=== PATIENT | male | born 1995 | race Caucasian/White ===

== ENCOUNTER 2017-07-02 17:54 | Inpatient (IN) | payer OTHER ==
[2017-07-02] MEDS ORDERED: SODIUM CHLORIDE 2,000 ML IV STA (18:02)
--- NOTE | 2017-07-02 18:14 | PDOC ---
Attending Attestation - HPI HPI: 07/02/17 18:38 The patient is a 21 year old male with a significant PMH of type I diabetes, nicotine dependence, methamphetamine dependence, opioid and cocaine abuse who presents to the emergency department via EMS for rule out diabetic ketoacidosis. The mother notes the patient disappeared for approximately 24 hours and came back home with altered mental status today. The patient's glucose was high at home and the mother gave the patient 30 units of Lantus but the glucose did not decrease. The patient was recently discharged from another facility for DKA. The patient denies chest pain, shortness of breath, headache and dizziness. Denies fever, chills, nausea, vomit, diarrhea and constipation. Denies dysuria, frequency, urgency and hematuria. Allergies: NKA Past surgical history: None reported. - Physicial Exam PE: 07/02/17 18:14 GENERAL: (+) Ill-appearing. (+) Thin. Awake, alert, and fully oriented, in no acute distress HEAD: No signs of trauma EYES: PERRLA, EOMI, sclera anicteric, conjunctiva clear ENT: (+) Dry mucous membranes. Auricles normal inspection, hearing grossly normal, nares patent, oropharynx clear without exudates. Moist mucosa NECK: Normal ROM, supple, no lymphadenopathy, JVD, or masses LUNGS: Breath sounds equal, clear to auscultation bilaterally. No wheezes, and no crackles HEART: (+) Tachycardic. Regular rate and rhythm, normal S1 and S2, no murmurs, rubs or gallops ABDOMEN: Soft, nontender, normoactive bowel sounds. No guarding, no rebound. No masses EXTREMITIES: Normal range of motion, no edema. No clubbing or cyanosis. No cords, erythema, or tenderness NEUROLOGICAL: Cranial nerves II through XII grossly intact. Normal speech, normal gait SKIN: Warm, Dry, normal turgor, no rashes or lesions noted. <Sapphire Rudd - Last Filed: 07/02/17 18:40> - Resident Resident Name: Penny Ventura - ED Attending Attestation I have performed the following: I have examined & evaluated the patient, The case was reviewed & discussed with the resident, I agree w/resident's findings & plan, Exceptions are as noted - Critical Care Time Total Critical Care Time: 45 Critical Care Statement: The care of this patient involved high complexity decision making to prevent further life threatening deterioration of the patient 's condition and/or to evaluate & treat vital organ system(s) failure or risk of failure. - Medical Decision Making 07/02/17 18:11 A portion of this note was written by my scribe, under my supervision. Vital Signs Temp Pulse Resp BP Pulse Ox 134 H 34 H 116/74 100 07/02/17 18:00 07/02/17 18:00 07/02/17 18:00 07/02/17 18:00 21-year-old male with past medical history of type 1 diabetes, nicotine dependence, methamphetamine dependence, opioid and cocaine abuse brought in by EMS for rule out diabetic ketoacidosis. The patient was recently discharged from another hospital for DKA. Since then, the mother reports that the patient had disappeared for 24 hours and with the patient came back, he was altered. The patient's glucose was over arrange and the mother had given 30 units of Lantus. Patient checked the sugars and sugars here in the ED and they were continually over range. The patient denies any fevers, nausea, vomiting, diarrhea but overall feels unwell. I suspect the patient likely has diabetic ketoacidosis. However, the patient is quite agitated here. This may be potentially from DKA but we'll need to potentially obtain a drug screen, salicylate and acetaminophen and alcohol level given prior history of polysubstance abuse. We'll give labs, IV fluids and likely initiate insulin bolus and drip once last result. Patient should ultimately be admitted to the hospital for further evaluation. <Hamilton Wright - Last Filed: 07/06/17 23:29>
[2017-07-02] MEDS ORDERED: LORazepam 2 MG/ML SDV VIAL ONE (18:47)
--- NOTE | 2017-07-02 19:06 | PDOC ---
History of Present Illness - General Chief Complaint: Blood Sugar Problem Stated Complaint: SUGAR PROBLEM Time Seen by Provider: 07/02/17 18:01 - History of Present Illness Initial Comments: 07/02/17 19:02 Patient is a 21 y.o. male with a PMH of IDDM (Type 1), substance abuse ( including methamphetamines, opioid and heroin abuse, states he is currently on methadone) who was BIBA for suspected DKA. As per EMS, patient was recently discharged for DKA from [facility], was unseen to his family for 24 hours and presented at home today with AMS. Patient's mother gave him 30 units Lantus and called EMS. Patient is alert but intermittently refusing to answer questions but denies any chest pain, dyspnea but does endorse abdominal pain and chills. NKDA Past History - Past Medical History Allergies/Adverse Reactions: Allergies Allergy/AdvReac Type Severity Reaction Status Date / Time No Known Allergies Allergy Unverified 04/17/17 23:51 Home Medications: Ambulatory Orders Insulin Aspart [Novolog] 100 unit SQ ASDIR 07/01/15 Insulin Glargine,Hum.rec.anlog [Lantus Solostar PEN (NF)] 30 units SQ HS Anemia: No Asthma: No Cancer: No Cardiac Disorders: No CVA: No COPD: No CHF: No Diabetes: Yes (Type 1 on Humolog and Lantus) GI Disorders: No Disorders: No HTN: No Hypercholesterolemia: No Kidney Stones: No Liver Disease: No Seizures: No - Surgical History Abdominal Surgery: No Appendectomy: No Cardiac Surgery: No Cholecystectomy: No Lung Surgery: No Neurologic Surgery: No Orthopedic Surgery: No - Reproductive History Testicular Surgery: No - Immunization History Immunization Up to Date: Yes - Suicide/Smoking/Psychosocial Hx Smoking History: Current every day smoker Have you smoked in the past 12 months: Yes Number of Cigarettes Smoked Daily: 20 Information on smoking cessation initiated: No 'Breaking Loose' booklet given: 04/17/17 Hx Alcohol Use: No Drug/Substance Use Hx: No Substance Use Type: Cocaine, Heroin Hx Substance Use Treatment: Yes ([facility]) Review of Systems - Review of Systems Respiratory: No: Shortness of Breath Cardiac (ROS): No: Chest Pain ABD/GI: Yes: Abdominal cramping *Physical Exam - Vital Signs Last Vital Signs Temp Pulse Resp BP Pulse Ox 134 H 34 H 116/74 100 07/02/17 18:00 07/02/17 18:00 07/02/17 18:00 07/02/17 18:00 - Physical Exam General Appearance: Yes: Disheveled, Thin HEENT: positive: EOMI, THIERRY. negative: TM Bulging, TM Dull, TM Erythema Neck: positive: Trachea midline, Supple Respiratory/Chest: positive: Lungs Clear, Other (Kussmaul Breathing). negative : Accessory Muscle Use, Labored Respiration, Rales, Wheezing Cardiovascular: positive: S1, S2 Gastrointestinal/Abdominal: positive: Normal Bowel Sounds, Soft Extremity: positive: Normal Capillary Refill, Normal Inspection Integumentary: positive: Normal Color, Dry, Warm Neurologic: positive: nursing center tutor II-XII NML intact, Alert (intermittently agitated), Motor Strength 5/5, Respond to painful stimul ED Treatment Course - LABORATORY CBC & Chemistry Diagram: 07/02/17 18:53 07/02/17 20:02 - ADDITIONAL ORDERS Additional order review: Laboratory Results 07/02/17 17:56 POC Glucometer > 400 07/02/17 17:56 POC Glucometer > 400 Medical Decision Making - Medical Decision Making 07/02/17 23:03 Patient is a 21 y.o. male who presents in likely DKA. At presentation patient displays Kussmaul breathing and is intermittently agitated. Full sepsis work- up initiated. Patient's Mother, Jennifer Figueroa , contacted, states patient was hospitalized 2 weeks previous for PNA. Patient completed Abx course. Patient intermittently "disappears" returned home today and was shows symptoms similar to previous DKA, patient was given 30 units Lantus. 07/02/17 23:04 Potassium 3.3 --> will replete 10 mEq/L + BS > 600, Insulin Drip @ 0.1 mg/kg. Patient remains hemodynamically stable and afebrile. UDS positive for Cocaine + Methampetamines -- will continue to monitor VS closely while in ED; Lactic Acid 3.1 --> --> IV NS x3. ICU paged for admission. 07/02/17 23:25 Case d/w [employer] in ICU - accepts for admission. No available beds this evening. Will monitor in ED. Oral Temp 97.8. Repeat BS 327. Repeat CMP and rectal temp pending. Clincal goal to close AG overnight. Patient resting comfortably. Patient to be signed out to Dr. Nicko Workman (Resident) and Dr. Aleman (Attending ). *DC/Admit/Observation/Transfer Diagnosis at time of Disposition: DKA, type 1 - Discharge Dispostion Condition at time of disposition: Fair Admit: Yes - Referrals - Patient Instructions - Post Discharge Activity
[2017-07-02 19:14] LABS: VENOUS PC02 22.1 mmHg (38-52); VENOUS PH 7.18 (7.32-7.42)
[2017-07-02 19:15] LABS: VENOUS PO2 48.1 mmHg (28-48)
[2017-07-02 19:18] LABS: HEMATOCRIT 31.8 % (35.4-49); HEMOGLOBIN 9.6 GM/dL (11.7-16.9); MCHC 30.2 g/dl (32.0-35.9); MEAN CELL VOLUME 109.4 fl (80-96); MEAN PLT VOLUME 9.1 fl (7.5-11.1); PLATELET COUNT 577 K/MM3 (134-434); RBC 2.91 M/mm3 (4.00-5.60); RDW 16.7 % (11.9-15.9); WHITE BLOOD COUNT 23.6 K/mm3 (4.0-10.0)
[2017-07-02 19:34] LABS: INR 0.92 (0.82-1.09); PROTHROMBIN TIME (PATIENT) 10.4 SEC (9.98-11.88)
[2017-07-02 19:36] LABS: ACTIVATED PTT 24.3 SECONDS (26.9-34.4)
[2017-07-02] MEDS ORDERED: INSULIN REGULAR 100 UNITS in SODIUM CHLORIDE 99 ML IVPB SCH (19:45)
[2017-07-02 20:37] LABS: ALCOHOL < 5.0 mg/dl (0-5)
[2017-07-02] MEDS ORDERED: SODIUM CHLORIDE 0.9% 1000 ML INFUS.BAG IV ONE (20:40)
[2017-07-02 20:41] LABS: ANISOCYTOSIS 1+; MACROCYTOSIS 0; PLATELET ESTIMATE INCREASED; TARGET CELLS 1+
[2017-07-02 20:41] LABS: URINE APPEARANCE CLEAR; URINE BILIRUBIN NEGATIVE (NEGATIVE); URINE BLOOD NEGATIVE (NEGATIVE); URINE COLOR STRAW; URINE GLUCOSE (UA) 3+ (NEGATIVE); URINE KETONE 2+ (NEGATIVE); URINE LEUK ESTERASE NEGATIVE (NEGATIVE); URINE NITRITE NEGATIVE (NEGATIVE); URINE PROTEIN NEGATIVE (NEGATIVE); URINE UROBILINOGEN NEGATIVE mg/dL (0.2-1.0)
[2017-07-02 21:08] LABS: ALBUMIN 2.3 g/dl (3.4-5.0); ANION GAP 27 (8-16); BILIRUBIN,TOTAL 0.9 mg/dL (0.2-1.0); BLOOD UREA NITROGEN 27 mg/dL (7-18); CALCIUM 7.3 mg/dL (8.5-10.1); CHLORIDE 99 mmol/L (98-107); CO2 11 mmol/L (21-32); CREATININE 1.5 mg/dL (0.7-1.3); POTASSIUM 3.5 mmol/L (3.5-5.1); SGOT/AST 278 U/L (15-37); SODIUM 137 mmol/L (136-145); TOT PROT 5.8 g/dl (6.4-8.2)
[2017-07-02 21:20] LABS: ALK PHOS 462 U/L (45-117)
[2017-07-02 21:22] LABS: SGPT/ALT 459 U/L (12-78)
[2017-07-02 21:23] LABS: GLUCOSE,RANDOM 697 mg/dL (74-106)
[2017-07-02 21:24] LABS: SALICYLATE < 4.0 mg/dl (0.0-30.0)
[2017-07-02 21:25] LABS: ACETAMINOPHEN < 2.0 ug/ml (10.0-30.0)
[2017-07-02 21:32] LABS: METHADONE, UR NEGATIVE ng/ml (CUTOFF=300); PHENCYCLIDINE,URINE NEGATIVE ng/ml (CUTOFF=25); URINE AMPHETAMINES NEGATIVE ng/ml (CUTOFF=500); URINE BARBITURATES NEGATIVE ng/ml (CUTOFF=200); URINE BENZODIAZEPINES NEGATIVE ng/ml (CUTOFF=200)
[2017-07-02 21:34] LABS: COCAINE, UR POSITIVE ng/ml (CUTOFF=300)
[2017-07-02 21:35] LABS: OPIATES, URI POSITIVE ng/ml (CUTOFF=300)
[2017-07-02] MEDS ORDERED: KCL 10 MEQ IVPB 10 MEQ/100 ML INFUS.BAG IVPB SCH (21:45)
--- NOTE | 2017-07-02 22:16 | PDOC ---
*Physical Exam - Vital Signs Last Vital Signs Temp Pulse Resp BP Pulse Ox 83 20 127/90 98 07/02/17 19:58 07/02/17 19:58 07/02/17 19:58 07/02/17 19:58 - Physical Exam General Appearance: No: Apparent Distress Gastrointestinal/Abdominal: positive: Soft. negative: Tender, Distended Neurologic: positive: Normal Response, Motor Strength 5/5 ED Treatment Course - LABORATORY CBC & Chemistry Diagram: 07/04/17 06:30 07/04/17 06:30 - ADDITIONAL ORDERS Additional order review: Laboratory Results 07/02/17 07/02/17 07/02/17 20:30 20:30 20:07 PT with INR INR PTT (Actin FS) VBG pH POC VBG pCO2 POC VBG pO2 Mixed VBG HCO3 Sodium Potassium Chloride Carbon Dioxide Anion Gap BUN Creatinine Creat Clearance w eGFR POC Glucometer Random Glucose Lactic Acid Calcium Phosphorus Magnesium Total Bilirubin AST ALT Alkaline Phosphatase Creatine Kinase Troponin I Total Protein Albumin TSH Urine Color Straw Urine Appearance Clear Urine pH 5.0 Ur Specific [place] 1.017 Urine Protein Negative Urine Glucose (UA) 3+ H Urine Ketones 2+ H Urine Blood Negative Urine Nitrite Negative Urine Bilirubin Negative Urine Urobilinogen Negative Ur Leukocyte Esterase Negative Salicylates < 4.0 Opiates Screen Positive Methadone Screen Negative Acetaminophen < 2.0 L Barbiturate Screen Negative Phencyclidine Screen Negative Ur Amphetamines Screen Negative MDMA (Ecstasy) Screen Negative Benzodiazepines Screen Negative Cocaine Screen Positive U Marijuana (THC) Screen Negative Alcohol, Quantitative < 5.0 Acetone, Qual Blood Type Antibody Screen 07/02/17 07/02/17 07/02/17 20:07 20:02 19:38 PT with INR INR PTT (Actin FS) VBG pH POC VBG pCO2 POC VBG pO2 Mixed VBG HCO3 Sodium 137 Potassium 3.5 Chloride 99 Carbon Dioxide 11 L D Anion Gap 27 H BUN 27 H D Creatinine 1.5 H D Creat Clearance w eGFR 58.00 POC Glucometer Random Glucose 697 H* D Lactic Acid Calcium 7.3 L Phosphorus Magnesium Total Bilirubin 0.9 D AST 278 H D ALT 459 H D Alkaline Phosphatase 462 H D Creatine Kinase 49 Troponin I 0.05 Total Protein 5.8 L Albumin 2.3 L TSH Urine Color Urine Appearance Urine pH Ur Specific [place] Urine Protein Urine Glucose (UA) Urine Ketones Urine Blood Urine Nitrite Urine Bilirubin Urine Urobilinogen Ur Leukocyte Esterase Salicylates Opiates Screen Methadone Screen Acetaminophen Barbiturate Screen Phencyclidine Screen Ur Amphetamines Screen MDMA (Ecstasy) Screen Benzodiazepines Screen Cocaine Screen U Marijuana (THC) Screen Alcohol, Quantitative Acetone, Qual Positive large 3+ Cancelled Blood Type Antibody Screen 07/02/17 07/02/17 07/02/17 19:38 18:53 18:53 PT with INR INR PTT (Actin FS) VBG pH POC VBG pCO2 POC VBG pO2 Mixed VBG HCO3 Sodium Potassium Chloride Carbon Dioxide Anion Gap BUN Creatinine Creat Clearance w eGFR POC Glucometer Random Glucose Lactic Acid 3.0 H* Calcium Phosphorus Magnesium Total Bilirubin AST ALT Alkaline Phosphatase Creatine Kinase Troponin I Total Protein Albumin TSH Urine Color Urine Appearance Urine pH Ur Specific [place] Urine Protein Urine Glucose (UA) Urine Ketones Urine Blood Urine Nitrite Urine Bilirubin Urine Urobilinogen Ur Leukocyte Esterase Salicylates Cancelled Opiates Screen Methadone Screen Acetaminophen Cancelled Barbiturate Screen Phencyclidine Screen Ur Amphetamines Screen MDMA (Ecstasy) Screen Benzodiazepines Screen Cocaine Screen U Marijuana (THC) Screen Alcohol, Quantitative Cancelled Acetone, Qual Blood Type B POSITIVE Antibody Screen Negative 07/02/17 07/02/17 07/02/17 18:53 18:53 18:53 PT with INR 10.40 INR 0.92 PTT (Actin FS) 24.3 L VBG pH 7.18 L* D POC VBG pCO2 22.1 L D POC VBG pO2 48.1 H D Mixed VBG HCO3 7.9 L* Sodium Cancelled Potassium Cancelled Chloride Cancelled Carbon Dioxide Cancelled Anion Gap Cancelled BUN Cancelled Creatinine Cancelled Creat Clearance w eGFR Cancelled POC Glucometer Random Glucose Cancelled Lactic Acid Calcium Cancelled Phosphorus Cancelled Magnesium Cancelled Total Bilirubin Cancelled AST Cancelled ALT Cancelled Alkaline Phosphatase Cancelled Creatine Kinase Cancelled Troponin I Cancelled Total Protein Cancelled Albumin Cancelled TSH Cancelled Urine Color Urine Appearance Urine pH Ur Specific [place] Urine Protein Urine Glucose (UA) Urine Ketones Urine Blood Urine Nitrite Urine Bilirubin Urine Urobilinogen Ur Leukocyte Esterase Salicylates Opiates Screen Methadone Screen Acetaminophen Barbiturate Screen Phencyclidine Screen Ur Amphetamines Screen MDMA (Ecstasy) Screen Benzodiazepines Screen Cocaine Screen U Marijuana (THC) Screen Alcohol, Quantitative Acetone, Qual Blood Type Antibody Screen 07/02/17 17:56 PT with INR INR PTT (Actin FS) VBG pH POC VBG pCO2 POC VBG pO2 Mixed VBG HCO3 Sodium Potassium Chloride Carbon Dioxide Anion Gap BUN Creatinine Creat Clearance w eGFR POC Glucometer > 400 Random Glucose Lactic Acid Calcium Phosphorus Magnesium Total Bilirubin AST ALT Alkaline Phosphatase Creatine Kinase Troponin I Total Protein Albumin TSH Urine Color Urine Appearance Urine pH Ur Specific [place] Urine Protein Urine Glucose (UA) Urine Ketones Urine Blood Urine Nitrite Urine Bilirubin Urine Urobilinogen Ur Leukocyte Esterase Salicylates Opiates Screen Methadone Screen Acetaminophen Barbiturate Screen Phencyclidine Screen Ur Amphetamines Screen MDMA (Ecstasy) Screen Benzodiazepines Screen Cocaine Screen U Marijuana (THC) Screen Alcohol, Quantitative Acetone, Qual Blood Type Antibody Screen 07/02/17 07/02/17 18:53 17:56 RBC 2.91 L D MCV 109.4 H D MCHC 30.2 L RDW 16.7 H MPV 9.1 Neutrophils % No Result Required. Lymphocytes % No Result Required. POC Glucometer > 400 - Medications Given in the ED: ED Medications Discontinued Medications Generic Name Dose Route Start Last Admin Trade Name Cherelle PRN Reason Stop Dose Admin Diphenhydramine HCl 25 mg 07/02/17 18:47 07/02/17 18:50 Benadryl Injection - IVPUSH 07/02/17 18:48 25 mg ONCE ONE Administration Sodium Chloride 2,000 mls @ 1,000 mls/hr 07/02/17 18:02 07/02/17 19:13 Normal Saline - IV 07/02/17 20:01 1,000 mls/hr ASDIR STA Administration Insulin Human Regular 100 100 mls @ 6.8 mls/hr 07/02/17 19:45 07/02/17 21:36 units/ Sodium Chloride IVPB Not Given TITR ROBIN Protocol 0.1 UNITS/KG/HR Lorazepam 1 mg 07/02/17 18:39 07/02/17 19:36 Ativan Injection - IM 07/02/17 18:40 Not Given ONCE ONE Lorazepam 1 mg 07/02/17 18:47 07/02/17 18:50 Ativan Injection - IVPUSH 07/02/17 18:48 1 mg ONCE ONE Administration Sodium Chloride 1,000 ml 07/02/17 20:40 07/02/17 20:46 Normal Saline - IV 07/02/17 20:41 1,000 ml ONCE ONE Administration Medical Decision Making - Medical Decision Making 07/02/17 22:15 Pt received on signout at 7pm from Dr. Wright. Labs reviewed, pt appears 07/10/17 22:47 Completing note now: Received pt on signout, was noted to be sleeping but easily arousable. For DKA, was on insulin gtt, IVF with KCl. Also with transaminitis, no abd pain/tnd. After treatment overnight, gap closed and pt received long acting insulin, was given food. Admitted to floor for further management. *DC/Admit/Observation/Transfer Diagnosis at time of Disposition: DKA, type 1 - Discharge Dispostion Disposition: AGAINST MEDICAL ADVICE Condition at time of disposition: Fair - Referrals - Patient Instructions - Post Discharge Activity
[2017-07-02] MEDS: INSULIN REGULAR 100 UNITS in SODIUM CHLORIDE 99 ML IVPB SCH (22:55)
[2017-07-02] MEDS ORDERED: SODIUM CHLORIDE 0.9% 500 ML INFUS.BAG IV ONE (23:40)
[2017-07-03 00:17] LABS: ALBUMIN 2.3 g/dl (3.4-5.0); ANION GAP 21 (8-16); BILIRUBIN,TOTAL 0.9 mg/dL (0.2-1.0); BLOOD UREA NITROGEN 22 mg/dL (7-18); CALCIUM 7.7 mg/dL (8.5-10.1); CHLORIDE 105 mmol/L (98-107); CO2 19 mmol/L (21-32); CREATININE 1.5 mg/dL (0.7-1.3); POTASSIUM 3.3 mmol/L (3.5-5.1); SGOT/AST 265 U/L (15-37); SODIUM 145 mmol/L (136-145); TOT PROT 5.8 g/dl (6.4-8.2)
[2017-07-03 00:18] LABS: ALK PHOS 443 U/L (45-117)
[2017-07-03 00:19] LABS: SGPT/ALT 448 U/L (12-78)
[2017-07-03 00:20] LABS: GLUCOSE,RANDOM 338 mg/dL (74-106)
[2017-07-03] MEDS ORDERED: POTASSIUM CHLORIDE 20 MEQ PREMIX IVPB 100 ML IVPB ONE (00:20)
[2017-07-03] MEDS ORDERED: KCL 10 MEQ IVPB 20 MEQ/200 ML INFUS.BAG IVPB ONE (00:25)
[2017-07-03] MEDS ORDERED: SODIUM CHLORIDE 1,000 ML IV SCH ×3 (00:45→18:00)
[2017-07-03] MEDS: DEXTROSE 5%-0.45% SALINE 1,000 ML IV SCH ×2 (02:28→02:30)
[2017-07-03 04:45] LABS: VENOUS PC02 36.7 mmHg (38-52); VENOUS PH 7.45 (7.32-7.42); VENOUS PO2 43.8 mmHg (28-48)
[2017-07-03 05:08] LABS: ALBUMIN 2.2 g/dl (3.4-5.0); ALK PHOS 418 U/L (45-117); ANION GAP 12 (8-16); BILIRUBIN,TOTAL 0.8 mg/dL (0.2-1.0); BLOOD UREA NITROGEN 19 mg/dL (7-18); CALCIUM 7.2 mg/dL (8.5-10.1); CHLORIDE 113 mmol/L (98-107); CO2 24 mmol/L (21-32); CREATININE 1.4 mg/dL (0.7-1.3); GLUCOSE,RANDOM 141 mg/dL (74-106); POTASSIUM 3.6 mmol/L (3.5-5.1); SGOT/AST 317 U/L (15-37); SGPT/ALT 438 U/L (12-78); SODIUM 149 mmol/L (136-145); TOT PROT 5.5 g/dl (6.4-8.2)
[2017-07-03] MEDS ORDERED: INSULIN DETEMIR 100 UNITS/ML MDV SQ ONE ×3 (05:35→06:48)
[2017-07-03 09:44] LABS: BASO % 0.8 % (0-2.0); EOS % 1.2 % (0-4.5); HEMATOCRIT 22.6 % (35.4-49); HEMOGLOBIN 7.6 GM/dL (11.7-16.9); LYMPH % 16.9 % (8-40); MCH 32.7 pg (25.7-33.7); MCHC 33.5 g/dl (32.0-35.9); MEAN CELL VOLUME 97.7 fl (80-96); MEAN PLT VOLUME 8.3 fl (7.5-11.1); MONO % 6.1 % (3.8-10.2); PLATELET COUNT 373 K/MM3 (134-434); RBC 2.31 M/mm3 (4.00-5.60); RDW 15.6 % (11.9-15.9); WHITE BLOOD COUNT 15.4 K/mm3 (4.0-10.0)
[2017-07-03] MEDS ORDERED: SODIUM CHLORIDE 0.45% 1,000 ML IV SCH (11:00)
--- NOTE | 2017-07-03 13:17 | HP ---
Admitting History and Physical - Smoking History Smoking history: Current every day smoker Have you smoked in the past 12 months: Yes Aproximately how many cigarettes per day: 20 - Alcohol/Substance Use Hx Alcohol Use: No Home Medications - Allergies Allergies/Adverse Reactions: Allergies Allergy/AdvReac Type Severity Reaction Status Date / Time No Known Allergies Allergy Unverified 04/17/17 23:51 - Home Medications Home Medications: Ambulatory Orders Insulin Aspart [Novolog] 100 unit SQ ASDIR 07/01/15 Insulin Glargine,Hum.rec.anlog [Lantus Solostar PEN (NF)] 30 units SQ HS Physical Examination Vital Signs: Vital Signs Temperature 98.9 F 07/03/17 09:24 Pulse Rate 87 07/03/17 09:24 Respiratory Rate 16 07/03/17 09:24 Blood Pressure 139/82 07/03/17 09:24 O2 Sat by Pulse Oximetry (%) 97 07/03/17 09:24 Labs: CBC, BMP 07/03/17 09:30 07/03/17 04:21
[2017-07-03] MEDS ORDERED: LEVOFLOXACIN 500 MG IVPB 500 MG/100 ML BAG IVPB ONE (13:18)
[2017-07-03] MEDS ORDERED: METRONIDAZOLE 500 MG PREMIXED 500 MG/100 ML MG IVPB ONE (13:18)
[2017-07-03] MEDS: METRONIDAZOLE 500 MG PREMIXED 500 MG/100 ML MG IVPB SCH ×2 (13:48→17:38)
[2017-07-03 14:09] LABS: AMYLASE 44 U/L (25-115)
[2017-07-03 14:16] LABS: LIPASE 437 U/L (73-393)
[2017-07-03 14:48] VITALS: BMI 23.5
--- NOTE | 2017-07-03 14:52 | CON.ID ---
Consult Consult Specialty:: infectious diseases Reason for Consultation:: ams,r/o uti - History of Present Illness History of Present Illness: 21 y.o. male with a PMH of IDDM (Type 1), substance abuse (including methamphetamines, opioid and heroin abuse, states he is currently on methadone) who was BIBA for suspected DKA. As per EMS, patient was recently discharged for DKA from [facility], was unseen to his family for 24 hours and presented at home today with AMS. Patient's mother gave him 30 units Lantus and called EMS. patient currently feels much better patient it seems also has known h/o of hep c patient is hungry and wants to eat - History Source History Provided By: Patient, Medical Record Limitations to Obtaining History: Poor Historian - Alcohol/Substance Use Hx Alcohol Use: No - Smoking History Smoking history: Current every day smoker Have you smoked in the past 12 months: Yes Aproximately how many cigarettes per day: 20 Home Medications - Allergies Allergies/Adverse Reactions: Allergies Allergy/AdvReac Type Severity Reaction Status Date / Time No Known Allergies Allergy Unverified 04/17/17 23:51 - Home Medications Home Medications: Ambulatory Orders Insulin Aspart [Novolog] 100 unit SQ ASDIR 07/01/15 Insulin Glargine,Hum.rec.anlog [Lantus Solostar PEN (NF)] 30 units SQ HS Review of Systems - Review of Systems Constitutional: reports: No Symptoms Eyes: reports: No Symptoms HENT: reports: No Symptoms Neck: reports: No Symptoms Cardiovascular: reports: No Symptoms Respiratory: reports: No Symptoms Gastrointestinal: reports: No Symptoms Genitourinary: reports: No Symptoms Musculoskeletal: reports: No Symptoms Integumentary: reports: No Symptoms Neurological: reports: Change in LOC Endocrine: reports: Other (increased sugars) Hematology/Lymphatic: reports: No Symptoms Psychiatric: reports: No Symptoms Physical Exam Vital Signs: Vital Signs Temperature 98.9 F 07/03/17 09:24 Pulse Rate 87 07/03/17 09:24 Respiratory Rate 16 07/03/17 09:24 Blood Pressure 139/82 07/03/17 09:24 O2 Sat by Pulse Oximetry (%) 97 07/03/17 09:24 Constitutional: Yes: No Distress, Calm, Thin Eyes: Yes: Conjunctiva Clear HENT: Yes: Atraumatic, Normocephalic Neck: Yes: Supple, Trachea Midline Cardiovascular: Yes: Regular Rate and Rhythm Respiratory: Yes: Regular, CTA Bilaterally Gastrointestinal: Yes: Normal Bowel Sounds, Soft Extremities: Yes: WNL Neurological: Yes: Alert, Oriented Psychiatric: Yes: Alert, Oriented Labs: CBC, BMP 07/03/17 09:30 07/03/17 04:21 Imaging - Results X-ray: Report Reviewed, Image Reviewed Ultrasound: Report Reviewed, Image Reviewed Assessment/Plan patient evaluated i think all his symptoms are coming from dehydration looked at all the cx all of them are negative anemia uncontrolled dm Ischemic hepatitis Code(s): K75.9 - INFLAMMATORY LIVER DISEASE, UNSPECIFIED dehydration plan will not start any abx close watch hydration rest as per primary team
[2017-07-03] MEDS: LEVOFLOXACIN 500 MG IVPB 500 MG/100 ML BAG IVPB SCH (15:08)
[2017-07-03] MEDS ORDERED: PNEUMOC 13-VAL CONJ-DIP CRM/PF 0.5 ML DISP.SYRIN IM ONE (16:15)
--- NOTE | 2017-07-03 17:16 | CONSULT ---
Consult Consult Specialty:: Hematology - History of Present Illness History of Present Illness: 21 y/o male with PMH of Type I DM, DKA cocaine abuse , we were asked to see for Anemia. He denies nausea, no vomiting, no dysphagia. Pt mentioned he has h/o Hep C. - - History Source History Provided By: Patient, Medical Record - Alcohol/Substance Use Hx Alcohol Use: No - Smoking History Smoking history: Current every day smoker Have you smoked in the past 12 months: Yes Aproximately how many cigarettes per day: 20 Home Medications - Allergies Allergies/Adverse Reactions: Allergies Allergy/AdvReac Type Severity Reaction Status Date / Time No Known Allergies Allergy Unverified 04/17/17 23:51 - Home Medications Home Medications: Ambulatory Orders Insulin Aspart [Novolog] 100 unit SQ ASDIR 07/01/15 Insulin Glargine,Hum.rec.anlog [Lantus Solostar PEN (NF)] 30 units SQ HS Review of Systems - Review of Systems Constitutional: reports: Lethargy, Loss of Appetite. denies: Unintentional Wgt. Loss HENT: denies: Difficult Swallowing Neck: denies: Decreased ROM, Lumps Cardiovascular: denies: Chest Pain, Edema, Palpitations, Shortness of Breath Respiratory: denies: Cough, Exercise Intolerance, Orthopnea Genitourinary: denies: Burning Physical Exam Vital Signs: Vital Signs Temperature 98.9 F 07/03/17 09:24 Pulse Rate 94 H 07/03/17 14:42 Respiratory Rate 18 07/03/17 14:42 Blood Pressure 119/77 07/03/17 14:42 O2 Sat by Pulse Oximetry (%) 97 07/03/17 09:24 Constitutional: Yes: No Distress, Calm Eyes: Yes: Conjunctiva Clear HENT: Yes: Atraumatic, Normocephalic Neck: Yes: Supple Cardiovascular: Yes: Regular Rate and Rhythm Respiratory: Yes: Regular Gastrointestinal: Yes: Normal Bowel Sounds, Soft Edema: No Neurological: Yes: Alert, Oriented Psychiatric: Yes: Alert, Oriented Labs: CBC, BMP 07/03/17 09:30 07/03/17 04:21 Imaging - Results X-ray: Report Reviewed Assessment/Plan Anemia: Likely ACD, from DM/DKA/HepC For screening labs including DANIELLE transfuse for <7 r/o hemolysis in the setting of cocaine abuse Elevated LFTs Preserved Bili/Coags pt mentioned that he has h/o Hep C, from IVDA. component of ischemia is not ruled out. IVF. Hep C ,A, B panel \HCV VL GI c/s noted Uncontrolled DM: Endo c/s Monitor WD consider Detox consult.. consider HIV test d/w RN
[2017-07-03] MEDS: INSULIN SLIDING SCALE (NOVOLOG) 1 VIAL SQ SCH ×2 (17:38→21:03)
--- NOTE | 2017-07-03 17:59 | CON.GI ---
Consult Consult Specialty:: gastroenterology Referred by:: Dr Goodwin - History of Present Illness History of Present Illness: 21 y/o male with PMH OF DKA cocaine abude was asked to be seen because of moderated severe elevation of LFTS associated with uncontrolled diabetes. He denies nausea, no vomiting, no dysphagia - Alcohol/Substance Use Hx Alcohol Use: No - Smoking History Smoking history: Current every day smoker Have you smoked in the past 12 months: Yes Aproximately how many cigarettes per day: 20 Home Medications - Allergies Allergies/Adverse Reactions: Allergies Allergy/AdvReac Type Severity Reaction Status Date / Time No Known Allergies Allergy Unverified 04/17/17 23:51 - Home Medications Home Medications: Ambulatory Orders Insulin Aspart [Novolog] 100 unit SQ ASDIR 07/01/15 Insulin Glargine,Hum.rec.anlog [Lantus Solostar PEN (NF)] 30 units SQ HS Physical Exam-GI Vital Signs: Vital Signs Temperature 98.9 F 07/03/17 09:24 Pulse Rate 94 H 07/03/17 14:42 Respiratory Rate 18 07/03/17 14:42 Blood Pressure 119/77 07/03/17 14:42 O2 Sat by Pulse Oximetry (%) 97 07/03/17 09:24 Constitutional: Yes: Well Nourished Eyes: Yes: Conjunctiva Clear HENT: Yes: Atraumatic Neck: Yes: Supple Cardiovascular: Yes: Regular Rate and Rhythm Respiratory: Yes: CTA Bilaterally ...Palpate: Yes: Soft. No: Firm/Rigid, Guarding, Hepatomegaly, Mass, Pulsatile Mass, Splenomegaly, Tenderness Labs: CBC, BMP 07/03/17 09:30 07/03/17 04:21 INR, PTT INR 0.92 (0.82-1.09) 07/02/17 18:53 Problem List - Problems (1) Ischemic hepatitis Assessment/Plan: secondary to cocaine abuse and uncontrolled Diabetes leading to dehydration R> IV hydration expect LfTS to normalize Code(s): K75.9 - INFLAMMATORY LIVER DISEASE, UNSPECIFIED
[2017-07-03 18:48] LABS: BASO % 1.5 % (0-2.0); HEMATOCRIT 23.1 % (35.4-49); HEMOGLOBIN 7.8 GM/dL (11.7-16.9); LYMPH % 17.8 % (8-40); MCH 33.1 pg (25.7-33.7); MCHC 33.6 g/dl (32.0-35.9); MEAN CELL VOLUME 98.6 fl (80-96); MEAN PLT VOLUME 8.8 fl (7.5-11.1); MONO % 6.4 % (3.8-10.2); NEUT % 73.3 % (42.8-82.8); PLATELET COUNT 340 K/MM3 (134-434); RBC 2.34 M/mm3 (4.00-5.60); RDW 15.5 % (11.9-15.9)
[2017-07-03] MEDS ORDERED: INSULIN (NOVOLOG) ASPART 100 UNITS/ML 10ML VIAL ONE (21:02)
[2017-07-03] MEDS: INSULIN REGULAR 100 UNITS in SODIUM CHLORIDE 99 ML IVPB SCH (21:30)
[2017-07-03] MEDS ORDERED: INSULIN DETEMIR 100 UNITS/ML MDV SQ SCH (22:00)
[2017-07-04] MEDS: METRONIDAZOLE 500 MG PREMIXED 500 MG/100 ML MG IVPB SCH ×2 (01:09→10:53)
[2017-07-04 06:36] VITALS: BP 117/71; PULSE 79; TEMP 97.9
[2017-07-04] MEDS: INSULIN SLIDING SCALE (NOVOLOG) 1 VIAL SQ SCH ×2 (08:03→11:13)
--- NOTE | 2017-07-04 08:07 | EKG ---
Test Reason : Blood Pressure : / mmHG Vent. Rate : 080 BPM Atrial Rate : 080 BPM P-R Int : 132 ms QRS Dur : 088 ms QT Int : 400 ms P-R-T Axes : 076 080 070 degrees QTc Int : 461 ms NORMAL SINUS RHYTHM NORMAL ECG WHEN COMPARED WITH ECG OF 18-APR-2017 08:33, NO SIGNIFICANT CHANGE WAS FOUND Confirmed by ALFREDO SMITH MD ([id number]) on 07/04/2017 8:06:58 AM Referred By: Confirmed By:ALFREDO SMITH MD
[2017-07-04 08:10] LABS: BASO % 1.2 % (0-2.0); EOS % 0.8 % (0-4.5); HEMATOCRIT 24.6 % (35.4-49); HEMOGLOBIN 8.3 GM/dL (11.7-16.9); LYMPH % 37.9 % (8-40); MCHC 33.5 g/dl (32.0-35.9); MEAN CELL VOLUME 98.5 fl (80-96); MEAN PLT VOLUME 8.1 fl (7.5-11.1); MONO % 7.8 % (3.8-10.2); NEUT % 52.3 % (42.8-82.8); PLATELET COUNT 318 K/MM3 (134-434); WHITE BLOOD COUNT 4.2 K/mm3 (4.0-10.0)
[2017-07-04 08:45] LABS: ALBUMIN 2.2 g/dl (3.4-5.0); ANION GAP 8 (8-16); BLOOD UREA NITROGEN 10 mg/dL (7-18); CALCIUM 7.6 mg/dL (8.5-10.1); CHLORIDE 102 mmol/L (98-107); CO2 30 mmol/L (21-32); GLUCOSE,RANDOM 141 mg/dL (74-106); POTASSIUM 3.6 mmol/L (3.5-5.1); SODIUM 140 mmol/L (136-145)
[2017-07-04] MEDS: LEVOFLOXACIN 500 MG IVPB 500 MG/100 ML BAG IVPB SCH (10:12)
[2017-07-04 10:33] LABS: ALK PHOS 471 U/L (45-117); BILIRUBIN,TOTAL 1.2 mg/dL (0.2-1.0); CREATININE 0.9 mg/dL (0.7-1.3); TOT PROT 5.7 g/dl (6.4-8.2)
[2017-07-04 10:44] LABS: LDH 1105 U/L (87-241); SGOT/AST 2247 U/L (15-37); SGPT/ALT 872 U/L (12-78)
[2017-07-04] MEDS ORDERED: INSULIN (NOVOLOG) ASPART 100 UNITS/ML 10ML VIAL ONE (11:12)
--- NOTE | 2017-07-04 13:01 | CONSULT ---
Consult Consult Specialty:: endocrine Referred by:: dr.rocco solis Reason for Consultation:: diabetes mellitus - History of Present Illness History of Present Illness: patient signed out ama - Alcohol/Substance Use Hx Alcohol Use: No - Smoking History Smoking history: Current every day smoker Have you smoked in the past 12 months: Yes Aproximately how many cigarettes per day: 20 Home Medications - Allergies Allergies/Adverse Reactions: Allergies Allergy/AdvReac Type Severity Reaction Status Date / Time No Known Allergies Allergy Unverified 04/17/17 23:51 - Home Medications Home Medications: Ambulatory Orders Insulin Aspart [Novolog] 100 unit SQ ASDIR 07/01/15 Insulin Glargine,Hum.rec.anlog [Lantus Solostar PEN (NF)] 30 units SQ HS Physical Exam Vital Signs: Vital Signs Temperature 97.9 F 07/04/17 06:35 Pulse Rate 79 07/04/17 06:35 Respiratory Rate 79 H 07/04/17 09:00 Blood Pressure 117/71 07/04/17 06:35 O2 Sat by Pulse Oximetry (%) 97 07/03/17 09:24 Labs: CBC, BMP 07/04/17 06:30 07/04/17 06:30 Assessment/Plan dka iddm uncontrolled diet and compliance issues advised to follow up as outpatient signed out ama take insulin as direction given will need close monitoring outpatient
[2017-07-05 06:06] LABS: SERUM IRON SATURATION 39 % (15-55); TOTAL IRON BINDING CAPACITY 246 ug/dL (250-450); UIBC 150 ug/dL (111-343)
[2017-07-06 00:11] LABS: HBSAG SCREEN Negative (Negative); HEP A AB, IGM Negative (Negative); HEP B CORE AB, TOT Negative (Negative)
[2017-07-06 14:14] LABS: HGB SOLUBILITY Negative (Negative); Hgb A 97.7 % (96.4-98.8); Hgb C 0 % (0.0); Hgb F 0 % (0.0-2.0); Hgb S 0 % (0.0)
--- NOTE | 2017-07-10 21:36 | DS ---
Physical Examination Vital Signs: Vital Signs Temperature 97.9 F 07/04/17 06:35 Pulse Rate 79 07/04/17 06:35 Respiratory Rate 79 H 07/04/17 09:00 Blood Pressure 117/71 07/04/17 06:35 O2 Sat by Pulse Oximetry (%) 97 07/03/17 09:24 Labs: CBC, BMP 07/04/17 06:30 07/04/17 06:30 Discharge Summary Reason For Visit: TYPE 1 DIABETES MELLITUS W/KETOACIDOSIS Condition: Fair - Instructions Disposition: AGAINST MEDICAL ADVICE - Home Medications Comprehensive Discharge Medication List: Ambulatory Orders Insulin Aspart [Novolog] 100 unit SQ ASDIR 07/01/15 Insulin Glargine,Hum.rec.anlog [Lantus Solostar PEN (NF)] 30 units SQ HS
== END 2017-07-04 12:52 | disposition left against medical advice (07) | DRG 420 ==
LOC: JER 17:54 → JERBED 07-03 00:08 → UNDOADMIN 07-03 00:18 → JERBED 07-03 00:18 → J6S 07-03 15:44
PROVIDERS: ADMIT Internal Medicine; ATTEND Internal Medicine
DX: E10.10 Type 1 diabetes mellitus with ketoacidosis without coma (principal); F17.210 Nicotine dependence, cigarettes, uncomplicated; F15.20 Other stimulant dependence, uncomplicated; F14.10 Cocaine abuse, uncomplicated; Z79.4 Long term (current) use of insulin; F11.20 Opioid dependence, uncomplicated; B19.20 Unspecified viral hepatitis C without hepatic coma; E86.0 Dehydration
CPT/HCPCS: 36415; 71045-TC; 76700-TC; 80053; 80307; 81003; 82009; 82150; 82550; 82607; 82728; 82747; 82784; 82803; 82947; 82962; 83021; 83540; 83550; 83605; 83615; 83690; 84155; 84165; 84484; 85014; 85025; 85044; 85610; 85660; 85730; 86038; 86334; 86704; 86706; 86708; 86803; 86850; 86900; 86901; 87040; 87086; 87340; 87522; 93005; 93010; 99285-25

== ENCOUNTER 2017-07-23 22:44 | Inpatient (IN) | payer OTHER ==
[2017-07-23] MEDS ORDERED: NALOXONE HCL 0.4 MG/ML VIAL ONE ×2 (22:54→23:13)
[2017-07-23] MEDS ORDERED: SODIUM CHLORIDE 1,000 ML IV STA (23:14)
[2017-07-23] MEDS ORDERED: NALOXONE HCL 0.4 MG/ML VIAL IVPUSH ONE (23:15)
[2017-07-23] MEDS ORDERED: SODIUM CHLORIDE 0.9% 500 ML INFUS.BAG IV ONE (23:16)
[2017-07-23] MEDS ORDERED: ONDANSETRON 4 MG/2 ML VIAL IVPUSH ONE (23:16)
[2017-07-23] MEDS ORDERED: PIPERACILLIN/TAZOB 4.5 GM 4.5 GM in DEXTROSE 5%-WATER - 100 ML IVPB ONE (23:17)
[2017-07-23] MEDS ORDERED: VANCOMYCIN 1,000 MG in DEXTROSE 5%-WATER - 250 ML IVPB ONE (23:17)
[2017-07-23] MEDS ORDERED: PANTOPRAZOLE SODIUM 40 MG VIAL IVPUSH ONE (23:17)
--- NOTE | 2017-07-23 23:25 | PDOC ---
Attending Attestation - HPI HPI: 07/24/17 02:15 The patient is a 21 year old male with history of IDDM, Hep C, polysubstance abuse, brought to the ED for decreased mental status and difficulty breathing that began this evening. The patient states he last used heroin approximately 2 hours prior to ED arrival. He also reports he last took his Insulin several hours ago. Remainder of history limited secondary to clinical condition - Physicial Exam PE: 07/24/17 02:15 GENERAL: Awake, alert, ill appearing and cachectic HEAD: No signs of trauma EYES: PERRLA, EOMI, sclera anicteric, conjunctiva clear ENT: Auricles normal inspection, hearing grossly normal, nares patent, +Dry oral mucosa with dried coffee ground emesis NECK: Normal ROM, supple, no lymphadenopathy, JVD, or masses LUNGS: Tachypneic to 42 with kussmaul breathing. No wheezes, and no crackles HEART: Tachycardic to 147, regular rhythm, normal S1 and S2, no murmurs, rubs or gallops ABDOMEN: Soft, nontender, normoactive bowel sounds. No guarding, no rebound. No masses EXTREMITIES: Normal range of motion, no edema. No clubbing or cyanosis. No cords, erythema, or tenderness BACK: No midline spinal tenderness in cervical/thoracic/lumbar region NEUROLOGICAL: Deferred secondary to clinical condition SKIN: Track crook on upper extremities and the right side of neck. Left antecubital fossa has a fluctuant, indurated, erythematous abscess, spontaneously draining purulent material. - Medical Decision Making 07/24/17 02:15 Documentation prepared by Krysta Garcia, acting as medical esthetician for Hector Bhakta MD. <Krysta Garcia - Last Filed: 07/24/17 02:15> - Resident Resident Name: Dino Reilly - ED Attending Attestation I have performed the following: I have examined & evaluated the patient, The case was reviewed & discussed with the resident, I agree w/resident's findings & plan, Exceptions are as noted - Medical Decision Making 07/23/17 23:22 21-year-old male with a history of type 1 diabetes, polysubstance abuse presents to the emergency department with depressed mental status, hypotension to 70/48, tachycardia to 140, and tachypnea to 44. Patient given Narcan with some improvement in mental status. Fingerstick on arrival critically high. An IO was placed in his R tibia with fluids running for resuscitation and 2 peripheral IVs were placed. Patient likely in DKA, and may have also overdosed on heroin today, admits to using a bag. May also be septic given abscess to LUE. PT covered with Vanc/Zosyn. Will obtain labs, XR, UA, pt will likely require ICU. 07/24/17 02:[address] Goodwin to the ICU for DKA and presumed sepsis. ICU PROJECT ENGINEER aware but no beds. Initial lactate 13, K repleted, Insulin gtt initiated. Case discussed in detail with admitting physician including history, physical exam and ancillary studies. Admitting physician has assumed care for the patient, will follow all pending diagnostics and will complete the evaluation and treatment. <Hector Bhakta - Last Filed: 07/24/17 06:16> Heart Score/ECG Review #1 07/24/17 06:15 Twelve-lead EKG was performed and reviewed by me. Sinus tachycardia, rate 121. Normal axis. No ST elevations. <Hector Bhakta - Last Filed: 07/24/17 06:16>
[2017-07-23 23:50] LABS: HEMATOCRIT 30.4 % (35.4-49); HEMOGLOBIN 9.9 GM/dL (11.7-16.9); MCH 34.1 pg (25.7-33.7); MCHC 32.6 g/dl (32.0-35.9); MEAN CELL VOLUME 104.4 fl (80-96); MEAN PLT VOLUME 8.5 fl (7.5-11.1); PLATELET COUNT 249 K/MM3 (134-434); RBC 2.92 M/mm3 (4.00-5.60); RDW 16.1 % (11.9-15.9); WHITE BLOOD COUNT 10.6 K/mm3 (4.0-10.0)
[2017-07-23 23:53] LABS: VENOUS PH 7.32 (7.32-7.42)
[2017-07-23 23:56] LABS: ADD RBC MORPHOLOGY YES
--- NOTE | 2017-07-24 00:07 | PDOC ---
History of Present Illness - General Chief Complaint: Overdose Stated Complaint: FATIGUE History Source: Patient Exam Limitations: Clinical Condition - History of Present Illness Initial Comments: 07/24/17 00:04 The patient is a 21M with a PMH of IDDM (Type 1), substance abuse (including methamphetamines, opioid and heroin abuse, states he is currently on methadone) who was brought in by friends. History is limited 2/2 clinical condition. The patient states that he "has pneumonia". No other history could be provided. Past History - Past Medical History Allergies/Adverse Reactions: Allergies Allergy/AdvReac Type Severity Reaction Status Date / Time No Known Allergies Allergy Verified 07/23/17 23:11 Home Medications: Ambulatory Orders Insulin Aspart [Novolog] 100 unit SQ ASDIR 07/01/15 Insulin Glargine,Hum.rec.anlog [Lantus Solostar PEN (NF)] 30 units SQ HS Anemia: No Asthma: No Cancer: No Cardiac Disorders: No CVA: No COPD: No CHF: No Diabetes: Yes (Type 1 on Humolog and Lantus) GI Disorders: No Disorders: No HTN: No Hypercholesterolemia: No Kidney Stones: No Liver Disease: No Seizures: No - Surgical History Abdominal Surgery: No Appendectomy: No Cardiac Surgery: No Cholecystectomy: No Lung Surgery: No Neurologic Surgery: No Orthopedic Surgery: No - Reproductive History Testicular Surgery: No - Immunization History Immunization Up to Date: Yes - Suicide/Smoking/Psychosocial Hx Smoking History: Unknown if ever smoked Have you smoked in the past 12 months: Yes Number of Cigarettes Smoked Daily: 20 'Breaking Loose' booklet given: 07/03/17 Hx Alcohol Use: No Drug/Substance Use Hx: No Substance Use Type: None Hx Substance Use Treatment: Yes ([facility]) Review of Systems - Review of Systems Able to Perform ROS?: No (clinical condition) Is the patient limited Sinhala proficient: No *Physical Exam - Vital Signs Last Vital Signs Temp Pulse Resp BP Pulse Ox 99.3 F 141 H 44 H 71/42 89 L 07/24/17 00:02 07/23/17 23:11 07/23/17 23:11 07/23/17 23:11 07/23/17 23:11 ED Treatment Course - LABORATORY CBC & Chemistry Diagram: 07/23/17 23:45 07/23/17 23:45 - ADDITIONAL ORDERS Additional order review: Laboratory Results 07/23/17 07/23/17 07/23/17 23:45 23:45 23:45 WBC 10.6 H D RBC 2.92 L Hgb 9.9 L D Hct 30.4 L D MCV 104.4 H MCH 34.1 H MCHC 32.6 RDW 16.1 H Plt Count 249 D MPV 8.5 Neutrophils % No Result Required. Lymphocytes % No Result Required. VBG pH 7.32 POC VBG pCO2 31.0 L POC VBG pO2 23.0 L Mixed VBG HCO3 15.4 L Sodium Cancelled Potassium Cancelled Chloride Cancelled Carbon Dioxide Cancelled Anion Gap Cancelled BUN Cancelled Creatinine Cancelled Creat Clearance w eGFR Cancelled Random Glucose Cancelled Calcium Cancelled Total Bilirubin Cancelled AST Cancelled ALT Cancelled Alkaline Phosphatase Cancelled Creatine Kinase Cancelled Troponin I Cancelled Total Protein Cancelled Albumin Cancelled 07/23/17 23:45 RBC 2.92 L MCV 104.4 H MCHC 32.6 RDW 16.1 H MPV 8.5 Neutrophils % No Result Required. Lymphocytes % No Result Required. - Medications Given in the ED: ED Medications Discontinued Medications Generic Name Dose Route Start Last Admin Trade Name Freq PRN Reason Stop Dose Admin Sodium Chloride 1,000 mls @ 3,000 mls/hr 07/23/17 23:14 07/23/17 23:57 Normal Saline - IV 07/23/17 23:33 3,000 mls/hr ASDIR STA Administration Naloxone HCl 0.4 mg 07/23/17 23:15 07/23/17 23:15 Narcan - IVPUSH 07/23/17 23:16 0.4 mg NOW ONE Administration Sodium Chloride 2,000 ml 07/23/17 23:16 07/23/17 23:58 Normal Saline - IV 07/23/17 23:17 2,000 ml ONCE ONE Administration Medical Decision Making - Medical Decision Making 07/24/17 00:06 The patient is a 21M with a PMH of DM and substance abuse presents to the ER in DKA with labs significant for elevated BG, AG, acetone, hypoK, hypoMg, hypoPhos , acidosis, and lactate of 13.4. Will hydrate and replenish K and Mg. 07/24/17 02:26 Jovita Cazares NP accepts admission for ICU. Dr. Goodwin accepts admission. *DC/Admit/Observation/Transfer Diagnosis at time of Disposition: DKA, type 1 Qualifiers: Diabetes mellitus complication detail: without coma Qualified Code(s): E10.10 - Type 1 diabetes mellitus with ketoacidosis without coma Diabetic ketoacidosis Qualifiers: Diabetes mellitus type: type 1 Diabetes mellitus complication detail: without coma Qualified Code(s): E10.10 - Type 1 diabetes mellitus with ketoacidosis without coma - Discharge Dispostion Condition at time of disposition: Guarded Admit: Yes - Referrals - Patient Instructions - Post Discharge Activity
[2017-07-24] MEDS ORDERED: ONDANSETRON 4 MG/2 ML VIAL ONE (00:09)
[2017-07-24 00:10] LABS: MAGNESIUM 1.7 mg/dL (1.8-2.4)
[2017-07-24] MEDS ORDERED: VANCOMYCIN 1 GRAM (PRE-DOCKED) 1,000 MG/250 ML BAG IVPB ONE (00:10)
[2017-07-24] MEDS ORDERED: PIPERACILLIN/TAZOB 3.375 GM 3.375 GM/50 ML BAG IVPB ONE ×2 (00:10→00:12)
[2017-07-24] MEDS ORDERED: PANTOPRAZOLE SODIUM 40 MG VIAL ONE (00:10)
[2017-07-24 00:14] LABS: ANION GAP 29 (8-16); BILIRUBIN,TOTAL 1.8 mg/dL (0.2-1.0); BLOOD UREA NITROGEN 28 mg/dL (7-18); CALCIUM 8.8 mg/dL (8.5-10.1); CHLORIDE 94 mmol/L (98-107); CO2 14 mmol/L (21-32); CREATININE 2.2 mg/dL (0.7-1.3); SGPT/ALT 154 U/L (12-78); SODIUM 137 mmol/L (136-145); TOT PROT 5.4 g/dl (6.4-8.2)
[2017-07-24 00:17] LABS: GLUCOSE,RANDOM 587 mg/dL (74-106); N-TERMINAL BNP 7820.11 pg/ml (5-125); POTASSIUM 3.4 mmol/L (3.5-5.1); SGOT/AST 86 U/L (15-37)
[2017-07-24] MEDS ORDERED: SODIUM CHLORIDE 0.9% 1000 ML INFUS.BAG IV ONE (00:17)
[2017-07-24 00:18] LABS: ALK PHOS 240 U/L (45-117)
[2017-07-24] MEDS ORDERED: LACTATED RINGERS SOLUTION 1000 ML INFUS.BAG IV ONE (00:19)
[2017-07-24 00:20] LABS: INR 1.16 (0.82-1.09); PROTHROMBIN TIME (PATIENT) 13.1 SEC (9.98-11.88)
[2017-07-24 00:23] LABS: ACTIVATED PTT 25.3 SECONDS (26.9-34.4)
[2017-07-24] MEDS ORDERED: MAGNESIUM SULF 50% (8.12 MEQ/2 ML-1 GM VIAL) IVPB ONE ×3 (00:26→22:24)
[2017-07-24] MEDS ORDERED: POTASSIUM CHLORIDE 20 MEQ PREMIX IVPB 100 ML IVPB ONE ×2 (00:26→17:00)
[2017-07-24 01:36] LABS: URINE APPEARANCE CLOUDY; URINE BILIRUBIN NEGATIVE (NEGATIVE); URINE BLOOD 2+ (NEGATIVE); URINE COLOR DKYELLOW; URINE GLUCOSE (UA) 3+ (NEGATIVE); URINE KETONE 1+ (NEGATIVE); URINE LEUK ESTERASE NEGATIVE (NEGATIVE); URINE NITRITE NEGATIVE (NEGATIVE)
[2017-07-24 01:47] LABS: URINE PROTEIN 2+ (NEGATIVE)
[2017-07-24 01:50] LABS: URINE HYALINE CAST 25 /lpf; URINE MUCUS FEW
[2017-07-24 02:02] LABS: ANISOCYTOSIS 1+; MACROCYTOSIS 1+; PLATELET ESTIMATE NORMAL
[2017-07-24] MEDS: POTASSIUM CHLORIDE 20 MEQ PREMIX IVPB 100 ML IVPB SCH ×2 (02:08→02:49)
[2017-07-24] MEDS ORDERED: MAGNESIUM SULF 50% (8.12 MEQ/2 ML-1 GM VIAL) ONE (02:09)
[2017-07-24] MEDS ORDERED: KCL 10 MEQ IVPB 40 MEQ/400 ML INFUS.BAG IVPB ONE (02:11)
[2017-07-24] MEDS: INSULIN REGULAR 100 UNITS in SODIUM CHLORIDE 99 ML IVPB SCH ×2 (04:16→07:07)
[2017-07-24 05:51] LABS: HEMATOCRIT 26.8 % (35.4-49); HEMOGLOBIN 8.9 GM/dL (11.7-16.9); MCH 34.1 pg (25.7-33.7); MCHC 33.2 g/dl (32.0-35.9); MEAN CELL VOLUME 102.8 fl (80-96); MEAN PLT VOLUME 7.9 fl (7.5-11.1); PLATELET COUNT 196 K/MM3 (134-434); RDW 15.9 % (11.9-15.9); WHITE BLOOD COUNT 7.3 K/mm3 (4.0-10.0)
[2017-07-24 06:38] LABS: ANION GAP 18 (8-16); BLOOD UREA NITROGEN 24 mg/dL (7-18); CALCIUM 7.3 mg/dL (8.5-10.1); CHLORIDE 106 mmol/L (98-107); CO2 15 mmol/L (21-32); CREATININE 1.8 mg/dL (0.7-1.3); MAGNESIUM 1.4 mg/dL (1.8-2.4); POTASSIUM 3.3 mmol/L (3.5-5.1); SODIUM 139 mmol/L (136-145)
[2017-07-24 06:43] LABS: GLUCOSE,RANDOM 492 mg/dL (74-106)
[2017-07-24] MEDS ORDERED: MAGNESIUM 4GM/H20 - 4 GM/100 ML IVPB IVPB ONE (09:00)
--- NOTE | 2017-07-24 09:12 | CONSULT ---
Consultation: REQUESTING PROVIDER: ER CONSULT REQUEST: ICU Evaluation for DKA. HISTORY OF PRESENT ILLNESS: Mr Figueroa is a 21yo M with a PMHx of DM1, Active heroin user, Hep C who presented to the ER with altered mental status and generalized weakness. He remembers being dropped off in the ER. Discloses using heroin 12 hours ago. In the ER he was given Narcan x2 and IVF. Labs were notable for diabetic ketoacidosis. Patient admits to noncompliance with insulin. Initial AG was 29, patient was started on insulin ggt. Dose of Vanc/Zosyn was given. While in the ICU, the patient continues to complain of generalized weakness and diffuse body pain. Denies fevers, chills. Denies cough, CP, SOB. Pt also has edematous L arm with abscess at site of injection. REVIEW OF SYSTEMS: CONSTITUTIONAL: Absent: fever, chills, diaphoresis, loss of appetite, weight change Present: generalized weakness, malaise HEENT: Absent: rhinorrhea, nasal congestion, throat pain, throat swelling, difficulty swallowing, mouth swelling, ear pain, eye pain, visual changes CARDIOVASCULAR: Absent: chest pain, syncope, palpitations, irregular heart rate, lightheadedness , peripheral edema RESPIRATORY: Absent: cough, shortness of breath, dyspnea with exertion, orthopnea, wheezing, stridor, hemoptysis GASTROINTESTINAL: Absent: abdominal pain, abdominal distension, nausea, vomiting, diarrhea, constipation, melena, hematochezia GENITOURINARY: Absent: dysuria, frequency, urgency, hesitancy, hematuria, flank pain, genital pain MUSCULOSKELETAL: Absent: myalgia, arthralgia, joint swelling, back pain, neck pain SKIN: Absent: rash, itching, pallor HEMATOLOGIC/IMMUNOLOGIC: Absent: easy bleeding, easy bruising, lymphadenopathy, frequent infections ENDOCRINE: Absent: unexplained weight gain, unexplained weight loss, heat intolerance, cold intolerance NEUROLOGIC: Absent: headache, focal weakness or paresthesias, dizziness, unsteady gait, seizure, mental status changes, bladder or bowel incontinence PSYCHIATRIC: Absent: anxiety, depression, suicidal or homicidal ideation, hallucinations. PHYSICAL EXAMINATION Active Medications Generic Name Dose Route Start Last Admin Trade Name Freq PRN Reason Stop Dose Admin Insulin Human Regular 100 100 mls @ 5.21 mls/hr 07/24/17 02:15 02/13/18 07:07 units/ Sodium Chloride IVPB 0.1 units/kg/hr TITR ROBIN 5.21 mls/hr Protocol Administration 0.1 UNITS/KG/HR Magnesium Sulfate 4 gm in 100 mls @ 33.333 mls/hr 07/24/17 09:00 Magnesium 4gm/H20 - IVPB 07/24/17 11:59 ONCE ONE Potassium Chloride/Sodium Chloride 20 meq in 1,000 mls @ 150 mls/hr 07/24/17 09:00 Ns+20 Meq Kcl - IV ASDIR ROBIN Potassium Chloride 20 meq 07/24/17 09:15 Potassium Chloride 20 Meq Premix Ivpb - IVPB 07/24/17 10:16 Q60M ROBIN ASSESSMENT/PLAN: 21yo M with DM1, Active Heroin use, Hep C who presented in DKA # Endocrine: DKA -- Currently on Insulin ggt 0.1u/kg/hr, D51/2NS w/ KCl -- BMP Q4; Fingerstick Q1 # GI: Heroin Abuse, Transaminitis -- Detox consult placed to start on Methadone taper. Pt agreeable -- Transaminitis likely due to drug induced hepatic dysfunction, but will get Liver U/s to r/o liver abscess # ID: ?Abscess, Gram positive cocci bacteremia -- Bacteremia likely 2/2 direct injection. R/o Endocarditis. Echo pending. Continue Vanc/Zosyn -- For ?abscess, LUE ultrasound, case d/w Dr Beauchamp. # Renal: Acute Kidney Injury -- Could be secondary to dehydration vs CKD -- Continue IVF # CV: Elevated troponins -- Likely secondary to CRISTINA, continue to trend # FEN/PPx -- On IVF, NPO for now. -- SCDs, No GI ppx needed Dispo: We will continue to follow the patient. Thank you for this consultative opportunity. Arlette Baez MD - PGY1 ICU Resident Visit type - Emergency Visit Emergency Visit: No - New Patient This patient is new to me today: No - Critical Care Critical Care patient: No
[2017-07-24 09:59] VITALS: BMI 19.5
[2017-07-24] MEDS ORDERED: POTASSIUM CHLORIDE 20 MEQ PREMIX IVPB 100 ML IVPB SCH (10:00)
[2017-07-24] MEDS ORDERED: SODIUM CHLORIDE 0.9%/KCL 20 MEQ/1,000 ML INFUS.BAG IV SCH (10:00)
[2017-07-24] MEDS ORDERED: POTASSIUM CHLORIDE 20 MEQ in SODIUM CHLORIDE 1,000 ML IVPB SCH ×4 (10:04→12:15)
--- NOTE | 2017-07-24 10:26 | CONSULT ---
Consult Detox [facility] Reason for Current Admission/Consult: substance use Referred by:: samir monsalve - History History of Present Illness: 21M yo m w h/o IDU heorin 1 bundle a day since age 14, denies all other current illicit eduard g use and alcohol use, smokes 1PPD a PMHx hep c+, of IDDM (Type 1) , polysubstance use in past but currently not on a program who was brought in by friends w ANNIE RDZ and found to have infection left arm at injection site, admitted for antibiotics r/o endocarditis - History Source History Provided By: Patient, Medical Record, Caregiver Limitations to Obtaining History: No Limitations - Alcohol/Substance Use Hx Alcohol Use: No Hx Substance Use: Yes Hx Substance Use Treatment: Yes - Current Drug/Alcohol Use Heroin Route: Injection Frequency: Daily Amount used: bundle Age of first use: 14 Date of Last Use: 07/23/17 - Significant Medical Findings: 21 yo m admitted with dka, infection left arm at site of idu, heorin 10 bags daily in ICU r/o endocarditis, started on methadoen detox which he is toelrating although he is complaining of some withdrawl sx COWS - Scale Resting Pulse: 1= GA 81-100 Sweatin= Chills/Flushing Restless Observation: 1= Difficult to Sit Still Pupil Size: 1= Pupils >than Normal Bone or Joint Aches: 1= Mild Discomfort Runny Nose/ Eye Tearin= Nasal Congestion GI Upset > 30mins: 2= Nausea/Diarrhea Tremor Observation: 2= Slight Tremor Visible Yawning Observation: 1= 1-2x During Session Anxiety or Irritability: 2=Irritable/Anxious Goose Flesh Skin: 3=Piloerection COWS Score: 16 Assessment Plan - Diagnosis (1) Nicotine dependence Status: Acute Qualifiers: Nicotine product type: cigarettes Substance use status: uncomplicated Qualified Code(s): F17.210 - Nicotine dependence, cigarettes, uncomplicated (2) Opioid dependence with withdrawal Status: Acute - Plan Plan: chart, imaging, labs reviewed, pateitn examined and hisotry taken. case discussd with medical staff. recommend: 1. methadone detox as ordered, fludis, mvi, thiammine, nutritional supplementation, folic acid 2. k replacement 3. symptomatic relief of withdrawal w valium, zofran, flexeril, ambien, clonidien, neurontin, aboid NSAIDS and tylenol for pain at this time because of live r disease and evangelista. 4. infection and dka as per primary team. 5. when stable assess for rehab, or can start MAT with suboxone if he needs a longer hospitalization to eliminate cravings. 6. nicotine replacement therapy requested by patient Jaxon Manuel MD [phone] - Medication Detox Regimen/Protocol: Methadone
[2017-07-24 10:32] LABS: ANION GAP 15 (8-16); BLOOD UREA NITROGEN 24 mg/dL (7-18); CALCIUM 8.1 mg/dL (8.5-10.1); CHLORIDE 103 mmol/L (98-107); CO2 19 mmol/L (21-32); CREATININE 1.6 mg/dL (0.7-1.3); SODIUM 137 mmol/L (136-145)
[2017-07-24 10:35] LABS: POTASSIUM 3.8 mmol/L (3.5-5.1)
[2017-07-24 10:39] LABS: ALBUMIN 1.7 g/dl (3.4-5.0); BILIRUBIN,DIRECT 0.6 mg/dL (0.0-0.2); BILIRUBIN,TOTAL 1.3 mg/dL (0.2-1.0); GLUCOSE,RANDOM 308 mg/dL (74-106); TOT PROT 4.7 g/dl (6.4-8.2)
[2017-07-24] MEDS ORDERED: diazePAM 5 MG TABLET PO PRN (10:40)
[2017-07-24 10:41] LABS: PHOSPHOROUS 0.8 mg/dL (2.5-4.9)
[2017-07-24] MEDS ORDERED: NICOTINE POLACRILEX 2 MG GUM BUC PRN (10:44)
[2017-07-24] MEDS ORDERED: NICOTINE 14 MG/24 HOURS TOPICAL PATCH TD SCH (10:45)
[2017-07-24 10:51] LABS: MAGNESIUM 1.7 mg/dL (1.8-2.4)
[2017-07-24] MEDS ORDERED: METHADONE HCL 10 MG TABLET (FOR DETOX USE ONLY) PO ONE ×2 (11:30→23:00)
[2017-07-24] MEDS ORDERED: METHADONE HCL 10 MG TABLET ONE (12:15)
[2017-07-24] MEDS: KCL 10 MEQ IVPB 10 MEQ/100 ML INFUS.BAG IVPB SCH ×3 (12:23→13:32)
[2017-07-24] MEDS ORDERED: morphine SULFATE 4 MG/ML VIAL ONE (12:25)
[2017-07-24] MEDS ORDERED: morphine SULFATE 4 MG/ML VIAL IVPUSH ONE (12:30)
--- NOTE | 2017-07-24 13:03 | PN ---
Teaching Attending Note Name of Resident: Arlette aBez ATTENDING PHYSICIAN STATEMENT I saw and evaluated the patient. I reviewed the resident's note and discussed the case with the resident. I agree with the resident's findings and plan as documented. SUBJECTIVE: Pt seen and examined in the ICU. Briefly, 21yo male with h/o IDDM, polysubstance abuse, IVDA, Hep C was admitted with altered mental status and shortness of breath. Found to be in diabetic ketoacidosis, febrile and with gram positive bacteremia. Has not been taking his insulin. Last IVDU yesterday, denies sharing needles but has told others he does. Cleans needles with bleach. OBJECTIVE: Last Vital Signs Temp Pulse Resp BP Pulse Ox 100.6 F H 119 H 18 128/76 100 07/24/17 10:24 07/24/17 11:55 07/24/17 11:55 07/24/17 11:55 07/24/17 05:59 Intake & Output 07/21/17 07/22/17 07/23/17 07/24/17 23:59 23:59 23:59 23:59 Weight 52.163 kg 59.879 kg Gen: lethargic, arousable Heart: tachycardic, regular Lung: decreased breath sounds at the bases Abd: soft, nontender Ext: BLE upper extremity areas of erythema, edema, purulent drainage from LUE CBC, BMP 07/24/17 05:34 07/24/17 09:30 Active Medications Diazepam (Valium -) 10 mg PO Q4H PRN PRN Reason: WITHDRAWAL(CONT SUBST) Stop: 07/27/17 10:39 Heparin Sodium (Porcine) (Heparin -) 5,000 unit SQ TID ROBIN Insulin Human Regular 100 (units/ Sodium Chloride) 100 mls @ 5.21 mls/hr IVPB TITR ROBIN; 0.1 UNITS/KG/HR PRN Reason: Protocol Last Admin: 07/24/17 07:07 Dose: 0.1 units/kg/hr, 5.21 mls/hr Potassium Chloride (Potassium Chloride 10 Meq Premix Ivpb -) 10 meq in 100 mls @ 100 mls/hr IVPB Q60M ROBIN Stop: 07/24/17 14:59 Last Admin: 07/24/17 12:32 Dose: Not Given Vancomycin HCl 1,000 mg/ (Dextrose) 250 mls @ 166.667 mls/hr IVPB ONCE ONE PRN Reason: Protocol Stop: 07/24/17 15:29 Potassium Chloride 20 meq/ (Sodium Chloride) 1,010 mls @ 200 mls/hr IVPB Q5H ROBIN Methadone HCl (Dolophine -) 10 mg PO ONCE@2300 ONE Stop: 07/24/17 23:01 Methadone HCl (Dolophine -) 15 mg PO ONCE ONE Stop: 07/26/17 23:59 Methadone HCl (Dolophine -) 5 mg PO ONCE@0600 ONE Stop: 07/29/17 23:59 Methadone HCl (Dolophine -) 15 mg PO ONCE ONE Stop: 07/27/17 23:59 Methadone HCl (Dolophine -) 20 mg PO ONCE ONE Stop: 07/25/17 10:01 Methadone HCl (Dolophine -) 10 mg PO ONCE ONE Stop: 07/28/17 10:01 Nicotine (Nicoderm Patch -) 14 mg TD DAILY ROBIN Nicotine Polacrilex (Nicorette Gum -) 2 mg BUC Q2H PRN PRN Reason: NICOTINE REPLACEMENT RX Potassium Chloride (K-Dur -) 20 meq PO BID [facility] Multivit/Folic Acid/Iron ( Vitamins (Sjr) -) 1 tab PO DAILY ROBIN Thiamine HCl (Vitamin B1 -) 100 mg PO HS [facility] ASSESSMENT AND PLAN: Diabetic Ketoacidosis Staph Bacteremia Severe Sepsis Acute Kidney Injury Lactic Acidosis +Troponins likely Demand Ischemia Elevated LFTs Metabolic Derangements IVDU/Polysubstance Abuse - aggressive IVF resuscitation - monitor BGM q1h, BMP q4h - insulin gtt if anion gap open - start long acting insulin when anion gap closed - if BGM <250 while on insulin gtt, add D5 to IVF - if K <4.5 while on insulin gtt, add KCl to IVF - replete lytes - IV antibiotics including vanco, monitor levels - f/u cultures - echocardiogram - abdominal ultrasound for elevated LFTs - monitor urine output, creatinine - trend lactate, cardiac enzymes, LFTs until downtrending - addiction medicine eval for detox - continue ICU monitoring critical care time spent in reviewing chart, evaluating patient and formulating plan 35min
--- NOTE | 2017-07-24 13:16 | PROC ---
<Arlette Baez - Last Filed: 07/24/17 13:15> Central Line Insertion Indication: Poor Venous Access, Sepsis Risks and Benefits Explained: Yes Consent on Chart: Yes Central Line: Triple Lumen Catheter Anesthesia: 2% Lidocaine Sterile Technique: Yes Ultrasound Guided Assistance: Yes Position: Right Internal Jugular Post Insertion: Yes: Bilateral Breath Sounds, Bilateral Chest Expansion, Chest X-Ray Ordered Sterile Dressing Applied: Yes <Win Belle MD - Last Filed: 07/24/17 14:17> Procedure Note Procedure: I supervised and was present during the entire procedure. Win Belle MD
[2017-07-24] MEDS ORDERED: DEXTROSE 5%-0.45% SALINE 1,000 ML IV SCH (13:30)
[2017-07-24] MEDS ORDERED: VANCOMYCIN 1,000 MG in DEXTROSE 5%-WATER - 250 ML IVPB ONE (14:00)
[2017-07-24] MEDS ORDERED: POTASSIUM PHOSPHATE 40 MM in SODIUM CHLORIDE 500 ML IVPB ONE (14:45)
[2017-07-24] MEDS: HEPARIN NA (PORCINE) 5,000 UNITS/ML 1ML VIAL SQ SCH ×2 (14:46→22:48)
--- NOTE | 2017-07-24 14:57 | CON.ID ---
Consult Consult Specialty:: infectious disease Referred by:: icu Reason for Consultation:: bacteremia - History of Present Illness Chief Complaint: left arm pain History of Present Illness: 21 year old man with IDDM admitted with weakness, myalgia, numbness LUE, fevers for one week arm has been worsening for last week no insulin for last one week hep c positive denies HIV no history of prior endocarditis injects heroin daily polysubstance use cocaine, marijuana reuses needles, washes in bleach - History Source History Provided By: Patient Limitations to Obtaining History: Clinical Condition - Past Medical History Infectious Disease: Yes: Other (HEP C) Endocrine: Yes: Diabetes Mellitus Additional Medical History: polysubstance use - Alcohol/Substance Use Hx Alcohol Use: No History of Substance Use: reports: Cocaine, Heroin, Marijuana - Smoking History Smoking history: Unknown if ever smoked Have you smoked in the past 12 months: Yes Aproximately how many cigarettes per day: 20 - Social History Usual Living Arrangement: Other ADL: Independent Place of : [facility] Home Medications - Allergies Allergies/Adverse Reactions: Allergies Allergy/AdvReac Type Severity Reaction Status Date / Time No Known Allergies Allergy Verified 07/23/17 23:11 - Home Medications Home Medications: Ambulatory Orders Insulin Aspart [Novolog] 100 unit SQ ASDIR 07/01/15 Insulin Glargine,Hum.rec.anlog [Lantus Solostar PEN (NF)] 30 units SQ HS Family Disease History - Family Disease History Family Disease History: Other: Father (healthy), Mother (healthy), Brother (IDDM ) Review of Systems - Review of Systems Constitutional: reports: Chills, Fever, Night Sweats, Unintentional Wgt. Loss, Weakness Eyes: reports: No Symptoms HENT: reports: No Symptoms Neck: reports: No Symptoms Cardiovascular: reports: No Symptoms. denies: Chest Pain Respiratory: reports: No Symptoms Gastrointestinal: reports: No Symptoms Genitourinary: reports: No Symptoms Musculoskeletal: reports: Muscle Pain (throughout) Integumentary: reports: No Symptoms Physical Exam Vital Signs: Vital Signs Temperature 100 F H 07/24/17 13:49 Pulse Rate 118 H 07/24/17 13:49 Respiratory Rate 36 H 07/24/17 13:49 Blood Pressure 123/76 07/24/17 13:49 O2 Sat by Pulse Oximetry (%) 100 07/24/17 09:00 Constitutional: Yes: Poor Hygeine, Thin Eyes: Yes: Conjunctiva Clear HENT: Yes: Atraumatic, Normocephalic, Other (dry oral mucous membranes). No: Thrush Neck: Yes: Trachea Midline Cardiovascular: Yes: Tachycardia. No: Murmur Respiratory: Yes: Regular, CTA Bilaterally Gastrointestinal: Yes: Normal Bowel Sounds, Other (firm). No: Tenderness, Epigastrium, Tenderness, Rebound ...Rectal Exam: Yes: Deferred Renal/: Yes: WNL Extremities: Yes: WNL, Other (left forearm, indurated, with puncture lon with purulent drainage, +erythema and swelling, no fluctuance, good radial pulse, FROM of his fingers) Edema: No Peripheral Pulses WNL: Yes Psychiatric: Yes: Alert, Oriented Labs: CBC, BMP 07/24/17 05:34 07/24/17 09:30 Microbiology 07/23/17 23:35 Blood - Peripheral Venous Blood Culture - Preliminary Pending Organism 07/23/17 23:35 Blood - Peripheral Venous Blood Culture - Preliminary Pending Organism crcl 60.8 Imaging - Results Chest X-ray: Report Reviewed Problem List - Problems (1) Diabetic ketoacidosis Code(s): E13.10 - OTH DIABETES MELLITUS WITH KETOACIDOSIS WITHOUT COMA Qualifiers: Diabetes mellitus type: type 1 Diabetes mellitus complication detail: without coma Qualified Code(s): E10.10 - Type 1 diabetes mellitus with ketoacidosis without coma Assessment/Plan gram positive bacteremia history of injection drug use DKA hep c left forearm soft tissue infection r/o endocarditis esr/crp imaging of forearm surgery to see manoj red hiv testing detox will follow with you
[2017-07-24] MEDS ORDERED: PIPERACILLIN/TAZOB 3.375 GM/50 ML PRE-DOCKED IVPB SCH (15:00)
--- NOTE | 2017-07-24 15:18 | CONSULT ---
Consult - text type - Consultation Consultation Note: Hand Surgery Called by resident regarding possible extremity abscess at the site of injection in a know IVDA that is being treated with DKA. Requested non- invasive imaging of the area - ultrasound vs ctscan. Medical stabilization and empiric IV antibiotics. Will evaluate and full consult to follow.
--- NOTE | 2017-07-24 15:23 | PN ---
Problem List - Problems (1) Abscess Code(s): L02.91 - CUTANEOUS ABSCESS, UNSPECIFIED (2) Sepsis Code(s): A41.9 - SEPSIS, UNSPECIFIED ORGANISM (3) Gram-positive bacteremia Code(s): R78.81 - BACTEREMIA (4) Diabetic ketoacidosis Code(s): E13.10 - OTH DIABETES MELLITUS WITH KETOACIDOSIS WITHOUT COMA Qualifiers: Diabetes mellitus type: type 1 Diabetes mellitus complication detail: without coma Qualified Code(s): E10.10 - Type 1 diabetes mellitus with ketoacidosis without coma
[2017-07-24] MEDS: PIPERACILLIN/TAZOB 3.375 GM 3.375 GM in DEXTROSE 5%-WATER - 50 ML IVPB SCH ×2 (15:35→18:28)
[2017-07-24 16:25] LABS: ANION GAP 10 (8-16); BLOOD UREA NITROGEN 18 mg/dL (7-18); CALCIUM 7.4 mg/dL (8.5-10.1); CHLORIDE 105 mmol/L (98-107); CO2 25 mmol/L (21-32); CREATININE 1.1 mg/dL (0.7-1.3); GLUCOSE,RANDOM 81 mg/dL (74-106); MAGNESIUM 2.3 mg/dL (1.8-2.4); SODIUM 140 mmol/L (136-145)
[2017-07-24 16:35] LABS: POTASSIUM 2.8 mmol/L (3.5-5.1)
[2017-07-24 16:36] LABS: PHOSPHOROUS 0.8 mg/dL (2.5-4.9)
[2017-07-24] MEDS ORDERED: DEXTROSE 5%-0.45% SALINE 980 ML with POTASSIUM CHLORIDE 40 MEQ IVPB SCH (16:41)
--- NOTE | 2017-07-24 16:41 | EKG ---
Test Reason : Blood Pressure : / mmHG Vent. Rate : 121 BPM Atrial Rate : 121 BPM P-R Int : 092 ms QRS Dur : 082 ms QT Int : 306 ms P-R-T Axes : 076 074 -74 degrees QTc Int : 434 ms SINUS TACHYCARDIA WITH SHORT MN T WAVE ABNORMALITY, CONSIDER INFERIOR ISCHEMIA ABNORMAL ECG WHEN COMPARED WITH ECG OF 02-JUL-2017 19:50, MN INTERVAL HAS DECREASED VENT. RATE HAS INCREASED BY 41 BPM T WAVE INVERSION NOW EVIDENT IN INFERIOR LEADS NONSPECIFIC T WAVE ABNORMALITY NOW EVIDENT IN LATERAL LEADS Confirmed by MD Shine, Josh ([id number]) on 07/24/2017 4:41:10 PM Referred By: Confirmed By:Josh Riojas MD
[2017-07-24] MEDS ORDERED: INSULIN DETEMIR 100 UNITS/ML MDV SQ ONE (17:00)
[2017-07-24] MEDS ORDERED: ONDANSETRON *ODT* 4 MG TABLET SL PRN (18:04)
[2017-07-24] MEDS ORDERED: [UNRECOGNIZED DRUG - OTHER] IVPB SCH (18:45)
[2017-07-24] MEDS ORDERED: DEXTROSE IVPB SCH (18:45)
[2017-07-24] MEDS ORDERED: POTASSIUM CHLORIDE IVPB SCH (18:45)
[2017-07-24] MEDS ORDERED: INSULIN SLIDING SCALE (NOVOLOG) 1 VIAL SQ SCH (18:52)
[2017-07-24] MEDS ORDERED: INSULIN (NOVOLOG) ASPART 100 UNITS/ML 10ML VIAL ONE (18:53)
--- NOTE | 2017-07-24 19:27 | HP ---
Admitting History and Physical - Admission History of Present Illness: Pt is a 21yo M with a PMHx of DM1, Active heroin user, Hep C who presented to the ER with altered mental status and generalized weakness. He remembers being dropped off in the ER. Discloses using heroin 12 hours ago. In the ER he was given Narcan x2 and IVF. Labs were notable for diabetic ketoacidosis. Patient admits to noncompliance with insulin. Initial AG was 29, patient was started on insulin ggt. Dose of Vanc/Zosyn was given. While in the ICU, the patient continues to complain of generalized weakness and diffuse body pain. Denies fevers, chills. Denies cough, CP, SOB. Pt also has edematous L arm with abscess at site of injection. - Past Medical History Infectious Disease: Yes: Other (HEP C) Psych: Yes: Addictions Endocrine: Yes: Diabetes Mellitus - Smoking History Smoking history: Unknown if ever smoked Have you smoked in the past 12 months: Yes Aproximately how many cigarettes per day: 20 - Alcohol/Substance Use Hx Alcohol Use: No History of Substance Use: reports: Cocaine, Heroin, Marijuana - Social History ADL: Independent Home Medications - Allergies Allergies/Adverse Reactions: Allergies Allergy/AdvReac Type Severity Reaction Status Date / Time No Known Allergies Allergy Verified 07/23/17 23:11 - Home Medications Home Medications: Ambulatory Orders Insulin Aspart [Novolog] 100 unit SQ ASDIR 07/01/15 Insulin Glargine,Hum.rec.anlog [Lantus Solostar PEN (NF)] 30 units SQ HS Family Disease History - Family Disease History Family History: Unremarkable Family Disease History: Other: Father (healthy), Mother (healthy), Brother (IDDM ) Review of Systems - Review of Systems Constitutional: reports: Loss of Appetite, Malaise, Weakness HENT: reports: No Symptoms Neck: reports: No Symptoms Cardiovascular: reports: No Symptoms Respiratory: reports: No Symptoms Gastrointestinal: reports: No Symptoms Physical Examination Vital Signs: Vital Signs Temperature 100 F H 07/24/17 14:00 Pulse Rate 165 H 07/24/17 18:34 Respiratory Rate 28 H 07/24/17 18:34 Blood Pressure 108/63 07/24/17 18:34 O2 Sat by Pulse Oximetry (%) 100 07/24/17 09:00 Eyes: Yes: WNL HENT: Yes: WNL Neck: Yes: WNL, Supple Cardiovascular: Yes: WNL, Regular Rate and Rhythm Respiratory: Yes: WNL, Regular, CTA Bilaterally Gastrointestinal: Yes: WNL, Normal Bowel Sounds Extremities: Yes: Other ((+) erythema LUE ?induration) Labs: CBC, BMP 07/24/17 05:34 07/24/17 15:00 Problem List - Problems (1) Diabetic ketoacidosis Assessment/Plan: Cont insulin drip Cont IVF Endo consult Monitor labs Code(s): E13.10 - OTH DIABETES MELLITUS WITH KETOACIDOSIS WITHOUT COMA Qualifiers: Diabetes mellitus type: type 1 Diabetes mellitus complication detail: without coma Qualified Code(s): E10.10 - Type 1 diabetes mellitus with ketoacidosis without coma (2) Sepsis Assessment/Plan: Cont IV antibxs Monitor cultures As per ID/hand surgery Code(s): A41.9 - SEPSIS, UNSPECIFIED ORGANISM (3) Opioid dependence with withdrawal Assessment/Plan: Cont methadone Code(s): F11.23 - OPIOID DEPENDENCE WITH WITHDRAWAL
[2017-07-24] MEDS ORDERED: POTASSIUM CHLORIDE 40 MEQ in SODIUM CHLORIDE 0.45% 1,000 ML IVPB SCH (20:45)
--- NOTE | 2017-07-24 21:39 | CONSULT ---
Consult Consult Specialty:: Hand and Microsurgery Referred by:: Arlette Baez Reason for Consultation:: left arm abscess - History of Present Illness Chief Complaint: left arm pain and swelling History of Present Illness: 21yo LHD male PMH type 1 DM, current IV heroin user, Hepatitis C presented with altered mental status and generalized weakness. He remembers being dropped off in the ER. He reports using IV heroin 12 hours ago. In the ER he was given Narcan x2 and IVF. Labs were notable for diabetic ketoacidosis. Temps >100F and HR 120s. Patient admits to noncompliance with insulin. Patient was started on insulin. Dose of Vanc/Zosyn was given. While in the ICU, the patient was resusitated and we were consulted regarding significant redness and swelling of the left forearm centered on the antecubital fossa at the site of admitted injection. He is unable to provide additional detail regarding the time course for the pain and swelling. He was not certain about the cleanliness of the needles he used. He was falling asleep as I spoke to him and dropping his nauruan toast on his chest before it reached his mouth. - History Source History Provided By: Patient, Medical Record Limitations to Obtaining History: Clinical Condition - Past Medical History Infectious Disease: Yes: Other (HEP C) Endocrine: Yes: Diabetes Mellitus Additional Medical History: polysubstance use - Alcohol/Substance Use Hx Alcohol Use: No History of Substance Use: reports: Cocaine, Heroin, Marijuana - Smoking History Smoking history: Unknown if ever smoked Have you smoked in the past 12 months: Yes Aproximately how many cigarettes per day: 20 - Social History Usual Living Arrangement: Other ADL: Independent Home Medications - Allergies Allergies/Adverse Reactions: Allergies Allergy/AdvReac Type Severity Reaction Status Date / Time No Known Allergies Allergy Verified 07/23/17 23:11 - Home Medications Home Medications: Ambulatory Orders Insulin Aspart [Novolog] 100 unit SQ ASDIR 07/01/15 Insulin Glargine,Hum.rec.anlog [Lantus Solostar PEN (NF)] 30 units SQ HS Family Disease History - Family Disease History Family Disease History: Other: Father (healthy), Mother (healthy), Brother (IDDM ) Review of Systems - Review of Systems Constitutional: reports: Fever. denies: Chills, Diaphoresis Eyes: denies: Blind Spots, Recent Change in Vision HENT: denies: Difficult Swallowing, Throat Pain Cardiovascular: denies: Chest Pain, Palpitations Respiratory: denies: Cough, SOB Gastrointestinal: denies: Bloating, Constipation Genitourinary: denies: Discharge, Dysuria Musculoskeletal: reports: Extremity Pain. denies: Back Pain Integumentary: denies: Lesions, Rash Neurological: denies: Change in LOC, Change in Speech Endocrine: denies: Excessive Sweating Hematology/Lymphatic: denies: Easily Bruised, Excessive Bleeding Psychiatric: denies: Anxiety, Depression Physical Exam Vital Signs: Vital Signs Temperature 100 F H 07/24/17 14:00 Pulse Rate 165 H 07/24/17 18:34 Respiratory Rate 28 H 07/24/17 18:34 Blood Pressure 108/63 07/24/17 18:34 O2 Sat by Pulse Oximetry (%) 100 07/24/17 09:00 Vital Signs Period Temp Pulse Resp BP Sys/Nolan Pulse Ox Last 24 Hr 99 F-100.6 F 104-165 18-44 71-135/42-91 89-100 Constitutional: Yes: No Distress, Calm, Poor Hygeine, Thin HENT: Yes: Atraumatic, Normocephalic Neck: Yes: Supple, Trachea Midline Cardiovascular: Yes: WNL, Tachycardia (sinus at 125bpm), S1, S2 Respiratory: Yes: Regular, CTA Bilaterally Gastrointestinal: Yes: Normal Bowel Sounds, Soft. No: Tenderness ...Rectal Exam: Yes: Deferred Renal/: No: CVA Tenderness - Left, CVA Tenderness - Right Extremities: Yes: Erythema (left upper extremity). No: Cool, Cyanosis Edema: LUE: 3+, RUE: Trace, LLE: Trace, RLE: Trace Peripheral Pulses WNL: Yes Integumentary: Yes: Erythema (left upper extremity volar antecubital). No: Jaundice Wound/Incision: Yes: Draining (purleunt drainage from left distal antecubital puncture site), Reddened (4cm proximal to elbow to the wrist) Neurological: Yes: Oriented, Lethargy (falling asleep as I am speaking to him and dropping his nauruan toast on his chest) Psychiatric: Yes: Oriented Labs: CBC,CMP WBC 8.4 K/mm3 (4.0-10.0) 07/25/17 05:10 RBC 2.31 M/mm3 (4.00-5.60) L 07/25/17 05:10 Hgb 7.7 GM/dL (11.7-16.9) L D 07/25/17 05:10 Hct 22.9 % (35.4-49) L 07/25/17 05:10 MCV 99.0 fl (80-96) H 07/25/17 05:10 MCH 33.5 pg (25.7-33.7) 07/25/17 05:10 MCHC 33.8 g/dl (32.0-35.9) 07/25/17 05:10 RDW 15.9 % (11.9-15.9) 07/25/17 05:10 Plt Count 118 K/MM3 (134-434) L D 07/25/17 05:10 MPV 8.8 fl (7.5-11.1) D 07/25/17 05:10 Neutrophils % 86.8 % (42.8-82.8) H D 07/25/17 05:10 Neutrophils % (Manual) 81.6 % (42.8-82.8) 07/23/17 23:45 Band Neutrophils % 4.1 % 07/23/17 23:45 Lymphocytes % 9.4 % (8-40) D 07/25/17 05:10 Lymphocytes % (Manual) 1.0 % (8-40) L D 07/23/17 23:45 Monocytes % 3.1 % (3.8-10.2) L 07/25/17 05:10 Monocytes % (Manual) 10 % (3.8-10.2) 07/23/17 23:45 Eosinophils % 0.3 % (0-4.5) 07/25/17 05:10 Eosinophils % (Manual) 0.0 % (0-4.5) 07/23/17 23:45 Basophils % 0.4 % (0-2.0) 07/25/17 05:10 Basophils % (Manual) 0.0 % (0-2.0) 07/23/17 23:45 Myelocytes % (Man) 1 % (0-2) 07/23/17 23:45 Promyelocytes % (Man) 0 % (0-2) 07/23/17 23:45 Nucleated RBC % 0 % (0-0) 07/23/17 23:45 Metamyelocytes 2 % (0-2) D 07/23/17 23:45 Platelet Estimate Normal 07/23/17 23:45 Poikilocytosis 0 07/23/17 23:45 Anisocytosis 1+ 07/23/17 23:45 Macrocytosis 1+ 07/23/17 23:45 ESR 111 mm/hr (0-10) H 07/25/17 05:10 Sodium 138 mmol/L (136-145) 07/25/17 01:00 Potassium 3.4 mmol/L (3.5-5.1) L 07/25/17 01:00 Chloride 103 mmol/L (98-107) 07/25/17 01:00 Carbon Dioxide 27 mmol/L (21-32) 07/25/17 01:00 Anion Gap 8 (8-16) 07/25/17 01:00 BUN 15 mg/dL (7-18) 07/25/17 01:00 Creatinine 0.9 mg/dL (0.7-1.3) 07/25/17 01:00 Creat Clearance w eGFR 37.28 (>60) 07/23/17 23:45 POC Glucometer 202.65274 UNITS (80-120) 07/25/17 06:22 Random Glucose 32 mg/dL (74-106) L* D 07/25/17 01:00 Lactic Acid 5.2 mmol/L (0.0-2.0) H* 07/24/17 20:00 Calcium 7.3 mg/dL (8.5-10.1) L 07/25/17 01:00 Phosphorus 2.7 mg/dL (2.5-4.9) D 07/24/17 20:30 Magnesium 1.7 mg/dL (1.8-2.4) L D 07/24/17 20:30 Total Bilirubin 1.3 mg/dL (0.2-1.0) H D 07/24/17 09:30 Direct Bilirubin 0.6 mg/dL (0.0-0.2) H 07/24/17 09:30 AST 111 U/L (15-37) H D 07/24/17 09:30 ALT 131 U/L (12-78) H 07/24/17 09:30 Alkaline Phosphatase 193 U/L (45-117) H 07/24/17 09:30 Creatine Kinase 304 IU/L (39-308) 07/23/17 23:45 Creatine Kinase Index 1.5 % (0.0-5.0) 07/23/17 23:45 CK-MB (CK-2) 4.570 ng/mL (0.5-3.6) H 07/23/17 23:45 Troponin I 0.13 ng/ml (0.00-0.05) H D 07/23/17 23:45 C-Reactive Protein 29.5 MG/DL (0.00-0.3) H 07/25/17 05:10 B-Natriuretic Peptide 7820.11 pg/ml (5-125) H 07/23/17 23:45 Total Protein 4.7 g/dl (6.4-8.2) L 07/24/17 09:30 Albumin 1.7 g/dl (3.4-5.0) L 07/24/17 09:30 TSH 1.76 uIU/ml (0.358-3.74) 07/23/17 23:45 Imaging - Results Ultrasound: Report Reviewed (edema and thrombophlebitis left forearm no clear fluid collection), Image Reviewed Problem List - Problems (1) Thrombophlebitis arm Assessment/Plan: 21 yo LHD male with DM type 1 in DKA with aggressive left forearm cellulitis, thrombophlebitis, and draining abscess at the site of infecting IV drugs. Admitted 2 days ago and was being stabilized in the ICU. Last meal at 10am EST. Patient is oriented but somulent (intoxicated vs. septic) he is also unable physically to sign consent because his left arm significantly affected by the infectious process. ICU Care NPO and IVF hydration broad spectrum IV antibiotics trend labs glycemic control correct electrolytes left arm elevation above heart level He needs and Incision and drainage of left forearm injection site. I discussed with patient risks, benefits and alternatives of incision and drainge of left forearm abscess including but not limited to bleeding, worsening infection, compartment syndrome, injury to adjacent structures, loss of function dominant hand, ischemia requiring amputation, need for further procedures, ; alternatives include antibiotics, delayed or no surgery - risks of this include failure of nonoperative therapy, sepsis, recurrence, . Patient desires to proceed with operation - will take to OR for above. Informed consent which was acknowledged by patient and witnessed by RN but could not be signed was placed on the chart. Advised by Nursing supervior and Hayley Ann risk management/ quality improvement to call the family for concent. Celest[place] care proxy form indicated that he would like Rosetta Leta Marquez ([email or web address]) to make his health care decisions. Surgery is on the add-on schedule for 6pm EST. I will await further advice from Risk management. Code(s): I80.8 - PHLEBITIS AND THROMBOPHLEBITIS OF OTHER SITES (2) Abscess of forearm Code(s): L02.419 - CUTANEOUS ABSCESS OF LIMB, UNSPECIFIED (3) Opioid dependence with withdrawal Code(s): F11.23 - OPIOID DEPENDENCE WITH WITHDRAWAL (4) Diabetes Code(s): E11.9 - TYPE 2 DIABETES MELLITUS WITHOUT COMPLICATIONS Qualifiers: Diabetes mellitus type: type 1 Diabetes mellitus complication status: without complication Qualified Code(s): E10.9 - Type 1 diabetes mellitus without complications
[2017-07-24 21:45] LABS: ANION GAP 11 (8-16); BLOOD UREA NITROGEN 17 mg/dL (7-18); CALCIUM 7.1 mg/dL (8.5-10.1); CHLORIDE 104 mmol/L (98-107); CO2 23 mmol/L (21-32); CREATININE 1.1 mg/dL (0.7-1.3); GLUCOSE,RANDOM 175 mg/dL (74-106); MAGNESIUM 1.7 mg/dL (1.8-2.4); PHOSPHOROUS 2.7 mg/dL (2.5-4.9); POTASSIUM 3.2 mmol/L (3.5-5.1); SODIUM 138 mmol/L (136-145)
[2017-07-24] MEDS ORDERED: POTASSIUM CHLORIDE TABS 20 MEQ TABLET.ER (FP) PO SCH (22:00)
[2017-07-24] MEDS ORDERED: MAGNESIUM SULFATE IN WATER 2 GM/50 ML IVPB IVPB ONE (22:30)
[2017-07-24] MEDS: cloNIDine HCL 0.1 MG TABLET PO SCH (22:41)
[2017-07-24] MEDS: CYCLOBENZAPRINE HCL 10 MG TABLET (FP) PO SCH (22:41)
[2017-07-24] MEDS: THIAMINE HCL 100 MG TABLET (FP) PO SCH (22:41)
[2017-07-24] MEDS: GABAPENTIN 100 MG CAPSULE (FP) PO SCH (22:41)
[2017-07-24] MEDS: POTASSIUM CHLORIDE TABS 20 MEQ TABLET.ER (FP) PO SCH (22:41)
[2017-07-24] MEDS: ZOLPIDEM TARTRATE 5 MG TABLET PO PRN (22:48)
[2017-07-24 22:50] LABS: URINE AMPHETAMINES NEGATIVE ng/ml (CUTOFF=500)
[2017-07-24 22:51] LABS: METHADONE, UR NEGATIVE ng/ml (CUTOFF=300); PHENCYCLIDINE,URINE NEGATIVE ng/ml (CUTOFF=25); URINE BARBITURATES NEGATIVE ng/ml (CUTOFF=200); URINE BENZODIAZEPINES NEGATIVE ng/ml (CUTOFF=200)
[2017-07-24 22:55] LABS: COCAINE, UR POSITIVE ng/ml (CUTOFF=300); OPIATES, URI POSITIVE ng/ml (CUTOFF=300)
[2017-07-24] MEDS ORDERED: METHADONE HCL 10 MG TABLET PO ONE (23:15)
--- NOTE | 2017-07-24 23:22 | CONSULT ---
Consult Consult Specialty:: endocrine Referred by:: dr.rocco solis Reason for Consultation:: dka - History of Present Illness Chief Complaint: lethargic weak History of Present Illness: 21M with a PMH of DM and substance abuse presents to the ER in DKA with labs significant for elevated BG, AG, acetone, hypoK, hypoMg, hypoPhos, acidosis, and lactate of 13.4. admitted to icu on insulin drip and ivfluids for hydration and correction of electrolyte imbalance.he is poorly compliant with diabetes and has had elevated sugars most of the time he is lethargic and unable to provide ros - Past Medical History Infectious Disease: Yes: Other (HEP C) Endocrine: Yes: Diabetes Mellitus Additional Medical History: polysubstance use - Alcohol/Substance Use Hx Alcohol Use: No History of Substance Use: reports: Cocaine, Heroin, Marijuana - Smoking History Smoking history: Unknown if ever smoked Have you smoked in the past 12 months: Yes Aproximately how many cigarettes per day: 20 - Social History Usual Living Arrangement: Other ADL: Independent Home Medications - Allergies Allergies/Adverse Reactions: Allergies Allergy/AdvReac Type Severity Reaction Status Date / Time No Known Allergies Allergy Verified 07/23/17 23:11 - Home Medications Home Medications: Ambulatory Orders Insulin Aspart [Novolog] 100 unit SQ ASDIR 07/01/15 Insulin Glargine,Hum.rec.anlog [Lantus Solostar PEN (NF)] 30 units SQ HS Family Disease History - Family Disease History Family Disease History: Other: Father (healthy), Mother (healthy), Brother (IDDM ) Physical Exam Vital Signs: Vital Signs Temperature 100 F H 07/24/17 14:00 Pulse Rate 165 H 07/24/17 18:34 Respiratory Rate 35 H 07/24/17 21:00 Blood Pressure 108/63 07/24/17 18:34 O2 Sat by Pulse Oximetry (%) 100 07/24/17 21:00 Constitutional: Yes: Poor Hygeine, Thin Eyes: Yes: EOM Intact HENT: Yes: Normocephalic Neck: Yes: Trachea Midline Cardiovascular: Yes: Regular Rate and Rhythm Respiratory: Yes: CTA Bilaterally Gastrointestinal: Yes: Normal Bowel Sounds ...Rectal Exam: Yes: Deferred Renal/: Yes: WNL Breast(s): Yes: WNL Musculoskeletal: Yes: Muscle Weakness Edema: Yes Edema: LUE: 1+ Integumentary: Yes: Rash, Tattoos Wound/Incision: Yes: Excoriated Neurological: Yes: Weakness Labs: CBC, BMP 07/24/17 05:34 07/24/17 20:30 Problem List - Problems (1) Abscess Code(s): L02.91 - CUTANEOUS ABSCESS, UNSPECIFIED (2) Abscess of forearm Code(s): L02.419 - CUTANEOUS ABSCESS OF LIMB, UNSPECIFIED (3) DKA, type 1 Code(s): E10.10 - TYPE 1 DIABETES MELLITUS WITH KETOACIDOSIS WITHOUT COMA Qualifiers: Diabetes mellitus complication detail: without coma Qualified Code(s): E10.10 - Type 1 diabetes mellitus with ketoacidosis without coma (4) Diabetic ketoacidosis Code(s): E13.10 - OTH DIABETES MELLITUS WITH KETOACIDOSIS WITHOUT COMA Qualifiers: Diabetes mellitus type: type 1 Diabetes mellitus complication detail: without coma Qualified Code(s): E10.10 - Type 1 diabetes mellitus with ketoacidosis without coma (5) Gram-positive bacteremia Code(s): R78.81 - BACTEREMIA (6) Hypokalemia Code(s): E87.6 - HYPOKALEMIA (7) Sepsis Code(s): A41.9 - SEPSIS, UNSPECIFIED ORGANISM (8) Thrombophlebitis arm Code(s): I80.8 - PHLEBITIS AND THROMBOPHLEBITIS OF OTHER SITES Assessment/Plan Current Active Problems Abscess (Acute) Abscess of forearm (Acute) DKA, type 1 (Acute) Diabetic ketoacidosis (Acute) Gram-positive bacteremia (Acute) Hypokalemia (Acute) Sepsis (Acute) Thrombophlebitis arm (Acute) Abnormal Lab Results 07/23/17 07/23/17 07/23/17 23:45 23:45 23:45 WBC 10.6 H D RBC 2.92 L Hgb 9.9 L D Hct 30.4 L D MCV 104.4 H MCH 34.1 H RDW 16.1 H Lymphocytes % (Manual) 1.0 L D PT with INR 13.10 H INR 1.16 H PTT (Actin FS) 25.3 L POC VBG pCO2 31.0 L POC VBG pO2 23.0 L Mixed VBG HCO3 15.4 L Potassium Chloride Carbon Dioxide Anion Gap BUN Creatinine Random Glucose Lactic Acid Calcium Phosphorus Magnesium Total Bilirubin Direct Bilirubin AST ALT Alkaline Phosphatase CK-MB (CK-2) Troponin I B-Natriuretic Peptide Total Protein Albumin Urine Protein Urine Glucose (UA) Urine Ketones Urine Blood 07/23/17 07/23/17 07/23/17 23:45 23:45 23:45 WBC RBC Hgb Hct MCV MCH RDW Lymphocytes % (Manual) PT with INR INR PTT (Actin FS) POC VBG pCO2 POC VBG pO2 Mixed VBG HCO3 Potassium 3.4 L Chloride 94 L Carbon Dioxide 14 L D Anion Gap 29 H BUN 28 H D Creatinine 2.2 H D Random Glucose 587 H* D Lactic Acid 13.9 H* Calcium Phosphorus 2.0 L Magnesium 1.7 L Total Bilirubin 1.8 H D Direct Bilirubin AST 86 H D ALT 154 H D Alkaline Phosphatase 240 H D CK-MB (CK-2) 4.570 H Troponin I 0.13 H D B-Natriuretic Peptide 7820.11 H Total Protein 5.4 L Albumin 2.0 L Urine Protein Urine Glucose (UA) Urine Ketones Urine Blood 07/24/17 07/24/17 07/24/17 00:00 05:34 05:34 WBC RBC Hgb Hct MCV MCH RDW Lymphocytes % (Manual) PT with INR INR PTT (Actin FS) POC VBG pCO2 POC VBG pO2 Mixed VBG HCO3 Potassium 3.3 L Chloride Carbon Dioxide 15 L Anion Gap 18 H BUN 24 H Creatinine 1.8 H Random Glucose 492 H* Lactic Acid 6.9 H* Calcium 7.3 L Phosphorus Magnesium 1.4 L Total Bilirubin Direct Bilirubin AST ALT Alkaline Phosphatase CK-MB (CK-2) Troponin I B-Natriuretic Peptide Total Protein Albumin Urine Protein 2+ H Urine Glucose (UA) 3+ H Urine Ketones 1+ H Urine Blood 2+ H 07/24/17 07/24/17 07/24/17 05:34 09:30 09:30 WBC RBC 2.60 L Hgb 8.9 L D Hct 26.8 L MCV 102.8 H MCH 34.1 H RDW Lymphocytes % (Manual) PT with INR INR PTT (Actin FS) POC VBG pCO2 POC VBG pO2 Mixed VBG HCO3 Potassium Chloride Carbon Dioxide 19 L D Anion Gap BUN 24 H Creatinine 1.6 H Random Glucose 308 H* D Lactic Acid 6.3 H* Calcium 8.1 L Phosphorus Magnesium Total Bilirubin Direct Bilirubin AST ALT Alkaline Phosphatase CK-MB (CK-2) Troponin I B-Natriuretic Peptide Total Protein Albumin Urine Protein Urine Glucose (UA) Urine Ketones Urine Blood 07/24/17 07/24/17 07/24/17 09:30 15:00 20:00 WBC RBC Hgb Hct MCV MCH RDW Lymphocytes % (Manual) PT with INR INR PTT (Actin FS) POC VBG pCO2 POC VBG pO2 Mixed VBG HCO3 Potassium 2.8 L* D Chloride Carbon Dioxide Anion Gap BUN Creatinine Random Glucose Lactic Acid 5.2 H* Calcium 7.4 L Phosphorus 0.8 L* 0.8 L* Magnesium 1.7 L D Total Bilirubin 1.3 H D Direct Bilirubin 0.6 H AST 111 H D ALT 131 H Alkaline Phosphatase 193 H CK-MB (CK-2) Troponin I B-Natriuretic Peptide Total Protein 4.7 L Albumin 1.7 L Urine Protein Urine Glucose (UA) Urine Ketones Urine Blood 07/24/17 07/24/17 20:30 20:30 WBC RBC Hgb Hct MCV MCH RDW Lymphocytes % (Manual) PT with INR INR PTT (Actin FS) POC VBG pCO2 POC VBG pO2 Mixed VBG HCO3 Potassium 3.2 L Chloride Carbon Dioxide Anion Gap BUN Creatinine Random Glucose 175 H D Lactic Acid Calcium 7.1 L Phosphorus Magnesium 1.7 L D Total Bilirubin Direct Bilirubin AST ALT Alkaline Phosphatase CK-MB (CK-2) Troponin I B-Natriuretic Peptide Total Protein Albumin Urine Protein Urine Glucose (UA) Urine Ketones Urine Blood Laboratory Results - last 24 hr 07/23/17 07/23/17 07/23/17 23:00 23:45 23:45 WBC 10.6 H D RBC 2.92 L Hgb 9.9 L D Hct 30.4 L D MCV 104.4 H MCH 34.1 H MCHC 32.6 RDW 16.1 H Plt Count 249 D MPV 8.5 Neutrophils % No Result Required. Neutrophils % (Manual) 81.6 Band Neutrophils % 4.1 Lymphocytes % No Result Required. Lymphocytes % (Manual) 1.0 L D Monocytes % (Manual) 10 Eosinophils % (Manual) 0.0 Basophils % (Manual) 0.0 Myelocytes % (Man) 1 Promyelocytes % (Man) 0 Nucleated RBC % 0 Metamyelocytes 2 D Platelet Estimate Normal Poikilocytosis 0 Anisocytosis 1+ Macrocytosis 1+ PT with INR 13.10 H INR 1.16 H PTT (Actin FS) 25.3 L VBG pH POC VBG pCO2 POC VBG pO2 Mixed VBG HCO3 Sodium Potassium Chloride Carbon Dioxide Anion Gap BUN Creatinine Creat Clearance w eGFR POC Glucometer > 400 Random Glucose Lactic Acid Calcium Phosphorus Magnesium Total Bilirubin Direct Bilirubin AST ALT Alkaline Phosphatase Creatine Kinase Creatine Kinase Index CK-MB (CK-2) Troponin I B-Natriuretic Peptide Total Protein Albumin TSH Urine Color Urine Appearance Urine pH Ur Specific [place] Urine Protein Urine Glucose (UA) Urine Ketones Urine Blood Urine Nitrite Urine Bilirubin Urine Urobilinogen Ur Leukocyte Esterase Urine WBC (Auto) Urine RBC (Auto) Hyaline Casts Urine Mucus Opiates Screen Methadone Screen Barbiturate Screen Phencyclidine Screen Ur Amphetamines Screen MDMA (Ecstasy) Screen Benzodiazepines Screen Cocaine Screen U Marijuana (THC) Screen Acetone, Qual HIV 1&2 Antibody Screen HIV P24 Antigen Blood Type Antibody Screen 07/23/17 07/23/17 07/23/17 23:45 23:45 23:45 WBC RBC Hgb Hct MCV MCH MCHC RDW Plt Count MPV Neutrophils % Neutrophils % (Manual) Band Neutrophils % Lymphocytes % Lymphocytes % (Manual) Monocytes % (Manual) Eosinophils % (Manual) Basophils % (Manual) Myelocytes % (Man) Promyelocytes % (Man) Nucleated RBC % Metamyelocytes Platelet Estimate Poikilocytosis Anisocytosis Macrocytosis PT with INR INR PTT (Actin FS) VBG pH 7.32 POC VBG pCO2 31.0 L POC VBG pO2 23.0 L Mixed VBG HCO3 15.4 L Sodium Cancelled Potassium Cancelled Chloride Cancelled Carbon Dioxide Cancelled Anion Gap Cancelled BUN Cancelled Creatinine Cancelled Creat Clearance w eGFR Cancelled POC Glucometer Random Glucose Cancelled Lactic Acid 13.9 H* Calcium Cancelled Phosphorus Magnesium Total Bilirubin Cancelled Direct Bilirubin AST Cancelled ALT Cancelled Alkaline Phosphatase Cancelled Creatine Kinase Cancelled Creatine Kinase Index CK-MB (CK-2) Troponin I Cancelled B-Natriuretic Peptide Total Protein Cancelled Albumin Cancelled TSH Urine Color Urine Appearance Urine pH Ur Specific [place] Urine Protein Urine Glucose (UA) Urine Ketones Urine Blood Urine Nitrite Urine Bilirubin Urine Urobilinogen Ur Leukocyte Esterase Urine WBC (Auto) Urine RBC (Auto) Hyaline Casts Urine Mucus Opiates Screen Methadone Screen Barbiturate Screen Phencyclidine Screen Ur Amphetamines Screen MDMA (Ecstasy) Screen Benzodiazepines Screen Cocaine Screen U Marijuana (THC) Screen Acetone, Qual HIV 1&2 Antibody Screen HIV P24 Antigen Blood Type Antibody Screen 07/23/17 07/23/17 07/23/17 23:45 23:45 23:45 WBC RBC Hgb Hct MCV MCH MCHC RDW Plt Count MPV Neutrophils % Neutrophils % (Manual) Band Neutrophils % Lymphocytes % Lymphocytes % (Manual) Monocytes % (Manual) Eosinophils % (Manual) Basophils % (Manual) Myelocytes % (Man) Promyelocytes % (Man) Nucleated RBC % Metamyelocytes Platelet Estimate Poikilocytosis Anisocytosis Macrocytosis PT with INR INR PTT (Actin FS) VBG pH POC VBG pCO2 POC VBG pO2 Mixed VBG HCO3 Sodium 137 Potassium 3.4 L Chloride 94 L Carbon Dioxide 14 L D Anion Gap 29 H BUN 28 H D Creatinine 2.2 H D Creat Clearance w eGFR 37.28 POC Glucometer Random Glucose 587 H* D Lactic Acid Calcium 8.8 Phosphorus 2.0 L Magnesium Total Bilirubin 1.8 H D Direct Bilirubin AST 86 H D ALT 154 H D Alkaline Phosphatase 240 H D Creatine Kinase 304 Creatine Kinase Index 1.5 CK-MB (CK-2) 4.570 H Troponin I 0.13 H D B-Natriuretic Peptide 7820.11 H Total Protein 5.4 L Albumin 2.0 L TSH Urine Color Urine Appearance Urine pH Ur Specific [place] Urine Protein Urine Glucose (UA) Urine Ketones Urine Blood Urine Nitrite Urine Bilirubin Urine Urobilinogen Ur Leukocyte Esterase Urine WBC (Auto) Urine RBC (Auto) Hyaline Casts Urine Mucus Opiates Screen Methadone Screen Barbiturate Screen Phencyclidine Screen Ur Amphetamines Screen MDMA (Ecstasy) Screen Benzodiazepines Screen Cocaine Screen U Marijuana (THC) Screen Acetone, Qual Positive small 1+ HIV 1&2 Antibody Screen HIV P24 Antigen Blood Type B POSITIVE Antibody Screen Negative 07/23/17 07/24/17 07/24/17 23:45 00:00 00:33 WBC RBC Hgb Hct MCV MCH MCHC RDW Plt Count MPV Neutrophils % Neutrophils % (Manual) Band Neutrophils % Lymphocytes % Lymphocytes % (Manual) Monocytes % (Manual) Eosinophils % (Manual) Basophils % (Manual) Myelocytes % (Man) Promyelocytes % (Man) Nucleated RBC % Metamyelocytes Platelet Estimate Poikilocytosis Anisocytosis Macrocytosis PT with INR INR PTT (Actin FS) VBG pH POC VBG pCO2 POC VBG pO2 Mixed VBG HCO3 Sodium Cancelled Potassium Cancelled Chloride Cancelled Carbon Dioxide Cancelled Anion Gap Cancelled BUN Cancelled Creatinine Cancelled Creat Clearance w eGFR Cancelled POC Glucometer Random Glucose Cancelled Lactic Acid Calcium Cancelled Phosphorus Magnesium 1.7 L Total Bilirubin Cancelled Direct Bilirubin AST Cancelled ALT Cancelled Alkaline Phosphatase Cancelled Creatine Kinase Cancelled Creatine Kinase Index CK-MB (CK-2) Troponin I Cancelled B-Natriuretic Peptide Total Protein Cancelled Albumin Cancelled TSH 1.76 Urine Color Dkyellow Urine Appearance Cloudy Urine pH 6.0 Ur Specific [place] 1.016 Urine Protein 2+ H Urine Glucose (UA) 3+ H Urine Ketones 1+ H Urine Blood 2+ H Urine Nitrite Negative Urine Bilirubin Negative Urine Urobilinogen 2.0 Ur Leukocyte Esterase Negative Urine WBC (Auto) 18 Urine RBC (Auto) 5 Hyaline Casts 25 Urine Mucus Few Opiates Screen Methadone Screen Barbiturate Screen Phencyclidine Screen Ur Amphetamines Screen MDMA (Ecstasy) Screen Benzodiazepines Screen Cocaine Screen U Marijuana (THC) Screen Acetone, Qual HIV 1&2 Antibody Screen HIV P24 Antigen Blood Type Antibody Screen 07/24/17 07/24/17 07/24/17 05:34 05:34 05:34 WBC 7.3 D RBC 2.60 L Hgb 8.9 L D Hct 26.8 L MCV 102.8 H MCH 34.1 H MCHC 33.2 RDW 15.9 Plt Count 196 D MPV 7.9 Neutrophils % Neutrophils % (Manual) Band Neutrophils % Lymphocytes % Lymphocytes % (Manual) Monocytes % (Manual) Eosinophils % (Manual) Basophils % (Manual) Myelocytes % (Man) Promyelocytes % (Man) Nucleated RBC % Metamyelocytes Platelet Estimate Poikilocytosis Anisocytosis Macrocytosis PT with INR INR PTT (Actin FS) VBG pH POC VBG pCO2 POC VBG pO2 Mixed VBG HCO3 Sodium 139 Potassium 3.3 L Chloride 106 D Carbon Dioxide 15 L Anion Gap 18 H BUN 24 H Creatinine 1.8 H Creat Clearance w eGFR POC Glucometer Random Glucose 492 H* Lactic Acid 6.9 H* Calcium 7.3 L Phosphorus Magnesium 1.4 L Total Bilirubin Direct Bilirubin AST ALT Alkaline Phosphatase Creatine Kinase Creatine Kinase Index CK-MB (CK-2) Troponin I B-Natriuretic Peptide Total Protein Albumin TSH Urine Color Urine Appearance Urine pH Ur Specific [place] Urine Protein Urine Glucose (UA) Urine Ketones Urine Blood Urine Nitrite Urine Bilirubin Urine Urobilinogen Ur Leukocyte Esterase Urine WBC (Auto) Urine RBC (Auto) Hyaline Casts Urine Mucus Opiates Screen Methadone Screen Barbiturate Screen Phencyclidine Screen Ur Amphetamines Screen MDMA (Ecstasy) Screen Benzodiazepines Screen Cocaine Screen U Marijuana (THC) Screen Acetone, Qual HIV 1&2 Antibody Screen HIV P24 Antigen Blood Type Antibody Screen 07/24/17 07/24/17 07/24/17 09:30 09:30 09:30 WBC RBC Hgb Hct MCV MCH MCHC RDW Plt Count MPV Neutrophils % Neutrophils % (Manual) Band Neutrophils % Lymphocytes % Lymphocytes % (Manual) Monocytes % (Manual) Eosinophils % (Manual) Basophils % (Manual) Myelocytes % (Man) Promyelocytes % (Man) Nucleated RBC % Metamyelocytes Platelet Estimate Poikilocytosis Anisocytosis Macrocytosis PT with INR INR PTT (Actin FS) VBG pH POC VBG pCO2 POC VBG pO2 Mixed VBG HCO3 Sodium 137 Potassium 3.8 Chloride 103 Carbon Dioxide 19 L D Anion Gap 15 BUN 24 H Creatinine 1.6 H Creat Clearance w eGFR POC Glucometer Random Glucose 308 H* D Lactic Acid 6.3 H* Calcium 8.1 L Phosphorus 0.8 L* Magnesium 1.7 L D Total Bilirubin 1.3 H D Direct Bilirubin 0.6 H AST 111 H D ALT 131 H Alkaline Phosphatase 193 H Creatine Kinase Creatine Kinase Index CK-MB (CK-2) Troponin I B-Natriuretic Peptide Total Protein 4.7 L Albumin 1.7 L TSH Urine Color Urine Appearance Urine pH Ur Specific [place] Urine Protein Urine Glucose (UA) Urine Ketones Urine Blood Urine Nitrite Urine Bilirubin Urine Urobilinogen Ur Leukocyte Esterase Urine WBC (Auto) Urine RBC (Auto) Hyaline Casts Urine Mucus Opiates Screen Methadone Screen Barbiturate Screen Phencyclidine Screen Ur Amphetamines Screen MDMA (Ecstasy) Screen Benzodiazepines Screen Cocaine Screen U Marijuana (THC) Screen Acetone, Qual HIV 1&2 Antibody Screen HIV P24 Antigen Blood Type Antibody Screen 07/24/17 07/24/17 07/24/17 10:21 11:40 13:19 WBC RBC Hgb Hct MCV MCH MCHC RDW Plt Count MPV Neutrophils % Neutrophils % (Manual) Band Neutrophils % Lymphocytes % Lymphocytes % (Manual) Monocytes % (Manual) Eosinophils % (Manual) Basophils % (Manual) Myelocytes % (Man) Promyelocytes % (Man) Nucleated RBC % Metamyelocytes Platelet Estimate Poikilocytosis Anisocytosis Macrocytosis PT with INR INR PTT (Actin FS) VBG pH POC VBG pCO2 POC VBG pO2 Mixed VBG HCO3 Sodium Potassium Chloride Carbon Dioxide Anion Gap BUN Creatinine Creat Clearance w eGFR POC Glucometer 322.25455 262.32060 149.76195 Random Glucose Lactic Acid Calcium Phosphorus Magnesium Total Bilirubin Direct Bilirubin AST ALT Alkaline Phosphatase Creatine Kinase Creatine Kinase Index CK-MB (CK-2) Troponin I B-Natriuretic Peptide Total Protein Albumin TSH Urine Color Urine Appearance Urine pH Ur Specific [place] Urine Protein Urine Glucose (UA) Urine Ketones Urine Blood Urine Nitrite Urine Bilirubin Urine Urobilinogen Ur Leukocyte Esterase Urine WBC (Auto) Urine RBC (Auto) Hyaline Casts Urine Mucus Opiates Screen Methadone Screen Barbiturate Screen Phencyclidine Screen Ur Amphetamines Screen MDMA (Ecstasy) Screen Benzodiazepines Screen Cocaine Screen U Marijuana (THC) Screen Acetone, Qual HIV 1&2 Antibody Screen HIV P24 Antigen Blood Type Antibody Screen 07/24/17 07/24/17 07/24/17 15:00 15:00 16:19 WBC RBC Hgb Hct MCV MCH MCHC RDW Plt Count MPV Neutrophils % Neutrophils % (Manual) Band Neutrophils % Lymphocytes % Lymphocytes % (Manual) Monocytes % (Manual) Eosinophils % (Manual) Basophils % (Manual) Myelocytes % (Man) Promyelocytes % (Man) Nucleated RBC % Metamyelocytes Platelet Estimate Poikilocytosis Anisocytosis Macrocytosis PT with INR INR PTT (Actin FS) VBG pH POC VBG pCO2 POC VBG pO2 Mixed VBG HCO3 Sodium 140 Potassium 2.8 L* D Chloride 105 Carbon Dioxide 25 D Anion Gap 10 BUN 18 D Creatinine 1.1 D Creat Clearance w eGFR POC Glucometer 112.31272 Random Glucose 81 D Lactic Acid Calcium 7.4 L Phosphorus 0.8 L* Magnesium 2.3 D Total Bilirubin Direct Bilirubin AST ALT Alkaline Phosphatase Creatine Kinase Creatine Kinase Index CK-MB (CK-2) Troponin I B-Natriuretic Peptide Total Protein Albumin TSH Urine Color Urine Appearance Urine pH Ur Specific [place] Urine Protein Urine Glucose (UA) Urine Ketones Urine Blood Urine Nitrite Urine Bilirubin Urine Urobilinogen Ur Leukocyte Esterase Urine WBC (Auto) Urine RBC (Auto) Hyaline Casts Urine Mucus Opiates Screen Methadone Screen Barbiturate Screen Phencyclidine Screen Ur Amphetamines Screen MDMA (Ecstasy) Screen Benzodiazepines Screen Cocaine Screen U Marijuana (THC) Screen Acetone, Qual HIV 1&2 Antibody Screen Negative HIV P24 Antigen Negative Blood Type Antibody Screen 07/24/17 07/24/17 07/24/17 18:20 20:00 20:25 WBC RBC Hgb Hct MCV MCH MCHC RDW Plt Count MPV Neutrophils % Neutrophils % (Manual) Band Neutrophils % Lymphocytes % Lymphocytes % (Manual) Monocytes % (Manual) Eosinophils % (Manual) Basophils % (Manual) Myelocytes % (Man) Promyelocytes % (Man) Nucleated RBC % Metamyelocytes Platelet Estimate Poikilocytosis Anisocytosis Macrocytosis PT with INR INR PTT (Actin FS) VBG pH POC VBG pCO2 POC VBG pO2 Mixed VBG HCO3 Sodium Potassium Chloride Carbon Dioxide Anion Gap BUN Creatinine Creat Clearance w eGFR POC Glucometer 216.58662 221.37495 Random Glucose Lactic Acid 5.2 H* Calcium Phosphorus Magnesium Total Bilirubin Direct Bilirubin AST ALT Alkaline Phosphatase Creatine Kinase Creatine Kinase Index CK-MB (CK-2) Troponin I B-Natriuretic Peptide Total Protein Albumin TSH Urine Color Urine Appearance Urine pH Ur Specific [place] Urine Protein Urine Glucose (UA) Urine Ketones Urine Blood Urine Nitrite Urine Bilirubin Urine Urobilinogen Ur Leukocyte Esterase Urine WBC (Auto) Urine RBC (Auto) Hyaline Casts Urine Mucus Opiates Screen Methadone Screen Barbiturate Screen Phencyclidine Screen Ur Amphetamines Screen MDMA (Ecstasy) Screen Benzodiazepines Screen Cocaine Screen U Marijuana (THC) Screen Acetone, Qual HIV 1&2 Antibody Screen HIV P24 Antigen Blood Type Antibody Screen 07/24/17 07/24/17 07/24/17 20:30 20:30 21:56 WBC RBC Hgb Hct MCV MCH MCHC RDW Plt Count MPV Neutrophils % Neutrophils % (Manual) Band Neutrophils % Lymphocytes % Lymphocytes % (Manual) Monocytes % (Manual) Eosinophils % (Manual) Basophils % (Manual) Myelocytes % (Man) Promyelocytes % (Man) Nucleated RBC % Metamyelocytes Platelet Estimate Poikilocytosis Anisocytosis Macrocytosis PT with INR INR PTT (Actin FS) VBG pH POC VBG pCO2 POC VBG pO2 Mixed VBG HCO3 Sodium 138 Potassium 3.2 L Chloride 104 Carbon Dioxide 23 Anion Gap 11 BUN 17 Creatinine 1.1 Creat Clearance w eGFR POC Glucometer Random Glucose 175 H D Lactic Acid Calcium 7.1 L Phosphorus 2.7 D Magnesium 1.7 L D Total Bilirubin Direct Bilirubin AST ALT Alkaline Phosphatase Creatine Kinase Creatine Kinase Index CK-MB (CK-2) Troponin I B-Natriuretic Peptide Total Protein Albumin TSH Urine Color Urine Appearance Urine pH Ur Specific [place] Urine Protein Urine Glucose (UA) Urine Ketones Urine Blood Urine Nitrite Urine Bilirubin Urine Urobilinogen Ur Leukocyte Esterase Urine WBC (Auto) Urine RBC (Auto) Hyaline Casts Urine Mucus Opiates Screen Positive Methadone Screen Negative Barbiturate Screen Negative Phencyclidine Screen Negative Ur Amphetamines Screen Negative MDMA (Ecstasy) Screen Negative Benzodiazepines Screen Negative Cocaine Screen Positive U Marijuana (THC) Screen Negative Acetone, Qual HIV 1&2 Antibody Screen HIV P24 Antigen Blood Type Antibody Screen Laboratory Tests 07/24/17 07/24/17 20:25 20:30 Sodium 138 Potassium 3.2 L Chloride 104 Carbon Dioxide 23 Anion Gap 11 BUN 17 Creatinine 1.1 POC Glucometer 221.62166 Random Glucose 175 H D plan: Laboratory Tests 07/23/17 07/24/17 07/24/17 23:00 10:21 11:40 POC Glucometer > 400 322.60558 262.05120 07/24/17 07/24/17 07/24/17 13:19 16:19 18:20 POC Glucometer 149.70201 112.82887 216.26479 07/24/17 20:25 POC Glucometer 221.21969 given recent bs with ivfluid and insulin drip change ivfluids when bs below 200mg/dl to .5ns w 20kcl @150cc /hr bgm q4hrs novolog sliding scale ck [id number] start levemir 15 units am increase as diet improves
[2017-07-25] MEDS: SODIUM CHLORIDE 0.45%/POT 20 MEQ/1,000 ML INFUS.BAG IV SCH
[2017-07-25] MEDS ORDERED: DEXTROSE 50%-WATER - 25 GM/50 ML VIAL IVPUSH ONE ×2 (01:00→05:27)
[2017-07-25] MEDS ORDERED: DEXTROSE 50%-WATER 25 GM/50 ML DISP.SYRIN ONE ×3 (01:03→05:38)
[2017-07-25] MEDS: VANCOMYCIN 1,000 MG in DEXTROSE 5%-WATER - 250 ML IVPB SCH ×2 (01:21→15:51)
[2017-07-25] MEDS: PIPERACILLIN/TAZOB 3.375 GM 3.375 GM in DEXTROSE 5%-WATER - 50 ML IVPB SCH (01:21)
[2017-07-25] MEDS: INSULIN SLIDING SCALE (NOVOLOG) 1 VIAL SQ SCH ×7 (01:21→21:30)
[2017-07-25] MEDS ORDERED: SODIUM CHLORIDE 0.9% 1000 ML INFUS.BAG IV ONE (01:30)
[2017-07-25 01:52] LABS: ANION GAP 8 (8-16); BLOOD UREA NITROGEN 15 mg/dL (7-18); CALCIUM 7.3 mg/dL (8.5-10.1); CHLORIDE 103 mmol/L (98-107); CO2 27 mmol/L (21-32); CREATININE 0.9 mg/dL (0.7-1.3); POTASSIUM 3.4 mmol/L (3.5-5.1); SODIUM 138 mmol/L (136-145)
[2017-07-25 02:00] LABS: GLUCOSE,RANDOM 32 mg/dL (74-106)
[2017-07-25] MEDS ORDERED: D5-1/2NS+20 MEQ KCL - 20 MEQ/1,000 ML INFUS.BAG IV SCH (05:30)
[2017-07-25] MEDS ORDERED: LACTATED RINGERS SOLUTION 1,000 ML/1,000 ML INFUS.BAG IV STA (05:34)
[2017-07-25] MEDS: GABAPENTIN 100 MG CAPSULE (FP) PO SCH ×3 (05:50→21:14)
[2017-07-25] MEDS: HEPARIN NA (PORCINE) 5,000 UNITS/ML 1ML VIAL SQ SCH ×3 (05:51→21:15)
[2017-07-25] MEDS: CYCLOBENZAPRINE HCL 10 MG TABLET (FP) PO SCH ×3 (05:51→21:15)
[2017-07-25] MEDS ORDERED: HEMOQUE TEST 1 EACH EACH ONE (06:18)
[2017-07-25 06:30] LABS: BASO % 0.4 % (0-2.0); EOS % 0.3 % (0-4.5); HEMATOCRIT 22.9 % (35.4-49); HEMOGLOBIN 7.7 GM/dL (11.7-16.9); LYMPH % 9.4 % (8-40); MCH 33.5 pg (25.7-33.7); MCHC 33.8 g/dl (32.0-35.9); MEAN PLT VOLUME 8.8 fl (7.5-11.1); MONO % 3.1 % (3.8-10.2); NEUT % 86.8 % (42.8-82.8); PLATELET COUNT 118 K/MM3 (134-434); RBC 2.31 M/mm3 (4.00-5.60); RDW 15.9 % (11.9-15.9); WHITE BLOOD COUNT 8.4 K/mm3 (4.0-10.0)
[2017-07-25] MEDS ORDERED: INSULIN SLIDING SCALE (NOVOLOG) 1 VIAL SQ SCH (07:00)
[2017-07-25] MEDS ORDERED: INSULIN DETEMIR 100 UNITS/ML MDV SQ SCH (07:00)
--- NOTE | 2017-07-25 08:03 | PN ---
Progress Note, Physician Chief Complaint: ID Alert NAD Vancomycin Zosyn - Current Medication List Current Medications: Active Medications Clonidine (Catapres -) 0.1 mg PO BID [facility] Last Admin: 07/24/17 22:41 Dose: 0.1 mg Cyclobenzaprine HCl (Flexeril -) 10 mg PO TID [facility] Last Admin: 07/25/17 05:51 Dose: 10 mg Diazepam (Valium -) 10 mg PO Q4H PRN PRN Reason: WITHDRAWAL(CONT SUBST) Stop: 07/27/17 10:39 Gabapentin (Neurontin -) 100 mg PO TID [facility] Last Admin: 07/25/17 05:50 Dose: 100 mg Heparin Sodium (Porcine) (Heparin -) 5,000 unit SQ TID [facility] Last Admin: 07/25/17 05:51 Dose: 5,000 unit Piperacillin Sod/Tazobactam (Sod 3.375 gm/ Dextrose) 50 mls @ 100 mls/hr IVPB Q8H-IV [facility] Last Admin: 07/25/17 01:21 Dose: 100 mls/hr Vancomycin HCl 1,000 mg/ (Dextrose) 250 mls @ 166.667 mls/hr IVPB BID@0200, 1400 [facility] PRN Reason: Protocol Last Admin: 07/25/17 01:21 Dose: 166.667 mls/hr Potassium Chloride/Sodium Chloride (1/2ns+20meq Kcl) 20 meq in 1,000 mls @ 150 mls/hr IV ASDIR [facility] Last Admin: 07/25/17 00:00 Dose: 150 mls/hr Potassium Chloride/Dextrose/Sod Cl (D5-1/2ns+20 Meq Kcl -) 20 meq in 1,000 mls @ 125 mls/hr IV ASDIR [facility] Last Admin: 07/25/17 06:00 Dose: 125 mls/hr Insulin Aspart (Novolog Vial Sliding Scale -) 1 vial SQ Q4HPO [facility] PRN Reason: Protocol Last Admin: 07/25/17 05:51 Dose: Not Given Insulin Detemir (Levemir Vial) 15 units SQ AM [facility] Last Admin: 07/25/17 06:27 Dose: Not Given Methadone HCl (Dolophine -) 20 mg PO ONCE ONE Stop: 07/25/17 10:01 Methadone HCl (Dolophine -) 10 mg PO ONCE ONE Stop: 07/28/17 10:01 Methadone HCl (Dolophine -) 15 mg PO ONCE@1000 ONE Stop: 07/26/17 10:01 Methadone HCl (Dolophine -) 5 mg PO ONCE ONE Stop: 07/29/17 06:01 Methadone HCl (Dolophine -) 15 mg PO ONCE@1000 ONE Stop: 07/27/17 10:01 Nicotine (Nicoderm Patch -) 21 mg TD DAILY [facility] Nicotine Polacrilex (Nicorette Gum -) 2 mg BUC Q2H PRN PRN Reason: NICOTINE REPLACEMENT RX Ondansetron HCl (Zofran Odt -) 8 mg SL Q6H PRN PRN Reason: NAUSEA AND/OR VOMITING Potassium Chloride (K-Dur -) 20 meq PO BID [facility] Last Admin: 07/24/17 22:41 Dose: 20 meq Multivit/Folic Acid/Iron ( Vitamins (Sjr) -) 1 tab PO DAILY [facility] Thiamine HCl (Vitamin B1 -) 100 mg PO HS [facility] Last Admin: 07/24/17 22:41 Dose: 100 mg Zolpidem Tartrate (Ambien -) 10 mg PO HS PRN PRN Reason: INSOMNIA Last Admin: 07/24/17 22:48 Dose: 10 mg - Objective Vital Signs: Vital Signs Temperature 99.5 F 07/25/17 06:00 Pulse Rate 100 H 07/25/17 06:00 Respiratory Rate 28 H 07/25/17 06:00 Blood Pressure 98/57 07/25/17 06:00 O2 Sat by Pulse Oximetry (%) 100 07/25/17 06:00 Constitutional: Yes: No Distress, Other (alert) Eyes: No: Conjunctiva Clear Neck: Yes: WNL, Supple Cardiovascular: Yes: Regular Rate and Rhythm, S1, S2. No: Murmur Respiratory: Yes: WNL, Regular, CTA Bilaterally Gastrointestinal: Yes: WNL, Normal Bowel Sounds, Soft. No: Tenderness Extremities: Yes: Other (Swollen left arm not fluctuant) Labs: CBC, BMP 07/25/17 05:10 07/25/17 01:00 INR, PTT INR 1.16 (0.82-1.09) H 07/23/17 23:45 Assessment/Plan Microbiology 07/23/17 23:35 Blood - Peripheral Venous Blood Culture - Preliminary Pending Organism 02/12/18 23:35 Blood - Peripheral Venous Blood Culture - Preliminary Pending Organism Laboratory Tests 07/24/17 07/25/17 07/25/17 15:00 01:00 05:10 WBC 8.4 Hgb 7.7 L D Hct 22.9 L Plt Count 118 L D BUN 15 Creatinine 0.9 HIV 1&2 Antibody Screen Negative HIV P24 Antigen Negative Assessment Gram positive bacteremia IVDA cellulitis with abscess of the left arm No evidence for deep vein thrombosis or abscess Chronic liver disease IVDA Plan Repeat blood cultures CRP ESR ECHO Vanco levels Await blood cultures Bob SANDERSON
[2017-07-25] MEDS ORDERED: PT OWN MED DRAWER 7, Y5N ONE (09:34)
[2017-07-25] MEDS ORDERED: METHADONE HCL 10 MG TABLET PO ONE (10:00)
[2017-07-25] MEDS: NICOTINE 21 MG/24 HOURS TOPICAL PATCH TD SCH (10:30)
[2017-07-25] MEDS: cloNIDine HCL 0.1 MG TABLET PO SCH ×2 (10:30→21:14)
[2017-07-25] MEDS: POTASSIUM CHLORIDE TABS 20 MEQ TABLET.ER (FP) PO SCH ×2 (10:30→21:14)
--- NOTE | 2017-07-25 13:07 | PN ---
Teaching Attending Note Name of Resident: Arlette Baez ATTENDING PHYSICIAN STATEMENT I saw and evaluated the patient. I reviewed the resident's note and discussed the case with the resident. I agree with the resident's findings and plan as documented. SUBJECTIVE: Pt seen and examined in the ICU. Clinically improving. Anion gap closed, started on long acting insulin. Hypoglycemic this AM. Blood cultures growing gram positive cocci in clusters. OBJECTIVE: Last Vital Signs Temp Pulse Resp BP Pulse Ox 99 F 131 H 26 H 116/74 100 07/25/17 10:00 07/25/17 12:00 07/25/17 12:00 07/25/17 12:00 07/25/17 09:00 Intake & Output 07/22/17 07/23/17 07/24/17 07/25/17 23:59 23:59 23:59 23:59 Intake Total 1350 3625 Output Total 5800 1000 Balance -4450 2625 Weight 52.163 kg 59.879 kg 59.33 kg Gen: lethargic, arousable Heart: tachycardic, regular Lung: decreased breath sounds at the bases Abd: soft, nontender Ext: no edema CBC, BMP 07/25/17 05:10 07/25/17 01:00 Active Medications Clonidine (Catapres -) 0.1 mg PO BID [facility] Last Admin: 07/25/17 10:30 Dose: 0.1 mg Cyclobenzaprine HCl (Flexeril -) 10 mg PO TID [facility] Last Admin: 07/25/17 05:51 Dose: 10 mg Diazepam (Valium -) 10 mg PO Q4H PRN PRN Reason: WITHDRAWAL(CONT SUBST) Stop: 07/27/17 10:39 Gabapentin (Neurontin -) 100 mg PO TID [facility] Last Admin: 07/25/17 05:50 Dose: 100 mg Heparin Sodium (Porcine) (Heparin -) 5,000 unit SQ TID [facility] Last Admin: 07/25/17 05:51 Dose: 5,000 unit Vancomycin HCl 1,000 mg/ (Dextrose) 250 mls @ 166.667 mls/hr IVPB BID@0200, 1400 [facility] PRN Reason: Protocol Last Admin: 07/25/17 01:21 Dose: 166.667 mls/hr Potassium Chloride/Sodium Chloride (1/2ns+20meq Kcl) 20 meq in 1,000 mls @ 150 mls/hr IV ASDIR [facility] Last Admin: 07/25/17 00:00 Dose: 150 mls/hr Potassium Chloride/Dextrose/Sod Cl (D5-1/2ns+20 Meq Kcl -) 20 meq in 1,000 mls @ 125 mls/hr IV ASDIR [facility] Last Admin: 07/25/17 06:00 Dose: 125 mls/hr Insulin Aspart (Novolog Vial Sliding Scale -) 1 vial SQ Q4HPO [facility] PRN Reason: Protocol Last Admin: 07/25/17 05:51 Dose: Not Given Insulin Detemir (Levemir Vial) 15 units SQ AM [facility] Last Admin: 07/25/17 06:27 Dose: Not Given Methadone HCl (Dolophine -) 10 mg PO ONCE ONE Stop: 07/28/17 10:01 Methadone HCl (Dolophine -) 15 mg PO ONCE@1000 ONE Stop: 07/26/17 10:01 Methadone HCl (Dolophine -) 5 mg PO ONCE ONE Stop: 07/29/17 06:01 Methadone HCl (Dolophine -) 15 mg PO ONCE@1000 ONE Stop: 07/27/17 10:01 Nicotine (Nicoderm Patch -) 21 mg TD DAILY [facility] Last Admin: 07/25/17 10:30 Dose: 21 mg Nicotine Polacrilex (Nicorette Gum -) 2 mg BUC Q2H PRN PRN Reason: NICOTINE REPLACEMENT RX Ondansetron HCl (Zofran Odt -) 8 mg SL Q6H PRN PRN Reason: NAUSEA AND/OR VOMITING Potassium Chloride (K-Dur -) 20 meq PO BID [facility] Last Admin: 07/25/17 10:30 Dose: 20 meq Multivit/Folic Acid/Iron ( Vitamins (Sjr) -) 1 tab PO DAILY [facility] Thiamine HCl (Vitamin B1 -) 100 mg PO HS [facility] Last Admin: 07/24/17 22:41 Dose: 100 mg Zolpidem Tartrate (Ambien -) 10 mg PO HS PRN PRN Reason: INSOMNIA Last Admin: 07/24/17 22:48 Dose: 10 mg ASSESSMENT AND PLAN: Diabetic Ketoacidosis improving Staph Bacteremia Severe Sepsis Acute Kidney Injury Lactic Acidosis +Troponins likely Demand Ischemia Elevated LFTs Metabolic Derangements IVDU/Polysubstance Abuse Anemia - continue IVF - monitor BGM, BMP - replete lytes - IV antibiotics including vanco, monitor levels - f/u cultures - monitor urine output, creatinine - trend lactate, cardiac enzymes, LFTs until downtrending - monitor H/H, no immediate indication for transfusion at this time - continue detox - can monitor on floor critical care time spent in reviewing chart, evaluating patient and formulating plan 35min
--- NOTE | 2017-07-25 14:30 | PN ---
Progress Note, Physician History of Present Illness: Tired this AM after the Ativan. Otherwise body pains have improved Overnight patient had labile blood sugars. Was given D50 pushes x2 In the AM fingerstick was 200s. - Current Medication List Current Medications: Active Medications Clonidine (Catapres -) 0.1 mg PO BID [facility] Last Admin: 07/25/17 10:30 Dose: 0.1 mg Cyclobenzaprine HCl (Flexeril -) 10 mg PO TID [facility] Last Admin: 07/25/17 05:51 Dose: 10 mg Diazepam (Valium -) 10 mg PO Q4H PRN PRN Reason: WITHDRAWAL(CONT SUBST) Stop: 07/27/17 10:39 Gabapentin (Neurontin -) 100 mg PO TID [facility] Last Admin: 07/25/17 05:50 Dose: 100 mg Heparin Sodium (Porcine) (Heparin -) 5,000 unit SQ TID [facility] Last Admin: 07/25/17 05:51 Dose: 5,000 unit Vancomycin HCl 1,000 mg/ (Dextrose) 250 mls @ 166.667 mls/hr IVPB BID@0200, 1400 [facility] PRN Reason: Protocol Last Admin: 07/25/17 01:21 Dose: 166.667 mls/hr Potassium Chloride/Sodium Chloride (1/2ns+20meq Kcl) 20 meq in 1,000 mls @ 150 mls/hr IV ASDIR [facility] Last Admin: 07/25/17 00:00 Dose: 150 mls/hr Potassium Chloride/Dextrose/Sod Cl (D5-1/2ns+20 Meq Kcl -) 20 meq in 1,000 mls @ 125 mls/hr IV ASDIR [facility] Last Admin: 07/25/17 06:00 Dose: 125 mls/hr Insulin Aspart (Novolog Vial Sliding Scale -) 1 vial SQ Q4HPO [facility] PRN Reason: Protocol Last Admin: 07/25/17 05:51 Dose: Not Given Insulin Detemir (Levemir Vial) 15 units SQ [facility] Methadone HCl (Dolophine -) 10 mg PO ONCE ONE Stop: 07/28/17 10:01 Methadone HCl (Dolophine -) 15 mg PO ONCE@1000 ONE Stop: 07/26/17 10:01 Methadone HCl (Dolophine -) 5 mg PO ONCE ONE Stop: 07/29/17 06:01 Methadone HCl (Dolophine -) 15 mg PO ONCE@1000 ONE Stop: 07/27/17 10:01 Nicotine (Nicoderm Patch -) 21 mg TD DAILY [facility] Last Admin: 07/25/17 10:30 Dose: 21 mg Nicotine Polacrilex (Nicorette Gum -) 2 mg BUC Q2H PRN PRN Reason: NICOTINE REPLACEMENT RX Ondansetron HCl (Zofran Odt -) 8 mg SL Q6H PRN PRN Reason: NAUSEA AND/OR VOMITING Potassium Chloride (K-Dur -) 20 meq PO BID [facility] Last Admin: 07/25/17 10:30 Dose: 20 meq Multivit/Folic Acid/Iron ( Vitamins (Sjr) -) 1 tab PO DAILY [facility] Thiamine HCl (Vitamin B1 -) 100 mg PO HS [facility] Last Admin: 07/24/17 22:41 Dose: 100 mg Zolpidem Tartrate (Ambien -) 10 mg PO HS PRN PRN Reason: INSOMNIA Last Admin: 07/24/17 22:48 Dose: 10 mg - Objective Vital Signs: Vital Signs Temperature 99 F 07/25/17 10:00 Pulse Rate 131 H 07/25/17 12:00 Respiratory Rate 26 H 07/25/17 12:00 Blood Pressure 116/74 07/25/17 12:00 O2 Sat by Pulse Oximetry (%) 100 07/25/17 09:00 Additional Findings/Remarks: GEN: Awake, but tired appearing, not in acute distress HEENT: PERRLA, EOMi CV: S1, S2, RRR LUNG: CTABL ABD: Soft, NT, ND MSK: Left forearm edematous with point of purulent drainage, redness in arm NEURO: CN 2-12 intact Labs: CBC, BMP 07/25/17 05:10 07/25/17 01:00 INR, PTT INR 1.16 (0.82-1.09) H 07/23/17 23:45 Assessment/Plan 21yo M with DM1, Active Heroin use, Hep C who presented in DKA and MRSA Bacteremia. # Endo: DKA -- Anion gap closed -- Endocrine on case, On Levemir 15 HS, BMP Q4 # ID: Presumptive MRSA bacteremia -- Likely 2/2 direct innoculation. Echo shows no endocarditis. Afebrile -- Zosyn was given one time, currently on Vanco 1g BID -- Ultrasound shows thrombophlebitis, no obvious abscess. Surgery Dr Beauchamp consulted, getting risk management involved prior to surgery. Multiple attempts to reach HCP Rosetta were attempted. Mother's number is incorrect in the chart. Keep NPO until risk mgmt decision # GI: Heroin Abuse, Transaminitis -- Placed on methadone taper by detox -- Liver u/s shows no abscess. Monitor transaminitis. # Renal: Acute Kidney Injury -- Resolved, likely from dehydration vs sepsis. # CV: Elevated troponins -- Likely secondary to CRISTINA, get new set of troponins tmrw # FEN/PPx: -- On IVF, NPO for now until decision for surgery is made -- SCDs, No GI ppx needed # Dispo: -- Stable to be transferred to floors. Not on insulin ggt. Hemodynamically stable. Arlette Baez MD PGY1 ICU Resident
--- NOTE | 2017-07-25 14:31 | PN ---
Progress Note, Physician Chief Complaint: IVDA with left arm cellulitis and infected thrombophlebitis History of Present Illness: 21yo LHD male PMH type 1 DM, current IV heroin user, Hepatitis C presented with altered mental status and generalized weakness. He remembers being dropped off in the ER. He remains hypersomulent. Attempts to contact his HCP have been unsuccessful. Will attempt to contact his mother listed as (next of kin). - Current Medication List Current Medications: Active Medications Clonidine (Catapres -) 0.1 mg PO BID [facility] Last Admin: 07/25/17 10:30 Dose: 0.1 mg Cyclobenzaprine HCl (Flexeril -) 10 mg PO TID [facility] Last Admin: 07/25/17 05:51 Dose: 10 mg Diazepam (Valium -) 10 mg PO Q4H PRN PRN Reason: WITHDRAWAL(CONT SUBST) Stop: 07/27/17 10:39 Gabapentin (Neurontin -) 100 mg PO TID [facility] Last Admin: 07/25/17 05:50 Dose: 100 mg Heparin Sodium (Porcine) (Heparin -) 5,000 unit SQ TID [facility] Last Admin: 07/25/17 05:51 Dose: 5,000 unit Vancomycin HCl 1,000 mg/ (Dextrose) 250 mls @ 166.667 mls/hr IVPB BID@0200, 1400 [facility] PRN Reason: Protocol Last Admin: 07/25/17 01:21 Dose: 166.667 mls/hr Potassium Chloride/Sodium Chloride (1/2ns+20meq Kcl) 20 meq in 1,000 mls @ 150 mls/hr IV ASDIR [facility] Last Admin: 07/25/17 00:00 Dose: 150 mls/hr Potassium Chloride/Dextrose/Sod Cl (D5-1/2ns+20 Meq Kcl -) 20 meq in 1,000 mls @ 125 mls/hr IV ASDIR [facility] Last Admin: 07/25/17 06:00 Dose: 125 mls/hr Insulin Aspart (Novolog Vial Sliding Scale -) 1 vial SQ Q4HPO [facility] PRN Reason: Protocol Last Admin: 07/25/17 05:51 Dose: Not Given Insulin Detemir (Levemir Vial) 15 units SQ [facility] Methadone HCl (Dolophine -) 10 mg PO ONCE ONE Stop: 07/28/17 10:01 Methadone HCl (Dolophine -) 15 mg PO ONCE@1000 ONE Stop: 07/26/17 10:01 Methadone HCl (Dolophine -) 5 mg PO ONCE ONE Stop: 07/29/17 06:01 Methadone HCl (Dolophine -) 15 mg PO ONCE@1000 ONE Stop: 07/27/17 10:01 Nicotine (Nicoderm Patch -) 21 mg TD DAILY [facility] Last Admin: 07/25/17 10:30 Dose: 21 mg Nicotine Polacrilex (Nicorette Gum -) 2 mg BUC Q2H PRN PRN Reason: NICOTINE REPLACEMENT RX Ondansetron HCl (Zofran Odt -) 8 mg SL Q6H PRN PRN Reason: NAUSEA AND/OR VOMITING Potassium Chloride (K-Dur -) 20 meq PO BID [facility] Last Admin: 07/25/17 10:30 Dose: 20 meq Multivit/Folic Acid/Iron ( Vitamins (Sjr) -) 1 tab PO DAILY [facility] Thiamine HCl (Vitamin B1 -) 100 mg PO HS [facility] Last Admin: 07/24/17 22:41 Dose: 100 mg Zolpidem Tartrate (Ambien -) 10 mg PO HS PRN PRN Reason: INSOMNIA Last Admin: 07/24/17 22:48 Dose: 10 mg - Objective Vital Signs: Vital Signs Temperature 99 F 07/25/17 10:00 Pulse Rate 131 H 07/25/17 12:00 Respiratory Rate 26 H 07/25/17 12:00 Blood Pressure 116/74 07/25/17 12:00 O2 Sat by Pulse Oximetry (%) 100 07/25/17 09:00 Vital Signs Period Temp Pulse Resp BP Sys/Nolan Pulse Ox Last 24 Hr 99 F-99.7 F 100-165 25-36 77-132/40-82 95-100 Constitutional: Yes: No Distress, Calm, Poor Hygeine, Thin HENT: Yes: Atraumatic, Normocephalic Neck: Yes: Supple, Trachea Midline Cardiovascular: Yes: Regular Rate and Rhythm, S1, S2 Respiratory: Yes: Regular, CTA Bilaterally Gastrointestinal: Yes: Normal Bowel Sounds, Soft. No: Tenderness ...Rectal Exam: Yes: Deferred Musculoskeletal: Yes: Joint Stiffness, Joint Swelling Extremities: Yes: Erythema, Other (Left arm edema, soft compartments, distal 2PD is intact, capillary refill <2seconds in finger tips.) Neurological: Yes: Oriented, Lethargy Psychiatric: Yes: Oriented Labs: CBC, BMP 07/25/17 05:10 07/25/17 01:00 INR, PTT INR 1.16 (0.82-1.09) H 07/23/17 23:45 Problem List - Problems (1) Thrombophlebitis arm Assessment/Plan: 21 yo LHD male with DM type 1 in DKA with aggressive left forearm cellulitis, thrombophlebitis, and draining abscess at the site of infecting IV drugs. There is no sign of compartment syndrome at present. But this is potentially limb threatening. Last meal at 10am EST. Patient is oriented but remains lethargic (intoxicated vs. septic) he is also unable physically to sign consent because his left arm significantly affected by the infectious process. ICU Care NPO and IVF hydration broad spectrum IV antibiotics trend labs glycemic control correct electrolytes left arm elevation above heart level He needs and Incision and drainage of left forearm injection site. I discussed with patient risks, benefits and alternatives of incision and drainge of left forearm abscess including but not limited to bleeding, worsening infection, compartment syndrome, injury to adjacent structures, loss of function dominant hand, ischemia requiring amputation, need for further procedures, ; alternatives include antibiotics, delayed or no surgery - risks of this include failure of nonoperative therapy, sepsis, recurrence, . Patient desires to proceed with operation - will take to OR for above. Informed consent which was acknowledged by patient and witnessed by RN but could not be signed was placed on the chart. Surgery is on the add-on schedule for 6pm EST. I will await further advice from Risk management. Multiple attempts to contact his health care proxy - Rosetta Zayas no answer, no voicemail "textmail subscriber". Attempt to contact his next of kin - Jennifer Lozano (mother) [phone] wrong number. Code(s): I80.8 - PHLEBITIS AND THROMBOPHLEBITIS OF OTHER SITES (2) Abscess of forearm Code(s): L02.419 - CUTANEOUS ABSCESS OF LIMB, UNSPECIFIED (3) Opioid dependence with withdrawal Code(s): F11.23 - OPIOID DEPENDENCE WITH WITHDRAWAL (4) Diabetes Code(s): E11.9 - TYPE 2 DIABETES MELLITUS WITHOUT COMPLICATIONS Qualifiers: Qualified Code(s): E10.9 - Type 1 diabetes mellitus without complications
--- NOTE | 2017-07-25 18:01 | CON.PSY ---
Psychiatry Consult Chief Complaint: Patient seen for an evaluationof capacity to sign consent for an emergency Surgery> patient has an abscess that needs to be taken care of.Patient with a history of SEvere Multiple substance abuse, admitted for Detox and Pnuumonia. - Previous Substance Abuse Treatment Outpatient: Less than 6 mos ago - Reason for Previous Treatment Reason for Previous Treatment: Heroin or Other Narcotics, Prescription Drug, Other Drugs - Current Medications Current Medications: Active Medications Clonidine (Catapres -) 0.1 mg PO BID [facility] Last Admin: 07/25/17 10:30 Dose: 0.1 mg Cyclobenzaprine HCl (Flexeril -) 10 mg PO TID [facility] Last Admin: 07/25/17 05:51 Dose: 10 mg Diazepam (Valium -) 10 mg PO Q4H PRN PRN Reason: WITHDRAWAL(CONT SUBST) Stop: 07/27/17 10:39 Gabapentin (Neurontin -) 100 mg PO TID [facility] Last Admin: 07/25/17 05:50 Dose: 100 mg Heparin Sodium (Porcine) (Heparin -) 5,000 unit SQ TID [facility] Last Admin: 07/25/17 05:51 Dose: 5,000 unit Vancomycin HCl 1,000 mg/ (Dextrose) 250 mls @ 166.667 mls/hr IVPB BID@0200, 1400 [facility] PRN Reason: Protocol Last Admin: 07/25/17 15:51 Dose: 166.667 mls/hr Potassium Chloride/Sodium Chloride (1/2ns+20meq Kcl) 20 meq in 1,000 mls @ 150 mls/hr IV ASDIR [facility] Last Admin: 07/25/17 00:00 Dose: 150 mls/hr Potassium Chloride/Dextrose/Sod Cl (D5-1/2ns+20 Meq Kcl -) 20 meq in 1,000 mls @ 125 mls/hr IV ASDIR [facility] Last Admin: 07/25/17 06:00 Dose: 125 mls/hr Insulin Aspart (Novolog Vial Sliding Scale -) 1 vial SQ Q4HPO [facility] PRN Reason: Protocol Last Admin: 07/25/17 05:51 Dose: Not Given Insulin Detemir (Levemir Vial) 15 units SQ [facility] Methadone HCl (Dolophine -) 10 mg PO ONCE ONE Stop: 07/28/17 10:01 Methadone HCl (Dolophine -) 15 mg PO ONCE@1000 ONE Stop: 07/26/17 10:01 Methadone HCl (Dolophine -) 5 mg PO ONCE ONE Stop: 07/29/17 06:01 Methadone HCl (Dolophine -) 15 mg PO ONCE@1000 ONE Stop: 07/27/17 10:01 Nicotine (Nicoderm Patch -) 21 mg TD DAILY [facility] Last Admin: 07/25/17 10:30 Dose: 21 mg Nicotine Polacrilex (Nicorette Gum -) 2 mg BUC Q2H PRN PRN Reason: NICOTINE REPLACEMENT RX Ondansetron HCl (Zofran Odt -) 8 mg SL Q6H PRN PRN Reason: NAUSEA AND/OR VOMITING Potassium Chloride (K-Dur -) 20 meq PO BID [facility] Last Admin: 07/25/17 10:30 Dose: 20 meq Multivit/Folic Acid/Iron ( Vitamins (Sjr) -) 1 tab PO DAILY [facility] Thiamine HCl (Vitamin B1 -) 100 mg PO HS [facility] Last Admin: 07/24/17 22:41 Dose: 100 mg Zolpidem Tartrate (Ambien -) 10 mg PO HS PRN PRN Reason: INSOMNIA Last Admin: 07/24/17 22:48 Dose: 10 mg - Allergies Allergies: Allergies Allergy/AdvReac Type Severity Reaction Status Date / Time No Known Allergies Allergy Verified 07/23/17 23:11 - Current Living Status Usual Living Arrangement: With Significant Other - Current Mental Status Evaluation Appearance: Disheveled Attitude: Cooperative - Affect Affect: Constrictive Appropriateness: Appropriate to Content - Mood Mood: Euthymic - Speech/Language Expressive: Coherent - Psychomotor Activity Psychomotor Activity: Slowed - Thought Process Thought Process: Intact - Thought Content Hallucinations: Absent Delusions: Absent - Self Perception Self Perception: No Impairment - Cognition Attention: Alert Orientation: Time Memory, Immediate Recall: Intact Memory, Short Term: 3/3 Memory, Remote with Promptin/3 - Concentration Serial Sevens Intact: No Simple Calculations Intact: Yes - Abstraction Proverb Interpretation: Intact Judgement: Intact - Insight Insight: Intact - Impulse Control Impulse Control: Good Control - Suicidal Ideation Suicidal Ideation: No - Homicidal Ideation Homicidal Ideation: No Assessment/Plan 1) Patient has the mental capacity to sign consent for Surgery.
--- NOTE | 2017-07-25 18:38 | PN ---
Progress Note (short form) - Note Progress Note: Patient's HCP (Myla) Phone no: [phone]. HCP agrees for I and D of the abscess, would like to talk with the surgeon regarding risks and benefits of the procedure.
[2017-07-25] MEDS ORDERED: INSULIN (NOVOLOG) ASPART 100 UNITS/ML 10ML VIAL ONE (19:20)
[2017-07-25] MEDS: PRENATAL VITAMINS W/ FOLIC ACID TABLET (FP) PO SCH (19:29)
[2017-07-25] MEDS: THIAMINE HCL 100 MG TABLET (FP) PO SCH (21:14)
[2017-07-25] MEDS: ZOLPIDEM TARTRATE 5 MG TABLET PO PRN (21:18)
[2017-07-25] MEDS: INSULIN DETEMIR 100 UNITS/ML MDV SQ SCH (21:18)
--- NOTE | 2017-07-25 22:51 | PN ---
Progress Note, Physician History of Present Illness: Pt remains lethargic - Current Medication List Current Medications: Active Medications Clonidine (Catapres -) 0.1 mg PO BID [facility] Last Admin: 07/25/17 21:14 Dose: 0.1 mg Cyclobenzaprine HCl (Flexeril -) 10 mg PO TID [facility] Last Admin: 07/25/17 21:15 Dose: 10 mg Diazepam (Valium -) 10 mg PO Q4H PRN PRN Reason: WITHDRAWAL(CONT SUBST) Stop: 07/27/17 10:39 Gabapentin (Neurontin -) 100 mg PO TID [facility] Last Admin: 07/25/17 21:14 Dose: 100 mg Heparin Sodium (Porcine) (Heparin -) 5,000 unit SQ TID [facility] Last Admin: 07/25/17 21:15 Dose: 5,000 unit Vancomycin HCl 1,000 mg/ (Dextrose) 250 mls @ 166.667 mls/hr IVPB BID@0200, 1400 [facility] PRN Reason: Protocol Last Admin: 07/25/17 15:51 Dose: 166.667 mls/hr Potassium Chloride/Sodium Chloride (1/2ns+20meq Kcl) 20 meq in 1,000 mls @ 150 mls/hr IV ASDIR [facility] Last Admin: 07/25/17 00:00 Dose: 150 mls/hr Potassium Chloride/Dextrose/Sod Cl (D5-1/2ns+20 Meq Kcl -) 20 meq in 1,000 mls @ 125 mls/hr IV ASDIR [facility] Last Admin: 07/25/17 06:00 Dose: 125 mls/hr Insulin Aspart (Novolog Vial Sliding Scale -) 1 vial SQ Q4HPO [facility] PRN Reason: Protocol Last Admin: 07/25/17 21:30 Dose: 4 units Insulin Detemir (Levemir Vial) 15 units SQ HS [facility] Last Admin: 07/25/17 21:18 Dose: 15 units Methadone HCl (Dolophine -) 10 mg PO ONCE ONE Stop: 07/28/17 10:01 Methadone HCl (Dolophine -) 15 mg PO ONCE@1000 ONE Stop: 07/26/17 10:01 Methadone HCl (Dolophine -) 5 mg PO ONCE ONE Stop: 07/29/17 06:01 Methadone HCl (Dolophine -) 15 mg PO ONCE@1000 ONE Stop: 07/27/17 10:01 Nicotine (Nicoderm Patch -) 21 mg TD DAILY [facility] Last Admin: 07/25/17 10:30 Dose: 21 mg Nicotine Polacrilex (Nicorette Gum -) 2 mg BUC Q2H PRN PRN Reason: NICOTINE REPLACEMENT RX Ondansetron HCl (Zofran Odt -) 8 mg SL Q6H PRN PRN Reason: NAUSEA AND/OR VOMITING Potassium Chloride (K-Dur -) 20 meq PO BID [facility] Last Admin: 07/25/17 21:14 Dose: 20 meq Multivit/Folic Acid/Iron ( Vitamins (Sjr) -) 1 tab PO DAILY [facility] Last Admin: 07/25/17 19:29 Dose: Not Given Thiamine HCl (Vitamin B1 -) 100 mg PO HS [facility] Last Admin: 07/25/17 21:14 Dose: 100 mg Zolpidem Tartrate (Ambien -) 10 mg PO HS PRN PRN Reason: INSOMNIA Last Admin: 07/25/17 21:18 Dose: 10 mg - Objective Vital Signs: Vital Signs Temperature 99 F 07/25/17 10:00 Pulse Rate 122 H 07/25/17 20:00 Respiratory Rate 22 07/25/17 20:00 Blood Pressure 102/65 07/25/17 20:00 O2 Sat by Pulse Oximetry (%) 100 07/25/17 09:00 HENT: Yes: WNL Neck: Yes: WNL, Supple Cardiovascular: Yes: WNL, Regular Rate and Rhythm Respiratory: Yes: WNL, Regular, CTA Bilaterally Gastrointestinal: Yes: WNL, Normal Bowel Sounds, Soft Extremities: Yes: Other (LUE w/ erythema/induration at injection site) Labs: CBC, BMP 07/25/17 05:10 07/25/17 01:00 INR, PTT INR 1.16 (0.82-1.09) H 07/23/17 23:45 Problem List - Problems (1) Diabetic ketoacidosis Code(s): E13.10 - OTH DIABETES MELLITUS WITH KETOACIDOSIS WITHOUT COMA Qualifiers: Diabetes mellitus type: type 1 Diabetes mellitus complication detail: without coma Qualified Code(s): E10.10 - Type 1 diabetes mellitus with ketoacidosis without coma (2) Sepsis Assessment/Plan: Due to abscess Cont IV antibxs Monitor cultures Awaiting consent for I&D Code(s): A41.9 - SEPSIS, UNSPECIFIED ORGANISM (3) Opioid dependence with withdrawal Code(s): F11.23 - OPIOID DEPENDENCE WITH WITHDRAWAL
[2017-07-25] MEDS: POTASSIUM CHLORIDE 20 MEQ in SODIUM CHLORIDE 0.45% 1,000 ML IVPB SCH (23:55)
[2017-07-26] MEDS: INSULIN SLIDING SCALE (NOVOLOG) 1 VIAL SQ SCH ×6 (02:06→21:30)
[2017-07-26] MEDS: VANCOMYCIN 1,000 MG in DEXTROSE 5%-WATER - 250 ML IVPB SCH (02:07)
[2017-07-26] MEDS: ACETAMINOPHEN 1000 MG/100 ML VIAL (NON FORMULARY) IVPB PRN (02:19)
[2017-07-26] MEDS: POTASSIUM CHLORIDE 20 MEQ in SODIUM CHLORIDE 0.45% 1,000 ML IVPB SCH ×3 (05:47→17:55)
[2017-07-26] MEDS: HEPARIN NA (PORCINE) 5,000 UNITS/ML 1ML VIAL SQ SCH (05:47)
[2017-07-26] MEDS: CYCLOBENZAPRINE HCL 10 MG TABLET (FP) PO SCH ×3 (05:48→21:28)
[2017-07-26] MEDS: GABAPENTIN 100 MG CAPSULE (FP) PO SCH ×3 (05:48→21:27)
[2017-07-26] MEDS ORDERED: DEXTROSE 50%-WATER 25 GM/50 ML DISP.SYRIN IVPUSH ONE (06:05)
[2017-07-26] MEDS ORDERED: DEXTROSE 50%-WATER 25 GM/50 ML DISP.SYRIN ONE ×2 (06:08→09:44)
[2017-07-26 06:45] LABS: HEMATOCRIT 20.5 % (35.4-49); MCH 33.9 pg (25.7-33.7); MCHC 34.3 g/dl (32.0-35.9); MEAN CELL VOLUME 98.9 fl (80-96); MEAN PLT VOLUME 9.2 fl (7.5-11.1); PLATELET COUNT 86 K/MM3 (134-434); RBC 2.08 M/mm3 (4.00-5.60); WHITE BLOOD COUNT 6.8 K/mm3 (4.0-10.0)
[2017-07-26 07:09] LABS: ALBUMIN 1.3 g/dl (3.4-5.0); ANION GAP 6 (8-16); BILIRUBIN,TOTAL 2.7 mg/dL (0.2-1.0); BLOOD UREA NITROGEN 16 mg/dL (7-18); CALCIUM 7.1 mg/dL (8.5-10.1); CHLORIDE 107 mmol/L (98-107); CO2 28 mmol/L (21-32); CREATININE 0.7 mg/dL (0.7-1.3); MAGNESIUM 1.7 mg/dL (1.8-2.4); POTASSIUM 3.5 mmol/L (3.5-5.1); SGOT/AST 221 U/L (15-37); SGPT/ALT 121 U/L (12-78); SODIUM 141 mmol/L (136-145); TOT PROT 4.1 g/dl (6.4-8.2)
[2017-07-26 07:16] LABS: ALK PHOS 238 U/L (45-117)
[2017-07-26 07:17] LABS: INR 1.02 (0.82-1.09); PROTHROMBIN TIME (PATIENT) 11.5 SEC (9.98-11.88)
[2017-07-26 07:43] LABS: GLUCOSE,RANDOM 34 mg/dL (74-106); PHOSPHOROUS 1.1 mg/dL (2.5-4.9)
--- NOTE | 2017-07-26 07:50 | PN ---
Progress Note, Physician Chief Complaint: ID Vancomycin Alert Still 102 - Current Medication List Current Medications: Active Medications Acetaminophen (Ofirmev Injection -) 1,000 mg IVPB Q6H PRN PRN Reason: BACK PAIN Last Admin: 07/26/17 02:19 Dose: 1,000 mg Clonidine (Catapres -) 0.1 mg PO BID [facility] Last Admin: 07/25/17 21:14 Dose: 0.1 mg Cyclobenzaprine HCl (Flexeril -) 10 mg PO TID [facility] Last Admin: 07/26/17 05:48 Dose: 10 mg Diazepam (Valium -) 10 mg PO Q4H PRN PRN Reason: WITHDRAWAL(CONT SUBST) Stop: 07/27/17 10:39 Gabapentin (Neurontin -) 100 mg PO TID [facility] Last Admin: 07/26/17 05:48 Dose: 100 mg Heparin Sodium (Porcine) (Heparin -) 5,000 unit SQ TID [facility] Last Admin: 07/26/17 05:47 Dose: 5,000 unit Vancomycin HCl 1,000 mg/ (Dextrose) 250 mls @ 166.667 mls/hr IVPB BID@0200, 1400 [facility] PRN Reason: Protocol Last Admin: 07/26/17 02:07 Dose: 166.667 mls/hr Potassium Chloride 20 meq/ (Sodium Chloride) 1,010 mls @ 150 mls/hr IVPB Q6H [facility] Last Admin: 07/26/17 05:47 Dose: 150 mls/hr Insulin Aspart (Novolog Vial Sliding Scale -) 1 vial SQ Q4HPO [facility] PRN Reason: Protocol Last Admin: 07/26/17 06:17 Dose: Not Given Insulin Detemir (Levemir Vial) 15 units SQ [facility] Last Admin: 07/25/17 21:18 Dose: 15 units Methadone HCl (Dolophine -) 10 mg PO ONCE ONE Stop: 07/28/17 10:01 Methadone HCl (Dolophine -) 15 mg PO ONCE@1000 ONE Stop: 07/26/17 10:01 Methadone HCl (Dolophine -) 5 mg PO ONCE ONE Stop: 07/29/17 06:01 Methadone HCl (Dolophine -) 15 mg PO ONCE@1000 ONE Stop: 07/27/17 10:01 Nicotine (Nicoderm Patch -) 21 mg TD DAILY [facility] Last Admin: 07/25/17 10:30 Dose: 21 mg Nicotine Polacrilex (Nicorette Gum -) 2 mg BUC Q2H PRN PRN Reason: NICOTINE REPLACEMENT RX Ondansetron HCl (Zofran Odt -) 8 mg SL Q6H PRN PRN Reason: NAUSEA AND/OR VOMITING Potassium Chloride (K-Dur -) 20 meq PO BID [facility] Last Admin: 07/25/17 21:14 Dose: 20 meq Multivit/Folic Acid/Iron ( Vitamins (Sjr) -) 1 tab PO DAILY [facility] Last Admin: 07/25/17 19:29 Dose: Not Given Thiamine HCl (Vitamin B1 -) 100 mg PO HS [facility] Last Admin: 07/25/17 21:14 Dose: 100 mg Zolpidem Tartrate (Ambien -) 10 mg PO HS PRN PRN Reason: INSOMNIA Last Admin: 07/25/17 21:18 Dose: 10 mg - Objective Vital Signs: Vital Signs Temperature 98.4 F 07/26/17 04:00 Pulse Rate 111 H 07/26/17 06:00 Respiratory Rate 17 07/26/17 06:00 Blood Pressure 98/42 07/26/17 06:00 O2 Sat by Pulse Oximetry (%) 100 07/26/17 00:20 Neck: Yes: WNL, Supple Cardiovascular: Yes: S1, S2. No: Murmur Respiratory: Yes: WNL, Regular, CTA Bilaterally Gastrointestinal: Yes: WNL, Normal Bowel Sounds, Soft. No: Tenderness Edema: Yes (left arm with drainage) Labs: CBC, BMP 07/26/17 05:55 INR, PTT INR 1.02 (0.82-1.09) 07/26/17 05:55 Assessment/Plan Microbiology 07/24/17 00:00 Urine - Urine Clean Catch Urine Culture - Preliminary Staphylococcus Latex Coag Pos 07/23/17 23:35 Blood - Peripheral Venous Blood Culture - Preliminary Presumptive Mrsa (Pbp2a Pos) Pending Organism 07/23/17 23:35 Blood - Peripheral Venous Blood Culture - Preliminary Presumptive Mrsa (Pbp2a Pos) Pending Organism Laboratory Tests 07/24/17 07/25/17 07/26/17 00:00 05:10 05:55 WBC Hgb Hct Plt Count ESR 111 H BUN 16 Creatinine 0.7 D Total Bilirubin 2.7 H D AST 221 H D ALT 121 H Alkaline Phosphatase 238 H D Albumin 1.3 L D Urine WBC (Auto) 18 Urine RBC (Auto) 5 07/26/17 05:55 WBC 6.8 Hgb 7.0 L Hct 20.5 L Plt Count 86 L D ESR BUN Creatinine Total Bilirubin AST ALT Alkaline Phosphatase Albumin Urine WBC (Auto) Urine RBC (Auto) Assessment MRSA bacteremia secondary IVDA Abscess left arm suppurative thrombophlebitis Pancytopenia severe anemia ?? Hepatitis C hepatomegaly ?cirrhosis Plan For I&D today infected vein as per surgery Increase Vancomycin to get trough to 15-20 Repeat the blood cultures tomorrow after surgery today Strongly suggest hematology evaluation for pancytopenia Await final cultures ?THEA value 2 May need to switch therapy Dapto Ceftaroline combination Critical care time spent today 35minutes Bob SANDERSON
--- NOTE | 2017-07-26 07:54 | PN ---
Progress Note, Physician Chief Complaint: IVDA with left arm cellulitis and infected thrombophlebitis History of Present Illness: 21yo LHD male PMH type 1 DM, current IV heroin user, Hepatitis C presented with altered mental status and generalized weakness. He remembers being dropped off in the ER. He remains lethargic. Evaluated by psychiatry and appraised to be capable of giving consent. - Current Medication List Current Medications: Active Medications Acetaminophen (Ofirmev Injection -) 1,000 mg IVPB Q6H PRN PRN Reason: BACK PAIN Last Admin: 07/26/17 02:19 Dose: 1,000 mg Clonidine (Catapres -) 0.1 mg PO BID [facility] Last Admin: 07/25/17 21:14 Dose: 0.1 mg Cyclobenzaprine HCl (Flexeril -) 10 mg PO TID [facility] Last Admin: 07/26/17 05:48 Dose: 10 mg Diazepam (Valium -) 10 mg PO Q4H PRN PRN Reason: WITHDRAWAL(CONT SUBST) Stop: 07/27/17 10:39 Gabapentin (Neurontin -) 100 mg PO TID [facility] Last Admin: 07/26/17 05:48 Dose: 100 mg Heparin Sodium (Porcine) (Heparin -) 5,000 unit SQ TID [facility] Last Admin: 07/26/17 05:47 Dose: 5,000 unit Vancomycin HCl 1,000 mg/ (Dextrose) 250 mls @ 166.667 mls/hr IVPB BID@0200, 1400 [facility] PRN Reason: Protocol Last Admin: 07/26/17 02:07 Dose: 166.667 mls/hr Potassium Chloride 20 meq/ (Sodium Chloride) 1,010 mls @ 150 mls/hr IVPB Q6H [facility] Last Admin: 07/26/17 05:47 Dose: 150 mls/hr Insulin Aspart (Novolog Vial Sliding Scale -) 1 vial SQ Q4HPO [facility] PRN Reason: Protocol Last Admin: 07/26/17 06:17 Dose: Not Given Insulin Detemir (Levemir Vial) 15 units SQ [facility] Last Admin: 07/25/17 21:18 Dose: 15 units Methadone HCl (Dolophine -) 10 mg PO ONCE ONE Stop: 07/28/17 10:01 Methadone HCl (Dolophine -) 15 mg PO ONCE@1000 ONE Stop: 07/26/17 10:01 Methadone HCl (Dolophine -) 5 mg PO ONCE ONE Stop: 07/29/17 06:01 Methadone HCl (Dolophine -) 15 mg PO ONCE@1000 ONE Stop: 07/27/17 10:01 Nicotine (Nicoderm Patch -) 21 mg TD DAILY [facility] Last Admin: 07/25/17 10:30 Dose: 21 mg Nicotine Polacrilex (Nicorette Gum -) 2 mg BUC Q2H PRN PRN Reason: NICOTINE REPLACEMENT RX Ondansetron HCl (Zofran Odt -) 8 mg SL Q6H PRN PRN Reason: NAUSEA AND/OR VOMITING Potassium Chloride (K-Dur -) 20 meq PO BID [facility] Last Admin: 07/25/17 21:14 Dose: 20 meq Multivit/Folic Acid/Iron ( Vitamins (Sjr) -) 1 tab PO DAILY [facility] Last Admin: 07/25/17 19:29 Dose: Not Given Thiamine HCl (Vitamin B1 -) 100 mg PO HS [facility] Last Admin: 07/25/17 21:14 Dose: 100 mg Zolpidem Tartrate (Ambien -) 10 mg PO HS PRN PRN Reason: INSOMNIA Last Admin: 07/25/17 21:18 Dose: 10 mg - Objective Vital Signs: Vital Signs Temperature 98.4 F 07/26/17 04:00 Pulse Rate 111 H 07/26/17 06:00 Respiratory Rate 17 07/26/17 06:00 Blood Pressure 98/42 07/26/17 06:00 O2 Sat by Pulse Oximetry (%) 100 07/26/17 00:20 Constitutional: Yes: No Distress, Calm. No: Thin Eyes: Yes: Conjunctiva Clear, EOM Intact HENT: Yes: Atraumatic, Normocephalic Neck: Yes: Supple, Trachea Midline Cardiovascular: Yes: Regular Rate and Rhythm, S1, S2. No: Murmur Respiratory: Yes: Regular, CTA Bilaterally Gastrointestinal: Yes: Normal Bowel Sounds, Soft. No: Tenderness Extremities: Yes: Erythema. No: Cool, Cyanosis Edema: Yes Edema: LUE: 3+ Integumentary: Yes: Erythema (Left volar forearm punctum draining purulent) Neurological: Yes: Alert, Oriented Psychiatric: Yes: Alert, Oriented Labs: CBC, BMP 07/26/17 05:55 07/26/17 05:55 INR, PTT INR 1.02 (0.82-1.09) 07/26/17 05:55 Problem List - Problems (1) Thrombophlebitis arm Assessment/Plan: 21 yo LHD male with DM type 1 in DKA with aggressive left forearm cellulitis, thrombophlebitis, and draining abscess at the site of infecting IV drugs. There is no sign of compartment syndrome at present. Patient is oriented but remains lethargic consent was explained. He needs and Incision and drainage of left forearm injection site. NPO and IVF hydration broad spectrum IV antibiotics trend labs glycemic control correct electrolytes left arm elevation above heart level I discussed with patient risks, benefits and alternatives of incision and drainge of left forearm abscess including but not limited to bleeding, worsening infection, compartment syndrome, injury to adjacent structures, loss of function dominant hand, ischemia requiring amputation, need for further procedures, ; alternatives include antibiotics, delayed or no surgery - risks of this include failure of nonoperative therapy, sepsis, recurrence, . Patient desires to proceed with operation - will take to OR for above. Informed consent which was acknowledged by patient and witnessed by RN but could not be signed was placed on the chart. Code(s): I80.8 - PHLEBITIS AND THROMBOPHLEBITIS OF OTHER SITES (2) Abscess of forearm Code(s): L02.419 - CUTANEOUS ABSCESS OF LIMB, UNSPECIFIED (3) Opioid dependence with withdrawal Code(s): F11.23 - OPIOID DEPENDENCE WITH WITHDRAWAL (4) Diabetes Code(s): E11.9 - TYPE 2 DIABETES MELLITUS WITHOUT COMPLICATIONS Qualifiers: Qualified Code(s): E10.9 - Type 1 diabetes mellitus without complications
[2017-07-26] MEDS ORDERED: NAPH,MB-DB/K PH,MBDB POWDER PACKET PO ONE (07:59)
[2017-07-26] MEDS ORDERED: MAGNESIUM SULF 50% (8.12 MEQ/2 ML-1 GM VIAL) IVPB ONE (08:02)
[2017-07-26] MEDS ORDERED: HEMOQUE TEST 1 EACH EACH ONE (08:02)
[2017-07-26] MEDS ORDERED: POTASSIUM PHOSPHATE 40 MM in SODIUM CHLORIDE 250 ML IVPB ONE (08:22)
--- NOTE | 2017-07-26 09:09 | PN ---
Physical Exam: Medicine Coverage for Dr. Goodwin SUBJECTIVE: Patient seen and examined in ICU. Pt is awake, conversational, feels feeling better than yesterday. Denies fever, chills, feels weak, denies abd pain. Events: - Tmax 102.1 - Glucose 34 - Hgb 7 - Large melanotic BM during assessment - Guiac stool sent - 2units packed cells ordered - Hypotensive MAP 56 s/p 500cc MAP 69 OBJECTIVE: Vital Signs Period Temp Pulse Resp BP Sys/Nolan Pulse Ox Last 24 Hr 98.4 F-102.1 F 111-137 17-26 92-121/42-81 100 PE Neuro: lethargic but awake, alert, oriented to person, place Pulm: clear anteriorly CV: s1 s2 tachycardia Abd: s nt nd + bs Ext: LUE erythema and induration extends from wrist to proximal AC, abscess Laboratory Results - last 24 hr 07/26/17 07/26/17 07/26/17 01:09 05:55 05:55 WBC 6.8 RBC 2.08 L Hgb 7.0 L Hct 20.5 L MCV 98.9 H MCH 33.9 H MCHC 34.3 RDW 16.0 H Plt Count 86 L D MPV 9.2 ESR PT with INR INR VBG pH POC VBG pCO2 POC VBG pO2 Mixed VBG HCO3 Sodium 141 Potassium 3.5 Chloride 107 Carbon Dioxide 28 Anion Gap 6 L BUN 16 Creatinine 0.7 D Creat Clearance w eGFR > 60 POC Glucometer 182.80144 Random Glucose 34 L* Lactic Acid Calcium 7.1 L Phosphorus 1.1 L* D Magnesium 1.7 L Total Bilirubin 2.7 H D AST 221 H D ALT 121 H Alkaline Phosphatase 238 H D Creatine Kinase 26 L Troponin I 0.20 H D Total Protein 4.1 L Albumin 1.3 L D Vancomycin Pre-Dose Blood Type Antibody Screen Crossmatch 07/25/17 07/25/17 05:10 13:29 ESR 111 H Vancomycin Pre-Dose 12.882 H Generic Name Dose Route Start Last Admin Trade Name Freq PRN Reason Stop Dose Admin Acetaminophen 1,000 mg 07/26/17 02:04 07/26/17 02:19 Ofirmev Injection - IVPB 1,000 mg Q6H PRN Administration BACK PAIN Clonidine 0.1 mg 07/24/17 22:00 07/25/17 21:14 Catapres - PO 0.1 mg BID ROBIN Administration Cyclobenzaprine HCl 10 mg 07/24/17 22:00 07/26/17 05:48 Flexeril - PO 10 mg TID ROBIN Administration Diazepam 10 mg 07/24/17 10:40 Valium - PO 07/27/17 10:39 Q4H PRN WITHDRAWAL(CONT SUBST) Gabapentin 100 mg 07/24/17 22:00 07/26/17 05:48 Neurontin - PO 100 mg TID ROBIN Administration Heparin Sodium (Porcine) 5,000 unit 07/24/17 14:00 07/26/17 05:47 Heparin - SQ 5,000 unit TID ROBIN Administration Potassium Chloride 20 meq/ 1,010 mls @ 150 mls/hr 07/25/17 23:45 07/26/17 05: 47 Sodium Chloride IVPB 150 mls/hr Q6H ROBIN Administration Vancomycin HCl 1,250 mg/ 250 mls @ 166.667 mls/hr 07/26/17 14:00 Dextrose IVPB BID@0200,1400 [facility] Protocol Potassium Phosphate 40 mm/ 513.3333 mls @ 64.16 mls/hr 07/26/17 10:00 Sodium Chloride IVPB 07/26/17 18:00 ONCE ONE 40 MM/8 HR Magnesium Sulfate/Dextrose 1 gm in 100 mls @ 200 mls/hr 07/26/17 10:00 Magnesium 1gm/D5w - IVPB 07/26/17 10:29 ONCE ONE Insulin Aspart 1 vial 07/24/17 23:45 07/26/17 06:17 Novolog Vial Sliding Scale - SQ Not Given Q4HPO [facility] Protocol Insulin Detemir 15 units 07/25/17 22:00 07/25/17 21:18 Levemir Vial SQ 15 units HS [facility] Administration Magnesium Sulfate 1 gm 07/26/17 08:32 Magnesium Sulfate IVPB 07/26/17 08:33 ONCE ONE Methadone HCl 10 mg 07/28/17 10:00 Dolophine - PO 07/28/17 10:01 ONCE ONE Methadone HCl 15 mg 07/26/17 10:00 Dolophine - PO 07/26/17 10:01 ONCE@1000 ONE Methadone HCl 5 mg 07/29/17 06:00 Dolophine - PO 07/29/17 06:01 ONCE ONE Methadone HCl 15 mg 07/27/17 10:00 Dolophine - PO 07/27/17 10:01 ONCE@1000 ONE Nicotine 21 mg 07/24/17 18:05 07/25/17 10:30 Nicoderm Patch - TD 21 mg DAILY [facility] Administration Nicotine Polacrilex 2 mg 07/24/17 10:44 Nicorette Gum - BUC Q2H PRN NICOTINE REPLACEMENT RX Ondansetron HCl 8 mg 07/24/17 18:04 Zofran Odt - SL Q6H PRN NAUSEA AND/OR VOMITING Multivit/Folic Acid/Iron 1 tab 07/25/17 10:00 07/25/17 19:29 Vitamins (Sjr) - PO Not Given DAILY ROBIN Thiamine HCl 100 mg 07/24/17 22:00 07/25/17 21:14 Vitamin B1 - PO 100 mg HS [facility]IN Administration Microbiology 07/23/17 23:35 Blood Culture - Preliminary Blood - Peripheral Venous Presumptive Mrsa (Pbp2a Pos) Pending Organism 07/24/17 00:00 Urine Culture - Preliminary Urine - Urine Clean Catch Staphylococcus Latex Coag Pos 07/23/17 23:35 Blood Culture - Preliminary Blood - Peripheral Venous Presumptive Mrsa (Pbp2a Pos) Pending Organism Assessment: 21 year old male with PMHx type 1 DM, current IV heroin user on methadone (including methamphetamines, opioid and heroin abuse, on methadone), Hepatitis C admitted with AMS, generalized weakness. In ED pt with sepsis and DKA and LUE cellulitis. Plan: 1. Septic shock due to MRSA bacteremia - Continue IV fluid bolus - Repeat blood cx pending - For OR I&D at 11am - Continue vanco dose for levels 15-20 2. r/o lower GI bleed - Awaiting guiac stool - 2units prbcs ordered - Stop Heparin - Start protonix 40mg BID IVP 3. Acute blood loss anemia - Differential dx: GI bleed, sepsis with consumption - Transfuse 2uprbcs - Send iron studies 4. Electrolyte disarray Hypophosphatemia - Replete 40mmol IVPB now Hypomagnesemia - Replete 2gm mg x1 now Hypocalcemia - Corrected ~9 5. Pancytopenia - Possible due to sepsis vs DIC however coags are normal, HUS/TTP however renal fxn normal - Will send Fibrinogen, D dimer, PTT 6. Type 1 DM - Now with Hypoglycemia - Amp of D50 x2 given - Levemir 15units HS, give half dose tonight if not eating 7. DKA - Resolved 8. Substance abuse - On methadone detox - Clonidine 0.1mg BID - Valium prn Visit type - Emergency Visit Emergency Visit: Yes ED Registration Date: 07/24/17 Care time: The patient presented to the Emergency Department on the above date and was hospitalized for further evaluation of their emergent condition. - New Patient This patient is new to me today: Yes Date on this admission: 07/26/17 - Critical Care Critical Care patient: Yes Total Critical Care Time (in minutes): 40 Critical Care Statement: The care of this patient involved high complexity decision making to prevent further life threatening deterioration of the patient 's condition and/or to evaluate & treat vital organ system(s) failure or risk of failure.
[2017-07-26] MEDS ORDERED: MAGNESIUM 2GM/50ML STERILE WATER IVPB IVPB ONE (09:15)
[2017-07-26 09:17] LABS: ALBUMIN 1.4 g/dl (3.4-5.0); BILIRUBIN,DIRECT 1.2 mg/dL (0.0-0.2); BILIRUBIN,TOTAL 1.9 mg/dL (0.2-1.0); TOT PROT 4.2 g/dl (6.4-8.2)
[2017-07-26] MEDS ORDERED: SODIUM CHLORIDE 1,000 ML IV STA (09:58)
[2017-07-26] MEDS ORDERED: METHADONE HCL 5 MG TABLET PO ONE ×2 (10:00)
[2017-07-26] MEDS: NICOTINE 21 MG/24 HOURS TOPICAL PATCH TD SCH (10:00)
[2017-07-26] MEDS ORDERED: POTASSIUM PHOSPHATE 40 MM in SODIUM CHLORIDE 500 ML IVPB ONE (10:00)
[2017-07-26] MEDS: PRENATAL VITAMINS W/ FOLIC ACID TABLET (FP) PO SCH (10:00)
[2017-07-26] MEDS ORDERED: MAGNESIUM 1GM/D5W - 1 GM/100 ML IVPB IVPB ONE (10:00)
[2017-07-26] MEDS: cloNIDine HCL 0.1 MG TABLET PO SCH ×2 (10:00→21:27)
[2017-07-26] MEDS ORDERED: DEXTROSE 50%-WATER - 25 GM/50 ML VIAL IVPUSH ONE (10:45)
[2017-07-26] MEDS ORDERED: PANTOPRAZOLE SODIUM 40 MG VIAL IVPUSH SCH (10:45)
[2017-07-26] MEDS ORDERED: NOREPINEPHRINE BITARTRATE 4 MG/4 ML ML IV ONE (10:54)
[2017-07-26] MEDS ORDERED: NOREPINEPHRINE BITARTRATE 8,000 MCG in DEXTROSE 5%-WATER - 492 ML IV SCH (11:00)
[2017-07-26] MEDS ORDERED: VANCOMYCIN 1,000 MG VIAL (RESTRICTED TO ID ONLY) IVPB ONE (12:20)
--- NOTE | 2017-07-26 12:37 | PN ---
Teaching Attending Note Name of Resident: Arlette Baez ATTENDING PHYSICIAN STATEMENT I saw and evaluated the patient. I reviewed the resident's note and discussed the case with the resident. I agree with the resident's findings and plan as documented. SUBJECTIVE: Pt seen and examined in the ICU. Febrile, dark melanotic stool overnight. Going to OR for exploration today. OBJECTIVE: Last Vital Signs Temp Pulse Resp BP Pulse Ox 98.2 F 95 H 22 116/67 100 07/26/17 10:00 07/26/17 11:57 07/26/17 11:57 07/26/17 11:57 07/26/17 00:20 Intake & Output 07/23/17 07/24/17 07/25/17 07/26/17 23:59 23:59 23:59 23:59 Intake Total 1350 3625 1625 Output Total 5800 4000 725 Balance -4450 -375 900 Weight 52.163 kg 59.879 kg 59.33 kg 64.3 kg Gen: more alert, awake Heart: RRR Lung: decreased breath sounds at the bases Abd: soft, nontender Ext: LUE edematous, erythematous with purulent drainage, pulses intact CBC, BMP 07/26/17 05:55 07/26/17 05:55 Active Medications Acetaminophen (Ofirmev Injection -) 1,000 mg IVPB Q6H PRN PRN Reason: BACK PAIN Last Admin: 07/26/17 02:19 Dose: 1,000 mg Clonidine (Catapres -) 0.1 mg PO BID [facility] Last Admin: 07/26/17 10:00 Dose: Not Given Cyclobenzaprine HCl (Flexeril -) 10 mg PO TID [facility] Last Admin: 07/26/17 05:48 Dose: 10 mg Diazepam (Valium -) 10 mg PO Q4H PRN PRN Reason: WITHDRAWAL(CONT SUBST) Stop: 07/27/17 10:39 Gabapentin (Neurontin -) 100 mg PO TID [facility] Last Admin: 07/26/17 05:48 Dose: 100 mg Potassium Chloride 20 meq/ (Sodium Chloride) 1,010 mls @ 150 mls/hr IVPB Q6H [facility] Last Admin: 07/26/17 12:10 Dose: Not Given Potassium Phosphate 40 mm/ (Sodium Chloride) 513.3333 mls @ 64.16 mls/hr IVPB ONCE ONE PRN Reason: 40 MM/8 HR Stop: 07/26/17 18:00 Last Admin: 07/26/17 11:42 Dose: 64.16 mls/hr Norepinephrine Bitartrate 8, (000 mcg/ Dextrose) 500 mls @ 18.75 mls/hr IV TITR ROBIN; 5 MCG/MIN PRN Reason: Protocol Vancomycin HCl 1,250 mg/ (Dextrose) 250 mls @ 166.667 mls/hr IVPB BID@0200, 1400 [facility] PRN Reason: Protocol Insulin Aspart (Novolog Vial Sliding Scale -) 1 vial SQ Q4HPO [facility] PRN Reason: Protocol Last Admin: 07/26/17 11:42 Dose: Not Given Insulin Detemir (Levemir Vial) 15 units SQ [facility] Last Admin: 07/25/17 21:18 Dose: 15 units Methadone HCl (Dolophine -) 10 mg PO ONCE ONE Stop: 07/28/17 10:01 Methadone HCl (Dolophine -) 5 mg PO ONCE ONE Stop: 07/29/17 06:01 Methadone HCl (Dolophine -) 15 mg PO ONCE@1000 ONE Stop: 07/27/17 10:01 Nicotine (Nicoderm Patch -) 21 mg TD DAILY [facility] Last Admin: 07/26/17 10:00 Dose: Not Given Nicotine Polacrilex (Nicorette Gum -) 2 mg BUC Q2H PRN PRN Reason: NICOTINE REPLACEMENT RX Ondansetron HCl (Zofran Odt -) 8 mg SL Q6H PRN PRN Reason: NAUSEA AND/OR VOMITING Pantoprazole Sodium (Protonix Iv) 40 mg IVPUSH BID [facility] Last Admin: 07/26/17 11:54 Dose: 40 mg Multivit/Folic Acid/Iron ( Vitamins (Sjr) -) 1 tab PO DAILY [facility] Last Admin: 07/26/17 10:00 Dose: Not Given Thiamine HCl (Vitamin B1 -) 100 mg PO HS [facility] Last Admin: 07/25/17 21:14 Dose: 100 mg ASSESSMENT AND PLAN: Diabetic Ketoacidosis improving LUE Abscess Gram Positive Bacteremia Septic Shock Thrombocytopenia Acute Kidney Injury improving Lactic Acidosis +Troponins likely Demand Ischemia Elevated LFTs Metabolic Derangements IVDU/Polysubstance Abuse Anemia - continue IVF - monitor BGM, BMP - replete lytes - IV antibiotics including vanco, monitor levels - f/u cultures - monitor urine output, creatinine - trend lactate, cardiac enzymes, LFTs until downtrending - transfuse PRBC - monitor H/H - protonix - GI for endoscopy - continue detox - continue ICU monitoring critical care time spent in reviewing chart, evaluating patient and formulating plan 35min
[2017-07-26] MEDS ORDERED: fentaNYL CITRATE 250 MCG/5 ML VIAL ONE (12:41)
[2017-07-26] MEDS ORDERED: PROPOFOL 20 ML ONE ×4 (12:43)
[2017-07-26] MEDS ORDERED: LIDOCAINE HCL/PF 2% SDV 5ML VIAL ONE (12:53)
--- NOTE | 2017-07-26 13:22 | CON.GI ---
Consult Consult Specialty:: GI Reason for Consultation:: melena, anemia - History of Present Illness History of Present Illness: Chart reviewed, events noted Pt is a 21yo M with a PMHx of DM1, Active heroin user, Hep C who presented to the ER with altered mental status and generalized weakness. He remembers being dropped off in the ER. Discloses using heroin 12 hours ago. In the ER he was given Narcan x2 and IVF. Labs were notable for diabetic ketoacidosis. Patient admits to noncompliance with insulin. Initial AG was 29, patient was started on insulin ggt. Dose of Vanc/Zosyn was given. While in the ICU, the patient continues to complain of generalized weakness and diffuse body pain. Denies fevers, chills. Denies cough, CP, SOB. Pt also has edematous L arm with abscess at site of injection. GI service was called this morning for evaluation after the pt was noted to pass a large, melanotic stool. His Hgb was noted to be 7 g/dl. On admission it was 9.9. No hematemeis, hematochezia noted. He was hypotensive and somnolent at the time of this evaluation. He reports no prior history of gastrointersitnal bleeding, ulcers. He reported no dysphagia, odynophagia, abdominal pain, or dyspepsia. He received 2 u of PRBC this morning. - History Source History Provided By: Patient, Medical Record - Past Medical History Infectious Disease: Yes: Other (HEP C) Psych: Yes: Addictions Endocrine: Yes: Diabetes Mellitus Additional Medical History: polysubstance use - Alcohol/Substance Use Hx Alcohol Use: No History of Substance Use: reports: Cocaine, Heroin, Marijuana - Smoking History Smoking history: Unknown if ever smoked Have you smoked in the past 12 months: Yes Aproximately how many cigarettes per day: 20 - Social History Usual Living Arrangement: With Significant Other ADL: Independent Home Medications - Allergies Allergies/Adverse Reactions: Allergies Allergy/AdvReac Type Severity Reaction Status Date / Time No Known Allergies Allergy Verified 07/23/17 23:11 - Home Medications Home Medications: Ambulatory Orders Insulin Aspart [Novolog] 100 unit SQ ASDIR 07/01/15 Insulin Glargine,Hum.rec.anlog [Lantus Solostar PEN (NF)] 30 units SQ HS Family Disease History - Family Disease History Family Disease History: Other: Father (healthy), Mother (healthy), Brother (IDDM ) Review of Systems Findings/Remarks: As per HPI, H&P Physical Exam-GI Vital Signs: Vital Signs Temperature 98.2 F 07/26/17 10:00 Pulse Rate 95 H 07/26/17 11:57 Respiratory Rate 22 07/26/17 11:57 Blood Pressure 116/67 07/26/17 11:57 O2 Sat by Pulse Oximetry (%) 100 07/26/17 00:20 Constitutional: Yes: Cachectic, Pallor, Thin Eyes: Yes: Conjunctiva Clear Neck: Yes: Other (IJ) Cardiovascular: Yes: Regular Rate and Rhythm Respiratory: Yes: Regular Neurological: Yes: Alert, Oriented, Lethargy Labs: CBC, BMP 07/26/17 05:55 07/26/17 05:55 INR, PTT INR 1.02 (0.82-1.09) 07/26/17 05:55 CBCD WBC 6.8 K/mm3 (4.0-10.0) 07/26/17 05:55 RBC 2.08 M/mm3 (4.00-5.60) L 07/26/17 05:55 Hgb 7.0 GM/dL (11.7-16.9) L 07/26/17 05:55 Hct 20.5 % (35.4-49) L 07/26/17 05:55 MCV 98.9 fl (80-96) H 07/26/17 05:55 MCHC 34.3 g/dl (32.0-35.9) 07/26/17 05:55 RDW 16.0 % (11.9-15.9) H 07/26/17 05:55 Plt Count 86 K/MM3 (134-434) L D 07/26/17 05:55 MPV 9.2 fl (7.5-11.1) 07/26/17 05:55 CMP Sodium 141 mmol/L (136-145) 07/26/17 05:55 Potassium 3.5 mmol/L (3.5-5.1) 07/26/17 05:55 Chloride 107 mmol/L (98-107) 07/26/17 05:55 Carbon Dioxide 28 mmol/L (21-32) 07/26/17 05:55 Anion Gap 6 (8-16) L 07/26/17 05:55 BUN 16 mg/dL (7-18) 07/26/17 05:55 Creatinine 0.7 mg/dL (0.7-1.3) D 07/26/17 05:55 Creat Clearance w eGFR > 60 (>60) 07/26/17 05:55 Calcium 7.1 mg/dL (8.5-10.1) L 07/26/17 05:55 Total Bilirubin 2.7 mg/dL (0.2-1.0) H D 07/26/17 05:55 AST 221 U/L (15-37) H 07/26/17 05:55 ALT 121 U/L (12-78) H 07/26/17 05:55 Alkaline Phosphatase 238 U/L (45-117) H 07/26/17 05:55 Total Protein 4.1 g/dl (6.4-8.2) L 07/26/17 05:55 Albumin 1.3 g/dl (3.4-5.0) L 07/26/17 05:55 Abnormal Lab Results 07/23/17 07/23/17 07/23/17 23:45 23:45 23:45 RBC Hgb Hct MCV MCH RDW Plt Count POC VBG pCO2 31.0 L POC VBG pO2 23.0 L Mixed VBG HCO3 15.4 L Anion Gap Random Glucose Lactic Acid 13.9 H* Calcium Phosphorus Magnesium Total Bilirubin Direct Bilirubin AST ALT Alkaline Phosphatase Creatine Kinase Troponin I Total Protein Albumin Vancomycin Pre-Dose Crossmatch See Detail 07/25/17 07/25/17 07/26/17 12:00 13:29 05:55 RBC Hgb Hct MCV MCH RDW Plt Count POC VBG pCO2 POC VBG pO2 Mixed VBG HCO3 Anion Gap 6 L Random Glucose 34 L* Lactic Acid Calcium 7.1 L Phosphorus 1.1 L* D Magnesium 1.7 L Total Bilirubin 1.9 H D 2.7 H D Direct Bilirubin 1.2 H D AST 226 H D 221 H ALT 123 H 121 H Alkaline Phosphatase 225 H 238 H Creatine Kinase 26 L Troponin I 0.20 H D 0.20 H Total Protein 4.2 L 4.1 L Albumin 1.4 L 1.3 L Vancomycin Pre-Dose 12.882 H Crossmatch 07/26/17 07/26/17 05:55 08:00 RBC 2.08 L Hgb 7.0 L Hct 20.5 L MCV 98.9 H MCH 33.9 H RDW 16.0 H Plt Count 86 L D POC VBG pCO2 POC VBG pO2 Mixed VBG HCO3 Anion Gap Random Glucose Lactic Acid Calcium Phosphorus Magnesium Total Bilirubin Direct Bilirubin AST ALT Alkaline Phosphatase Creatine Kinase Troponin I Total Protein Albumin Vancomycin Pre-Dose Crossmatch See Detail Imaging - Results Ultrasound: Report Reviewed Assessment/Plan An urgent EGD in OR was performed and found grade 4 esophagitis consistent with trush in distal 2/3 of the esophagus. Multiple biopsies were taken, The 2nd portion of the duodenum, duodenal bulb, total stomach revealed no abnormalities. Retroflextion revealed no abnormalities. Random gastric mucosal biopsies were taken. Fluconazole po Carafate PPI Soft diet Please note. I will be away from 07/27/17 to 08/06/17. Dr. Benitez Rodarte will be covering for me in my absence.
[2017-07-26] MEDS ORDERED: LIDOCAINE HCL 1%, 10 MG/ML (20ML VIAL) INF ONE (13:26)
--- NOTE | 2017-07-26 13:30 | PN ---
Progress Note, Physician History of Present Illness: Feels better, less tired, but arm still in pain. Needed D50 push x1 after hypoglycemia this AM. Psych evaluated, deemed competent NPO since midnight for OR today - Current Medication List Current Medications: Active Medications Acetaminophen (Ofirmev Injection -) 1,000 mg IVPB Q6H PRN PRN Reason: BACK PAIN Last Admin: 07/26/17 02:19 Dose: 1,000 mg Clonidine (Catapres -) 0.1 mg PO BID [facility] Last Admin: 07/26/17 10:00 Dose: Not Given Cyclobenzaprine HCl (Flexeril -) 10 mg PO TID [facility] Last Admin: 07/26/17 05:48 Dose: 10 mg Diazepam (Valium -) 10 mg PO Q4H PRN PRN Reason: WITHDRAWAL(CONT SUBST) Stop: 07/27/17 10:39 Gabapentin (Neurontin -) 100 mg PO TID [facility] Last Admin: 07/26/17 05:48 Dose: 100 mg Potassium Chloride 20 meq/ (Sodium Chloride) 1,010 mls @ 150 mls/hr IVPB Q6H [facility] Last Admin: 07/26/17 12:10 Dose: Not Given Potassium Phosphate 40 mm/ (Sodium Chloride) 513.3333 mls @ 64.16 mls/hr IVPB ONCE ONE PRN Reason: 40 MM/8 HR Stop: 07/26/17 18:00 Last Admin: 07/26/17 11:42 Dose: 64.16 mls/hr Norepinephrine Bitartrate 8, (000 mcg/ Dextrose) 500 mls @ 18.75 mls/hr IV TITR ROBIN; 5 MCG/MIN PRN Reason: Protocol Vancomycin HCl 1,250 mg/ (Dextrose) 250 mls @ 166.667 mls/hr IVPB BID@0200, 1400 ROBIN PRN Reason: Protocol Insulin Aspart (Novolog Vial Sliding Scale -) 1 vial SQ Q4HPO [facility] PRN Reason: Protocol Last Admin: 07/26/17 11:42 Dose: Not Given Insulin Detemir (Levemir Vial) 15 units SQ HS [facility] Last Admin: 07/25/17 21:18 Dose: 15 units Methadone HCl (Dolophine -) 10 mg PO ONCE ONE Stop: 07/28/17 10:01 Methadone HCl (Dolophine -) 5 mg PO ONCE ONE Stop: 07/29/17 06:01 Methadone HCl (Dolophine -) 15 mg PO ONCE@1000 ONE Stop: 07/27/17 10:01 Nicotine (Nicoderm Patch -) 21 mg TD DAILY [facility] Last Admin: 07/26/17 10:00 Dose: Not Given Nicotine Polacrilex (Nicorette Gum -) 2 mg BUC Q2H PRN PRN Reason: NICOTINE REPLACEMENT RX Ondansetron HCl (Zofran Odt -) 8 mg SL Q6H PRN PRN Reason: NAUSEA AND/OR VOMITING Pantoprazole Sodium (Protonix Iv) 40 mg IVPUSH BID [facility] Last Admin: 07/26/17 11:54 Dose: 40 mg Multivit/Folic Acid/Iron ( Vitamins (Sjr) -) 1 tab PO DAILY [facility] Last Admin: 07/26/17 10:00 Dose: Not Given Thiamine HCl (Vitamin B1 -) 100 mg PO HS [facility] Last Admin: 07/25/17 21:14 Dose: 100 mg - Objective Vital Signs: Vital Signs Temperature 98.2 F 07/26/17 10:00 Pulse Rate 95 H 07/26/17 11:57 Respiratory Rate 22 07/26/17 11:57 Blood Pressure 116/67 07/26/17 11:57 O2 Sat by Pulse Oximetry (%) 100 07/26/17 00:20 Additional Findings/Remarks: GEN: AAOx3, NAD, appears tired HEENT: PERRLA, EOMi CV: S1, S2, RRR, no murmurs LUNG: CTABL ABD: Soft, NT, ND MSK: No edema, no erythema NEURO: CN 2-12 intact Labs: CBC, BMP 07/26/17 05:55 07/26/17 05:55 INR, PTT INR 1.02 (0.82-1.09) 07/26/17 05:55 Assessment/Plan 21yo M with DM1, Active Heroin use, Hep C who presented in DKA and MRSA Bacteremia. # Endo: DKA -- Anion gap closed, on Levemir 15 HS, received last night while NPO which likely lead to AM hypoglycemia -- Continue fingersticks # CV: Hypotension, Elevated troponins -- Sepsis likely causing low blood pressure. S/p IVF bolus. Now on Norepinephrine ordered for pressure maintenance -- Stable troponins 0.20, likely from sepsis hyperdynamic circulation # ID: MRSA bacteremia, sepsis -- 2/2 direct innoculation. Echo shows no endocarditis. Febrile today. Now seeded into bladder +MRSA in urine -- Increased Vanco from 1g --> 1.25 BID, monitor Vanco trough (15-20 ideal), repeat Bcx tomorrow to assess clearance -- OR this AM for L forearm exploration and drainage # GI: Melena, Heroin Abuse, Transaminitis -- Melanotic BM this AM. +Guiac. Likely 2/2 thrombocytopenia from sepsis. -- Transfuse 2 PRBC. Protonix 40mg BID. Will have upper endoscopy in OR by Dr Keys -- Placed on methadone taper by detox, monitor CMP # Heme: Anemia, Thrombocytopenia -- Could all be secondary to sepsis, however could also be hemolytic anemia as Tbili is increased. -- F/u LDH and haptoglobin # Renal: Acute Kidney Injury -- Resolved, likely from dehydration vs sepsis. # FEN/PPx: -- On IVF, NPO for surgery, can have diabetic diet after -- SCDs due to thrombocytopenia, No GI ppx needed # Dispo: -- Can keep post-op and transfer out tmrw likely Arlette Baez MD PGY1 ICU Resident
[2017-07-26] MEDS ORDERED: FLUCONAZOLE 100 MG TABLET (UD) PO ONE (13:41)
--- NOTE | 2017-07-26 13:59 | PROC ---
Endoscopy Procedure Endoscopy procedure completed. Please see the GI consultation note and scanned procedure report.
[2017-07-26] MEDS: PANTOPRAZOLE 40 MG TABLET (FP) PO SCH (14:00)
[2017-07-26] MEDS: VANCOMYCIN 1,250 MG in DEXTROSE 5%-WATER - 250 ML IVPB SCH (14:00)
[2017-07-26] MEDS ORDERED: VANCOMYCIN 1,000 MG in DEXTROSE 5%-WATER - 250 ML IVPB SCH (14:00)
[2017-07-26] MEDS: FLUCONAZOLE 100 MG TABLET (UD) PO SCH (14:00)
[2017-07-26] MEDS: SUCRALFATE 1 GM/10 ML UNIT DOSE CUPS PO SCH ×3 (14:00→21:26)
[2017-07-26] MEDS ORDERED: VANCOMYCIN 1,250 MG in DEXTROSE 5%-WATER - 250 ML IVPB SCH (14:00)
--- NOTE | 2017-07-26 14:06 | OP ---
Operative Note - Note: Operative Date: 07/26/17 Pre-Operative Diagnosis: left for arm infected thrombophlebitic abscess Operation: incison and drianage of forarm abscess and debridement of bascillic vein Findings: bascilic vein abscess with pus and ectasia, packed with 1/2 inch iodform packing forearm fascia released Post-Operative Diagnosis: Same as Pre-op Surgeon: Sathya Beauchamp Anesthesiologist/MATHEMATICIAN: Lexus Izquierdo Anesthesia: Local (lidocaine 1% 10ml), MAC Specimens Removed: segments of vein Instrument used (Debridements only): scissors and scapel Drains & Tubes with Location: none Fluid Volume Replaced (mls): 200 (NS) Operative Report Dictated: Yes
[2017-07-26] MEDS ORDERED: LIDOCAINE HCL 1%, 10 MG/ML (20ML VIAL) ONE (14:39)
[2017-07-26 18:28] LABS: HEMATOCRIT 25.4 % (35.4-49); HEMOGLOBIN 8.4 GM/dL (11.7-16.9); MCH 31.7 pg (25.7-33.7); MCHC 33.1 g/dl (32.0-35.9); MEAN CELL VOLUME 95.6 fl (80-96); MEAN PLT VOLUME 9.5 fl (7.5-11.1); PLATELET COUNT 75 K/MM3 (134-434); RBC 2.66 M/mm3 (4.00-5.60); WHITE BLOOD COUNT 5.8 K/mm3 (4.0-10.0)
[2017-07-26 19:00] LABS: ALBUMIN 1.2 g/dl (3.4-5.0); ANION GAP 8 (8-16); BILIRUBIN,TOTAL 4.9 mg/dL (0.2-1.0); BLOOD UREA NITROGEN 13 mg/dL (7-18); CALCIUM 7.1 mg/dL (8.5-10.1); CHLORIDE 109 mmol/L (98-107); CO2 25 mmol/L (21-32); CREATININE 0.6 mg/dL (0.7-1.3); GLUCOSE,RANDOM 99 mg/dL (74-106); POTASSIUM 3.7 mmol/L (3.5-5.1); SGOT/AST 336 U/L (15-37); SGPT/ALT 145 U/L (12-78); SODIUM 142 mmol/L (136-145)
[2017-07-26 19:01] LABS: ALK PHOS 258 U/L (45-117)
[2017-07-26] MEDS: INSULIN DETEMIR 100 UNITS/ML MDV SQ SCH (21:28)
[2017-07-26] MEDS: THIAMINE HCL 100 MG TABLET (FP) PO SCH (21:29)
[2017-07-26] MEDS: SODIUM CHLORIDE 0.45%/POT 20 MEQ/1,000 ML INFUS.BAG IV SCH (21:32)
[2017-07-27] MEDS: VANCOMYCIN 1,250 MG in DEXTROSE 5%-WATER - 250 ML IVPB SCH ×2 (02:40→13:23)
[2017-07-27] MEDS: INSULIN SLIDING SCALE (NOVOLOG) 1 VIAL SQ SCH ×6 (02:42→21:44)
[2017-07-27] MEDS: GABAPENTIN 100 MG CAPSULE (FP) PO SCH ×3 (05:45→21:09)
[2017-07-27] MEDS: CYCLOBENZAPRINE HCL 10 MG TABLET (FP) PO SCH ×3 (05:45→21:09)
[2017-07-27 06:40] LABS: HEMATOCRIT 25.6 % (35.4-49); HEMOGLOBIN 8.8 GM/dL (11.7-16.9); MCH 32.1 pg (25.7-33.7); MCHC 34.3 g/dl (32.0-35.9); MEAN CELL VOLUME 93.5 fl (80-96); PLATELET COUNT 92 K/MM3 (134-434); RBC 2.74 M/mm3 (4.00-5.60); RDW 19.7 % (11.9-15.9); WHITE BLOOD COUNT 8.1 K/mm3 (4.0-10.0)
[2017-07-27 07:02] LABS: MAGNESIUM 1.6 mg/dL (1.8-2.4); PHOSPHOROUS 3.7 mg/dL (2.5-4.9)
[2017-07-27 07:06] LABS: LDH 193 U/L (87-241)
[2017-07-27 07:13] LABS: ACTIVATED PTT 25.7 SECONDS (26.9-34.4)
[2017-07-27 07:57] LABS: ALBUMIN 1.2 g/dl (3.4-5.0); ALK PHOS 277 U/L (45-117); ANION GAP 10 (8-16); BILIRUBIN,TOTAL 1.7 mg/dL (0.2-1.0); BLOOD UREA NITROGEN 14 mg/dL (7-18); CALCIUM 7.1 mg/dL (8.5-10.1); CHLORIDE 103 mmol/L (98-107); CO2 24 mmol/L (21-32); CREATININE 0.7 mg/dL (0.7-1.3); GLUCOSE,RANDOM 237 mg/dL (74-106); POTASSIUM 3.5 mmol/L (3.5-5.1); SGOT/AST 89 U/L (15-37); SGPT/ALT 113 U/L (12-78); SODIUM 137 mmol/L (136-145); TOT PROT 4.1 g/dl (6.4-8.2)
--- NOTE | 2017-07-27 08:13 | PN ---
Progress Note (short form) - Note Progress Note: ID Post debridement I&D of vein yesterday Vancomycin continues Selected Entries 07/27/17 07/27/17 06:00 07:51 Temperature 98.9 F Pulse Rate 120 H Respiratory 21 Rate Blood Pressure 90/57 Microbiology 07/26/17 08:20 Blood - Peripheral Venous Blood Culture - Preliminary Pending Organism 07/26/17 08:00 Blood - Peripheral Venous Blood Culture - Preliminary Pending Organism Laboratory Tests 07/27/17 07/27/17 06:15 06:15 WBC 8.1 D Hgb 8.8 L Hct 25.6 L Plt Count 92 L D BUN 14 Creatinine 0.7 Total Bilirubin 1.7 H D AST 89 H D ALT 113 H D Alkaline Phosphatase 277 H Assessment Suppurative thrombophlebitis of the left arm with polymicrobial bacteremia Yesterday's blood still positive not surprising ( note THEA 2ug MSRA) Must consider endocarditis as well as possible antibiotic failure Plan If today blood cultures remains positive into tomorrow will switch to Daptomycin with Ceftaroline Will need PEG of blood cultures persistently positive Bob SANDERSON
[2017-07-27] MEDS ORDERED: MAGNESIUM SULF 50% (8.12 MEQ/2 ML-1 GM VIAL) IVPB ONE (08:17)
[2017-07-27 08:27] LABS: D-DIMER > 5000 ng/ml (0-500)
--- NOTE | 2017-07-27 08:32 | PN ---
Progress Note, Physician History of Present Illness: Doing well. More awake, alert this AM. Arm still hanging. No more melanotic BMs. No fevers Hungry. - Current Medication List Current Medications: Active Medications Acetaminophen (Ofirmev Injection -) 1,000 mg IVPB Q6H PRN PRN Reason: BACK PAIN Last Admin: 07/26/17 02:19 Dose: 1,000 mg Clonidine (Catapres -) 0.1 mg PO BID [facility] Last Admin: 07/26/17 21:27 Dose: 0.1 mg Cyclobenzaprine HCl (Flexeril -) 10 mg PO TID [facility] Last Admin: 07/27/17 05:45 Dose: 10 mg Diazepam (Valium -) 10 mg PO Q4H PRN PRN Reason: WITHDRAWAL(CONT SUBST) Stop: 07/27/17 10:39 Fluconazole (Diflucan -) 200 mg PO DAILY [facility] Stop: 08/09/17 13:45 Last Admin: 07/26/17 14:00 Dose: Not Given Gabapentin (Neurontin -) 100 mg PO TID [facility] Last Admin: 07/27/17 05:45 Dose: 100 mg Vancomycin HCl 1,250 mg/ (Dextrose) 250 mls @ 166.667 mls/hr IVPB BID@0200, 1400 [facility] PRN Reason: Protocol Last Admin: 07/27/17 02:40 Dose: 166.667 mls/hr Insulin Aspart (Novolog Vial Sliding Scale -) 1 vial SQ Q4HPO [facility] PRN Reason: Protocol Last Admin: 07/27/17 05:45 Dose: 6 units Insulin Detemir (Levemir Vial) 15 units SQ HS [facility] Last Admin: 07/26/17 21:28 Dose: 15 units Magnesium Sulfate (Magnesium Sulfate) 2 gm IVPB ONCE ONE Stop: 07/27/17 08:18 Methadone HCl (Dolophine -) 10 mg PO ONCE ONE Stop: 07/28/17 10:01 Methadone HCl (Dolophine -) 5 mg PO ONCE ONE Stop: 07/29/17 06:01 Methadone HCl (Dolophine -) 15 mg PO ONCE@1000 ONE Stop: 07/27/17 10:01 Nicotine (Nicoderm Patch -) 21 mg TD DAILY [facility] Last Admin: 07/26/17 10:00 Dose: Not Given Nicotine Polacrilex (Nicorette Gum -) 2 mg BUC Q2H PRN PRN Reason: NICOTINE REPLACEMENT RX Ondansetron HCl (Zofran Odt -) 8 mg SL Q6H PRN PRN Reason: NAUSEA AND/OR VOMITING Pantoprazole Sodium (Protonix -) 40 mg PO BID [facility] Last Admin: 07/26/17 14:00 Dose: Not Given Multivit/Folic Acid/Iron ( Vitamins (Sjr) -) 1 tab PO DAILY [facility] Last Admin: 07/26/17 10:00 Dose: Not Given Sucralfate (Carafate Oral Suspension -) 1 gm PO QID [facility] Last Admin: 07/26/17 21:26 Dose: 1 gm Thiamine HCl (Vitamin B1 -) 100 mg PO HS [facility] Last Admin: 07/26/17 21:29 Dose: 100 mg - Objective Vital Signs: Vital Signs Temperature 98.9 F 07/27/17 06:00 Pulse Rate 120 H 07/27/17 07:51 Respiratory Rate 21 07/27/17 07:51 Blood Pressure 90/57 07/27/17 07:51 O2 Sat by Pulse Oximetry (%) 100 07/27/17 07:55 Additional Findings/Remarks: GEN: AAOx3, NAD, Lying comfortably HEENT: PERRLA, EOMi CV: S1, S2, RRR LUNG: CTABL ABD: Soft, NT, ND, normoactive BS MSK: Arm hanging in sling, will be seen by surgery NEURO: CN 2-12 intact Labs: CBC, BMP 07/27/17 06:15 07/27/17 06:15 INR, PTT INR 1.02 (0.82-1.09) 07/26/17 05:55 Assessment/Plan 21yo M with DM1, Active Heroin use, Hep C who presented in DKA and MRSA Bacteremia. # Endo: DKA -- Resolved. Levemir 15 HS, ISS. # ID: MRSA bacteremia, sepsis -- 2/2 L forearm abscess from direct inoculation. S/p OR debridement. -- No fevers, clinically improved. Vanco level good today. Continue 1.25 BID. -- Repeat BCx today, if persistent, can switch to Dapto/Ceftaroline. # GI: Melena, Heroin Abuse, Transaminitis -- Had 1 melanotic BM yest + guiac. No further. S/p 2u PRBC. EGD shows no bleeding source. Could have been 2/2 thrombocytopenia. -- Still on protonix, carafate -- Transaminitis and Tbili improving. # Heme: Anemia, Thrombocytopenia -- Improving, could have been from sepsis which is improving since source control # CV: Elevated troponins -- Stable troponins 0.20, likely from sepsis hyperdynamic circulation -- Bp has improved since coming back from OR # Renal: Acute Kidney Injury -- Resolved, likely from dehydration vs sepsis. # FEN/PPx: -- IVNS 100cc/hr, Diabetic diet -- SCDs due to thrombocytopenia, No GI ppx needed # Dispo: -- Stable for transfer today to med/surg Arlette Baez MD PGY1 ICU Resident
[2017-07-27] MEDS ORDERED: PT OWN MED DRAWER 7, Y5N ONE (09:02)
[2017-07-27] MEDS ORDERED: HEMOQUE TEST 1 EACH EACH ONE (09:04)
[2017-07-27] MEDS: SUCRALFATE 1 GM/10 ML UNIT DOSE CUPS PO SCH ×4 (09:11→21:44)
[2017-07-27] MEDS: PRENATAL VITAMINS W/ FOLIC ACID TABLET (FP) PO SCH (09:11)
[2017-07-27] MEDS: FLUCONAZOLE 100 MG TABLET (UD) PO SCH (09:12)
[2017-07-27] MEDS: NICOTINE 21 MG/24 HOURS TOPICAL PATCH TD SCH (09:12)
[2017-07-27] MEDS: PANTOPRAZOLE 40 MG TABLET (FP) PO SCH ×2 (09:13→21:09)
[2017-07-27] MEDS: cloNIDine HCL 0.1 MG TABLET PO SCH ×2 (09:13→21:09)
--- NOTE | 2017-07-27 09:45 | PN ---
Progress Note, Physician Chief Complaint: IVDA with left arm cellulitis and infected thrombophlebitis History of Present Illness: 21yo LHD male PMH type 1 DM, current IV heroin user, Hepatitis C presented with altered mental status and generalized weakness. He remembers being dropped off in the ER. He is less lethargic today. Complains of pain. - Current Medication List Current Medications: Active Medications Acetaminophen (Ofirmev Injection -) 1,000 mg IVPB Q6H PRN PRN Reason: BACK PAIN Last Admin: 07/26/17 02:19 Dose: 1,000 mg Clonidine (Catapres -) 0.1 mg PO BID [facility] Last Admin: 07/27/17 09:13 Dose: Not Given Cyclobenzaprine HCl (Flexeril -) 10 mg PO TID [facility] Last Admin: 07/27/17 05:45 Dose: 10 mg Diazepam (Valium -) 10 mg PO Q4H PRN PRN Reason: WITHDRAWAL(CONT SUBST) Stop: 07/27/17 10:39 Fluconazole (Diflucan -) 200 mg PO DAILY [facility] Stop: 08/09/17 13:45 Last Admin: 07/27/17 09:12 Dose: 200 mg Gabapentin (Neurontin -) 100 mg PO TID [facility] Last Admin: 07/27/17 05:45 Dose: 100 mg Vancomycin HCl 1,250 mg/ (Dextrose) 250 mls @ 166.667 mls/hr IVPB BID@0200, 1400 [facility] PRN Reason: Protocol Last Admin: 07/27/17 02:40 Dose: 166.667 mls/hr MAGNESIUM SULFATE IN WATER (Magnesium Sulf 2 G/50 Ml Bag) 2 gm in 50 mls @ 100 mls/hr IVPB ONCE ONE Stop: 07/27/17 10:29 Insulin Aspart (Novolog Vial Sliding Scale -) 1 vial SQ Q4HPO [facility] PRN Reason: Protocol Last Admin: 07/27/17 05:45 Dose: 6 units Insulin Detemir (Levemir Vial) 15 units SQ [facility] Last Admin: 07/26/17 21:28 Dose: 15 units Methadone HCl (Dolophine -) 10 mg PO ONCE ONE Stop: 07/28/17 10:01 Methadone HCl (Dolophine -) 5 mg PO ONCE ONE Stop: 07/29/17 06:01 Methadone HCl (Dolophine -) 15 mg PO ONCE@1000 ONE Stop: 07/27/17 10:01 Last Admin: 07/27/17 09:11 Dose: 15 mg Nicotine (Nicoderm Patch -) 21 mg TD DAILY [facility] Last Admin: 07/27/17 09:12 Dose: 21 mg Nicotine Polacrilex (Nicorette Gum -) 2 mg BUC Q2H PRN PRN Reason: NICOTINE REPLACEMENT RX Ondansetron HCl (Zofran Odt -) 8 mg SL Q6H PRN PRN Reason: NAUSEA AND/OR VOMITING Pantoprazole Sodium (Protonix -) 40 mg PO BID [facility] Last Admin: 07/27/17 09:13 Dose: 40 mg Multivit/Folic Acid/Iron ( Vitamins (Sjr) -) 1 tab PO DAILY [facility] Last Admin: 07/27/17 09:11 Dose: 1 tab Sucralfate (Carafate Oral Suspension -) 1 gm PO QID [facility] Last Admin: 07/27/17 09:11 Dose: 1 gm Thiamine HCl (Vitamin B1 -) 100 mg PO [facility] Last Admin: 07/26/17 21:29 Dose: 100 mg - Objective Vital Signs: Vital Signs Temperature 98.9 F 07/27/17 06:00 Pulse Rate 120 H 07/27/17 07:51 Respiratory Rate 21 07/27/17 08:50 Blood Pressure 90/57 07/27/17 07:51 O2 Sat by Pulse Oximetry (%) 100 07/27/17 08:50 Vital Signs Period Temp Pulse Resp BP Sys/Nolan Pulse Ox Last 24 Hr 98.2 F-99.3 F 93-120 20-30 90-121/44-88 100-100 Intake & Output 07/26/17 07/27/17 07/27/17 23:59 07:59 15:59 Intake Total 3250 200 Output Total 1500 Balance 3250 -1300 Weight 140 lb 3.2 oz Intake: IV 2000 NS 1L bolus 2000 IVPB 250 Oral 200 200 Oral Supplement 200 Packed Cells 600 Output: Urine 1500 Hardy 1500 Other: Voiding Method Indwelling Catheter Indwelling Catheter Bowel Movement Yes Yes Weight Measurement Method Built in [facility] Constitutional: Yes: No Distress, Calm, Poor Hygeine, Thin Eyes: Yes: Conjunctiva Clear, EOM Intact HENT: Yes: Atraumatic, Normocephalic Neck: Yes: Supple, Trachea Midline Cardiovascular: Yes: Regular Rate and Rhythm, S1, S2. No: Murmur Respiratory: Yes: Regular, CTA Bilaterally Gastrointestinal: Yes: Normal Bowel Sounds, Soft. No: Tenderness ...Rectal Exam: Yes: Deferred Genitourinary: No: CVA Tenderness - Left, CVA Tenderness - Right Breast(s): No: Nipple Inversion, Skin Changes Extremities: No: Cool, Cyanosis Edema: Yes Edema: LUE: 3+ (focal elbow, reduce in hand and wrist compared to yesterday ) Peripheral Pulses WNL: Yes Peripheral Pulses: Left Radial: 2+, Right Radial: 2+, Left Doralis Pedis: 2+, Right Dorsalis Pedis: 2+ Integumentary: No: Jaundice, Rash Wound/Incision: Yes: Dressing Removed, Reddened, Unapproximated (Dressing Left forearm/ antecubital fossa Wound Measurement: two linear [id number] healthy soft tissue and veins no purulent drainage Dressing instructions: 1/2inch iodoform packing, 4X4 gauze sponges, kerlex and tape). No: Draining Neurological: Yes: Alert, Oriented Psychiatric: Yes: Alert, Oriented Labs: CBC, BMP 07/27/17 06:15 07/27/17 06:15 INR, PTT INR 1.02 (0.82-1.09) 07/26/17 05:55 Fibrinogen 788.0 mg/dL (238-498) H 07/27/17 06:15 Microbiology 07/23/17 23:35 Blood - Peripheral Venous Blood Culture - Preliminary S Aureus Streptococcus Viridans 07/23/17 23:35 Blood - Peripheral Venous Blood Culture - Preliminary S Aureus Streptococcus Viridans 07/26/17 08:00 Blood - Peripheral Venous Blood Culture - Preliminary Pending Organism 07/26/17 08:20 Blood - Peripheral Venous Blood Culture - Preliminary Pending Organism 07/24/17 00:00 Urine - Urine Clean Catch Urine Culture - Final S Aureus Problem List - Problems (1) Thrombophlebitis arm Assessment/Plan: 21 yo LHD male with DM type 1 in DKA with aggressive left forearm cellulitis, thrombophlebitis, and draining abscess at the site of infecting IV drugs. There is no sign of compartment syndrome at present. POD#1 s/p I&D and debridement of infected thrombophlebitis left forearm. Dressing Left forearm/ antecubital fossa Wound Measurement: two linear [id number] healthy soft tissue and veins no purulent drainage Dressing instructions: 1/2inch iodoform packing, 4X4 gauze sponges, kerlex and tape broad spectrum IV antibiotics f/u culture glycemic control left arm elevation above heart level in [place]inette This patient is critically ill. Time spent reviewing chart, examining patient, talking with providers and/or family and documentation is 35 minutes Code(s): I80.8 - PHLEBITIS AND THROMBOPHLEBITIS OF OTHER SITES (2) Abscess of forearm Code(s): L02.419 - CUTANEOUS ABSCESS OF LIMB, UNSPECIFIED (3) Opioid dependence with withdrawal Code(s): F11.23 - OPIOID DEPENDENCE WITH WITHDRAWAL (4) Diabetes Code(s): E11.9 - TYPE 2 DIABETES MELLITUS WITHOUT COMPLICATIONS Qualifiers: Diabetes mellitus type: type 1 Diabetes mellitus complication status: without complication Qualified Code(s): E10.9 - Type 1 diabetes mellitus without complications
[2017-07-27] MEDS ORDERED: METHADONE HCL 5 MG TABLET PO ONE ×2 (10:00)
[2017-07-27] MEDS ORDERED: MAGNESIUM SULFATE IN WATER 2 GM/50 ML IVPB IVPB ONE (10:00)
[2017-07-27 10:15] LABS: ANISOCYTOSIS 2+; MACROCYTOSIS 0; PLATELET ESTIMATE DECREASED; TEAR DROP CELLS 1+
[2017-07-27] MEDS ORDERED: morphine SULFATE 4 MG/ML VIAL IVPUSH PRN ×2 (10:48→12:03)
[2017-07-27] MEDS ORDERED: INSULIN (NOVOLOG) ASPART 100 UNITS/ML 10ML VIAL ONE (11:25)
--- NOTE | 2017-07-27 11:58 | OP ---
DATE OF OPERATION: 07/27/2017 PREOPERATIVE DIAGNOSIS: Left forearm infected thrombophlebitis with abscess. POSTOPERATIVE DIAGNOSIS: Left forearm infected thrombophlebitis with abscess. PROCEDURE: Incision and drainage left forearm abscess, debridement of basilic vein. ATTENDING SURGEON: Sathya Beauchamp MD STAFF COUNSELOR: No one. ANESTHESIOLOGIST: Lexus Izquierdo MD ANESTHESIA TYPE: MAC with local, local consisting of 1% lidocaine 10 mL given. SPECIMEN REMOVED: Segment of infected vein and culture for sensitivity expatiation. INSTRUMENTS USED FOR DEBRIDEMENT: Scissors and scalpel. ESTIMATED BLOOD LOSS: 20 mL. TOURNIQUET: Not used. INTRAVENOUS FLUID: 200 mL. INDICATIONS: Patient is a 21-year-old male with history of IV drug abuse with heroin who presents approximately 48 hours after last heroin binge with infected thrombophlebitis with significant redness and swelling of the left arm and the antecubital fossa in the let forearm. He was counseled regarding the need for incision, drainage, and debridement of the site in order for source control. He was in diabetic ketoacidosis as he is a type 1 diabetic. After he was assessed by Psychiatry, he assessed to have capacity to give consent. Consent was obtained after explaining the risks, benefits, and alternatives, and he was taken to the surgical procedure. DESCRIPTION OF PROCEDURE: The patient was brought to the operating room, placed in supine position on the operating table with the left arm extended 90 degrees perpendicular to the bodys axis at the shoulder. The lower extremities had bilateral SCDs placed. He was already on vancomycin therapy and was known to be bacteremic with vancomycin, he was on therapy. He was induced with sedation, provided with supplemental oxygen. At which point, we proceeded first with marking along the track crook at the skin, linear incisions to allow for debridement of vein and opening of the abscess cavity at the site of punctums that were draining sanguinopurulent material. Decision was made not to use the tourniquet or sanguinate as we would flush forward the infection. Instead, we proceeded with a formal time-out identifying the site, all the parties in agreement. We proceeded then with incision with a 15-blade scalpel over the inscribed incisions. Care was taken to place them far enough apart to avoid skin necrosis. The most radial incision was made in the forearm and was approximately 4 cm long and was opened down through subcutaneous tissue. Bovie bipolar cautery was used to dissect down to the connective tissue of the forearm fascia. There was a small amount of pus, which was sent for culture and sensitivity. The forearm fascia once identified was opened proximally and distally to allow for inspection of the muscle belly which appeared healthy and viable. Cautery was used to obtain hemostasis throughout the cut skin edge, and with the edema relieved, pressure was held, and we turned our attention to the next site. The next site was opened along the basilic access. At which point, we proceeded then with dissection down through the subcutaneous tissue with Bovie cautery. The basilic vein itself was thrombosed, and abscess was identified with a gaitan of pus. Once the vein itself was opened, it was opened with a 15-blade scalpel. A culture and sensitivity was sent from this site, as well. The basilic vein was identified and controlled both distally and proximally, then, debrided with a scalpel and scissors. The cut ends, once expressed of all purulent material, were suture ligated with 4-0 Vicryl. At which point, we proceeded then with irrigation of the site. Each of the 2 sites were identified. The aponeurosis of the antecubital fossa was also opened. There did appear to be extension of this process from the superficial to the deep system. The area was irrigated copiously with approximately 0.5 L sterile irrigation fluid. The sites were then packed, first with 0.5-inch Iodoform packing, 4 x 4 gauze pads were placed on top, and then the arm was wrapped with Kerlix and Coban. The arm was then planned for elevation to help reduce the significant edema and erythema, which was in the area. The patient tolerated the procedure well and was awoken from anesthesia in stable condition. He was stable throughout the procedure. Counts were correct, and the patient was returned to the ICU in stable condition. MD JOSE Abdalla/[id number]
--- NOTE | 2017-07-27 12:50 | PN ---
Teaching Attending Note Name of Resident: Arlette Baez ATTENDING PHYSICIAN STATEMENT I saw and evaluated the patient. I reviewed the resident's note and discussed the case with the resident. I agree with the resident's findings and plan as documented. SUBJECTIVE: Patient seen and examined in the ICU. Awake and alert. Reports pain in his left arm which is currently being elevated by a sling. Denies CP or SOB. OBJECTIVE: Intake & Output 07/24/17 07/25/17 07/26/17 07/27/17 23:59 23:59 23:59 23:59 Intake Total 1350 3625 5075 200 Output Total 5800 4000 765 1500 Balance -4450 -375 4310 -1300 Weight 132 lb 0.163 oz 130 lb 12.8 oz 141 lb 12.116 oz 140 lb 3.2 oz Last Vital Signs Temp Pulse Resp BP Pulse Ox 98.9 F 117 H 22 122/74 100 07/27/17 06:00 07/27/17 10:00 07/27/17 10:00 07/27/17 10:00 07/27/17 08:50 Active Medications Acetaminophen (Ofirmev Injection -) 1,000 mg IVPB Q6H PRN PRN Reason: BACK PAIN Last Admin: 07/26/17 02:19 Dose: 1,000 mg Clonidine (Catapres -) 0.1 mg PO BID [facility] Last Admin: 07/27/17 09:13 Dose: Not Given Cyclobenzaprine HCl (Flexeril -) 10 mg PO TID [facility] Last Admin: 07/27/17 05:45 Dose: 10 mg Fluconazole (Diflucan -) 200 mg PO DAILY [facility] Stop: 08/09/17 13:45 Last Admin: 07/27/17 09:12 Dose: 200 mg Gabapentin (Neurontin -) 100 mg PO TID [facility] Last Admin: 07/27/17 05:45 Dose: 100 mg Vancomycin HCl 1,250 mg/ (Dextrose) 250 mls @ 166.667 mls/hr IVPB BID@0200, 1400 [facility] PRN Reason: Protocol Last Admin: 07/27/17 02:40 Dose: 166.667 mls/hr Sodium Chloride (Normal Saline -) 1,000 mls @ 100 mls/hr IV ASDIR ROBIN Insulin Aspart (Novolog Vial Sliding Scale -) 1 vial SQ Q4HPO [facility] PRN Reason: Protocol Last Admin: 07/27/17 11:00 Dose: 8 units Insulin Detemir (Levemir Vial) 15 units SQ HS [facility] Last Admin: 07/26/17 21:28 Dose: 15 units Methadone HCl (Dolophine -) 10 mg PO ONCE ONE Stop: 07/28/17 10:01 Methadone HCl (Dolophine -) 5 mg PO ONCE ONE Stop: 07/29/17 06:01 Morphine Sulfate (Morphine Sulfate) 1 mg IVPUSH Q4H PRN PRN Reason: PAIN LEVEL 6-10 Nicotine (Nicoderm Patch -) 21 mg TD DAILY [facility] Last Admin: 07/27/17 09:12 Dose: 21 mg Nicotine Polacrilex (Nicorette Gum -) 2 mg BUC Q2H PRN PRN Reason: NICOTINE REPLACEMENT RX Ondansetron HCl (Zofran Odt -) 8 mg SL Q6H PRN PRN Reason: NAUSEA AND/OR VOMITING Pantoprazole Sodium (Protonix -) 40 mg PO BID [facility] Last Admin: 07/27/17 09:13 Dose: 40 mg Multivit/Folic Acid/Iron ( Vitamins (Sjr) -) 1 tab PO DAILY [facility] Last Admin: 07/27/17 09:11 Dose: 1 tab Sucralfate (Carafate Oral Suspension -) 1 gm PO QID [facility] Last Admin: 07/27/17 09:11 Dose: 1 gm Thiamine HCl (Vitamin B1 -) 100 mg PO [facility] Last Admin: 07/26/17 21:29 Dose: 100 mg Gen: Awake and alert, NAD Heart: RRR Lung: decreased breath sounds at the bases Abd: soft, nontender Ext: LUE dressed and in a sling Laboratory Results - last 24 hr 07/25/17 07/26/17 07/26/17 05:10 15:00 15:00 WBC 5.8 RBC 2.66 L D Hgb 8.4 L D Hct 25.4 L D MCV 95.6 MCH 31.7 MCHC 33.1 RDW 20.0 H D Plt Count 75 L MPV 9.5 Neutrophils % Neutrophils % (Manual) Band Neutrophils % Lymphocytes % Lymphocytes % (Manual) Monocytes % (Manual) Eosinophils % (Manual) Basophils % (Manual) Myelocytes % (Man) Promyelocytes % (Man) Nucleated RBC % Metamyelocytes Hypochromia Platelet Estimate Polychromasia Poikilocytosis Anisocytosis Microcytosis Macrocytosis Tear Drop Cells Stomatocytes PTT (Actin FS) Fibrinogen D-Dimer Sodium 142 Potassium 3.7 Chloride 109 H Carbon Dioxide 25 Anion Gap 8 BUN 13 Creatinine 0.6 L Creat Clearance w eGFR > 60 POC Glucometer Random Glucose 99 D Hemoglobin A1c % 8.6 H Lactic Acid Calcium 7.1 L Phosphorus Magnesium Ferritin Total Bilirubin 4.9 H D AST 336 H D ALT 145 H Alkaline Phosphatase 258 H LD Total Creatine Kinase Troponin I Total Protein 4.0 L Albumin 1.2 L Random Vancomycin 07/26/17 07/26/17 07/26/17 15:00 15:00 15:00 WBC RBC Hgb Hct MCV MCH MCHC RDW Plt Count MPV Neutrophils % Neutrophils % (Manual) Band Neutrophils % Lymphocytes % Lymphocytes % (Manual) Monocytes % (Manual) Eosinophils % (Manual) Basophils % (Manual) Myelocytes % (Man) Promyelocytes % (Man) Nucleated RBC % Metamyelocytes Hypochromia Platelet Estimate Polychromasia Poikilocytosis Anisocytosis Microcytosis Macrocytosis Tear Drop Cells Stomatocytes PTT (Actin FS) Fibrinogen D-Dimer 4388 H Sodium Potassium Chloride Carbon Dioxide Anion Gap BUN Creatinine Creat Clearance w eGFR POC Glucometer Random Glucose Hemoglobin A1c % Lactic Acid 1.4 Calcium Phosphorus Magnesium Ferritin Total Bilirubin AST ALT Alkaline Phosphatase LD Total Creatine Kinase 31 L Troponin I 0.16 H Total Protein Albumin Random Vancomycin 07/26/17 07/26/17 07/27/17 17:46 20:49 02:26 WBC RBC Hgb Hct MCV MCH MCHC RDW Plt Count MPV Neutrophils % Neutrophils % (Manual) Band Neutrophils % Lymphocytes % Lymphocytes % (Manual) Monocytes % (Manual) Eosinophils % (Manual) Basophils % (Manual) Myelocytes % (Man) Promyelocytes % (Man) Nucleated RBC % Metamyelocytes Hypochromia Platelet Estimate Polychromasia Poikilocytosis Anisocytosis Microcytosis Macrocytosis Tear Drop Cells Stomatocytes PTT (Actin FS) Fibrinogen D-Dimer Sodium Potassium Chloride Carbon Dioxide Anion Gap BUN Creatinine Creat Clearance w eGFR POC Glucometer 214.16249 370.08718 274.79213 Random Glucose Hemoglobin A1c % Lactic Acid Calcium Phosphorus Magnesium Ferritin Total Bilirubin AST ALT Alkaline Phosphatase LD Total Creatine Kinase Troponin I Total Protein Albumin Random Vancomycin 07/27/17 07/27/17 07/27/17 05:39 06:15 06:15 WBC 8.1 D RBC 2.74 L Hgb 8.8 L Hct 25.6 L MCV 93.5 MCH 32.1 MCHC 34.3 RDW 19.7 H Plt Count 92 L D MPV 9.0 Neutrophils % No Result Required. Neutrophils % (Manual) 68.4 Band Neutrophils % 7.4 Lymphocytes % No Result Required. Lymphocytes % (Manual) 15.8 D Monocytes % (Manual) 3 L Eosinophils % (Manual) 0.0 Basophils % (Manual) 4.2 H D Myelocytes % (Man) 0 D Promyelocytes % (Man) 0 Nucleated RBC % 0 Metamyelocytes 0 D Hypochromia 0 Platelet Estimate Decreased Polychromasia 0 Poikilocytosis 0 Anisocytosis 2+ Microcytosis 2+ Macrocytosis 0 Tear Drop Cells 1+ Stomatocytes 1+ PTT (Actin FS) 25.7 L Fibrinogen 788.0 H D-Dimer > 5000 H Sodium Potassium Chloride Carbon Dioxide Anion Gap BUN Creatinine Creat Clearance w eGFR POC Glucometer [phone] Random Glucose Hemoglobin A1c % Lactic Acid Calcium Phosphorus Magnesium Ferritin Total Bilirubin AST ALT Alkaline Phosphatase LD Total Creatine Kinase Troponin I Total Protein Albumin Random Vancomycin 07/27/17 07/27/17 07/27/17 06:15 06:15 09:20 WBC RBC Hgb Hct MCV MCH MCHC RDW Plt Count MPV Neutrophils % Neutrophils % (Manual) Band Neutrophils % Lymphocytes % Lymphocytes % (Manual) Monocytes % (Manual) Eosinophils % (Manual) Basophils % (Manual) Myelocytes % (Man) Promyelocytes % (Man) Nucleated RBC % Metamyelocytes Hypochromia Platelet Estimate Polychromasia Poikilocytosis Anisocytosis Microcytosis Macrocytosis Tear Drop Cells Stomatocytes PTT (Actin FS) Fibrinogen D-Dimer Sodium 137 Cancelled Potassium 3.5 Cancelled Chloride 103 Cancelled Carbon Dioxide 24 Cancelled Anion Gap 10 Cancelled BUN 14 Cancelled Creatinine 0.7 Cancelled Creat Clearance w eGFR > 60 Cancelled POC Glucometer Random Glucose 237 H D Cancelled Hemoglobin A1c % Lactic Acid Calcium 7.1 L Cancelled Phosphorus 3.7 D Magnesium 1.6 L Ferritin 759.172 H Total Bilirubin 1.7 H D Cancelled AST 89 H D Cancelled ALT 113 H D Cancelled Alkaline Phosphatase 277 H Cancelled LD Total 193 D Creatine Kinase Troponin I Total Protein 4.1 L Cancelled Albumin 1.2 L Cancelled Random Vancomycin 16.278 07/27/17 11:23 WBC RBC Hgb Hct MCV MCH MCHC RDW Plt Count MPV Neutrophils % Neutrophils % (Manual) Band Neutrophils % Lymphocytes % Lymphocytes % (Manual) Monocytes % (Manual) Eosinophils % (Manual) Basophils % (Manual) Myelocytes % (Man) Promyelocytes % (Man) Nucleated RBC % Metamyelocytes Hypochromia Platelet Estimate Polychromasia Poikilocytosis Anisocytosis Microcytosis Macrocytosis Tear Drop Cells Stomatocytes PTT (Actin FS) Fibrinogen D-Dimer Sodium Potassium Chloride Carbon Dioxide Anion Gap BUN Creatinine Creat Clearance w eGFR POC Glucometer [phone] Random Glucose Hemoglobin A1c % Lactic Acid Calcium Phosphorus Magnesium Ferritin Total Bilirubin AST ALT Alkaline Phosphatase LD Total Creatine Kinase Troponin I Total Protein Albumin Random Vancomycin ASSESSMENT AND PLAN: Diabetic Ketoacidosis improving LUE Abscess Gram Positive Bacteremia Septic Shock Thrombocytopenia Acute Kidney Injury improving Lactic Acidosis +Troponins likely Demand Ischemia Elevated LFTs Metabolic Derangements IVDU/Polysubstance Abuse Anemia - IVF - monitor BGM, BMP - replete lytes - IV antibiotics per ID - f/u final cultures - monitor urine output, creatinine - monitor H/H - protonix - continue detox Dr Aiken Critical care time spent in reviewing chart, evaluating patient and formulating plan 36min
[2017-07-27] MEDS: SODIUM CHLORIDE 1,000 ML IV SCH (13:00)
--- NOTE | 2017-07-27 15:23 | PN ---
GI Progress Note Subjective: Dr. Rodarte covering for Dr. Keys No melena No abdominal pain EGD yesterday = severe esophagitis / farhat - Objective Vital Signs: Vital Signs Temperature 98.8 F 07/27/17 10:00 Pulse Rate 121 H 07/27/17 14:00 Respiratory Rate 22 07/27/17 14:00 Blood Pressure 122/85 07/27/17 14:00 O2 Sat by Pulse Oximetry (%) 100 07/27/17 08:50 Constitutional: Calm Eyes: No: Sclera Icterus Cardiovascular: Yes: Tachycardia Respiratory: Yes: Diminished (at bases b/l. Poor insp effort) Gastrointestinal Inspection: No: Scars ...Auscultate: Yes: Hyperactive Bowel Sounds ...Palpate: No: Hepatomegaly, Splenomegaly, Tenderness Edema: No (No LE edema) Neurological: Yes: Alert Labs: CBC, BMP 07/27/17 06:15 07/27/17 06:15 INR, PTT INR 1.02 (0.82-1.09) 07/26/17 05:55 Fibrinogen 788.0 mg/dL (238-498) H 07/27/17 06:15 Hepatic Panel Total Bilirubin 1.7 mg/dL (0.2-1.0) H D 07/27/17 06:15 Direct Bilirubin 1.2 mg/dL (0.0-0.2) H D 07/25/17 12:00 AST 89 U/L (15-37) H D 07/27/17 06:15 ALT 113 U/L (12-78) H D 07/27/17 06:15 Alkaline Phosphatase 277 U/L (45-117) H 07/27/17 06:15 Albumin 1.2 g/dl (3.4-5.0) L 07/27/17 06:15 Problem List - Problems (1) Esophagitis Assessment/Plan: On diflucan therapy. Would decrease dose to 100mg daily given already elevated LFts. Monitor for hepatotoxicity On Carafate On Protonix Monitor for active ongoing bleeding Code(s): K20.9 - ESOPHAGITIS, UNSPECIFIED
[2017-07-27] MEDS: ACETAMINOPHEN 1000 MG/100 ML VIAL (NON FORMULARY) IVPB PRN (15:26)
[2017-07-27] MEDS: morphine SULFATE 4 MG/ML VIAL IVPUSH PRN ×2 (18:36→22:02)
[2017-07-27] MEDS: THIAMINE HCL 100 MG TABLET (FP) PO SCH (21:09)
[2017-07-27] MEDS: INSULIN DETEMIR 100 UNITS/ML MDV SQ SCH (21:44)
--- NOTE | 2017-07-27 23:24 | PN ---
Progress Note, Physician History of Present Illness: No new complaints - Current Medication List Current Medications: Active Medications Clonidine (Catapres -) 0.1 mg PO BID [facility] Last Admin: 07/27/17 21:09 Dose: 0.1 mg Cyclobenzaprine HCl (Flexeril -) 10 mg PO TID [facility] Last Admin: 07/27/17 21:09 Dose: 10 mg Fluconazole (Diflucan -) 200 mg PO DAILY [facility] Stop: 08/09/17 13:45 Last Admin: 07/27/17 09:12 Dose: 200 mg Gabapentin (Neurontin -) 100 mg PO TID [facility] Last Admin: 07/27/17 21:09 Dose: 100 mg Vancomycin HCl 1,250 mg/ (Dextrose) 250 mls @ 166.667 mls/hr IVPB BID@0200, 1400 [facility] PRN Reason: Protocol Last Admin: 07/27/17 13:23 Dose: 166.667 mls/hr Sodium Chloride (Normal Saline -) 1,000 mls @ 100 mls/hr IV ASDIR [facility] Last Admin: 07/27/17 13:00 Dose: 100 mls/hr Insulin Aspart (Novolog Vial Sliding Scale -) 1 vial SQ Q4HPO [facility] PRN Reason: Protocol Last Admin: 07/27/17 21:44 Dose: 6 units Insulin Detemir (Levemir Vial) 15 units SQ HS [facility] Last Admin: 07/27/17 21:44 Dose: 15 units Methadone HCl (Dolophine -) 10 mg PO ONCE ONE Stop: 07/28/17 10:01 Methadone HCl (Dolophine -) 5 mg PO ONCE ONE Stop: 07/29/17 06:01 Morphine Sulfate (Morphine Sulfate) 2 mg IVPUSH Q4H PRN PRN Reason: PAIN LEVEL 6-10 Last Admin: 07/27/17 22:02 Dose: 2 mg Nicotine (Nicoderm Patch -) 21 mg TD DAILY [facility] Last Admin: 07/27/17 09:12 Dose: 21 mg Nicotine Polacrilex (Nicorette Gum -) 2 mg BUC Q2H PRN PRN Reason: NICOTINE REPLACEMENT RX Ondansetron HCl (Zofran Odt -) 8 mg SL Q6H PRN PRN Reason: NAUSEA AND/OR VOMITING Pantoprazole Sodium (Protonix -) 40 mg PO BID [facility] Last Admin: 07/27/17 21:09 Dose: 40 mg Multivit/Folic Acid/Iron ( Vitamins (Sjr) -) 1 tab PO DAILY [facility] Last Admin: 07/27/17 09:11 Dose: 1 tab Sucralfate (Carafate Oral Suspension -) 1 gm PO QID [facility] Last Admin: 07/27/17 21:44 Dose: 1 gm Thiamine HCl (Vitamin B1 -) 100 mg PO HS [facility] Last Admin: 07/27/17 21:09 Dose: 100 mg - Objective Vital Signs: Vital Signs Temperature 98.8 F 07/27/17 18:00 Pulse Rate 124 H 07/27/17 20:00 Respiratory Rate 23 07/27/17 20:00 Blood Pressure 115/69 07/27/17 20:00 O2 Sat by Pulse Oximetry (%) 100 07/27/17 20:00 Cardiovascular: Yes: Tachycardia Respiratory: Yes: WNL, Regular, CTA Bilaterally Gastrointestinal: Yes: WNL, Normal Bowel Sounds, Soft Extremities: Yes: Other ((+) warmth/swelling LUE) Labs: CBC, BMP 07/27/17 06:15 07/27/17 06:15 INR, PTT INR 1.02 (0.82-1.09) 07/26/17 05:55 Fibrinogen 788.0 mg/dL (238-498) H 07/27/17 06:15 Problem List - Problems (1) Diabetic ketoacidosis Code(s): E13.10 - OTH DIABETES MELLITUS WITH KETOACIDOSIS WITHOUT COMA Qualifiers: Diabetes mellitus type: type 1 Diabetes mellitus complication detail: without coma Qualified Code(s): E10.10 - Type 1 diabetes mellitus with ketoacidosis without coma (2) Sepsis Code(s): A41.9 - SEPSIS, UNSPECIFIED ORGANISM (3) Opioid dependence with withdrawal Code(s): F11.23 - OPIOID DEPENDENCE WITH WITHDRAWAL
[2017-07-28] MEDS: INSULIN SLIDING SCALE (NOVOLOG) 1 VIAL SQ SCH ×6 (02:39→21:39)
[2017-07-28] MEDS: VANCOMYCIN 1,250 MG in DEXTROSE 5%-WATER - 250 ML IVPB SCH (02:39)
[2017-07-28] MEDS ORDERED: ACETAMINOPHEN 325 MG TABLET (FP) ONE (04:07)
[2017-07-28] MEDS: morphine SULFATE 4 MG/ML VIAL IVPUSH PRN ×4 (04:11→21:38)
[2017-07-28 06:03] LABS: HEMATOCRIT 25.5 % (35.4-49); HEMOGLOBIN 8.7 GM/dL (11.7-16.9); MCHC 34.3 g/dl (32.0-35.9); MEAN CELL VOLUME 93.5 fl (80-96); MEAN PLT VOLUME 9.2 fl (7.5-11.1); PLATELET COUNT 131 K/MM3 (134-434); RBC 2.72 M/mm3 (4.00-5.60); RDW 18.9 % (11.9-15.9); WHITE BLOOD COUNT 14.8 K/mm3 (4.0-10.0)
[2017-07-28 06:08] LABS: SERUM IRON SATURATION 13 % (15-55); TOTAL IRON BINDING CAPACITY 127 ug/dL (250-450); TRANSFERRIN 97 mg/dL (200-370); UIBC 111 ug/dL (111-343)
[2017-07-28] MEDS: CYCLOBENZAPRINE HCL 10 MG TABLET (FP) PO SCH ×3 (06:13→21:27)
[2017-07-28] MEDS: GABAPENTIN 100 MG CAPSULE (FP) PO SCH ×3 (06:13→21:28)
[2017-07-28 06:28] LABS: ALK PHOS 308 U/L (45-117); ANION GAP 11 (8-16); BILIRUBIN,TOTAL 1.4 mg/dL (0.2-1.0); BLOOD UREA NITROGEN 11 mg/dL (7-18); CALCIUM 7.3 mg/dL (8.5-10.1); CHLORIDE 102 mmol/L (98-107); CO2 25 mmol/L (21-32); CREATININE 0.7 mg/dL (0.7-1.3); GLUCOSE,RANDOM 140 mg/dL (74-106); MAGNESIUM 1.6 mg/dL (1.8-2.4); PHOSPHOROUS 2.9 mg/dL (2.5-4.9); POTASSIUM 3.2 mmol/L (3.5-5.1); SGOT/AST 48 U/L (15-37); SGPT/ALT 73 U/L (12-78); SODIUM 138 mmol/L (136-145); TOT PROT 4.2 g/dl (6.4-8.2)
--- NOTE | 2017-07-28 06:50 | PN ---
Progress Note (short form) - Note Progress Note: ID Several concerns today: 1. Persistant MRSA bacteremia suggesting either drug failure or an endovascular focus including endocarditis. 2. Severe esophageal candidiasis in the absence of HIV WHY? 3. Tachycardia sinus in 140s 4, Severe chronic liver disease with untreated Hepatitis C in this 21 year old Selected Entries 07/27/17 07/28/17 22:00 06:00 Temperature 100 F H Pulse Rate 140 H Respiratory 26 H Rate Blood Pressure 108/65 O2 Sat by Pulse 100 Oximetry (%) Oxygen Flow 4 Rate HEENT NO conjuctival hemmorages Lung Clear Cor S1 S2 tach no murmur Abd Soft nontender Ext Left arm in a sling with surgical dressing Microbiology 07/26/17 15:30 Arm - Left Forearm Gram Stain - Final 07/24/17 00:00 Urine - Urine Clean Catch Urine Culture - Final S Aureus 07/23/17 23:35 Blood - Peripheral Venous Blood Culture - Final S Aureus Streptococcus Acidominimus 07/23/17 23:35 Blood - Peripheral Venous Blood Culture - Final S Aureus Streptococcus Acidominimus 07/27/17 09:20 Blood - Peripheral Venous Blood Culture - Preliminary Pending Organism 07/27/17 08:41 Blood - Peripheral Venous Blood Culture - Preliminary Pending Organism 07/26/17 15:30 Arm - Left Forearm Wound Culture - Preliminary Presumptive Mrsa (Pbp2a Pos) 07/26/17 08:20 Blood - Peripheral Venous Blood Culture - Preliminary Staphylococcus Latex Coag Pos 07/26/17 08:00 Blood - Peripheral Venous Blood Culture - Preliminary Staphylococcus Latex Coag Pos Laboratory Tests 07/24/17 07/26/17 07/27/17 15:00 05:55 06:15 WBC 8.1 D Hgb 8.8 L Hct 25.6 L Haptoglobin INR 1.02 BUN Creatinine Iron TIBC Iron Saturation Transferrin HIV 1&2 Antibody Screen Negative HIV P24 Antigen Negative 07/27/17 07/27/17 07/27/17 06:15 06:15 06:15 WBC Hgb Hct Haptoglobin 368 H INR BUN 14 Creatinine 0.7 Iron 16 L TIBC 127 L Iron Saturation 13 L Transferrin 97 L HIV 1&2 Antibody Screen HIV P24 Antigen 07/28/17 06:00 WBC Pending Hgb Pending Hct Pending Haptoglobin INR BUN Creatinine Iron TIBC Iron Saturation Transferrin HIV 1&2 Antibody Screen HIV P24 Antigen Assessment MRSA bacteremia ? Vanco failure ? endocarditis Suppurative thrombophlebitis Hepatitis C chronic liver disease fatty liver Severe anemia with transfusion requirement Polysubstance abuse Sinus tachycardia ? anemia and infection fever Plan Critical care time spent today with recommendations Switch to Daptomycin and Ceftaroline or what I refer to as "induction therapy for MRSA" ( Clinical Infectious diseases Maria A et al Earlier switch therapy for MRSA) Obtain hematology evaluation of anemia I would strongly advise PEG be done Check CBC today retic count rule out hemolysis CD4/CD8 lymphocyte rule out T cell depletion syndrome ( HIV neg) plus immunology eval down the road for Candidiasis ? Diflucan 200mg daily po karla Rojas MD
[2017-07-28] MEDS: FLUCONAZOLE 100 MG TABLET (UD) PO SCH (09:15)
[2017-07-28] MEDS: PANTOPRAZOLE 40 MG TABLET (FP) PO SCH ×2 (09:15→21:28)
[2017-07-28] MEDS: PRENATAL VITAMINS W/ FOLIC ACID TABLET (FP) PO SCH (09:16)
[2017-07-28] MEDS: NICOTINE 21 MG/24 HOURS TOPICAL PATCH TD SCH (09:16)
[2017-07-28] MEDS: cloNIDine HCL 0.1 MG TABLET PO SCH ×2 (09:17→21:27)
[2017-07-28] MEDS ORDERED: PT OWN MED DRAWER 7, Y5N ONE ×2 (09:39→21:17)
[2017-07-28] MEDS: SUCRALFATE 1 GM/10 ML UNIT DOSE CUPS PO SCH ×4 (09:42→21:27)
[2017-07-28] MEDS: CEFTAROLINE FOSAMIL ACETATE 600 MG in DEXTROSE 5%-WATER - 100 ML IVPB SCH ×2 (09:42→21:28)
[2017-07-28] MEDS: SODIUM CHLORIDE 1,000 ML IV SCH (09:49)
--- NOTE | 2017-07-28 09:53 | PN ---
Progress Note (short form) - Note Progress Note: Patient seen and examined in the ICU. Awake and alert. Reports pain in his left arm is better. Persistent bacteremia. Denies CP or SOB. OBJECTIVE: Intake & Output 07/25/17 07/26/17 07/27/17 07/28/17 23:59 23:59 23:59 23:59 Intake Total 3625 5075 2520 1850 Output Total 4000 765 4550 500 Balance -375 4310 -2030 1350 Weight 130 lb 12.8 oz 141 lb 12.116 oz 140 lb 3.2 oz 140 lb Last Vital Signs Temp Pulse Resp BP Pulse Ox 100 F H 132 H 22 108/71 100 07/28/17 06:00 07/28/17 08:00 07/28/17 08:00 07/28/17 08:00 07/27/17 22:00 Active Medications Clonidine (Catapres -) 0.1 mg PO BID [facility] Last Admin: 07/28/17 09:17 Dose: 0.1 mg Cyclobenzaprine HCl (Flexeril -) 10 mg PO TID [facility] Last Admin: 07/28/17 06:13 Dose: 10 mg Fluconazole (Diflucan -) 200 mg PO DAILY [facility] Stop: 08/09/17 13:45 Last Admin: 07/28/17 09:15 Dose: 200 mg Gabapentin (Neurontin -) 100 mg PO TID [facility] Last Admin: 07/28/17 06:13 Dose: 100 mg Sodium Chloride (Normal Saline -) 1,000 mls @ 100 mls/hr IV ASDIR [facility] Last Admin: 07/28/17 09:49 Dose: 100 mls/hr Daptomycin 560 mg/ Sodium (Chloride) 100 mls @ 200 mls/hr IVPB DAILY [facility] PRN Reason: Protocol Ceftaroline Fosamil 600 mg/ (Dextrose) 100 mls @ 200 mls/hr IVPB BID [facility] PRN Reason: Protocol Last Admin: 07/28/17 09:42 Dose: 200 mls/hr Insulin Aspart (Novolog Vial Sliding Scale -) 1 vial SQ Q4HPO [facility] PRN Reason: Protocol Last Admin: 07/28/17 06:13 Dose: 2 units Insulin Detemir (Levemir Vial) 15 units SQ HS [facility] Last Admin: 07/27/17 21:44 Dose: 15 units Methadone HCl (Dolophine -) 10 mg PO ONCE ONE Stop: 07/28/17 10:01 Last Admin: 07/28/17 09:15 Dose: 10 mg Methadone HCl (Dolophine -) 5 mg PO ONCE ONE Stop: 07/29/17 06:01 Morphine Sulfate (Morphine Sulfate) 2 mg IVPUSH Q4H PRN PRN Reason: PAIN LEVEL 6-10 Last Admin: 07/28/17 04:11 Dose: 2 mg Nicotine (Nicoderm Patch -) 21 mg TD DAILY [facility] Last Admin: 07/28/17 09:16 Dose: 21 mg Nicotine Polacrilex (Nicorette Gum -) 2 mg BUC Q2H PRN PRN Reason: NICOTINE REPLACEMENT RX Ondansetron HCl (Zofran Odt -) 8 mg SL Q6H PRN PRN Reason: NAUSEA AND/OR VOMITING Pantoprazole Sodium (Protonix -) 40 mg PO BID [facility] Last Admin: 07/28/17 09:15 Dose: 40 mg Multivit/Folic Acid/Iron ( Vitamins (Sjr) -) 1 tab PO DAILY [facility] Last Admin: 07/28/17 09:16 Dose: 1 tab Sucralfate (Carafate Oral Suspension -) 1 gm PO QID [facility] Last Admin: 07/28/17 09:42 Dose: 1 gm Thiamine HCl (Vitamin B1 -) 100 mg PO HS [facility] Last Admin: 07/27/17 21:09 Dose: 100 mg Gen: Awake and alert, NAD Heart: RRR Lung: decreased breath sounds at the bases Abd: soft, nontender Ext: LUE dressed and in a sling Laboratory Results - last 24 hr 07/27/17 07/27/17 07/27/17 06:15 06:15 06:15 WBC RBC Hgb Hct MCV MCH MCHC RDW Plt Count MPV Neutrophils % (Manual) 68.4 Band Neutrophils % 7.4 Lymphocytes % (Manual) 15.8 D Monocytes % (Manual) 3 L Eosinophils % (Manual) 0.0 Basophils % (Manual) 4.2 H D Myelocytes % (Man) 0 D Promyelocytes % (Man) 0 Nucleated RBC % 0 Metamyelocytes 0 D Hypochromia 0 Platelet Estimate Decreased Polychromasia 0 Poikilocytosis 0 Anisocytosis 2+ Microcytosis 2+ Macrocytosis 0 Tear Drop Cells 1+ Stomatocytes 1+ Haptoglobin 368 H Sodium Potassium Chloride Carbon Dioxide Anion Gap BUN Creatinine Creat Clearance w eGFR POC Glucometer Random Glucose Calcium Phosphorus Magnesium Iron 16 L TIBC 127 L Iron Saturation 13 L Transferrin 97 L Total Bilirubin AST ALT Alkaline Phosphatase Total Protein Albumin Random Vancomycin 07/27/17 07/27/17 07/27/17 09:20 11:23 15:18 WBC RBC Hgb Hct MCV MCH MCHC RDW Plt Count MPV Neutrophils % (Manual) Band Neutrophils % Lymphocytes % (Manual) Monocytes % (Manual) Eosinophils % (Manual) Basophils % (Manual) Myelocytes % (Man) Promyelocytes % (Man) Nucleated RBC % Metamyelocytes Hypochromia Platelet Estimate Polychromasia Poikilocytosis Anisocytosis Microcytosis Macrocytosis Tear Drop Cells Stomatocytes Haptoglobin Sodium Potassium Chloride Carbon Dioxide Anion Gap BUN Creatinine Creat Clearance w eGFR POC Glucometer 302.25527 276.72017 Random Glucose Calcium Phosphorus Magnesium Iron TIBC Iron Saturation Transferrin Total Bilirubin AST ALT Alkaline Phosphatase Total Protein Albumin Random Vancomycin 16.278 07/27/17 07/27/17 07/28/17 18:28 21:42 05:40 WBC RBC Hgb Hct MCV MCH MCHC RDW Plt Count MPV Neutrophils % (Manual) Band Neutrophils % Lymphocytes % (Manual) Monocytes % (Manual) Eosinophils % (Manual) Basophils % (Manual) Myelocytes % (Man) Promyelocytes % (Man) Nucleated RBC % Metamyelocytes Hypochromia Platelet Estimate Polychromasia Poikilocytosis Anisocytosis Microcytosis Macrocytosis Tear Drop Cells Stomatocytes Haptoglobin Sodium 138 Potassium 3.2 L Chloride 102 Carbon Dioxide 25 Anion Gap 11 BUN 11 D Creatinine 0.7 Creat Clearance w eGFR > 60 POC Glucometer 142.85095 [phone] Random Glucose 140 H D Calcium 7.3 L Phosphorus 2.9 D Magnesium 1.6 L Iron TIBC Iron Saturation Transferrin Total Bilirubin 1.4 H AST 48 H D ALT 73 D Alkaline Phosphatase 308 H Total Protein 4.2 L Albumin 1.0 L Random Vancomycin 07/28/17 06:00 WBC 14.8 H D RBC 2.72 L Hgb 8.7 L Hct 25.5 L MCV 93.5 MCH 32.0 MCHC 34.3 RDW 18.9 H Plt Count 131 L D MPV 9.2 Neutrophils % (Manual) Band Neutrophils % Lymphocytes % (Manual) Monocytes % (Manual) Eosinophils % (Manual) Basophils % (Manual) Myelocytes % (Man) Promyelocytes % (Man) Nucleated RBC % Metamyelocytes Hypochromia Platelet Estimate Polychromasia Poikilocytosis Anisocytosis Microcytosis Macrocytosis Tear Drop Cells Stomatocytes Haptoglobin Sodium Potassium Chloride Carbon Dioxide Anion Gap BUN Creatinine Creat Clearance w eGFR POC Glucometer Random Glucose Calcium Phosphorus Magnesium Iron TIBC Iron Saturation Transferrin Total Bilirubin AST ALT Alkaline Phosphatase Total Protein Albumin Random Vancomycin ASSESSMENT AND PLAN: Diabetic Ketoacidosis improving LUE Abscess Gram Positive Bacteremia Septic Shock Thrombocytopenia Acute Kidney Injury improving Lactic Acidosis +Troponins likely Demand Ischemia Elevated LFTs Metabolic Derangements IVDU/Polysubstance Abuse Anemia - IVF - monitor BGM, BMP - replete lytes - IV antibiotics per ID - monitor urine output, creatinine - Will need PEG - monitor H/H - protonix - continue detox - Follow labs Dr Aiken Critical care time spent in reviewing chart, evaluating patient and formulating plan 36min
[2017-07-28] MEDS ORDERED: METHADONE HCL 10 MG TABLET PO ONE (10:00)
--- NOTE | 2017-07-28 10:09 | PN ---
Progress Note, Physician Chief Complaint: IVDA with left arm cellulitis and infected thrombophlebitis History of Present Illness: 21yo LHD male PMH type 1 DM, current IV heroin user, Hepatitis C presented with altered mental status and generalized weakness. He remembers being dropped off in the ER. He is less lethargic today. Complains of pain. - Current Medication List Current Medications: Active Medications Clonidine (Catapres -) 0.1 mg PO BID [facility] Last Admin: 07/28/17 09:17 Dose: 0.1 mg Cyclobenzaprine HCl (Flexeril -) 10 mg PO TID [facility] Last Admin: 07/28/17 06:13 Dose: 10 mg Fluconazole (Diflucan -) 200 mg PO DAILY [facility] Stop: 08/09/17 13:45 Last Admin: 07/28/17 09:15 Dose: 200 mg Gabapentin (Neurontin -) 100 mg PO TID [facility] Last Admin: 07/28/17 06:13 Dose: 100 mg Daptomycin 560 mg/ Sodium (Chloride) 100 mls @ 200 mls/hr IVPB DAILY [facility] PRN Reason: Protocol Ceftaroline Fosamil 600 mg/ (Dextrose) 100 mls @ 200 mls/hr IVPB BID [facility] PRN Reason: Protocol Last Admin: 07/28/17 09:42 Dose: 200 mls/hr Potassium Chloride 40 meq/ (Sodium Chloride) 1,020 mls @ 100 mls/hr IVPB ASDIR [facility] Insulin Aspart (Novolog Vial Sliding Scale -) 1 vial SQ Q4HPO [facility] PRN Reason: Protocol Last Admin: 07/28/17 06:13 Dose: 2 units Insulin Detemir (Levemir Vial) 15 units SQ HS [facility] Last Admin: 07/27/17 21:44 Dose: 15 units Magnesium Sulfate (Magnesium Sulfate) 2 gm IVPB ONCE ONE Stop: 07/28/17 09:57 Methadone HCl (Dolophine -) 5 mg PO ONCE ONE Stop: 07/29/17 06:01 Morphine Sulfate (Morphine Sulfate) 2 mg IVPUSH Q4H PRN PRN Reason: PAIN LEVEL 6-10 Last Admin: 07/28/17 04:11 Dose: 2 mg Nicotine (Nicoderm Patch -) 21 mg TD DAILY [facility] Last Admin: 07/28/17 09:16 Dose: 21 mg Nicotine Polacrilex (Nicorette Gum -) 2 mg BUC Q2H PRN PRN Reason: NICOTINE REPLACEMENT RX Ondansetron HCl (Zofran Odt -) 8 mg SL Q6H PRN PRN Reason: NAUSEA AND/OR VOMITING Pantoprazole Sodium (Protonix -) 40 mg PO BID [facility] Last Admin: 07/28/17 09:15 Dose: 40 mg Potassium Chloride (K-Dur -) 40 meq PO ONCE ONE Stop: 07/28/17 10:16 Potassium Chloride (K-Dur -) 40 meq PO ONCE ONE Stop: 07/28/17 18:01 Multivit/Folic Acid/Iron ( Vitamins (Sjr) -) 1 tab PO DAILY [facility] Last Admin: 07/28/17 09:16 Dose: 1 tab Sucralfate (Carafate Oral Suspension -) 1 gm PO QID [facility] Last Admin: 07/28/17 09:42 Dose: 1 gm Thiamine HCl (Vitamin B1 -) 100 mg PO HS [facility] Last Admin: 07/27/17 21:09 Dose: 100 mg - Objective Vital Signs: Vital Signs Temperature 100 F H 07/28/17 06:00 Pulse Rate 132 H 07/28/17 08:00 Respiratory Rate 22 07/28/17 08:00 Blood Pressure 108/71 07/28/17 08:00 O2 Sat by Pulse Oximetry (%) 100 07/27/17 22:00 Vital Signs Period Temp Pulse Resp BP Sys/Nolan Pulse Ox Last 24 Hr 98.8 F-101 F 103-142 21-32 108-128/65-87 100-100 Intake & Output 07/27/17 07/28/17 07/28/17 23:59 07:59 15:59 Intake Total 1310 1850 Output Total 800 500 Balance 510 1350 Weight 140 lb Intake: IV 400 1200 Normal Saline - 1,000 ml 400 1200 @ 100 mls/hr IV ASDIR [facility] Rx#:[id number] IVPB 350 250 Oral 460 400 Oral Supplement 100 Output: Urine 800 500 Void 800 500 Other: Voiding Method Indwelling Catheter Bowel Movement Yes Yes Weight Measurement Method [facility] Constitutional: Yes: Well Nourished, No Distress, Calm Eyes: Yes: Conjunctiva Clear, EOM Intact HENT: Yes: Atraumatic, Normocephalic Neck: Yes: Supple, Trachea Midline Cardiovascular: Yes: Regular Rate and Rhythm, S1, S2. No: Murmur Respiratory: Yes: Regular, CTA Bilaterally Gastrointestinal: Yes: Normal Bowel Sounds, Soft. No: Tenderness ...Rectal Exam: Yes: Deferred Genitourinary: No: CVA Tenderness - Left, CVA Tenderness - Right Musculoskeletal: Yes: Muscle Pain, Muscle Weakness Extremities: No: Cool, Cyanosis Wound/Incision: Yes: Reddened (erythema and edema reaolving), Unapproximated ( two linear incison left forearm/ antecubital fossa, clean soft tissue base.). No: Bleeding Neurological: Yes: Alert, Oriented Psychiatric: Yes: Alert, Oriented Labs: CBC, BMP 07/28/17 06:00 Microbiology 07/26/17 08:20 Blood - Peripheral Venous Blood Culture - Preliminary Staphylococcus Latex Coag Pos 07/26/17 08:00 Blood - Peripheral Venous Blood Culture - Preliminary Staphylococcus Latex Coag Pos 07/27/17 09:20 Blood - Peripheral Venous Blood Culture - Preliminary Staphylococcus Latex Coag Pos 07/27/17 08:41 Blood - Peripheral Venous Blood Culture - Preliminary Staphylococcus Latex Coag Pos 07/26/17 15:30 Arm - Left Forearm Gram Stain - Final 07/26/17 15:30 Arm - Left Forearm Wound Culture - Preliminary Presumptive Mrsa (Pbp2a Pos) 07/23/17 23:35 Blood - Peripheral Venous Blood Culture - Final S Aureus Streptococcus Acidominimus 07/23/17 23:35 Blood - Peripheral Venous Blood Culture - Final S Aureus Streptococcus Acidominimus 07/24/17 00:00 Urine - Urine Clean Catch Urine Culture - Final S Aureus 07/28/17 05:40 INR, PTT INR 1.02 (0.82-1.09) 07/26/17 05:55 Fibrinogen 788.0 mg/dL (238-498) H 07/27/17 06:15 Problem List - Problems (1) MRSA (methicillin resistant Staphylococcus aureus) septicemia Assessment/Plan: 21 yo LHD male with Hepatitis C, DM type 1 in DKA with aggressive left forearm cellulitis, thrombophlebitis, and draining abscess at the site of infecting IV drugs. MRSA septicemia, secondary to injecting heroin with contaminated needles. POD#2 s/p I&D and debridement of infected thrombophlebitis left forearm. Erythema and edema resolving, operative site is clean, compartment are soft. Left arm remains suspended to reduce edema. WBC now up to 14.8, all blood cultures are positive. He is on daptomycin per ID. Dressing Left forearm/ antecubital fossa changed Wound Measurement: two linear [id number] healthy soft tissue and veins no purulent drainage Dressing instructions: 1/2inch iodoform packing, 4X4 gauze sponges, kerlex and tape IV antibiotics per ID trend CBC glycemic control left arm elevation above heart level in stockinette This patient is critically ill. Time spent reviewing chart, examining patient, talking with providers and/or family and documentation is 35 minutes Code(s): A41.02 - SEPSIS DUE TO METHICILLIN RESISTANT STAPHYLOCOCCUS AUREUS (2) Thrombophlebitis arm Code(s): I80.8 - PHLEBITIS AND THROMBOPHLEBITIS OF OTHER SITES (3) Abscess of forearm Code(s): L02.419 - CUTANEOUS ABSCESS OF LIMB, UNSPECIFIED (4) Opioid dependence with withdrawal Code(s): F11.23 - OPIOID DEPENDENCE WITH WITHDRAWAL (5) Diabetes Code(s): E11.9 - TYPE 2 DIABETES MELLITUS WITHOUT COMPLICATIONS Qualifiers: Diabetes mellitus type: type 1 Diabetes mellitus complication status: without complication Qualified Code(s): E10.9 - Type 1 diabetes mellitus without complications
[2017-07-28] MEDS ORDERED: POTASSIUM CHLORIDE TABS 20 MEQ TABLET.ER (FP) PO ONE ×2 (10:15→18:00)
[2017-07-28] MEDS ORDERED: MAGNESIUM SULF 50% (8.12 MEQ/2 ML-1 GM VIAL) IVPB ONE (10:15)
[2017-07-28] MEDS: SODIUM CHLORIDE IVPB SCH (11:21)
[2017-07-28] MEDS: DAPTOMYCIN IVPB SCH (11:21)
[2017-07-28] MEDS: POTASSIUM CHLORIDE 40 MEQ in SODIUM CHLORIDE 1,000 ML IVPB SCH ×2 (12:00→20:00)
--- NOTE | 2017-07-28 12:10 | CONSULT ---
Consult Consult Specialty:: Hematology/Oncology Reason for Consultation:: New Onset Anemia - History of Present Illness Chief Complaint: Right arm pain, weakness History of Present Illness: is a 21 y/o male with Hx of type I diabetes and insulin non- compliance, multi-substance abuse including heroin injection, Hep C who was admitted with AMS, weakness, diabetic ketoacidosis and a left arm abscess. He ws treated for DKA , unerwent an I&D of the left arm which is now elevated in a stockinette. He was spiking fevers and blood cultures are now positive for MRSA for which he is being treated with broad spectrum antibiotics. Hematology/ Oncology is being called to evaluate the patient for his anemia. - History Source History Provided By: Patient, Medical Record Limitations to Obtaining History: Clinical Condition - Past Medical History Infectious Disease: Yes: Other (HEP C) Psych: Yes: Addictions Endocrine: Yes: Diabetes Mellitus Additional Medical History: polysubstance use - Alcohol/Substance Use Hx Alcohol Use: No History of Substance Use: reports: Cocaine, Heroin, Marijuana - Smoking History Smoking history: Unknown if ever smoked Have you smoked in the past 12 months: Yes Aproximately how many cigarettes per day: 20 - Social History Usual Living Arrangement: With Significant Other ADL: Independent Home Medications - Allergies Allergies/Adverse Reactions: Allergies Allergy/AdvReac Type Severity Reaction Status Date / Time No Known Allergies Allergy Verified 07/23/17 23:11 - Home Medications Home Medications: Ambulatory Orders Insulin Aspart [Novolog] 100 unit SQ ASDIR 07/01/15 Insulin Glargine,Hum.rec.anlog [Lantus Solostar PEN (NF)] 30 units SQ HS Family Disease History - Family Disease History Family Disease History: Other: Father (healthy), Mother (healthy), Brother (IDDM ) Review of Systems - Review of Systems Constitutional: reports: No Symptoms Eyes: reports: No Symptoms HENT: reports: No Symptoms Neck: reports: No Symptoms Cardiovascular: reports: No Symptoms Respiratory: reports: No Symptoms Gastrointestinal: reports: No Symptoms Genitourinary: reports: No Symptoms Breasts: reports: No Symptoms Reported Musculoskeletal: reports: Extremity Pain Integumentary: reports: No Symptoms Neurological: reports: Confusion, Weakness Endocrine: reports: No Symptoms Hematology/Lymphatic: reports: No Symptoms Psychiatric: reports: No Symptoms Physical Exam Vital Signs: Vital Signs Temperature 100 F H 07/28/17 06:00 Pulse Rate 132 H 07/28/17 08:00 Respiratory Rate 22 07/28/17 08:00 Blood Pressure 108/71 07/28/17 08:00 O2 Sat by Pulse Oximetry (%) 100 07/27/17 22:00 Constitutional: Yes: Well Nourished Eyes: Yes: WNL, Conjunctiva Clear, EOM Intact HENT: Yes: WNL, Atraumatic, Normocephalic Neck: Yes: WNL, Supple, Trachea Midline Cardiovascular: Yes: WNL, Regular Rate and Rhythm Respiratory: Yes: WNL, Regular, CTA Bilaterally Gastrointestinal: Yes: WNL, Normal Bowel Sounds Renal/: Yes: WNL Musculoskeletal: Yes: Other (left arm erythematous and raised upwards in a sling stockinette) Extremities: Yes: WNL Edema: No Integumentary: Yes: WNL Neurological: Yes: WNL Psychiatric: Yes: Alert, Oriented Labs: CBC, BMP 07/28/17 06:00 07/28/17 05:40 Assessment/Plan 21 y/o male with Type 1 DM, multidrug use presented with DKA (now corrected), heroin OD, LUE abscess (s/p I&D), esophageal candidiasis, chronic Hep C and with MRSA bacteremia on broad spectrum antibiotics with ceftaroline and daptomycin Patient has anemia and mild thrombocytopenia. Although MCV is wnl, iron panel shows s/p iron deficiency anemia. Given his history pf chronic Hep C, Type 1 DM and fulminant infection, there is likely a component of anemia of chronic disease as well. This evident by increased acute phase reactants - Fibrinogen, D -dimer. -recommend checking a serum ferritin -awaiting Hep C VL, ESR -recommend checking CD4/CD8 counts to see if patient has low CD4 counts accounting for infections and esophageal candidiasis -at this time, he is not transfusion dependant, continue to trend daily CBC -Will continue to follow with you
[2017-07-28] MEDS ORDERED: INSULIN REGULAR HUMAN 100 UNITS/ML *VIAL ONE (12:25)
[2017-07-28] MEDS ORDERED: INSULIN (NOVOLOG) ASPART 100 UNITS/ML 10ML VIAL ONE ×2 (15:54→19:15)
[2017-07-28] MEDS: INSULIN DETEMIR 100 UNITS/ML MDV SQ SCH (21:27)
[2017-07-28] MEDS: THIAMINE HCL 100 MG TABLET (FP) PO SCH (21:28)
[2017-07-29] MEDS: INSULIN SLIDING SCALE (NOVOLOG) 1 VIAL SQ SCH ×6 (02:00→22:12)
--- NOTE | 2017-07-29 02:40 | PN ---
Progress Note, Physician History of Present Illness: No new complaints - Current Medication List Current Medications: Active Medications Clonidine (Catapres -) 0.1 mg PO BID [facility] Last Admin: 07/28/17 21:27 Dose: 0.1 mg Cyclobenzaprine HCl (Flexeril -) 10 mg PO TID [facility] Last Admin: 07/28/17 21:27 Dose: 10 mg Fluconazole (Diflucan -) 200 mg PO DAILY [facility] Stop: 08/09/17 13:45 Last Admin: 07/28/17 09:15 Dose: 200 mg Gabapentin (Neurontin -) 100 mg PO TID [facility] Last Admin: 07/28/17 21:28 Dose: 100 mg Daptomycin 560 mg/ Sodium (Chloride) 100 mls @ 200 mls/hr IVPB DAILY [facility] PRN Reason: Protocol Last Admin: 07/28/17 11:21 Dose: 200 mls/hr Ceftaroline Fosamil 600 mg/ (Dextrose) 100 mls @ 200 mls/hr IVPB BID [facility] PRN Reason: Protocol Last Admin: 07/28/17 21:28 Dose: 200 mls/hr Potassium Chloride 40 meq/ (Sodium Chloride) 1,020 mls @ 100 mls/hr IVPB Q10H [facility] Last Admin: 07/28/17 20:00 Dose: 100 mls/hr Insulin Aspart (Novolog Vial Sliding Scale -) 1 vial SQ Q4HPO [facility] PRN Reason: Protocol Last Admin: 07/28/17 21:39 Dose: 6 units Insulin Detemir (Levemir Vial) 15 units SQ HS [facility] Last Admin: 07/28/17 21:27 Dose: 15 units Methadone HCl (Dolophine -) 5 mg PO ONCE ONE Stop: 07/29/17 06:01 Morphine Sulfate (Morphine Sulfate) 2 mg IVPUSH Q4H PRN PRN Reason: PAIN LEVEL 6-10 Last Admin: 07/28/17 21:38 Dose: 2 mg Nicotine (Nicoderm Patch -) 21 mg TD DAILY [facility] Last Admin: 07/28/17 09:16 Dose: 21 mg Nicotine Polacrilex (Nicorette Gum -) 2 mg BUC Q2H PRN PRN Reason: NICOTINE REPLACEMENT RX Ondansetron HCl (Zofran Odt -) 8 mg SL Q6H PRN PRN Reason: NAUSEA AND/OR VOMITING Pantoprazole Sodium (Protonix -) 40 mg PO BID [facility] Last Admin: 07/28/17 21:28 Dose: 40 mg Multivit/Folic Acid/Iron ( Vitamins (Sjr) -) 1 tab PO DAILY [facility] Last Admin: 07/28/17 09:16 Dose: 1 tab Sucralfate (Carafate Oral Suspension -) 1 gm PO QID [facility] Last Admin: 07/28/17 21:27 Dose: 1 gm Thiamine HCl (Vitamin B1 -) 100 mg PO HS [facility] Last Admin: 07/28/17 21:28 Dose: 100 mg - Objective Vital Signs: Vital Signs Temperature 100.2 F H 07/29/17 02:00 Pulse Rate 136 H 07/29/17 02:00 Respiratory Rate 18 07/29/17 02:00 Blood Pressure 136/73 07/29/17 02:00 O2 Sat by Pulse Oximetry (%) 100 07/28/17 22:00 Cardiovascular: Yes: WNL, Regular Rate and Rhythm Respiratory: Yes: WNL, Regular, CTA Bilaterally Gastrointestinal: Yes: WNL, Normal Bowel Sounds, Soft Extremities: Yes: Other (LUE warmth/swelling) Labs: CBC, BMP 07/28/17 06:00 07/28/17 05:40 INR, PTT INR 1.02 (0.82-1.09) 07/26/17 05:55 Fibrinogen 788.0 mg/dL (238-498) H 07/27/17 06:15 Problem List - Problems (1) Diabetic ketoacidosis Code(s): E13.10 - OTH DIABETES MELLITUS WITH KETOACIDOSIS WITHOUT COMA Qualifiers: Diabetes mellitus type: type 1 Diabetes mellitus complication detail: without coma Qualified Code(s): E10.10 - Type 1 diabetes mellitus with ketoacidosis without coma (2) Sepsis Code(s): A41.9 - SEPSIS, UNSPECIFIED ORGANISM (3) Opioid dependence with withdrawal Code(s): F11.23 - OPIOID DEPENDENCE WITH WITHDRAWAL
[2017-07-29] MEDS: POTASSIUM CHLORIDE 40 MEQ in SODIUM CHLORIDE 1,000 ML IVPB SCH ×2 (05:30→18:30)
[2017-07-29] MEDS ORDERED: METHADONE HCL 5 MG TABLET PO ONE ×2 (06:00)
[2017-07-29] MEDS: CYCLOBENZAPRINE HCL 10 MG TABLET (FP) PO SCH ×3 (06:27→22:10)
[2017-07-29] MEDS: GABAPENTIN 100 MG CAPSULE (FP) PO SCH ×3 (06:27→22:11)
[2017-07-29] MEDS: morphine SULFATE 4 MG/ML VIAL IVPUSH PRN ×4 (06:27→22:54)
[2017-07-29 06:39] LABS: HEMATOCRIT 24.3 % (35.4-49); HEMOGLOBIN 8.1 GM/dL (11.7-16.9); MCH 31.6 pg (25.7-33.7); MCHC 33.5 g/dl (32.0-35.9); MEAN CELL VOLUME 94.6 fl (80-96); MEAN PLT VOLUME 9.2 fl (7.5-11.1); PLATELET COUNT 243 K/MM3 (134-434); RBC 2.57 M/mm3 (4.00-5.60); RDW 18.4 % (11.9-15.9)
[2017-07-29 07:04] LABS: ALBUMIN 1.1 g/dl (3.4-5.0); ANION GAP 8 (8-16); BLOOD UREA NITROGEN 11 mg/dL (7-18); CHLORIDE 105 mmol/L (98-107); CO2 26 mmol/L (21-32); CREATININE 0.6 mg/dL (0.7-1.3); GLUCOSE,RANDOM 100 mg/dL (74-106); MAGNESIUM 1.5 mg/dL (1.8-2.4); SGOT/AST 23 U/L (15-37); SGPT/ALT 50 U/L (12-78); SODIUM 139 mmol/L (136-145)
[2017-07-29 07:07] LABS: ALK PHOS 293 U/L (45-117); BILIRUBIN,TOTAL 1.3 mg/dL (0.2-1.0); TOT PROT 4.6 g/dl (6.4-8.2)
[2017-07-29] MEDS ORDERED: PT OWN MED DRAWER 7, Y5N ONE ×4 (08:30→22:01)
--- NOTE | 2017-07-29 10:08 | PN ---
Progress Note (short form) - Note Progress Note: Patient seen and examined in the ICU. Awake and alert. Reports pain in his left arm is better. Persistent bacteremia. Repeat is still pending. Denies CP or SOB. OBJECTIVE: Intake & Output 07/26/17 07/27/17 07/28/17 07/29/17 23:59 23:59 23:59 23:59 Intake Total 5075 2520 2250 1500 Output Total 765 4550 2900 1000 Balance 4310 -2030 -650 500 Weight 141 lb 12.116 oz 140 lb 3.2 oz 140 lb 138 lb Last Vital Signs Temp Pulse Resp BP Pulse Ox 100.2 F H 138 H 18 106/77 100 07/29/17 02:00 07/29/17 06:00 07/29/17 06:00 07/29/17 06:00 07/28/17 22:00 Active Medications Clonidine (Catapres -) 0.1 mg PO BID [facility] Last Admin: 07/28/17 21:27 Dose: 0.1 mg Cyclobenzaprine HCl (Flexeril -) 10 mg PO TID [facility] Last Admin: 07/29/17 06:27 Dose: 10 mg Fluconazole (Diflucan -) 200 mg PO DAILY [facility] Stop: 08/09/17 13:45 Last Admin: 07/28/17 09:15 Dose: 200 mg Gabapentin (Neurontin -) 100 mg PO TID [facility] Last Admin: 07/29/17 06:27 Dose: 100 mg Daptomycin 560 mg/ Sodium (Chloride) 100 mls @ 200 mls/hr IVPB DAILY [facility] PRN Reason: Protocol Last Admin: 07/28/17 11:21 Dose: 200 mls/hr Ceftaroline Fosamil 600 mg/ (Dextrose) 100 mls @ 200 mls/hr IVPB BID [facility] PRN Reason: Protocol Last Admin: 07/28/17 21:28 Dose: 200 mls/hr Potassium Chloride 40 meq/ (Sodium Chloride) 1,020 mls @ 100 mls/hr IVPB Q10H [facility] Last Admin: 07/29/17 05:30 Dose: 100 mls/hr Insulin Aspart (Novolog Vial Sliding Scale -) 1 vial SQ Q4HPO [facility] PRN Reason: Protocol Last Admin: 07/29/17 06:31 Dose: Not Given Insulin Detemir (Levemir Vial) 15 units SQ HS [facility] Last Admin: 07/28/17 21:27 Dose: 15 units Morphine Sulfate (Morphine Sulfate) 2 mg IVPUSH Q4H PRN PRN Reason: PAIN LEVEL 6-10 Last Admin: 07/29/17 06:27 Dose: 2 mg Nicotine (Nicoderm Patch -) 21 mg TD DAILY [facility] Last Admin: 07/28/17 09:16 Dose: 21 mg Nicotine Polacrilex (Nicorette Gum -) 2 mg BUC Q2H PRN PRN Reason: NICOTINE REPLACEMENT RX Ondansetron HCl (Zofran Odt -) 8 mg SL Q6H PRN PRN Reason: NAUSEA AND/OR VOMITING Pantoprazole Sodium (Protonix -) 40 mg PO BID [facility] Last Admin: 07/28/17 21:28 Dose: 40 mg Multivit/Folic Acid/Iron ( Vitamins (Sjr) -) 1 tab PO DAILY [facility] Last Admin: 07/28/17 09:16 Dose: 1 tab Sucralfate (Carafate Oral Suspension -) 1 gm PO QID [facility] Last Admin: 07/28/17 21:27 Dose: 1 gm Thiamine HCl (Vitamin B1 -) 100 mg PO HS [facility] Last Admin: 07/28/17 21:28 Dose: 100 mg Gen: Awake and alert, NAD Heart: RRR Lung: decreased breath sounds at the bases Abd: soft, nontender Ext: LUE dressed and in a sling Laboratory Results - last 24 hr 07/23/17 07/28/17 07/28/17 23:45 05:43 07:35 WBC RBC Hgb Hct MCV MCH MCHC RDW Plt Count MPV Retic Count Sodium Potassium Chloride Carbon Dioxide Anion Gap BUN Creatinine Creat Clearance w eGFR POC Glucometer [phone] Random Glucose Calcium Magnesium Total Bilirubin AST ALT Alkaline Phosphatase Total Protein Albumin Hepatitis C Antibody >11.0 H Blood Type B POSITIVE Antibody Screen Negative Crossmatch See Detail 07/28/17 07/28/17 07/28/17 12:12 15:27 18:12 WBC RBC Hgb Hct MCV MCH MCHC RDW Plt Count MPV Retic Count Sodium Potassium Chloride Carbon Dioxide Anion Gap BUN Creatinine Creat Clearance w eGFR POC Glucometer [phone] [phone] Random Glucose Calcium Magnesium Total Bilirubin AST ALT Alkaline Phosphatase Total Protein Albumin Hepatitis C Antibody Blood Type Antibody Screen Crossmatch 07/28/17 07/29/17 07/29/17 21:35 02:57 05:55 WBC RBC Hgb Hct MCV MCH MCHC RDW Plt Count MPV Retic Count 0.73 D Sodium Potassium Chloride Carbon Dioxide Anion Gap BUN Creatinine Creat Clearance w eGFR POC Glucometer [phone] Random Glucose Calcium Magnesium Total Bilirubin AST ALT Alkaline Phosphatase Total Protein Albumin Hepatitis C Antibody Blood Type Antibody Screen Crossmatch 07/29/17 07/29/17 05:55 05:55 WBC 22.0 H D RBC 2.57 L Hgb 8.1 L Hct 24.3 L MCV 94.6 MCH 31.6 MCHC 33.5 RDW 18.4 H Plt Count 243 D MPV 9.2 Retic Count Sodium 139 Potassium 4.0 D Chloride 105 Carbon Dioxide 26 Anion Gap 8 BUN 11 Creatinine 0.6 L Creat Clearance w eGFR > 60 POC Glucometer Random Glucose 100 D Calcium 7.0 L Magnesium 1.5 L Total Bilirubin 1.3 H AST 23 D ALT 50 D Alkaline Phosphatase 293 H Total Protein 4.6 L Albumin 1.1 L Hepatitis C Antibody Blood Type Antibody Screen Crossmatch ASSESSMENT AND PLAN: Diabetic Ketoacidosis improving LUE Abscess Gram Positive Bacteremia Septic Shock Thrombocytopenia Acute Kidney Injury improving Lactic Acidosis +Troponins likely Demand Ischemia Elevated LFTs Metabolic Derangements IVDU/Polysubstance Abuse Anemia - IVF - monitor BGM, BMP - replete lytes - IV antibiotics per ID - monitor urine output, creatinine - Will need PEG due to persistent bacteremia - monitor H/H - protonix - continue detox - Replete lytes Dr Aiken Critical care time spent in reviewing chart, evaluating patient and formulating plan 36min
[2017-07-29] MEDS: cloNIDine HCL 0.1 MG TABLET PO SCH ×2 (10:09→22:10)
[2017-07-29] MEDS: FLUCONAZOLE 100 MG TABLET (UD) PO SCH (10:09)
[2017-07-29] MEDS: CEFTAROLINE FOSAMIL ACETATE 600 MG in DEXTROSE 5%-WATER - 100 ML IVPB SCH ×2 (10:09→22:09)
[2017-07-29] MEDS: PANTOPRAZOLE 40 MG TABLET (FP) PO SCH ×2 (10:09→22:12)
[2017-07-29] MEDS ORDERED: MAGNESIUM SULF 50% (8.12 MEQ/2 ML-1 GM VIAL) IVPB ONE (10:15)
[2017-07-29] MEDS: DAPTOMYCIN IVPB SCH (10:34)
[2017-07-29] MEDS: SODIUM CHLORIDE IVPB SCH (10:34)
[2017-07-29] MEDS: NICOTINE 21 MG/24 HOURS TOPICAL PATCH TD SCH (10:35)
[2017-07-29] MEDS: SUCRALFATE 1 GM/10 ML UNIT DOSE CUPS PO SCH ×4 (10:35→22:09)
[2017-07-29] MEDS: PRENATAL VITAMINS W/ FOLIC ACID TABLET (FP) PO SCH (10:37)
--- NOTE | 2017-07-29 11:14 | PN ---
Progress Note (short form) - Note Progress Note: Hematology/Oncology Follow-up Note S: Patient feels much better today, he is reclining in bed and able to converse with me. He says pain in his left arm is decreased now. Last Vital Signs Temp Pulse Resp BP Pulse Ox 100.2 F H 138 H 18 106/77 100 07/29/17 02:00 07/29/17 06:00 07/29/17 06:00 07/29/17 06:00 07/28/17 22:00 PE : AOx3, pleasant, awake PERRLA, EOMI, poor dentition left arm is elevated in a sling stockinette Tachycardia, CTA (BL) Soft abdomen 1+ pitting edema, LE in SCD's nonfocal neuro exam CBC, BMP 07/29/17 05:55 Current Medications Generic Name Dose Route Start Last Admin Trade Name Freq PRN Reason Stop Dose Admin Clonidine 0.1 mg 07/24/17 22:00 07/29/17 10:09 Catapres - PO 0.1 mg BID ROBIN Administration Cyclobenzaprine HCl 10 mg 07/24/17 22:00 07/29/17 06:27 Flexeril - PO 10 mg TID ROBIN Administration Fluconazole 200 mg 07/26/17 13:45 07/29/17 10:09 Diflucan - PO 08/09/17 13:45 200 mg DAILY ROBIN Administration Gabapentin 100 mg 07/24/17 22:00 07/29/17 06:27 Neurontin - PO 100 mg TID ROBIN Administration Daptomycin 560 mg/ Sodium 100 mls @ 200 mls/hr 07/28/17 10:00 07/29/17 10:34 Chloride IVPB 200 mls/hr DAILY ROBIN Administration Protocol Ceftaroline Fosamil 600 mg/ 100 mls @ 200 mls/hr 07/28/17 10:00 07/29/17 10: 09 Dextrose IVPB 200 mls/hr BID ROBIN Administration Protocol Potassium Chloride 40 meq/ 1,020 mls @ 100 mls/hr 07/28/17 09:58 07/29/17 05: 30 Sodium Chloride IVPB 100 mls/hr Q10H ROBIN Administration Insulin Aspart 1 vial 07/24/17 23:45 07/29/17 10:35 Novolog Vial Sliding Scale - SQ 2 units Q4HPO ROBIN Administration Protocol Insulin Detemir 15 units 07/25/17 22:00 07/28/17 21:27 Levemir Vial SQ 15 units HS ROBIN Administration Morphine Sulfate 2 mg 07/27/17 12:52 07/29/17 06:27 Morphine Sulfate IVPUSH 2 mg Q4H PRN Administration PAIN LEVEL 6-10 Nicotine 21 mg 07/24/17 18:05 07/29/17 10:35 Nicoderm Patch - TD 21 mg DAILY ROBIN Administration Nicotine Polacrilex 2 mg 07/24/17 10:44 Nicorette Gum - BUC Q2H PRN NICOTINE REPLACEMENT RX Ondansetron HCl 8 mg 07/24/17 18:04 Zofran Odt - SL Q6H PRN NAUSEA AND/OR VOMITING Pantoprazole Sodium 40 mg 07/26/17 14:00 07/29/17 10:09 Protonix - PO 40 mg BID ROBIN Administration Multivit/Folic Acid/Iron 1 tab 07/25/17 10:00 07/29/17 10:37 Vitamins (Sjr) - PO 1 tab DAILY ROBIN Administration Sucralfate 1 gm 07/26/17 14:00 07/29/17 10:35 Carafate Oral Suspension - PO 1 gm QID ROBIN Administration Thiamine HCl 100 mg 07/24/17 22:00 07/28/17 21:28 Vitamin B1 - PO 100 mg HS ROBIN Administration A/P : 21 y/o male with Type 1 DM, multidrug use presented with DKA (now corrected), heroin OD, LUE abscess (s/p I&D), esophageal candidiasis, chronic Hep C and with MRSA bacteremia on broad spectrum antibiotics with ceftaroline and daptomycin Patient has anemia and mild thrombocytopenia. Although MCV is wnl, iron panel shows s/p iron deficiency anemia. Given his history pf chronic Hep C, Type 1 DM and fulminant infection, there is likely a component of anemia of chronic disease as well. This evident by increased acute phase reactants - Fibrinogen, D -dimer. There is a concern for hemolysis as well given the concern for valvular endocarditis. Pt is awaiting PEG. We have ordered a peripheral smear to review. There is no indication of GI bleeding or bleeding into his wound -recommend checking a serum ferritin -awaiting Hep C VL, ESR -recommend checking CD4/CD8 counts to see if patient has low CD4 counts accounting for infections and esophageal candidiasis -continue to trend CBC, transfusion goals are Hgb < 8 and platelets < 20K -Will continue to follow with you
--- NOTE | 2017-07-29 11:58 | PN ---
Progress Note, Physician Chief Complaint: Awake, alert C/O L UE pain + low grade temp WBC elevated BC (07/27) + - Current Medication List Current Medications: Active Medications Clonidine (Catapres -) 0.1 mg PO BID [facility] Last Admin: 07/29/17 10:09 Dose: 0.1 mg Cyclobenzaprine HCl (Flexeril -) 10 mg PO TID [facility] Last Admin: 07/29/17 06:27 Dose: 10 mg Fluconazole (Diflucan -) 200 mg PO DAILY [facility] Stop: 08/09/17 13:45 Last Admin: 07/29/17 10:09 Dose: 200 mg Gabapentin (Neurontin -) 100 mg PO TID [facility] Last Admin: 07/29/17 06:27 Dose: 100 mg Daptomycin 560 mg/ Sodium (Chloride) 100 mls @ 200 mls/hr IVPB DAILY [facility] PRN Reason: Protocol Last Admin: 07/29/17 10:34 Dose: 200 mls/hr Ceftaroline Fosamil 600 mg/ (Dextrose) 100 mls @ 200 mls/hr IVPB BID [facility] PRN Reason: Protocol Last Admin: 07/29/17 10:09 Dose: 200 mls/hr Potassium Chloride 40 meq/ (Sodium Chloride) 1,020 mls @ 100 mls/hr IVPB Q10H [facility] Last Admin: 07/29/17 05:30 Dose: 100 mls/hr Insulin Aspart (Novolog Vial Sliding Scale -) 1 vial SQ Q4HPO [facility] PRN Reason: Protocol Last Admin: 07/29/17 10:35 Dose: 2 units Insulin Detemir (Levemir Vial) 15 units SQ HS [facility] Last Admin: 07/28/17 21:27 Dose: 15 units Morphine Sulfate (Morphine Sulfate) 2 mg IVPUSH Q4H PRN PRN Reason: PAIN LEVEL 6-10 Last Admin: 07/29/17 06:27 Dose: 2 mg Nicotine (Nicoderm Patch -) 21 mg TD DAILY [facility] Last Admin: 07/29/17 10:35 Dose: 21 mg Nicotine Polacrilex (Nicorette Gum -) 2 mg BUC Q2H PRN PRN Reason: NICOTINE REPLACEMENT RX Ondansetron HCl (Zofran Odt -) 8 mg SL Q6H PRN PRN Reason: NAUSEA AND/OR VOMITING Pantoprazole Sodium (Protonix -) 40 mg PO BID [facility] Last Admin: 07/29/17 10:09 Dose: 40 mg Multivit/Folic Acid/Iron ( Vitamins (Sjr) -) 1 tab PO DAILY [facility] Last Admin: 07/29/17 10:37 Dose: 1 tab Sucralfate (Carafate Oral Suspension -) 1 gm PO QID [facility] Last Admin: 07/29/17 10:35 Dose: 1 gm Thiamine HCl (Vitamin B1 -) 100 mg PO HS [facility] Last Admin: 07/28/17 21:28 Dose: 100 mg - Objective Vital Signs: Vital Signs Temperature 100.2 F H 07/29/17 02:00 Pulse Rate 138 H 07/29/17 06:00 Respiratory Rate 18 07/29/17 06:00 Blood Pressure 106/77 07/29/17 06:00 O2 Sat by Pulse Oximetry (%) 100 07/28/17 22:00 Constitutional: Yes: Pallor Cardiovascular: Yes: Regular Rate and Rhythm, Tachycardia, S1, S2 Respiratory: Yes: CTA Bilaterally Gastrointestinal: Yes: Normal Bowel Sounds, Soft, Other (distended). No: Tenderness Extremities: Yes: Other (L UE suspended from IV pole) Edema: Yes Edema: LLE: 1+, RLE: 1+ Labs: CBC, BMP 07/29/17 05:55 INR, PTT INR 1.02 (0.82-1.09) 07/26/17 05:55 Fibrinogen 788.0 mg/dL (238-498) H 07/27/17 06:15 Assessment/Plan MRSA bacteremia Natalee esopohagitis Chronic liver disease Fever/ leukocytosis Continue daptomycin/ ceftaroline
--- NOTE | 2017-07-29 13:32 | PN ---
Progress Note, Physician Chief Complaint: IVDA with left arm cellulitis and infected thrombophlebitis History of Present Illness: 21yo LHD male PMH type 1 DM, current IV heroin user, Hepatitis C presented with altered mental status and generalized weakness. He remembers being dropped off in the ER. He is less lethargic today. Complains of pain. - Current Medication List Current Medications: Active Medications Clonidine (Catapres -) 0.1 mg PO BID [facility] Last Admin: 07/29/17 10:09 Dose: 0.1 mg Cyclobenzaprine HCl (Flexeril -) 10 mg PO TID [facility] Last Admin: 07/29/17 13:22 Dose: 10 mg Fluconazole (Diflucan -) 200 mg PO DAILY [facility] Stop: 08/09/17 13:45 Last Admin: 07/29/17 10:09 Dose: 200 mg Gabapentin (Neurontin -) 100 mg PO TID [facility] Last Admin: 07/29/17 13:22 Dose: 100 mg Daptomycin 560 mg/ Sodium (Chloride) 100 mls @ 200 mls/hr IVPB DAILY [facility] PRN Reason: Protocol Last Admin: 07/29/17 10:34 Dose: 200 mls/hr Ceftaroline Fosamil 600 mg/ (Dextrose) 100 mls @ 200 mls/hr IVPB BID [facility] PRN Reason: Protocol Last Admin: 07/29/17 10:09 Dose: 200 mls/hr Potassium Chloride 40 meq/ (Sodium Chloride) 1,020 mls @ 100 mls/hr IVPB Q10H [facility] Last Admin: 07/29/17 05:30 Dose: 100 mls/hr Insulin Aspart (Novolog Vial Sliding Scale -) 1 vial SQ Q4HPO [facility] PRN Reason: Protocol Last Admin: 07/29/17 10:35 Dose: 2 units Insulin Detemir (Levemir Vial) 15 units SQ HS [facility] Last Admin: 07/28/17 21:27 Dose: 15 units Morphine Sulfate (Morphine Sulfate) 2 mg IVPUSH Q4H PRN PRN Reason: PAIN LEVEL 6-10 Last Admin: 07/29/17 06:27 Dose: 2 mg Nicotine (Nicoderm Patch -) 21 mg TD DAILY [facility] Last Admin: 07/29/17 10:35 Dose: 21 mg Nicotine Polacrilex (Nicorette Gum -) 2 mg BUC Q2H PRN PRN Reason: NICOTINE REPLACEMENT RX Ondansetron HCl (Zofran Odt -) 8 mg SL Q6H PRN PRN Reason: NAUSEA AND/OR VOMITING Pantoprazole Sodium (Protonix -) 40 mg PO BID [facility] Last Admin: 07/29/17 10:09 Dose: 40 mg Multivit/Folic Acid/Iron ( Vitamins (Sjr) -) 1 tab PO DAILY [facility] Last Admin: 07/29/17 10:37 Dose: 1 tab Sucralfate (Carafate Oral Suspension -) 1 gm PO QID [facility] Last Admin: 07/29/17 13:24 Dose: 1 gm Thiamine HCl (Vitamin B1 -) 100 mg PO HS [facility] Last Admin: 07/28/17 21:28 Dose: 100 mg - Objective Vital Signs: Vital Signs Temperature 99.2 F 07/29/17 12:00 Pulse Rate 125 H 07/29/17 12:00 Respiratory Rate 22 07/29/17 12:00 Blood Pressure 113/62 07/29/17 12:00 O2 Sat by Pulse Oximetry (%) 100 07/29/17 10:00 Vital Signs Period Temp Pulse Resp BP Sys/Nolan Pulse Ox Last 24 Hr 99 F-100.8 F 122-152 14-26 88-136/51-80 100-100 Intake & Output 07/28/17 07/29/17 07/29/17 23:59 07:59 15:59 Intake Total 200 1500 Output Total 900 1000 Balance -700 500 Weight 138 lb Intake: IV 1200 Normal Saline - 1,000 ml 1200 @ 100 mls/hr IV ASDIR [facility] Rx#:[id number] IVPB 100 Oral 200 200 Output: Urine 900 1000 Void 900 1000 Other: Voiding Method Urinal Urinal Bowel Movement No No Weight Measurement Method Built in [facility] Constitutional: Yes: Well Nourished, No Distress, Calm Eyes: Yes: Conjunctiva Clear, EOM Intact HENT: Yes: Atraumatic, Normocephalic Neck: Yes: Supple, Trachea Midline Cardiovascular: Yes: Regular Rate and Rhythm, S1, S2 (.) Respiratory: Yes: Regular, CTA Bilaterally Gastrointestinal: Yes: Normal Bowel Sounds, Soft. No: Tenderness ...Rectal Exam: Yes: Deferred Genitourinary: No: CVA Tenderness - Left, CVA Tenderness - Right Musculoskeletal: Yes: Joint Stiffness (left shoulder) Edema: Yes Edema: LUE: 1+ Peripheral Pulses WNL: Yes Peripheral Pulses: Left Radial: 2+, Right Radial: 2+, Left Doralis Pedis: 2+, Right Dorsalis Pedis: 2+, Left Femoral: 2+, Right Femoral: 2+ Integumentary: No: Jaundice, Rash Wound/Incision: Yes: Unapproximated. No: Draining, Reddened Neurological: Yes: Alert, Oriented Labs: CBC, BMP 07/29/17 05:55 INR, PTT INR 1.02 (0.82-1.09) 07/26/17 05:55 Fibrinogen 788.0 mg/dL (238-498) H 07/27/17 06:15 Problem List - Problems (1) MRSA (methicillin resistant Staphylococcus aureus) septicemia Assessment/Plan: 21 yo LHD male with Hepatitis C, DM type 1 in DKA with aggressive left forearm cellulitis, thrombophlebitis, and draining abscess at the site of infecting IV drugs. MRSA septicemia, secondary to injecting heroin with contaminated needles. POD#3 s/p I&D and debridement of infected thrombophlebitis left forearm. Erythema and edema resolving, Left arm remains suspended to reduce edema. WBC now up to 22, all blood cultures are positive. He is on daptomycin per ID. Dressing Left forearm/ antecubital fossa changed Wound Measurement: two linear 3 [id number] healthy soft tissue and veins no purulent drainage Dressing instructions: 1/2inch iodoform packing, 4X4 gauze sponges, kerlex and tape IV antibiotics per ID trend CBC glycemic control left arm elevation above heart level in stockinette This patient is critically ill. Time spent reviewing chart, examining patient, talking with providers and/or family and documentation is 35 minutes Code(s): A41.02 - SEPSIS DUE TO METHICILLIN RESISTANT STAPHYLOCOCCUS AUREUS (2) Thrombophlebitis arm Code(s): I80.8 - PHLEBITIS AND THROMBOPHLEBITIS OF OTHER SITES (3) Abscess of forearm Code(s): L02.419 - CUTANEOUS ABSCESS OF LIMB, UNSPECIFIED (4) Opioid dependence with withdrawal Code(s): F11.23 - OPIOID DEPENDENCE WITH WITHDRAWAL (5) Diabetes Code(s): E11.9 - TYPE 2 DIABETES MELLITUS WITHOUT COMPLICATIONS Qualifiers: Diabetes mellitus type: type 1 Diabetes mellitus complication status: without complication Qualified Code(s): E10.9 - Type 1 diabetes mellitus without complications
[2017-07-29] MEDS: THIAMINE HCL 100 MG TABLET (FP) PO SCH (22:10)
[2017-07-29] MEDS: INSULIN DETEMIR 100 UNITS/ML MDV SQ SCH (22:11)
--- NOTE | 2017-07-29 23:00 | PN ---
Progress Note, Physician History of Present Illness: Ptw/ some SOB - Current Medication List Current Medications: Active Medications Clonidine (Catapres -) 0.1 mg PO BID [facility] Last Admin: 07/29/17 22:10 Dose: 0.1 mg Cyclobenzaprine HCl (Flexeril -) 10 mg PO TID [facility] Last Admin: 07/29/17 22:10 Dose: 10 mg Fluconazole (Diflucan -) 200 mg PO DAILY [facility] Stop: 08/09/17 13:45 Last Admin: 07/29/17 10:09 Dose: 200 mg Gabapentin (Neurontin -) 100 mg PO TID [facility] Last Admin: 07/29/17 22:11 Dose: 100 mg Daptomycin 560 mg/ Sodium (Chloride) 100 mls @ 200 mls/hr IVPB DAILY [facility] PRN Reason: Protocol Last Admin: 07/29/17 10:34 Dose: 200 mls/hr Ceftaroline Fosamil 600 mg/ (Dextrose) 100 mls @ 200 mls/hr IVPB BID [facility] PRN Reason: Protocol Last Admin: 07/29/17 22:09 Dose: 200 mls/hr Potassium Chloride 40 meq/ (Sodium Chloride) 1,020 mls @ 100 mls/hr IVPB Q10H [facility] Last Admin: 07/29/17 18:30 Dose: 100 mls/hr Insulin Aspart (Novolog Vial Sliding Scale -) 1 vial SQ Q4HPO [facility] PRN Reason: Protocol Last Admin: 07/29/17 22:12 Dose: 4 units Insulin Detemir (Levemir Vial) 15 units SQ HS [facility] Last Admin: 07/29/17 22:11 Dose: 15 units Morphine Sulfate (Morphine Sulfate) 2 mg IVPUSH Q4H PRN PRN Reason: PAIN LEVEL 6-10 Last Admin: 07/29/17 22:54 Dose: 2 mg Nicotine (Nicoderm Patch -) 21 mg TD DAILY [facility] Last Admin: 07/29/17 10:35 Dose: 21 mg Nicotine Polacrilex (Nicorette Gum -) 2 mg BUC Q2H PRN PRN Reason: NICOTINE REPLACEMENT RX Ondansetron HCl (Zofran Odt -) 8 mg SL Q6H PRN PRN Reason: NAUSEA AND/OR VOMITING Pantoprazole Sodium (Protonix -) 40 mg PO BID [facility] Last Admin: 07/29/17 22:12 Dose: 40 mg Multivit/Folic Acid/Iron ( Vitamins (Sjr) -) 1 tab PO DAILY [facility] Last Admin: 07/29/17 10:37 Dose: 1 tab Sucralfate (Carafate Oral Suspension -) 1 gm PO QID [facility] Last Admin: 07/29/17 22:09 Dose: 1 gm Thiamine HCl (Vitamin B1 -) 100 mg PO HS [facility] Last Admin: 07/29/17 22:10 Dose: 100 mg - Objective Vital Signs: Vital Signs Temperature 99.2 F 07/29/17 22:00 Pulse Rate 140 H 07/29/17 22:00 Respiratory Rate 20 07/29/17 22:00 Blood Pressure 106/63 07/29/17 22:00 O2 Sat by Pulse Oximetry (%) 100 07/29/17 22:00 Cardiovascular: Yes: Tachycardia Respiratory: Yes: Diminished Gastrointestinal: Yes: WNL, Normal Bowel Sounds, Soft Extremities: Yes: Other ((+) swelling LUE) Labs: CBC, BMP 07/29/17 05:55 INR, PTT INR 1.02 (0.82-1.09) 07/26/17 05:55 Fibrinogen 788.0 mg/dL (238-498) H 07/27/17 06:15 Problem List - Problems (1) Diabetic ketoacidosis Code(s): E13.10 - OTH DIABETES MELLITUS WITH KETOACIDOSIS WITHOUT COMA Qualifiers: Diabetes mellitus type: type 1 Diabetes mellitus complication detail: without coma Qualified Code(s): E10.10 - Type 1 diabetes mellitus with ketoacidosis without coma (2) Sepsis Code(s): A41.9 - SEPSIS, UNSPECIFIED ORGANISM (3) Opioid dependence with withdrawal Code(s): F11.23 - OPIOID DEPENDENCE WITH WITHDRAWAL
[2017-07-30] MEDS: INSULIN SLIDING SCALE (NOVOLOG) 1 VIAL SQ SCH ×6 (02:00→22:18)
[2017-07-30] MEDS: morphine SULFATE 4 MG/ML VIAL IVPUSH PRN ×5 (04:12→22:26)
[2017-07-30] MEDS: POTASSIUM CHLORIDE 40 MEQ in SODIUM CHLORIDE 1,000 ML IVPB SCH ×2 (04:20→06:07)
[2017-07-30] MEDS: CYCLOBENZAPRINE HCL 10 MG TABLET (FP) PO SCH ×3 (06:07→22:24)
[2017-07-30] MEDS: GABAPENTIN 100 MG CAPSULE (FP) PO SCH ×3 (06:07→22:24)
[2017-07-30 06:47] LABS: ALK PHOS 307 U/L (45-117); ANION GAP 7 (8-16); BILIRUBIN,TOTAL 0.8 mg/dL (0.2-1.0); BLOOD UREA NITROGEN 12 mg/dL (7-18); CHLORIDE 103 mmol/L (98-107); CO2 29 mmol/L (21-32); CREATININE 0.6 mg/dL (0.7-1.3); GLUCOSE,RANDOM 70 mg/dL (74-106); MAGNESIUM 1.7 mg/dL (1.8-2.4); PHOSPHOROUS 4.2 mg/dL (2.5-4.9); POTASSIUM 4.2 mmol/L (3.5-5.1); SGOT/AST 26 U/L (15-37); SGPT/ALT 37 U/L (12-78); SODIUM 139 mmol/L (136-145); TOT PROT 4.5 g/dl (6.4-8.2)
[2017-07-30 06:50] LABS: ALBUMIN 0.9 g/dl (3.4-5.0)
[2017-07-30 06:53] LABS: HEMATOCRIT 21.5 % (35.4-49); HEMOGLOBIN 7.2 GM/dL (11.7-16.9); MCH 31.7 pg (25.7-33.7); MCHC 33.4 g/dl (32.0-35.9); MEAN PLT VOLUME 9.1 fl (7.5-11.1); PLATELET COUNT 319 K/MM3 (134-434); RBC 2.27 M/mm3 (4.00-5.60); RDW 17.6 % (11.9-15.9)
--- NOTE | 2017-07-30 07:21 | PN ---
Progress Note, Physician Chief Complaint: ID Concern is persistant baceteremia MRSA along with tachycardia fever Rising WBC count. He has a hard time taking a deep breath. Denies SOB or couph hemoptysis. Now On Salvage antibiotic regimen of Daptomycin and Ceftaroline - Current Medication List Current Medications: Active Medications Clonidine (Catapres -) 0.1 mg PO BID [facility] Last Admin: 07/29/17 22:10 Dose: 0.1 mg Cyclobenzaprine HCl (Flexeril -) 10 mg PO TID [facility] Last Admin: 07/30/17 06:07 Dose: 10 mg Fluconazole (Diflucan -) 200 mg PO DAILY [facility] Stop: 08/09/17 13:45 Last Admin: 07/29/17 10:09 Dose: 200 mg Gabapentin (Neurontin -) 100 mg PO TID [facility] Last Admin: 07/30/17 06:07 Dose: 100 mg Daptomycin 560 mg/ Sodium (Chloride) 100 mls @ 200 mls/hr IVPB DAILY [facility] PRN Reason: Protocol Last Admin: 07/29/17 10:34 Dose: 200 mls/hr Ceftaroline Fosamil 600 mg/ (Dextrose) 100 mls @ 200 mls/hr IVPB BID [facility] PRN Reason: Protocol Last Admin: 07/29/17 22:09 Dose: 200 mls/hr Potassium Chloride 40 meq/ (Sodium Chloride) 1,020 mls @ 100 mls/hr IVPB Q10H [facility] Last Admin: 07/30/17 06:07 Dose: 100 mls/hr Insulin Aspart (Novolog Vial Sliding Scale -) 1 vial SQ Q4HPO [facility] PRN Reason: Protocol Last Admin: 07/30/17 06:08 Dose: Not Given Insulin Detemir (Levemir Vial) 15 units SQ HS [facility] Last Admin: 07/29/17 22:11 Dose: 15 units Morphine Sulfate (Morphine Sulfate) 2 mg IVPUSH Q4H PRN PRN Reason: PAIN LEVEL 6-10 Last Admin: 07/30/17 04:12 Dose: 2 mg Nicotine (Nicoderm Patch -) 21 mg TD DAILY [facility] Last Admin: 07/29/17 10:35 Dose: 21 mg Nicotine Polacrilex (Nicorette Gum -) 2 mg BUC Q2H PRN PRN Reason: NICOTINE REPLACEMENT RX Ondansetron HCl (Zofran Odt -) 8 mg SL Q6H PRN PRN Reason: NAUSEA AND/OR VOMITING Pantoprazole Sodium (Protonix -) 40 mg PO BID [facility] Last Admin: 07/29/17 22:12 Dose: 40 mg Multivit/Folic Acid/Iron ( Vitamins (Sjr) -) 1 tab PO DAILY [facility] Last Admin: 07/29/17 10:37 Dose: 1 tab Sucralfate (Carafate Oral Suspension -) 1 gm PO QID [facility] Last Admin: 07/29/17 22:09 Dose: 1 gm Thiamine HCl (Vitamin B1 -) 100 mg PO HS [facility] Last Admin: 07/29/17 22:10 Dose: 100 mg - Objective Vital Signs: Vital Signs Temperature 99 F 07/30/17 06:00 Pulse Rate 104 H 07/30/17 06:00 Respiratory Rate 16 07/30/17 06:00 Blood Pressure 113/56 07/30/17 06:00 O2 Sat by Pulse Oximetry (%) 100 07/29/17 22:00 Constitutional: Yes: No Distress HENT: Yes: WNL, Atraumatic Neck: Yes: WNL, Supple Cardiovascular: Yes: Tachycardia, S1, S2. No: Murmur Respiratory: Yes: WNL, Regular, CTA Bilaterally, Diminished. No: Rales, Rhonchi Gastrointestinal: Yes: WNL, Normal Bowel Sounds, Soft. No: Tenderness, Tenderness, Rebound Edema: Yes (Left hand wound dressing) Labs: CBC, BMP 07/30/17 05:40 INR, PTT INR 1.02 (0.82-1.09) 07/26/17 05:55 Fibrinogen 788.0 mg/dL (238-498) H 07/27/17 06:15 Assessment/Plan Microbiology 07/23/17 23:35 Blood - Peripheral Venous Blood Culture - Final Mr S Aureus Streptococcus Acidominimus 07/23/17 23:35 Blood - Peripheral Venous Blood Culture - Final Mr S Aureus Streptococcus Acidominimus 07/29/17 05:55 Blood - Picc Line Blood Culture - Preliminary Pending Organism 07/29/17 05:55 Blood - Picc Line Blood Culture - Preliminary Pending Organism Laboratory Tests 07/28/17 07/29/17 07/29/17 07:35 05:55 05:55 WBC 22.0 H D Hgb 8.1 L Plt Count 243 D ESR BUN Creatinine Creat Clearance w eGFR AST ALT Alkaline Phosphatase Albumin Absolute CD4 [place] Pending Hepatitis C Antibody >11.0 H 07/30/17 07/30/17 07/30/17 05:40 05:40 05:40 WBC Pending Hgb Pending Plt Count Pending ESR Pending BUN 12 Creatinine 0.6 L Creat Clearance w eGFR > 60 AST 26 ALT 37 D Alkaline Phosphatase 307 H Albumin 0.9 L Absolute CD4 [place] Hepatitis C Antibody Assessment Polymicrobial gram positive bacteremia secondary to IVDA. Has suppurative thrombophlebitis now post drainage and per surgery wound looks better. Concern is persistant bacteremia amd leukocytosis fever tachycardia as well as his inablility to take a deep breath without pain ? septic pulmonary emboli. He could also have an intrabd source and or a psoas abscess. This needs to be looks for. Lastly endocarditits has to be considered given all of this and a PEG should be scheduled. CT imaging ordered yesterday pending. ICU critical care time 38 minutes Bob SANDERSON
--- NOTE | 2017-07-30 07:26 | PN ---
Physical Exam: SUBJECTIVE: Patient seen and examined in ICU. Reports feeling warm over the past few nights. Denies any further symptoms. Reports pain is improving, however still feels pain in his arm. OBJECTIVE: Vital Signs Period Temp Pulse Resp BP Sys/Nolan Pulse Ox Last 24 Hr 98.9 F-99.2 F 104-142 11-24 88-123/47-77 100-100 GENERAL: NAD, awake, alert, oriented x3 HEENT: EOMI, LOUIE, sclera anicteric, No JVD LUNGS: Diminished breath sounds at bases; coarse breath sounds. No accessory muscle use HEART: Tachycardic regular rhythm, S1, S2 without murmur ABDOMEN: Soft, NT/ND, normoactive bowel sounds, no guarding, no hepatomegaly, no masses. EXTREMITIES: 2+ DP and radial pulses, warm, well-perfused, no edema. L forearm wound without erythema or purulent discharge. L forearm warm to touch however NEUROLOGICAL: Nonfocal. Normal speech, gait not observed PSYCH: Normal mood, normal affect. SKIN: Warm, dry, normal turgor, no rashes noted; see EXT exam Laboratory Results - last 24 hr 07/30/17 05:40 Total Counted Neutrophils % (Manual) Band Neutrophils % Lymphocytes % (Manual) Monocytes % (Manual) Eosinophils % (Manual) Basophils % (Manual) Myelocytes % (Man) Promyelocytes % (Man) Blast Cells % (Manual) Nucleated RBC % Metamyelocytes Differential Comment Hypersegmented Neuts Plasma Cells Smudge Cells Other Cell Type Hypochromia Toxic Granulation Dohle Bodies Platelet Estimate Polychromasia Poikilocytosis Basophilic Stippling Anisocytosis Microcytosis Macrocytosis Spherocytes Siderocytes Sickle Cells Target Cells Tear Drop Cells Ovalocytes Stomatocytes Helmet Cells [place] Bodies [place] Rings Andrade Cells Acanthocytes (Spur) Rouleaux Fragmented RBCs Schistocytes Sodium 139 Potassium 4.2 Chloride 103 Carbon Dioxide 29 Anion Gap 7 L BUN 12 Creatinine 0.6 L Creat Clearance w eGFR > 60 POC Glucometer Random Glucose 70 L D Calcium 7.0 L Phosphorus 4.2 D Magnesium 1.7 L Total Bilirubin 0.8 D AST 26 ALT 37 D Alkaline Phosphatase 307 H Total Protein 4.5 L Albumin 0.9 L Hepatitis C Antibody Blood Type Antibody Screen Crossmatch Active Medications Generic Name Dose Route Start Last Admin Trade Name Freq PRN Reason Stop Dose Admin Clonidine 0.1 mg 07/24/17 22:00 07/29/17 22:10 Catapres - PO 0.1 mg BID [facility] Administration Cyclobenzaprine HCl 10 mg 07/24/17 22:00 07/30/17 06:07 Flexeril - PO 10 mg TID [facility] Administration Fluconazole 200 mg 07/26/17 13:45 07/29/17 10:09 Diflucan - PO 08/09/17 13:45 200 mg DAILY [facility] Administration Gabapentin 100 mg 07/24/17 22:00 07/30/17 06:07 Neurontin - PO 100 mg TID [facility] Administration Daptomycin 560 mg/ Sodium 100 mls @ 200 mls/hr 07/28/17 10:00 07/29/17 10:34 Chloride IVPB 200 mls/hr DAILY [facility] Administration Protocol Ceftaroline Fosamil 600 mg/ 100 mls @ 200 mls/hr 07/28/17 10:00 07/29/17 22: 09 Dextrose IVPB 200 mls/hr BID [facility] Administration Protocol Potassium Chloride 40 meq/ 1,020 mls @ 100 mls/hr 07/28/17 09:58 07/30/17 06: 07 Sodium Chloride IVPB 100 mls/hr Q10H [facility] Administration Insulin Aspart 1 vial 07/24/17 23:45 07/30/17 06:08 Novolog Vial Sliding Scale - SQ Not Given Q4HPO [facility] Protocol Insulin Detemir 15 units 07/25/17 22:00 07/29/17 22:11 Levemir Vial SQ 15 units HS [facility] Administration Morphine Sulfate 2 mg 07/27/17 12:52 07/30/17 04:12 Morphine Sulfate IVPUSH 2 mg Q4H PRN Administration PAIN LEVEL 6-10 Nicotine 21 mg 07/24/17 18:05 07/29/17 10:35 Nicoderm Patch - TD 21 mg DAILY [facility] Administration Nicotine Polacrilex 2 mg 07/24/17 10:44 Nicorette Gum - BUC Q2H PRN NICOTINE REPLACEMENT RX Ondansetron HCl 8 mg 07/24/17 18:04 Zofran Odt - SL Q6H PRN NAUSEA AND/OR VOMITING Pantoprazole Sodium 40 mg 07/26/17 14:00 07/29/17 22:12 Protonix - PO 40 mg BID [facility] Administration Multivit/Folic Acid/Iron 1 tab 07/25/17 10:00 07/29/17 10:37 Vitamins (Sjr) - PO 1 tab DAILY [facility] Administration Sucralfate 1 gm 07/26/17 14:00 07/29/17 22:09 Carafate Oral Suspension - PO 1 gm QID [facility] Administration Thiamine HCl 100 mg 07/24/17 22:00 07/29/17 22:10 Vitamin B1 - PO 100 mg HS [facility] Administration ASSESSMENT/PLAN: Neuro: Neurologically intact Respiratory: Lung nodules --Noted on imaging; likely septic emboli --Current saturation >90%; however requiring nasal cannula --Rest per ID Cardiovascular: HTN --Continue Catapres 0.1mg PO if needed Renal: CRISTINA --2/2 to sepsis syndrome --RESOLVED --Monitor urine outputs in sepsis syndrome setting ID: Severe sepsis 2/2 to MRSA bacteremia --2/2 abscess formation after heroin injection of L arm --Surgery monitoring s/p I&D of L forearm abscess --arm continues to be warm with C/D/I --pt received fasciotomy during I&D so compartement syndrome risk has been reduced --U/S arm ordered; will discuss about getting neck vein duplex as well for visualization of possible septic emboli --Morphine 2mg IVP for pain 6-10; begin to taper off --Persistant fevers and tachycardia --Follow cultures --Id on board --Discussed CT AB and CT chest without contrast --Revealed extensive effusions and compressive atelectasis and possible septic emobli noted --Will discuss with Dr. Massey about possible needle aspiration for further investigation if effusions are purulent --Cont. daptomycin and ceftaroline; possibility of increasing to stronger ABX however unsure of availability at this facility Endocrine: Type 2 DM --DKA resolved --Volatile sugars currently --ISS --BGM --Levermir 15U HS SQ --Endocrine on aboard FEN: Fluids: Discontinue fluids; hypervolemic clinically Electrolyte abnormalities: HypoMg (replete) Nutrition: Diabetic Diet PPX: DVT - SCDs currently GI - Protonix 40mg IVP qDaily Dispo: Transfer to Med-surg Case discussed with Dr. Yoshi Nicole, DO - IM PGY-1 Visit type - Emergency Visit Emergency Visit: No - New Patient This patient is new to me today: No - Critical Care Critical Care patient: Yes Total Critical Care Time (in minutes): 36 Critical Care Statement: The care of this patient involved high complexity decision making to prevent further life threatening deterioration of the patient 's condition and/or to evaluate & treat vital organ system(s) failure or risk of failure.
[2017-07-30 08:06] LABS: EOSINOPHIL(ABSOLUTE) 0.2 x10E3/uL (0.0-0.4); HEMATOCRIT 23.9 % (37.5-51.0); HEMOGLOBIN 8.3 g/dL (13.0-17.7); LYMPHS (ABSOLUTE) 2.3 x10E3/uL (0.7-3.1); MCH 31.9 pg (26.6-33.0); MCHC 34.7 g/dL (31.5-35.7); MONOCYTES (ABSOLUTE) 1.1 x10E3/uL (0.1-0.9); PLATELET COUNT 260 x10E3/uL (150-379); RDW 16.8 % (12.3-15.4); WHITE BLOOD COUNT 22.8 x10E3/uL (3.4-10.8)
--- NOTE | 2017-07-30 09:27 | PN ---
Progress Note, Physician Chief Complaint: IVDA with left arm cellulitis and infected thrombophlebitis History of Present Illness: 21yo LHD male PMH type 1 DM, current IV heroin user, Hepatitis C presented with altered mental status and generalized weakness. He remembers being dropped off in the ER. He is less lethargic today. Complains of pain. - Current Medication List Current Medications: Active Medications Clonidine (Catapres -) 0.1 mg PO BID [facility] Last Admin: 07/29/17 22:10 Dose: 0.1 mg Cyclobenzaprine HCl (Flexeril -) 10 mg PO TID [facility] Last Admin: 07/30/17 06:07 Dose: 10 mg Fluconazole (Diflucan -) 200 mg PO DAILY [facility] Stop: 08/09/17 13:45 Last Admin: 07/29/17 10:09 Dose: 200 mg Gabapentin (Neurontin -) 100 mg PO TID [facility] Last Admin: 07/30/17 06:07 Dose: 100 mg Daptomycin 560 mg/ Sodium (Chloride) 100 mls @ 200 mls/hr IVPB DAILY [facility] PRN Reason: Protocol Last Admin: 07/29/17 10:34 Dose: 200 mls/hr Ceftaroline Fosamil 600 mg/ (Dextrose) 100 mls @ 200 mls/hr IVPB BID [facility] PRN Reason: Protocol Last Admin: 07/29/17 22:09 Dose: 200 mls/hr Potassium Chloride 40 meq/ (Sodium Chloride) 1,020 mls @ 100 mls/hr IVPB Q10H [facility] Last Admin: 07/30/17 06:07 Dose: 100 mls/hr Insulin Aspart (Novolog Vial Sliding Scale -) 1 vial SQ Q4HPO [facility] PRN Reason: Protocol Last Admin: 07/30/17 06:08 Dose: Not Given Insulin Detemir (Levemir Vial) 15 units SQ HS [facility] Last Admin: 07/29/17 22:11 Dose: 15 units Morphine Sulfate (Morphine Sulfate) 2 mg IVPUSH Q4H PRN PRN Reason: PAIN LEVEL 6-10 Last Admin: 07/30/17 04:12 Dose: 2 mg Nicotine (Nicoderm Patch -) 21 mg TD DAILY [facility] Last Admin: 07/29/17 10:35 Dose: 21 mg Nicotine Polacrilex (Nicorette Gum -) 2 mg BUC Q2H PRN PRN Reason: NICOTINE REPLACEMENT RX Ondansetron HCl (Zofran Odt -) 8 mg SL Q6H PRN PRN Reason: NAUSEA AND/OR VOMITING Pantoprazole Sodium (Protonix -) 40 mg PO BID [facility] Last Admin: 07/29/17 22:12 Dose: 40 mg Multivit/Folic Acid/Iron ( Vitamins (Sjr) -) 1 tab PO DAILY [facility] Last Admin: 07/29/17 10:37 Dose: 1 tab Sucralfate (Carafate Oral Suspension -) 1 gm PO QID [facility] Last Admin: 07/29/17 22:09 Dose: 1 gm Thiamine HCl (Vitamin B1 -) 100 mg PO HS [facility] Last Admin: 07/29/17 22:10 Dose: 100 mg - Objective Vital Signs: Vital Signs Temperature 99 F 07/30/17 06:00 Pulse Rate 117 H 07/30/17 08:01 Respiratory Rate 18 07/30/17 08:01 Blood Pressure 114/72 07/30/17 08:01 O2 Sat by Pulse Oximetry (%) 100 07/29/17 22:00 Constitutional: Yes: No Distress, Calm, Poor Hygeine, Thin Eyes: Yes: Conjunctiva Clear, EOM Intact HENT: Yes: Atraumatic, Normocephalic Neck: Yes: Supple, Trachea Midline Cardiovascular: Yes: Regular Rate and Rhythm, S1, S2 Respiratory: Yes: Regular, CTA Bilaterally Gastrointestinal: Yes: Normal Bowel Sounds, Soft. No: Tenderness ...Rectal Exam: Yes: Deferred Wound/Incision: Yes: Dressing Removed, Reddened, Unapproximated (right forearm, no warm to touch and maybe slightly more edmatous). No: Draining Neurological: Yes: Alert, Oriented Psychiatric: Yes: Alert, Oriented Labs: CBC, BMP 07/30/17 05:40 07/30/17 05:40 INR, PTT INR 1.02 (0.82-1.09) 07/26/17 05:55 Fibrinogen 788.0 mg/dL (238-498) H 07/27/17 06:15 Problem List - Problems (1) MRSA (methicillin resistant Staphylococcus aureus) septicemia Assessment/Plan: 21 yo LHD male with Hepatitis C, DM type 1 in DKA with aggressive left forearm cellulitis, thrombophlebitis, and draining abscess at the site of infecting IV drugs. MRSA septicemia, secondary to injecting heroin with contaminated needles. POD#4 s/p I&D and debridement of infected thrombophlebitis left forearm. Erythema and edema resolving, Left arm remains suspended to reduce edema. The dorsal forearm is more warm to touch today. WBC now up to 21, all blood cultures are positive. He is on daptomycin per ID. ICU managment Left arm ultrasound to evaluate residual collections Dressing Left forearm/ antecubital fossa changed Wound Measurement: two linear 3 [id number] healthy soft tissue and veins no purulent drainage Dressing instructions: 1/2inch iodoform packing, 4X4 gauze sponges, tape IV antibiotics per ID trend CBC glycemic control left arm elevation on a pillow This patient is critically ill. Time spent reviewing chart, examining patient, talking with providers and/or family and documentation is 35 minutes Code(s): A41.02 - SEPSIS DUE TO METHICILLIN RESISTANT STAPHYLOCOCCUS AUREUS (2) Thrombophlebitis arm Code(s): I80.8 - PHLEBITIS AND THROMBOPHLEBITIS OF OTHER SITES (3) Abscess of forearm Code(s): L02.419 - CUTANEOUS ABSCESS OF LIMB, UNSPECIFIED (4) Opioid dependence with withdrawal Code(s): F11.23 - OPIOID DEPENDENCE WITH WITHDRAWAL (5) Diabetes Code(s): E11.9 - TYPE 2 DIABETES MELLITUS WITHOUT COMPLICATIONS Qualifiers: Diabetes mellitus type: type 1 Diabetes mellitus complication status: without complication Qualified Code(s): E10.9 - Type 1 diabetes mellitus without complications
[2017-07-30] MEDS ORDERED: PT OWN MED DRAWER 7, Y5N ONE ×2 (09:55→15:15)
[2017-07-30] MEDS: FLUCONAZOLE 100 MG TABLET (UD) PO SCH (09:57)
[2017-07-30] MEDS: cloNIDine HCL 0.1 MG TABLET PO SCH ×2 (09:57→22:24)
[2017-07-30] MEDS: CEFTAROLINE FOSAMIL ACETATE 600 MG in DEXTROSE 5%-WATER - 100 ML IVPB SCH ×2 (09:57→22:25)
[2017-07-30] MEDS: SUCRALFATE 1 GM/10 ML UNIT DOSE CUPS PO SCH ×4 (09:58→22:23)
[2017-07-30] MEDS: NICOTINE 21 MG/24 HOURS TOPICAL PATCH TD SCH (09:58)
[2017-07-30] MEDS: PANTOPRAZOLE 40 MG TABLET (FP) PO SCH (09:58)
[2017-07-30] MEDS: SODIUM CHLORIDE IVPB SCH (11:53)
[2017-07-30] MEDS: DAPTOMYCIN IVPB SCH (11:53)
[2017-07-30] MEDS ORDERED: INSULIN (NOVOLOG) ASPART 100 UNITS/ML 10ML VIAL ONE (12:01)
[2017-07-30] MEDS ORDERED: ONDANSETRON *ODT* 4 MG TABLET SL PRN (12:09)
[2017-07-30] MEDS ORDERED: NICOTINE POLACRILEX 2 MG GUM BUC PRN (12:09)
[2017-07-30] MEDS: PRENATAL VITAMINS W/ FOLIC ACID TABLET (FP) PO SCH (12:09)
[2017-07-30] MEDS ORDERED: MAGNESIUM SULF 50% (8.12 MEQ/2 ML-1 GM VIAL) IVPB ONE (12:09)
[2017-07-30] MEDS ORDERED: MAGNESIUM 1GM/D5W - 1 GM/100 ML IVPB IVPB ONE (12:09)
--- NOTE | 2017-07-30 12:12 | PN ---
Progress Note (short form) - Note Progress Note: pt seen and examined PE : AOx3, pleasant, awake PERRLA, EOMI, poor dentition left arm is elevated in a sling stockinette Tachycardia, CTA (BL) Soft abdomen 1+ pitting edema, LE in SCD's Last Vital Signs Temp Pulse Resp BP Pulse Ox 98.9 F 116 H 20 109/67 100 07/30/17 09:48 07/30/17 11:00 07/30/17 11:00 07/30/17 11:00 07/30/17 10:00 CBC, BMP 07/30/17 05:40 07/30/17 05:40 Current Medications Clonidine (Catapres -) 0.1 mg PO BID [facility] Cyclobenzaprine HCl (Flexeril -) 10 mg PO TID [facility] Fluconazole (Diflucan -) 200 mg PO DAILY [facility] Stop: 08/09/17 13:45 Gabapentin (Neurontin -) 100 mg PO TID [facility] Ceftaroline Fosamil 600 mg/ (Dextrose) 100 mls @ 200 mls/hr IVPB BID [facility] PRN Reason: Protocol Daptomycin 560 mg/ Sodium (Chloride) 100 mls @ 200 mls/hr IVPB DAILY [facility] PRN Reason: Protocol Magnesium Sulfate/Dextrose (Magnesium 1gm/D5w -) 1 gm in 100 mls @ 200 mls/hr IVPB ONCE ONE Stop: 07/30/17 12:38 Insulin Aspart (Novolog Vial Sliding Scale -) 1 vial SQ Q4HPO [facility] PRN Reason: Protocol Insulin Detemir (Levemir Vial) 15 units SQ HS [facility] Magnesium Sulfate (Magnesium Sulfate) 2 gm IVPB ONCE ONE Stop: 07/30/17 12:10 Morphine Sulfate (Morphine Sulfate) 2 mg IVPUSH Q4H PRN PRN Reason: PAIN LEVEL 6-10 Nicotine (Nicoderm Patch -) 21 mg TD DAILY [facility] Nicotine Polacrilex (Nicorette Gum -) 2 mg BUC Q2H PRN PRN Reason: NICOTINE REPLACEMENT RX Ondansetron HCl (Zofran Odt -) 8 mg SL Q6H PRN PRN Reason: NAUSEA AND/OR VOMITING Pantoprazole Sodium (Protonix -) 40 mg PO BID [facility] Multivit/Folic Acid/Iron ( Vitamins (Sjr) -) 1 tab PO DAILY [facility] Sucralfate (Carafate Oral Suspension -) 1 gm PO QID [facility] Thiamine HCl (Vitamin B1 -) 100 mg PO HS [facility] 21 y/o male with Type 1 DM, multidrug use presented with DKA (now corrected), heroin OD, LUE abscess (s/p I&D), esophageal candidiasis, chronic Hep C and with MRSA bacteremia on broad spectrum antibiotics with ceftaroline and daptomycin Patient has anemia and mild thrombocytopenia. -anemia, ACD/ACI in the setting of current clinical picture. -continue to trend CBC, transfusion goals are Hgb < 8 and platelets < 20K -continue monitoring
--- NOTE | 2017-07-30 12:20 | PN ---
Teaching Attending Note Name of Resident: Camilo Nicole ATTENDING PHYSICIAN STATEMENT I saw and evaluated the patient. I reviewed the resident's note and discussed the case with the resident. I agree with the resident's findings and plan as documented. SUBJECTIVE: Pt seen and examined in the ICU. Intermittent low grade fevers, blood cultures still positive. OBJECTIVE: Last Vital Signs Temp Pulse Resp BP Pulse Ox 98.9 F 116 H 20 109/67 100 07/30/17 09:48 07/30/17 11:00 07/30/17 11:00 07/30/17 11:00 07/30/17 10:00 Intake & Output 07/27/17 07/28/17 07/29/17 07/30/17 23:59 23:59 23:59 23:59 Intake Total 2520 2250 3800 1400 Output Total 4550 2900 3900 700 Balance -2030 -650 -100 700 Weight 63.594 kg 63.503 kg 62.596 kg 60.781 kg Gen: somnolent but arousable, pale Heart: tachycardic, regular Lung: decreased breath sounds at the bases Abd: soft, nontender Ext: LUE edema CBC, BMP 07/30/17 05:40 07/30/17 05:40 Active Medications Clonidine (Catapres -) 0.1 mg PO BID [facility] Cyclobenzaprine HCl (Flexeril -) 10 mg PO TID [facility] Fluconazole (Diflucan -) 200 mg PO DAILY [facility] Stop: 08/09/17 13:45 Gabapentin (Neurontin -) 100 mg PO TID [facility] Ceftaroline Fosamil 600 mg/ (Dextrose) 100 mls @ 200 mls/hr IVPB BID [facility] PRN Reason: Protocol Daptomycin 560 mg/ Sodium (Chloride) 100 mls @ 200 mls/hr IVPB DAILY [facility] PRN Reason: Protocol Magnesium Sulfate/Dextrose (Magnesium 1gm/D5w -) 1 gm in 100 mls @ 200 mls/hr IVPB ONCE ONE Stop: 07/30/17 12:38 Insulin Aspart (Novolog Vial Sliding Scale -) 1 vial SQ Q4HPO [facility] PRN Reason: Protocol Insulin Detemir (Levemir Vial) 15 units SQ HS [facility] Magnesium Sulfate (Magnesium Sulfate) 2 gm IVPB ONCE ONE Stop: 07/30/17 12:10 Morphine Sulfate (Morphine Sulfate) 2 mg IVPUSH Q4H PRN PRN Reason: PAIN LEVEL 6-10 Nicotine (Nicoderm Patch -) 21 mg TD DAILY [facility] Nicotine Polacrilex (Nicorette Gum -) 2 mg BUC Q2H PRN PRN Reason: NICOTINE REPLACEMENT RX Ondansetron HCl (Zofran Odt -) 8 mg SL Q6H PRN PRN Reason: NAUSEA AND/OR VOMITING Pantoprazole Sodium (Protonix -) 40 mg PO BID [facility] Multivit/Folic Acid/Iron ( Vitamins (Sjr) -) 1 tab PO DAILY [facility] Sucralfate (Carafate Oral Suspension -) 1 gm PO QID [facility] Thiamine HCl (Vitamin B1 -) 100 mg PO HS [facility] ASSESSMENT AND PLAN: Staph Bacteremia/LUE Abscess s/p debridement Lung Nodules likely Septic Emboli Diabetic Ketoacidosis resolved Septic Shock resolving Thrombocytopenia improved Acute Kidney Injury improved Lactic Acidosis resolved +Troponins likely Demand Ischemia Elevated LFTs Metabolic Derangements IVDU/Polysubstance Abuse Anemia - continue antibiotics - f/u pending cultures until cleared - d/c IVF as pt becoming volume overloaded - monitor urine output, creatinine - monitor H/H - protonix - s/p detox - glucose control - can monitor on floor critical care time spent in reviewing chart, evaluating patient and formulating plan 35min
[2017-07-30] MEDS ORDERED: MAGNESIUM OXIDE 400 MG TABLET (FP) PO ONE ×2 (13:15→15:30)
[2017-07-30] MEDS ORDERED: morphine SULFATE 4 MG/ML VIAL ONE (15:14)
[2017-07-30] MEDS ORDERED: PANTOPRAZOLE 40 MG TABLET (FP) PO SCH (22:00)
[2017-07-30] MEDS ORDERED: INSULIN DETEMIR 100 UNITS/ML MDV SQ SCH (22:00)
[2017-07-30] MEDS: THIAMINE HCL 100 MG TABLET (FP) PO SCH (22:25)
--- NOTE | 2017-07-30 23:37 | PN ---
Progress Note, Physician History of Present Illness: Pt w/ pleuritic chest pain - Current Medication List Current Medications: Active Medications Clonidine (Catapres -) 0.1 mg PO BID [facility] Last Admin: 07/30/17 22:24 Dose: 0.1 mg Cyclobenzaprine HCl (Flexeril -) 10 mg PO TID [facility] Last Admin: 07/30/17 22:24 Dose: 10 mg Fluconazole (Diflucan -) 200 mg PO DAILY [facility] Stop: 08/09/17 13:45 Gabapentin (Neurontin -) 100 mg PO TID [facility] Last Admin: 07/30/17 22:24 Dose: 100 mg Ceftaroline Fosamil 600 mg/ (Dextrose) 100 mls @ 200 mls/hr IVPB BID [facility] PRN Reason: Protocol Last Admin: 07/30/17 22:25 Dose: 200 mls/hr Daptomycin 560 mg/ Sodium (Chloride) 100 mls @ 200 mls/hr IVPB DAILY [facility] PRN Reason: Protocol Insulin Aspart (Novolog Vial Sliding Scale -) 1 vial SQ Q4HPO [facility] PRN Reason: Protocol Last Admin: 07/30/17 22:18 Dose: 12 unit Insulin Detemir (Levemir Vial) 15 units SQ [facility] Last Admin: 07/30/17 22:22 Dose: 15 unit Morphine Sulfate (Morphine Sulfate) 2 mg IVPUSH Q4H PRN PRN Reason: PAIN LEVEL 6-10 Last Admin: 07/30/17 22:26 Dose: 2 mg Nicotine (Nicoderm Patch -) 21 mg TD DAILY [facility] Nicotine Polacrilex (Nicorette Gum -) 2 mg BUC Q2H PRN PRN Reason: NICOTINE REPLACEMENT RX Ondansetron HCl (Zofran Odt -) 8 mg SL Q6H PRN PRN Reason: NAUSEA AND/OR VOMITING Pantoprazole Sodium (Protonix -) 40 mg PO BID [facility] Last Admin: 07/30/17 22:25 Dose: 40 mg Multivit/Folic Acid/Iron ( Vitamins (Sjr) -) 1 tab PO DAILY [facility] Sucralfate (Carafate Oral Suspension -) 1 gm PO QID [facility] Last Admin: 07/30/17 22:23 Dose: 1 gm Thiamine HCl (Vitamin B1 -) 100 mg PO [facility] Last Admin: 07/30/17 22:25 Dose: 100 mg - Objective Vital Signs: Vital Signs Temperature 99.4 F 07/30/17 21:13 Pulse Rate 121 H 07/30/17 21:13 Respiratory Rate 20 07/30/17 21:13 Blood Pressure 130/76 07/30/17 21:13 O2 Sat by Pulse Oximetry (%) 100 07/30/17 10:00 Neck: Yes: WNL, Supple Cardiovascular: Yes: WNL, Regular Rate and Rhythm Respiratory: Yes: WNL, Regular, CTA Bilaterally Gastrointestinal: Yes: WNL, Normal Bowel Sounds, Soft Extremities: Yes: Other (Lt forearm w/ increased warmth) Labs: CBC, BMP 07/30/17 05:40 07/30/17 22:50 INR, PTT INR 1.02 (0.82-1.09) 07/26/17 05:55 Fibrinogen 788.0 mg/dL (238-498) H 07/27/17 06:15 Problem List - Problems (1) Sepsis Assessment/Plan: S/P I&D/debridement/fasciotomy Lt forearm MRSA Bacteremia/supprative thrombophlebitis IV daptomyocin/ceftaroline CT scan abd/chest: Septic emboli/anascra Cardio consult for possibilty of PEG Code(s): A41.9 - SEPSIS, UNSPECIFIED ORGANISM (2) Diabetic ketoacidosis Assessment/Plan: Increase levemir Cont sliding scale w/ coverge Reconsult endo Code(s): E13.10 - OTH DIABETES MELLITUS WITH KETOACIDOSIS WITHOUT COMA Qualifiers: Diabetes mellitus type: type 1 Diabetes mellitus complication detail: without coma Qualified Code(s): E10.10 - Type 1 diabetes mellitus with ketoacidosis without coma (3) Opioid dependence with withdrawal Code(s): F11.23 - OPIOID DEPENDENCE WITH WITHDRAWAL
[2017-07-31] MEDS: INSULIN SLIDING SCALE (NOVOLOG) 1 VIAL SQ SCH ×6 (01:50→23:57)
[2017-07-31] MEDS ORDERED: INSULIN DETEMIR 100 UNITS/ML MDV SQ SCH (01:58)
[2017-07-31] MEDS: GABAPENTIN 100 MG CAPSULE (FP) PO SCH (06:20)
[2017-07-31] MEDS: CYCLOBENZAPRINE HCL 10 MG TABLET (FP) PO SCH ×3 (06:21→23:56)
[2017-07-31] MEDS: morphine SULFATE 4 MG/ML VIAL IVPUSH PRN ×4 (06:31→23:59)
[2017-07-31 07:53] LABS: ANION GAP 9 (8-16); BILIRUBIN,TOTAL 0.6 mg/dL (0.2-1.0); BLOOD UREA NITROGEN 13 mg/dL (7-18); CHLORIDE 99 mmol/L (98-107); CO2 28 mmol/L (21-32); CREATININE 0.6 mg/dL (0.7-1.3); GLUCOSE,RANDOM 88 mg/dL (74-106); MAGNESIUM 1.6 mg/dL (1.8-2.4); PHOSPHOROUS 4.3 mg/dL (2.5-4.9); POTASSIUM 4.2 mmol/L (3.5-5.1); SGOT/AST 21 U/L (15-37); SGPT/ALT 32 U/L (12-78); SODIUM 136 mmol/L (136-145)
[2017-07-31 07:55] LABS: ALK PHOS 312 U/L (45-117); TOT PROT 5.2 g/dl (6.4-8.2)
[2017-07-31 07:59] LABS: BASO % 0.8 % (0-2.0); EOS % 0.5 % (0-4.5); HEMATOCRIT 23.5 % (35.4-49); HEMOGLOBIN 7.8 GM/dL (11.7-16.9); LYMPH % 12.3 % (8-40); MCH 31.2 pg (25.7-33.7); MEAN CELL VOLUME 94.5 fl (80-96); MEAN PLT VOLUME 9.6 fl (7.5-11.1); NEUT % 82.4 % (42.8-82.8); PLATELET COUNT 442 K/MM3 (134-434); RBC 2.49 M/mm3 (4.00-5.60); RDW 17.6 % (11.9-15.9); WHITE BLOOD COUNT 21.6 K/mm3 (4.0-10.0)
--- NOTE | 2017-07-31 08:36 | PN ---
Progress Note, Physician Chief Complaint: IVDA with left arm cellulitis and infected thrombophlebitis History of Present Illness: 21yo LHD male PMH type 1 DM, current IV heroin user, Hepatitis C presented with altered mental status and generalized weakness. Complains of some pain in the left arm. CT scan of the chest reveals a presumed spetic pneumonia. Evaluation by IR for thoracentesis is pending. He has no other complaints. - Current Medication List Current Medications: Active Medications Clonidine (Catapres -) 0.1 mg PO BID [facility] Last Admin: 07/30/17 22:24 Dose: 0.1 mg Cyclobenzaprine HCl (Flexeril -) 10 mg PO TID [facility] Last Admin: 07/31/17 06:21 Dose: 10 mg Fluconazole (Diflucan -) 200 mg PO DAILY [facility] Stop: 08/09/17 13:45 Gabapentin (Neurontin -) 100 mg PO TID [facility] Last Admin: 07/31/17 06:20 Dose: 100 mg Ceftaroline Fosamil 600 mg/ (Dextrose) 100 mls @ 200 mls/hr IVPB BID [facility] PRN Reason: Protocol Last Admin: 07/30/17 22:25 Dose: 200 mls/hr Daptomycin 560 mg/ Sodium (Chloride) 100 mls @ 200 mls/hr IVPB DAILY [facility] PRN Reason: Protocol Insulin Aspart (Novolog Vial Sliding Scale -) 1 vial SQ Q4HPO [facility] PRN Reason: Protocol Last Admin: 07/31/17 06:19 Dose: Not Given Insulin Detemir (Levemir Vial) 30 units SQ HS [facility] Morphine Sulfate (Morphine Sulfate) 2 mg IVPUSH Q4H PRN PRN Reason: PAIN LEVEL 6-10 Last Admin: 07/31/17 06:31 Dose: 2 mg Nicotine (Nicoderm Patch -) 21 mg TD DAILY [facility] Nicotine Polacrilex (Nicorette Gum -) 2 mg BUC Q2H PRN PRN Reason: NICOTINE REPLACEMENT RX Ondansetron HCl (Zofran Odt -) 8 mg SL Q6H PRN PRN Reason: NAUSEA AND/OR VOMITING Pantoprazole Sodium (Protonix -) 40 mg PO BID [facility] Last Admin: 07/30/17 22:25 Dose: 40 mg Multivit/Folic Acid/Iron ( Vitamins (Sjr) -) 1 tab PO DAILY [facility] Sucralfate (Carafate Oral Suspension -) 1 gm PO QID [facility] Last Admin: 07/30/17 22:23 Dose: 1 gm Thiamine HCl (Vitamin B1 -) 100 mg PO HS [facility] Last Admin: 07/30/17 22:25 Dose: 100 mg - Objective Vital Signs: Vital Signs Temperature 98.3 F 07/31/17 06:18 Pulse Rate 114 H 07/31/17 06:18 Respiratory Rate 20 07/31/17 06:18 Blood Pressure 125/75 07/31/17 06:18 O2 Sat by Pulse Oximetry (%) 100 07/30/17 22:00 Constitutional: Yes: No Distress, Calm, Poor Hygeine, Thin HENT: Yes: Atraumatic, Normocephalic Neck: Yes: Supple, Trachea Midline Cardiovascular: Yes: Regular Rate and Rhythm, S1, S2. No: Murmur Respiratory: Yes: Regular, Diminished (posterolaterally bilaterally) Gastrointestinal: Yes: Normal Bowel Sounds, Soft. No: Tenderness ...Rectal Exam: Yes: Deferred Genitourinary: No: CVA Tenderness - Left, CVA Tenderness - Right Musculoskeletal: No: Muscle Pain, Muscle Weakness Extremities: No: Cool, Cyanosis Edema: Yes Edema: LUE: 1+ Peripheral Pulses WNL: Yes Peripheral Pulses: Left Radial: 2+, Right Radial: 2+, Left Doralis Pedis: 2+, Right Dorsalis Pedis: 2+, Left Femoral: 2+, Right Femoral: 2+ Integumentary: No: Jaundice, Rash Wound/Incision: Yes: Unapproximated. No: Draining, Reddened Neurological: Yes: Alert, Oriented Psychiatric: Yes: Alert, Oriented Labs: CBC, BMP 07/31/17 06:00 07/31/17 06:00 INR, PTT INR 1.02 (0.82-1.09) 07/26/17 05:55 Fibrinogen 788.0 mg/dL (238-498) H 07/27/17 06:15 Problem List - Problems (1) MRSA (methicillin resistant Staphylococcus aureus) septicemia Assessment/Plan: 21 yo LHD male with Hepatitis C, DM type 1 in DKA with aggressive left forearm cellulitis, thrombophlebitis, and draining abscess at the site of infecting IV drugs. MRSA septicemia, secondary to injecting heroin with contaminated needles. POD#5 s/p I&D and debridement of infected thrombophlebitis left forearm. The dorsal forearm is more warm to touch, ultrasoudn showed no remaining collection. WBC now up to 21, all blood cultures are positive. Focus of infection appears to be MRSA pneumonia and effusions Dressing Left forearm/ antecubital fossa changed Wound Measurement: two linear 3 [id number] healthy soft tissue and veins no purulent drainage Dressing instructions: 1/2inch iodoform packing, 4X4 gauze sponges, tape IV antibiotics per ID Agree with IR for drainage of the chest left arm elevation on a pillow Code(s): A41.02 - SEPSIS DUE TO METHICILLIN RESISTANT STAPHYLOCOCCUS AUREUS (2) Thrombophlebitis arm Code(s): I80.8 - PHLEBITIS AND THROMBOPHLEBITIS OF OTHER SITES (3) Abscess of forearm Code(s): L02.419 - CUTANEOUS ABSCESS OF LIMB, UNSPECIFIED (4) Opioid dependence with withdrawal Code(s): F11.23 - OPIOID DEPENDENCE WITH WITHDRAWAL (5) Diabetes Code(s): E11.9 - TYPE 2 DIABETES MELLITUS WITHOUT COMPLICATIONS Qualifiers: Diabetes mellitus type: type 1 Diabetes mellitus complication status: without complication Qualified Code(s): E10.9 - Type 1 diabetes mellitus without complications
--- NOTE | 2017-07-31 09:01 | PN ---
Progress Note, Physician Chief Complaint: ID Situation remains concerning that persistant bacteremia MRSA with WBC 21,000 Daptomycin & Ceftaroline Yesterday I had discussed case at [facility] with housestaff regarding the findings of suspected necrotizing MRSA pneumonia Suggesting possiblilty of suppurative throbophlebitis of the larger veins in the neck chest. He needs duplex studies today - Current Medication List Current Medications: Active Medications Clonidine (Catapres -) 0.1 mg PO BID [facility] Last Admin: 07/30/17 22:24 Dose: 0.1 mg Cyclobenzaprine HCl (Flexeril -) 10 mg PO TID [facility] Last Admin: 07/31/17 06:21 Dose: 10 mg Fluconazole (Diflucan -) 200 mg PO DAILY [facility] Stop: 08/09/17 13:45 Gabapentin (Neurontin -) 100 mg PO TID [facility] Last Admin: 07/31/17 06:20 Dose: 100 mg Ceftaroline Fosamil 600 mg/ (Dextrose) 100 mls @ 200 mls/hr IVPB BID [facility] PRN Reason: Protocol Last Admin: 07/30/17 22:25 Dose: 200 mls/hr Daptomycin 560 mg/ Sodium (Chloride) 100 mls @ 200 mls/hr IVPB DAILY [facility] PRN Reason: Protocol Insulin Aspart (Novolog Vial Sliding Scale -) 1 vial SQ Q4HPO [facility] PRN Reason: Protocol Last Admin: 07/31/17 06:19 Dose: Not Given Insulin Detemir (Levemir Vial) 30 units SQ HS [facility] Morphine Sulfate (Morphine Sulfate) 2 mg IVPUSH Q4H PRN PRN Reason: PAIN LEVEL 6-10 Last Admin: 07/31/17 06:31 Dose: 2 mg Nicotine (Nicoderm Patch -) 21 mg TD DAILY [facility] Nicotine Polacrilex (Nicorette Gum -) 2 mg BUC Q2H PRN PRN Reason: NICOTINE REPLACEMENT RX Ondansetron HCl (Zofran Odt -) 8 mg SL Q6H PRN PRN Reason: NAUSEA AND/OR VOMITING Pantoprazole Sodium (Protonix -) 40 mg PO BID [facility] Last Admin: 07/30/17 22:25 Dose: 40 mg Multivit/Folic Acid/Iron ( Vitamins (Sjr) -) 1 tab PO DAILY [facility] Sucralfate (Carafate Oral Suspension -) 1 gm PO QID [facility] Last Admin: 07/30/17 22:23 Dose: 1 gm Thiamine HCl (Vitamin B1 -) 100 mg PO HS [facility] Last Admin: 07/30/17 22:25 Dose: 100 mg - Objective Vital Signs: Vital Signs Temperature 98.3 F 07/31/17 06:18 Pulse Rate 114 H 07/31/17 06:18 Respiratory Rate 20 07/31/17 06:18 Blood Pressure 125/75 07/31/17 06:18 O2 Sat by Pulse Oximetry (%) 100 07/30/17 22:00 Labs: CBC, BMP 07/31/17 06:00 07/31/17 06:00 INR, PTT INR 1.02 (0.82-1.09) 07/26/17 05:55 Fibrinogen 788.0 mg/dL (238-498) H 07/27/17 06:15 Assessment/Plan Microbiology 07/26/17 15:30 Arm - Left Forearm Gram Stain - Final 07/26/17 15:30 Arm - Left Forearm Wound Culture - Final S Aureus 07/26/17 08:20 Blood - Peripheral Venous Blood Culture - Final Staphylococcus Aureus 07/26/17 08:00 Blood - Peripheral Venous Blood Culture - Final Mr S Aureus 07/23/17 23:35 Blood - Peripheral Venous Blood Culture - Final Mr S Aureus Streptococcus Acidominimus 07/29/17 05:55 Blood - Picc Line Blood Culture - Preliminary Pending Organism 07/29/17 05:55 Blood - Picc Line Blood Culture - Preliminary Pending Organism 07/27/17 09:20 Blood - Peripheral Venous Blood Culture - Preliminary Staphylococcus Latex Coag Pos 07/27/17 08:41 Blood - Peripheral Venous Blood Culture - Preliminary Staphylococcus Latex Coag Pos Laboratory Tests 07/30/17 07/31/17 07/31/17 05:40 06:00 06:00 WBC 21.6 H Hgb 7.8 L Hct 23.5 L Plt Count 442 H D Neutrophils % 82.4 Lymphocytes % 12.3 D Monocytes % 4.0 Eosinophils % 0.5 Basophils % 0.8 ESR > 140 H BUN 13 Creat Clearance w eGFR > 60 Total Bilirubin 0.6 D AST 21 ALT 32 Alkaline Phosphatase 312 H Assessment Suppurative phlebitis of left arm bacteremia MRSA persistant Concerns for Empyema Phlebitis of the larger veins in the neck chest Necrotizing pneumonia MRSA Plan 1. Order for neck chest duplex today 2. Repeat blood culture tomorrow ( Note ESR 140!) 3. Interventional radiology thoracentesis for diagnostic reasons 4. Continue Dapto and Ceftaroline though Daptomycin not ideally suited to treatment of lung infection ( inactivated by surfactant). Never the less if he has a focus of infection it wount matter what we treat him him with . We could consider substituting Televancin for dapto if we can get it 5. Discussed with Dr Beauchamp who has been actively participating in the care of this very sick young man. Frank Rojas MD
[2017-07-31] MEDS ORDERED: BUPRENORPHINE/NALOXONE 2 MG/0.5 MG FILM PACKET SL ONE (09:09)
--- NOTE | 2017-07-31 09:14 | CON.CARD ---
Consult Consult Specialty:: CArdiology Referred by:: Dr. Goodwin Reason for Consultation:: For PEG - History of Present Illness Chief Complaint: Persistent + blood cultures History of Present Illness: Chart reviewed. In summary, Mr. Figueroa is a 21 yo M with Hep C and IVDA with polymicrobial bacteremia with persistently + blood cultures. ID is concerned for endocarditis and has requested a PEG. TTE was non-diagnostic. - History Source History Provided By: Patient, Medical Record Limitations to Obtaining History: Clinical Condition - Past Medical History Gastrointestinal: Yes: Other (Hep C) Infectious Disease: Yes: Other (HEP C) Psych: Yes: Addictions Endocrine: Yes: Diabetes Mellitus Additional Medical History: polysubstance use - Alcohol/Substance Use Hx Alcohol Use: No History of Substance Use: reports: Cocaine, Heroin, Marijuana - Smoking History Smoking history: Unknown if ever smoked Have you smoked in the past 12 months: Yes Aproximately how many cigarettes per day: 20 - Social History Usual Living Arrangement: With Significant Other ADL: Independent Home Medications - Allergies Allergies/Adverse Reactions: Allergies Allergy/AdvReac Type Severity Reaction Status Date / Time No Known Allergies Allergy Verified 07/23/17 23:11 - Home Medications Home Medications: Ambulatory Orders Insulin Aspart [Novolog] 100 unit SQ ASDIR 07/01/15 Insulin Glargine,Hum.rec.anlog [Lantus Solostar PEN (NF)] 30 units SQ HS Family Disease History - Family Disease History Family Disease History: Other: Father (healthy), Mother (healthy), Brother (IDDM ) Review of Systems - Review of Systems Constitutional: reports: Chills, Fever HENT: denies: No Symptoms, Difficult Swallowing, Ear Discharge, Ear Pain, Epistaxis, Gingival Bleeding, Hearing Loss, Mouth Swelling, Nasal Congestion, Ocular Prosthesis, Throat Pain, Toothache, Ringing in Ears, Other Neck: denies: No Symptoms, Decreased ROM, Lumps, Pain on Movement, Stiffness, Swollen Glands, Tenderness, Other Respiratory: reports: Exercise Intolerance Gastrointestinal: reports: Other (DENIES H/O GI Bleeding or of esophageal varices) Genitourinary: denies: No Symptoms, Burning, Discharge, Dysuria, Flank Pain, Frequency, Hematuria, Incontinence, Lesions, Menses, Pain, Testicular Mass, Testicular Pain, Testicular Swelling, Urgency, Vaginal Bleeding, Other Breasts: denies: No Symptoms Reported, See HPI, Breast Implants, Discharge from Nipple, Lumps, Pain, Skin Changes, Other Musculoskeletal: denies: No Symptoms, Back Pain, Crepitus, Decreased ROM, Extremity Pain, Joint Pain, Joint Swelling, Muscle Pain, Muscle Cramps, Muscle Weakness, Other Integumentary: denies: No Symptoms, Blister, Bruising, Change in Color, Eczema, Erythema, Incision, Lesions, Lump, Pallor, Pruritis, Rash, Wound, Other Neurological: denies: No Symptoms, Change in LOC, Change in Speech, Confusion, Dizziness, Headache, Incoordination, Numbness, Parasthesia, Pre-Existing Deficit , Seizure, Syncope, Tremors, Unsteady Gait, Weakness, Other - Risk Factors Known Risk Factors: No: Age, Diabetes Mellitus, Family History, Gender, Hypercholesterolemia, Hypertension, Physical Inactivity, Prior CA /Emb Stroke, Race, Smoking, Other Vital Signs: Vital Signs Temperature 98.3 F 07/31/17 06:18 Pulse Rate 114 H 07/31/17 06:18 Respiratory Rate 20 07/31/17 06:18 Blood Pressure 125/75 07/31/17 06:18 O2 Sat by Pulse Oximetry (%) 100 07/30/17 22:00 Constitutional: Yes: No Distress Respiratory: Yes: Other (b/l rhonchi) Gastrointestinal: Yes: Soft Cardiovascular: Yes: Regular Rate and Rhythm JVD: No Carotid Bruit: No PMI: Non-Displaced Heart Sounds: Yes: S1, S2 (RRR, no murmurs) Edema: No Neurological: Yes: Alert, Oriented - Other Data Labs, Other Data: CBC, BMP 07/31/17 06:00 07/31/17 06:00 INR, PTT INR 1.02 (0.82-1.09) 07/26/17 05:55 Fibrinogen 788.0 mg/dL (238-498) H 07/27/17 06:15 Sinus tach, no acute ST changes No ECG in last 24 hours Echo: Report Reviewed Imaging - Results Chest X-ray: Image Reviewed Cat Scan: Report Reviewed EKG: Report Reviewed, Image Reviewed Problem List - Problems (1) Infective endocarditis Code(s): I33.0 - ACUTE AND SUBACUTE INFECTIVE ENDOCARDITIS Qualifiers: Infective endocarditis organism: bacterial (2) Diabetic ketoacidosis Code(s): E13.10 - OTH DIABETES MELLITUS WITH KETOACIDOSIS WITHOUT COMA Qualifiers: Diabetes mellitus type: type 1 Diabetes mellitus complication detail: without coma Qualified Code(s): E10.10 - Type 1 diabetes mellitus with ketoacidosis without coma (3) MRSA (methicillin resistant Staphylococcus aureus) septicemia Code(s): A41.02 - SEPSIS DUE TO METHICILLIN RESISTANT STAPHYLOCOCCUS AUREUS Assessment/Plan IMP: IVDA with persistently + bacteremia and clinical concern for Endocarditis REC: Treat as endocarditis, ID following. Will schedule PEG for morning. ECG today.
--- NOTE | 2017-07-31 09:17 | PN ---
[facility] Progress Note (SOAP) Subjective: patient reports to symptoms of protracted opioid withdrawal after completing methadone detox, agrees to start swuboxone treatment today Objective: 07/31/17 09:16 Vital Signs - 24 hr 07/30/17 07/30/17 07/30/17 10:00 11:00 12:00 Temperature 98.9 F Pulse Rate 116 H 116 H 114 H Respiratory 18 20 20 Rate Blood Pressure 115/68 109/67 118/64 O2 Sat by Pulse 100 Oximetry (%) 07/30/17 07/30/17 07/30/17 14:00 16:00 21:00 Temperature 98.9 F Pulse Rate 114 H 105 H Respiratory 20 20 20 Rate Blood Pressure 117/79 111/65 O2 Sat by Pulse 100 Oximetry (%) 07/30/17 07/30/17 07/30/17 21:13 22:00 23:00 Temperature 99.4 F 98.6 F Pulse Rate 121 H 120 H Respiratory 20 20 Rate Blood Pressure 130/76 131/65 O2 Sat by Pulse 100 Oximetry (%) 07/31/17 07/31/17 01:00 06:18 Temperature 98.4 F 98.3 F Pulse Rate 122 H 114 H Respiratory 20 20 Rate Blood Pressure 128/66 125/75 O2 Sat by Pulse Oximetry (%) Laboratory Results - last 24 hr 07/30/17 07/30/17 07/30/17 05:40 11:51 16:29 WBC RBC Hgb Hct MCV MCH MCHC RDW Plt Count MPV Neutrophils % Lymphocytes % Monocytes % Eosinophils % Basophils % ESR > 140 H Sodium Potassium Chloride Carbon Dioxide Anion Gap BUN Creatinine Creat Clearance w eGFR POC Glucometer [phone] Random Glucose Calcium Phosphorus Magnesium Total Bilirubin AST ALT Alkaline Phosphatase Total Protein Albumin Blood Type Antibody Screen 07/30/17 07/30/17 07/31/17 22:16 22:50 01:47 WBC RBC Hgb Hct MCV MCH MCHC RDW Plt Count MPV Neutrophils % Lymphocytes % Monocytes % Eosinophils % Basophils % ESR Sodium Potassium Chloride Carbon Dioxide Anion Gap BUN Creatinine Creat Clearance w eGFR POC Glucometer 470 319 Random Glucose 488 H* D Calcium Phosphorus Magnesium Total Bilirubin AST ALT Alkaline Phosphatase Total Protein Albumin Blood Type Antibody Screen 07/31/17 07/31/17 07/31/17 06:00 06:00 06:00 WBC 21.6 H RBC 2.49 L Hgb 7.8 L Hct 23.5 L MCV 94.5 MCH 31.2 MCHC 33.0 RDW 17.6 H Plt Count 442 H D MPV 9.6 Neutrophils % 82.4 Lymphocytes % 12.3 D Monocytes % 4.0 Eosinophils % 0.5 Basophils % 0.8 ESR Sodium 136 Potassium 4.2 Chloride 99 Carbon Dioxide 28 Anion Gap 9 BUN 13 Creatinine 0.6 L Creat Clearance w eGFR > 60 POC Glucometer Random Glucose 88 D Calcium 7.0 L Phosphorus 4.3 Magnesium 1.6 L Total Bilirubin 0.6 D AST 21 ALT 32 Alkaline Phosphatase 312 H Total Protein 5.2 L Albumin 1.0 L Blood Type B POSITIVE Antibody Screen Negative 07/31/17 06:18 WBC RBC Hgb Hct MCV MCH MCHC RDW Plt Count MPV Neutrophils % Lymphocytes % Monocytes % Eosinophils % Basophils % ESR Sodium Potassium Chloride Carbon Dioxide Anion Gap BUN Creatinine Creat Clearance w eGFR POC Glucometer 101 Random Glucose Calcium Phosphorus Magnesium Total Bilirubin AST ALT Alkaline Phosphatase Total Protein Albumin Blood Type Antibody Screen Assessment: 07/31/17 09:16 OUD w protracted withdrwal after detox - start suboxone 4mg today, if tolerated 8mg daily in am , prescription sent to pharmacy 8mg x7 dasy. sussy needs appt at [facility] scheduled for aftercare within 7 days of disccharge. rom ordered for sleep. neurontin increased for symptomatic relief of withdrwal , can continue clonidine.
[2017-07-31] MEDS ORDERED: PT OWN MED DRAWER 7, Y5N ONE ×2 (09:52→15:45)
[2017-07-31] MEDS: FLUCONAZOLE 100 MG TABLET (UD) PO SCH (09:57)
[2017-07-31] MEDS: NICOTINE 21 MG/24 HOURS TOPICAL PATCH TD SCH (09:57)
[2017-07-31] MEDS: PRENATAL VITAMINS W/ FOLIC ACID TABLET (FP) PO SCH (09:57)
[2017-07-31] MEDS: cloNIDine HCL 0.1 MG TABLET PO SCH ×2 (09:57→23:56)
[2017-07-31] MEDS: SUCRALFATE 1 GM/10 ML UNIT DOSE CUPS PO SCH ×4 (09:57→23:56)
[2017-07-31] MEDS: PANTOPRAZOLE 40 MG TABLET (FP) PO SCH ×2 (09:58→23:57)
[2017-07-31] MEDS ORDERED: PANTOPRAZOLE 40 MG TABLET (FP) PO SCH (10:00)
[2017-07-31] MEDS: CEFTAROLINE FOSAMIL ACETATE 600 MG in DEXTROSE 5%-WATER - 100 ML IVPB SCH ×2 (10:05→23:57)
[2017-07-31] MEDS: SODIUM CHLORIDE IVPB SCH (11:05)
[2017-07-31] MEDS: DAPTOMYCIN IVPB SCH (11:05)
[2017-07-31] MEDS ORDERED: INSULIN (NOVOLOG) ASPART 100 UNITS/ML 10ML VIAL ONE (11:45)
--- NOTE | 2017-07-31 13:41 | PN ---
Progress Note (short form) - Note Progress Note: PULMONARY Awake, alert. No fevers recorded but with persistent leukocytosis and bacteremia. Last Vital Signs Temp Pulse Resp BP Pulse Ox 98.3 F 121 H 18 117/62 100 07/31/17 08:00 07/31/17 08:00 07/31/17 08:00 07/31/17 08:00 07/30/17 22:00 Gen: awake, alert Heart: tachycardic, regular Lung: decreased breath sounds at the bases Abd: soft, nontender Ext: LUE edema CBC, BMP 07/31/17 06:00 07/31/17 06:00 Active Medications Buprenorphine/Naloxone (Suboxone 8mg/2mg Sl Film -) 1 each SL DAILY [facility] Clonidine (Catapres -) 0.1 mg PO BID [facility] Last Admin: 07/31/17 09:57 Dose: 0.1 mg Cyclobenzaprine HCl (Flexeril -) 10 mg PO TID [facility] Last Admin: 07/31/17 06:21 Dose: 10 mg Fluconazole (Diflucan -) 200 mg PO DAILY [facility] Stop: 08/09/17 13:45 Last Admin: 07/31/17 09:57 Dose: 200 mg Gabapentin (Neurontin -) 300 mg PO TID [facility] Ceftaroline Fosamil 600 mg/ (Dextrose) 100 mls @ 200 mls/hr IVPB BID [facility] PRN Reason: Protocol Last Admin: 07/31/17 10:05 Dose: 200 mls/hr Daptomycin 560 mg/ Sodium (Chloride) 100 mls @ 200 mls/hr IVPB DAILY [facility] PRN Reason: Protocol Last Admin: 07/31/17 11:05 Dose: 200 mls/hr Insulin Aspart (Novolog Vial Sliding Scale -) 1 vial SQ Q4HPO [facility] PRN Reason: Protocol Last Admin: 07/31/17 11:54 Dose: 4 unit Insulin Detemir (Levemir Vial) 30 units SQ HS [facility] Morphine Sulfate (Morphine Sulfate) 2 mg IVPUSH Q4H PRN PRN Reason: PAIN LEVEL 6-10 Last Admin: 07/31/17 09:57 Dose: 2 mg Nicotine (Nicoderm Patch -) 21 mg TD DAILY [facility] Last Admin: 07/31/17 09:57 Dose: 21 mg Nicotine Polacrilex (Nicorette Gum -) 2 mg BUC Q2H PRN PRN Reason: NICOTINE REPLACEMENT RX Ondansetron HCl (Zofran Odt -) 8 mg SL Q6H PRN PRN Reason: NAUSEA AND/OR VOMITING Pantoprazole Sodium (Protonix -) 40 mg PO BID [facility] Last Admin: 07/31/17 09:58 Dose: 40 mg Multivit/Folic Acid/Iron ( Vitamins (Sjr) -) 1 tab PO DAILY [facility] Last Admin: 07/31/17 09:57 Dose: 1 tab Sucralfate (Carafate Oral Suspension -) 1 gm PO QID [facility] Last Admin: 07/31/17 09:57 Dose: 1 gm Thiamine HCl (Vitamin B1 -) 100 mg PO HS [facility] Last Admin: 07/30/17 22:25 Dose: 100 mg Zolpidem Tartrate (Ambien -) 10 mg PO HS PRN PRN Reason: INSOMNIA A/P Persistent MRSA Bacteremia/LUE Abscess s/p debridement Lung Nodules likely Septic Emboli Diabetic Ketoacidosis resolved Septic Shock resolving Thrombocytopenia improved Acute Kidney Injury improved Lactic Acidosis resolved +Troponins likely Demand Ischemia IVDU/Polysubstance Abuse Anemia - for diagnostic thoracentesis - continue antibiotics - f/u pending cultures until cleared - for PEG to r/o vegetations - monitor urine output, creatinine - monitor H/H - protonix - glucose control - DVT prophylaxis
[2017-07-31 14:11] LABS: ABS.CD19+ LYMPH 324 (12-645); HBSAG SCREEN Negative (Negative); HEP A AB, IGM Negative (Negative); HEP B CORE AB, TOT Negative (Negative)
[2017-07-31] MEDS: GABAPENTIN 300 MG CAPSULE (FP) PO SCH ×2 (14:30→23:57)
[2017-07-31 15:44] LABS: GLUCOSE,PLEURAL FLUID 174.055; TOTAL PROTEIN,PLEURAL FLUID 2.827
[2017-07-31 16:04] LABS: ABSOLUTE CD3 1893
[2017-07-31 16:05] LABS: %CD3 POS. LYMPH. 82.3; ABS. CD8 SUPPRESSOR 633; ABSOLUTE CD 4 HELPER 1212
[2017-07-31 16:06] LABS: % CD 4 POS. LYMPH. 52.7; % CD 8 POS. LYMPH. 27.5
[2017-07-31 17:34] LABS: PLEURAL FLUID APPEARANCE CLEAR; PLEURAL FLUID COLOR YELLOW
[2017-07-31 20:23] LABS: PLEURAL FLD EOSINOPHIL 1 %; PLEURAL FLUID LYMPHOCYTES 4 %; PLEURAL FLUID MESOTHELIAL 35 %; PLEURAL FLUID NEUTROPHIL 60 %
--- NOTE | 2017-07-31 21:57 | PN ---
Progress Note, Physician History of Present Illness: Pt's LUE in s sling that is raised - Current Medication List Current Medications: Active Medications Buprenorphine/Naloxone (Suboxone 8mg/2mg Sl Film -) 1 each SL DAILY [facility] Clonidine (Catapres -) 0.1 mg PO BID [facility] Last Admin: 07/31/17 09:57 Dose: 0.1 mg Cyclobenzaprine HCl (Flexeril -) 10 mg PO TID [facility] Last Admin: 07/31/17 14:30 Dose: Not Given Fluconazole (Diflucan -) 200 mg PO DAILY [facility] Stop: 08/09/17 13:45 Last Admin: 07/31/17 09:57 Dose: 200 mg Gabapentin (Neurontin -) 300 mg PO TID [facility] Last Admin: 07/31/17 14:30 Dose: Not Given Ceftaroline Fosamil 600 mg/ (Dextrose) 100 mls @ 200 mls/hr IVPB BID [facility] PRN Reason: Protocol Last Admin: 07/31/17 10:05 Dose: 200 mls/hr Daptomycin 560 mg/ Sodium (Chloride) 100 mls @ 200 mls/hr IVPB DAILY [facility] PRN Reason: Protocol Last Admin: 07/31/17 11:05 Dose: 200 mls/hr Insulin Aspart (Novolog Vial Sliding Scale -) 1 vial SQ Q4HPO [facility] PRN Reason: Protocol Last Admin: 07/31/17 17:41 Dose: 12 unit Insulin Detemir (Levemir Vial) 30 units SQ HS [facility] Morphine Sulfate (Morphine Sulfate) 2 mg IVPUSH Q4H PRN PRN Reason: PAIN LEVEL 6-10 Last Admin: 07/31/17 17:42 Dose: 2 mg Nicotine (Nicoderm Patch -) 21 mg TD DAILY [facility] Last Admin: 07/31/17 09:57 Dose: 21 mg Nicotine Polacrilex (Nicorette Gum -) 2 mg BUC Q2H PRN PRN Reason: NICOTINE REPLACEMENT RX Ondansetron HCl (Zofran Odt -) 8 mg SL Q6H PRN PRN Reason: NAUSEA AND/OR VOMITING Pantoprazole Sodium (Protonix -) 40 mg PO BID [facility] Last Admin: 07/31/17 09:58 Dose: 40 mg Multivit/Folic Acid/Iron ( Vitamins (Sjr) -) 1 tab PO DAILY [facility] Last Admin: 07/31/17 09:57 Dose: 1 tab Sucralfate (Carafate Oral Suspension -) 1 gm PO QID [facility] Last Admin: 07/31/17 18:05 Dose: 1 gm Thiamine HCl (Vitamin B1 -) 100 mg PO HS [facility] Last Admin: 07/30/17 22:25 Dose: 100 mg Zolpidem Tartrate (Ambien -) 10 mg PO HS PRN PRN Reason: INSOMNIA - Objective Vital Signs: Vital Signs Temperature 97.9 F 07/31/17 16:30 Pulse Rate 115 H 07/31/17 16:30 Respiratory Rate 20 07/31/17 16:30 Blood Pressure 119/74 07/31/17 16:30 O2 Sat by Pulse Oximetry (%) 100 07/31/17 10:00 Neck: Yes: WNL, Supple Cardiovascular: Yes: WNL, Regular Rate and Rhythm Respiratory: Yes: Diminished Gastrointestinal: Yes: WNL, Normal Bowel Sounds Extremities: Yes: Other (LT forearm w/ increased wrmth) Labs: CBC, BMP 07/31/17 06:00 07/31/17 06:00 INR, PTT INR 1.02 (0.82-1.09) 07/26/17 05:55 Fibrinogen 788.0 mg/dL (238-498) H 07/27/17 06:15 Problem List - Problems (1) Sepsis Assessment/Plan: S/P I&D/debridement/fasciotomy Lt forearm MRSA Bacteremia/supprative thrombophlebitis IV telavancin/ceftaroline CT scan abd/chest: Septic emboli/anascra Code(s): A41.9 - SEPSIS, UNSPECIFIED ORGANISM (2) Diabetic ketoacidosis Assessment/Plan: Cont levemir Cont sliding scale w/ coverge Code(s): E13.10 - OTH DIABETES MELLITUS WITH KETOACIDOSIS WITHOUT COMA Qualifiers: Diabetes mellitus type: type 1 Diabetes mellitus complication detail: without coma Qualified Code(s): E10.10 - Type 1 diabetes mellitus with ketoacidosis without coma (3) Opioid dependence with withdrawal Assessment/Plan: Cont suboxone Code(s): F11.23 - OPIOID DEPENDENCE WITH WITHDRAWAL (4) Pleural effusion Code(s): J90 - PLEURAL EFFUSION, NOT ELSEWHERE CLASSIFIED
[2017-07-31] MEDS: INSULIN DETEMIR 100 UNITS/ML MDV SQ SCH (23:56)
[2017-07-31] MEDS: THIAMINE HCL 100 MG TABLET (FP) PO SCH (23:57)
[2017-08-01] MEDS: ZOLPIDEM TARTRATE 5 MG TABLET PO PRN ×2 (00:08→21:48)
[2017-08-01] MEDS: INSULIN SLIDING SCALE (NOVOLOG) 1 VIAL SQ SCH ×6 (03:34→21:57)
[2017-08-01] MEDS: CYCLOBENZAPRINE HCL 10 MG TABLET (FP) PO SCH ×3 (06:05→21:47)
[2017-08-01] MEDS: GABAPENTIN 300 MG CAPSULE (FP) PO SCH ×3 (06:05→21:47)
[2017-08-01] MEDS ORDERED: dilTIAZem HCL 60 MG TABLET (FP) PO ONE (06:24)
--- NOTE | 2017-08-01 06:48 | PN ---
Progress Note (short form) - Note Progress Note: Called to see a patient said to be having tachycardia of 250/min. Nurse said the R pulse was 250/min and L 150/min. Pt asymptomatic. Patient was not febrile at the time. 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 PE: Young male, lying calmly in bed NM-R radial 140/min NM-L radial-140/min EKG: Sinus tachycardia @125/min Assessment/Plan: Sinus tachycardia synchronous pulses bilaterally Continue mx per cardiology and primary team
--- NOTE | 2017-08-01 08:47 | PN ---
Progress Note, Physician Chief Complaint: ID Says since thoracentesis can breathe better NO fever in last 48 hours Currently on Daptomycin an Ceftaroline as salvage MRSA regimen - Current Medication List Current Medications: Active Medications Buprenorphine/Naloxone (Suboxone 8mg/2mg Sl Film -) 1 each SL DAILY [facility] Clonidine (Catapres -) 0.1 mg PO BID [facility] Last Admin: 07/31/17 23:56 Dose: 0.1 mg Cyclobenzaprine HCl (Flexeril -) 10 mg PO TID [facility] Last Admin: 08/01/17 06:05 Dose: 10 mg Fluconazole (Diflucan -) 200 mg PO DAILY [facility] Stop: 08/09/17 13:45 Last Admin: 07/31/17 09:57 Dose: 200 mg Gabapentin (Neurontin -) 300 mg PO TID [facility] Last Admin: 08/01/17 06:05 Dose: 300 mg Ceftaroline Fosamil 600 mg/ (Dextrose) 100 mls @ 200 mls/hr IVPB BID [facility] PRN Reason: Protocol Last Admin: 07/31/17 23:57 Dose: 200 mls/hr Daptomycin 560 mg/ Sodium (Chloride) 100 mls @ 200 mls/hr IVPB DAILY [facility] PRN Reason: Protocol Last Admin: 07/31/17 11:05 Dose: 200 mls/hr Insulin Aspart (Novolog Vial Sliding Scale -) 1 vial SQ Q4HPO [facility] PRN Reason: Protocol Last Admin: 08/01/17 06:24 Dose: Not Given Insulin Detemir (Levemir Vial) 30 units SQ HS [facility] Last Admin: 07/31/17 23:56 Dose: 30 units Morphine Sulfate (Morphine Sulfate) 2 mg IVPUSH Q4H PRN PRN Reason: PAIN LEVEL 6-10 Last Admin: 07/31/17 23:59 Dose: 2 mg Nicotine (Nicoderm Patch -) 21 mg TD DAILY [facility] Last Admin: 07/31/17 09:57 Dose: 21 mg Nicotine Polacrilex (Nicorette Gum -) 2 mg BUC Q2H PRN PRN Reason: NICOTINE REPLACEMENT RX Ondansetron HCl (Zofran Odt -) 8 mg SL Q6H PRN PRN Reason: NAUSEA AND/OR VOMITING Pantoprazole Sodium (Protonix -) 40 mg PO BID [facility] Last Admin: 07/31/17 23:57 Dose: 40 mg Multivit/Folic Acid/Iron ( Vitamins (Sjr) -) 1 tab PO DAILY [facility] Last Admin: 07/31/17 09:57 Dose: 1 tab Sucralfate (Carafate Oral Suspension -) 1 gm PO QID [facility] Last Admin: 07/31/17 23:56 Dose: 1 gm Thiamine HCl (Vitamin B1 -) 100 mg PO HS [facility] Last Admin: 07/31/17 23:57 Dose: 100 mg Zolpidem Tartrate (Ambien -) 10 mg PO HS PRN PRN Reason: INSOMNIA Last Admin: 08/01/17 00:08 Dose: 10 mg - Objective Vital Signs: Vital Signs Temperature 98.5 F 08/01/17 06:00 Pulse Rate 129 H 08/01/17 06:00 Respiratory Rate 20 08/01/17 06:00 Blood Pressure 130/67 08/01/17 06:00 O2 Sat by Pulse Oximetry (%) 92 L 07/31/17 21:00 Constitutional: Yes: No Distress Neck: Yes: WNL, Supple Cardiovascular: Yes: S1, S2 Respiratory: Yes: Other (Rales RLL Diminished LLL) Gastrointestinal: Yes: WNL, Normal Bowel Sounds, Soft, Ascites, Distention Integumentary: Yes: Other (pale) Labs: CBC, BMP 07/31/17 06:00 07/31/17 06:00 INR, PTT INR 1.02 (0.82-1.09) 07/26/17 05:55 Fibrinogen 788.0 mg/dL (238-498) H 07/27/17 06:15 Assessment/Plan Microbiology 07/29/17 05:55 Blood - Picc Line Blood Culture - Final S Aureus 07/29/17 05:55 Blood - Picc Line Blood Culture - Final Mr S Aureus 07/23/17 23:35 Blood - Peripheral Venous Blood Culture - Final Mr S Aureus Streptococcus Acidominimus 07/23/17 23:35 Blood - Peripheral Venous Blood Culture - Final Mr S Aureus Streptococcus Acidominimus Laboratory Tests 07/28/17 07/30/17 07/31/17 10:00 22:50 06:00 WBC Hgb Hct Plt Count BUN 13 Creatinine 0.6 L Random Glucose 488 H* D AST 21 ALT 32 Alkaline Phosphatase 312 H Albumin 1.0 L Pleural Appearance Pleural WBC Pleural RBC Pleural Neutrophils Pleural Lymphocytes Pleural Mesothelial Pleural Total Protein Pleural LDH HCV Quantitation [id number] 07/31/17 07/31/17 06:00 14:30 WBC 21.6 H Hgb 7.8 L Hct 23.5 L Plt Count 442 H D BUN Creatinine Random Glucose AST ALT Alkaline Phosphatase Albumin Pleural Appearance Clear Pleural WBC 517 Pleural RBC 1,568 Pleural Neutrophils 60 Pleural Lymphocytes 4 Pleural Mesothelial 35 Pleural Total Protein 2.827 Pleural LDH 463.049 HCV Quantitation Assessment MRSA bacteremia suppurative throbophlebitis Dupllex chest neck negative Septic pulmonary emboli with PNA and ? parapneumonic effusions Severe anemia chronic disease/infection Plan Continue Ceftaroline Substitiute Telavancin for Dalbavancin for better lung penetration Thoracentesis today left side PEG tomorrow Repeat blood cultures
--- NOTE | 2017-08-01 10:42 | PN ---
Progress Note, Physician Chief Complaint: no acute distress - Current Medication List Current Medications: Active Medications Buprenorphine/Naloxone (Suboxone 8mg/2mg Sl Film -) 1 each SL DAILY [facility] Clonidine (Catapres -) 0.1 mg PO BID [facility] Last Admin: 07/31/17 23:56 Dose: 0.1 mg Cyclobenzaprine HCl (Flexeril -) 10 mg PO TID [facility] Last Admin: 08/01/17 06:05 Dose: 10 mg Fluconazole (Diflucan -) 200 mg PO DAILY [facility] Stop: 08/09/17 13:45 Last Admin: 07/31/17 09:57 Dose: 200 mg Gabapentin (Neurontin -) 300 mg PO TID [facility] Last Admin: 08/01/17 06:05 Dose: 300 mg Ceftaroline Fosamil 600 mg/ (Dextrose) 100 mls @ 200 mls/hr IVPB BID [facility] PRN Reason: Protocol Last Admin: 07/31/17 23:57 Dose: 200 mls/hr Daptomycin 560 mg/ Sodium (Chloride) 100 mls @ 200 mls/hr IVPB DAILY [facility] PRN Reason: Protocol Last Admin: 07/31/17 11:05 Dose: 200 mls/hr Insulin Aspart (Novolog Vial Sliding Scale -) 1 vial SQ Q4HPO [facility] PRN Reason: Protocol Last Admin: 08/01/17 06:24 Dose: Not Given Insulin Detemir (Levemir Vial) 30 units SQ HS [facility] Last Admin: 07/31/17 23:56 Dose: 30 units Morphine Sulfate (Morphine Sulfate) 2 mg IVPUSH Q4H PRN PRN Reason: PAIN LEVEL 6-10 Last Admin: 07/31/17 23:59 Dose: 2 mg Nicotine (Nicoderm Patch -) 21 mg TD DAILY [facility] Last Admin: 07/31/17 09:57 Dose: 21 mg Nicotine Polacrilex (Nicorette Gum -) 2 mg BUC Q2H PRN PRN Reason: NICOTINE REPLACEMENT RX Ondansetron HCl (Zofran Odt -) 8 mg SL Q6H PRN PRN Reason: NAUSEA AND/OR VOMITING Pantoprazole Sodium (Protonix -) 40 mg PO BID [facility] Last Admin: 07/31/17 23:57 Dose: 40 mg Multivit/Folic Acid/Iron ( Vitamins (Sjr) -) 1 tab PO DAILY [facility] Last Admin: 07/31/17 09:57 Dose: 1 tab Sucralfate (Carafate Oral Suspension -) 1 gm PO QID [facility] Last Admin: 07/31/17 23:56 Dose: 1 gm Thiamine HCl (Vitamin B1 -) 100 mg PO HS [facility] Last Admin: 07/31/17 23:57 Dose: 100 mg Zolpidem Tartrate (Ambien -) 10 mg PO HS PRN PRN Reason: INSOMNIA Last Admin: 08/01/17 00:08 Dose: 10 mg - Objective Vital Signs: Vital Signs Temperature 98.5 F 08/01/17 06:00 Pulse Rate 129 H 08/01/17 06:00 Respiratory Rate 20 08/01/17 06:00 Blood Pressure 130/67 08/01/17 06:00 O2 Sat by Pulse Oximetry (%) 92 L 07/31/17 21:00 Constitutional: Yes: No Distress Cardiovascular: Yes: Regular Rate and Rhythm Respiratory: Yes: CTA Bilaterally Gastrointestinal: Yes: Soft (soft, NT) Edema: No Neurological: Yes: Alert ...Motor Strength: WNL Labs: CBC, BMP 07/31/17 06:00 07/31/17 06:00 INR, PTT INR 1.02 (0.82-1.09) 07/26/17 05:55 Fibrinogen 788.0 mg/dL (238-498) H 07/27/17 06:15 Laboratory Tests 07/24/17 07/25/17 07/26/17 15:00 13:29 05:55 WBC Hgb Hct Plt Count INR 1.02 PTT (Actin FS) D-Dimer Sodium Potassium Creatinine Creat Clearance w eGFR Alkaline Phosphatase Stool Occult Blood Vancomycin Pre-Dose 12.882 H Hep A IgM Ab Confirm Hepatitis A Ab Total Hep Bs Antigen Hep Bs Antibody Hep B Core Total Ab Hepatitis C Antibody HIV 1&2 Antibody Screen Negative HIV P24 Antigen Negative 07/26/17 07/27/17 07/28/17 08:30 06:15 07:35 WBC Hgb Hct Plt Count INR PTT (Actin FS) 25.7 L D-Dimer > 5000 H Sodium Potassium Creatinine Creat Clearance w eGFR Alkaline Phosphatase Stool Occult Blood Positive Vancomycin Pre-Dose Hep A IgM Ab Confirm Hepatitis A Ab Total Hep Bs Antigen Hep Bs Antibody Hep B Core Total Ab Hepatitis C Antibody >11.0 H HIV 1&2 Antibody Screen HIV P24 Antigen 07/29/17 07/31/17 07/31/17 05:55 06:00 06:00 WBC 21.6 H Hgb 7.8 L Hct 23.5 L Plt Count 442 H D INR PTT (Actin FS) D-Dimer Sodium 136 Potassium 4.2 Creatinine 0.6 L Creat Clearance w eGFR > 60 Alkaline Phosphatase 312 H Stool Occult Blood Vancomycin Pre-Dose Hep A IgM Ab Confirm Negative Hepatitis A Ab Total Positive H Hep Bs Antigen Negative Hep Bs Antibody Non reactive Hep B Core Total Ab Negative Hepatitis C Antibody HIV 1&2 Antibody Screen HIV P24 Antigen Problem List - Problems (1) Infective endocarditis Code(s): I33.0 - ACUTE AND SUBACUTE INFECTIVE ENDOCARDITIS Qualifiers: Infective endocarditis organism: bacterial (2) Diabetic ketoacidosis Code(s): E13.10 - OTH DIABETES MELLITUS WITH KETOACIDOSIS WITHOUT COMA Qualifiers: Diabetes mellitus type: type 1 Diabetes mellitus complication detail: without coma Qualified Code(s): E10.10 - Type 1 diabetes mellitus with ketoacidosis without coma (3) MRSA (methicillin resistant Staphylococcus aureus) septicemia Code(s): A41.02 - SEPSIS DUE TO METHICILLIN RESISTANT STAPHYLOCOCCUS AUREUS Assessment/Plan IMP: IVDA with persistently + bacteremia and clinical concern for Endocarditis REC: Treat as endocarditis, ID following. PEG AM tomorrow. NPO after midnight
[2017-08-01] MEDS: PANTOPRAZOLE 40 MG TABLET (FP) PO SCH ×2 (10:56→21:47)
[2017-08-01] MEDS: cloNIDine HCL 0.1 MG TABLET PO SCH ×2 (10:57→21:47)
[2017-08-01] MEDS: BUPRENORPHINE/NALOXONE 8 MG/2 MG FILM PACKET SL SCH ×2 (10:57→18:54)
[2017-08-01] MEDS: SUCRALFATE 1 GM/10 ML UNIT DOSE CUPS PO SCH ×4 (10:57→21:47)
[2017-08-01] MEDS: FLUCONAZOLE 100 MG TABLET (UD) PO SCH (10:57)
[2017-08-01] MEDS: NICOTINE 21 MG/24 HOURS TOPICAL PATCH TD SCH (10:57)
[2017-08-01] MEDS: CEFTAROLINE FOSAMIL ACETATE 600 MG in DEXTROSE 5%-WATER - 100 ML IVPB SCH ×2 (10:58→21:48)
[2017-08-01] MEDS: PRENATAL VITAMINS W/ FOLIC ACID TABLET (FP) PO SCH (10:58)
[2017-08-01] MEDS: morphine SULFATE 4 MG/ML VIAL IVPUSH PRN ×3 (11:01→21:48)
[2017-08-01] MEDS ORDERED: PT OWN MED DRAWER 7, Y5N ONE (11:12)
--- NOTE | 2017-08-01 12:35 | PN ---
Progress Note, Physician History of Present Illness: PULMONARY ALERT,-C/O SOB,-COUGH. - Current Medication List Current Medications: Active Medications Buprenorphine/Naloxone (Suboxone 8mg/2mg Sl Film -) 1 each SL DAILY [facility] Last Admin: 08/01/17 10:57 Dose: 1 each Clonidine (Catapres -) 0.1 mg PO BID [facility] Last Admin: 08/01/17 10:57 Dose: 0.1 mg Cyclobenzaprine HCl (Flexeril -) 10 mg PO TID [facility] Last Admin: 08/01/17 06:05 Dose: 10 mg Fluconazole (Diflucan -) 200 mg PO DAILY [facility] Stop: 08/09/17 13:45 Last Admin: 08/01/17 10:57 Dose: 200 mg Gabapentin (Neurontin -) 300 mg PO TID [facility] Last Admin: 08/01/17 06:05 Dose: 300 mg Ceftaroline Fosamil 600 mg/ (Dextrose) 100 mls @ 200 mls/hr IVPB BID [facility] PRN Reason: Protocol Last Admin: 08/01/17 10:58 Dose: 200 mls/hr Insulin Aspart (Novolog Vial Sliding Scale -) 1 vial SQ Q4HPO [facility] PRN Reason: Protocol Last Admin: 08/01/17 06:24 Dose: Not Given Insulin Detemir (Levemir Vial) 30 units SQ HS [facility] Last Admin: 07/31/17 23:56 Dose: 30 units Morphine Sulfate (Morphine Sulfate) 2 mg IVPUSH Q4H PRN PRN Reason: PAIN LEVEL 6-10 Last Admin: 08/01/17 11:01 Dose: 2 mg Nicotine (Nicoderm Patch -) 21 mg TD DAILY [facility] Last Admin: 08/01/17 10:57 Dose: 21 mg Nicotine Polacrilex (Nicorette Gum -) 2 mg BUC Q2H PRN PRN Reason: NICOTINE REPLACEMENT RX Ondansetron HCl (Zofran Odt -) 8 mg SL Q6H PRN PRN Reason: NAUSEA AND/OR VOMITING Pantoprazole Sodium (Protonix -) 40 mg PO BID [facility] Last Admin: 08/01/17 10:56 Dose: 40 mg Multivit/Folic Acid/Iron ( Vitamins (Sjr) -) 1 tab PO DAILY [facility] Last Admin: 08/01/17 10:58 Dose: 1 tab Sucralfate (Carafate Oral Suspension -) 1 gm PO QID [facility] Last Admin: 08/01/17 10:57 Dose: 1 gm Thiamine HCl (Vitamin B1 -) 100 mg PO HS [facility] Last Admin: 07/31/17 23:57 Dose: 100 mg Zolpidem Tartrate (Ambien -) 10 mg PO HS PRN PRN Reason: INSOMNIA Last Admin: 08/01/17 00:08 Dose: 10 mg - Objective Vital Signs: Vital Signs Temperature 98.5 F 08/01/17 06:00 Pulse Rate 129 H 08/01/17 06:00 Respiratory Rate 08/01/17 06:00 Blood Pressure 130/67 08/01/17 06:00 O2 Sat by Pulse Oximetry (%) 92 L 07/31/17 21:00 Constitutional: Yes: Calm, Thin Eyes: Yes: WNL HENT: Yes: WNL Neck: Yes: WNL Cardiovascular: Yes: Tachycardia, S1, S2 Respiratory: Yes: CTA Bilaterally Gastrointestinal: Yes: Normal Bowel Sounds, Soft Edema: Yes (LUE) Labs: CBC, BMP 07/31/17 06:00 07/31/17 06:00 INR, PTT INR 1.02 (0.82-1.09) 07/26/17 05:55 Fibrinogen 788.0 mg/dL (238-498) H 07/27/17 06:15 Laboratory Tests 07/31/17 14:30 Pleural Fluid Source Pleural Pleural Color Yellow Pleural Appearance Clear Pleural WBC 517 Pleural RBC 1,568 Pleural Neutrophils 60 Pleural Lymphocytes 4 Pleural Eosinophils 1 Pleural Mesothelial 35 Pleural Total Protein 2.827 Pleural Albumin 1 Pleural LDH 463.049 Pleural Glucose 174.055 Pleural Amylase 8.226 Problem List - Problems (1) Abscess Code(s): L02.91 - CUTANEOUS ABSCESS, UNSPECIFIED (2) Gram-positive bacteremia Code(s): R78.81 - BACTEREMIA (3) Infective endocarditis Code(s): I33.0 - ACUTE AND SUBACUTE INFECTIVE ENDOCARDITIS Qualifiers: Infective endocarditis organism: bacterial (4) MRSA (methicillin resistant Staphylococcus aureus) septicemia Code(s): A41.02 - SEPSIS DUE TO METHICILLIN RESISTANT STAPHYLOCOCCUS AUREUS (5) Thrombophlebitis arm Code(s): I80.8 - PHLEBITIS AND THROMBOPHLEBITIS OF OTHER SITES (6) Nicotine dependence Code(s): F17.200 - NICOTINE DEPENDENCE, UNSPECIFIED, UNCOMPLICATED Qualifiers: Nicotine product type: cigarettes Substance use status: uncomplicated Qualified Code(s): F17.210 - Nicotine dependence, cigarettes, uncomplicated Assessment/Plan A/P Persistent MRSA Bacteremia/LUE Abscess s/p debridement Lung Nodules likely Septic Emboli Diabetic Ketoacidosis resolved Septic Shock resolving Thrombocytopenia improved Acute Kidney Injury improved Lactic Acidosis resolved +Troponins likely Demand Ischemia IVDU/Polysubstance Abuse Anemia Pleural effusion c/w exudate likely uncomplicated parapneumonic effusion - continue antibiotics - PEG to r/o vegetations - monitor urine output, creatinine - monitor H/H - protonix - glucose control - DVT prophylaxis - check cytology pleural fluid DR BRIONES
--- NOTE | 2017-08-01 14:44 | PN ---
Progress Note, Physician Chief Complaint: IVDA with left arm cellulitis and infected thrombophlebitis History of Present Illness: 21yo LHD male PMH type 1 DM, current IV heroin user, Hepatitis C presented with altered mental status and generalized weakness. Complains of some pain in the left arm. CT scan of the chest reveals a presumed spetic pneumonia. IR completed thoracentesis yesterday. Denies shortness of breath. He has no other complaints. - Current Medication List Current Medications: Active Medications Buprenorphine/Naloxone (Suboxone 8mg/2mg Sl Film -) 1 each SL DAILY [facility] Last Admin: 08/01/17 10:57 Dose: 1 each Clonidine (Catapres -) 0.1 mg PO BID [facility] Last Admin: 08/01/17 10:57 Dose: 0.1 mg Cyclobenzaprine HCl (Flexeril -) 10 mg PO TID [facility] Last Admin: 08/01/17 06:05 Dose: 10 mg Fluconazole (Diflucan -) 200 mg PO DAILY [facility] Stop: 08/09/17 13:45 Last Admin: 08/01/17 10:57 Dose: 200 mg Gabapentin (Neurontin -) 300 mg PO TID [facility] Last Admin: 08/01/17 06:05 Dose: 300 mg Ceftaroline Fosamil 600 mg/ (Dextrose) 100 mls @ 200 mls/hr IVPB BID [facility] PRN Reason: Protocol Last Admin: 08/01/17 10:58 Dose: 200 mls/hr TELAVANCIN HCL 700 mg/ (Dextrose) 292 mls @ 292 mls/hr IVPB DAILY [facility] Insulin Aspart (Novolog Vial Sliding Scale -) 1 vial SQ Q4HPO [facility] PRN Reason: Protocol Last Admin: 08/01/17 06:24 Dose: Not Given Insulin Detemir (Levemir Vial) 30 units SQ HS [facility] Last Admin: 07/31/17 23:56 Dose: 30 units Morphine Sulfate (Morphine Sulfate) 2 mg IVPUSH Q4H PRN PRN Reason: PAIN LEVEL 6-10 Last Admin: 08/01/17 11:01 Dose: 2 mg Nicotine (Nicoderm Patch -) 21 mg TD DAILY [facility] Last Admin: 08/01/17 10:57 Dose: 21 mg Nicotine Polacrilex (Nicorette Gum -) 2 mg BUC Q2H PRN PRN Reason: NICOTINE REPLACEMENT RX Ondansetron HCl (Zofran Odt -) 8 mg SL Q6H PRN PRN Reason: NAUSEA AND/OR VOMITING Pantoprazole Sodium (Protonix -) 40 mg PO BID [facility] Last Admin: 08/01/17 10:56 Dose: 40 mg Multivit/Folic Acid/Iron ( Vitamins (Sjr) -) 1 tab PO DAILY [facility] Last Admin: 08/01/17 10:58 Dose: 1 tab Sucralfate (Carafate Oral Suspension -) 1 gm PO QID [facility] Last Admin: 08/01/17 10:57 Dose: 1 gm Thiamine HCl (Vitamin B1 -) 100 mg PO HS [facility] Last Admin: 07/31/17 23:57 Dose: 100 mg Zolpidem Tartrate (Ambien -) 10 mg PO HS PRN PRN Reason: INSOMNIA Last Admin: 08/01/17 00:08 Dose: 10 mg - Objective Vital Signs: Vital Signs Temperature 98.5 F 08/01/17 06:00 Pulse Rate 129 H 08/01/17 06:00 Respiratory Rate 20 08/01/17 06:00 Blood Pressure 130/67 08/01/17 06:00 O2 Sat by Pulse Oximetry (%) 92 L 07/31/17 21:00 Constitutional: Yes: Well Nourished, No Distress, Calm Eyes: Yes: Conjunctiva Clear, EOM Intact HENT: Yes: Atraumatic, Normocephalic Neck: Yes: Supple, Trachea Midline Cardiovascular: Yes: Regular Rate and Rhythm, S1, S2. No: Murmur Respiratory: Yes: Regular, CTA Bilaterally Gastrointestinal: Yes: Normal Bowel Sounds, Soft. No: Tenderness ...Rectal Exam: Yes: Deferred Genitourinary: No: CVA Tenderness - Left, CVA Tenderness - Right Musculoskeletal: No: Muscle Pain, Muscle Weakness Extremities: No: Cold, Cool Edema: Yes Edema: LUE: 2+ Peripheral Pulses WNL: Yes Peripheral Pulses: Left Doralis Pedis: 2+, Right Dorsalis Pedis: 2+ Wound/Incision: Yes: Unapproximated. No: Draining, Reddened Neurological: Yes: Alert, Oriented Psychiatric: Yes: Alert, Oriented Labs: CBC, BMP 07/31/17 06:00 07/31/17 06:00 INR, PTT INR 1.02 (0.82-1.09) 07/26/17 05:55 Fibrinogen 788.0 mg/dL (238-498) H 07/27/17 06:15 Problem List - Problems (1) MRSA (methicillin resistant Staphylococcus aureus) septicemia Assessment/Plan: 21 yo LHD male with Hepatitis C, DM type 1 in DKA with aggressive left forearm cellulitis, thrombophlebitis, and draining abscess at the site of infecting IV drugs. MRSA septicemia, secondary to injecting heroin with contaminated needles. POD#5 s/p I&D and debridement of infected thrombophlebitis left forearm. The dorsal forearm is more warm to touch, ultrasoudn showed no remaining collection. WBC now up to 21, all blood cultures are positive. Focus of infection appears to be MRSA pneumonia and effusions Dressing Left forearm/ antecubital fossa changed Wound Measurement: two linear 2.8 [id number] healthy soft tissue and veins Dressing instructions: xeroform, 4X4 gauze sponges, tape IV antibiotics per ID Agree with IR for drainage of the chest left arm elevation on a pillow Code(s): A41.02 - SEPSIS DUE TO METHICILLIN RESISTANT STAPHYLOCOCCUS AUREUS (2) Thrombophlebitis arm Code(s): I80.8 - PHLEBITIS AND THROMBOPHLEBITIS OF OTHER SITES (3) Abscess of forearm Code(s): L02.419 - CUTANEOUS ABSCESS OF LIMB, UNSPECIFIED (4) Opioid dependence with withdrawal Code(s): F11.23 - OPIOID DEPENDENCE WITH WITHDRAWAL (5) Diabetes Code(s): E11.9 - TYPE 2 DIABETES MELLITUS WITHOUT COMPLICATIONS Qualifiers: Diabetes mellitus type: type 1 Diabetes mellitus complication status: without complication Qualified Code(s): E10.9 - Type 1 diabetes mellitus without complications
[2017-08-01] MEDS: TELAVANCIN HCL IVPB SCH (15:42)
[2017-08-01] MEDS: DEXTROSE 5% IVPB SCH (15:42)
[2017-08-01] MEDS: WATER IVPB SCH (15:42)
[2017-08-01] MEDS: DAPTOMYCIN IVPB SCH (15:46)
[2017-08-01] MEDS: SODIUM CHLORIDE IVPB SCH (15:46)
--- NOTE | 2017-08-01 16:25 | EKG ---
Test Reason : Blood Pressure : / mmHG Vent. Rate : 128 BPM Atrial Rate : 128 BPM P-R Int : 120 ms QRS Dur : 084 ms QT Int : 314 ms P-R-T Axes : 046 040 061 degrees QTc Int : 458 ms SINUS TACHYCARDIA OTHERWISE NORMAL ECG WHEN COMPARED WITH ECG OF 01-AUG-2017 06:33, NO SIGNIFICANT CHANGE WAS FOUND Confirmed by BHARAT CLEMONS MD ([id number]) on 08/01/2017 4:24:36 PM Referred By: MELECIO WILKS DRMNCHUNG Confirmed By:BHARAT CLEMONS MD
--- NOTE | 2017-08-01 16:27 | EKG ---
Test Reason : Blood Pressure : / mmHG Vent. Rate : 129 BPM Atrial Rate : 129 BPM P-R Int : 000 ms QRS Dur : 084 ms QT Int : 314 ms P-R-T Axes : 052 049 058 degrees QTc Int : 460 ms SINUS TACHYCARDIA NONSPECIFIC T WAVE ABNORMALITY ABNORMAL ECG WHEN COMPARED WITH ECG OF 24-JUL-2017 00:18, NON-SPECIFIC CHANGE IN ST SEGMENT IN LATERAL LEADS T WAVE INVERSION NO LONGER EVIDENT IN INFERIOR LEADS Confirmed by BHARAT CLEMONS MD ([id number]) on 08/01/2017 4:27:39 PM Referred By: Confirmed By:BHARAT CLEMONS MD
--- NOTE | 2017-08-01 18:08 | PATH ---
Surgical Pathology Report Patient Name: KAT RAE Med. Rec. #: [id number] /Age/Gender: 1995 (Age: 21) / M Account: [id number] Location: [facility] MED/SURG Taken: 07/26/2017 Received: 07/27/2017 Reported: 08/01/2017 Physicians: Torres Keys M.D. Kezia Goodwin M.D. Specimen(s) Received A: BX ANTRUM/BODY B: BX DISTAL ESOPHAGUS C: FOREIGN BODY VEIN-LEFT Clinical History Preoperative diagnosis: Acute blood loss, melena, anemia Left arm abscess, thrombophlebitis Postoperative diagnosis: Esophagitis Final Diagnosis A. STOMACH, ANTRUM/BODY BIOPSY: GASTRIC BODY MUCOSA WITH MILD CHRONIC GASTRITIS. IMMUNOHISTOCHEMICAL STAIN FOR H. PYLORI IS NEGATIVE. B. DISTAL ESOPHAGUS, BIOPSY: MARKEDLY INFLAMED AND ULCERATED SOFT TISSUE. FUNGAL FORMS MORPHOLOGICALLY CONSISTENT WITH MIO SPECIES ARE HIGHLIGHTED BY PAS SPECIAL STAIN. C. VEIN, FOREARM, LEFT, EXCISION: FIBROVASCULAR AND SCANT FIBROADIPOSE TISSUE WITH MARKED ACUTE AND CHRONIC INFLAMMATION AND HEMORRHAGE. Electronically Signed Aga Jackson M.D. Gross Description A. Received in formalin, labeled "biopsy antrum/body" are 4 jackson, irregular portions of soft tissue ranging from 0.1-0.3 cm. in greatest dimension. The specimens are submitted in toto in one cassette. B. Received in formalin, labeled "biopsy distal esophagus" are 6 jackson, irregular portions of soft tissue ranging from 0.1-0.5 cm. in greatest dimension. The specimens are submitted in toto in one cassette. C. Received in formalin labeled "left forearm vein," is a 1.8 x 1.0 x 0.5 cm aggregate of multiple jackson-brown, irregular portions of soft tissue, consistent with portions of vasculature. The specimens are sectioned and entirely submitted in one cassette. 07/27/201707/27/2017
[2017-08-01] MEDS ORDERED: INSULIN (NOVOLOG) ASPART 100 UNITS/ML 10ML VIAL ONE (21:41)
[2017-08-01] MEDS: THIAMINE HCL 100 MG TABLET (FP) PO SCH (21:47)
[2017-08-01] MEDS: INSULIN DETEMIR 100 UNITS/ML MDV SQ SCH ×2 (21:48→22:20)
[2017-08-01] MEDS: ACETAMINOPHEN 325 MG TABLET (FP) PO PRN (22:17)
[2017-08-02] MEDS: GABAPENTIN 300 MG CAPSULE (FP) PO SCH ×3 (07:09→22:10)
[2017-08-02] MEDS: CYCLOBENZAPRINE HCL 10 MG TABLET (FP) PO SCH ×3 (07:09→22:10)
[2017-08-02] MEDS ORDERED: INSULIN (NOVOLOG) ASPART 100 UNITS/ML 10ML VIAL ONE (07:11)
[2017-08-02] MEDS ORDERED: INSULIN DETEMIR 100 UNITS/ML MDV SQ ONE (07:12)
[2017-08-02] MEDS: INSULIN SLIDING SCALE (NOVOLOG) 1 VIAL SQ SCH ×5 (07:51→22:11)
[2017-08-02] MEDS: morphine SULFATE 4 MG/ML VIAL IVPUSH PRN (08:02)
[2017-08-02 08:04] LABS: BASO % 1.7 % (0-2.0); EOS % 0.7 % (0-4.5); HEMATOCRIT 22.1 % (35.4-49); HEMOGLOBIN 7.1 GM/dL (11.7-16.9); LYMPH % 13.4 % (8-40); MCH 30.8 pg (25.7-33.7); MCHC 32.2 g/dl (32.0-35.9); MEAN CELL VOLUME 95.8 fl (80-96); MEAN PLT VOLUME 8.6 fl (7.5-11.1); MONO % 6.2 % (3.8-10.2); PLATELET COUNT 563 K/MM3 (134-434); RDW 16.9 % (11.9-15.9); WHITE BLOOD COUNT 15.8 K/mm3 (4.0-10.0)
[2017-08-02 08:38] LABS: ANION GAP 7 (8-16); BLOOD UREA NITROGEN 15 mg/dL (7-18); CHLORIDE 99 mmol/L (98-107); CO2 28 mmol/L (21-32); CREATININE 0.7 mg/dL (0.7-1.3); MAGNESIUM 1.5 mg/dL (1.8-2.4); POTASSIUM 4.4 mmol/L (3.5-5.1); SODIUM 134 mmol/L (136-145)
[2017-08-02 09:23] LABS: GLUCOSE,RANDOM 361 mg/dL (74-106)
[2017-08-02 09:24] LABS: CALCIUM 6.8 mg/dL (8.5-10.1)
--- NOTE | 2017-08-02 10:16 | PN ---
Progress Note, Physician Chief Complaint: IVDA with left arm cellulitis and infected thrombophlebitis History of Present Illness: 21yo LHD male PMH type 1 DM, current IV heroin user, Hepatitis C presented with altered mental status and generalized weakness. Complains of some pain in the left arm. CT scan of the chest reveals a presumed spetic pneumonia. IR completed a second thoracentesis yesterday. Denies shortness of breath. He has no other complaints. - Current Medication List Current Medications: Active Medications Acetaminophen (Tylenol -) 650 mg PO Q6H PRN PRN Reason: FEVER Last Admin: 08/01/17 22:17 Dose: 650 mg Buprenorphine/Naloxone (Suboxone 8mg/2mg Sl Film -) 1 each SL DAILY [facility] Last Admin: 08/01/17 18:54 Dose: Not Given Clonidine (Catapres -) 0.1 mg PO BID [facility] Last Admin: 08/01/17 21:47 Dose: 0.1 mg Cyclobenzaprine HCl (Flexeril -) 10 mg PO TID [facility] Last Admin: 08/02/17 07:09 Dose: Not Given Fluconazole (Diflucan -) 200 mg PO DAILY [facility] Stop: 08/09/17 13:45 Last Admin: 08/01/17 10:57 Dose: 200 mg Gabapentin (Neurontin -) 300 mg PO TID [facility] Last Admin: 08/02/17 07:09 Dose: Not Given Ceftaroline Fosamil 600 mg/ (Dextrose) 100 mls @ 200 mls/hr IVPB BID [facility] PRN Reason: Protocol Last Admin: 08/01/17 21:48 Dose: 200 mls/hr TELAVANCIN HCL 700 mg/ (Dextrose) 292 mls @ 292 mls/hr IVPB DAILY [facility] Last Admin: 08/01/17 15:42 Dose: 292 mls/hr Insulin Aspart (Novolog Vial Sliding Scale -) 1 vial SQ ACHS [facility] PRN Reason: Protocol Last Admin: 08/02/17 07:51 Dose: 10 units Insulin Detemir (Levemir Vial) 30 units SQ HS [facility] Last Admin: 08/01/17 22:20 Dose: Not Given Morphine Sulfate (Morphine Sulfate) 2 mg IVPUSH Q4H PRN PRN Reason: PAIN LEVEL 6-10 Last Admin: 08/02/17 08:02 Dose: 2 mg Nicotine (Nicoderm Patch -) 21 mg TD DAILY [facility] Last Admin: 08/01/17 10:57 Dose: 21 mg Nicotine Polacrilex (Nicorette Gum -) 2 mg BUC Q2H PRN PRN Reason: NICOTINE REPLACEMENT RX Ondansetron HCl (Zofran Odt -) 8 mg SL Q6H PRN PRN Reason: NAUSEA AND/OR VOMITING Pantoprazole Sodium (Protonix -) 40 mg PO BID [facility] Last Admin: 08/01/17 21:47 Dose: 40 mg Multivit/Folic Acid/Iron ( Vitamins (Sjr) -) 1 tab PO DAILY [facility] Last Admin: 08/01/17 10:58 Dose: 1 tab Sucralfate (Carafate Oral Suspension -) 1 gm PO QID [facility] Last Admin: 08/01/17 21:47 Dose: 1 gm Thiamine HCl (Vitamin B1 -) 100 mg PO HS [facility] Last Admin: 08/01/17 21:47 Dose: 100 mg Zolpidem Tartrate (Ambien -) 10 mg PO HS PRN PRN Reason: INSOMNIA Last Admin: 08/01/17 21:48 Dose: 10 mg - Objective Vital Signs: Vital Signs Temperature 98.1 F 08/02/17 07:38 Pulse Rate 92 H 08/02/17 07:38 Respiratory Rate 20 08/02/17 07:38 Blood Pressure 112/60 08/02/17 07:38 O2 Sat by Pulse Oximetry (%) 92 L 08/01/17 22:00 Vital Signs Period Temp Pulse Resp BP Sys/Nolan Pulse Ox Last 24 Hr 98.1 F-101 F 92-119 18-20 112-127/60-69 92-92 Intake & Output 08/01/17 08/02/17 08/02/17 23:59 07:59 15:59 Intake Total 450 Output Total 1500 800 Balance -1050 -800 Weight 155 lb 3 oz Intake: IVPB 450 Output: Urine 1500 800 Void 1500 800 Other: Voiding Method Toilet Urinal Weight Measurement Method Built in [facility] Constitutional: Yes: No Distress, Calm, Thin Eyes: Yes: Conjunctiva Clear, EOM Intact HENT: Yes: Atraumatic, Normocephalic Neck: Yes: Supple, Trachea Midline Cardiovascular: Yes: Regular Rate and Rhythm, S1, S2. No: Murmur Respiratory: Yes: Regular, CTA Bilaterally Gastrointestinal: Yes: Normal Bowel Sounds, Soft. No: Tenderness Genitourinary: No: CVA Tenderness - Left, CVA Tenderness - Right Extremities: Yes: Erythema. No: Cool, Cyanosis Edema: Yes Edema: LUE: Trace Peripheral Pulses WNL: Yes Wound/Incision: Yes: Unapproximated. No: Draining, Bleeding Neurological: Yes: Alert, Oriented Psychiatric: Yes: Alert, Oriented Labs: CBC, BMP 08/02/17 06:30 08/02/17 06:30 INR, PTT INR 1.02 (0.82-1.09) 07/26/17 05:55 Fibrinogen 788.0 mg/dL (238-498) H 07/27/17 06:15 Problem List - Problems (1) MRSA (methicillin resistant Staphylococcus aureus) septicemia Assessment/Plan: 21 yo LHD male with Hepatitis C, DM type 1 in DKA with aggressive left forearm cellulitis, thrombophlebitis, and draining abscess at the site of infecting IV drugs. MRSA septicemia, secondary to injecting heroin with contaminated needles. POD#7 s/p I&D and debridement of infected thrombophlebitis left forearm. The erythema and edema in the left arm is resolving. WBC now down to 15.8, all blood cultures are positive. Focus of infection appears to be MRSA pneumonia and effusions PT follow-up for ROM Dressing Left forearm/ antecubital fossa changed Wound Measurement: two linear 2.8 nmG0moX1.5cm healthy soft tissue and veins Dressing instructions: xeroform, 4X4 gauze sponges, tape IV antibiotics per ID Agree with IR for drainage of the chest left arm elevation on a pillow Code(s): A41.02 - SEPSIS DUE TO METHICILLIN RESISTANT STAPHYLOCOCCUS AUREUS (2) Thrombophlebitis arm Code(s): I80.8 - PHLEBITIS AND THROMBOPHLEBITIS OF OTHER SITES (3) Abscess of forearm Code(s): L02.419 - CUTANEOUS ABSCESS OF LIMB, UNSPECIFIED (4) Opioid dependence with withdrawal Code(s): F11.23 - OPIOID DEPENDENCE WITH WITHDRAWAL (5) Diabetes Code(s): E11.9 - TYPE 2 DIABETES MELLITUS WITHOUT COMPLICATIONS Qualifiers: Diabetes mellitus type: type 1 Diabetes mellitus complication status: without complication Qualified Code(s): E10.9 - Type 1 diabetes mellitus without complications
--- NOTE | 2017-08-02 11:07 | PN ---
Progress Note (short form) - Note Progress Note: ID Had fever to 101 Televancin & Ceftaroline as salvage regimen for persitant bacteremia with suppurative complication Selected Entries 08/01/17 08/02/17 21:00 07:38 Temperature 101 F H 98.1 F Pulse Rate 92 H Respiratory 20 Rate Blood Pressure 112/60 Microbiology 08/01/17 10:43 Blood - Peripheral Venous Blood Culture - Preliminary NO GROWTH OBTAINED AFTER 24 HOURS, INCUBATION TO CONTINUE FOR 4 DAYS. 08/01/17 10:30 Blood - Peripheral Venous Blood Culture - Preliminary Pending Organism Laboratory Tests 07/29/17 07/31/17 08/02/17 05:55 14:30 06:30 BUN 15 Creatinine 0.7 Random Glucose 361 H* D Pleural Fluid Source Pleural Pleural WBC 517 Pleural Lymphocytes 4 Pleural Total Protein 2.827 Pleural LDH 463.049 Absolute CD3 Count 1893 Absolute CD4 [place] 1212 T-Lymph CD4/CD8 Ratio 1.92 Assessment MRSA persistant bacteremia Febrile 101 WBC still elevated though coming down a bit today which is encouraging On the other hand now another blood culture bottle gram positive ? MRSA again! He is having a PEG today this am If he has a vegetation I would suggest transferring him to a facility with cardiac capability. The prognosis here is increasingly bad as there is nothing left to offer him beyond what we are doing. We have operated on his infected vein. drained his effusions and today will have PEG. We imaged his back chest and abd already. Bob SANDERSON
[2017-08-02] MEDS ORDERED: LIDOCAINE VISCOUS 2% ORAL/TOP 20 ML UNIT-DOSE CUP ONE (11:14)
[2017-08-02] MEDS: SUCRALFATE 1 GM/10 ML UNIT DOSE CUPS PO SCH ×4 (11:54→22:11)
[2017-08-02] MEDS: FLUCONAZOLE 100 MG TABLET (UD) PO SCH ×2 (11:54→14:38)
[2017-08-02] MEDS: cloNIDine HCL 0.1 MG TABLET PO SCH ×2 (11:54→22:10)
[2017-08-02] MEDS: PANTOPRAZOLE 40 MG TABLET (FP) PO SCH ×2 (11:55→22:10)
[2017-08-02] MEDS: NICOTINE 21 MG/24 HOURS TOPICAL PATCH TD SCH (11:55)
[2017-08-02] MEDS: PRENATAL VITAMINS W/ FOLIC ACID TABLET (FP) PO SCH (11:55)
[2017-08-02] MEDS: BUPRENORPHINE/NALOXONE 8 MG/2 MG FILM PACKET SL SCH (11:56)
--- NOTE | 2017-08-02 12:16 | EKG ---
Test Reason : Blood Pressure : / mmHG Vent. Rate : 110 BPM Atrial Rate : 110 BPM P-R Int : 134 ms QRS Dur : 082 ms QT Int : 332 ms P-R-T Axes : 049 062 062 degrees QTc Int : 449 ms SINUS TACHYCARDIA OTHERWISE NORMAL ECG WHEN COMPARED WITH ECG OF 01-AUG-2017 09:07, NO SIGNIFICANT CHANGE WAS FOUND Confirmed by THIEN HARPER MD ([id number]) on 08/02/2017 12:16:12 PM Referred By: Confirmed By:THIEN HARPER MD
[2017-08-02] MEDS ORDERED: PT OWN MED DRAWER 7, Y5N ONE ×2 (13:06→22:08)
--- NOTE | 2017-08-02 13:08 | PN ---
Physical Exam: SUBJECTIVE: Patient seen and examined OBJECTIVE: Vital Signs Period Temp Pulse Resp BP Sys/Nolan Pulse Ox Last 24 Hr 98.1 F-101 F 92-119 18-20 112-127/60-77 92-92 GENERAL: The patient is awake, alert, and fully oriented, in no acute distress. HEAD: Normal with no signs of trauma. EYES: PERRL, extraocular movements intact, sclera anicteric, conjunctiva clear. No ptosis. ENT: Ears normal, nares patent, oropharynx clear without exudates, moist mucous membranes. NECK: Trachea midline, full range of motion, supple. LUNGS: Breath sounds equal, clear to auscultation bilaterally, no wheezes, no crackles, no accessory muscle use. HEART: Regular rate and rhythm, S1, S2 without murmur, rub or gallop. ABDOMEN: Soft, nontender, nondistended, normoactive bowel sounds, no guarding, no rebound, no hepatosplenomegaly, no masses. EXTREMITIES: 2+ pulses, warm, well-perfused, no edema. NEUROLOGICAL: Cranial nerves II through XII grossly intact. Normal speech, gait not observed. PSYCH: Normal mood, normal affect. SKIN: Warm, dry, normal turgor, no rashes or lesions noted Laboratory Results - last 24 hr 08/01/17 08/01/17 08/02/17 17:29 21:56 06:30 WBC 15.8 H RBC 2.30 L Hgb 7.1 L Hct 22.1 L MCV 95.8 MCH 30.8 MCHC 32.2 RDW 16.9 H Plt Count 563 H D MPV 8.6 D Neutrophils % 78.0 Lymphocytes % 13.4 Monocytes % 6.2 Eosinophils % 0.7 Basophils % 1.7 Sodium Potassium Chloride Carbon Dioxide Anion Gap BUN Creatinine POC Glucometer 117 226 Random Glucose Calcium Magnesium 08/02/17 08/02/17 06:30 06:43 WBC RBC Hgb Hct MCV MCH MCHC RDW Plt Count MPV Neutrophils % Lymphocytes % Monocytes % Eosinophils % Basophils % Sodium 134 L Potassium 4.4 Chloride 99 Carbon Dioxide 28 Anion Gap 7 L BUN 15 Creatinine 0.7 POC Glucometer 392 Random Glucose 361 H* D Calcium 6.8 L* Magnesium 1.5 L Active Medications Generic Name Dose Route Start Last Admin Trade Name Freq PRN Reason Stop Dose Admin Acetaminophen 650 mg 08/01/17 21:58 08/01/17 22:17 Tylenol - PO 650 mg Q6H PRN Administration FEVER Buprenorphine/Naloxone 1 each 08/01/17 10:00 08/02/17 11:56 Suboxone 8mg/2mg Sl Film - SL Not Given DAILY [facility] Clonidine 0.1 mg 07/30/17 22:00 08/02/17 11:54 Catapres - PO Not Given BID [facility] Cyclobenzaprine HCl 10 mg 07/30/17 14:00 08/02/17 07:09 Flexeril - PO Not Given TID [facility] Fluconazole 200 mg 07/31/17 10:00 08/02/17 11:54 Diflucan - PO 08/09/17 13:45 Not Given DAILY [facility] Gabapentin 300 mg 07/31/17 09:13 08/02/17 07:09 Neurontin - PO Not Given TID [facility] Ceftaroline Fosamil 600 mg/ 100 mls @ 200 mls/hr 07/30/17 22:00 08/01/17 21: 48 Dextrose IVPB 200 mls/hr BID [facility] Administration Protocol TELAVANCIN HCL 700 mg/ 292 mls @ 292 mls/hr 08/01/17 13:00 08/01/17 15:42 Dextrose IVPB 292 mls/hr DAILY [facility] Administration Insulin Aspart 1 vial 08/01/17 22:00 08/02/17 12:55 Novolog Vial Sliding Scale - SQ 8 units ACHS [facility] Administration Protocol Insulin Detemir 30 units 07/31/17 22:00 08/01/17 22:20 Levemir Vial SQ Not Given [facility] Nicotine 21 mg 07/31/17 10:00 08/02/17 11:55 Nicoderm Patch - TD Not Given DAILY [facility] Nicotine Polacrilex 2 mg 07/30/17 12:09 Nicorette Gum - BUC Q2H PRN NICOTINE REPLACEMENT RX Ondansetron HCl 8 mg 07/30/17 12:09 Zofran Odt - SL Q6H PRN NAUSEA AND/OR VOMITING Pantoprazole Sodium 40 mg 07/31/17 10:00 08/02/17 11:55 Protonix - PO Not Given BID [facility] Multivit/Folic Acid/Iron 1 tab 07/31/17 10:00 08/02/17 11:55 Vitamins (Sjr) - PO Not Given DAILY [facility] Sucralfate 1 gm 07/30/17 14:00 08/02/17 11:54 Carafate Oral Suspension - PO Not Given QID [facility] Thiamine HCl 100 mg 07/30/17 22:00 08/01/17 21:47 Vitamin B1 - PO 100 mg HS [facility] Administration Zolpidem Tartrate 10 mg 07/31/17 09:15 08/01/17 21:48 Ambien - PO 10 mg HS PRN Administration INSOMNIA ASSESSMENT/PLAN:
--- NOTE | 2017-08-02 13:13 | CONSULT ---
Consultation: REQUESTING PROVIDER: CONSULT REQUEST: We have been asked to medically evaluate this patient for ( specify). HISTORY OF PRESENT ILLNESS: REVIEW OF SYSTEMS: CONSTITUTIONAL: Absent: fever, chills, diaphoresis, generalized weakness, malaise, loss of appetite, weight change HEENT: Absent: rhinorrhea, nasal congestion, throat pain, throat swelling, difficulty swallowing, mouth swelling, ear pain, eye pain, visual changes CARDIOVASCULAR: Absent: chest pain, syncope, palpitations, irregular heart rate, lightheadedness , peripheral edema RESPIRATORY: Absent: cough, shortness of breath, dyspnea with exertion, orthopnea, wheezing, stridor, hemoptysis GASTROINTESTINAL: Absent: abdominal pain, abdominal distension, nausea, vomiting, diarrhea, constipation, melena, hematochezia GENITOURINARY: Absent: dysuria, frequency, urgency, hesitancy, hematuria, flank pain, genital pain MUSCULOSKELETAL: Absent: myalgia, arthralgia, joint swelling, back pain, neck pain SKIN: Absent: rash, itching, pallor HEMATOLOGIC/IMMUNOLOGIC: Absent: easy bleeding, easy bruising, lymphadenopathy, frequent infections ENDOCRINE: Absent: unexplained weight gain, unexplained weight loss, heat intolerance, cold intolerance NEUROLOGIC: Absent: headache, focal weakness or paresthesias, dizziness, unsteady gait, seizure, mental status changes, bladder or bowel incontinence PSYCHIATRIC: Absent: anxiety, depression, suicidal or homicidal ideation, hallucinations. PHYSICAL EXAMINATION Vital Signs - 24 hr 08/01/17 08/01/17 08/01/17 15:54 16:30 21:00 Temperature 98.9 F 98.6 F 101 F H Pulse Rate 112 H 110 H 119 H Respiratory 18 18 20 Rate Blood Pressure 127/69 120/64 126/69 O2 Sat by Pulse 92 L Oximetry (%) 08/01/17 08/02/17 08/02/17 22:00 07:38 10:00 Temperature 98.1 F 98.9 F Pulse Rate 92 H 112 H Respiratory 20 18 Rate Blood Pressure 112/60 120/77 O2 Sat by Pulse 92 L Oximetry (%) GENERAL: Awake, alert, and fully oriented, in no acute distress. HEAD: Normal with no signs of trauma. EYES: Pupils equal, round and reactive to light, extraocular movements intact, sclera anicteric, conjunctiva clear. No lid lag. EARS, NOSE, THROAT: Ears normal, nares patent, oropharynx clear without exudates. Moist mucous membranes. NECK: Normal range of motion, supple without lymphadenopathy, JVD, or masses. LUNGS: Breath sounds equal, clear to auscultation bilaterally. No wheezes, and no crackles. No accessory muscle use. HEART: Regular rate and rhythm, normal S1 and S2 without murmur, rub or gallop. ABDOMEN: Soft, nontender, not distended, normoactive bowel sounds, no guarding, no rebound, no masses. No hepatomegaly or splenomegaly. MUSCULOSKELETAL: Normal range of motion at all joints. No bony deformities or tenderness. No CVA tenderness. UPPER EXTREMITIES: 2+ pulses, warm, well-perfused. No cyanosis. No clubbing. Cap refill <2 seconds. No peripheral edema. LOWER EXTREMITIES: 2+ pulses, warm, well-perfused. No calf tenderness. No peripheral edema. NEUROLOGICAL: Cranial nerves II-XII intact. Normal speech. Normal gait. PSYCHIATRIC: Cooperative. Good eye contact. Appropriate mood and affect. SKIN: Warm, dry, normal turgor, no rashes or lesions noted. Laboratory Results - last 24 hr 08/01/17 08/01/17 08/02/17 17:29 21:56 06:30 WBC 15.8 H RBC 2.30 L Hgb 7.1 L Hct 22.1 L MCV 95.8 MCH 30.8 MCHC 32.2 RDW 16.9 H Plt Count 563 H D MPV 8.6 D Neutrophils % 78.0 Lymphocytes % 13.4 Monocytes % 6.2 Eosinophils % 0.7 Basophils % 1.7 Sodium Potassium Chloride Carbon Dioxide Anion Gap BUN Creatinine POC Glucometer 117 226 Random Glucose Calcium Magnesium 08/02/17 08/02/17 06:30 06:43 WBC RBC Hgb Hct MCV MCH MCHC RDW Plt Count MPV Neutrophils % Lymphocytes % Monocytes % Eosinophils % Basophils % Sodium 134 L Potassium 4.4 Chloride 99 Carbon Dioxide 28 Anion Gap 7 L BUN 15 Creatinine 0.7 POC Glucometer 392 Random Glucose 361 H* D Calcium 6.8 L* Magnesium 1.5 L Active Medications Generic Name Dose Route Start Last Admin Trade Name Freq PRN Reason Stop Dose Admin Acetaminophen 650 mg 08/01/17 21:58 08/01/17 22:17 Tylenol - PO 650 mg Q6H PRN Administration FEVER Buprenorphine/Naloxone 1 each 08/01/17 10:00 08/02/17 11:56 Suboxone 8mg/2mg Sl Film - SL Not Given DAILY [facility] Clonidine 0.1 mg 07/30/17 22:00 08/02/17 11:54 Catapres - PO Not Given BID [facility] Cyclobenzaprine HCl 10 mg 07/30/17 14:00 08/02/17 07:09 Flexeril - PO Not Given TID [facility] Fluconazole 200 mg 07/31/17 10:00 08/02/17 11:54 Diflucan - PO 08/09/17 13:45 Not Given DAILY [facility] Gabapentin 300 mg 07/31/17 09:13 08/02/17 07:09 Neurontin - PO Not Given TID [facility] Ceftaroline Fosamil 600 mg/ 100 mls @ 200 mls/hr 07/30/17 22:00 08/01/17 21: 48 Dextrose IVPB 200 mls/hr BID [facility] Administration Protocol TELAVANCIN HCL 700 mg/ 292 mls @ 292 mls/hr 08/01/17 13:00 08/01/17 15:42 Dextrose IVPB 292 mls/hr DAILY [facility] Administration Insulin Aspart 1 vial 08/01/17 22:00 08/02/17 12:55 Novolog Vial Sliding Scale - SQ 8 units ACHS [facility] Administration Protocol Insulin Detemir 30 units 07/31/17 22:00 08/01/17 22:20 Levemir Vial SQ Not Given [facility] Nicotine 21 mg 07/31/17 10:00 08/02/17 11:55 Nicoderm Patch - TD Not Given DAILY [facility] Nicotine Polacrilex 2 mg 07/30/17 12:09 Nicorette Gum - BUC Q2H PRN NICOTINE REPLACEMENT RX Ondansetron HCl 8 mg 07/30/17 12:09 Zofran Odt - SL Q6H PRN NAUSEA AND/OR VOMITING Pantoprazole Sodium 40 mg 07/31/17 10:00 08/02/17 11:55 Protonix - PO Not Given BID [facility] Multivit/Folic Acid/Iron 1 tab 07/31/17 10:00 08/02/17 11:55 Vitamins (Sjr) - PO Not Given DAILY [facility] Sucralfate 1 gm 07/30/17 14:00 08/02/17 11:54 Carafate Oral Suspension - PO Not Given QID [facility] Thiamine HCl 100 mg 07/30/17 22:00 08/01/17 21:47 Vitamin B1 - PO 100 mg HS [facility] Administration Zolpidem Tartrate 10 mg 07/31/17 09:15 08/01/17 21:48 Ambien - PO 10 mg HS PRN Administration INSOMNIA ASSESSMENT/PLAN: Dispo: We will continue to follow the patient. Thank you for this consultative opportunity.
--- NOTE | 2017-08-02 13:13 | PN ---
[facility] Progress Note (SOAP) Subjective: patient reports comfortable ofn suboxone 8mg daily without cravings and desire to use, no drug dreams. Objective: Vital Signs - 24 hr 08/01/17 08/01/17 08/01/17 15:54 16:30 21:00 Temperature 98.9 F 98.6 F 101 F H Pulse Rate 112 H 110 H 119 H Respiratory 18 18 20 Rate Blood Pressure 127/69 120/64 126/69 O2 Sat by Pulse 92 L Oximetry (%) 08/01/17 08/02/17 08/02/17 22:00 07:38 10:00 Temperature 98.1 F 98.9 F Pulse Rate 92 H 112 H Respiratory 20 18 Rate Blood Pressure 112/60 120/77 O2 Sat by Pulse 92 L Oximetry (%) Laboratory Results - last 24 hr 08/01/17 08/01/17 08/02/17 17:29 21:56 06:30 WBC 15.8 H RBC 2.30 L Hgb 7.1 L Hct 22.1 L MCV 95.8 MCH 30.8 MCHC 32.2 RDW 16.9 H Plt Count 563 H D MPV 8.6 D Neutrophils % 78.0 Lymphocytes % 13.4 Monocytes % 6.2 Eosinophils % 0.7 Basophils % 1.7 Sodium Potassium Chloride Carbon Dioxide Anion Gap BUN Creatinine POC Glucometer 117 226 Random Glucose Calcium Magnesium 08/02/17 08/02/17 06:30 06:43 WBC RBC Hgb Hct MCV MCH MCHC RDW Plt Count MPV Neutrophils % Lymphocytes % Monocytes % Eosinophils % Basophils % Sodium 134 L Potassium 4.4 Chloride 99 Carbon Dioxide 28 Anion Gap 7 L BUN 15 Creatinine 0.7 POC Glucometer 392 Random Glucose 361 H* D Calcium 6.8 L* Magnesium 1.5 L low mg,low alb, anemmic Assessment: 08/02/17 13:12 oud - on mat with suboxone 8nmg daily, corry will follow up at [facility] discharge [facility] will [facility] prescription piror to discharge to pharmacy for 7 days of medication.
--- NOTE | 2017-08-02 13:14 | PN ---
Physical Exam: SUBJECTIVE: Pt was to undergo PEG today for assessment of any valvular emboli/ vegetations however desaturated on 4LNC. Pt at this time also refused intubation that was required for PEG. Pt was transfered back to ICU in the setting of hypoxia and MRSA bactermia sepsis with septic lung emboli. Since his transfer from ICU pt has been changed to Telvance (in replacement of Daptomycin ) and underwent thoracentesis of pleural fluid. OBJECTIVE: Vital Signs Period Temp Pulse Resp BP Sys/Nolan Pulse Ox Last 24 Hr 98.1 F-101 F 92-119 18-20 112-127/60-77 92-92 GENERAL: NAD, awake, alert and orientedx3 HEENT: EOMI, LOUIE, anicteric sclera, R IJ in place without any drainage, dry mucosa LUNGS: Decreased breath sounds at bases L > R, no accessory muscle use. HEART: Tachycardic with regular rhythm, S1, S2 without murmur. ABDOMEN: Soft, NT/ND, normoactive bowel sounds, no guarding, no hepatomegaly, no masses. EXTREMITIES: 2+ DP pulses, warm, well-perfused, no edema. NEUROLOGICAL: Nonfocal exam, strength 5/5, sensation grossly intact PSYCH: Normal mood, normal affect. SKIN: Warm, dry, no rashes or lesions noted Laboratory Results - last 24 hr 08/01/17 08/01/17 08/02/17 17:29 21:56 06:30 WBC 15.8 H RBC 2.30 L Hgb 7.1 L Hct 22.1 L MCV 95.8 MCH 30.8 MCHC 32.2 RDW 16.9 H Plt Count 563 H D MPV 8.6 D Neutrophils % 78.0 Lymphocytes % 13.4 Monocytes % 6.2 Eosinophils % 0.7 Basophils % 1.7 Sodium Potassium Chloride Carbon Dioxide Anion Gap BUN Creatinine POC Glucometer 117 226 Random Glucose Calcium Magnesium 08/02/17 08/02/17 06:30 06:43 WBC RBC Hgb Hct MCV MCH MCHC RDW Plt Count MPV Neutrophils % Lymphocytes % Monocytes % Eosinophils % Basophils % Sodium 134 L Potassium 4.4 Chloride 99 Carbon Dioxide 28 Anion Gap 7 L BUN 15 Creatinine 0.7 POC Glucometer 392 Random Glucose 361 H* D Calcium 6.8 L* Magnesium 1.5 L Active Medications Generic Name Dose Route Start Last Admin Trade Name Freq PRN Reason Stop Dose Admin Acetaminophen 650 mg 08/01/17 21:58 08/01/17 22:17 Tylenol - PO 650 mg Q6H PRN Administration FEVER Buprenorphine/Naloxone 1 each 08/01/17 10:00 08/02/17 11:56 Suboxone 8mg/2mg Sl Film - SL Not Given DAILY [facility] Clonidine 0.1 mg 07/30/17 22:00 08/02/17 11:54 Catapres - PO Not Given BID [facility] Cyclobenzaprine HCl 10 mg 07/30/17 14:00 08/02/17 07:09 Flexeril - PO Not Given TID [facility] Fluconazole 200 mg 07/31/17 10:00 08/02/17 11:54 Diflucan - PO 08/09/17 13:45 Not Given DAILY [facility] Gabapentin 300 mg 07/31/17 09:13 08/02/17 07:09 Neurontin - PO Not Given TID [facility] Ceftaroline Fosamil 600 mg/ 100 mls @ 200 mls/hr 07/30/17 22:00 08/01/17 21: 48 Dextrose IVPB 200 mls/hr BID [facility] Administration Protocol TELAVANCIN HCL 700 mg/ 292 mls @ 292 mls/hr 08/01/17 13:00 08/01/17 15:42 Dextrose IVPB 292 mls/hr DAILY [facility] Administration Insulin Aspart 1 vial 08/01/17 22:00 08/02/17 12:55 Novolog Vial Sliding Scale - SQ 8 units ACHS [facility] Administration Protocol Insulin Detemir 30 units 07/31/17 22:00 08/01/17 22:20 Levemir Vial SQ Not Given [facility] Nicotine 21 mg 07/31/17 10:00 08/02/17 11:55 Nicoderm Patch - TD Not Given DAILY [facility] Nicotine Polacrilex 2 mg 07/30/17 12:09 Nicorette Gum - BUC Q2H PRN NICOTINE REPLACEMENT RX Ondansetron HCl 8 mg 07/30/17 12:09 Zofran Odt - SL Q6H PRN NAUSEA AND/OR VOMITING Pantoprazole Sodium 40 mg 07/31/17 10:00 08/02/17 11:55 Protonix - PO Not Given BID [facility] Multivit/Folic Acid/Iron 1 tab 07/31/17 10:00 08/02/17 11:55 Vitamins (Sjr) - PO Not Given DAILY [facility] Sucralfate 1 gm 07/30/17 14:00 08/02/17 11:54 Carafate Oral Suspension - PO Not Given QID [facility] Thiamine HCl 100 mg 07/30/17 22:00 08/01/17 21:47 Vitamin B1 - PO 100 mg HS [facility] Administration Zolpidem Tartrate 10 mg 07/31/17 09:15 08/01/17 21:48 Ambien - PO 10 mg HS PRN Administration INSOMNIA ASSESSMENT/PLAN: Neuro: Neurologically intact Respiratory: Lung nodules --Noted on imaging; likely septic emboli --Current saturation >90%; however requiring nasal cannula --Rest per ID plan Cardiovascular: Sinus Tachycardia --most likely 2/2 to volume depletion due to NPO status and severe sepsis currently --Asymptomatic currently --Monitor R/O Vegetations: --Pt will need PEG due to possibility of vegetations which would change pt 's clinical plan --At that point would transfer to higher level of care --Pt seems to be more agreeable to intubation solely for the procedure at this point --Will try PEG for tomorrow --NPO at midnight for PEG tomorrow HTN --Continue Catapres 0.1mg PO if needed Renal: CRISTINA --2/2 to sepsis syndrome --RESOLVED --Monitor urine outputs in sepsis syndrome setting ID: Severe sepsis 2/2 to MRSA bacteremia --2/2 abscess formation after heroin injection of L arm --L arm s/p I&D/drainage and fasciotomy of site --Surgery has been following --Continue Televance --Continue Ceftaroline --Continue Diflucan --ID on board --CT Chest showing septic emboli in the lungs --Thoracentesis performed showing exudative pleural effusion --WBC 500's noted in pleural fluid Endocrine: Type 2 DM --DKA resolved --Volatile sugars currently --ISS --BGM --Levermir 24U AM SQ --Endocrine on aboard FEN: Fluids: None currently Electrolyte abnormalities: HypoMg (repleted), Corrected Ca WNL, Mild hypoNa ( monitor) Nutrition: NPO at midnight for PEG tomorrow PPX: DVT - SCDs currently GI - Protonix 40mg IVP qDaily Dispo: Continue ICU care; PEG tomorrow Case discussed with Dr. Attila Nicole, DO - IM PGY-1 Visit type - Emergency Visit Emergency Visit: No - New Patient This patient is new to me today: No - Critical Care Critical Care patient: Yes Total Critical Care Time (in minutes): 35 Critical Care Statement: The care of this patient involved high complexity decision making to prevent further life threatening deterioration of the patient 's condition and/or to evaluate & treat vital organ system(s) failure or risk of failure.
--- NOTE | 2017-08-02 14:00 | PN ---
Progress Note, Physician History of Present Illness: seen and examined today. see I/P for details. - Current Medication List Current Medications: Active Medications Acetaminophen (Tylenol -) 650 mg PO Q6H PRN PRN Reason: FEVER Last Admin: 08/01/17 22:17 Dose: 650 mg Buprenorphine/Naloxone (Suboxone 8mg/2mg Sl Film -) 1 each SL DAILY [facility] Last Admin: 08/02/17 11:56 Dose: Not Given Clonidine (Catapres -) 0.1 mg PO BID [facility] Last Admin: 08/02/17 11:54 Dose: Not Given Cyclobenzaprine HCl (Flexeril -) 10 mg PO TID [facility] Last Admin: 08/02/17 07:09 Dose: Not Given Fluconazole (Diflucan -) 200 mg PO DAILY [facility] Stop: 08/09/17 13:45 Last Admin: 08/02/17 11:54 Dose: Not Given Gabapentin (Neurontin -) 300 mg PO TID [facility] Last Admin: 08/02/17 07:09 Dose: Not Given Ceftaroline Fosamil 600 mg/ (Dextrose) 100 mls @ 200 mls/hr IVPB BID [facility] PRN Reason: Protocol Last Admin: 08/01/17 21:48 Dose: 200 mls/hr TELAVANCIN HCL 700 mg/ (Dextrose) 292 mls @ 292 mls/hr IVPB DAILY [facility] Last Admin: 08/01/17 15:42 Dose: 292 mls/hr Insulin Aspart (Novolog Vial Sliding Scale -) 1 vial SQ ACHS [facility] PRN Reason: Protocol Last Admin: 08/02/17 12:55 Dose: 8 units Insulin Detemir (Levemir Vial) 30 units SQ HS [facility] Last Admin: 08/01/17 22:20 Dose: Not Given Nicotine (Nicoderm Patch -) 21 mg TD DAILY [facility] Last Admin: 08/02/17 11:55 Dose: Not Given Nicotine Polacrilex (Nicorette Gum -) 2 mg BUC Q2H PRN PRN Reason: NICOTINE REPLACEMENT RX Ondansetron HCl (Zofran Odt -) 8 mg SL Q6H PRN PRN Reason: NAUSEA AND/OR VOMITING Pantoprazole Sodium (Protonix -) 40 mg PO BID [facility] Last Admin: 08/02/17 11:55 Dose: Not Given Multivit/Folic Acid/Iron ( Vitamins (Sjr) -) 1 tab PO DAILY [facility] Last Admin: 08/02/17 11:55 Dose: Not Given Sucralfate (Carafate Oral Suspension -) 1 gm PO QID [facility] Last Admin: 08/02/17 11:54 Dose: Not Given Thiamine HCl (Vitamin B1 -) 100 mg PO HS [facility] Last Admin: 08/01/17 21:47 Dose: 100 mg Zolpidem Tartrate (Ambien -) 10 mg PO HS PRN PRN Reason: INSOMNIA Last Admin: 08/01/17 21:48 Dose: 10 mg - Objective Vital Signs: Vital Signs Temperature 98.9 F 08/02/17 10:00 Pulse Rate 104 H 08/02/17 12:00 Respiratory Rate 20 08/02/17 12:00 Blood Pressure 120/76 08/02/17 12:00 O2 Sat by Pulse Oximetry (%) 92 L 08/01/17 22:00 Constitutional: Yes: No Distress Eyes: Yes: EOM Intact, PERRL HENT: Yes: Atraumatic, Normocephalic Neck: Yes: Supple, Trachea Midline Cardiovascular: Yes: Tachycardia, S1, S2. No: Regular Rate and Rhythm, Bradycardia, Pulse Irregular, Bruit, JVD, Gallop, Murmur, Rub, S3, S4, Varicosities Respiratory: Yes: Regular, On Nasal O2, On Venti-Mask, Rhonchi. No: Rales, Wheezes Edema: No Neurological: Yes: Alert, Oriented Psychiatric: Yes: Alert, Oriented Labs: CBC, BMP 08/02/17 06:30 08/02/17 06:30 INR, PTT INR 1.02 (0.82-1.09) 07/26/17 05:55 Fibrinogen 788.0 mg/dL (238-498) H 07/27/17 06:15 - ....Imaging Chest X-ray: Report Reviewed, Image Reviewed EKG: Report Reviewed, Image Reviewed Other: Report Reviewed, Image Reviewed Assessment/Plan IMP: IVDA with persistently + bacteremia and clinical concern for Endocarditis REC: Pt was brought to endoscopy for PEG today. On arrival, SaO2 was 82% on 4L nc. Pt was advised that he would need to be intubated to perform the PEG. Discussion was held with him at length and at several different times today regarding the need for intubation and he is currently refusing. stating he is not ready for that but will agree to it tomorrow. Therefore PEG cannot be performed at this time. He is currently on partial non-rebreather with SaO2 92%. Will reschedule PEG for tomorrow at 11am (only time available with endoscopy) Recc to re-evaluate pt throughout today and tomorrow am for need for intubation. If SaO2 improves into tomorrow am he may no longer require intubation for PEG however more likely he still will I have discussed with him at length the importance of the PEG for diagnosis of possible endocarditis and that it should be done brit. I have recc that he do it today and have discussed the risks vs benefits however he continues to refuse today. Treat with abx as endocarditis for now, ID following. NPO after midnight
[2017-08-02] MEDS: CEFTAROLINE FOSAMIL ACETATE 600 MG in DEXTROSE 5%-WATER - 100 ML IVPB SCH ×2 (14:09→22:30)
[2017-08-02] MEDS: WATER IVPB SCH (14:12)
[2017-08-02] MEDS: DEXTROSE 5% IVPB SCH (14:12)
[2017-08-02] MEDS: TELAVANCIN HCL IVPB SCH (14:12)
--- NOTE | 2017-08-02 14:22 | PN ---
Teaching Attending Note Name of Resident: Camilo Nicole ATTENDING PHYSICIAN STATEMENT I saw and evaluated the patient. I reviewed the resident's note and discussed the case with the resident. I agree with the resident's findings and plan as documented. SUBJECTIVE: Patient seen and examined in the ICU. Refused to be intubated prior to PEG. Requiring increased O2 requirements. CXR: pending. Intake & Output 07/30/17 07/31/17 08/01/17 08/02/17 23:59 23:59 23:59 23:59 Intake Total 5285 076 6032 Output Total 700 2750 2300 800 Balance 700 -1800 -850 -800 Weight 134 lb 160 lb 4 oz 153 lb 12.8 oz 155 lb 3 oz Last Vital Signs Temp Pulse Resp BP Pulse Ox 98.9 F 104 H 20 120/76 92 L 08/02/17 10:00 08/02/17 12:00 08/02/17 12:00 08/02/17 12:00 08/01/17 22:00 Active Medications Acetaminophen (Tylenol -) 650 mg PO Q6H PRN PRN Reason: FEVER Last Admin: 08/01/17 22:17 Dose: 650 mg Buprenorphine/Naloxone (Suboxone 8mg/2mg Sl Film -) 1 each SL DAILY [facility] Last Admin: 08/02/17 11:56 Dose: Not Given Clonidine (Catapres -) 0.1 mg PO BID [facility] Last Admin: 08/02/17 11:54 Dose: Not Given Cyclobenzaprine HCl (Flexeril -) 10 mg PO TID [facility] Last Admin: 08/02/17 07:09 Dose: Not Given Fluconazole (Diflucan -) 200 mg PO DAILY [facility] Stop: 08/09/17 13:45 Last Admin: 08/02/17 11:54 Dose: Not Given Gabapentin (Neurontin -) 300 mg PO TID [facility] Last Admin: 08/02/17 07:09 Dose: Not Given Ceftaroline Fosamil 600 mg/ (Dextrose) 100 mls @ 200 mls/hr IVPB BID [facility] PRN Reason: Protocol Last Admin: 08/02/17 14:09 Dose: 200 mls/hr TELAVANCIN HCL 700 mg/ (Dextrose) 292 mls @ 292 mls/hr IVPB DAILY [facility] Last Admin: 08/02/17 14:12 Dose: 292 mls/hr Insulin Aspart (Novolog Vial Sliding Scale -) 1 vial SQ ACHS [facility] PRN Reason: Protocol Last Admin: 08/02/17 12:55 Dose: 8 units Insulin Detemir (Levemir Vial) 30 units SQ [facility] Last Admin: 08/01/17 22:20 Dose: Not Given Nicotine (Nicoderm Patch -) 21 mg TD DAILY [facility] Last Admin: 08/02/17 11:55 Dose: Not Given Nicotine Polacrilex (Nicorette Gum -) 2 mg BUC Q2H PRN PRN Reason: NICOTINE REPLACEMENT RX Ondansetron HCl (Zofran Odt -) 8 mg SL Q6H PRN PRN Reason: NAUSEA AND/OR VOMITING Pantoprazole Sodium (Protonix -) 40 mg PO BID [facility] Last Admin: 08/02/17 11:55 Dose: Not Given Multivit/Folic Acid/Iron ( Vitamins (Sjr) -) 1 tab PO DAILY [facility] Last Admin: 08/02/17 11:55 Dose: Not Given Sucralfate (Carafate Oral Suspension -) 1 gm PO QID [facility] Last Admin: 08/02/17 11:54 Dose: Not Given Thiamine HCl (Vitamin B1 -) 100 mg PO HS [facility] Last Admin: 08/01/17 21:47 Dose: 100 mg Zolpidem Tartrate (Ambien -) 10 mg PO HS PRN PRN Reason: INSOMNIA Last Admin: 08/01/17 21:48 Dose: 10 mg Gen: awake, alert Heart: tachycardic, regular Lung: decreased breath sounds at the bases Abd: soft, nontender Ext: LUE edema Laboratory Results - last 24 hr 08/01/17 08/01/17 08/02/17 17:29 21:56 06:30 WBC 15.8 H RBC 2.30 L Hgb 7.1 L Hct 22.1 L MCV 95.8 MCH 30.8 MCHC 32.2 RDW 16.9 H Plt Count 563 H D MPV 8.6 D Neutrophils % 78.0 Lymphocytes % 13.4 Monocytes % 6.2 Eosinophils % 0.7 Basophils % 1.7 Sodium Potassium Chloride Carbon Dioxide Anion Gap BUN Creatinine POC Glucometer 117 226 Random Glucose Calcium Magnesium 08/02/17 08/02/17 06:30 06:43 WBC RBC Hgb Hct MCV MCH MCHC RDW Plt Count MPV Neutrophils % Lymphocytes % Monocytes % Eosinophils % Basophils % Sodium 134 L Potassium 4.4 Chloride 99 Carbon Dioxide 28 Anion Gap 7 L BUN 15 Creatinine 0.7 POC Glucometer 392 Random Glucose 361 H* D Calcium 6.8 L* Magnesium 1.5 L IMP: Persistent MRSA Bacteremia/LUE Abscess s/p debridement Lung Nodules likely Septic Emboli Probable Endocarditis Diabetic Ketoacidosis resolved Septic Shock resolving Thrombocytopenia improved Acute Kidney Injury improved Lactic Acidosis resolved +Troponins likely Demand Ischemia IVDU/Polysubstance Abuse Anemia - for PEG tomorrow: May need intubation prior to procedure - ABX per ID - f/u pending cultures until cleared - monitor urine output, creatinine - monitor H/H - protonix - glucose control - DVT prophylaxis - ICU monitoring Dr Aiken Critical care time spent in reviewing chart, evaluating patient and formulating plan - 36 minutes.
--- NOTE | 2017-08-02 15:22 | PN ---
Progress Note (short form) - Note Progress Note: pt seen and examined events noted chart reviewed PE : AOx3, in NAD PERRLA, EOMI, poor dentition left arm is elevated in a sling stockinette Tachycardia, CTA (BL) Soft abdomen 1+ pitting edema, LE in SCD's Last Vital Signs Temp Pulse Resp BP Pulse Ox 98.9 F 104 H 20 120/76 95 08/02/17 10:00 08/02/17 12:00 08/02/17 12:00 08/02/17 12:00 08/02/17 12:48 CBC, BMP 08/02/17 06:30 08/02/17 06:30 Current Medications Generic Name Dose Route Start Last Admin Trade Name Freq PRN Reason Stop Dose Admin Acetaminophen 650 mg 08/01/17 21:58 08/01/17 22:17 Tylenol - PO 650 mg Q6H PRN Administration FEVER Buprenorphine/Naloxone 1 each 08/01/17 10:00 08/02/17 11:56 Suboxone 8mg/2mg Sl Film - SL Not Given DAILY ROBIN Clonidine 0.1 mg 07/30/17 22:00 08/02/17 11:54 Catapres - PO Not Given BID ROBIN Cyclobenzaprine HCl 10 mg 07/30/17 14:00 08/02/17 14:38 Flexeril - PO 10 mg TID ROBIN Administration Fluconazole 200 mg 07/31/17 10:00 08/02/17 14:38 Diflucan - PO 08/09/17 13:45 200 mg DAILY ROBIN Administration Gabapentin 300 mg 07/31/17 09:13 08/02/17 14:37 Neurontin - PO 300 mg TID ROBIN Administration Ceftaroline Fosamil 600 mg/ 100 mls @ 200 mls/hr 07/30/17 22:00 08/02/17 14: 09 Dextrose IVPB 200 mls/hr BID ROBIN Administration Protocol TELAVANCIN HCL 700 mg/ 292 mls @ 292 mls/hr 08/01/17 13:00 08/02/17 14:12 Dextrose IVPB 292 mls/hr DAILY ROBIN Administration Insulin Aspart 1 vial 08/01/17 22:00 08/02/17 12:55 Novolog Vial Sliding Scale - SQ 8 units ACHS ROBIN Administration Protocol Insulin Detemir 30 units 07/31/17 22:00 08/01/17 22:20 Levemir Vial SQ Not Given HS ROBIN Nicotine 21 mg 07/31/17 10:00 08/02/17 11:55 Nicoderm Patch - TD Not Given DAILY [facility] Nicotine Polacrilex 2 mg 07/30/17 12:09 Nicorette Gum - BUC Q2H PRN NICOTINE REPLACEMENT RX Ondansetron HCl 8 mg 07/30/17 12:09 Zofran Odt - SL Q6H PRN NAUSEA AND/OR VOMITING Pantoprazole Sodium 40 mg 07/31/17 10:00 08/02/17 11:55 Protonix - PO Not Given BID [facility] Multivit/Folic Acid/Iron 1 tab 07/31/17 10:00 08/02/17 11:55 Vitamins (Sjr) - PO Not Given DAILY [facility] Sucralfate 1 gm 07/30/17 14:00 08/02/17 11:54 Carafate Oral Suspension - PO Not Given QID [facility] Thiamine HCl 100 mg 07/30/17 22:00 08/01/17 21:47 Vitamin B1 - PO 100 mg HS ROBIN Administration Zolpidem Tartrate 10 mg 07/31/17 09:15 08/01/17 21:48 Ambien - PO 10 mg HS PRN Administration INSOMNIA 21 y/o male with Type 1 DM, multidrug use presented with DKA (now corrected), heroin OD, LUE abscess (s/p I&D), esophageal candidiasis, chronic Hep C and with MRSA bacteremia on broad spectrum antibiotics with ceftaroline and daptomycin -for one unit of PRBC -thrombocytosis: reactive -pt agreed. -rest per ICU/ID
[2017-08-02] MEDS ORDERED: LIDOCAINE HCL 1%, 10 MG/ML (50 mL VIAL) SQ ONE (17:15)
[2017-08-02] MEDS ORDERED: INSULIN (NOVOLOG) ASPART 100 UNITS/ML 10ML VIAL SQ ONE (17:44)
[2017-08-02 22:00] LABS: ANION GAP 7 (8-16); BLOOD UREA NITROGEN 15 mg/dL (7-18); CHLORIDE 98 mmol/L (98-107); CO2 28 mmol/L (21-32); CREATININE 0.9 mg/dL (0.7-1.3); POTASSIUM 4.6 mmol/L (3.5-5.1); SODIUM 133 mmol/L (136-145)
[2017-08-02 22:02] LABS: GLUCOSE,RANDOM 343 mg/dL (74-106)
--- NOTE | 2017-08-02 22:02 | PN ---
Progress Note, Physician History of Present Illness: No new complaints - Current Medication List Current Medications: Active Medications Acetaminophen (Tylenol -) 650 mg PO Q6H PRN PRN Reason: FEVER Last Admin: 08/01/17 22:17 Dose: 650 mg Buprenorphine/Naloxone (Suboxone 8mg/2mg Sl Film -) 1 each SL DAILY [facility] Last Admin: 08/02/17 11:56 Dose: Not Given Clonidine (Catapres -) 0.1 mg PO BID [facility] Last Admin: 08/02/17 11:54 Dose: Not Given Cyclobenzaprine HCl (Flexeril -) 10 mg PO TID [facility] Last Admin: 08/02/17 14:38 Dose: 10 mg Fluconazole (Diflucan -) 200 mg PO DAILY [facility] Stop: 08/09/17 13:45 Last Admin: 08/02/17 14:38 Dose: 200 mg Gabapentin (Neurontin -) 300 mg PO TID [facility] Last Admin: 08/02/17 14:37 Dose: 300 mg Ceftaroline Fosamil 600 mg/ (Dextrose) 100 mls @ 200 mls/hr IVPB BID [facility] PRN Reason: Protocol Last Admin: 08/02/17 14:09 Dose: 200 mls/hr TELAVANCIN HCL 700 mg/ (Dextrose) 292 mls @ 292 mls/hr IVPB DAILY [facility] Last Admin: 08/02/17 14:12 Dose: 292 mls/hr Insulin Aspart (Novolog Vial Sliding Scale -) 1 vial SQ ACHS [facility] PRN Reason: Protocol Last Admin: 08/02/17 17:50 Dose: Not Given Insulin Detemir (Levemir Vial) 30 units SQ HS [facility] Last Admin: 08/01/17 22:20 Dose: Not Given Nicotine (Nicoderm Patch -) 21 mg TD DAILY [facility] Last Admin: 08/02/17 11:55 Dose: Not Given Nicotine Polacrilex (Nicorette Gum -) 2 mg BUC Q2H PRN PRN Reason: NICOTINE REPLACEMENT RX Ondansetron HCl (Zofran Odt -) 8 mg SL Q6H PRN PRN Reason: NAUSEA AND/OR VOMITING Pantoprazole Sodium (Protonix -) 40 mg PO BID [facility] Last Admin: 08/02/17 11:55 Dose: Not Given Multivit/Folic Acid/Iron ( Vitamins (Sjr) -) 1 tab PO DAILY [facility] Last Admin: 08/02/17 11:55 Dose: Not Given Sucralfate (Carafate Oral Suspension -) 1 gm PO QID [facility] Last Admin: 08/02/17 20:25 Dose: Not Given Thiamine HCl (Vitamin B1 -) 100 mg PO HS [facility] Last Admin: 08/01/17 21:47 Dose: 100 mg Zolpidem Tartrate (Ambien -) 10 mg PO HS PRN PRN Reason: INSOMNIA Last Admin: 08/01/17 21:48 Dose: 10 mg - Objective Vital Signs: Vital Signs Temperature 98.0 F 08/02/17 14:00 Pulse Rate 107 H 08/02/17 21:41 Respiratory Rate 26 H 08/02/17 21:41 Blood Pressure 125/96 08/02/17 21:41 O2 Sat by Pulse Oximetry (%) 98 08/02/17 21:39 HENT: Yes: WNL Neck: Yes: WNL, Supple Cardiovascular: Yes: Tachycardia Respiratory: Yes: Diminished Gastrointestinal: Yes: WNL, Normal Bowel Sounds, Soft Extremities: Yes: Other (LUE elevated in a sling) Labs: CBC, BMP 08/02/17 06:30 INR, PTT INR 1.02 (0.82-1.09) 07/26/17 05:55 Fibrinogen 788.0 mg/dL (238-498) H 07/27/17 06:15 Problem List - Problems (1) Sepsis Assessment/Plan: S/P I&D/debridement/fasciotomy Lt forearm MRSA Bacteremia/supprative thrombophlebitis IV telavancin/ceftaroline CT scan abd/chest: Septic emboli/anascra Pt for possible PEG in am Code(s): A41.9 - SEPSIS, UNSPECIFIED ORGANISM (2) Diabetic ketoacidosis Assessment/Plan: Cont levemir Cont sliding scale w/ coverge Code(s): E13.10 - OTH DIABETES MELLITUS WITH KETOACIDOSIS WITHOUT COMA (3) Anemia Assessment/Plan: Pt to be transfused PRBC's Monitor H/H Code(s): D64.9 - ANEMIA, UNSPECIFIED (4) Thrombocytosis Assessment/Plan: Reactive in nature Probably due to sepsis Code(s): D47.3 - ESSENTIAL (HEMORRHAGIC) THROMBOCYTHEMIA (5) Opioid dependence with withdrawal Code(s): F11.23 - OPIOID DEPENDENCE WITH WITHDRAWAL
[2017-08-02 22:03] LABS: CALCIUM 6.7 mg/dL (8.5-10.1)
[2017-08-02] MEDS: THIAMINE HCL 100 MG TABLET (FP) PO SCH (22:09)
[2017-08-02] MEDS: INSULIN DETEMIR 100 UNITS/ML MDV SQ SCH (22:11)
[2017-08-02] MEDS: ZOLPIDEM TARTRATE 5 MG TABLET PO PRN (22:24)
--- NOTE | 2017-08-02 22:53 | PN ---
Progress Note, Physician Chief Complaint: weakness dyspnea History of Present Illness: 21 y/o male with Hx of type I diabetes and insulin non-compliance, multi- substance abuse including heroin injection, Hep C who was admitted with AMS, weakness, diabetic ketoacidosis and a left arm abscess. He ws treated for DKA , unerwent an I&D of the left arm He was spiking fevers and mrsa septicemia.labile blood sugars - Current Medication List Current Medications: Active Medications Acetaminophen (Tylenol -) 650 mg PO Q6H PRN PRN Reason: FEVER Last Admin: 08/01/17 22:17 Dose: 650 mg Buprenorphine/Naloxone (Suboxone 8mg/2mg Sl Film -) 1 each SL DAILY [facility] Last Admin: 08/02/17 11:56 Dose: Not Given Clonidine (Catapres -) 0.1 mg PO BID [facility] Last Admin: 08/02/17 22:10 Dose: 0.1 mg Cyclobenzaprine HCl (Flexeril -) 10 mg PO TID [facility] Last Admin: 08/02/17 22:10 Dose: 10 mg Fluconazole (Diflucan -) 200 mg PO DAILY [facility] Stop: 08/09/17 13:45 Last Admin: 08/02/17 14:38 Dose: 200 mg Gabapentin (Neurontin -) 300 mg PO TID [facility] Last Admin: 08/02/17 22:10 Dose: 300 mg Ceftaroline Fosamil 600 mg/ (Dextrose) 100 mls @ 200 mls/hr IVPB BID [facility] PRN Reason: Protocol Last Admin: 08/02/17 14:09 Dose: 200 mls/hr TELAVANCIN HCL 700 mg/ (Dextrose) 292 mls @ 292 mls/hr IVPB DAILY [facility] Last Admin: 08/02/17 14:12 Dose: 292 mls/hr Insulin Aspart (Novolog Vial Sliding Scale -) 1 vial SQ ACHS [facility] PRN Reason: Protocol Last Admin: 08/02/17 22:11 Dose: 10 units Insulin Detemir (Levemir Vial) 30 units SQ HS [facility] Last Admin: 08/02/17 22:11 Dose: 30 units Nicotine (Nicoderm Patch -) 21 mg TD DAILY [facility] Last Admin: 08/02/17 11:55 Dose: Not Given Nicotine Polacrilex (Nicorette Gum -) 2 mg BUC Q2H PRN PRN Reason: NICOTINE REPLACEMENT RX Ondansetron HCl (Zofran Odt -) 8 mg SL Q6H PRN PRN Reason: NAUSEA AND/OR VOMITING Pantoprazole Sodium (Protonix -) 40 mg PO BID [facility] Last Admin: 08/02/17 22:10 Dose: 40 mg Multivit/Folic Acid/Iron ( Vitamins (Sjr) -) 1 tab PO DAILY [facility] Last Admin: 08/02/17 11:55 Dose: Not Given Sucralfate (Carafate Oral Suspension -) 1 gm PO QID [facility] Last Admin: 08/02/17 22:11 Dose: 1 gm Thiamine HCl (Vitamin B1 -) 100 mg PO HS [facility] Last Admin: 08/02/17 22:09 Dose: 100 mg Zolpidem Tartrate (Ambien -) 10 mg PO HS PRN PRN Reason: INSOMNIA Last Admin: 08/02/17 22:24 Dose: 10 mg - Objective Vital Signs: Vital Signs Temperature 98.0 F 08/02/17 14:00 Pulse Rate 107 H 08/02/17 21:41 Respiratory Rate 26 H 08/02/17 21:41 Blood Pressure 125/96 08/02/17 21:41 O2 Sat by Pulse Oximetry (%) 98 08/02/17 21:39 Constitutional: Yes: Calm Eyes: Yes: EOM Intact HENT: Yes: Normocephalic Neck: Yes: Trachea Midline Cardiovascular: Yes: Regular Rate and Rhythm Respiratory: Yes: Rales, Tachypnea Gastrointestinal: Yes: Normal Bowel Sounds ...Rectal Exam: Yes: Deferred Genitourinary: Yes: WNL Musculoskeletal: Yes: Muscle Weakness Labs: CBC, BMP 08/02/17 06:30 08/02/17 20:35 INR, PTT INR 1.02 (0.82-1.09) 07/26/17 05:55 Fibrinogen 788.0 mg/dL (238-498) H 07/27/17 06:15 Problem List - Problems (1) Abscess Code(s): L02.91 - CUTANEOUS ABSCESS, UNSPECIFIED (2) Abscess of forearm Code(s): L02.419 - CUTANEOUS ABSCESS OF LIMB, UNSPECIFIED (3) DKA, type 1 Code(s): E10.10 - TYPE 1 DIABETES MELLITUS WITH KETOACIDOSIS WITHOUT COMA Qualifiers: Diabetes mellitus complication detail: without coma Qualified Code(s): E10.10 - Type 1 diabetes mellitus with ketoacidosis without coma (4) Diabetic ketoacidosis Code(s): E13.10 - OTH DIABETES MELLITUS WITH KETOACIDOSIS WITHOUT COMA Qualifiers: Diabetes mellitus type: type 1 Diabetes mellitus complication detail: without coma Qualified Code(s): E10.10 - Type 1 diabetes mellitus with ketoacidosis without coma (5) Gram-positive bacteremia Code(s): R78.81 - BACTEREMIA (6) Hypokalemia Code(s): E87.6 - HYPOKALEMIA (7) Sepsis Code(s): A41.9 - SEPSIS, UNSPECIFIED ORGANISM (8) Thrombophlebitis arm Code(s): I80.8 - PHLEBITIS AND THROMBOPHLEBITIS OF OTHER SITES Assessment/Plan Current Active Problems Abscess (Acute) Abscess of forearm (Acute) DKA, type 1 (Acute) Diabetic ketoacidosis (Acute) Esophagitis (Acute) Gram-positive bacteremia (Acute) Hypokalemia (Acute) Infective endocarditis (Acute) MRSA (methicillin resistant Staphylococcus aureus) septicemia (Acute) Pleural effusion (Acute) Sepsis (Acute) Thrombophlebitis arm (Acute) Abnormal Lab Results 07/31/17 08/02/17 08/02/17 06:00 06:30 06:30 WBC 15.8 H RBC 2.30 L Hgb 7.1 L Hct 22.1 L RDW 16.9 H Plt Count 563 H D Sodium 134 L Anion Gap 7 L Random Glucose 361 H* D Calcium 6.8 L* Magnesium 1.5 L Crossmatch See Detail 08/02/17 20:35 WBC RBC Hgb Hct RDW Plt Count Sodium 133 L Anion Gap 7 L Random Glucose 343 H* Calcium 6.7 L* Magnesium Crossmatch Laboratory Results - last 24 hr 07/31/17 08/02/17 08/02/17 06:00 06:30 06:30 WBC 15.8 H RBC 2.30 L Hgb 7.1 L Hct 22.1 L MCV 95.8 MCH 30.8 MCHC 32.2 RDW 16.9 H Plt Count 563 H D MPV 8.6 D Neutrophils % 78.0 Lymphocytes % 13.4 Monocytes % 6.2 Eosinophils % 0.7 Basophils % 1.7 Sodium 134 L Potassium 4.4 Chloride 99 Carbon Dioxide 28 Anion Gap 7 L BUN 15 Creatinine 0.7 POC Glucometer Random Glucose 361 H* D Calcium 6.8 L* Magnesium 1.5 L Blood Type B POSITIVE Antibody Screen Negative Crossmatch See Detail 08/02/17 08/02/17 06:43 20:35 WBC RBC Hgb Hct MCV MCH MCHC RDW Plt Count MPV Neutrophils % Lymphocytes % Monocytes % Eosinophils % Basophils % Sodium 133 L Potassium 4.6 Chloride 98 Carbon Dioxide 28 Anion Gap 7 L BUN 15 Creatinine 0.9 D POC Glucometer 392 Random Glucose 343 H* Calcium 6.7 L* Magnesium Blood Type Antibody Screen Crossmatch Laboratory Tests 08/01/17 08/01/17 08/01/17 12:06 17:29 21:56 POC Glucometer 76 117 226 08/02/17 06:43 POC Glucometer 392 plan: [email or web address] novolog insulin achs levemir dose q am24 units
[2017-08-03] MEDS: GABAPENTIN 300 MG CAPSULE (FP) PO SCH ×3 (06:10→22:00)
[2017-08-03] MEDS: INSULIN SLIDING SCALE (NOVOLOG) 1 VIAL SQ SCH ×4 (06:10→22:04)
[2017-08-03] MEDS: CYCLOBENZAPRINE HCL 10 MG TABLET (FP) PO SCH ×3 (06:10→22:00)
[2017-08-03 06:25] LABS: BASO % 1.3 % (0-2.0); HEMATOCRIT 23.7 % (35.4-49); LYMPH % 15.7 % (8-40); MCHC 33.8 g/dl (32.0-35.9); MEAN CELL VOLUME 91.8 fl (80-96); MEAN PLT VOLUME 8.7 fl (7.5-11.1); MONO % 6.5 % (3.8-10.2); NEUT % 75.5 % (42.8-82.8); PLATELET COUNT 681 K/MM3 (134-434); RBC 2.58 M/mm3 (4.00-5.60); RDW 18.4 % (11.9-15.9); WHITE BLOOD COUNT 14.1 K/mm3 (4.0-10.0)
[2017-08-03 07:00] LABS: CHLORIDE 99 mmol/L (98-107); POTASSIUM 4.1 mmol/L (3.5-5.1); SODIUM 136 mmol/L (136-145)
[2017-08-03] MEDS ORDERED: INSULIN DETEMIR 100 UNITS/ML MDV SQ SCH (07:00)
[2017-08-03 07:10] LABS: ALK PHOS 239 U/L (45-117); ANION GAP 10 (8-16); BILIRUBIN,TOTAL 0.6 mg/dL (0.2-1.0); BLOOD UREA NITROGEN 13 mg/dL (7-18); CALCIUM 7.5 mg/dL (8.5-10.1); CO2 27 mmol/L (21-32); CREATININE 0.6 mg/dL (0.7-1.3); GLUCOSE,RANDOM 95 mg/dL (74-106); MAGNESIUM 1.7 mg/dL (1.8-2.4); PHOSPHOROUS 3.1 mg/dL (2.5-4.9); SGOT/AST 17 U/L (15-37); SGPT/ALT 27 U/L (12-78)
--- NOTE | 2017-08-03 07:23 | PN ---
Progress Note (short form) - Note Progress Note: ID Discussed with cardiology regarding events of yesterday. Essentially desaturated in the process of attempting the PEG. On "salvage regimen" of Televancin and Ceftaroline Alert mild distress Skin pale Lung Diminished BS Cor S1 S2 no murmur Abd Sofst distended ascites Microbiology 07/29/17 05:55 Blood - Picc Line Blood Culture - Final S Aureus 07/29/17 05:55 Blood - Picc Line Blood Culture - Final S Aureus 07/23/17 23:35 Blood - Peripheral Venous Blood Culture - Final S Aureus Streptococcus Acidominimus 07/23/17 23:35 Blood - Peripheral Venous Blood Culture - Final S Aureus Streptococcus Acidominimus 08/01/17 10:30 Blood - Peripheral Venous Blood Culture - Preliminary Pending Organism Selected Entries 08/02/17 08/03/17 20:00 00:00 Temperature 98.1 F Pulse Rate 112 H Respiratory 15 Rate Blood Pressure 128/85 Laboratory Tests 07/30/17 08/02/17 08/03/17 05:40 20:35 05:05 WBC 14.1 H Hgb 8.0 L D Hct 23.7 L Plt Count 681 H D ESR > 140 H BUN Creatinine Creat Clearance w eGFR Random Glucose 343 H* AST ALT Alkaline Phosphatase 08/03/17 05:05 WBC Hgb Hct Plt Count ESR BUN 13 Creatinine 0.6 L D Creat Clearance w eGFR > 60 Random Glucose 95 D AST 17 ALT 27 Alkaline Phosphatase 239 H D Assessment MRSA bacteremia persistant after 11 days salvage antibiotic regimen Appears to have persistant source of infection WBC down slightly but platelets going up. Necrotizing pneumonia with effusions septic pulmonary emboli. If he has a vegetaton on PEG that would prompt transfer to a tertiary care facility. He will require intubation for PEG. This was discussed with cardiology this am Will attempt to see if transfer can be accomplished without doing procedure here though might be a requirement for transfer Critical care time spent today 35 minutes Continue current antibiotics Blood cultures tomorrow repeat Bob SANDERSON
[2017-08-03] MEDS ORDERED: DEXTROSE 5%-NORMAL SALINE 1,000 ML IV SCH (08:00)
--- NOTE | 2017-08-03 08:16 | PN ---
Progress Note, Physician Chief Complaint: remains tachy and hypoxic Persistent + blood cultures Case was reviewed with CCU attending at [facility] re possible transfer to tertiary center. Patient was accepted pending PEG In my judgement, PEG would be safest if patient were intubated first. - Current Medication List Current Medications: Active Medications Acetaminophen (Tylenol -) 650 mg PO Q6H PRN PRN Reason: FEVER Last Admin: 08/01/17 22:17 Dose: 650 mg Buprenorphine/Naloxone (Suboxone 8mg/2mg Sl Film -) 1 each SL DAILY [facility] Last Admin: 08/02/17 11:56 Dose: Not Given Clonidine (Catapres -) 0.1 mg PO BID [facility] Last Admin: 08/02/17 22:10 Dose: 0.1 mg Cyclobenzaprine HCl (Flexeril -) 10 mg PO TID [facility] Last Admin: 08/03/17 06:10 Dose: Not Given Fluconazole (Diflucan -) 200 mg PO DAILY [facility] Stop: 08/09/17 13:45 Last Admin: 08/02/17 14:38 Dose: 200 mg Gabapentin (Neurontin -) 300 mg PO TID [facility] Last Admin: 08/03/17 06:10 Dose: Not Given Ceftaroline Fosamil 600 mg/ (Dextrose) 100 mls @ 200 mls/hr IVPB BID [facility] PRN Reason: Protocol Last Admin: 08/02/17 22:30 Dose: 200 mls/hr TELAVANCIN HCL 700 mg/ (Dextrose) 292 mls @ 292 mls/hr IVPB DAILY [facility] Last Admin: 08/02/17 14:12 Dose: 292 mls/hr Dextrose/Sodium Chloride (D5-Ns -) 1,000 mls @ 83 mls/hr IV ASDIR [facility] Insulin Aspart (Novolog Vial Sliding Scale -) 1 vial SQ ACHS [facility] PRN Reason: Protocol Last Admin: 08/03/17 06:10 Dose: Not Given Insulin Detemir (Levemir Vial) 24 units SQ AM [facility] Nicotine (Nicoderm Patch -) 21 mg TD DAILY [facility] Last Admin: 08/02/17 11:55 Dose: Not Given Nicotine Polacrilex (Nicorette Gum -) 2 mg BUC Q2H PRN PRN Reason: NICOTINE REPLACEMENT RX Ondansetron HCl (Zofran Odt -) 8 mg SL Q6H PRN PRN Reason: NAUSEA AND/OR VOMITING Pantoprazole Sodium (Protonix -) 40 mg PO BID [facility] Last Admin: 08/02/17 22:10 Dose: 40 mg Multivit/Folic Acid/Iron ( Vitamins (Sjr) -) 1 tab PO DAILY [facility] Last Admin: 08/02/17 11:55 Dose: Not Given Sucralfate (Carafate Oral Suspension -) 1 gm PO QID [facility] Last Admin: 08/02/17 22:11 Dose: 1 gm Thiamine HCl (Vitamin B1 -) 100 mg PO HS [facility] Last Admin: 08/02/17 22:09 Dose: 100 mg Zolpidem Tartrate (Ambien -) 10 mg PO HS PRN PRN Reason: INSOMNIA Last Admin: 08/02/17 22:24 Dose: 10 mg - Objective Vital Signs: Vital Signs Temperature 98.8 F 08/03/17 02:00 Pulse Rate 123 H 08/03/17 06:00 Respiratory Rate 21 08/03/17 06:00 Blood Pressure 118/77 08/03/17 06:00 O2 Sat by Pulse Oximetry (%) 98 08/02/17 21:39 Constitutional: Yes: No Distress, Calm Eyes: Yes: Conjunctiva Clear Cardiovascular: Yes: Regular Rate and Rhythm, Tachycardia Respiratory: Yes: Rhonchi Gastrointestinal: Yes: Soft Edema: No Neurological: Yes: Alert Labs: CBC, BMP 08/03/17 05:05 08/03/17 05:05 INR, PTT INR 1.02 (0.82-1.09) 07/26/17 05:55 Fibrinogen 788.0 mg/dL (238-498) H 07/27/17 06:15 Microbiology 08/01/17 10:43 Blood - Peripheral Venous Blood Culture - Preliminary Pending Organism Laboratory Tests 08/03/17 08/03/17 05:05 05:05 WBC 14.1 H Plt Count 681 H D Sodium 136 Potassium 4.1 BUN 13 Creatinine 0.6 L D - ....Imaging EKG: Image Reviewed (Sinus tach) Problem List - Problems (1) Infective endocarditis Code(s): I33.0 - ACUTE AND SUBACUTE INFECTIVE ENDOCARDITIS Qualifiers: Infective endocarditis organism: bacterial (2) Diabetic ketoacidosis Code(s): E13.10 - OTH DIABETES MELLITUS WITH KETOACIDOSIS WITHOUT COMA Qualifiers: Diabetes mellitus type: type 1 Diabetes mellitus complication detail: without coma Qualified Code(s): E10.10 - Type 1 diabetes mellitus with ketoacidosis without coma (3) MRSA (methicillin resistant Staphylococcus aureus) septicemia Code(s): A41.02 - SEPSIS DUE TO METHICILLIN RESISTANT STAPHYLOCOCCUS AUREUS Assessment/Plan IMP: IVDA with persistently + bacteremia and clinical concern for Endocarditis REC: Given level of hypoxia and need for sedation for PEG, safest to electively intubate prior to PEG. Dr. Bower is scheduled to perform PEG at 11am. Recommend Critical Care Team and anesthesia coordinate intubation prior, discussed with RN and patient. Pending PEG, patient will be accepted for transfer to CCU at [facility].
[2017-08-03] MEDS: SUCRALFATE 1 GM/10 ML UNIT DOSE CUPS PO SCH ×4 (10:06→21:59)
[2017-08-03] MEDS: cloNIDine HCL 0.1 MG TABLET PO SCH ×2 (10:06→22:03)
[2017-08-03] MEDS: FLUCONAZOLE 100 MG TABLET (UD) PO SCH (10:06)
[2017-08-03] MEDS: PANTOPRAZOLE 40 MG TABLET (FP) PO SCH ×2 (10:07→21:59)
[2017-08-03] MEDS: PRENATAL VITAMINS W/ FOLIC ACID TABLET (FP) PO SCH (10:07)
[2017-08-03] MEDS: BUPRENORPHINE/NALOXONE 8 MG/2 MG FILM PACKET SL SCH (10:08)
[2017-08-03] MEDS: NICOTINE 21 MG/24 HOURS TOPICAL PATCH TD SCH (10:09)
[2017-08-03] MEDS: DEXTROSE 5% IVPB SCH (10:15)
[2017-08-03] MEDS: WATER IVPB SCH (10:15)
[2017-08-03] MEDS: TELAVANCIN HCL IVPB SCH (10:15)
[2017-08-03] MEDS: CEFTAROLINE FOSAMIL ACETATE 600 MG in DEXTROSE 5%-WATER - 100 ML IVPB SCH ×3 (10:21→22:01)
[2017-08-03] MEDS ORDERED: MAGNESIUM SULF 50% (8.12 MEQ/2 ML-1 GM VIAL) IVPB ONE (11:19)
[2017-08-03] MEDS ORDERED: MAGNESIUM 1GM/D5W - 1 GM/100 ML IVPB IVPB ONE (11:30)
[2017-08-03] MEDS ORDERED: KETAMINE HCL 500 MG/10 ML VIAL ONE (11:33)
[2017-08-03] MEDS ORDERED: MIDAZOLAM HCL 5 MG/1 ML Single Dose Vial ONE (11:33)
[2017-08-03 11:42] LABS: ARTERIAL BLD GAS O2 SATURATION 91.2 % (90-98.9); ARTERIAL BLOOD GAS BASE EXCESS 4.9 meq/l (-2-2); ARTERIAL BLOOD GAS PCO2 39.7 mmHg (35-45); ARTERIAL BLOOD GAS pH 7.47 (7.35-7.45)
[2017-08-03 11:44] LABS: ALLENS TEST POSITIVE
[2017-08-03] MEDS ORDERED: LIDOCAINE VISCOUS 2% ORAL/TOP 20 ML UNIT-DOSE CUP ONE (11:46)
--- NOTE | 2017-08-03 11:55 | PN ---
Physical Exam: SUBJECTIVE: 24hr events: No acute events overnight. Pt amenable to PEG and intubation today. OBJECTIVE: Vital Signs Period Temp Pulse Resp BP Sys/Nolan Pulse Ox Last 24 Hr 97.5 F-99.2 F 95-123 15-28 107-130/70-96 94-98 GENERAL: NAD, awake, alert and orientedx3 HEENT: EOMI, LOUIE, anicteric sclera, R IJ in place without any drainage, dry mucosa LUNGS: Decreased breath sounds at bases L > R, no accessory muscle use. HEART: Tachycardic with regular rhythm, S1, S2 without murmur. ABDOMEN: Soft, NT/ND, normoactive bowel sounds, no guarding, no hepatomegaly, no masses. EXTREMITIES: 2+ DP pulses, warm, well-perfused, no edema. NEUROLOGICAL: Nonfocal exam, strength 5/5, sensation grossly PSYCH: Normal mood, normal affect. SKIN: Warm, dry, no rashes or lesions noted Laboratory Results - last 24 hr 08/03/17 05:05 WBC 14.1 H RBC 2.58 L Hgb 8.0 L D Hct 23.7 L MCV 91.8 MCH 31.0 MCHC 33.8 RDW 18.4 H Plt Count 681 H D MPV 8.7 Neutrophils % 75.5 Lymphocytes % 15.7 Monocytes % 6.5 Eosinophils % 1.0 Basophils % 1.3 Puncture Site ABG pH ABG pCO2 at Pt Temp ABG pO2 at Pt Temp ABG HCO3 ABG O2 Sat (Measured) ABG O2 Content ABG Base Excess Markus Test Oxygen Flow Rate Mechanical Rate PEEP Sodium Potassium Chloride Carbon Dioxide Anion Gap BUN Creatinine Creat Clearance w eGFR POC Glucometer Random Glucose Calcium Phosphorus Magnesium Total Bilirubin AST ALT Alkaline Phosphatase Total Protein Albumin Blood Type Antibody Screen Crossmatch 08/03/17 05:05 WBC RBC Hgb Hct MCV MCH MCHC RDW Plt Count MPV Neutrophils % Lymphocytes % Monocytes % Eosinophils % Basophils % Puncture Site ABG pH ABG pCO2 at Pt Temp ABG pO2 at Pt Temp ABG HCO3 ABG O2 Sat (Measured) ABG O2 Content ABG Base Excess Markus Test Oxygen Flow Rate Mechanical Rate PEEP Sodium 136 Potassium 4.1 Chloride 99 Carbon Dioxide 27 Anion Gap 10 BUN 13 Creatinine 0.6 L D Creat Clearance w eGFR > 60 POC Glucometer Random Glucose 95 D Calcium 7.5 L Phosphorus 3.1 D Magnesium 1.7 L Total Bilirubin 0.6 AST 17 ALT 27 Alkaline Phosphatase 239 H D Total Protein 6.0 L Albumin 1.0 L Blood Type Antibody Screen Crossmatch Active Medications Generic Name Dose Route Start Last Admin Trade Name Freq PRN Reason Stop Dose Admin Acetaminophen 650 mg 08/01/17 21:58 08/01/17 22:17 Tylenol - PO 650 mg Q6H PRN Administration FEVER Buprenorphine/Naloxone 1 each 08/01/17 10:00 08/03/17 10:08 Suboxone 8mg/2mg Sl Film - SL Not Given DAILY [facility] Clonidine 0.1 mg 07/30/17 22:00 08/03/17 10:06 Catapres - PO Not Given BID [facility] Cyclobenzaprine HCl 10 mg 07/30/17 14:00 08/03/17 06:10 Flexeril - PO Not Given TID [facility] Fluconazole 200 mg 07/31/17 10:00 08/03/17 10:06 Diflucan - PO 08/09/17 13:45 Not Given DAILY [facility] Gabapentin 300 mg 07/31/17 09:13 08/03/17 06:10 Neurontin - PO Not Given TID [facility] Ceftaroline Fosamil 600 mg/ 100 mls @ 200 mls/hr 07/30/17 22:00 08/03/17 10: 21 Dextrose IVPB 200 mls/hr BID [facility] Administration Protocol TELAVANCIN HCL 700 mg/ 292 mls @ 292 mls/hr 08/01/17 13:00 08/03/17 10:15 Dextrose IVPB 292 mls/hr DAILY ROBIN Administration Dextrose/Sodium Chloride 1,000 mls @ 83 mls/hr 08/03/17 08:00 08/03/17 08:29 D5-Ns - IV 83 mls/hr ASDIR [facility] Administration Magnesium Sulfate/Dextrose 1 gm in 100 mls @ 100 mls/hr 08/03/17 11:30 Magnesium 1gm/D5w - IVPB 08/03/17 12:29 ONCE ONE Insulin Aspart 1 vial 08/01/17 22:00 08/03/17 06:10 Novolog Vial Sliding Scale - SQ Not Given ACHS [facility] Protocol Insulin Detemir 24 units 08/03/17 07:00 Levemir Vial SQ AM [facility] Nicotine 21 mg 07/31/17 10:00 08/03/17 10:09 Nicoderm Patch - TD 21 mg DAILY ROBIN Administration Nicotine Polacrilex 2 mg 07/30/17 12:09 Nicorette Gum - BUC Q2H PRN NICOTINE REPLACEMENT RX Ondansetron HCl 8 mg 07/30/17 12:09 Zofran Odt - SL Q6H PRN NAUSEA AND/OR VOMITING Pantoprazole Sodium 40 mg 07/31/17 10:00 08/03/17 10:07 Protonix - PO Not Given BID [facility] Multivit/Folic Acid/Iron 1 tab 07/31/17 10:00 08/03/17 10:07 Vitamins (Sjr) - PO Not Given DAILY [facility] Sucralfate 1 gm 07/30/17 14:00 08/03/17 10:06 Carafate Oral Suspension - PO Not Given QID ROBIN Thiamine HCl 100 mg 07/30/17 22:00 08/02/17 22:09 Vitamin B1 - PO 100 mg HS ROBIN Administration Zolpidem Tartrate 10 mg 07/31/17 09:15 08/02/17 22:24 Ambien - PO 10 mg HS PRN Administration INSOMNIA ASSESSMENT/PLAN: Neuro: Neurologically Respiratory: Lung nodules --Noted on imaging; likely septic emboli --Current saturation >90%; however requiring nasal cannula --Rest per ID Cardiovascular: Sinus Tachycardia --most likely 2/2 to volume depletion due to NPO status and severe sepsis currently --Asymptomatic currently --Monitor HTN --Continue Catapres 0.1mg PO if needed Probable Endorcarditis --PEG to be done today --No clinical symptoms Renal: CRISTINA --2/2 to sepsis syndrome --RESOLVED --Monitor urine outputs in sepsis syndrome setting ID: Severe sepsis 2/2 to MRSA bacteremia --2/2 abscess formation after heroin injection of L arm --L arm s/p I&D/drainage and fasciotomy of site --Surgery has been following --Continue Televance --Continue Ceftaroline --Continue Diflucan --ID on board --CT Chest showing septic emboli in the lungs --Thoracentesis performed showing transudative pleural effusion --WBC 500's noted in pleural fluid --Pt to receive PEG today to r/o any vegetations seeding on valves; will f /u results Endocrine: Type 2 DM --DKA resolved --Volatile sugars currently --ISS --BGM --Levermir 24U AM SQ --Endocrine on aboard FEN: Fluids: D5W@83cc/hr while pt is NPO; sugars low this morning Electrolyte abnormalities: HypoMg (replete 1gm) Nutrition: NPO for PEG, can restart diabetic diet after procedure PPX: DVT - SCDs currently GI - Protonix 40mg IVP qDaily Dispo: Continue ICU care; PEG today (if vegetations should transfer to higher level of care) Case discussed with Dr. Attila Nicole, DO - IM PGY-1 Visit type - Emergency Visit Emergency Visit: No - New Patient This patient is new to me today: No - Critical Care Critical Care patient: Yes Total Critical Care Time (in minutes): 36 Critical Care Statement: The care of this patient involved high complexity decision making to prevent further life threatening deterioration of the patient 's condition and/or to evaluate & treat vital organ system(s) failure or risk of failure.
[2017-08-03] MEDS ORDERED: LIDOCAINE VISCOUS 2% ORAL/TOP 20 ML UNIT-DOSE CUP MM ONE (12:00)
--- NOTE | 2017-08-03 12:37 | PN ---
Teaching Attending Note Name of Resident: Camilo Nicole ATTENDING PHYSICIAN STATEMENT I saw and evaluated the patient. I reviewed the resident's note and discussed the case with the resident. I agree with the resident's findings and plan as documented. SUBJECTIVE: Patient seen and examined in the ICU. Remains mildly tachypenic on 50% VM O2. Reports breathing feels OK. Intake & Output 07/31/17 08/01/17 08/02/17 08/03/17 23:59 23:59 23:59 23:59 Intake Total 950 1450 1150 533 Output Total 2750 2300 4500 1225 Balance -1800 -850 -3350 -692 Weight 160 lb 4 oz 153 lb 12.8 oz 155 lb 3 oz 156 lb 3 oz Last Vital Signs Temp Pulse Resp BP Pulse Ox 97.5 F L 95 H 26 H 125/85 94 L 08/03/17 10:00 08/03/17 10:00 08/03/17 10:00 08/03/17 10:00 08/03/17 09:25 Active Medications Acetaminophen (Tylenol -) 650 mg PO Q6H PRN PRN Reason: FEVER Last Admin: 08/01/17 22:17 Dose: 650 mg Buprenorphine/Naloxone (Suboxone 8mg/2mg Sl Film -) 1 each SL DAILY [facility] Last Admin: 08/03/17 10:08 Dose: Not Given Clonidine (Catapres -) 0.1 mg PO BID [facility] Last Admin: 08/03/17 10:06 Dose: Not Given Cyclobenzaprine HCl (Flexeril -) 10 mg PO TID [facility] Last Admin: 08/03/17 06:10 Dose: Not Given Fluconazole (Diflucan -) 200 mg PO DAILY [facility] Stop: 08/09/17 13:45 Last Admin: 08/03/17 10:06 Dose: Not Given Gabapentin (Neurontin -) 300 mg PO TID [facility] Last Admin: 08/03/17 06:10 Dose: Not Given Ceftaroline Fosamil 600 mg/ (Dextrose) 100 mls @ 200 mls/hr IVPB BID [facility] PRN Reason: Protocol Last Admin: 08/03/17 10:21 Dose: 200 mls/hr TELAVANCIN HCL 700 mg/ (Dextrose) 292 mls @ 292 mls/hr IVPB DAILY [facility] Last Admin: 08/03/17 10:15 Dose: 292 mls/hr Dextrose/Sodium Chloride (D5-Ns -) 1,000 mls @ 83 mls/hr IV ASDIR [facility] Last Admin: 08/03/17 08:29 Dose: 83 mls/hr Insulin Aspart (Novolog Vial Sliding Scale -) 1 vial SQ ACHS [facility] PRN Reason: Protocol Last Admin: 08/03/17 06:10 Dose: Not Given Insulin Detemir (Levemir Vial) 24 units SQ AM [facility] Nicotine (Nicoderm Patch -) 21 mg TD DAILY [facility] Last Admin: 08/03/17 10:09 Dose: 21 mg Nicotine Polacrilex (Nicorette Gum -) 2 mg BUC Q2H PRN PRN Reason: NICOTINE REPLACEMENT RX Ondansetron HCl (Zofran Odt -) 8 mg SL Q6H PRN PRN Reason: NAUSEA AND/OR VOMITING Pantoprazole Sodium (Protonix -) 40 mg PO BID [facility] Last Admin: 08/03/17 10:07 Dose: Not Given Multivit/Folic Acid/Iron ( Vitamins (Sjr) -) 1 tab PO DAILY [facility] Last Admin: 08/03/17 10:07 Dose: Not Given Sucralfate (Carafate Oral Suspension -) 1 gm PO QID [facility] Last Admin: 08/03/17 10:06 Dose: Not Given Thiamine HCl (Vitamin B1 -) 100 mg PO HS [facility] Last Admin: 08/02/17 22:09 Dose: 100 mg Zolpidem Tartrate (Ambien -) 10 mg PO HS PRN PRN Reason: INSOMNIA Last Admin: 08/02/17 22:24 Dose: 10 mg Gen: awake, alert Heart: tachycardic, regular Lung: decreased breath sounds at the bases Abd: soft, nontender Ext: LUE edema IMP: Persistent MRSA Bacteremia/LUE Abscess s/p debridement Lung Nodules likely Septic Emboli Probable Endocarditis Diabetic Ketoacidosis resolved Septic Shock resolving Thrombocytopenia improved Acute Kidney Injury improved Lactic Acidosis resolved +Troponins likely Demand Ischemia IVDU/Polysubstance Abuse Anemia - for PEG today - ABX per ID - f/u pending cultures until cleared - monitor urine output, creatinine - monitor H/H - protonix - glucose control - DVT prophylaxis - ICU monitoring Dr Aiken Critical care time spent in reviewing chart, evaluating patient and formulating plan - 36 minutes
--- NOTE | 2017-08-03 12:45 | PN ---
Progress Note (short form) - Note Progress Note: PEG was performed today with anesthesia. Pt tolerated procedure well. There was no complications. Did not require intubation. SaO2 maintained above 90% throughout the procedure. Final report to follow. There is no intracardiac vegetation or abscess visualized. No intracardiac masses seen. All valves were well visualized. Mild mitral regurgitation. Mild tricuspid regurgitation. Incidentally color flow doppler demonstrates evidence of a small patent foramen ovale with left to right flow. Impression: No echocardiographic evidence of endocarditis. Keep NPO for 2 hours post procedure then check gag reflex. If gag reflex present can resume previous diet.
[2017-08-03] MEDS ORDERED: PT OWN MED DRAWER 7, Y5N ONE ×2 (14:08→17:32)
[2017-08-03] MEDS ORDERED: INSULIN DETEMIR 100 UNITS/ML MDV SQ ONE (15:00)
--- NOTE | 2017-08-03 16:10 | PN ---
Progress Note, Physician Chief Complaint: IVDA with left arm cellulitis and infected thrombophlebitis History of Present Illness: 21yo LHD male PMH type 1 DM, current IV heroin user, Hepatitis C presented with altered mental status and generalized weakness. Complains of some pain in the left arm. CT scan of the chest reveals a presumed spetic pneumonia. IR completed a second thoracentesis. he was transferred to ICU for possible PEG. He has no other complaints. - Current Medication List Current Medications: Active Medications Acetaminophen (Tylenol -) 650 mg PO Q6H PRN PRN Reason: FEVER Last Admin: 08/01/17 22:17 Dose: 650 mg Buprenorphine/Naloxone (Suboxone 8mg/2mg Sl Film -) 1 each SL DAILY [facility] Last Admin: 08/03/17 10:08 Dose: Not Given Clonidine (Catapres -) 0.1 mg PO BID [facility] Last Admin: 08/03/17 10:06 Dose: Not Given Cyclobenzaprine HCl (Flexeril -) 10 mg PO TID [facility] Last Admin: 08/03/17 14:13 Dose: 10 mg Fluconazole (Diflucan -) 200 mg PO DAILY [facility] Stop: 08/09/17 13:45 Last Admin: 08/03/17 10:06 Dose: Not Given Gabapentin (Neurontin -) 300 mg PO TID [facility] Last Admin: 08/03/17 14:13 Dose: 300 mg TELAVANCIN HCL 700 mg/ (Dextrose) 292 mls @ 292 mls/hr IVPB DAILY [facility] Last Admin: 08/03/17 10:15 Dose: 292 mls/hr Ceftaroline Fosamil 600 mg/ (Dextrose) 100 mls @ 200 mls/hr IVPB TID [facility] PRN Reason: Protocol Last Admin: 08/03/17 15:38 Dose: 200 mls/hr Insulin Aspart (Novolog Vial Sliding Scale -) 1 vial SQ ACHS [facility] PRN Reason: Protocol Last Admin: 08/03/17 11:10 Dose: Not Given Insulin Detemir (Levemir Vial) 24 units SQ AM [facility] Last Admin: 08/03/17 14:43 Dose: Not Given Nicotine (Nicoderm Patch -) 21 mg TD DAILY [facility] Last Admin: 08/03/17 10:09 Dose: 21 mg Nicotine Polacrilex (Nicorette Gum -) 2 mg BUC Q2H PRN PRN Reason: NICOTINE REPLACEMENT RX Ondansetron HCl (Zofran Odt -) 8 mg SL Q6H PRN PRN Reason: NAUSEA AND/OR VOMITING Pantoprazole Sodium (Protonix -) 40 mg PO BID [facility] Last Admin: 08/03/17 10:07 Dose: Not Given Multivit/Folic Acid/Iron ( Vitamins (Sjr) -) 1 tab PO DAILY [facility] Last Admin: 08/03/17 10:07 Dose: Not Given Sucralfate (Carafate Oral Suspension -) 1 gm PO QID [facility] Last Admin: 08/03/17 14:14 Dose: 1 gm Thiamine HCl (Vitamin B1 -) 100 mg PO HS [facility] Last Admin: 08/02/17 22:09 Dose: 100 mg Zolpidem Tartrate (Ambien -) 10 mg PO HS PRN PRN Reason: INSOMNIA Last Admin: 08/02/17 22:24 Dose: 10 mg - Objective Vital Signs: Vital Signs Temperature 97.8 F 08/03/17 15:00 Pulse Rate 101 H 08/03/17 15:00 Respiratory Rate 18 08/03/17 15:00 Blood Pressure 112/81 08/03/17 15:00 O2 Sat by Pulse Oximetry (%) 95 08/03/17 12:40 Vital Signs Period Temp Pulse Resp BP Sys/Nolan Pulse Ox Last 24 Hr 97.4 F-98.8 F 87-123 15-28 111-130/75-96 94-98 Intake & Output 08/03/17 08/03/17 08/03/17 07:59 15:59 23:59 Intake Total 100 1805 Output Total 400 825 Balance -300 980 Weight 156 lb 3 oz Intake: IV 881 D5-Ns - 1,000 ml @ 83 mls 681 /hr IV ASDIR [facility] Rx#: [id number] IVPB 100 350 Oral 574 Output: Urine 400 825 Void 400 825 Other: Voiding Method Urinal Weight Measurement Method Built in [facility] Constitutional: Yes: Well Nourished, No Distress, Calm Eyes: Yes: Conjunctiva Clear, EOM Intact HENT: Yes: Atraumatic, Normocephalic Neck: Yes: Supple, Trachea Midline Cardiovascular: Yes: Regular Rate and Rhythm, S1, S2. No: Murmur Respiratory: Yes: Regular, CTA Bilaterally Gastrointestinal: Yes: Normal Bowel Sounds, Soft. No: Tenderness ...Rectal Exam: Yes: Deferred Genitourinary: No: CVA Tenderness - Left, CVA Tenderness - Right Musculoskeletal: No: Muscle Pain, Muscle Weakness Extremities: No: Cool, Cyanosis Edema: Yes Edema: LUE: Trace Wound/Incision: Yes: Unapproximated. No: Reddened, Bleeding Neurological: Yes: Alert, Oriented Psychiatric: Yes: Alert, Oriented Labs: CBC, BMP 08/03/17 05:05 08/03/17 05:05 INR, PTT INR 1.02 (0.82-1.09) 07/26/17 05:55 Fibrinogen 788.0 mg/dL (238-498) H 07/27/17 06:15 Problem List - Problems (1) MRSA (methicillin resistant Staphylococcus aureus) septicemia Assessment/Plan: 21 yo LHD male with Hepatitis C, DM type 1 in DKA with aggressive left forearm cellulitis, thrombophlebitis, and draining abscess at the site of infecting IV drugs. MRSA septicemia, secondary to injecting heroin with contaminated needles. POD#8 s/p I&D and debridement of infected thrombophlebitis left forearm. The erythema and edema in the left arm is resolving. Focus of infection appears to be MRSA pneumonia and effusions PT follow-up for ROM Dressing Left forearm/ antecubital fossa changed Wound Measurement: two linear 2.8 [id number] healthy soft tissue and veins Dressing instructions: xeroform, 4X4 gauze sponges, tape IV antibiotics per ID left arm elevation on a pillow Code(s): A41.02 - SEPSIS DUE TO METHICILLIN RESISTANT STAPHYLOCOCCUS AUREUS (2) Thrombophlebitis arm Code(s): I80.8 - PHLEBITIS AND THROMBOPHLEBITIS OF OTHER SITES (3) Abscess of forearm Code(s): L02.419 - CUTANEOUS ABSCESS OF LIMB, UNSPECIFIED (4) Opioid dependence with withdrawal Code(s): F11.23 - OPIOID DEPENDENCE WITH WITHDRAWAL (5) Diabetes Code(s): E11.9 - TYPE 2 DIABETES MELLITUS WITHOUT COMPLICATIONS Qualifiers: Diabetes mellitus type: type 1 Diabetes mellitus complication status: without complication Qualified Code(s): E10.10 - Type 1 diabetes mellitus with ketoacidosis without coma
--- NOTE | 2017-08-03 16:55 | PATH ---
Cytology Non-Gynecological Report Patient Name: KAT RAE Med. Rec. #: [id number] /Age/Gender: 1995 (Age: 21) / M Account: [id number] Location: ICU [employer] Taken: 07/31/2017 Received: 08/01/2017 Reported: 08/03/2017 Physicians: Gloria Colorado M.D. Specimen(s) Received A: RIGHT PLEURAL FLUID B: RIGHT PLEURAL FLUID Clinical History Pleural effusion and lung consolidation Final Diagnosis A & B. PLEURAL FLUID, RIGHT, THORACENTESIS: SATISFACTORY FOR EVALUATION NO MALIGNANT CELLS IDENTIFIED. MESOTHELIAL CELLS AND MANY NEUTROPHILS PRESENT. Electronically Signed Aga Jackson M.D. Gross Description A. Approximately 50 cc of cloudy yellow fluid received fixed in 50% alcohol. Two cytofunnels and one cellblock prepared. B. Approximately 1000 cc of yellow fluid received fresh Two cytofunnels and one cellblock prepared.
--- NOTE | 2017-08-03 20:01 | PN ---
Progress Note, Physician Chief Complaint: sp dariana awake comfortable History of Present Illness: dm,iddm,sp dka,sp dariana,mrsa sepsis, - Current Medication List Current Medications: Active Medications Acetaminophen (Tylenol -) 650 mg PO Q6H PRN PRN Reason: FEVER Last Admin: 08/01/17 22:17 Dose: 650 mg Buprenorphine/Naloxone (Suboxone 8mg/2mg Sl Film -) 1 each SL DAILY [facility] Last Admin: 08/03/17 10:08 Dose: Not Given Clonidine (Catapres -) 0.1 mg PO BID [facility] Last Admin: 08/03/17 10:06 Dose: Not Given Cyclobenzaprine HCl (Flexeril -) 10 mg PO TID [facility] Last Admin: 08/03/17 14:13 Dose: 10 mg Fluconazole (Diflucan -) 200 mg PO DAILY [facility] Stop: 08/09/17 13:45 Last Admin: 08/03/17 10:06 Dose: Not Given Gabapentin (Neurontin -) 300 mg PO TID [facility] Last Admin: 08/03/17 14:13 Dose: 300 mg TELAVANCIN HCL 700 mg/ (Dextrose) 292 mls @ 292 mls/hr IVPB DAILY [facility] Last Admin: 08/03/17 10:15 Dose: 292 mls/hr Ceftaroline Fosamil 600 mg/ (Dextrose) 100 mls @ 200 mls/hr IVPB TID [facility] PRN Reason: Protocol Last Admin: 08/03/17 15:38 Dose: 200 mls/hr Insulin Aspart (Novolog Vial Sliding Scale -) 1 vial SQ ACHS [facility] PRN Reason: Protocol Last Admin: 08/03/17 16:36 Dose: Not Given Insulin Detemir (Levemir Vial) 24 units SQ AM [facility] Last Admin: 08/03/17 14:43 Dose: Not Given Nicotine (Nicoderm Patch -) 21 mg TD DAILY [facility] Last Admin: 08/03/17 10:09 Dose: 21 mg Nicotine Polacrilex (Nicorette Gum -) 2 mg BUC Q2H PRN PRN Reason: NICOTINE REPLACEMENT RX Ondansetron HCl (Zofran Odt -) 8 mg SL Q6H PRN PRN Reason: NAUSEA AND/OR VOMITING Pantoprazole Sodium (Protonix -) 40 mg PO BID [facility] Last Admin: 08/03/17 10:07 Dose: Not Given Multivit/Folic Acid/Iron ( Vitamins (Sjr) -) 1 tab PO DAILY [facility] Last Admin: 08/03/17 10:07 Dose: Not Given Sucralfate (Carafate Oral Suspension -) 1 gm PO QID [facility] Last Admin: 08/03/17 17:33 Dose: 1 gm Thiamine HCl (Vitamin B1 -) 100 mg PO HS [facility] Last Admin: 08/02/17 22:09 Dose: 100 mg Zolpidem Tartrate (Ambien -) 10 mg PO HS PRN PRN Reason: INSOMNIA Last Admin: 08/02/17 22:24 Dose: 10 mg - Objective Vital Signs: Vital Signs Temperature 97.8 F 08/03/17 15:00 Pulse Rate 102 H 08/03/17 16:00 Respiratory Rate 19 08/03/17 16:00 Blood Pressure 125/91 08/03/17 16:00 O2 Sat by Pulse Oximetry (%) 94 L 08/03/17 16:40 Constitutional: Yes: Calm Eyes: Yes: EOM Intact HENT: Yes: Normocephalic Neck: Yes: Trachea Midline Cardiovascular: Yes: Regular Rate and Rhythm Respiratory: Yes: Cough, Rhonchi, SOB Gastrointestinal: Yes: WNL Edema: No Neurological: Yes: Alert, Oriented Labs: CBC, BMP 08/03/17 05:05 08/03/17 05:05 INR, PTT INR 1.02 (0.82-1.09) 07/26/17 05:55 Fibrinogen 788.0 mg/dL (238-498) H 07/27/17 06:15 Problem List - Problems (1) Abscess Code(s): L02.91 - CUTANEOUS ABSCESS, UNSPECIFIED (2) Abscess of forearm Code(s): L02.419 - CUTANEOUS ABSCESS OF LIMB, UNSPECIFIED (3) DKA, type 1 Code(s): E10.10 - TYPE 1 DIABETES MELLITUS WITH KETOACIDOSIS WITHOUT COMA Qualifiers: Diabetes mellitus complication detail: without coma Qualified Code(s): E10.10 - Type 1 diabetes mellitus with ketoacidosis without coma (4) Diabetic ketoacidosis Code(s): E13.10 - OTH DIABETES MELLITUS WITH KETOACIDOSIS WITHOUT COMA Qualifiers: Diabetes mellitus type: type 1 Diabetes mellitus complication detail: without coma Qualified Code(s): E10.10 - Type 1 diabetes mellitus with ketoacidosis without coma (5) Gram-positive bacteremia Code(s): R78.81 - BACTEREMIA (6) Hypokalemia Code(s): E87.6 - HYPOKALEMIA (7) Sepsis Code(s): A41.9 - SEPSIS, UNSPECIFIED ORGANISM (8) Thrombophlebitis arm Code(s): I80.8 - PHLEBITIS AND THROMBOPHLEBITIS OF OTHER SITES Assessment/Plan Current Active Problems Abscess (Acute) Abscess of forearm (Acute) DKA, type 1 (Acute) Diabetic ketoacidosis (Acute) Esophagitis (Acute) Gram-positive bacteremia (Acute) Hypokalemia (Acute) Infective endocarditis (Acute) MRSA (methicillin resistant Staphylococcus aureus) septicemia (Acute) Pleural effusion (Acute) Sepsis (Acute) Thrombophlebitis arm (Acute) Abnormal Lab Results 08/02/17 08/03/17 08/03/17 20:35 05:05 05:05 WBC 14.1 H RBC 2.58 L Hgb 8.0 L D Hct 23.7 L RDW 18.4 H Plt Count 681 H D ABG pH ABG pO2 at Pt Temp ABG HCO3 ABG O2 Content ABG Base Excess Sodium 133 L Anion Gap 7 L Creatinine 0.6 L D Random Glucose 343 H* Calcium 6.7 L* 7.5 L Magnesium 1.7 L Alkaline Phosphatase 239 H D Total Protein 6.0 L Albumin 1.0 L 08/03/17 11:30 WBC RBC Hgb Hct RDW Plt Count ABG pH 7.47 H ABG pO2 at Pt Temp 60.0 L ABG HCO3 28.6 H ABG O2 Content 10.0 L ABG Base Excess 4.9 H Sodium Anion Gap Creatinine Random Glucose Calcium Magnesium Alkaline Phosphatase Total Protein Albumin plan: Laboratory Tests 08/01/17 08/02/17 08/02/17 21:56 06:30 06:43 Chloride 99 BUN 15 POC Glucometer 226 392 08/02/17 08/03/17 08/03/17 17:40 05:13 07:28 Chloride BUN POC Glucometer > 400 115.53910 117.66236 08/03/17 13:14 Chloride BUN POC Glucometer 72.82763 levemir 17 units am once taking po and diet resume bgm qid achs novolog insulin doses
--- NOTE | 2017-08-03 21:55 | PN ---
Progress Note, Physician History of Present Illness: No new complaints - Current Medication List Current Medications: Active Medications Acetaminophen (Tylenol -) 650 mg PO Q6H PRN PRN Reason: FEVER Last Admin: 08/01/17 22:17 Dose: 650 mg Buprenorphine/Naloxone (Suboxone 8mg/2mg Sl Film -) 1 each SL DAILY [facility] Last Admin: 08/03/17 10:08 Dose: Not Given Clonidine (Catapres -) 0.1 mg PO BID [facility] Last Admin: 08/03/17 10:06 Dose: Not Given Cyclobenzaprine HCl (Flexeril -) 10 mg PO TID [facility] Last Admin: 08/03/17 14:13 Dose: 10 mg Fluconazole (Diflucan -) 200 mg PO DAILY [facility] Stop: 08/09/17 13:45 Last Admin: 08/03/17 10:06 Dose: Not Given Gabapentin (Neurontin -) 300 mg PO TID [facility] Last Admin: 08/03/17 14:13 Dose: 300 mg TELAVANCIN HCL 700 mg/ (Dextrose) 292 mls @ 292 mls/hr IVPB DAILY [facility] Last Admin: 08/03/17 10:15 Dose: 292 mls/hr Ceftaroline Fosamil 600 mg/ (Dextrose) 100 mls @ 200 mls/hr IVPB TID [facility] PRN Reason: Protocol Last Admin: 08/03/17 15:38 Dose: 200 mls/hr Insulin Aspart (Novolog Vial Sliding Scale -) 1 vial SQ ACHS [facility] PRN Reason: Protocol Last Admin: 08/03/17 16:36 Dose: Not Given Insulin Detemir (Levemir Vial) 17 units SQ AM [facility] Insulin Detemir (Levemir Vial) 15 units SQ HS [facility] Nicotine (Nicoderm Patch -) 21 mg TD DAILY [facility] Last Admin: 08/03/17 10:09 Dose: 21 mg Nicotine Polacrilex (Nicorette Gum -) 2 mg BUC Q2H PRN PRN Reason: NICOTINE REPLACEMENT RX Ondansetron HCl (Zofran Odt -) 8 mg SL Q6H PRN PRN Reason: NAUSEA AND/OR VOMITING Pantoprazole Sodium (Protonix -) 40 mg PO BID [facility] Last Admin: 08/03/17 10:07 Dose: Not Given Multivit/Folic Acid/Iron ( Vitamins (Sjr) -) 1 tab PO DAILY [facility] Last Admin: 08/03/17 10:07 Dose: Not Given Sucralfate (Carafate Oral Suspension -) 1 gm PO QID [facility] Last Admin: 08/03/17 17:33 Dose: 1 gm Thiamine HCl (Vitamin B1 -) 100 mg PO HS [facility] Last Admin: 08/02/17 22:09 Dose: 100 mg Zolpidem Tartrate (Ambien -) 10 mg PO HS PRN PRN Reason: INSOMNIA Last Admin: 08/02/17 22:24 Dose: 10 mg - Objective Vital Signs: Vital Signs Temperature 97.8 F 08/03/17 15:00 Pulse Rate 102 H 08/03/17 16:00 Respiratory Rate 19 08/03/17 16:00 Blood Pressure 125/91 08/03/17 16:00 O2 Sat by Pulse Oximetry (%) 94 L 08/03/17 16:40 HENT: Yes: WNL Neck: Yes: WNL, Supple Cardiovascular: Yes: Tachycardia Respiratory: Yes: Diminished Gastrointestinal: Yes: WNL, Normal Bowel Sounds, Soft Extremities: Yes: Other (LUE w/ edema) Edema: LUE: 1+ Labs: CBC, BMP 08/03/17 05:05 08/03/17 05:05 INR, PTT INR 1.02 (0.82-1.09) 07/26/17 05:55 Fibrinogen 788.0 mg/dL (238-498) H 07/27/17 06:15 Problem List - Problems (1) Sepsis Assessment/Plan: S/P I&D/debridement/fasciotomy Lt forearm MRSA Bacteremia/supprative thrombophlebitis IV telavancin/ceftaroline CT scan abd/chest: Septic emboli/anascra PEG was done and did not show any vegetations Code(s): A41.9 - SEPSIS, UNSPECIFIED ORGANISM (2) Diabetic ketoacidosis Assessment/Plan: Cont levemir Cont sliding scale w/ coverge Code(s): E13.10 - OTH DIABETES MELLITUS WITH KETOACIDOSIS WITHOUT COMA (3) Thrombocytosis Code(s): D47.3 - ESSENTIAL (HEMORRHAGIC) THROMBOCYTHEMIA (4) Anemia Code(s): D64.9 - ANEMIA, UNSPECIFIED (5) Opioid dependence with withdrawal Code(s): F11.23 - OPIOID DEPENDENCE WITH WITHDRAWAL
[2017-08-03] MEDS: THIAMINE HCL 100 MG TABLET (FP) PO SCH (22:01)
[2017-08-03] MEDS: INSULIN DETEMIR 100 UNITS/ML MDV SQ SCH (22:06)
[2017-08-04] MEDS: CYCLOBENZAPRINE HCL 10 MG TABLET (FP) PO SCH ×3 (05:40→22:29)
[2017-08-04] MEDS: CEFTAROLINE FOSAMIL ACETATE 600 MG in DEXTROSE 5%-WATER - 100 ML IVPB SCH ×3 (05:40→22:32)
[2017-08-04] MEDS: GABAPENTIN 300 MG CAPSULE (FP) PO SCH ×3 (05:40→22:30)
[2017-08-04] MEDS: INSULIN SLIDING SCALE (NOVOLOG) 1 VIAL SQ SCH ×4 (06:28→22:30)
[2017-08-04] MEDS: INSULIN DETEMIR 100 UNITS/ML MDV SQ SCH ×2 (06:28→22:31)
[2017-08-04 06:48] LABS: HEMATOCRIT 24.6 % (35.4-49); HEMOGLOBIN 8.3 GM/dL (11.7-16.9); MCH 31.2 pg (25.7-33.7); MCHC 33.7 g/dl (32.0-35.9); MEAN CELL VOLUME 92.5 fl (80-96); PLATELET COUNT 699 K/MM3 (134-434); RBC 2.66 M/mm3 (4.00-5.60); RDW 18.2 % (11.9-15.9); WHITE BLOOD COUNT 11.6 K/mm3 (4.0-10.0)
[2017-08-04 06:59] LABS: CHLORIDE 99 mmol/L (98-107); POTASSIUM 4.4 mmol/L (3.5-5.1); SODIUM 136 mmol/L (136-145)
[2017-08-04 07:07] LABS: ALK PHOS 216 U/L (45-117); ANION GAP 11 (8-16); BILIRUBIN,TOTAL 0.4 mg/dL (0.2-1.0); BLOOD UREA NITROGEN 12 mg/dL (7-18); CALCIUM 7.1 mg/dL (8.5-10.1); CO2 26 mmol/L (21-32); CREATININE 0.7 mg/dL (0.7-1.3); GLUCOSE,RANDOM 201 mg/dL (74-106); MAGNESIUM 1.9 mg/dL (1.8-2.4); PHOSPHOROUS 3.5 mg/dL (2.5-4.9); SGOT/AST 22 U/L (15-37); SGPT/ALT 24 U/L (12-78); TOT PROT 5.9 g/dl (6.4-8.2)
--- NOTE | 2017-08-04 07:49 | PN ---
Progress Note (short form) - Note Progress Note: ID Televancin & Ceftaroline On positive side No fever in 48 hours. WBC was coming down yesterday an his PEG was negative for any vegetations OF concern is his SOB pleuritic chest pain and what looks like may be lung injury ARDS on chest xray Selected Entries 08/03/17 22:00 Temperature 98.9 F Pulse Rate 104 H Respiratory 20 Rate Blood Pressure 125/86 O2 Sat by Pulse 94 L Oximetry (%) Oxygen Flow 4 Rate Microbiology 07/26/17 08:00 Blood - Peripheral Venous Blood Culture - Final S Aureus 07/24/17 00:00 Urine - Urine Clean Catch Urine Culture - Final S Aureus 07/23/17 23:35 Blood - Peripheral Venous Blood Culture - Final S Aureus Streptococcus Acidominimus 07/23/17 23:35 Blood - Peripheral Venous Blood Culture - Final S Aureus Streptococcus Acidominimus 08/01/17 10:43 Blood - Peripheral Venous Blood Culture - Preliminary Presumptive Mrsa (Pbp2a Pos) 08/01/17 10:30 Blood - Peripheral Venous Blood Culture - Preliminary Presumptive Mrsa (Pbp2a Pos) Laboratory Tests 08/03/17 08/04/17 08/04/17 05:05 06:15 06:15 WBC 14.1 H Pending Hgb Pending Hct Pending Plt Count Pending BUN 12 Creat Clearance w eGFR > 60 Assessment Suppurative throbophlebitis MRSA & Strep acidominimus bacteremia persistant despite therapy So far have not been able to identify any other occult source. He does have septic pulmonary emboli cavitating lesions / PNA. ALso the left chest was not thoracenteced. Plan Continue current antibiotics Advise thoracentesis today left chest Repeat the blood cultures x 2 today Critical care time spent 35 minutes Bob SANDERSON
[2017-08-04] MEDS: SUCRALFATE 1 GM/10 ML UNIT DOSE CUPS PO SCH ×4 (09:29→22:29)
[2017-08-04] MEDS: cloNIDine HCL 0.1 MG TABLET PO SCH ×2 (09:30→22:29)
[2017-08-04] MEDS: FLUCONAZOLE 100 MG TABLET (UD) PO SCH (09:30)
[2017-08-04] MEDS: BUPRENORPHINE/NALOXONE 8 MG/2 MG FILM PACKET SL SCH (09:30)
[2017-08-04] MEDS: NICOTINE 21 MG/24 HOURS TOPICAL PATCH TD SCH (09:30)
[2017-08-04] MEDS: PANTOPRAZOLE 40 MG TABLET (FP) PO SCH ×2 (09:30→22:31)
[2017-08-04] MEDS: PRENATAL VITAMINS W/ FOLIC ACID TABLET (FP) PO SCH (09:31)
[2017-08-04] MEDS: WATER IVPB SCH (11:17)
[2017-08-04] MEDS: DEXTROSE 5% IVPB SCH (11:17)
[2017-08-04] MEDS: TELAVANCIN HCL IVPB SCH (11:17)
--- NOTE | 2017-08-04 12:21 | PN ---
Progress Note, Physician Chief Complaint: Pt OOB in chair; no chest pain or dyspnea. History of Present Illness: The patient is a 21 year old white male with history of IDDM since age 7, Hep C , polysubstance abuse,cigarettes, brought to the ED for decreased mental status and difficulty breathing that began this evening. The patient states he last used heroin approximately 2 hours prior to ED arrival. He also reports he last took his Insulin several hours ago. Remainder of history limited secondary to clinical condition - P - Current Medication List Current Medications: Active Medications Acetaminophen (Tylenol -) 650 mg PO Q6H PRN PRN Reason: FEVER Last Admin: 08/01/17 22:17 Dose: 650 mg Buprenorphine/Naloxone (Suboxone 8mg/2mg Sl Film -) 1 each SL DAILY [facility] Last Admin: 08/04/17 09:30 Dose: 1 each Clonidine (Catapres -) 0.1 mg PO BID [facility] Last Admin: 08/04/17 09:30 Dose: 0.1 mg Cyclobenzaprine HCl (Flexeril -) 10 mg PO TID [facility] Last Admin: 08/04/17 05:40 Dose: 10 mg Fluconazole (Diflucan -) 200 mg PO DAILY [facility] Stop: 08/09/17 13:45 Last Admin: 08/04/17 09:30 Dose: 200 mg Gabapentin (Neurontin -) 300 mg PO TID [facility] Last Admin: 08/04/17 05:40 Dose: 300 mg TELAVANCIN HCL 700 mg/ (Dextrose) 292 mls @ 292 mls/hr IVPB DAILY [facility] Last Admin: 08/04/17 11:17 Dose: 292 mls/hr Ceftaroline Fosamil 600 mg/ (Dextrose) 100 mls @ 200 mls/hr IVPB TID [facility] PRN Reason: Protocol Last Admin: 08/04/17 05:40 Dose: 200 mls/hr Insulin Aspart (Novolog Vial Sliding Scale -) 1 vial SQ ACHS [facility] PRN Reason: Protocol Last Admin: 08/04/17 11:32 Dose: 8 units Insulin Detemir (Levemir Vial) 17 units SQ AM [facility] Last Admin: 08/04/17 06:28 Dose: 17 units Insulin Detemir (Levemir Vial) 15 units SQ HS [facility] Last Admin: 08/03/17 22:06 Dose: 15 units Nicotine (Nicoderm Patch -) 21 mg TD DAILY [facility] Last Admin: 08/04/17 09:30 Dose: 21 mg Nicotine Polacrilex (Nicorette Gum -) 2 mg BUC Q2H PRN PRN Reason: NICOTINE REPLACEMENT RX Ondansetron HCl (Zofran Odt -) 8 mg SL Q6H PRN PRN Reason: NAUSEA AND/OR VOMITING Pantoprazole Sodium (Protonix -) 40 mg PO BID [facility] Last Admin: 08/04/17 09:30 Dose: 40 mg Multivit/Folic Acid/Iron ( Vitamins (Sjr) -) 1 tab PO DAILY [facility] Last Admin: 08/04/17 09:31 Dose: Not Given Sucralfate (Carafate Oral Suspension -) 1 gm PO QID [facility] Last Admin: 08/04/17 09:29 Dose: 1 gm Thiamine HCl (Vitamin B1 -) 100 mg PO HS [facility] Last Admin: 08/03/17 22:01 Dose: 100 mg Zolpidem Tartrate (Ambien -) 10 mg PO HS PRN PRN Reason: INSOMNIA Last Admin: 08/02/17 22:24 Dose: 10 mg - Objective Vital Signs: Vital Signs Temperature 98.6 F 08/04/17 10:00 Pulse Rate 90 08/04/17 10:00 Respiratory Rate 22 08/04/17 10:00 Blood Pressure 120/85 08/04/17 10:00 O2 Sat by Pulse Oximetry (%) 93 L 08/04/17 10:00 Constitutional: Yes: Calm Eyes: Yes: WNL HENT: Yes: WNL Neck: Yes: WNL Cardiovascular: Yes: WNL Respiratory: Yes: Regular Gastrointestinal: Yes: Soft ...Rectal Exam: Yes: Deferred Genitourinary: No: Anuria Musculoskeletal: Yes: WNL Extremities: Yes: Cool Edema: Yes Edema: RUE: 2+ Integumentary: Yes: Erythema (left arm) Neurological: Yes: WNL Psychiatric: Yes: Other (addiction) Labs: CBC, BMP 08/04/17 06:15 08/04/17 06:15 INR, PTT INR 1.02 (0.82-1.09) 07/26/17 05:55 Fibrinogen 788.0 mg/dL (238-498) H 07/27/17 06:15 Abnormal Lab Results 08/04/17 08/04/1718 06:15 06:15 06:15 WBC 11.6 H RBC 2.66 L Hgb 8.3 L Hct 24.6 L RDW 18.2 H Plt Count 699 H ESR 103 H Random Glucose 201 H D Calcium 7.1 L Alkaline Phosphatase 216 H C-Reactive Protein 8.0 H Total Protein 5.9 L Albumin 1.0 L - ....Imaging Other: Report Reviewed (PEG: no vegetations) Problem List - Problems (1) Abscess of forearm Assessment/Plan: On antibiotics. Code(s): L02.419 - CUTANEOUS ABSCESS OF LIMB, UNSPECIFIED (2) MRSA (methicillin resistant Staphylococcus aureus) septicemia Assessment/Plan: PEG: no evidence of vegetations. Code(s): A41.02 - SEPSIS DUE TO METHICILLIN RESISTANT STAPHYLOCOCCUS AUREUS (3) Pleural effusion Code(s): J90 - PLEURAL EFFUSION, NOT ELSEWHERE CLASSIFIED (4) Sepsis Code(s): A41.9 - SEPSIS, UNSPECIFIED ORGANISM (5) Anemia Code(s): D64.9 - ANEMIA, UNSPECIFIED (6) Cocaine dependence Code(s): F14.20 - COCAINE DEPENDENCE, UNCOMPLICATED Qualifiers: Substance use status: uncomplicated Qualified Code(s): F14.20 - Cocaine dependence, uncomplicated (7) Elevated LFTs Code(s): R79.89 - OTHER SPECIFIED ABNORMAL FINDINGS OF BLOOD CHEMISTRY (8) Facial cellulitis Code(s): L03.211 - CELLULITIS OF FACE (9) Nicotine dependence Assessment/Plan: on nicotine patch. Code(s): F17.200 - NICOTINE DEPENDENCE, UNSPECIFIED, UNCOMPLICATED Qualifiers: Nicotine product type: cigarettes Substance use status: uncomplicated Qualified Code(s): F17.210 - Nicotine dependence, cigarettes, uncomplicated (10) Opioid dependence with withdrawal Code(s): F11.23 - OPIOID DEPENDENCE WITH WITHDRAWAL (11) Methamphetamine dependence Code(s): F15.20 - OTHER STIMULANT DEPENDENCE, UNCOMPLICATED (12) Hypoalbuminemia Code(s): E88.09 - OTH DISORDERS OF PLASMA-PROTEIN METABOLISM, NEC (13) Substance abuse Assessment/Plan: rehabilitation program will be all-important Code(s): F19.10 - OTHER PSYCHOACTIVE SUBSTANCE ABUSE, UNCOMPLICATED Assessment/Plan ccu time spent: 45 minutes.
--- NOTE | 2017-08-04 14:28 | PN ---
Progress Note (short form) - Note Progress Note: Covering for Dr. Beauchamp: Left proximal volar forearm/antecubital fossa wounds x2, s/p I&D/debridement of infected thrombophlebitis secondary to heroin injection Dressing changed - two open areas, parallel and offset, with some yellowish exudate more in proximal wound than distal, not significantly tender redressed with xeroform over both areas, folded 4x4s and Kerlix wrap to hold Pt instructed to continue elevating left arm Vital Signs Period Temp Pulse Resp BP Sys/Nolan Pulse Ox Last 24 Hr 97.8 F-98.9 F 90-113 18-28 112-129/74-100 93-98 MRSA from blood cultures as recently as 08/01. On antibiotics per ID. Per notes, also with pneumonia and pleural effusions s/p IR drainage A&O Tolerating diet, in good spirits Thin, no acute distress Wounds appear stable from previous notes, edema improving CBC, BMP 08/04/17 06:15 08/04/17 06:15 Microbiology 08/01/17 10:30 Blood Culture - Final Blood - Peripheral Venous Mr S Aureus 08/03/17 06:00 Urine Culture - Final Urine - Urine Clean Catch NO GROWTH OBTAINED 08/01/17 10:43 Blood Culture - Preliminary Blood - Peripheral Venous Presumptive Mrsa (Pbp2a Pos) 07/31/17 14:30 Gram Stain - Final Pleural Fluid Body Fluid Culture - Final NO GROWTH OF AEROBIC ORGANISMS AFTER 48 HOURS INCUBATION Anaerobic Culture - Final NO ANAEROBES WERE ISOLATED A/P: POD9 s/p left forearm debridement as above continue daily wound care with dressing changes - done today left arm elevation antibiotics per ID for MRSA septicemia other care per primary/ICU team Problem List - Problems (1) Thrombophlebitis arm Assessment/Plan: POD9 s/p I&D/debridement of left forearm for septic thrombophlebitis secondary to heroin injection in type 1 diabetic polysubstance abuser wounds healing slowly dressing changed - continue daily wound care antibiotics per ID blood cultures still MRSA+ PEG done - no vegetations but small L->R PFO noted lung nodules possibly septic emboli, pleural effusions s/p drainage will follow for wound care This patient is critically ill. Time spent reviewing chart, examining patient, talking with providers and/or family and documentation is 35 minutes Code(s): I80.8 - PHLEBITIS AND THROMBOPHLEBITIS OF OTHER SITES (2) Abscess of left forearm Code(s): L02.414 - CUTANEOUS ABSCESS OF LEFT UPPER LIMB (3) MRSA (methicillin resistant Staphylococcus aureus) septicemia Code(s): A41.02 - SEPSIS DUE TO METHICILLIN RESISTANT STAPHYLOCOCCUS AUREUS (4) Diabetes Code(s): E11.9 - TYPE 2 DIABETES MELLITUS WITHOUT COMPLICATIONS Qualifiers: Diabetes mellitus type: type 1 Diabetes mellitus complication status: with ketoacidosis Diabetes mellitus complication detail: without coma Qualified Code(s): E10.10 - Type 1 diabetes mellitus with ketoacidosis without coma (5) Cocaine dependence Code(s): F14.20 - COCAINE DEPENDENCE, UNCOMPLICATED Qualifiers: Substance use status: uncomplicated Qualified Code(s): F14.20 - Cocaine dependence, uncomplicated (6) Nicotine dependence Code(s): F17.200 - NICOTINE DEPENDENCE, UNSPECIFIED, UNCOMPLICATED Qualifiers: Nicotine product type: cigarettes Substance use status: uncomplicated Qualified Code(s): F17.210 - Nicotine dependence, cigarettes, uncomplicated (7) Opioid dependence with withdrawal Code(s): F11.23 - OPIOID DEPENDENCE WITH WITHDRAWAL (8) Pleural effusion Assessment/Plan: s/p IR drainages Code(s): J90 - PLEURAL EFFUSION, NOT ELSEWHERE CLASSIFIED (9) Patent foramen ovale Assessment/Plan: small PFO with left to right flow seen on PEG Code(s): Q21.1 - ATRIAL SEPTAL DEFECT
--- NOTE | 2017-08-04 16:07 | PROC ---
Procedure Note Procedure: Thoracentesis: Pt consented, consent placed in chart. L chest prepped and draped in sterile fashion. Local anesthesia with 1% lidocaine. Using US guidance an appropriate pocket of pleural fluid was identified. There was noted septations/loculations. An 18ga needle was introduced in the 5th intercostal space, and blunt catheter threaded via needle which was withdrawn, slightly dark straw colored fluid was obtained. 100cc with removed. Fluid was sent to lab for studies and culture. Catheter was removed and dressing placed. Pt tolerated procedure well. Post procedure cxr was ordered. Dwight Pineda ACNP [id number]
[2017-08-04 16:21] LABS: PLEURAL FLUID APPEARANCE HAZY; PLEURAL FLUID COLOR YELLOW
[2017-08-04 17:18] LABS: PLEURAL FLUID LYMPHOCYTES 16 %; PLEURAL FLUID NEUTROPHIL 70 %
[2017-08-04 17:19] LABS: PLEURAL FLUID MESOTHELIAL 14 %
--- NOTE | 2017-08-04 21:06 | PN ---
Progress Note, Physician - Current Medication List Current Medications: Active Medications Acetaminophen (Tylenol -) 650 mg PO Q6H PRN PRN Reason: FEVER Last Admin: 08/01/17 22:17 Dose: 650 mg Buprenorphine/Naloxone (Suboxone 8mg/2mg Sl Film -) 1 each SL DAILY [facility] Last Admin: 08/04/17 09:30 Dose: 1 each Clonidine (Catapres -) 0.1 mg PO BID [facility] Last Admin: 08/04/17 09:30 Dose: 0.1 mg Cyclobenzaprine HCl (Flexeril -) 10 mg PO TID [facility] Last Admin: 08/04/17 13:25 Dose: 10 mg Fluconazole (Diflucan -) 200 mg PO DAILY [facility] Stop: 08/09/17 13:45 Last Admin: 08/04/17 09:30 Dose: 200 mg Gabapentin (Neurontin -) 300 mg PO TID [facility] Last Admin: 08/04/17 13:25 Dose: 300 mg TELAVANCIN HCL 700 mg/ (Dextrose) 292 mls @ 292 mls/hr IVPB DAILY [facility] Last Admin: 08/04/17 11:17 Dose: 292 mls/hr Ceftaroline Fosamil 600 mg/ (Dextrose) 100 mls @ 200 mls/hr IVPB TID [facility] PRN Reason: Protocol Last Admin: 08/04/17 13:25 Dose: 200 mls/hr Insulin Aspart (Novolog Vial Sliding Scale -) 1 vial SQ ACHS [facility] PRN Reason: Protocol Last Admin: 08/04/17 16:20 Dose: 4 units Insulin Detemir (Levemir Vial) 17 units SQ AM [facility] Last Admin: 08/04/17 06:28 Dose: 17 units Insulin Detemir (Levemir Vial) 15 units SQ HS [facility] Last Admin: 08/03/17 22:06 Dose: 15 units Nicotine (Nicoderm Patch -) 21 mg TD DAILY [facility] Last Admin: 08/04/17 09:30 Dose: 21 mg Nicotine Polacrilex (Nicorette Gum -) 2 mg BUC Q2H PRN PRN Reason: NICOTINE REPLACEMENT RX Ondansetron HCl (Zofran Odt -) 8 mg SL Q6H PRN PRN Reason: NAUSEA AND/OR VOMITING Pantoprazole Sodium (Protonix -) 40 mg PO BID [facility] Last Admin: 02/24/18 09:30 Dose: 40 mg Multivit/Folic Acid/Iron ( Vitamins (Sjr) -) 1 tab PO DAILY [facility] Last Admin: 08/04/17 09:31 Dose: Not Given Sucralfate (Carafate Oral Suspension -) 1 gm PO QID [facility] Last Admin: 08/04/17 18:22 Dose: 1 gm Thiamine HCl (Vitamin B1 -) 100 mg PO HS [facility] Last Admin: 08/03/17 22:01 Dose: 100 mg Zolpidem Tartrate (Ambien -) 10 mg PO HS PRN PRN Reason: INSOMNIA Last Admin: 08/02/17 22:24 Dose: 10 mg - Objective Vital Signs: Vital Signs Temperature 98.7 F 08/04/17 18:00 Pulse Rate 128 H 08/04/17 18:00 Respiratory Rate 24 08/04/17 18:00 Blood Pressure 131/84 08/04/17 18:00 O2 Sat by Pulse Oximetry (%) 93 L 08/04/17 10:00 Labs: CBC, BMP 08/04/17 06:15 08/04/17 06:15 INR, PTT INR 1.02 (0.82-1.09) 07/26/17 05:55 Fibrinogen 788.0 mg/dL (238-498) H 07/27/17 06:15 Problem List - Problems (1) Sepsis Assessment/Plan: S/P I&D/debridement/fasciotomy Lt forearm MRSA Bacteremia/supprative thrombophlebitis IV telavancin/ceftaroline CT scan abd/chest: Septic emboli/anascra PEG was done and did not show any vegetations Code(s): A41.9 - SEPSIS, UNSPECIFIED ORGANISM (2) Diabetic ketoacidosis Assessment/Plan: Cont levemir Cont sliding scale w/ coverge Code(s): E13.10 - OTH DIABETES MELLITUS WITH KETOACIDOSIS WITHOUT COMA (3) Opioid dependence with withdrawal Code(s): F11.23 - OPIOID DEPENDENCE WITH WITHDRAWAL (4) Thrombocytosis Code(s): D47.3 - ESSENTIAL (HEMORRHAGIC) THROMBOCYTHEMIA (5) Anemia Code(s): D64.9 - ANEMIA, UNSPECIFIED
[2017-08-04] MEDS: ZOLPIDEM TARTRATE 5 MG TABLET PO PRN (22:31)
[2017-08-04] MEDS: THIAMINE HCL 100 MG TABLET (FP) PO SCH (23:00)
[2017-08-05 06:23] LABS: HEMOGLOBIN 8.3 GM/dL (11.7-16.9); MCH 31.4 pg (25.7-33.7); MCHC 33.3 g/dl (32.0-35.9); MEAN CELL VOLUME 94.5 fl (80-96); MEAN PLT VOLUME 8.6 fl (7.5-11.1); PLATELET COUNT 676 K/MM3 (134-434); RBC 2.65 M/mm3 (4.00-5.60)
[2017-08-05] MEDS: GABAPENTIN 300 MG CAPSULE (FP) PO SCH ×3 (06:24→21:48)
[2017-08-05] MEDS: CEFTAROLINE FOSAMIL ACETATE 600 MG in DEXTROSE 5%-WATER - 100 ML IVPB SCH ×3 (06:24→21:48)
[2017-08-05] MEDS: CYCLOBENZAPRINE HCL 10 MG TABLET (FP) PO SCH ×3 (06:24→21:47)
[2017-08-05] MEDS: INSULIN DETEMIR 100 UNITS/ML MDV SQ SCH ×2 (06:25→21:48)
[2017-08-05] MEDS: INSULIN SLIDING SCALE (NOVOLOG) 1 VIAL SQ SCH ×4 (06:25→21:48)
--- NOTE | 2017-08-05 06:35 | PN ---
Progress Note, Physician Chief Complaint: ID Televancin and Ceftaroline continue Has been without significant temps in 4 days Thoracentesis yesterday limited fluid not empyema ? loculated - Current Medication List Current Medications: Active Medications Acetaminophen (Tylenol -) 650 mg PO Q6H PRN PRN Reason: FEVER Last Admin: 08/01/17 22:17 Dose: 650 mg Buprenorphine/Naloxone (Suboxone 8mg/2mg Sl Film -) 1 each SL DAILY [facility] Last Admin: 08/04/17 09:30 Dose: 1 each Clonidine (Catapres -) 0.1 mg PO BID [facility] Last Admin: 08/04/17 22:29 Dose: 0.1 mg Cyclobenzaprine HCl (Flexeril -) 10 mg PO TID [facility] Last Admin: 08/05/17 06:24 Dose: 10 mg Fluconazole (Diflucan -) 200 mg PO DAILY [facility] Stop: 08/09/17 13:45 Last Admin: 08/04/17 09:30 Dose: 200 mg Gabapentin (Neurontin -) 300 mg PO TID [facility] Last Admin: 08/05/17 06:24 Dose: 300 mg TELAVANCIN HCL 700 mg/ (Dextrose) 292 mls @ 292 mls/hr IVPB DAILY [facility] Last Admin: 08/04/17 11:17 Dose: 292 mls/hr Ceftaroline Fosamil 600 mg/ (Dextrose) 100 mls @ 200 mls/hr IVPB TID [facility] PRN Reason: Protocol Last Admin: 08/05/17 06:24 Dose: 200 mls/hr Insulin Aspart (Novolog Vial Sliding Scale -) 1 vial SQ ACHS [facility] PRN Reason: Protocol Last Admin: 08/05/17 06:25 Dose: 10 units Insulin Detemir (Levemir Vial) 17 units SQ AM [facility] Last Admin: 08/05/17 06:25 Dose: 17 units Insulin Detemir (Levemir Vial) 15 units SQ HS [facility] Last Admin: 08/04/17 22:31 Dose: 15 units Nicotine (Nicoderm Patch -) 21 mg TD DAILY [facility] Last Admin: 08/04/17 09:30 Dose: 21 mg Nicotine Polacrilex (Nicorette Gum -) 2 mg BUC Q2H PRN PRN Reason: NICOTINE REPLACEMENT RX Ondansetron HCl (Zofran Odt -) 8 mg SL Q6H PRN PRN Reason: NAUSEA AND/OR VOMITING Pantoprazole Sodium (Protonix -) 40 mg PO BID [facility] Last Admin: 08/04/17 22:31 Dose: 40 mg Multivit/Folic Acid/Iron ( Vitamins (Sjr) -) 1 tab PO DAILY [facility] Last Admin: 08/04/17 09:31 Dose: Not Given Sucralfate (Carafate Oral Suspension -) 1 gm PO QID [facility] Last Admin: 08/04/17 22:29 Dose: 1 gm Thiamine HCl (Vitamin B1 -) 100 mg PO HS [facility] Last Admin: 08/04/17 23:00 Dose: 100 mg Zolpidem Tartrate (Ambien -) 10 mg PO HS PRN PRN Reason: INSOMNIA Last Admin: 08/04/17 22:31 Dose: 10 mg - Objective Vital Signs: Vital Signs Temperature 98.4 F 08/05/17 02:00 Pulse Rate 92 H 08/05/17 04:00 Respiratory Rate 22 08/05/17 04:00 Blood Pressure 123/87 08/05/17 04:00 O2 Sat by Pulse Oximetry (%) 93 L 08/04/17 22:00 Constitutional: Yes: No Distress Neck: Yes: WNL, Supple Cardiovascular: Yes: S1, S2 Respiratory: Yes: WNL, Regular, CTA Bilaterally Gastrointestinal: Yes: WNL, Normal Bowel Sounds, Soft, Ascites, Distention Edema: No Labs: INR, PTT INR 1.02 (0.82-1.09) 07/26/17 05:55 Fibrinogen 788.0 mg/dL (238-498) H 07/27/17 06:15 Assessment/Plan Microbiology Laboratory Tests 07/31/17 08/03/17 08/04/17 06:00 05:05 06:15 WBC 21.6 H 14.1 H 11.6 H Hgb 8.3 L Hct 24.6 L Plt Count 699 H Pleural Fluid Source Pleural Color Pleural RBC Pleural Glucose 08/04/17 08/04/17 16:00 16:00 WBC Hgb Hct Plt Count Pleural Fluid Source Pleural Pleural Color Yellow Pleural RBC 3,757 Pleural Glucose 207.645 Assessment MRSA bacteremia Suppurative thrombophlebitis Persistant bacateremia MRSA Bilateral pleural effusions Necrotizing pneumonia with septic emboli Chronic Hepatitis C IDDM IVDA Assessment I'm hopeful we could be "turning the corner" with him. His temps and WBC coming down Remain concerned however re his oxygenation and hypoxia-- pneumonia and possible lung injury as well as effusion related. Major issue is whether his bacteremia clears. PEG is negative which again positive finding. CRP was 30 now 8 ! Plan Repeat blood cultures should be sent and same antibiotics should continue ICU care today provided 37 minutes
[2017-08-05 06:50] LABS: ANION GAP 6 (8-16); BLOOD UREA NITROGEN 12 mg/dL (7-18); CHLORIDE 100 mmol/L (98-107); CO2 28 mmol/L (21-32); CREATININE 0.7 mg/dL (0.7-1.3); POTASSIUM 4.5 mmol/L (3.5-5.1); SODIUM 134 mmol/L (136-145)
[2017-08-05 06:52] LABS: CALCIUM 7.1 mg/dL (8.5-10.1)
[2017-08-05 07:25] LABS: GLUCOSE,RANDOM 327 mg/dL (74-106)
--- NOTE | 2017-08-05 08:57 | PN ---
Progress Note (short form) - Note Progress Note: PULM/CCM Pt Seen & Examined in the ICU. Pt in NAD. A-Febrile. OOB --> Chair. Pleural fluid from yesterday's thora NOT c/w empyema but scanty yield c/f possible loculated process. Active Medications Acetaminophen (Tylenol -) 650 mg PO Q6H PRN PRN Reason: FEVER Last Admin: 08/01/17 22:17 Dose: 650 mg Buprenorphine/Naloxone (Suboxone 8mg/2mg Sl Film -) 1 each SL DAILY [facility] Last Admin: 08/05/17 09:57 Dose: 1 each Clonidine (Catapres -) 0.1 mg PO BID [facility] Last Admin: 08/05/17 09:56 Dose: 0.1 mg Cyclobenzaprine HCl (Flexeril -) 10 mg PO TID [facility] Last Admin: 08/05/17 13:09 Dose: 10 mg Fluconazole (Diflucan -) 200 mg PO DAILY [facility] Stop: 08/09/17 13:45 Last Admin: 08/05/17 09:56 Dose: 200 mg Gabapentin (Neurontin -) 300 mg PO TID [facility] Last Admin: 08/05/17 13:09 Dose: 300 mg TELAVANCIN HCL 700 mg/ (Dextrose) 292 mls @ 292 mls/hr IVPB DAILY [facility] Last Admin: 08/05/17 10:34 Dose: 292 mls/hr Ceftaroline Fosamil 600 mg/ (Dextrose) 100 mls @ 200 mls/hr IVPB TID [facility] PRN Reason: Protocol Last Admin: 08/05/17 13:09 Dose: 200 mls/hr Insulin Aspart (Novolog Vial Sliding Scale -) 1 vial SQ ACHS [facility] PRN Reason: Protocol Last Admin: 08/05/17 16:35 Dose: Not Given Insulin Detemir (Levemir Vial) 17 units SQ AM [facility] Last Admin: 08/05/17 06:25 Dose: 17 units Insulin Detemir (Levemir Vial) 15 units SQ HS [facility] Last Admin: 08/04/17 22:31 Dose: 15 units Nicotine (Nicoderm Patch -) 21 mg TD DAILY [facility] Last Admin: 08/05/17 09:55 Dose: 21 mg Nicotine Polacrilex (Nicorette Gum -) 2 mg BUC Q2H PRN PRN Reason: NICOTINE REPLACEMENT RX Ondansetron HCl (Zofran Odt -) 8 mg SL Q6H PRN PRN Reason: NAUSEA AND/OR VOMITING Pantoprazole Sodium (Protonix -) 40 mg PO BID [facility] Last Admin: 08/05/17 09:56 Dose: 40 mg Multivit/Folic Acid/Iron ( Vitamins (Sjr) -) 1 tab PO DAILY [facility] Last Admin: 08/05/17 09:56 Dose: 1 tab Sucralfate (Carafate Oral Suspension -) 1 gm PO QID [facility] Last Admin: 08/05/17 13:10 Dose: 1 gm Thiamine HCl (Vitamin B1 -) 100 mg PO HS [facility] Last Admin: 08/04/17 23:00 Dose: 100 mg Zolpidem Tartrate (Ambien -) 10 mg PO HS PRN PRN Reason: INSOMNIA Last Admin: 08/04/17 22:31 Dose: 10 mg Vital Signs Temp 99.4 F 08/05/17 12:00 Pulse 128 H 08/05/17 16:00 Resp 22 08/05/17 16:00 BP 124/76 08/05/17 16:00 Pulse Ox 98 08/05/17 10:00 Intake & Output 08/04/17 08/05/17 08/05/17 23:59 11:59 23:59 Intake Total 2550 1850 Output Total 2100 1800 Balance 450 50 Intake: IV 900 LACTATED RINGERS SOLUTION 900 1,000 ml In 1,000 ml @ 1000 mls/hr IV ONCE STA Rx#:[id number] IVPB 350 350 Oral 2200 600 Output: Urine 2100 1800 Void 2100 1800 Other: Voiding Method Urinal Urinal # Unmeasured Voids Void 2 Bowel Movement No # Bowel Movements 1 GEN: young man, CA+OX3, thin, wasted, toxic, but NAD PULM: CTAB CV: nml S1 S2, RR ABD: + BS, S/S N/T N/D X4Q EXT: WWP X4, + Pulses, S/p I&D/debridement/fasciotomy L forearm, (-) edema CBC, BMP 08/05/17 06:00 08/05/17 06:00 Microbiology 08/01/17 10:43 Blood - Peripheral Venous Blood Culture - Final Presumptive Mrsa (Pbp2a Pos) 08/01/17 10:30 Blood - Peripheral Venous Blood Culture - Final Mr S Aureus 08/03/17 06:00 Urine - Urine Clean Catch Urine Culture - Final NO GROWTH OBTAINED 07/31/17 14:30 Pleural Fluid Gram Stain - Final 07/31/17 14:30 Pleural Fluid Body Fluid Culture - Final NO GROWTH OF AEROBIC ORGANISMS AFTER 48 HOURS INCUBATION 07/31/17 14:30 Pleural Fluid Anaerobic Culture - Final NO ANAEROBES WERE ISOLATED 07/31/17 14:30 Pleural Fluid AFB Smear Concentration - Preliminary 07/31/17 14:30 Pleural Fluid Mycobacterial Culture - Preliminary 07/31/17 14:30 Pleural Fluid BRITTNY Preparation - Preliminary 07/31/17 14:30 Pleural Fluid Fungal Culture - Preliminary 07/27/17 09:20 Blood - Peripheral Venous Blood Culture - Final S Aureus 07/27/17 08:41 Blood - Peripheral Venous Blood Culture - Final S Aureus 07/29/17 05:55 Blood - Picc Line Blood Culture - Final S Aureus 07/29/17 05:55 Blood - Picc Line Blood Culture - Final S Aureus 07/26/17 15:30 Arm - Left Forearm Gram Stain - Final 07/26/17 15:30 Arm - Left Forearm Wound Culture - Final S Aureus 07/26/17 08:20 Blood - Peripheral Venous Blood Culture - Final Staphylococcus Aureus 07/26/17 08:00 Blood - Peripheral Venous Blood Culture - Final S Aureus 07/23/17 23:35 Blood - Peripheral Venous Blood Culture - Final S Aureus Streptococcus Acidominimus 07/23/17 23:35 Blood - Peripheral Venous Blood Culture - Final S Aureus Streptococcus Acidominimus 07/24/17 00:00 Urine - Urine Clean Catch Urine Culture - Final S Aureus RECENT STUDIES TO NOTE: CXR 08/04: Extensive bilateral pulmonary and pleural changes, left greater than right and prominent mediastinum persist. ASSESS: -DKA (resolved) -Necrotizing pneumonia with septic emboli -Persistent MRSA Bacteremia/LUE Abscess s/p debridement -Suppurative thrombophlebitis -Chronic Hep C -CRISTINA -IDDM -IVDA PLAN: -Supp FiO2 prn for an SpO2 > 92% -Abx a/p ID -Repeat Blood Clxrs -Diabetic Diet -Cont levemir -Cont sliding scale w/ coverge -Trend CBC -Normal Transfusion thresholds -Monitor UOP -Trend BUN/Cr -Sleep Hygiene -Suboxone -Nicotene patch -Vit B1 -DVT prophylaxis -PPI DGL, ACNP-BC [facility] ICU PULM/CCM [id number] 39" CCT
[2017-08-05] MEDS ORDERED: PT OWN MED DRAWER 7, Y5N ONE ×3 (09:39→17:38)
[2017-08-05] MEDS: NICOTINE 21 MG/24 HOURS TOPICAL PATCH TD SCH (09:55)
[2017-08-05] MEDS: cloNIDine HCL 0.1 MG TABLET PO SCH ×2 (09:56→22:04)
[2017-08-05] MEDS: PANTOPRAZOLE 40 MG TABLET (FP) PO SCH ×2 (09:56→21:47)
[2017-08-05] MEDS: PRENATAL VITAMINS W/ FOLIC ACID TABLET (FP) PO SCH (09:56)
[2017-08-05] MEDS: SUCRALFATE 1 GM/10 ML UNIT DOSE CUPS PO SCH ×4 (09:56→21:47)
[2017-08-05] MEDS: FLUCONAZOLE 100 MG TABLET (UD) PO SCH (09:56)
[2017-08-05] MEDS: BUPRENORPHINE/NALOXONE 8 MG/2 MG FILM PACKET SL SCH (09:57)
[2017-08-05] MEDS: WATER IVPB SCH (10:34)
[2017-08-05] MEDS: DEXTROSE 5% IVPB SCH (10:34)
[2017-08-05] MEDS: TELAVANCIN HCL IVPB SCH (10:34)
--- NOTE | 2017-08-05 12:57 | PN ---
Progress Note, Physician Chief Complaint: Pt A&Ox3; sharp central chest pain moderate when breathes in; no palpitations. History of Present Illness: The patient is a 21 year old white male with history of IDDM since age 7, Hep C , polysubstance abuse,cigarettes, brought to the ED for decreased mental status and difficulty breathing that began this evening. The patient states he last used heroin approximately 2 hours prior to ED arrival. He also reports he last took his Insulin several hours ago. Remainder of history limited secondary to clinical condition - P - Current Medication List Current Medications: Active Medications Acetaminophen (Tylenol -) 650 mg PO Q6H PRN PRN Reason: FEVER Last Admin: 08/01/17 22:17 Dose: 650 mg Buprenorphine/Naloxone (Suboxone 8mg/2mg Sl Film -) 1 each SL DAILY [facility] Last Admin: 08/05/17 09:57 Dose: 1 each Clonidine (Catapres -) 0.1 mg PO BID [facility] Last Admin: 08/05/17 09:56 Dose: 0.1 mg Cyclobenzaprine HCl (Flexeril -) 10 mg PO TID [facility] Last Admin: 08/05/17 06:24 Dose: 10 mg Fluconazole (Diflucan -) 200 mg PO DAILY [facility] Stop: 08/09/17 13:45 Last Admin: 08/05/17 09:56 Dose: 200 mg Gabapentin (Neurontin -) 300 mg PO TID [facility] Last Admin: 08/05/17 06:24 Dose: 300 mg TELAVANCIN HCL 700 mg/ (Dextrose) 292 mls @ 292 mls/hr IVPB DAILY [facility] Last Admin: 08/05/17 10:34 Dose: 292 mls/hr Ceftaroline Fosamil 600 mg/ (Dextrose) 100 mls @ 200 mls/hr IVPB TID [facility] PRN Reason: Protocol Last Admin: 08/05/17 06:24 Dose: 200 mls/hr Insulin Aspart (Novolog Vial Sliding Scale -) 1 vial SQ ACHS [facility] PRN Reason: Protocol Last Admin: 08/05/17 10:45 Dose: 6 units Insulin Detemir (Levemir Vial) 17 units SQ AM [facility] Last Admin: 08/05/17 06:25 Dose: 17 units Insulin Detemir (Levemir Vial) 15 units SQ HS [facility] Last Admin: 08/04/17 22:31 Dose: 15 units Nicotine (Nicoderm Patch -) 21 mg TD DAILY [facility] Last Admin: 08/05/17 09:55 Dose: 21 mg Nicotine Polacrilex (Nicorette Gum -) 2 mg BUC Q2H PRN PRN Reason: NICOTINE REPLACEMENT RX Ondansetron HCl (Zofran Odt -) 8 mg SL Q6H PRN PRN Reason: NAUSEA AND/OR VOMITING Pantoprazole Sodium (Protonix -) 40 mg PO BID [facility] Last Admin: 08/05/17 09:56 Dose: 40 mg Multivit/Folic Acid/Iron ( Vitamins (Sjr) -) 1 tab PO DAILY [facility] Last Admin: 08/05/17 09:56 Dose: 1 tab Sucralfate (Carafate Oral Suspension -) 1 gm PO QID [facility] Last Admin: 08/05/17 09:56 Dose: 1 gm Thiamine HCl (Vitamin B1 -) 100 mg PO HS [facility] Last Admin: 08/04/17 23:00 Dose: 100 mg Zolpidem Tartrate (Ambien -) 10 mg PO HS PRN PRN Reason: INSOMNIA Last Admin: 08/04/17 22:31 Dose: 10 mg - Objective Vital Signs: Vital Signs Temperature 99.4 F 08/05/17 12:00 Pulse Rate 140 H 08/05/17 12:00 Respiratory Rate 22 08/05/17 12:00 Blood Pressure 121/81 08/05/17 12:00 O2 Sat by Pulse Oximetry (%) 98 08/05/17 10:00 Constitutional: Yes: Anxious Eyes: Yes: WNL HENT: Yes: WNL Neck: Yes: WNL Cardiovascular: Yes: Tachycardia Respiratory: Yes: WNL Extremities: Yes: Cool Edema: Yes Edema: LUE: 1+ (dresses) Labs: CBC, BMP 08/05/17 06:00 08/05/17 06:00 INR, PTT INR 1.02 (0.82-1.09) 07/26/17 05:55 Fibrinogen 788.0 mg/dL (238-498) H 07/27/17 06:15 - ....Imaging Chest X-ray: Image Reviewed (08/04: bilateral infiltrates/pleural effusion) Problem List - Problems (1) Abscess of forearm Assessment/Plan: antibiotics per ID. wOUND CARE. Code(s): L02.419 - CUTANEOUS ABSCESS OF LIMB, UNSPECIFIED (2) MRSA (methicillin resistant Staphylococcus aureus) septicemia Assessment/Plan: PEG: no evidence of vegetations/endocarditis. Small PFO Code(s): A41.02 - SEPSIS DUE TO METHICILLIN RESISTANT STAPHYLOCOCCUS AUREUS (3) Pleural effusion Assessment/Plan: s/p thoracentesis Code(s): J90 - PLEURAL EFFUSION, NOT ELSEWHERE CLASSIFIED (4) Sepsis Code(s): A41.9 - SEPSIS, UNSPECIFIED ORGANISM (5) Anemia Assessment/Plan: + stool occult blood Code(s): D64.9 - ANEMIA, UNSPECIFIED (6) Cocaine dependence Code(s): F14.20 - COCAINE DEPENDENCE, UNCOMPLICATED Qualifiers: Substance use status: uncomplicated Qualified Code(s): F14.20 - Cocaine dependence, uncomplicated (7) Elevated LFTs Code(s): R79.89 - OTHER SPECIFIED ABNORMAL FINDINGS OF BLOOD CHEMISTRY (8) Facial cellulitis Code(s): L03.211 - CELLULITIS OF FACE (9) Nicotine dependence Assessment/Plan: on nicotine patch. Code(s): F17.200 - NICOTINE DEPENDENCE, UNSPECIFIED, UNCOMPLICATED Qualifiers: Nicotine product type: cigarettes Substance use status: uncomplicated Qualified Code(s): F17.210 - Nicotine dependence, cigarettes, uncomplicated (10) Opioid dependence with withdrawal Code(s): F11.23 - OPIOID DEPENDENCE WITH WITHDRAWAL (11) Methamphetamine dependence Code(s): F15.20 - OTHER STIMULANT DEPENDENCE, UNCOMPLICATED (12) Hypoalbuminemia Code(s): E88.09 - OTH DISORDERS OF PLASMA-PROTEIN METABOLISM, NEC (13) Sinus tachycardia Assessment/Plan: hydration (agree with IV fluids). Rx of infection. s/p thoracentesis. Pain management. Anxiolytics may be helpful. Low suspicion for PE, but if HR does not respond to the above, would consider it. Code(s): R00.0 - TACHYCARDIA, UNSPECIFIED (14) Substance abuse Assessment/Plan: rehabilitation program will be all-important. Pt requests this, saying the neighborhood he would otherwise return to is "all drug addicts". Code(s): F19.10 - OTHER PSYCHOACTIVE SUBSTANCE ABUSE, UNCOMPLICATED
[2017-08-05] MEDS ORDERED: LACTATED RINGERS SOLUTION 1,000 ML/1,000 ML INFUS.BAG IV STA (12:58)
--- NOTE | 2017-08-05 15:42 | PN ---
Progress Note, Physician History of Present Illness: No new complaints - Current Medication List Current Medications: Active Medications Acetaminophen (Tylenol -) 650 mg PO Q6H PRN PRN Reason: FEVER Last Admin: 08/01/17 22:17 Dose: 650 mg Buprenorphine/Naloxone (Suboxone 8mg/2mg Sl Film -) 1 each SL DAILY [facility] Last Admin: 08/05/17 09:57 Dose: 1 each Clonidine (Catapres -) 0.1 mg PO BID [facility] Last Admin: 08/05/17 09:56 Dose: 0.1 mg Cyclobenzaprine HCl (Flexeril -) 10 mg PO TID [facility] Last Admin: 08/05/17 13:09 Dose: 10 mg Fluconazole (Diflucan -) 200 mg PO DAILY [facility] Stop: 08/09/17 13:45 Last Admin: 08/05/17 09:56 Dose: 200 mg Gabapentin (Neurontin -) 300 mg PO TID [facility] Last Admin: 08/05/17 13:09 Dose: 300 mg TELAVANCIN HCL 700 mg/ (Dextrose) 292 mls @ 292 mls/hr IVPB DAILY [facility] Last Admin: 08/05/17 10:34 Dose: 292 mls/hr Ceftaroline Fosamil 600 mg/ (Dextrose) 100 mls @ 200 mls/hr IVPB TID [facility] PRN Reason: Protocol Last Admin: 08/05/17 13:09 Dose: 200 mls/hr Insulin Aspart (Novolog Vial Sliding Scale -) 1 vial SQ ACHS [facility] PRN Reason: Protocol Last Admin: 08/05/17 10:45 Dose: 6 units Insulin Detemir (Levemir Vial) 17 units SQ AM [facility] Last Admin: 08/05/17 06:25 Dose: 17 units Insulin Detemir (Levemir Vial) 15 units SQ HS [facility] Last Admin: 08/04/17 22:31 Dose: 15 units Nicotine (Nicoderm Patch -) 21 mg TD DAILY [facility] Last Admin: 08/05/17 09:55 Dose: 21 mg Nicotine Polacrilex (Nicorette Gum -) 2 mg BUC Q2H PRN PRN Reason: NICOTINE REPLACEMENT RX Ondansetron HCl (Zofran Odt -) 8 mg SL Q6H PRN PRN Reason: NAUSEA AND/OR VOMITING Pantoprazole Sodium (Protonix -) 40 mg PO BID [facility] Last Admin: 08/05/17 09:56 Dose: 40 mg Multivit/Folic Acid/Iron ( Vitamins (Sjr) -) 1 tab PO DAILY [facility] Last Admin: 08/05/17 09:56 Dose: 1 tab Sucralfate (Carafate Oral Suspension -) 1 gm PO QID [facility] Last Admin: 08/05/17 13:10 Dose: 1 gm Thiamine HCl (Vitamin B1 -) 100 mg PO HS [facility] Last Admin: 08/04/17 23:00 Dose: 100 mg Zolpidem Tartrate (Ambien -) 10 mg PO HS PRN PRN Reason: INSOMNIA Last Admin: 08/04/17 22:31 Dose: 10 mg - Objective Vital Signs: Vital Signs Temperature 99.4 F 08/05/17 12:00 Pulse Rate 132 H 08/05/17 14:00 Respiratory Rate 22 08/05/17 14:00 Blood Pressure 120/82 08/05/17 14:00 O2 Sat by Pulse Oximetry (%) 98 08/05/17 10:00 HENT: Yes: WNL Neck: Yes: WNL, Supple Cardiovascular: Yes: Tachycardia Respiratory: Yes: Diminished Gastrointestinal: Yes: WNL, Normal Bowel Sounds, Soft Edema: LUE: 1+ Labs: CBC, BMP 08/05/17 06:00 08/05/17 06:00 INR, PTT INR 1.02 (0.82-1.09) 07/26/17 05:55 Fibrinogen 788.0 mg/dL (238-498) H 07/27/17 06:15 Problem List - Problems (1) Sepsis Assessment/Plan: S/P I&D/debridement/fasciotomy Lt forearm MRSA Bacteremia/supprative thrombophlebitis IV telavancin/ceftaroline CT scan abd/chest: Septic emboli/anascra PEG was done and did not show any vegetations Code(s): A41.9 - SEPSIS, UNSPECIFIED ORGANISM (2) Diabetic ketoacidosis Assessment/Plan: Cont levemir Cont sliding scale w/ coverge Code(s): E13.10 - OTH DIABETES MELLITUS WITH KETOACIDOSIS WITHOUT COMA (3) Thrombocytosis Assessment/Plan: Reactive in nature Probably due to sepsis Code(s): D47.3 - ESSENTIAL (HEMORRHAGIC) THROMBOCYTHEMIA (4) Anemia Assessment/Plan: H/H stable Pt has been transfused 1 unit PRBC's Code(s): D64.9 - ANEMIA, UNSPECIFIED (5) Opioid dependence with withdrawal Code(s): F11.23 - OPIOID DEPENDENCE WITH WITHDRAWAL
[2017-08-05] MEDS: ZOLPIDEM TARTRATE 5 MG TABLET PO PRN (21:47)
[2017-08-05] MEDS: THIAMINE HCL 100 MG TABLET (FP) PO SCH (21:48)
[2017-08-05] MEDS: ACETAMINOPHEN 325 MG TABLET (FP) PO PRN (22:04)
[2017-08-06] MEDS: CYCLOBENZAPRINE HCL 10 MG TABLET (FP) PO SCH ×3 (05:09→21:20)
[2017-08-06] MEDS: GABAPENTIN 300 MG CAPSULE (FP) PO SCH ×3 (05:10→21:20)
[2017-08-06] MEDS: CEFTAROLINE FOSAMIL ACETATE 600 MG in DEXTROSE 5%-WATER - 100 ML IVPB SCH ×3 (05:10→21:19)
[2017-08-06] MEDS: INSULIN DETEMIR 100 UNITS/ML MDV SQ SCH ×2 (06:34→21:29)
[2017-08-06] MEDS: INSULIN SLIDING SCALE (NOVOLOG) 1 VIAL SQ SCH ×4 (06:35→21:29)
--- NOTE | 2017-08-06 06:48 | PN ---
Progress Note (short form) - Note Progress Note: ID Telavancin & Ceftaroline Afebrile Complains of chest pains Selected Entries 08/05/17 08/05/17 08/05/17 18:01 20:00 22:00 Temperature 99 F Pulse Rate 134 H Respiratory 18 Rate Blood Pressure 118/81 O2 Sat by Pulse 98 Oximetry (%) Microbiology 08/01/17 10:43 Blood - Peripheral Venous Blood Culture - Final Presumptive Mrsa (Pbp2a Pos) 08/01/17 10:30 Blood - Peripheral Venous Blood Culture - Final Mr S Aureus 07/23/17 23:35 Blood - Peripheral Venous Blood Culture - Final Mr S Aureus Streptococcus Acidominimus 07/23/17 23:35 Blood - Peripheral Venous Blood Culture - Final Mr S Aureus Streptococcus Acidominimus 08/05/17 06:00 Blood - Peripheral Venous Blood Culture - Preliminary NO GROWTH OBTAINED AFTER 24 HOURS, INCUBATION TO CONTINUE FOR 4 DAYS. Laboratory Tests 08/05/17 08/05/17 06:00 06:00 WBC 10.0 Hgb 8.3 L Hct 25.0 L Plt Count 676 H BUN 12 Creatinine 0.7 Assessment MRSA bacteremia ? clearing - Fever down WBC normal, CRP down. However chest pains secondary pleural effusions and septic emboli necrotizing PNA. Still hypoxic suspect lung injury pulmonary emboli and effusions. Plan Continue antibiotics Blood cultures today Thoracic surgery consult re ? loculated effusions Repeat his CT scan Bob SANDERSON
--- NOTE | 2017-08-06 07:28 | PN ---
Progress Note, Physician History of Present Illness: Weekend: Patient received second pleural tap. Fluid sent. Blood cultures from yesterday neg so far Today: Has pleuritic chest pain causing splinting. On NC 3.5L with sats in low 90s. Tachycardic with exertion - Objective Vital Signs: Vital Signs Period Temp Pulse Resp BP Sys/Nolan Pulse Ox Last 24 Hr 98.4 F-99 F 110-134 18-22 111-129/70-90 92-98 Additional Findings/Remarks: GEN: AAOx3, NAD, Lying comfortably HEENT: PERRLA, EOMi CV: S1, S2, RRR LUNG: Crackles on R > L ABD: Soft, NT, ND MSK: NO edema, no erythema Assessment/Plan 21yo M with DM1, Active Heroin User, Hep C, who originally presented in DKA w/ MRSA bacteremia. Readmitted to the ICU for acute hypoxic RF. Pulm: * # Acute Hypoxic RF - Pt has multiple B/L opacities and pleural effusions. Could be 2/2 septic emboli from MRSA bacteremia from IVDA. No endocardial vegetations on PEG. O2 sat is still low 90s on 3L NC. Effusions have been tapped. Exudative by light's criteria. No organisms isolated from effusions. On Ceftaroline/Telavancin ID: * # MRSA bacteremia - On Ceftaroline/Telavancin, yesterday cultures are negative so far. Had L forearm abscess drained by surgery. PEG performed showing no vegetations. WBC count has normalized. Afebrile. CRP downtrending. Cardio: * # Sinus Tach - Could be 2/2 deconditioning and hypoxia. Asymptomatic. Not on meds currently. Will monitor for now. Transfer to tele Endo: * # IDDM - Poorly controlled. Levemir BID + ISS, Endocrine on board FEN/PPX: No IVF, diabetic diet, Lovenox sqd, PT Dispo: Transfer to tele, order placed Arlette Baez MD PGY1 ICU
[2017-08-06 08:29] LABS: HEMATOCRIT 24.8 % (35.4-49); MCH 30.2 pg (25.7-33.7); MCHC 32.4 g/dl (32.0-35.9); MEAN CELL VOLUME 93.2 fl (80-96); MEAN PLT VOLUME 8.2 fl (7.5-11.1); PLATELET COUNT 706 K/MM3 (134-434); RBC 2.66 M/mm3 (4.00-5.60); RDW 17.3 % (11.9-15.9); WHITE BLOOD COUNT 11.6 K/mm3 (4.0-10.0)
[2017-08-06 08:49] LABS: ALBUMIN 1.2 g/dl (3.4-5.0); ANION GAP 5 (8-16); BLOOD UREA NITROGEN 11 mg/dL (7-18); CALCIUM 7.3 mg/dL (8.5-10.1); CHLORIDE 101 mmol/L (98-107); CO2 31 mmol/L (21-32); CREATININE 0.6 mg/dL (0.7-1.3); GLUCOSE,RANDOM 97 mg/dL (74-106); MAGNESIUM 1.5 mg/dL (1.8-2.4); PHOSPHOROUS 4.5 mg/dL (2.5-4.9); POTASSIUM 4.2 mmol/L (3.5-5.1); SGOT/AST 13 U/L (15-37); SGPT/ALT 17 U/L (12-78); SODIUM 137 mmol/L (136-145)
[2017-08-06 08:50] LABS: ALK PHOS 170 U/L (45-117); BILIRUBIN,TOTAL 0.4 mg/dL (0.2-1.0); TOT PROT 6.4 g/dl (6.4-8.2)
[2017-08-06] MEDS ORDERED: PT OWN MED DRAWER 7, Y5N ONE ×4 (08:56→21:09)
[2017-08-06] MEDS ORDERED: MAGNESIUM SULF 50% (8.12 MEQ/2 ML-1 GM VIAL) IVPB ONE (09:15)
[2017-08-06] MEDS: PRENATAL VITAMINS W/ FOLIC ACID TABLET (FP) PO SCH (09:52)
[2017-08-06] MEDS: SUCRALFATE 1 GM/10 ML UNIT DOSE CUPS PO SCH ×4 (09:52→21:47)
[2017-08-06] MEDS: NICOTINE 21 MG/24 HOURS TOPICAL PATCH TD SCH (09:52)
[2017-08-06] MEDS: FLUCONAZOLE 100 MG TABLET (UD) PO SCH (09:52)
[2017-08-06] MEDS: cloNIDine HCL 0.1 MG TABLET PO SCH ×2 (09:52→21:47)
[2017-08-06] MEDS: BUPRENORPHINE/NALOXONE 8 MG/2 MG FILM PACKET SL SCH (09:52)
[2017-08-06] MEDS: PANTOPRAZOLE 40 MG TABLET (FP) PO SCH ×2 (09:52→21:20)
--- NOTE | 2017-08-06 10:27 | PN ---
Progress Note, Physician Chief Complaint: IVDA with left arm cellulitis and infected thrombophlebitis History of Present Illness: 21yo LHD male PMH type 1 DM, current IV heroin user, Hepatitis C presented with altered mental status and generalized weakness. Complains of some pain in the left arm. CT scan of the chest reveals a presumed spetic pneumonia. IR completed a second thoracentesis. He was transferred to ICU for PEG. He dressing was changed over the weekend and his arm is much improved. He has no other complaints. - Current Medication List Current Medications: Active Medications Acetaminophen (Tylenol -) 650 mg PO Q6H PRN PRN Reason: FEVER Last Admin: 08/05/17 22:04 Dose: 650 mg Buprenorphine/Naloxone (Suboxone 8mg/2mg Sl Film -) 1 each SL DAILY [facility] Last Admin: 08/06/17 09:52 Dose: 1 each Clonidine (Catapres -) 0.1 mg PO BID [facility] Last Admin: 08/06/17 09:52 Dose: 0.1 mg Cyclobenzaprine HCl (Flexeril -) 10 mg PO TID [facility] Last Admin: 08/06/17 05:09 Dose: 10 mg Fluconazole (Diflucan -) 200 mg PO DAILY [facility] Stop: 08/09/17 13:45 Last Admin: 08/06/17 09:52 Dose: 200 mg Gabapentin (Neurontin -) 300 mg PO TID [facility] Last Admin: 08/06/17 05:10 Dose: 300 mg TELAVANCIN HCL 700 mg/ (Dextrose) 292 mls @ 292 mls/hr IVPB DAILY [facility] Last Admin: 08/05/17 10:34 Dose: 292 mls/hr Ceftaroline Fosamil 600 mg/ (Dextrose) 100 mls @ 200 mls/hr IVPB TID [facility] PRN Reason: Protocol Last Admin: 08/06/17 05:10 Dose: 200 mls/hr Insulin Aspart (Novolog Vial Sliding Scale -) 1 vial SQ ACHS [facility] PRN Reason: Protocol Last Admin: 08/06/17 06:35 Dose: 6 units Insulin Detemir (Levemir Vial) 17 units SQ AM [facility] Last Admin: 08/06/17 06:34 Dose: 17 units Insulin Detemir (Levemir Vial) 15 units SQ HS [facility] Last Admin: 08/05/17 21:48 Dose: 15 units Nicotine (Nicoderm Patch -) 21 mg TD DAILY [facility] Last Admin: 08/06/17 09:52 Dose: 21 mg Nicotine Polacrilex (Nicorette Gum -) 2 mg BUC Q2H PRN PRN Reason: NICOTINE REPLACEMENT RX Ondansetron HCl (Zofran Odt -) 8 mg SL Q6H PRN PRN Reason: NAUSEA AND/OR VOMITING Pantoprazole Sodium (Protonix -) 40 mg PO BID [facility] Last Admin: 08/06/17 09:52 Dose: 40 mg Multivit/Folic Acid/Iron ( Vitamins (Sjr) -) 1 tab PO DAILY [facility] Last Admin: 08/06/17 09:52 Dose: Not Given Sucralfate (Carafate Oral Suspension -) 1 gm PO QID [facility] Last Admin: 08/06/17 09:52 Dose: Not Given Thiamine HCl (Vitamin B1 -) 100 mg PO HS [facility] Last Admin: 08/05/17 21:48 Dose: 100 mg Zolpidem Tartrate (Ambien -) 10 mg PO HS PRN PRN Reason: INSOMNIA Last Admin: 08/05/17 21:47 Dose: 10 mg - Objective Vital Signs: Vital Signs Temperature 98.4 F 08/06/17 05:11 Pulse Rate 112 H 08/06/17 07:13 Respiratory Rate 18 08/06/17 07:13 Blood Pressure 121/90 08/06/17 07:13 O2 Sat by Pulse Oximetry (%) 92 L 08/06/17 07:19 Vital Signs Period Temp Pulse Resp BP Sys/Nolan Pulse Ox Last 24 Hr 98.4 F-99.4 F 110-140 18-22 111-124/70-90 92-98 Intake & Output 08/05/17 08/06/17 08/06/17 23:59 07:59 15:59 Intake Total 100 400 Output Total 1000 600 Balance -900 -200 Intake: IVPB 200 Oral 100 200 Output: Urine 1000 600 Void 1000 600 Other: Voiding Method Urinal Urinal Bowel Movement No No Constitutional: Yes: No Distress, Calm, Thin Eyes: Yes: Conjunctiva Clear, EOM Intact HENT: Yes: Atraumatic, Normocephalic Neck: Yes: Supple, Trachea Midline Cardiovascular: Yes: Regular Rate and Rhythm, S1, S2. No: Murmur Respiratory: Yes: Regular, CTA Bilaterally Gastrointestinal: Yes: Normal Bowel Sounds, Soft. No: Tenderness Genitourinary: No: CVA Tenderness - Left, CVA Tenderness - Right Musculoskeletal: Yes: Joint Stiffness (left elbow - 15degrees full neutral extension, flextion is full). No: Muscle Pain, Muscle Weakness Extremities: No: Cool, Cyanosis Edema: Yes Edema: LUE: Trace Peripheral Pulses WNL: Yes Peripheral Pulses: Left Radial: 2+, Right Radial: 2+, Left Doralis Pedis: 2+, Right Dorsalis Pedis: 2+, Left Femoral: 2+, Right Femoral: 2+ Integumentary: No: Jaundice, Rash Wound/Incision: Yes: Clean/Dry, Unapproximated (Wound Measurement: two linear 2 [id number] yellow stained exudate soft tissue, new granulation Dressing instructions: oil emulsion dressing, 4X4 gauze sponges, Aaron wrap) Neurological: Yes: Alert, Oriented Psychiatric: Yes: Alert, Oriented Labs: CBC, BMP 08/06/17 07:50 08/06/17 07:50 INR, PTT INR 1.02 (0.82-1.09) 07/26/17 05:55 Fibrinogen 788.0 mg/dL (238-498) H 07/27/17 06:15 Microbiology 08/04/17 16:00 Pleural Fluid AFB Smear Concentration - Preliminary 08/04/17 16:00 Pleural Fluid Mycobacterial Culture - Preliminary 08/05/17 06:00 Blood - Peripheral Venous Blood Culture - Preliminary NO GROWTH OBTAINED AFTER 24 HOURS, INCUBATION TO CONTINUE FOR 4 DAYS. 08/01/17 10:43 Blood - Peripheral Venous Blood Culture - Final Presumptive Mrsa (Pbp2a Pos) 08/01/17 10:30 Blood - Peripheral Venous Blood Culture - Final Mr S Aureus 08/03/17 06:00 Urine - Urine Clean Catch Urine Culture - Final NO GROWTH OBTAINED 07/31/17 14:30 Pleural Fluid Gram Stain - Final 07/31/17 14:30 Pleural Fluid Body Fluid Culture - Final NO GROWTH OF AEROBIC ORGANISMS AFTER 48 HOURS INCUBATION 07/31/17 14:30 Pleural Fluid Anaerobic Culture - Final NO ANAEROBES WERE ISOLATED 07/31/17 14:30 Pleural Fluid AFB Smear Concentration - Preliminary 07/31/17 14:30 Pleural Fluid Mycobacterial Culture - Preliminary 07/31/17 14:30 Pleural Fluid BRITTNY Preparation - Preliminary 07/31/17 14:30 Pleural Fluid Fungal Culture - Preliminary 07/27/17 09:20 Blood - Peripheral Venous Blood Culture - Final S Aureus 07/27/17 08:41 Blood - Peripheral Venous Blood Culture - Final Mr S Aureus 07/29/17 05:55 Blood - Picc Line Blood Culture - Final S Aureus 07/29/17 05:55 Blood - Picc Line Blood Culture - Final Mr S Aureus 07/26/17 15:30 Arm - Left Forearm Gram Stain - Final 07/26/17 15:30 Arm - Left Forearm Wound Culture - Final S Aureus 07/26/17 08:20 Blood - Peripheral Venous Blood Culture - Final Staphylococcus Aureus 07/26/17 08:00 Blood - Peripheral Venous Blood Culture - Final S Aureus 07/23/17 23:35 Blood - Peripheral Venous Blood Culture - Final S Aureus Streptococcus Acidominimus 07/23/17 23:35 Blood - Peripheral Venous Blood Culture - Final S Aureus Streptococcus Acidominimus 07/24/17 00:00 Urine - Urine Clean Catch Urine Culture - Final S Aureus Problem List - Problems (1) MRSA (methicillin resistant Staphylococcus aureus) septicemia Assessment/Plan: 21 yo LHD male with Hepatitis C, DM type 1 in DKA with aggressive left forearm cellulitis, thrombophlebitis, and draining abscess at the site of infecting IV drugs. MRSA septicemia, secondary to injecting heroin with contaminated needles. POD#11 s/p I&D and debridement of infected thrombophlebitis left forearm. The edema in the left arm is largely resolved. WBC now down to 11.6, blood cultures are clearing. Physical therapy follow-up for ROM left elbow Dressing Left forearm/ antecubital fossa Daily Wound Measurement: two linear 2 [id number] yellow stained exudate soft tissue, new granulation Dressing instructions: oil emulsion dressing, 4X4 gauze sponges, Aaron wrap IV antibiotics per ID left arm elevation above the heart Can follow up after discharge Code(s): A41.02 - SEPSIS DUE TO METHICILLIN RESISTANT STAPHYLOCOCCUS AUREUS (2) Thrombophlebitis arm Code(s): I80.8 - PHLEBITIS AND THROMBOPHLEBITIS OF OTHER SITES (3) Abscess of forearm Code(s): L02.419 - CUTANEOUS ABSCESS OF LIMB, UNSPECIFIED (4) Opioid dependence with withdrawal Code(s): F11.23 - OPIOID DEPENDENCE WITH WITHDRAWAL (5) Diabetes Code(s): E11.9 - TYPE 2 DIABETES MELLITUS WITHOUT COMPLICATIONS Qualifiers: Diabetes mellitus type: type 1 Diabetes mellitus complication status: with ketoacidosis Diabetes mellitus complication detail: without coma Qualified Code(s): E10.10 - Type 1 diabetes mellitus with ketoacidosis without coma
[2017-08-06] MEDS: DEXTROSE 5% IVPB SCH (10:47)
[2017-08-06] MEDS: WATER IVPB SCH (10:47)
[2017-08-06] MEDS: TELAVANCIN HCL IVPB SCH (10:47)
--- NOTE | 2017-08-06 10:50 | PN ---
Progress Note, Physician History of Present Illness: Seen and examined today in nad. states he is overall feeling better. still gets very sob with exertion. - Current Medication List Current Medications: Active Medications Acetaminophen (Tylenol -) 650 mg PO Q6H PRN PRN Reason: FEVER Last Admin: 08/05/17 22:04 Dose: 650 mg Buprenorphine/Naloxone (Suboxone 8mg/2mg Sl Film -) 1 each SL DAILY [facility] Last Admin: 08/06/17 09:52 Dose: 1 each Clonidine (Catapres -) 0.1 mg PO BID [facility] Last Admin: 08/06/17 09:52 Dose: 0.1 mg Cyclobenzaprine HCl (Flexeril -) 10 mg PO TID [facility] Last Admin: 08/06/17 05:09 Dose: 10 mg Fluconazole (Diflucan -) 200 mg PO DAILY [facility] Stop: 08/09/17 13:45 Last Admin: 08/06/17 09:52 Dose: 200 mg Gabapentin (Neurontin -) 300 mg PO TID [facility] Last Admin: 08/06/17 05:10 Dose: 300 mg TELAVANCIN HCL 700 mg/ (Dextrose) 292 mls @ 292 mls/hr IVPB DAILY [facility] Last Admin: 08/05/17 10:34 Dose: 292 mls/hr Ceftaroline Fosamil 600 mg/ (Dextrose) 100 mls @ 200 mls/hr IVPB TID [facility] PRN Reason: Protocol Last Admin: 08/06/17 05:10 Dose: 200 mls/hr Insulin Aspart (Novolog Vial Sliding Scale -) 1 vial SQ ACHS [facility] PRN Reason: Protocol Last Admin: 08/06/17 06:35 Dose: 6 units Insulin Detemir (Levemir Vial) 17 units SQ AM [facility] Last Admin: 08/06/17 06:34 Dose: 17 units Insulin Detemir (Levemir Vial) 15 units SQ HS [facility] Last Admin: 08/05/17 21:48 Dose: 15 units Nicotine (Nicoderm Patch -) 21 mg TD DAILY [facility] Last Admin: 08/06/17 09:52 Dose: 21 mg Nicotine Polacrilex (Nicorette Gum -) 2 mg BUC Q2H PRN PRN Reason: NICOTINE REPLACEMENT RX Ondansetron HCl (Zofran Odt -) 8 mg SL Q6H PRN PRN Reason: NAUSEA AND/OR VOMITING Pantoprazole Sodium (Protonix -) 40 mg PO BID [facility] Last Admin: 08/06/17 09:52 Dose: 40 mg Multivit/Folic Acid/Iron ( Vitamins (Sjr) -) 1 tab PO DAILY [facility] Last Admin: 08/06/17 09:52 Dose: Not Given Sucralfate (Carafate Oral Suspension -) 1 gm PO QID [facility] Last Admin: 08/06/17 09:52 Dose: Not Given Thiamine HCl (Vitamin B1 -) 100 mg PO HS [facility] Last Admin: 08/05/17 21:48 Dose: 100 mg Zolpidem Tartrate (Ambien -) 10 mg PO HS PRN PRN Reason: INSOMNIA Last Admin: 08/05/17 21:47 Dose: 10 mg - Objective Vital Signs: Vital Signs Temperature 98.4 F 08/06/17 05:11 Pulse Rate 112 H 08/06/17 07:13 Respiratory Rate 18 08/06/17 07:13 Blood Pressure 121/90 08/06/17 07:13 O2 Sat by Pulse Oximetry (%) 92 L 08/06/17 07:19 Constitutional: Yes: No Distress, Calm Eyes: Yes: Conjunctiva Clear, EOM Intact, PERRL HENT: Yes: Atraumatic, Normocephalic Neck: Yes: Supple, Trachea Midline Cardiovascular: Yes: Tachycardia, S1, S2. No: Regular Rate and Rhythm, Bradycardia, Pulse Irregular, Bruit, JVD, Gallop, Murmur, Rub, S3, S4, Varicosities Respiratory: Yes: Regular, Diminished, On Nasal O2, Rhonchi. No: Rales, SOB, Wheezes Gastrointestinal: Yes: Normal Bowel Sounds, Soft. No: Distention, Tenderness Extremities: Yes: Other (L arm dressing in place) Edema: No Peripheral Pulses WNL: Yes Peripheral Pulses: Left Doralis Pedis: 2+, Right Dorsalis Pedis: 2+ Neurological: Yes: Alert, Oriented Psychiatric: Yes: Alert, Oriented Labs: CBC, BMP 08/06/17 07:50 08/06/17 07:50 INR, PTT INR 1.02 (0.82-1.09) 07/26/17 05:55 Fibrinogen 788.0 mg/dL (238-498) H 07/27/17 06:15 - ....Imaging Chest X-ray: Report Reviewed, Image Reviewed EKG: Report Reviewed, Image Reviewed Other: Report Reviewed, Image Reviewed (tele-NSR, sinus tach) Assessment/Plan IMP: IVDA with persistently + bacteremia, evidence of septic emboli and initial clinical concern for Endocarditis REC: PEG showed no echo evidence of endocarditis Sinus tach persists likely due to infection, hypoxia WBC and inflammatory markers improving Cont abx, supportive care, IVF hydration as needed
[2017-08-06] MEDS ORDERED: NICOTINE POLACRILEX 2 MG GUM BUC PRN (12:19)
[2017-08-06] MEDS ORDERED: ONDANSETRON *ODT* 4 MG TABLET SL PRN (12:19)
--- NOTE | 2017-08-06 12:43 | PN ---
Teaching Attending Note Name of Resident: Arlette Baez ATTENDING PHYSICIAN STATEMENT I saw and evaluated the patient. I reviewed the resident's note and discussed the case with the resident. I agree with the resident's findings and plan as documented. SUBJECTIVE: Pt seen and examined in the ICU. No fevers recorded. Last cultures negative. Tachycardic with exertion. OBJECTIVE: Last Vital Signs Temp Pulse Resp BP Pulse Ox 98.6 F 120 H 20 129/81 92 L 08/06/17 12:06 08/06/17 12:06 08/06/17 12:06 08/06/17 12:06 08/06/17 07:19 Intake & Output 08/03/17 08/04/17 08/05/17 08/06/17 23:59 23:59 23:59 23:59 Intake Total 2705 3750 2450 400 Output Total 3175 2700 2800 1600 Balance -470 1050 -350 -1200 Weight 70.845 kg 70.76 kg Gen: more alert, awake Heart: tachycardic, regular Lung: basilar rhonchi Abd: soft, nontender Ext: no edema CBC, BMP 08/06/17 07:50 08/06/17 07:50 Active Medications Acetaminophen (Tylenol -) 650 mg PO Q6H PRN PRN Reason: FEVER Buprenorphine/Naloxone (Suboxone 8mg/2mg Sl Film -) 1 each SL DAILY [facility] Clonidine (Catapres -) 0.1 mg PO BID [facility] Cyclobenzaprine HCl (Flexeril -) 10 mg PO TID [facility] Enoxaparin Sodium (Lovenox -) 40 mg SQ DAILY [facility] Fluconazole (Diflucan -) 200 mg PO DAILY [facility] Stop: 08/09/17 13:45 Gabapentin (Neurontin -) 300 mg PO TID [facility] Ceftaroline Fosamil 600 mg/ (Dextrose) 100 mls @ 200 mls/hr IVPB TID [facility] PRN Reason: Protocol TELAVANCIN HCL 700 mg/ (Dextrose) 292 mls @ 292 mls/hr IVPB DAILY [facility] Insulin Aspart (Novolog Vial Sliding Scale -) 1 vial SQ ACHS [facility] PRN Reason: Protocol Insulin Detemir (Levemir Vial) 17 units SQ AM [facility] Insulin Detemir (Levemir Vial) 15 units SQ HS [facility] Nicotine (Nicoderm Patch -) 21 mg TD DAILY [facility] Nicotine Polacrilex (Nicorette Gum -) 2 mg BUC Q2H PRN PRN Reason: NICOTINE REPLACEMENT RX Ondansetron HCl (Zofran Odt -) 8 mg SL Q6H PRN PRN Reason: NAUSEA AND/OR VOMITING Pantoprazole Sodium (Protonix -) 40 mg PO BID [facility] Multivit/Folic Acid/Iron ( Vitamins (Sjr) -) 1 tab PO DAILY [facility] Sucralfate (Carafate Oral Suspension -) 1 gm PO QID [facility] Thiamine HCl (Vitamin B1 -) 100 mg PO HS [facility] Zolpidem Tartrate (Ambien -) 10 mg PO HS PRN PRN Reason: INSOMNIA ASSESSMENT AND PLAN: Persistent MRSA Bacteremia/LUE Abscess s/p debridement Lung Nodules likely Septic Emboli Diabetic Ketoacidosis resolved Septic Shock resolving Thrombocytopenia improved Acute Kidney Injury improved Lactic Acidosis resolved +Troponins likely Demand Ischemia IVDU/Polysubstance Abuse Anemia - continue antibiotics - f/u pending cultures until cleared - monitor urine output, creatinine - O2 to keep SpO2 >90% - monitor H/H - protonix - glucose control - DVT prophylaxis - can monitor on telemetry critical care time spent in reviewing chart, evaluating patient and formulating plan 35 min
[2017-08-06] MEDS: ACETAMINOPHEN 325 MG TABLET (FP) PO PRN (15:54)
--- NOTE | 2017-08-06 16:12 | CONSULT ---
Consult Consult Specialty:: Thoracic Surgery Referred by:: Frank Rojas Reason for Consultation:: B/L pleural effusions - History of Present Illness Chief Complaint: Fever, left arm abscess History of Present Illness: 21M IVDA with DM s/p recent hospitalization with pna p/w left arm cellulitis/ abscess and respiratory sx. In hospital for [address] shows B/L lung lesions appearing inflammatory. Growing out MRSA from LUE wound and blood. PEG negative. - History Source History Provided By: Patient, Medical Record - Past Medical History PUMP TESTER: No: Alzheimer's, Dementia Cardio/Vascular: No: AFIB Pulmonary: Yes: Pneumonia Gastrointestinal: Yes: Other (Hep C) Infectious Disease: Yes: Other (HEP C) Psych: Yes: Addictions Endocrine: Yes: Diabetes Mellitus Additional Medical History: polysubstance use - Past Surgical History Additional Surgical History: LUE abscess drainage - Alcohol/Substance Use Hx Alcohol Use: No History of Substance Use: reports: Cocaine, Heroin, Marijuana - Smoking History Smoking history: Unknown if ever smoked Have you smoked in the past 12 months: Yes Aproximately how many cigarettes per day: 20 - Social History Usual Living Arrangement: With Significant Other ADL: Independent Home Medications - Allergies Allergies/Adverse Reactions: Allergies Allergy/AdvReac Type Severity Reaction Status Date / Time No Known Allergies Allergy Verified 08/01/17 08:20 - Home Medications Home Medications: Ambulatory Orders Insulin Aspart [Novolog] 100 unit SQ ASDIR 07/01/15 Insulin Glargine,Hum.rec.anlog [Lantus Solostar PEN (NF)] 30 units SQ HS Buprenorphine/Naloxone [Suboxone 8Mg/2Mg Sl Film -] 1 each SL DAILY #7 film MDD 1 07/31/17 Family Disease History - Family Disease History Family Disease History: Other: Father (healthy), Mother (healthy), Brother (IDDM ) Review of Systems - Review of Systems Constitutional: reports: Fever, Unintentional Wgt. Loss Musculoskeletal: reports: Extremity Pain Physical Exam Vital Signs: Vital Signs Temperature 98.6 F 08/06/17 12:06 Pulse Rate 116 H 08/06/17 16:00 Respiratory Rate 16 08/06/17 16:00 Blood Pressure 132/86 08/06/17 16:00 O2 Sat by Pulse Oximetry (%) 92 L 02/26/18 07:19 Constitutional: Yes: Cachectic Eyes: Yes: WNL Cardiovascular: Yes: Tachycardia Respiratory: Yes: Diminished Labs: CBC, BMP 08/06/17 07:50 08/06/17 07:50 Imaging - Results Cat Scan: Report Reviewed (B/L inflammatory lesions and simple effusions) Problem List - Problems (1) Abscess of forearm Code(s): L02.419 - CUTANEOUS ABSCESS OF LIMB, UNSPECIFIED (2) Pleural effusion Assessment/Plan: Repeat CT scan, may need IR drains versus VATS. Overall improving and will follow. He is a poor VATS candidate who despite his young age is very debilitated and has a high tolerance to opiates, so would lean towards IR drains but would allow to improve with just abx if possible. His risk for recurrence of illness is extremely high. Code(s): J90 - PLEURAL EFFUSION, NOT ELSEWHERE CLASSIFIED Assessment/Plan B/L Pleural effusions and septic emboli from LUE phlebitis: Repeat CT scan Continue abx Would try medical management for as long as possible if he continues improving.
[2017-08-06] MEDS: THIAMINE HCL 100 MG TABLET (FP) PO SCH (21:20)
--- NOTE | 2017-08-06 22:45 | PN ---
Progress Note, Physician Chief Complaint: shortness of breath,high sugars History of Present Illness: dm,iddm,uncontrolled,sepsis,mrsa,bilateral lung lesions pulmonary nodules - Current Medication List Current Medications: Active Medications Acetaminophen (Tylenol -) 650 mg PO Q6H PRN PRN Reason: FEVER Last Admin: 08/06/17 15:54 Dose: 650 mg Buprenorphine/Naloxone (Suboxone 8mg/2mg Sl Film -) 1 each SL DAILY [facility] Clonidine (Catapres -) 0.1 mg PO BID [facility] Last Admin: 08/06/17 21:47 Dose: 0.1 mg Cyclobenzaprine HCl (Flexeril -) 10 mg PO TID [facility] Last Admin: 08/06/17 21:20 Dose: 10 mg Enoxaparin Sodium (Lovenox -) 40 mg SQ DAILY [facility] Fluconazole (Diflucan -) 200 mg PO DAILY [facility] Stop: 08/09/17 13:45 Gabapentin (Neurontin -) 300 mg PO TID [facility] Last Admin: 08/06/17 21:20 Dose: 300 mg Ceftaroline Fosamil 600 mg/ (Dextrose) 100 mls @ 200 mls/hr IVPB TID [facility] PRN Reason: Protocol Last Admin: 08/06/17 21:19 Dose: 200 mls/hr TELAVANCIN HCL 700 mg/ (Dextrose) 292 mls @ 292 mls/hr IVPB DAILY [facility] Insulin Aspart (Novolog Vial Sliding Scale -) 1 vial SQ ACHS [facility] PRN Reason: Protocol Last Admin: 08/06/17 21:29 Dose: 8 units Insulin Detemir (Levemir Vial) 15 units SQ HS [facility] Last Admin: 08/06/17 21:29 Dose: 15 units Insulin Detemir (Levemir Vial) 22 units SQ AM [facility] Nicotine (Nicoderm Patch -) 21 mg TD DAILY [facility] Nicotine Polacrilex (Nicorette Gum -) 2 mg BUC Q2H PRN PRN Reason: NICOTINE REPLACEMENT RX Ondansetron HCl (Zofran Odt -) 8 mg SL Q6H PRN PRN Reason: NAUSEA AND/OR VOMITING Pantoprazole Sodium (Protonix -) 40 mg PO BID [facility] Last Admin: 08/06/17 21:20 Dose: 40 mg Multivit/Folic Acid/Iron ( Vitamins (Sjr) -) 1 tab PO DAILY [facility] Sucralfate (Carafate Oral Suspension -) 1 gm PO QID [facility] Last Admin: 08/06/17 21:47 Dose: 1 gm Thiamine HCl (Vitamin B1 -) 100 mg PO HS [facility] Last Admin: 08/06/17 21:20 Dose: 100 mg Zolpidem Tartrate (Ambien -) 10 mg PO HS PRN PRN Reason: INSOMNIA - Objective Vital Signs: Vital Signs Temperature 97.8 F 08/06/17 22:00 Pulse Rate 79 08/06/17 22:00 Respiratory Rate 22 08/06/17 22:00 Blood Pressure 123/94 08/06/17 22:00 O2 Sat by Pulse Oximetry (%) 96 08/06/17 20:02 Constitutional: Yes: Calm Eyes: Yes: EOM Intact HENT: Yes: Normocephalic Neck: Yes: Trachea Midline Cardiovascular: Yes: Tachycardia, Murmur Respiratory: Yes: Rhonchi, SOB, Tachypnea, Wheezes Gastrointestinal: Yes: Soft ...Rectal Exam: Yes: Deferred Genitourinary: Yes: WNL Breast(s): Yes: WNL Musculoskeletal: Yes: WNL, Muscle Weakness Extremities: Yes: WNL Edema: No Neurological: Yes: Alert, Oriented Labs: CBC, BMP 08/06/17 07:50 08/06/17 07:50 INR, PTT INR 1.02 (0.82-1.09) 07/26/17 05:55 Fibrinogen 788.0 mg/dL (238-498) H 07/27/17 06:15 Problem List - Problems (1) Abscess Code(s): L02.91 - CUTANEOUS ABSCESS, UNSPECIFIED (2) Abscess of forearm Code(s): L02.419 - CUTANEOUS ABSCESS OF LIMB, UNSPECIFIED (3) DKA, type 1 Code(s): E10.10 - TYPE 1 DIABETES MELLITUS WITH KETOACIDOSIS WITHOUT COMA Qualifiers: Diabetes mellitus complication detail: without coma Qualified Code(s): E10.10 - Type 1 diabetes mellitus with ketoacidosis without coma (4) Diabetic ketoacidosis Code(s): E13.10 - OTH DIABETES MELLITUS WITH KETOACIDOSIS WITHOUT COMA (5) Gram-positive bacteremia Code(s): R78.81 - BACTEREMIA (6) Hypokalemia Code(s): E87.6 - HYPOKALEMIA (7) Sepsis Code(s): A41.9 - SEPSIS, UNSPECIFIED ORGANISM (8) Thrombophlebitis arm Code(s): I80.8 - PHLEBITIS AND THROMBOPHLEBITIS OF OTHER SITES Assessment/Plan Current Active Problems Abscess (Acute) Abscess of forearm (Acute) Abscess of left forearm (Acute) DKA, type 1 (Acute) Diabetic ketoacidosis (Acute) Esophagitis (Acute) Gram-positive bacteremia (Acute) Hypoalbuminemia (Acute) Hypokalemia (Acute) Infective endocarditis (Acute) MRSA (methicillin resistant Staphylococcus aureus) septicemia (Acute) Patent foramen ovale (Acute) Pleural effusion (Acute) Sepsis (Acute) Sinus tachycardia (Acute) Substance abuse (Acute) Thrombocytosis (Acute) Thrombophlebitis arm (Acute) Abnormal Lab Results 08/06/17 08/06/17 07:50 07:50 WBC 11.6 H RBC 2.66 L Hgb 8.0 L Hct 24.8 L RDW 17.3 H Plt Count 706 H Anion Gap 5 L Creatinine 0.6 L Calcium 7.3 L Magnesium 1.5 L D AST 13 L D Alkaline Phosphatase 170 H D Albumin 1.2 L Laboratory Results - last 24 hr 08/05/17 08/06/17 08/06/17 21:44 05:19 07:50 WBC 11.6 H RBC 2.66 L Hgb 8.0 L Hct 24.8 L MCV 93.2 MCH 30.2 MCHC 32.4 RDW 17.3 H Plt Count 706 H MPV 8.2 Sodium Potassium Chloride Carbon Dioxide Anion Gap BUN Creatinine Creat Clearance w eGFR POC Glucometer 232.12409 283.89705 Random Glucose Calcium Phosphorus Magnesium Total Bilirubin AST ALT Alkaline Phosphatase Total Protein Albumin 08/06/17 08/06/17 08/06/17 07:50 11:43 16:22 WBC RBC Hgb Hct MCV MCH MCHC RDW Plt Count MPV Sodium 137 Potassium 4.2 Chloride 101 Carbon Dioxide 31 Anion Gap 5 L BUN 11 Creatinine 0.6 L Creat Clearance w eGFR > 60 POC Glucometer 165.22654 [phone] Random Glucose 97 D Calcium 7.3 L Phosphorus 4.5 D Magnesium 1.5 L D Total Bilirubin 0.4 AST 13 L D ALT 17 D Alkaline Phosphatase 170 H D Total Protein 6.4 Albumin 1.2 L 08/06/17 21:04 WBC RBC Hgb Hct MCV MCH MCHC RDW Plt Count MPV Sodium Potassium Chloride Carbon Dioxide Anion Gap BUN Creatinine Creat Clearance w eGFR POC Glucometer 325.05424 Random Glucose Calcium Phosphorus Magnesium Total Bilirubin AST ALT Alkaline Phosphatase Total Protein Albumin Laboratory Tests 07/25/17 08/05/17 08/05/17 05:10 06:14 10:44 POC Glucometer 354.15939 [phone] Hemoglobin A1c % 8.6 H 08/05/17 08/05/17 16:30 21:44 POC Glucometer 78.83201 232.48958 Hemoglobin A1c % plan: increase levemir am dose 22units levemir 15 units hs bgm achs novolog insulin
--- NOTE | 2017-08-07 01:19 | PN ---
Progress Note, Physician History of Present Illness: Pt seen and examined 08/06/17 - Current Medication List Current Medications: Active Medications Acetaminophen (Tylenol -) 650 mg PO Q6H PRN PRN Reason: FEVER Last Admin: 08/06/17 15:54 Dose: 650 mg Buprenorphine/Naloxone (Suboxone 8mg/2mg Sl Film -) 1 each SL DAILY [facility] Clonidine (Catapres -) 0.1 mg PO BID [facility] Last Admin: 08/06/17 21:47 Dose: 0.1 mg Cyclobenzaprine HCl (Flexeril -) 10 mg PO TID [facility] Last Admin: 08/06/17 21:20 Dose: 10 mg Enoxaparin Sodium (Lovenox -) 40 mg SQ DAILY [facility] Fluconazole (Diflucan -) 200 mg PO DAILY [facility] Stop: 08/09/17 13:45 Gabapentin (Neurontin -) 300 mg PO TID [facility] Last Admin: 08/06/17 21:20 Dose: 300 mg Ceftaroline Fosamil 600 mg/ (Dextrose) 100 mls @ 200 mls/hr IVPB TID [facility] PRN Reason: Protocol Last Admin: 08/06/17 21:19 Dose: 200 mls/hr TELAVANCIN HCL 700 mg/ (Dextrose) 292 mls @ 292 mls/hr IVPB DAILY [facility] Insulin Aspart (Novolog Vial Sliding Scale -) 1 vial SQ ACHS [facility] PRN Reason: Protocol Last Admin: 08/06/17 21:29 Dose: 8 units Insulin Detemir (Levemir Vial) 15 units SQ HS [facility] Last Admin: 08/06/17 21:29 Dose: 15 units Insulin Detemir (Levemir Vial) 22 units SQ AM [facility] Nicotine (Nicoderm Patch -) 21 mg TD DAILY [facility] Nicotine Polacrilex (Nicorette Gum -) 2 mg BUC Q2H PRN PRN Reason: NICOTINE REPLACEMENT RX Ondansetron HCl (Zofran Odt -) 8 mg SL Q6H PRN PRN Reason: NAUSEA AND/OR VOMITING Pantoprazole Sodium (Protonix -) 40 mg PO BID [facility] Last Admin: 08/06/17 21:20 Dose: 40 mg Multivit/Folic Acid/Iron ( Vitamins (Sjr) -) 1 tab PO DAILY [facility] Sucralfate (Carafate Oral Suspension -) 1 gm PO QID [facility] Last Admin: 08/06/17 21:47 Dose: 1 gm Thiamine HCl (Vitamin B1 -) 100 mg PO HS [facility] Last Admin: 08/06/17 21:20 Dose: 100 mg Zolpidem Tartrate (Ambien -) 10 mg PO HS PRN PRN Reason: INSOMNIA - Objective Vital Signs: Vital Signs Temperature 97.8 F 08/06/17 22:00 Pulse Rate 101 H 08/07/17 00:00 Respiratory Rate 17 08/07/17 00:00 Blood Pressure 119/73 08/07/17 00:00 O2 Sat by Pulse Oximetry (%) 96 08/06/17 20:02 Neck: Yes: WNL, Supple Cardiovascular: Yes: WNL, Regular Rate and Rhythm Respiratory: Yes: WNL, Regular, CTA Bilaterally Gastrointestinal: Yes: WNL, Normal Bowel Sounds, Soft Labs: CBC, BMP 08/06/17 07:50 08/06/17 07:50 INR, PTT INR 1.02 (0.82-1.09) 07/26/17 05:55 Fibrinogen 788.0 mg/dL (238-498) H 07/27/17 06:15 Problem List - Problems (1) Sepsis Assessment/Plan: S/P I&D/debridement/fasciotomy Lt forearm MRSA Bacteremia/supprative thrombophlebitis Repeat BC remain negative IV telavancin/ceftaroline PEG was done and did not show any vegetations Code(s): A41.9 - SEPSIS, UNSPECIFIED ORGANISM (2) Diabetic ketoacidosis Code(s): E13.10 - OTH DIABETES MELLITUS WITH KETOACIDOSIS WITHOUT COMA (3) Thrombocytosis Code(s): D47.3 - ESSENTIAL (HEMORRHAGIC) THROMBOCYTHEMIA (4) Anemia Code(s): D64.9 - ANEMIA, UNSPECIFIED (5) Opioid dependence with withdrawal Code(s): F11.23 - OPIOID DEPENDENCE WITH WITHDRAWAL
[2017-08-07 06:18] LABS: HEMATOCRIT 23.9 % (35.4-49); HEMOGLOBIN 7.9 GM/dL (11.7-16.9); MCH 30.8 pg (25.7-33.7); MEAN CELL VOLUME 93.2 fl (80-96); MEAN PLT VOLUME 8.3 fl (7.5-11.1); PLATELET COUNT 706 K/MM3 (134-434); RBC 2.56 M/mm3 (4.00-5.60); RDW 17.1 % (11.9-15.9); WHITE BLOOD COUNT 8.5 K/mm3 (4.0-10.0)
[2017-08-07] MEDS ORDERED: PT OWN MED DRAWER 7, Y5N ONE ×4 (06:19→20:11)
[2017-08-07] MEDS: CYCLOBENZAPRINE HCL 10 MG TABLET (FP) PO SCH ×3 (06:21→21:09)
[2017-08-07] MEDS: GABAPENTIN 300 MG CAPSULE (FP) PO SCH ×3 (06:21→21:09)
[2017-08-07] MEDS: CEFTAROLINE FOSAMIL ACETATE 600 MG in DEXTROSE 5%-WATER - 100 ML IVPB SCH ×3 (06:22→21:07)
[2017-08-07] MEDS: INSULIN DETEMIR 100 UNITS/ML MDV SQ SCH ×2 (06:22→21:18)
[2017-08-07] MEDS: INSULIN SLIDING SCALE (NOVOLOG) 1 VIAL SQ SCH ×4 (06:23→21:19)
[2017-08-07 06:44] LABS: ALBUMIN 1.1 g/dl (3.4-5.0); ANION GAP 10 (8-16); BLOOD UREA NITROGEN 10 mg/dL (7-18); CALCIUM 7.6 mg/dL (8.5-10.1); CHLORIDE 98 mmol/L (98-107); CO2 30 mmol/L (21-32); GLUCOSE,RANDOM 96 mg/dL (74-106); MAGNESIUM 1.8 mg/dL (1.8-2.4); POTASSIUM 4.3 mmol/L (3.5-5.1); SGOT/AST 12 U/L (15-37); SODIUM 138 mmol/L (136-145)
[2017-08-07 06:47] LABS: ALK PHOS 151 U/L (45-117); BILIRUBIN,TOTAL 0.3 mg/dL (0.2-1.0); CREATININE 0.5 mg/dL (0.7-1.3); SGPT/ALT 15 U/L (12-78); TOT PROT 6.4 g/dl (6.4-8.2)
[2017-08-07] MEDS ORDERED: INSULIN DETEMIR 100 UNITS/ML MDV SQ SCH (07:00)
--- NOTE | 2017-08-07 07:43 | PN ---
Progress Note, Physician History of Present Illness: Patient is up for tele isolation transfer. Has been ambulating around unit last night. Tachy from deconditioning. Today feels much improved, no more pleuritic CP. BCx negative to date - Objective Vital Signs: Vital Signs Period Temp Pulse Resp BP Sys/Nolan Pulse Ox Last 24 Hr 97.2 F-98.6 F 73-122 16-22 119-132/73-94 92-96 Additional Findings/Remarks: GEN: AAOx3, NAD, smiling and talking with examiner HEENT: PERRLA, EOMi CV: S1, S2, RRR LUNG: clearer lungs bilaterally ABD: Soft, NT, ND MSK: No edema, no erythema Assessment/Plan 21yo M with DM1, Active Heroin User, Hep C, who originally presented in DKA w/ MRSA bacteremia. Readmitted to the ICU for acute hypoxic RF. Pulm: * # Acute Hypoxic RF - Pt has multiple B/L opacities and pleural effusions, likely from 2/2 septic emboli from MRSA bacteremia from IVDA. No endocardial vegetations on PEG. O2 sat is still low 90s on 3L NC. Effusions have been tapped. Exudative by light's criteria. No organisms isolated from effusions. New CT scan shows no new pulmonary nodules, increased L sided pleural effusion. On Ceftaroline/Telavancin ID: * # MRSA bacteremia - On Ceftaroline/Telavancin, BCx negative so far for two days. Had L forearm abscess drained by surgery. PEG performed showing no vegetations. WBC count has normalized. Afebrile. CRP downtrending. Cardio: * # Sinus Tach - Improved, was likely 2/2 deconditioning, pt is improved now. Monitor on tele Endo: * # IDDM - Poorly controlled. Levemir BID + ISS, Endocrine on board FEN/PPX: No IVF, diabetic diet, Lovenox sqd, PT Dispo: Transfer to tele, order placed Arlette Baez MD PGY1 ICU
--- NOTE | 2017-08-07 08:32 | PN ---
Progress Note, Physician Chief Complaint: more alert and appears clinically improved since last week He has sinus tach with activity, likely due to deconditioned state and anemia and lung infection - Current Medication List Current Medications: Active Medications Acetaminophen (Tylenol -) 650 mg PO Q6H PRN PRN Reason: FEVER Last Admin: 08/06/17 15:54 Dose: 650 mg Buprenorphine/Naloxone (Suboxone 8mg/2mg Sl Film -) 1 each SL DAILY [facility] Clonidine (Catapres -) 0.1 mg PO BID [facility] Last Admin: 08/06/17 21:47 Dose: 0.1 mg Cyclobenzaprine HCl (Flexeril -) 10 mg PO TID [facility] Last Admin: 08/07/17 06:21 Dose: 10 mg Enoxaparin Sodium (Lovenox -) 40 mg SQ DAILY [facility] Fluconazole (Diflucan -) 200 mg PO DAILY [facility] Stop: 08/09/17 13:45 Gabapentin (Neurontin -) 300 mg PO TID [facility] Last Admin: 08/07/17 06:21 Dose: 300 mg Ceftaroline Fosamil 600 mg/ (Dextrose) 100 mls @ 200 mls/hr IVPB TID [facility] PRN Reason: Protocol Last Admin: 08/07/17 06:22 Dose: 200 mls/hr TELAVANCIN HCL 700 mg/ (Dextrose) 292 mls @ 292 mls/hr IVPB DAILY [facility] Insulin Aspart (Novolog Vial Sliding Scale -) 1 vial SQ ACHS [facility] PRN Reason: Protocol Last Admin: 08/07/17 06:23 Dose: Not Given Insulin Detemir (Levemir Vial) 15 units SQ HS [facility] Last Admin: 08/06/17 21:29 Dose: 15 units Insulin Detemir (Levemir Vial) 22 units SQ AM [facility] Last Admin: 08/07/17 06:22 Dose: 22 units Nicotine (Nicoderm Patch -) 21 mg TD DAILY [facility] Nicotine Polacrilex (Nicorette Gum -) 2 mg BUC Q2H PRN PRN Reason: NICOTINE REPLACEMENT RX Ondansetron HCl (Zofran Odt -) 8 mg SL Q6H PRN PRN Reason: NAUSEA AND/OR VOMITING Pantoprazole Sodium (Protonix -) 40 mg PO BID [facility] Last Admin: 08/06/17 21:20 Dose: 40 mg Multivit/Folic Acid/Iron ( Vitamins (Sjr) -) 1 tab PO DAILY [facility] Sucralfate (Carafate Oral Suspension -) 1 gm PO QID [facility] Last Admin: 08/06/17 21:47 Dose: 1 gm Thiamine HCl (Vitamin B1 -) 100 mg PO HS [facility] Last Admin: 08/06/17 21:20 Dose: 100 mg Zolpidem Tartrate (Ambien -) 10 mg PO HS PRN PRN Reason: INSOMNIA - Objective Vital Signs: Vital Signs Temperature 98 F 08/07/17 06:00 Pulse Rate 111 H 08/07/17 06:00 Respiratory Rate 18 08/07/17 06:00 Blood Pressure 126/78 08/07/17 06:00 O2 Sat by Pulse Oximetry (%) 96 08/06/17 20:02 Constitutional: Yes: Calm Eyes: Yes: Conjunctiva Clear Cardiovascular: Yes: Regular Rate and Rhythm Respiratory: Yes: Other (decreased at bases, otherwise clear) Gastrointestinal: Yes: Soft Edema: No Neurological: Yes: Alert, Oriented Labs: CBC, BMP 08/07/17 05:25 08/07/17 05:25 INR, PTT INR 1.02 (0.82-1.09) 07/26/17 05:55 Fibrinogen 788.0 mg/dL (238-498) H 07/27/17 06:15 Microbiology 08/06/17 07:50 Blood - Peripheral Venous Blood Culture - Preliminary NO GROWTH OBTAINED AFTER 24 HOURS, INCUBATION TO CONTINUE FOR 4 DAYS. 08/06/17 07:19 Blood - Peripheral Venous Blood Culture - Preliminary NO GROWTH OBTAINED AFTER 24 HOURS, INCUBATION TO CONTINUE FOR 4 DAYS. 08/05/17 06:00 Blood - Peripheral Venous Blood Culture - Preliminary NO GROWTH OBTAINED AFTER 48 HOURS, INCUBATION TO CONTINUE FOR 3 DAYS. Laboratory Tests 07/24/17 07/28/17 08/07/17 15:00 07:35 05:25 WBC 8.5 Hgb 7.9 L Plt Count 706 H Sodium Potassium Creatinine AST Alkaline Phosphatase Hepatitis C Antibody >11.0 H HIV 1&2 Antibody Screen Negative HIV P24 Antigen Negative 08/07/17 05:25 WBC Hgb Plt Count Sodium 138 Potassium 4.3 Creatinine 0.5 L AST 12 L Alkaline Phosphatase 151 H Hepatitis C Antibody HIV 1&2 Antibody Screen HIV P24 Antigen - ....Imaging EKG: Image Reviewed (NSR, sinus tach) Problem List - Problems (1) Infective endocarditis Code(s): I33.0 - ACUTE AND SUBACUTE INFECTIVE ENDOCARDITIS Qualifiers: Infective endocarditis organism: bacterial (2) Diabetic ketoacidosis Code(s): E13.10 - OTH DIABETES MELLITUS WITH KETOACIDOSIS WITHOUT COMA (3) MRSA (methicillin resistant Staphylococcus aureus) septicemia Code(s): A41.02 - SEPSIS DUE TO METHICILLIN RESISTANT STAPHYLOCOCCUS AUREUS Assessment/Plan IVDA with persistently + bacteremia, evidence of septic emboli and initial clinical concern for Endocarditis REC: PEG showed no echo evidence of endocarditis Sinus tach persists likely due to infection, hypoxia, anemia. WBC, fever all improved; cultures seem to have cleared. Cont abx, supportive care, IVF hydration as needed. Clinically improved from last week.
[2017-08-07] MEDS: SUCRALFATE 1 GM/10 ML UNIT DOSE CUPS PO SCH ×4 (10:08→21:18)
[2017-08-07] MEDS: FLUCONAZOLE 100 MG TABLET (UD) PO SCH (10:09)
[2017-08-07] MEDS: ENOXAPARIN NA (PORCINE) 40 MG/0.4 ML DISP.SYRIN SQ SCH (10:09)
[2017-08-07] MEDS: BUPRENORPHINE/NALOXONE 8 MG/2 MG FILM PACKET SL SCH (10:10)
[2017-08-07] MEDS: PRENATAL VITAMINS W/ FOLIC ACID TABLET (FP) PO SCH (10:10)
--- NOTE | 2017-08-07 10:26 | PN ---
Progress Note, Physician Chief Complaint: Awake, alert. Supine in bed. No c/o pain Afebrile WBC WNL Blood c/s (08/05, 08/06) no growth Tolerating antibiotics - Current Medication List Current Medications: Active Medications Acetaminophen (Tylenol -) 650 mg PO Q6H PRN PRN Reason: FEVER Last Admin: 08/06/17 15:54 Dose: 650 mg Buprenorphine/Naloxone (Suboxone 8mg/2mg Sl Film -) 1 each SL DAILY [facility] Last Admin: 08/07/17 10:10 Dose: 1 each Clonidine (Catapres -) 0.1 mg PO BID [facility] Last Admin: 08/06/17 21:47 Dose: 0.1 mg Cyclobenzaprine HCl (Flexeril -) 10 mg PO TID [facility] Last Admin: 08/07/17 06:21 Dose: 10 mg Enoxaparin Sodium (Lovenox -) 40 mg SQ DAILY [facility] Last Admin: 08/07/17 10:09 Dose: 40 mg Fluconazole (Diflucan -) 200 mg PO DAILY [facility] Stop: 08/09/17 13:45 Last Admin: 08/07/17 10:09 Dose: 200 mg Gabapentin (Neurontin -) 300 mg PO TID [facility] Last Admin: 08/07/17 06:21 Dose: 300 mg Ceftaroline Fosamil 600 mg/ (Dextrose) 100 mls @ 200 mls/hr IVPB TID [facility] PRN Reason: Protocol Last Admin: 08/07/17 06:22 Dose: 200 mls/hr TELAVANCIN HCL 700 mg/ (Dextrose) 292 mls @ 292 mls/hr IVPB DAILY [facility] Insulin Aspart (Novolog Vial Sliding Scale -) 1 vial SQ ACHS [facility] PRN Reason: Protocol Last Admin: 08/07/17 06:23 Dose: Not Given Insulin Detemir (Levemir Vial) 15 units SQ HS [facility] Last Admin: 08/06/17 21:29 Dose: 15 units Insulin Detemir (Levemir Vial) 22 units SQ AM [facility] Last Admin: 08/07/17 06:22 Dose: 22 units Nicotine (Nicoderm Patch -) 21 mg TD DAILY [facility] Nicotine Polacrilex (Nicorette Gum -) 2 mg BUC Q2H PRN PRN Reason: NICOTINE REPLACEMENT RX Ondansetron HCl (Zofran Odt -) 8 mg SL Q6H PRN PRN Reason: NAUSEA AND/OR VOMITING Pantoprazole Sodium (Protonix -) 40 mg PO BID [facility] Last Admin: 08/06/17 21:20 Dose: 40 mg Multivit/Folic Acid/Iron ( Vitamins (Sjr) -) 1 tab PO DAILY [facility] Last Admin: 08/07/17 10:10 Dose: 1 tab Sucralfate (Carafate Oral Suspension -) 1 gm PO QID [facility] Last Admin: 08/07/17 10:08 Dose: 1 gm Thiamine HCl (Vitamin B1 -) 100 mg PO HS [facility] Last Admin: 08/06/17 21:20 Dose: 100 mg Zolpidem Tartrate (Ambien -) 10 mg PO HS PRN PRN Reason: INSOMNIA - Objective Vital Signs: Vital Signs Temperature 98 F 08/07/17 06:00 Pulse Rate 134 H 08/07/17 08:00 Respiratory Rate 17 08/07/17 08:00 Blood Pressure 138/68 08/07/17 08:00 O2 Sat by Pulse Oximetry (%) 96 08/06/17 20:02 Constitutional: Yes: No Distress, Pallor Cardiovascular: Yes: Regular Rate and Rhythm, S1, S2 Respiratory: Yes: CTA Bilaterally Gastrointestinal: Yes: Normal Bowel Sounds, Soft. No: Tenderness Edema: No Labs: CBC, BMP 08/07/17 05:25 08/07/17 05:25 INR, PTT INR 1.02 (0.82-1.09) 07/26/17 05:55 Fibrinogen 788.0 mg/dL (238-498) H 07/27/17 06:15 Assessment/Plan MRSA bacteremia Pleural effusions Chronic liver disease Repeat CT today Continue ceftaroline/ Telavancin
[2017-08-07] MEDS: NICOTINE 21 MG/24 HOURS TOPICAL PATCH TD SCH (10:27)
[2017-08-07] MEDS: cloNIDine HCL 0.1 MG TABLET PO SCH ×2 (10:27→21:09)
[2017-08-07] MEDS: PANTOPRAZOLE 40 MG TABLET (FP) PO SCH ×2 (10:28→21:08)
--- NOTE | 2017-08-07 11:08 | PN ---
Progress Note, Physician Chief Complaint: IVDA with left arm cellulitis and infected thrombophlebitis History of Present Illness: 21yo LHD male PMH type 1 DM, current IV heroin user, Hepatitis C presented with altered mental status and generalized weakness. Complains of some pain in the left arm. CT scan of the chest reveals a presumed septic pneumonia. IR completed a second thoracentesis. He was transferred to ICU for PEG. Left arm is much improved. He has no other complaints. - Current Medication List Current Medications: Active Medications Acetaminophen (Tylenol -) 650 mg PO Q6H PRN PRN Reason: FEVER Last Admin: 08/06/17 15:54 Dose: 650 mg Buprenorphine/Naloxone (Suboxone 8mg/2mg Sl Film -) 1 each SL DAILY [facility] Last Admin: 08/07/17 10:10 Dose: 1 each Clonidine (Catapres -) 0.1 mg PO BID [facility] Last Admin: 08/07/17 10:27 Dose: 0.1 mg Cyclobenzaprine HCl (Flexeril -) 10 mg PO TID [facility] Last Admin: 08/07/17 06:21 Dose: 10 mg Enoxaparin Sodium (Lovenox -) 40 mg SQ DAILY [facility] Last Admin: 08/07/17 10:09 Dose: 40 mg Fluconazole (Diflucan -) 200 mg PO DAILY [facility] Stop: 08/09/17 13:45 Last Admin: 08/07/17 10:09 Dose: 200 mg Gabapentin (Neurontin -) 300 mg PO TID [facility] Last Admin: 08/07/17 06:21 Dose: 300 mg Ceftaroline Fosamil 600 mg/ (Dextrose) 100 mls @ 200 mls/hr IVPB TID [facility] PRN Reason: Protocol Last Admin: 08/07/17 06:22 Dose: 200 mls/hr TELAVANCIN HCL 700 mg/ (Dextrose) 292 mls @ 292 mls/hr IVPB DAILY [facility] Insulin Aspart (Novolog Vial Sliding Scale -) 1 vial SQ ACHS [facility] PRN Reason: Protocol Last Admin: 08/07/17 06:23 Dose: Not Given Insulin Detemir (Levemir Vial) 15 units SQ HS [facility] Last Admin: 08/06/17 21:29 Dose: 15 units Insulin Detemir (Levemir Vial) 22 units SQ AM [facility] Last Admin: 08/07/17 06:22 Dose: 22 units Nicotine (Nicoderm Patch -) 21 mg TD DAILY [facility] Last Admin: 08/07/17 10:27 Dose: 21 mg Nicotine Polacrilex (Nicorette Gum -) 2 mg BUC Q2H PRN PRN Reason: NICOTINE REPLACEMENT RX Ondansetron HCl (Zofran Odt -) 8 mg SL Q6H PRN PRN Reason: NAUSEA AND/OR VOMITING Pantoprazole Sodium (Protonix -) 40 mg PO BID [facility] Last Admin: 08/07/17 10:28 Dose: 40 mg Multivit/Folic Acid/Iron ( Vitamins (Sjr) -) 1 tab PO DAILY [facility] Last Admin: 08/07/17 10:10 Dose: 1 tab Sucralfate (Carafate Oral Suspension -) 1 gm PO QID [facility] Last Admin: 08/07/17 10:08 Dose: 1 gm Thiamine HCl (Vitamin B1 -) 100 mg PO HS [facility] Last Admin: 08/06/17 21:20 Dose: 100 mg Zolpidem Tartrate (Ambien -) 10 mg PO HS PRN PRN Reason: INSOMNIA - Objective Vital Signs: Vital Signs Temperature 98.4 F 08/07/17 10:00 Pulse Rate 115 H 08/07/17 10:00 Respiratory Rate 20 08/07/17 10:00 Blood Pressure 114/69 08/07/17 10:00 O2 Sat by Pulse Oximetry (%) 95 08/07/17 10:00 Vital Signs Period Temp Pulse Resp BP Sys/Nolan Pulse Ox Last 24 Hr 97.2 F-98.6 F 73-134 16-22 114-138/68-94 92-96 Intake & Output 08/06/17 08/07/17 08/07/17 23:59 07:59 15:59 Intake Total 1000 1200 600 Output Total 2000 Balance 1000 -800 600 Weight 146 lb 3 oz Intake: IVPB 200 Oral 1000 1000 600 Output: Urine 2000 Void 2000 Other: Voiding Method Urinal Weight Measurement Method Built in [facility] Constitutional: Yes: Well Nourished, No Distress, Calm, Thin Eyes: Yes: Conjunctiva Clear, EOM Intact HENT: Yes: Atraumatic, Normocephalic Neck: Yes: Supple, Trachea Midline Cardiovascular: Yes: Regular Rate and Rhythm, S1, S2. No: Murmur Respiratory: Yes: Regular, Diminished (left posterolateral) Gastrointestinal: Yes: Normal Bowel Sounds, Soft. No: Tenderness ...Rectal Exam: Yes: Deferred Genitourinary: No: CVA Tenderness - Left, CVA Tenderness - Right Extremities: No: Cool, Cyanosis Edema: No Edema: LUE: Trace Peripheral Pulses WNL: Yes Peripheral Pulses: Left Radial: 2+, Right Radial: 2+ Wound/Incision: Yes: Unapproximated (fibrinous exudate over both incisions). No : Draining, Reddened Neurological: Yes: Alert, Oriented Psychiatric: Yes: Alert, Oriented Labs: CBC, BMP 08/07/17 05:25 08/07/17 05:25 INR, PTT INR 1.02 (0.82-1.09) 07/26/17 05:55 Fibrinogen 788.0 mg/dL (238-498) H 07/27/17 06:15 Microbiology 08/06/17 07:50 Blood Culture - Preliminary Blood - Peripheral Venous NO GROWTH OBTAINED AFTER 24 HOURS, INCUBATION TO CONTINUE FOR 4 DAYS. 08/06/17 07:19 Blood Culture - Preliminary Blood - Peripheral Venous NO GROWTH OBTAINED AFTER 24 HOURS, INCUBATION TO CONTINUE FOR 4 DAYS. 08/05/17 06:00 Blood Culture - Preliminary Blood - Peripheral Venous NO GROWTH OBTAINED AFTER 48 HOURS, INCUBATION TO CONTINUE FOR 3 DAYS. 08/04/17 15:56 Gram Stain - Preliminary Pleural Fluid 08/01/17 10:43 Blood Culture - Final Blood - Peripheral Venous Presumptive Mrsa (Pbp2a Pos) 08/04/17 16:00 AFB Smear Concentration - Preliminary Pleural Fluid Mycobacterial Culture - Preliminary Problem List - Problems (1) MRSA (methicillin resistant Staphylococcus aureus) septicemia Assessment/Plan: 21 yo LHD male with Hepatitis C, DM type 1 in DKA with aggressive left forearm cellulitis, thrombophlebitis, and draining abscess at the site of infecting IV drugs. MRSA septicemia, secondary to injecting heroin with contaminated needles. POD#12 s/p I&D and debridement of infected thrombophlebitis left forearm. The edema in the left arm is largely resolved. WBC now down to 8.5, blood cultures are clearing. Physical therapy follow-up for ROM left elbow Dressing Left forearm/ antecubital fossa Daily Wound Measurement: two linear 2 [id number] yellow stained fibrinous exudate soft tissue, new granulation Dressing instructions: oil emulsion dressing, 4X4 gauze sponges, Aaron wrap IV antibiotics per ID left arm elevation above the heart Can follow up after discharge Code(s): A41.02 - SEPSIS DUE TO METHICILLIN RESISTANT STAPHYLOCOCCUS AUREUS (2) Thrombophlebitis arm Code(s): I80.8 - PHLEBITIS AND THROMBOPHLEBITIS OF OTHER SITES (3) Abscess of forearm Code(s): L02.419 - CUTANEOUS ABSCESS OF LIMB, UNSPECIFIED (4) Opioid dependence with withdrawal Code(s): F11.23 - OPIOID DEPENDENCE WITH WITHDRAWAL (5) Diabetes Code(s): E11.9 - TYPE 2 DIABETES MELLITUS WITHOUT COMPLICATIONS Qualifiers: Diabetes mellitus type: type 1 Diabetes mellitus complication status: with ketoacidosis Diabetes mellitus complication detail: without coma Qualified Code(s): E10.10 - Type 1 diabetes mellitus with ketoacidosis without coma
--- NOTE | 2017-08-07 11:48 | EKG ---
Test Reason : Blood Pressure : / mmHG Vent. Rate : 092 BPM Atrial Rate : 092 BPM P-R Int : 100 ms QRS Dur : 096 ms QT Int : 378 ms P-R-T Axes : 034 059 068 degrees QTc Int : 467 ms SINUS RHYTHM WITH SHORT WA OTHERWISE NORMAL ECG WHEN COMPARED WITH ECG OF 02-AUG-2017 09:52, NO SIGNIFICANT CHANGE WAS FOUND Confirmed by MD Ruben, Chandana ([id number]) on 08/07/2017 11:47:32 AM Referred By: Confirmed By:Chandana Miranda MD
--- NOTE | 2017-08-07 12:53 | PN ---
Teaching Attending Note Name of Resident: Arlette Baez ATTENDING PHYSICIAN STATEMENT I saw and evaluated the patient. I reviewed the resident's note and discussed the case with the resident. I agree with the resident's findings and plan as documented. SUBJECTIVE: Pt seen and examined in the ICU. Feels better today. Chest discomfort improving. CT chest slightly improved. No further fevers. Last blood cultures remain negative. OBJECTIVE: Last Vital Signs Temp Pulse Resp BP Pulse Ox 98.4 F 115 H 20 114/69 95 08/07/17 10:00 08/07/17 10:00 08/07/17 10:00 08/07/17 10:00 08/07/17 10:00 Intake & Output 08/04/17 08/05/17 08/06/17 08/07/17 23:59 23:59 23:59 23:59 Intake Total 3750 2450 2500 1800 Output Total 2700 2800 2600 2000 Balance 1050 -350 -100 -200 Weight 70.76 kg 66.31 kg Gen: NAD at rest Heart: tachycardic, regular Lung: decreased breath sounds at the bases Abd: soft, nontender Ext: no edema CBC, BMP 08/07/17 05:25 08/07/17 05:25 Active Medications Acetaminophen (Tylenol -) 650 mg PO Q6H PRN PRN Reason: FEVER Last Admin: 08/06/17 15:54 Dose: 650 mg Buprenorphine/Naloxone (Suboxone 8mg/2mg Sl Film -) 1 each SL DAILY [facility] Last Admin: 08/07/17 10:10 Dose: 1 each Clonidine (Catapres -) 0.1 mg PO BID [facility] Last Admin: 08/07/17 10:27 Dose: 0.1 mg Cyclobenzaprine HCl (Flexeril -) 10 mg PO TID [facility] Last Admin: 08/07/17 06:21 Dose: 10 mg Enoxaparin Sodium (Lovenox -) 40 mg SQ DAILY [facility] Last Admin: 08/07/17 10:09 Dose: 40 mg Fluconazole (Diflucan -) 200 mg PO DAILY [facility] Stop: 08/09/17 13:45 Last Admin: 08/07/17 10:09 Dose: 200 mg Gabapentin (Neurontin -) 300 mg PO TID [facility] Last Admin: 08/07/17 06:21 Dose: 300 mg Ceftaroline Fosamil 600 mg/ (Dextrose) 100 mls @ 200 mls/hr IVPB TID [facility] PRN Reason: Protocol Last Admin: 08/07/17 06:22 Dose: 200 mls/hr TELAVANCIN HCL 700 mg/ (Dextrose) 292 mls @ 292 mls/hr IVPB DAILY [facility] Insulin Aspart (Novolog Vial Sliding Scale -) 1 vial SQ ACHS [facility] PRN Reason: Protocol Last Admin: 08/07/17 06:23 Dose: Not Given Insulin Detemir (Levemir Vial) 15 units SQ HS [facility] Last Admin: 08/06/17 21:29 Dose: 15 units Insulin Detemir (Levemir Vial) 22 units SQ AM [facility] Last Admin: 08/07/17 06:22 Dose: 22 units Nicotine (Nicoderm Patch -) 21 mg TD DAILY [facility] Last Admin: 08/07/17 10:27 Dose: 21 mg Nicotine Polacrilex (Nicorette Gum -) 2 mg BUC Q2H PRN PRN Reason: NICOTINE REPLACEMENT RX Ondansetron HCl (Zofran Odt -) 8 mg SL Q6H PRN PRN Reason: NAUSEA AND/OR VOMITING Pantoprazole Sodium (Protonix -) 40 mg PO BID [facility] Last Admin: 08/07/17 10:28 Dose: 40 mg Multivit/Folic Acid/Iron ( Vitamins (Sjr) -) 1 tab PO DAILY [facility] Last Admin: 08/07/17 10:10 Dose: 1 tab Sucralfate (Carafate Oral Suspension -) 1 gm PO QID [facility] Last Admin: 08/07/17 10:08 Dose: 1 gm Thiamine HCl (Vitamin B1 -) 100 mg PO HS [facility] Last Admin: 08/06/17 21:20 Dose: 100 mg Zolpidem Tartrate (Ambien -) 10 mg PO HS PRN PRN Reason: INSOMNIA ASSESSMENT AND PLAN: Persistent MRSA Bacteremia/LUE Abscess s/p debridement Lung Nodules likely Septic Emboli Diabetic Ketoacidosis resolved Septic Shock resolving Thrombocytopenia improved Acute Kidney Injury improved Lactic Acidosis resolved +Troponins likely Demand Ischemia IVDU/Polysubstance Abuse Anemia - continue antibiotics - f/u pending cultures until cleared - 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
[2017-08-07] MEDS: TELAVANCIN HCL IVPB SCH (13:32)
[2017-08-07] MEDS: DEXTROSE 5% IVPB SCH (13:32)
[2017-08-07] MEDS: WATER IVPB SCH (13:32)
--- NOTE | 2017-08-07 19:42 | PN ---
Progress Note, Physician History of Present Illness: Pt feeling better - Current Medication List Current Medications: Active Medications Acetaminophen (Tylenol -) 650 mg PO Q6H PRN PRN Reason: FEVER Last Admin: 08/06/17 15:54 Dose: 650 mg Buprenorphine/Naloxone (Suboxone 8mg/2mg Sl Film -) 1 each SL DAILY [facility] Last Admin: 08/07/17 10:10 Dose: 1 each Clonidine (Catapres -) 0.1 mg PO BID [facility] Last Admin: 08/07/17 10:27 Dose: 0.1 mg Cyclobenzaprine HCl (Flexeril -) 10 mg PO TID [facility] Last Admin: 08/07/17 13:34 Dose: 10 mg Enoxaparin Sodium (Lovenox -) 40 mg SQ DAILY [facility] Last Admin: 08/07/17 10:09 Dose: 40 mg Fluconazole (Diflucan -) 200 mg PO DAILY [facility] Stop: 08/09/17 13:45 Last Admin: 08/07/17 10:09 Dose: 200 mg Gabapentin (Neurontin -) 300 mg PO TID [facility] Last Admin: 08/07/17 13:35 Dose: 300 mg Ceftaroline Fosamil 600 mg/ (Dextrose) 100 mls @ 200 mls/hr IVPB TID [facility] PRN Reason: Protocol Last Admin: 08/07/17 13:33 Dose: 200 mls/hr TELAVANCIN HCL 700 mg/ (Dextrose) 292 mls @ 292 mls/hr IVPB DAILY [facility] Last Admin: 08/07/17 13:32 Dose: 292 mls/hr Insulin Aspart (Novolog Vial Sliding Scale -) 1 vial SQ ACHS [facility] PRN Reason: Protocol Last Admin: 08/07/17 17:39 Dose: Not Given Insulin Detemir (Levemir Vial) 15 units SQ HS [facility] Last Admin: 08/06/17 21:29 Dose: 15 units Insulin Detemir (Levemir Vial) 22 units SQ AM [facility] Last Admin: 08/07/17 06:22 Dose: 22 units Nicotine (Nicoderm Patch -) 21 mg TD DAILY [facility] Last Admin: 08/07/17 10:27 Dose: 21 mg Nicotine Polacrilex (Nicorette Gum -) 2 mg BUC Q2H PRN PRN Reason: NICOTINE REPLACEMENT RX Ondansetron HCl (Zofran Odt -) 8 mg SL Q6H PRN PRN Reason: NAUSEA AND/OR VOMITING Pantoprazole Sodium (Protonix -) 40 mg PO BID [facility] Last Admin: 08/07/17 10:28 Dose: 40 mg Multivit/Folic Acid/Iron ( Vitamins (Sjr) -) 1 tab PO DAILY [facility] Last Admin: 08/07/17 10:10 Dose: 1 tab Sucralfate (Carafate Oral Suspension -) 1 gm PO QID [facility] Last Admin: 08/07/17 17:40 Dose: 1 gm Thiamine HCl (Vitamin B1 -) 100 mg PO HS [facility] Last Admin: 08/06/17 21:20 Dose: 100 mg Zolpidem Tartrate (Ambien -) 10 mg PO HS PRN PRN Reason: INSOMNIA - Objective Vital Signs: Vital Signs Temperature 100.2 F H 08/07/17 17:40 Pulse Rate 105 H 08/07/17 16:00 Respiratory Rate 14 08/07/17 17:40 Blood Pressure 127/92 08/07/17 17:40 O2 Sat by Pulse Oximetry (%) 95 08/07/17 10:00 Neck: Yes: WNL, Supple Cardiovascular: Yes: Tachycardia Respiratory: Yes: Diminished Gastrointestinal: Yes: WNL, Normal Bowel Sounds, Soft Extremities: Yes: Other (Lt forearm w/ dressing) Labs: CBC, BMP 08/07/17 05:25 08/07/17 05:25 INR, PTT INR 1.02 (0.82-1.09) 07/26/17 05:55 Fibrinogen 788.0 mg/dL (238-498) H 07/27/17 06:15 Problem List - Problems (1) Sepsis Assessment/Plan: S/P I&D/debridement/fasciotomy Lt forearm MRSA Bacteremia/supprative thrombophlebitis Repeat BC remain negative IV telavancin/ceftaroline CT scan chest: Increased lt pleural effusion PEG was done and did not show any vegetations Code(s): A41.9 - SEPSIS, UNSPECIFIED ORGANISM (2) Diabetic ketoacidosis Assessment/Plan: Cont levemir Cont sliding scale w/ coverge Code(s): E13.10 - OTH DIABETES MELLITUS WITH KETOACIDOSIS WITHOUT COMA (3) Thrombocytosis Code(s): D47.3 - ESSENTIAL (HEMORRHAGIC) THROMBOCYTHEMIA (4) Anemia Code(s): D64.9 - ANEMIA, UNSPECIFIED (5) Opioid dependence with withdrawal Code(s): F11.23 - OPIOID DEPENDENCE WITH WITHDRAWAL
[2017-08-07] MEDS: THIAMINE HCL 100 MG TABLET (FP) PO SCH (21:09)
[2017-08-07] MEDS: ZOLPIDEM TARTRATE 5 MG TABLET PO PRN (21:24)
--- NOTE | 2017-08-07 21:32 | PN ---
Progress Note, Physician - Current Medication List Current Medications: Active Medications Acetaminophen (Tylenol -) 650 mg PO Q6H PRN PRN Reason: FEVER Last Admin: 08/06/17 15:54 Dose: 650 mg Buprenorphine/Naloxone (Suboxone 8mg/2mg Sl Film -) 1 each SL DAILY [facility] Last Admin: 08/07/17 10:10 Dose: 1 each Clonidine (Catapres -) 0.1 mg PO BID [facility] Last Admin: 08/07/17 21:09 Dose: 0.1 mg Cyclobenzaprine HCl (Flexeril -) 10 mg PO TID [facility] Last Admin: 08/07/17 21:09 Dose: 10 mg Enoxaparin Sodium (Lovenox -) 40 mg SQ DAILY [facility] Last Admin: 08/07/17 10:09 Dose: 40 mg Fluconazole (Diflucan -) 200 mg PO DAILY [facility] Stop: 08/09/17 13:45 Last Admin: 08/07/17 10:09 Dose: 200 mg Gabapentin (Neurontin -) 300 mg PO TID [facility] Last Admin: 08/07/17 21:09 Dose: 300 mg Ceftaroline Fosamil 600 mg/ (Dextrose) 100 mls @ 200 mls/hr IVPB TID [facility] PRN Reason: Protocol Last Admin: 08/07/17 21:07 Dose: 200 mls/hr TELAVANCIN HCL 700 mg/ (Dextrose) 292 mls @ 292 mls/hr IVPB DAILY [facility] Last Admin: 08/07/17 13:32 Dose: 292 mls/hr Insulin Aspart (Novolog Vial Sliding Scale -) 1 vial SQ ACHS [facility] PRN Reason: Protocol Last Admin: 08/07/17 21:19 Dose: 8 units Insulin Detemir (Levemir Vial) 15 units SQ HS [facility] Last Admin: 08/07/17 21:18 Dose: 15 units Insulin Detemir (Levemir Vial) 22 units SQ AM [facility] Last Admin: 08/07/17 06:22 Dose: 22 units Nicotine (Nicoderm Patch -) 21 mg TD DAILY [facility] Last Admin: 08/07/17 10:27 Dose: 21 mg Nicotine Polacrilex (Nicorette Gum -) 2 mg BUC Q2H PRN PRN Reason: NICOTINE REPLACEMENT RX Ondansetron HCl (Zofran Odt -) 8 mg SL Q6H PRN PRN Reason: NAUSEA AND/OR VOMITING Pantoprazole Sodium (Protonix -) 40 mg PO BID [facility] Last Admin: 08/07/17 21:08 Dose: 40 mg Multivit/Folic Acid/Iron ( Vitamins (Sjr) -) 1 tab PO DAILY [facility] Last Admin: 08/07/17 10:10 Dose: 1 tab Sucralfate (Carafate Oral Suspension -) 1 gm PO QID [facility] Last Admin: 08/07/17 21:18 Dose: 1 gm Thiamine HCl (Vitamin B1 -) 100 mg PO HS [facility] Last Admin: 08/07/17 21:09 Dose: 100 mg Zolpidem Tartrate (Ambien -) 10 mg PO HS PRN PRN Reason: INSOMNIA Last Admin: 08/07/17 21:24 Dose: 10 mg - Objective Vital Signs: Vital Signs Temperature 100.2 F H 08/07/17 17:40 Pulse Rate 105 H 08/07/17 16:00 Respiratory Rate 14 08/07/17 17:40 Blood Pressure 127/92 08/07/17 17:40 O2 Sat by Pulse Oximetry (%) 95 08/07/17 19:54 Labs: CBC, BMP 08/07/17 05:25 08/07/17 05:25 INR, PTT INR 1.02 (0.82-1.09) 07/26/17 05:55 Fibrinogen 788.0 mg/dL (238-498) H 07/27/17 06:15 Problem List - Problems (1) Sepsis Code(s): A41.9 - SEPSIS, UNSPECIFIED ORGANISM (2) Diabetic ketoacidosis Code(s): E13.10 - OTH DIABETES MELLITUS WITH KETOACIDOSIS WITHOUT COMA (3) Thrombocytosis Code(s): D47.3 - ESSENTIAL (HEMORRHAGIC) THROMBOCYTHEMIA (4) Anemia Code(s): D64.9 - ANEMIA, UNSPECIFIED (5) Opioid dependence with withdrawal Code(s): F11.23 - OPIOID DEPENDENCE WITH WITHDRAWAL
[2017-08-08] MEDS ORDERED: HEMOQUE TEST 1 EACH EACH ONE (05:08)
[2017-08-08] MEDS: CEFTAROLINE FOSAMIL ACETATE 600 MG in DEXTROSE 5%-WATER - 100 ML IVPB SCH ×3 (05:14→21:56)
[2017-08-08] MEDS: GABAPENTIN 300 MG CAPSULE (FP) PO SCH ×3 (05:14→21:52)
[2017-08-08] MEDS: CYCLOBENZAPRINE HCL 10 MG TABLET (FP) PO SCH ×3 (05:14→21:52)
[2017-08-08] MEDS: INSULIN DETEMIR 100 UNITS/ML MDV SQ SCH ×2 (06:28→21:53)
[2017-08-08] MEDS: INSULIN SLIDING SCALE (NOVOLOG) 1 VIAL SQ SCH ×4 (06:28→21:18)
[2017-08-08 06:34] LABS: HEMATOCRIT 24.8 % (35.4-49); HEMOGLOBIN 8.1 GM/dL (11.7-16.9); MCH 30.4 pg (25.7-33.7); MCHC 32.8 g/dl (32.0-35.9); MEAN CELL VOLUME 92.9 fl (80-96); MEAN PLT VOLUME 8.2 fl (7.5-11.1); PLATELET COUNT 678 K/MM3 (134-434); RBC 2.67 M/mm3 (4.00-5.60); RDW 16.4 % (11.9-15.9); WHITE BLOOD COUNT 8.1 K/mm3 (4.0-10.0)
--- NOTE | 2017-08-08 06:54 | PN ---
Progress Note, Physician Chief Complaint: ID Reaching important clinical mile stone here Finally blood culture have been sterile a first since 05/22 Chest discomfort improved No fever and WBC now normal. Televancin and Ceftaroline continue - Current Medication List Current Medications: Active Medications Acetaminophen (Tylenol -) 650 mg PO Q6H PRN PRN Reason: FEVER Last Admin: 08/06/17 15:54 Dose: 650 mg Buprenorphine/Naloxone (Suboxone 8mg/2mg Sl Film -) 1 each SL DAILY [facility] Last Admin: 08/07/17 10:10 Dose: 1 each Clonidine (Catapres -) 0.1 mg PO BID [facility] Last Admin: 08/07/17 21:09 Dose: 0.1 mg Cyclobenzaprine HCl (Flexeril -) 10 mg PO TID [facility] Last Admin: 08/08/17 05:14 Dose: 10 mg Enoxaparin Sodium (Lovenox -) 40 mg SQ DAILY [facility] Last Admin: 08/07/17 10:09 Dose: 40 mg Fluconazole (Diflucan -) 200 mg PO DAILY [facility] Stop: 08/09/17 13:45 Last Admin: 08/07/17 10:09 Dose: 200 mg Gabapentin (Neurontin -) 300 mg PO TID [facility] Last Admin: 08/08/17 05:14 Dose: 300 mg Ceftaroline Fosamil 600 mg/ (Dextrose) 100 mls @ 200 mls/hr IVPB TID [facility] PRN Reason: Protocol Last Admin: 08/08/17 05:14 Dose: 200 mls/hr TELAVANCIN HCL 700 mg/ (Dextrose) 292 mls @ 292 mls/hr IVPB DAILY [facility] Last Admin: 08/07/17 13:32 Dose: 292 mls/hr Insulin Aspart (Novolog Vial Sliding Scale -) 1 vial SQ ACHS [facility] PRN Reason: Protocol Last Admin: 08/08/17 06:28 Dose: 2 units Insulin Detemir (Levemir Vial) 15 units SQ HS [facility] Last Admin: 08/07/17 21:18 Dose: 15 units Insulin Detemir (Levemir Vial) 22 units SQ AM [facility] Last Admin: 08/08/17 06:28 Dose: 22 units Nicotine (Nicoderm Patch -) 21 mg TD DAILY [facility] Last Admin: 08/07/17 10:27 Dose: 21 mg Nicotine Polacrilex (Nicorette Gum -) 2 mg BUC Q2H PRN PRN Reason: NICOTINE REPLACEMENT RX Ondansetron HCl (Zofran Odt -) 8 mg SL Q6H PRN PRN Reason: NAUSEA AND/OR VOMITING Pantoprazole Sodium (Protonix -) 40 mg PO BID [facility] Last Admin: 08/07/17 21:08 Dose: 40 mg Multivit/Folic Acid/Iron ( Vitamins (Sjr) -) 1 tab PO DAILY [facility] Last Admin: 08/07/17 10:10 Dose: 1 tab Sucralfate (Carafate Oral Suspension -) 1 gm PO QID [facility] Last Admin: 08/07/17 21:18 Dose: 1 gm Thiamine HCl (Vitamin B1 -) 100 mg PO HS [facility] Last Admin: 08/07/17 21:09 Dose: 100 mg Zolpidem Tartrate (Ambien -) 10 mg PO HS PRN PRN Reason: INSOMNIA Last Admin: 08/07/17 21:24 Dose: 10 mg - Objective Vital Signs: Vital Signs Temperature 97.7 F 08/08/17 05:25 Pulse Rate 108 H 08/08/17 05:25 Respiratory Rate 16 08/08/17 05:25 Blood Pressure 126/86 08/08/17 05:25 O2 Sat by Pulse Oximetry (%) 95 08/07/17 19:54 Labs: INR, PTT INR 1.02 (0.82-1.09) 07/26/17 05:55 Fibrinogen 788.0 mg/dL (238-498) H 07/27/17 06:15 Assessment/Plan Microbiology 08/06/17 07:50 Blood - Peripheral Venous Blood Culture - Preliminary NO GROWTH OBTAINED AFTER 24 HOURS, INCUBATION TO CONTINUE FOR 4 DAYS. 08/06/17 07:19 Blood - Peripheral Venous Blood Culture - Preliminary NO GROWTH OBTAINED AFTER 24 HOURS, INCUBATION TO CONTINUE FOR 4 DAYS. 08/05/17 06:00 Blood - Peripheral Venous Blood Culture - Preliminary NO GROWTH OBTAINED AFTER 72 HOURS, INCUBATION TO CONTINUE FOR 2 DAYS. Laboratory Tests 07/25/17 08/04/17 08/07/17 05:10 06:15 05:25 WBC 8.5 RBC 2.56 L Hct 23.9 L Plt Count 706 H BUN Creatinine C-Reactive Protein 29.5 H 8.0 H 08/07/17 05:25 WBC RBC Hct Plt Count BUN 10 Creatinine 0.5 L C-Reactive Protein Assessment MRSA bacteremia clearing. Concern now is large possibly loculated pleural effusion This needs to be drained Consult with thoracic previously requested Recommendations seen for IR drainage if possible. Platelets high reactive ? effusion related Plan Antibiotics and IR drainage attempt ( ?loculated need for VAT)
[2017-08-08 07:01] LABS: CHLORIDE 97 mmol/L (98-107); POTASSIUM 4.2 mmol/L (3.5-5.1); SODIUM 136 mmol/L (136-145)
[2017-08-08 07:04] LABS: ALBUMIN 1.2 g/dl (3.4-5.0); ALK PHOS 147 U/L (45-117); ANION GAP 8 (8-16); BILIRUBIN,TOTAL 0.3 mg/dL (0.2-1.0); BLOOD UREA NITROGEN 10 mg/dL (7-18); CALCIUM 7.4 mg/dL (8.5-10.1); CO2 31 mmol/L (21-32); CREATININE 0.6 mg/dL (0.7-1.3); GLUCOSE,RANDOM 137 mg/dL (74-106); MAGNESIUM 1.5 mg/dL (1.8-2.4); SGOT/AST 13 U/L (15-37); SGPT/ALT 14 U/L (12-78); TOT PROT 6.9 g/dl (6.4-8.2)
[2017-08-08] MEDS ORDERED: MAGNESIUM SULF 50% (8.12 MEQ/2 ML-1 GM VIAL) IVPB ONE (07:45)
--- NOTE | 2017-08-08 07:53 | PN ---
Progress Note, Physician History of Present Illness: Overnight: No acute events overnight. VSS Today: No complaints. Ambulating. No pleuritic CP. Less tachy. Still up for med/surger transfer, isolation bed. Will schedule L pleural drainage for tmrw - Objective Vital Signs: Vital Signs Period Temp Pulse Resp BP Sys/Nolan Pulse Ox Last 24 Hr 97.7 F-100.2 F 93-134 14-20 114-138/68-95 95-95 Additional Findings/Remarks: GEN: AAOx3, NAD, Lying comfortably HEENT: PERRLA, EOMi CV: S1, S2, RRR LUNG: No change from yesterday, decraesed breath sounds on left ABD: Soft, NT, ND MSK: No edema, no erythema NEURO: CN 2-12 grossly intact. No facial droop. Assessment/Plan 21yo M with DM1, Active Heroin User, Hep C, who originally presented in DKA w/ MRSA bacteremia. Readmitted to the ICU for acute hypoxic RF. Pulm: * # Acute Hypoxic RF - Pt has multiple B/L opacities and pleural effusions, likely from 2/2 septic emboli from MRSA bacteremia from IVDA. No endocardial vegetations on PEG. O2 sat is still low 90s on 3L NC. Effusions have been tapped. Exudative by light's criteria. No organisms isolated from effusions. New CT scan shows no new pulmonary nodules, increased L sided pleural effusion. Will order IR pleural drainage for L side. Hold Lovenox tmrw AM, Continues on Ceftaroline/Telavancin ID: * # MRSA bacteremia - On Ceftaroline/Telavancin, BCx continues to be negative for 3 days. Had L forearm abscess drained by surgery. PEG performed showing no vegetations. WBC count has normalized. Afebrile. CRP downtrending. Cardio: * # Sinus Tach - Improved, was likely 2/2 deconditioning, pt is improved now. Monitor on tele Endo: * # IDDM - Poorly controlled. Levemir BID + ISS, Endocrine on board FEN/PPX: No IVF, diabetic diet, Lovenox sqd (on hold tmrw for possible procedure ), PT Dispo: Transfer to med/surg khloe Baez MD PGY1 ICU
[2017-08-08] MEDS ORDERED: PT OWN MED DRAWER 7, Y5N ONE (08:30)
--- NOTE | 2017-08-08 08:37 | PN ---
Progress Note, Physician Chief Complaint: Cultures remain negative He is feeling better TELE: NSR, sinus tach - Current Medication List Current Medications: Active Medications Acetaminophen (Tylenol -) 650 mg PO Q6H PRN PRN Reason: FEVER Last Admin: 08/06/17 15:54 Dose: 650 mg Buprenorphine/Naloxone (Suboxone 8mg/2mg Sl Film -) 1 each SL DAILY [facility] Last Admin: 08/07/17 10:10 Dose: 1 each Clonidine (Catapres -) 0.1 mg PO BID [facility] Last Admin: 08/07/17 21:09 Dose: 0.1 mg Cyclobenzaprine HCl (Flexeril -) 10 mg PO TID [facility] Last Admin: 08/08/17 05:14 Dose: 10 mg Enoxaparin Sodium (Lovenox -) 40 mg SQ DAILY [facility] Last Admin: 08/07/17 10:09 Dose: 40 mg Fluconazole (Diflucan -) 200 mg PO DAILY [facility] Stop: 08/09/17 13:45 Last Admin: 08/07/17 10:09 Dose: 200 mg Gabapentin (Neurontin -) 300 mg PO TID [facility] Last Admin: 08/08/17 05:14 Dose: 300 mg Ceftaroline Fosamil 600 mg/ (Dextrose) 100 mls @ 200 mls/hr IVPB TID [facility] PRN Reason: Protocol Last Admin: 08/08/17 05:14 Dose: 200 mls/hr TELAVANCIN HCL 700 mg/ (Dextrose) 292 mls @ 292 mls/hr IVPB DAILY [facility] Last Admin: 08/07/17 13:32 Dose: 292 mls/hr Magnesium Sulfate/Dextrose (Magnesium 1gm/D5w -) 1 gm in 100 mls @ 100 mls/hr IVPB ONCE ONE Stop: 08/08/17 10:59 Insulin Aspart (Novolog Vial Sliding Scale -) 1 vial SQ ACHS [facility] PRN Reason: Protocol Last Admin: 08/08/17 06:28 Dose: 2 units Insulin Detemir (Levemir Vial) 15 units SQ HS [facility] Last Admin: 08/07/17 21:18 Dose: 15 units Insulin Detemir (Levemir Vial) 22 units SQ AM [facility] Last Admin: 08/08/17 06:28 Dose: 22 units Nicotine (Nicoderm Patch -) 21 mg TD DAILY [facility] Last Admin: 08/07/17 10:27 Dose: 21 mg Nicotine Polacrilex (Nicorette Gum -) 2 mg BUC Q2H PRN PRN Reason: NICOTINE REPLACEMENT RX Ondansetron HCl (Zofran Odt -) 8 mg SL Q6H PRN PRN Reason: NAUSEA AND/OR VOMITING Pantoprazole Sodium (Protonix -) 40 mg PO BID [facility] Last Admin: 08/07/17 21:08 Dose: 40 mg Multivit/Folic Acid/Iron ( Vitamins (Sjr) -) 1 tab PO DAILY [facility] Last Admin: 08/07/17 10:10 Dose: 1 tab Sucralfate (Carafate Oral Suspension -) 1 gm PO QID [facility] Last Admin: 08/07/17 21:18 Dose: 1 gm Thiamine HCl (Vitamin B1 -) 100 mg PO HS [facility] Last Admin: 08/07/17 21:09 Dose: 100 mg Zolpidem Tartrate (Ambien -) 10 mg PO HS PRN PRN Reason: INSOMNIA Last Admin: 08/07/17 21:24 Dose: 10 mg - Objective Vital Signs: Vital Signs Temperature 97.7 F 08/08/17 05:25 Pulse Rate 108 H 08/08/17 05:25 Respiratory Rate 16 08/08/17 05:25 Blood Pressure 126/86 08/08/17 05:25 O2 Sat by Pulse Oximetry (%) 95 08/07/17 19:54 Constitutional: Yes: No Distress Eyes: Yes: Conjunctiva Clear Cardiovascular: Yes: Regular Rate and Rhythm (No murmurs) Respiratory: Yes: Other (decreased breath sounds at bases.) Gastrointestinal: Yes: Soft Edema: No Neurological: Yes: Alert, Oriented ...Motor Strength: WNL Labs: CBC, BMP 08/08/17 05:35 08/08/17 05:35 INR, PTT INR 1.02 (0.82-1.09) 07/26/17 05:55 Fibrinogen 788.0 mg/dL (238-498) H 07/27/17 06:15 Microbiology 08/06/17 07:50 Blood - Peripheral Venous Blood Culture - Preliminary NO GROWTH OBTAINED AFTER 48 HOURS, INCUBATION TO CONTINUE FOR 3 DAYS. 08/06/17 07:19 Blood - Peripheral Venous Blood Culture - Preliminary NO GROWTH OBTAINED AFTER 48 HOURS, INCUBATION TO CONTINUE FOR 3 DAYS. 08/05/17 06:00 Blood - Peripheral Venous Blood Culture - Preliminary NO GROWTH OBTAINED AFTER 72 HOURS, INCUBATION TO CONTINUE FOR 2 DAYS. Laboratory Tests 07/27/17 08/08/17 08/08/17 06:15 05:35 05:35 WBC 8.1 Hgb 8.1 L Plt Count 678 H Fibrinogen 788.0 H Sodium 136 Potassium 4.2 Creatinine 0.6 L Calcium 7.4 L Magnesium 1.5 L AST 13 L - ....Imaging EKG: Image Reviewed Problem List - Problems (1) Infective endocarditis Code(s): I33.0 - ACUTE AND SUBACUTE INFECTIVE ENDOCARDITIS Qualifiers: Infective endocarditis organism: bacterial (2) Diabetic ketoacidosis Code(s): E13.10 - OTH DIABETES MELLITUS WITH KETOACIDOSIS WITHOUT COMA (3) MRSA (methicillin resistant Staphylococcus aureus) septicemia Code(s): A41.02 - SEPSIS DUE TO METHICILLIN RESISTANT STAPHYLOCOCCUS AUREUS Assessment/Plan Assessment/Plan IVDA with persistently + bacteremia, evidence of septic emboli and initial clinical concern for Endocarditis, PEG Negative. REC: Clinically improved, but now with loculated pleural effusion Sinus tach persists likely due to infection, hypoxia, anemia. WBC, fever all improved; cultures have cleared. Cont abx, supportive care, IVF hydration as needed. Planned for IR guided drainage loculated pleural effusion.
[2017-08-08] MEDS: PANTOPRAZOLE 40 MG TABLET (FP) PO SCH ×2 (09:15→21:52)
[2017-08-08] MEDS: cloNIDine HCL 0.1 MG TABLET PO SCH ×2 (09:15→21:52)
[2017-08-08] MEDS: FLUCONAZOLE 100 MG TABLET (UD) PO SCH (09:15)
[2017-08-08] MEDS: ENOXAPARIN NA (PORCINE) 40 MG/0.4 ML DISP.SYRIN SQ SCH (09:15)
[2017-08-08] MEDS: NICOTINE 21 MG/24 HOURS TOPICAL PATCH TD SCH (09:15)
[2017-08-08] MEDS: BUPRENORPHINE/NALOXONE 8 MG/2 MG FILM PACKET SL SCH (09:16)
[2017-08-08] MEDS: SUCRALFATE 1 GM/10 ML UNIT DOSE CUPS PO SCH ×4 (09:16→21:51)
[2017-08-08] MEDS ORDERED: MAGNESIUM 1GM/D5W - 1 GM/100 ML IVPB IVPB ONE (10:00)
--- NOTE | 2017-08-08 10:02 | PN ---
Progress Note, Physician Chief Complaint: IVDA with left arm cellulitis and infected thrombophlebitis History of Present Illness: 21yo LHD male PMH type 1 DM, current IV heroin user, Hepatitis C presented with altered mental status and generalized weakness. Complains of some pain in the left arm. CT scan of the chest reveals a presumed septic pneumonia. Left arm is much improved. He has no other complaints. - Current Medication List Current Medications: Active Medications Acetaminophen (Tylenol -) 650 mg PO Q6H PRN PRN Reason: FEVER Last Admin: 08/06/17 15:54 Dose: 650 mg Buprenorphine/Naloxone (Suboxone 8mg/2mg Sl Film -) 1 each SL DAILY [facility] Last Admin: 08/08/17 09:16 Dose: 1 each Clonidine (Catapres -) 0.1 mg PO BID [facility] Last Admin: 08/08/17 09:15 Dose: 0.1 mg Cyclobenzaprine HCl (Flexeril -) 10 mg PO TID [facility] Last Admin: 08/08/17 05:14 Dose: 10 mg Enoxaparin Sodium (Lovenox -) 40 mg SQ DAILY [facility] Last Admin: 08/08/17 09:15 Dose: 40 mg Fluconazole (Diflucan -) 200 mg PO DAILY [facility] Stop: 08/09/17 13:45 Last Admin: 08/08/17 09:15 Dose: 200 mg Gabapentin (Neurontin -) 300 mg PO TID [facility] Last Admin: 08/08/17 05:14 Dose: 300 mg Ceftaroline Fosamil 600 mg/ (Dextrose) 100 mls @ 200 mls/hr IVPB TID [facility] PRN Reason: Protocol Last Admin: 08/08/17 05:14 Dose: 200 mls/hr TELAVANCIN HCL 700 mg/ (Dextrose) 292 mls @ 292 mls/hr IVPB DAILY [facility] Last Admin: 08/07/17 13:32 Dose: 292 mls/hr Magnesium Sulfate/Dextrose (Magnesium 1gm/D5w -) 1 gm in 100 mls @ 100 mls/hr IVPB ONCE ONE Stop: 08/08/17 10:59 Last Admin: 08/08/17 09:14 Dose: 100 mls/hr Insulin Aspart (Novolog Vial Sliding Scale -) 1 vial SQ ACHS [facility] PRN Reason: Protocol Last Admin: 08/08/17 06:28 Dose: 2 units Insulin Detemir (Levemir Vial) 15 units SQ HS [facility] Last Admin: 08/07/17 21:18 Dose: 15 units Insulin Detemir (Levemir Vial) 22 units SQ AM [facility] Last Admin: 08/08/17 06:28 Dose: 22 units Nicotine (Nicoderm Patch -) 21 mg TD DAILY [facility] Last Admin: 08/08/17 09:15 Dose: 21 mg Nicotine Polacrilex (Nicorette Gum -) 2 mg BUC Q2H PRN PRN Reason: NICOTINE REPLACEMENT RX Ondansetron HCl (Zofran Odt -) 8 mg SL Q6H PRN PRN Reason: NAUSEA AND/OR VOMITING Pantoprazole Sodium (Protonix -) 40 mg PO BID [facility] Last Admin: 08/08/17 09:15 Dose: 40 mg Multivit/Folic Acid/Iron ( Vitamins (Sjr) -) 1 tab PO DAILY [facility] Last Admin: 08/07/17 10:10 Dose: 1 tab Sucralfate (Carafate Oral Suspension -) 1 gm PO QID [facility] Last Admin: 08/08/17 09:16 Dose: 1 gm Thiamine HCl (Vitamin B1 -) 100 mg PO HS [facility] Last Admin: 08/07/17 21:09 Dose: 100 mg Zolpidem Tartrate (Ambien -) 10 mg PO HS PRN PRN Reason: INSOMNIA Last Admin: 08/07/17 21:24 Dose: 10 mg - Objective Vital Signs: Vital Signs Temperature 97.7 F 08/08/17 05:25 Pulse Rate 108 H 08/08/17 05:25 Respiratory Rate 16 08/08/17 05:25 Blood Pressure 126/86 08/08/17 05:25 O2 Sat by Pulse Oximetry (%) 95 08/07/17 19:54 Vital Signs Period Temp Pulse Resp BP Sys/Nolan Pulse Ox Last 24 Hr 97.7 F-100.2 F 93-108 14-19 121-129/78-95 95-95 Constitutional: Yes: Well Nourished, No Distress, Calm, Thin Eyes: Yes: Conjunctiva Clear, EOM Intact HENT: Yes: Atraumatic, Normocephalic Neck: Yes: Supple, Trachea Midline Cardiovascular: Yes: Regular Rate and Rhythm, S1, S2 Respiratory: Yes: Regular, CTA Bilaterally Gastrointestinal: Yes: Normal Bowel Sounds, Soft. No: Tenderness ...Rectal Exam: Yes: Deferred Genitourinary: No: CVA Tenderness - Left, Urethral Discharge Extremities: No: Cool, Cyanosis Edema: Yes Edema: LUE: Trace Peripheral Pulses WNL: Yes Peripheral Pulses: Left Radial: 2+, Right Radial: 2+ Integumentary: No: Jaundice, Rash Neurological: Yes: Alert, Oriented Psychiatric: Yes: Alert, Oriented Labs: CBC, BMP 08/08/17 05:35 08/08/17 05:35 INR, PTT INR 1.02 (0.82-1.09) 07/26/17 05:55 Fibrinogen 788.0 mg/dL (238-498) H 07/27/17 06:15 Problem List - Problems (1) MRSA (methicillin resistant Staphylococcus aureus) septicemia Assessment/Plan: 21 yo LHD male with Hepatitis C, DM type 1 in DKA with aggressive left forearm cellulitis, thrombophlebitis, and draining abscess at the site of infecting IV drugs. MRSA septicemia, secondary to injecting heroin with contaminated needles. POD#13 s/p I&D and debridement of infected thrombophlebitis left forearm. The edema in the left arm is largely resolved. WBC now down to 8.5, blood cultures are clearing. Physical therapy follow-up for ROM left elbow extension Dressing Left forearm/ antecubital fossa daily Wound Measurement: two linear [id number], yellow stained fibrinous exudate soft tissue, new granulation Dressing instructions: oil emulsion dressing, 4X4 gauze sponges, Aaron wrap IV antibiotics per ID left arm elevation above the heart Can follow up after discharge Code(s): A41.02 - SEPSIS DUE TO METHICILLIN RESISTANT STAPHYLOCOCCUS AUREUS (2) Thrombophlebitis arm Code(s): I80.8 - PHLEBITIS AND THROMBOPHLEBITIS OF OTHER SITES (3) Abscess of forearm Code(s): L02.419 - CUTANEOUS ABSCESS OF LIMB, UNSPECIFIED (4) Opioid dependence with withdrawal Code(s): F11.23 - OPIOID DEPENDENCE WITH WITHDRAWAL (5) Diabetes Code(s): E11.9 - TYPE 2 DIABETES MELLITUS WITHOUT COMPLICATIONS Qualifiers: Diabetes mellitus type: type 1 Diabetes mellitus complication status: with ketoacidosis Diabetes mellitus complication detail: without coma Qualified Code(s): E10.10 - Type 1 diabetes mellitus with ketoacidosis without coma
[2017-08-08] MEDS: TELAVANCIN HCL IVPB SCH (11:21)
[2017-08-08] MEDS: PRENATAL VITAMINS W/ FOLIC ACID TABLET (FP) PO SCH (11:21)
[2017-08-08] MEDS: WATER IVPB SCH (11:21)
[2017-08-08] MEDS: DEXTROSE 5% IVPB SCH (11:21)
--- NOTE | 2017-08-08 12:04 | PN ---
Teaching Attending Note Name of Resident: Arlette Baez ATTENDING PHYSICIAN STATEMENT I saw and evaluated the patient. I reviewed the resident's note and discussed the case with the resident. I agree with the resident's findings and plan as documented. SUBJECTIVE: Pt seen and examined in the ICU. Continues to clinically improve. No fevers recorded, cultures remain negative. OBJECTIVE: Last Vital Signs Temp Pulse Resp BP Pulse Ox 97.7 F 108 H 16 126/86 95 08/08/17 10:00 08/08/17 10:00 08/08/17 10:00 08/08/17 10:00 08/08/17 10:00 Intake & Output 08/05/17 08/06/17 08/07/17 08/08/17 23:59 23:59 23:59 23:59 Intake Total 2450 2500 5200 1470 Output Total 2800 2600 4900 950 Balance -350 -100 300 520 Weight 66.31 kg 65.516 kg Gen: NAD at rest Heart: tachcardic, regular Lung: decreased breath sounds at the bases Abd: soft, nontender Ext: no edema CBC, BMP 08/08/17 05:35 08/08/17 05:35 Active Medications Acetaminophen (Tylenol -) 650 mg PO Q6H PRN PRN Reason: FEVER Last Admin: 08/06/17 15:54 Dose: 650 mg Buprenorphine/Naloxone (Suboxone 8mg/2mg Sl Film -) 1 each SL DAILY [facility] Last Admin: 08/08/17 09:16 Dose: 1 each Clonidine (Catapres -) 0.1 mg PO BID [facility] [place] Last Admin: 08/08/17 09:15 Dose: 0.1 mg Cyclobenzaprine HCl (Flexeril -) 10 mg PO TID [facility] [place] Last Admin: 08/08/17 05:14 Dose: 10 mg Enoxaparin Sodium (Lovenox -) 40 mg SQ DAILY [facility] [place] Last Admin: 08/08/17 09:15 Dose: 40 mg Fluconazole (Diflucan -) 200 mg PO DAILY [facility] [place] Stop: 08/09/17 13:45 Last Admin: 08/08/17 09:15 Dose: 200 mg Gabapentin (Neurontin -) 300 mg PO TID [facility] [place] Last Admin: 08/08/17 05:14 Dose: 300 mg Ceftaroline Fosamil 600 mg/ (Dextrose) 100 mls @ 200 mls/hr IVPB TID [facility] [place] PRN Reason: Protocol Last Admin: 08/08/17 05:14 Dose: 200 mls/hr TELAVANCIN HCL 700 mg/ (Dextrose) 292 mls @ 292 mls/hr IVPB DAILY [facility] [place] Last Admin: 08/08/17 11:21 Dose: 292 mls/hr Insulin Aspart (Novolog Vial Sliding Scale -) 1 vial SQ ACHS [facility] [place] PRN Reason: Protocol Last Admin: 08/08/17 06:28 Dose: 2 units Insulin Detemir (Levemir Vial) 15 units SQ HS [facility] [place] Last Admin: 08/07/17 21:18 Dose: 15 units Insulin Detemir (Levemir Vial) 22 units SQ AM [facility] [place] Last Admin: 08/08/17 06:28 Dose: 22 units Nicotine (Nicoderm Patch -) 21 mg TD DAILY [facility] [place] Last Admin: 08/08/17 09:15 Dose: 21 mg Nicotine Polacrilex (Nicorette Gum -) 2 mg BUC Q2H PRN PRN Reason: NICOTINE REPLACEMENT RX Ondansetron HCl (Zofran Odt -) 8 mg SL Q6H PRN PRN Reason: NAUSEA AND/OR VOMITING Pantoprazole Sodium (Protonix -) 40 mg PO BID [facility] [place] Last Admin: 08/08/17 09:15 Dose: 40 mg Multivit/Folic Acid/Iron ( Vitamins (Sjr) -) 1 tab PO DAILY [facility] [place] Last Admin: 08/08/17 11:21 Dose: 1 tab Sucralfate (Carafate Oral Suspension -) 1 gm PO QID [facility] [place] Last Admin: 08/08/17 09:16 Dose: 1 gm Thiamine HCl (Vitamin B1 -) 100 mg PO HS [facility] [place] Last Admin: 08/07/17 21:09 Dose: 100 mg Zolpidem Tartrate (Ambien -) 10 mg PO HS PRN PRN Reason: INSOMNIA Last Admin: 08/07/17 21:24 Dose: 10 mg ASSESSMENT AND PLAN: Persistent MRSA Bacteremia/LUE Abscess s/p debridement Lung Nodules likely Septic Emboli Diabetic Ketoacidosis resolved Septic Shock resolving Thrombocytopenia improved Acute Kidney Injury improved Lactic Acidosis resolved +Troponins likely Demand Ischemia IVDU/Polysubstance Abuse Anemia - continue antibiotics - will order ultrasound guided left sided pigtail placement - will need PICC line for chcf antibiotics - monitor urine output, creatinine - O2 to keep SpO2 >90% - monitor H/H - protonix - glucose control - DVT prophylaxis - can monitor on floor
[2017-08-08] MEDS: ACETAMINOPHEN 325 MG TABLET (FP) PO PRN (17:48)
[2017-08-08] MEDS: ZOLPIDEM TARTRATE 5 MG TABLET PO PRN (21:52)
[2017-08-08] MEDS: THIAMINE HCL 100 MG TABLET (FP) PO SCH (21:52)
--- NOTE | 2017-08-08 21:54 | PN ---
Progress Note, Physician History of Present Illness: No new change - Current Medication List Current Medications: Active Medications Acetaminophen (Tylenol -) 650 mg PO Q6H PRN PRN Reason: FEVER Last Admin: 08/08/17 17:48 Dose: 650 mg Buprenorphine/Naloxone (Suboxone 8mg/2mg Sl Film -) 1 each SL DAILY [facility] Last Admin: 08/08/17 09:16 Dose: 1 each Clonidine (Catapres -) 0.1 mg PO BID [facility] Last Admin: 08/08/17 09:15 Dose: 0.1 mg Cyclobenzaprine HCl (Flexeril -) 10 mg PO TID [facility] Last Admin: 08/08/17 14:24 Dose: 10 mg Enoxaparin Sodium (Lovenox -) 40 mg SQ DAILY [facility] Last Admin: 08/08/17 09:15 Dose: 40 mg Fluconazole (Diflucan -) 200 mg PO DAILY [facility] Stop: 08/09/17 13:45 Last Admin: 08/08/17 09:15 Dose: 200 mg Gabapentin (Neurontin -) 300 mg PO TID [facility] Last Admin: 08/08/17 14:24 Dose: 300 mg Ceftaroline Fosamil 600 mg/ (Dextrose) 100 mls @ 200 mls/hr IVPB TID [facility] PRN Reason: Protocol Last Admin: 08/08/17 14:30 Dose: 200 mls/hr TELAVANCIN HCL 700 mg/ (Dextrose) 292 mls @ 292 mls/hr IVPB DAILY [facility] Last Admin: 08/08/17 11:21 Dose: 292 mls/hr Insulin Aspart (Novolog Vial Sliding Scale -) 1 vial SQ ACHS [facility] PRN Reason: Protocol Last Admin: 08/08/17 21:18 Dose: Not Given Insulin Detemir (Levemir Vial) 15 units SQ HS [facility] Last Admin: 08/07/17 21:18 Dose: 15 units Insulin Detemir (Levemir Vial) 22 units SQ AM [facility] Last Admin: 08/08/17 06:28 Dose: 22 units Nicotine (Nicoderm Patch -) 21 mg TD DAILY [facility] Last Admin: 08/08/17 09:15 Dose: 21 mg Nicotine Polacrilex (Nicorette Gum -) 2 mg BUC Q2H PRN PRN Reason: NICOTINE REPLACEMENT RX Ondansetron HCl (Zofran Odt -) 8 mg SL Q6H PRN PRN Reason: NAUSEA AND/OR VOMITING Pantoprazole Sodium (Protonix -) 40 mg PO BID [facility] Last Admin: 08/08/17 09:15 Dose: 40 mg Multivit/Folic Acid/Iron ( Vitamins (Sjr) -) 1 tab PO DAILY [facility] Last Admin: 08/08/17 11:21 Dose: 1 tab Sucralfate (Carafate Oral Suspension -) 1 gm PO QID [facility] Last Admin: 08/08/17 17:48 Dose: 1 gm Thiamine HCl (Vitamin B1 -) 100 mg PO HS [facility] Last Admin: 08/07/17 21:09 Dose: 100 mg Zolpidem Tartrate (Ambien -) 10 mg PO HS PRN PRN Reason: INSOMNIA Last Admin: 08/07/17 21:24 Dose: 10 mg - Objective Vital Signs: Vital Signs Temperature 98.5 F 08/08/17 18:00 Pulse Rate 103 H 08/08/17 18:00 Respiratory Rate 17 08/08/17 20:31 Blood Pressure 124/90 08/08/17 18:00 O2 Sat by Pulse Oximetry (%) 95 08/08/17 20:44 Neck: Yes: WNL, Supple Cardiovascular: Yes: WNL, Regular Rate and Rhythm Respiratory: Yes: WNL, Regular, CTA Bilaterally Gastrointestinal: Yes: WNL, Normal Bowel Sounds, Soft Extremities: Yes: Other (LUE w/ dressing) Labs: CBC, BMP 08/08/17 05:35 08/08/17 05:35 INR, PTT INR 1.02 (0.82-1.09) 07/26/17 05:55 Fibrinogen 788.0 mg/dL (238-498) H 07/27/17 06:15 Problem List - Problems (1) Sepsis Assessment/Plan: S/P I&D/debridement/fasciotomy Lt forearm MRSA Bacteremia/supprative thrombophlebitis Repeat BC remain negative IV telavancin/ceftaroline as per ID PEG was done and did not show any vegetations CT scan showed loculated lt pleural effusion Pt to have drainage by IR in am Code(s): A41.9 - SEPSIS, UNSPECIFIED ORGANISM (2) Diabetic ketoacidosis Assessment/Plan: Cont levemir Cont sliding scale w/ coverge Code(s): E13.10 - OTH DIABETES MELLITUS WITH KETOACIDOSIS WITHOUT COMA (3) Thrombocytosis Assessment/Plan: Reactive in nature Probably due to sepsis Code(s): D47.3 - ESSENTIAL (HEMORRHAGIC) THROMBOCYTHEMIA (4) Anemia Assessment/Plan: H/H stable Pt has been transfused 1 unit PRBC's Code(s): D64.9 - ANEMIA, UNSPECIFIED (5) Opioid dependence with withdrawal Code(s): F11.23 - OPIOID DEPENDENCE WITH WITHDRAWAL
[2017-08-09 06:14] LABS: HEMATOCRIT 24.1 % (35.4-49); HEMOGLOBIN 8.2 GM/dL (11.7-16.9); MCH 31.2 pg (25.7-33.7); MCHC 33.9 g/dl (32.0-35.9); MEAN CELL VOLUME 91.9 fl (80-96); MEAN PLT VOLUME 8.1 fl (7.5-11.1); PLATELET COUNT 664 K/MM3 (134-434); RBC 2.63 M/mm3 (4.00-5.60); RDW 16.9 % (11.9-15.9); WHITE BLOOD COUNT 7.9 K/mm3 (4.0-10.0)
[2017-08-09] MEDS ORDERED: PT OWN MED DRAWER 7, Y5N ONE ×3 (06:16→21:17)
[2017-08-09] MEDS: CYCLOBENZAPRINE HCL 10 MG TABLET (FP) PO SCH ×3 (06:24→21:20)
[2017-08-09] MEDS: CEFTAROLINE FOSAMIL ACETATE 600 MG in DEXTROSE 5%-WATER - 100 ML IVPB SCH ×3 (06:24→21:20)
[2017-08-09] MEDS: GABAPENTIN 300 MG CAPSULE (FP) PO SCH ×3 (06:24→21:20)
[2017-08-09] MEDS: INSULIN SLIDING SCALE (NOVOLOG) 1 VIAL SQ SCH ×4 (06:30→21:22)
[2017-08-09 06:40] LABS: ALBUMIN 1.3 g/dl (3.4-5.0); ANION GAP 10 (8-16); BLOOD UREA NITROGEN 12 mg/dL (7-18); CHLORIDE 96 mmol/L (98-107); CO2 30 mmol/L (21-32); GLUCOSE,RANDOM 146 mg/dL (74-106); PHOSPHOROUS 4.7 mg/dL (2.5-4.9); POTASSIUM 4.3 mmol/L (3.5-5.1); SGOT/AST 13 U/L (15-37); SODIUM 136 mmol/L (136-145)
[2017-08-09 06:45] LABS: ALK PHOS 137 U/L (45-117); BILIRUBIN,TOTAL 0.3 mg/dL (0.2-1.0); CALCIUM 7.6 mg/dL (8.5-10.1); CREATININE 0.6 mg/dL (0.7-1.3); MAGNESIUM 1.7 mg/dL (1.8-2.4); SGPT/ALT 15 U/L (12-78); TOT PROT 6.9 g/dl (6.4-8.2)
[2017-08-09] MEDS: INSULIN DETEMIR 100 UNITS/ML MDV SQ SCH ×2 (07:00→21:22)
--- NOTE | 2017-08-09 07:18 | PN ---
Progress Note, Physician Chief Complaint: ID NO fever Asymptomatic Televancin & Ceftaroline - Current Medication List Current Medications: Active Medications Acetaminophen (Tylenol -) 650 mg PO Q6H PRN PRN Reason: FEVER Last Admin: 08/08/17 17:48 Dose: 650 mg Buprenorphine/Naloxone (Suboxone 8mg/2mg Sl Film -) 1 each SL DAILY [facility] Last Admin: 08/08/17 09:16 Dose: 1 each Clonidine (Catapres -) 0.1 mg PO BID [facility] Last Admin: 08/08/17 21:52 Dose: 0.1 mg Cyclobenzaprine HCl (Flexeril -) 10 mg PO TID [facility] Last Admin: 08/09/17 06:24 Dose: 10 mg Enoxaparin Sodium (Lovenox -) 40 mg SQ DAILY [facility] Last Admin: 08/08/17 09:15 Dose: 40 mg Fluconazole (Diflucan -) 200 mg PO DAILY [facility] Stop: 08/09/17 13:45 Last Admin: 08/08/17 09:15 Dose: 200 mg Gabapentin (Neurontin -) 300 mg PO TID [facility] Last Admin: 08/09/17 06:24 Dose: 300 mg Ceftaroline Fosamil 600 mg/ (Dextrose) 100 mls @ 200 mls/hr IVPB TID [facility] PRN Reason: Protocol Last Admin: 08/09/17 06:24 Dose: 200 mls/hr TELAVANCIN HCL 700 mg/ (Dextrose) 292 mls @ 292 mls/hr IVPB DAILY [facility] Last Admin: 08/08/17 11:21 Dose: 292 mls/hr Insulin Aspart (Novolog Vial Sliding Scale -) 1 vial SQ ACHS [facility] PRN Reason: Protocol Last Admin: 08/09/17 06:30 Dose: Not Given Insulin Detemir (Levemir Vial) 15 units SQ HS [facility] Last Admin: 08/08/17 21:53 Dose: 15 units Insulin Detemir (Levemir Vial) 22 units SQ AM [facility] Last Admin: 08/08/17 06:28 Dose: 22 units Nicotine (Nicoderm Patch -) 21 mg TD DAILY [facility] Last Admin: 08/08/17 09:15 Dose: 21 mg Nicotine Polacrilex (Nicorette Gum -) 2 mg BUC Q2H PRN PRN Reason: NICOTINE REPLACEMENT RX Ondansetron HCl (Zofran Odt -) 8 mg SL Q6H PRN PRN Reason: NAUSEA AND/OR VOMITING Pantoprazole Sodium (Protonix -) 40 mg PO BID [facility] Last Admin: 08/08/17 21:52 Dose: 40 mg Multivit/Folic Acid/Iron ( Vitamins (Sjr) -) 1 tab PO DAILY [facility] Last Admin: 08/08/17 11:21 Dose: 1 tab Sucralfate (Carafate Oral Suspension -) 1 gm PO QID [facility] Last Admin: 08/08/17 21:51 Dose: 1 gm Thiamine HCl (Vitamin B1 -) 100 mg PO HS [facility] Last Admin: 08/08/17 21:52 Dose: 100 mg Zolpidem Tartrate (Ambien -) 10 mg PO HS PRN PRN Reason: INSOMNIA Last Admin: 08/08/17 21:52 Dose: 10 mg - Objective Vital Signs: Vital Signs Temperature 98.2 F 08/09/17 02:00 Pulse Rate 107 H 08/09/17 06:00 Respiratory Rate 19 08/09/17 06:00 Blood Pressure 127/89 08/09/17 06:00 O2 Sat by Pulse Oximetry (%) 95 08/08/17 20:44 Labs: CBC, BMP 08/09/17 05:20 08/09/17 05:20 INR, PTT INR 1.02 (0.82-1.09) 07/26/17 05:55 Fibrinogen 788.0 mg/dL (238-498) H 07/27/17 06:15 Assessment/Plan Microbiology 08/06/17 07:50 Blood - Peripheral Venous Blood Culture - Preliminary NO GROWTH OBTAINED AFTER 48 HOURS, INCUBATION TO CONTINUE FOR 3 DAYS. 08/06/17 07:19 Blood - Peripheral Venous Blood Culture - Preliminary NO GROWTH OBTAINED AFTER 48 HOURS, INCUBATION TO CONTINUE FOR 3 DAYS. 08/05/17 06:00 Blood - Peripheral Venous Blood Culture - Preliminary NO GROWTH OBTAINED AFTER 96 HOURS, INCUBATION TO CONTINUE FOR 1 DAYS. Laboratory Tests 08/09/17 08/09/17 05:20 05:20 WBC 7.9 RBC 2.63 L Hct 24.1 L Plt Count 664 H BUN 12 Assessment MRSA bacteremia Suppurative thrombophlebitis post surgery Bilateral pleural effusions History of IVDA IDDM Chronic liver disease Plan Attempt to place pigtail catheter left chest IR Continue current antibiotics Bob SANDERSON
[2017-08-09] MEDS ORDERED: MAGNESIUM 1GM/D5W 100ML - 100 ML IVPB IVPB ONE (07:42)
--- NOTE | 2017-08-09 08:46 | PN ---
Progress Note, Physician History of Present Illness: Overnight: No acute events overnight. VSS. NPO since midnight. Today: No complaints. Still awaiting med/surg transfer. Had IR guided pigtail catheter placement today by Dr Massey. - Objective Vital Signs: Vital Signs Period Temp Pulse Resp BP Sys/Nolan Pulse Ox Last 24 Hr 97.7 F-98.5 F 94-108 16-19 124-130/82-95 95-95 Additional Findings/Remarks: GEN: AAOx3, NAD, Smiling and talking with examiner HEENT: PERRLA, EOMi CV: S1, S2, RRR LUNG: Similar to yesterday, decreased lung sounds on L side ABD: Soft, NT, ND, normoactive BS MSK: No edema, no erythema NEURO: CN 2-12 intact. Assessment/Plan 21yo M with DM1, Active Heroin User, Hep C, who originally presented in DKA w/ MRSA bacteremia. Readmitted to the ICU for acute hypoxic RF. Pulm: * # Acute Hypoxic RF - Pt has multiple B/L opacities and pleural effusions, likely from 2/2 septic emboli from MRSA bacteremia from IVDA. No endocardial vegetations on PEG. O2 sat 93-96 on NC. Effusions have been tapped. Exudative by light's criteria. No organisms isolated, however L effusion has grown. Pt going for pigtail catheter placement of L side today. Lovenox held since AM. NPO New CT scan shows no new pulmonary nodules, increased L sided pleural effusion. Will order IR pleural drainage for L side. Hold Lovenox tmrw AM, Continues on Ceftaroline/Telavancin ID: * # MRSA bacteremia - Pt is clearing on Ceftaroline/Telavancin, BCx continues to be negative for 4 days. Had L forearm abscess drained by surgery. PEG performed showing no vegetations. WBC count has normalized. Afebrile. CRP downtrending. Cardio: * # Sinus Tach - Improved, was likely 2/2 deconditioning, pt is improved now. Monitor on tele Endo: * # IDDM - Poorly controlled. Levemir BID + ISS, Endocrine on board FEN/PPX: No IVF, diabetic diet, lovenox, PT Dispo: Transfer to med/surg khloe Baez MD PGY1 ICU
--- NOTE | 2017-08-09 09:58 | PN ---
Progress Note, Physician Chief Complaint: IVDA with left arm cellulitis and infected thrombophlebitis History of Present Illness: 21yo LHD male PMH type 1 DM, current IV heroin user, Hepatitis C presented with altered mental status and generalized weakness. Complains of some pain in the left arm. CT scan of the chest reveals a presumed septic pneumonia. Left arm is much improved. He has no other complaints. - Current Medication List Current Medications: Active Medications Acetaminophen (Tylenol -) 650 mg PO Q6H PRN PRN Reason: FEVER Last Admin: 08/08/17 17:48 Dose: 650 mg Buprenorphine/Naloxone (Suboxone 8mg/2mg Sl Film -) 1 each SL DAILY [facility] Last Admin: 08/08/17 09:16 Dose: 1 each Clonidine (Catapres -) 0.1 mg PO BID [facility] Last Admin: 08/08/17 21:52 Dose: 0.1 mg Cyclobenzaprine HCl (Flexeril -) 10 mg PO TID [facility] Last Admin: 08/09/17 06:24 Dose: 10 mg Enoxaparin Sodium (Lovenox -) 40 mg SQ DAILY [facility] Last Admin: 08/08/17 09:15 Dose: 40 mg Fluconazole (Diflucan -) 200 mg PO DAILY [facility] Stop: 08/09/17 13:45 Last Admin: 08/08/17 09:15 Dose: 200 mg Gabapentin (Neurontin -) 300 mg PO TID [facility] Last Admin: 08/09/17 06:24 Dose: 300 mg Ceftaroline Fosamil 600 mg/ (Dextrose) 100 mls @ 200 mls/hr IVPB TID [facility] PRN Reason: Protocol Last Admin: 08/09/17 06:24 Dose: 200 mls/hr TELAVANCIN HCL 700 mg/ (Dextrose) 292 mls @ 292 mls/hr IVPB DAILY [facility] Last Admin: 08/08/17 11:21 Dose: 292 mls/hr Insulin Aspart (Novolog Vial Sliding Scale -) 1 vial SQ ACHS [facility] PRN Reason: Protocol Last Admin: 08/09/17 06:30 Dose: Not Given Insulin Detemir (Levemir Vial) 15 units SQ HS [facility] Last Admin: 08/08/17 21:53 Dose: 15 units Insulin Detemir (Levemir Vial) 22 units SQ AM [facility] Last Admin: 02/28/18 06:28 Dose: 22 units Nicotine (Nicoderm Patch -) 21 mg TD DAILY [facility] Last Admin: 08/08/17 09:15 Dose: 21 mg Nicotine Polacrilex (Nicorette Gum -) 2 mg BUC Q2H PRN PRN Reason: NICOTINE REPLACEMENT RX Ondansetron HCl (Zofran Odt -) 8 mg SL Q6H PRN PRN Reason: NAUSEA AND/OR VOMITING Pantoprazole Sodium (Protonix -) 40 mg PO BID [facility] Last Admin: 08/08/17 21:52 Dose: 40 mg Multivit/Folic Acid/Iron ( Vitamins (Sjr) -) 1 tab PO DAILY [facility] Last Admin: 08/08/17 11:21 Dose: 1 tab Sucralfate (Carafate Oral Suspension -) 1 gm PO QID [facility] Last Admin: 08/08/17 21:51 Dose: 1 gm Thiamine HCl (Vitamin B1 -) 100 mg PO HS [facility] Last Admin: 08/08/17 21:52 Dose: 100 mg Zolpidem Tartrate (Ambien -) 10 mg PO HS PRN PRN Reason: INSOMNIA Last Admin: 08/08/17 21:52 Dose: 10 mg - Objective Vital Signs: Vital Signs Temperature 98.2 F 08/09/17 02:00 Pulse Rate 107 H 08/09/17 06:00 Respiratory Rate 19 08/09/17 06:00 Blood Pressure 127/89 08/09/17 06:00 O2 Sat by Pulse Oximetry (%) 95 08/08/17 20:44 Vital Signs Period Temp Pulse Resp BP Sys/Nolan Pulse Ox Last 24 Hr 97.7 F-98.5 F 94-108 16-19 124-130/82-95 95-95 Constitutional: Yes: No Distress, Calm, Obese Eyes: Yes: Conjunctiva Clear, EOM Intact HENT: Yes: Atraumatic, Normocephalic Neck: Yes: Supple, Trachea Midline Cardiovascular: Yes: Regular Rate and Rhythm, S1, S2 Respiratory: Yes: Regular, CTA Bilaterally Gastrointestinal: Yes: Normal Bowel Sounds, Soft, Abdomen, Obese. No: Distention, Tenderness, Tenderness, Epigastrium, Tenderness, Rebound Genitourinary: No: CVA Tenderness - Left, CVA Tenderness - Right Extremities: No: Cool, Cyanosis Edema: Yes Edema: LUE: Trace Peripheral Pulses WNL: Yes Peripheral Pulses: Left Radial: 2+, Right Radial: 2+ Wound/Incision: Yes: Clean/Dry, Sonja Intact, Unapproximated. No: Draining, Reddened Neurological: Yes: Alert, Oriented Psychiatric: Yes: Alert, Oriented Labs: CBC, BMP 08/09/17 05:20 08/09/17 05:20 INR, PTT INR 1.02 (0.82-1.09) 07/26/17 05:55 Fibrinogen 788.0 mg/dL (238-498) H 07/27/17 06:15 Problem List - Problems (1) MRSA (methicillin resistant Staphylococcus aureus) septicemia Assessment/Plan: 21 yo LHD male with Hepatitis C, DM type 1 in DKA with aggressive left forearm cellulitis, thrombophlebitis, and draining abscess at the site of infecting IV drugs. MRSA septicemia, secondary to injecting heroin with contaminated needles. POD#14 s/p I&D and debridement of infected thrombophlebitis left forearm. The edema in the left arm is largely resolved. WBC normal range, blood cultures are clearing. Physical therapy follow-up for ROM left elbow extension Dressing Left forearm/ antecubital fossa daily Wound Measurement: two linear [id number], yellow stained fibrinous exudate soft tissue, new granulation Dressing instructions: oil emulsion dressing, 4X4 gauze sponges, Aaron wrap IV antibiotics per ID left arm elevation above the heart Can follow up after discharge This patient is critically ill. Time spent reviewing chart, examining patient, talking with providers and/or family and documentation is 35 minutes Code(s): A41.02 - SEPSIS DUE TO METHICILLIN RESISTANT STAPHYLOCOCCUS AUREUS (2) Thrombophlebitis arm Code(s): I80.8 - PHLEBITIS AND THROMBOPHLEBITIS OF OTHER SITES (3) Abscess of forearm Code(s): L02.419 - CUTANEOUS ABSCESS OF LIMB, UNSPECIFIED (4) Opioid dependence with withdrawal Code(s): F11.23 - OPIOID DEPENDENCE WITH WITHDRAWAL (5) Diabetes Code(s): E11.9 - TYPE 2 DIABETES MELLITUS WITHOUT COMPLICATIONS Qualifiers: Diabetes mellitus type: type 1 Diabetes mellitus complication status: with ketoacidosis Diabetes mellitus complication detail: without coma Qualified Code(s): E10.10 - Type 1 diabetes mellitus with ketoacidosis without coma
[2017-08-09] MEDS: WATER IVPB SCH (10:19)
[2017-08-09] MEDS: TELAVANCIN HCL IVPB SCH (10:19)
[2017-08-09] MEDS: DEXTROSE 5% IVPB SCH (10:19)
[2017-08-09] MEDS: SUCRALFATE 1 GM/10 ML UNIT DOSE CUPS PO SCH ×4 (10:20→21:23)
[2017-08-09] MEDS: cloNIDine HCL 0.1 MG TABLET PO SCH ×2 (10:20→21:20)
[2017-08-09] MEDS: FLUCONAZOLE 100 MG TABLET (UD) PO SCH (10:20)
[2017-08-09] MEDS: PRENATAL VITAMINS W/ FOLIC ACID TABLET (FP) PO SCH (10:21)
[2017-08-09] MEDS: PANTOPRAZOLE 40 MG TABLET (FP) PO SCH ×2 (10:23→21:20)
[2017-08-09] MEDS: BUPRENORPHINE/NALOXONE 8 MG/2 MG FILM PACKET SL SCH (10:24)
[2017-08-09] MEDS: NICOTINE 21 MG/24 HOURS TOPICAL PATCH TD SCH (10:32)
--- NOTE | 2017-08-09 11:05 | PN ---
Progress Note, Physician History of Present Illness: seen and examined today, states he is feeling better today. - Current Medication List Current Medications: Active Medications Acetaminophen (Tylenol -) 650 mg PO Q6H PRN PRN Reason: FEVER Last Admin: 08/08/17 17:48 Dose: 650 mg Buprenorphine/Naloxone (Suboxone 8mg/2mg Sl Film -) 1 each SL DAILY [facility] Last Admin: 08/09/17 10:24 Dose: 1 each Clonidine (Catapres -) 0.1 mg PO BID [facility] Last Admin: 08/09/17 10:20 Dose: 0.1 mg Cyclobenzaprine HCl (Flexeril -) 10 mg PO TID [facility] Last Admin: 08/09/17 06:24 Dose: 10 mg Enoxaparin Sodium (Lovenox -) 40 mg SQ DAILY [facility] Last Admin: 08/08/17 09:15 Dose: 40 mg Fluconazole (Diflucan -) 200 mg PO DAILY [facility] Stop: 08/09/17 13:45 Last Admin: 08/09/17 10:20 Dose: 200 mg Gabapentin (Neurontin -) 300 mg PO TID [facility] Last Admin: 08/09/17 06:24 Dose: 300 mg Ceftaroline Fosamil 600 mg/ (Dextrose) 100 mls @ 200 mls/hr IVPB TID [facility] PRN Reason: Protocol Last Admin: 08/09/17 06:24 Dose: 200 mls/hr TELAVANCIN HCL 700 mg/ (Dextrose) 292 mls @ 292 mls/hr IVPB DAILY [facility] Last Admin: 08/09/17 10:19 Dose: 292 mls/hr Insulin Aspart (Novolog Vial Sliding Scale -) 1 vial SQ ACHS [facility] PRN Reason: Protocol Last Admin: 08/09/17 06:30 Dose: Not Given Insulin Detemir (Levemir Vial) 15 units SQ HS [facility] Last Admin: 08/08/17 21:53 Dose: 15 units Insulin Detemir (Levemir Vial) 22 units SQ AM [facility] Last Admin: 08/08/17 06:28 Dose: 22 units Nicotine (Nicoderm Patch -) 21 mg TD DAILY [facility] Last Admin: 08/09/17 10:32 Dose: 21 mg Nicotine Polacrilex (Nicorette Gum -) 2 mg BUC Q2H PRN PRN Reason: NICOTINE REPLACEMENT RX Ondansetron HCl (Zofran Odt -) 8 mg SL Q6H PRN PRN Reason: NAUSEA AND/OR VOMITING Pantoprazole Sodium (Protonix -) 40 mg PO BID [facility] Last Admin: 08/09/17 10:23 Dose: 40 mg Multivit/Folic Acid/Iron ( Vitamins (Sjr) -) 1 tab PO DAILY [facility] Last Admin: 08/09/17 10:21 Dose: 1 tab Sucralfate (Carafate Oral Suspension -) 1 gm PO QID [facility] Last Admin: 08/09/17 10:20 Dose: 1 gm Thiamine HCl (Vitamin B1 -) 100 mg PO HS [facility] Last Admin: 08/08/17 21:52 Dose: 100 mg Zolpidem Tartrate (Ambien -) 10 mg PO HS PRN PRN Reason: INSOMNIA Last Admin: 08/08/17 21:52 Dose: 10 mg - Objective Vital Signs: Vital Signs Temperature 99.0 F 08/09/17 10:00 Pulse Rate 102 H 08/09/17 08:00 Respiratory Rate 19 08/09/17 08:00 Blood Pressure 110/73 08/09/17 08:00 O2 Sat by Pulse Oximetry (%) 95 08/08/17 20:44 Constitutional: Yes: No Distress, Calm Eyes: Yes: Conjunctiva Clear, EOM Intact HENT: Yes: Atraumatic, Normocephalic Neck: Yes: Supple, Trachea Midline Cardiovascular: Yes: Tachycardia, S1, S2. No: Regular Rate and Rhythm, Bradycardia, Pulse Irregular, Bruit, JVD, Gallop, Murmur, Rub, S3, S4, Varicosities Respiratory: Yes: Regular, Diminished, Rhonchi. No: Rales, SOB, Wheezes Gastrointestinal: Yes: Normal Bowel Sounds, Soft. No: Distention, Tenderness Edema: No Peripheral Pulses WNL: Yes Neurological: Yes: Alert, Oriented Psychiatric: Yes: Alert, Oriented Labs: CBC, BMP 08/09/17 05:20 08/09/17 05:20 INR, PTT INR 1.02 (0.82-1.09) 07/26/17 05:55 Fibrinogen 788.0 mg/dL (238-498) H 07/27/17 06:15 - ....Imaging Chest X-ray: Report Reviewed, Image Reviewed EKG: Report Reviewed, Image Reviewed Other: Report Reviewed, Image Reviewed (tele-sinus tach, no arrhythmias) Assessment/Plan IVDA with persistently + bacteremia with MRSA, evidence of septic emboli and initial clinical concern for Endocarditis, PEG Negative. REC: Clinically improved, but now with loculated pleural effusion Sinus tach persists likely due to infection, hypoxia, anemia. WBC, fever improved; cultures have cleared. Planned for IR guided drainage loculated pleural effusion today
--- NOTE | 2017-08-09 12:15 | PN ---
Teaching Attending Note Name of Resident: Arlette Baez ATTENDING PHYSICIAN STATEMENT I saw and evaluated the patient. I reviewed the resident's note and discussed the case with the resident. I agree with the resident's findings and plan as documented. SUBJECTIVE: Pt seen and examined in the ICU. No fevers recorded. Last cultures negative. OBJECTIVE: Last Vital Signs Temp Pulse Resp BP Pulse Ox 99.0 F 102 H 19 110/73 95 08/09/17 10:00 08/09/17 08:00 08/09/17 08:00 08/09/17 08:00 08/08/17 20:44 Intake & Output 08/06/17 08/07/17 08/08/17 08/09/17 23:59 23:59 23:59 23:59 Intake Total 2500 5200 2470 100 Output Total 2600 4900 1850 1200 Balance -100 300 620 -1100 Weight 66.31 kg 65.516 kg 65.516 kg Gen: NAD at rest Heart: tachycardic, regular Lung: decreased breath sounds at the bases Abd: soft, nontender Ext: no edema CBC, BMP 08/09/17 05:20 08/09/17 05:20 Active Medications Acetaminophen (Tylenol -) 650 mg PO Q6H PRN PRN Reason: FEVER Last Admin: 08/08/17 17:48 Dose: 650 mg Buprenorphine/Naloxone (Suboxone 8mg/2mg Sl Film -) 1 each SL DAILY [facility] Last Admin: 08/09/17 10:24 Dose: 1 each Clonidine (Catapres -) 0.1 mg PO BID [facility] Last Admin: 08/09/17 10:20 Dose: 0.1 mg Cyclobenzaprine HCl (Flexeril -) 10 mg PO TID [facility] Last Admin: 08/09/17 06:24 Dose: 10 mg Enoxaparin Sodium (Lovenox -) 40 mg SQ DAILY [facility] Last Admin: 08/08/17 09:15 Dose: 40 mg Fluconazole (Diflucan -) 200 mg PO DAILY [facility] Stop: 08/09/17 13:45 Last Admin: 08/09/17 10:20 Dose: 200 mg Gabapentin (Neurontin -) 300 mg PO TID [facility] Last Admin: 08/09/17 06:24 Dose: 300 mg Ceftaroline Fosamil 600 mg/ (Dextrose) 100 mls @ 200 mls/hr IVPB TID [facility] PRN Reason: Protocol Last Admin: 08/09/17 06:24 Dose: 200 mls/hr TELAVANCIN HCL 700 mg/ (Dextrose) 292 mls @ 292 mls/hr IVPB DAILY [facility] Last Admin: 08/09/17 10:19 Dose: 292 mls/hr Insulin Aspart (Novolog Vial Sliding Scale -) 1 vial SQ ACHS [facility] PRN Reason: Protocol Last Admin: 08/09/17 06:30 Dose: Not Given Insulin Detemir (Levemir Vial) 15 units SQ HS [facility] Last Admin: 08/08/17 21:53 Dose: 15 units Insulin Detemir (Levemir Vial) 22 units SQ AM [facility] Last Admin: 08/08/17 06:28 Dose: 22 units Nicotine (Nicoderm Patch -) 21 mg TD DAILY [facility] Last Admin: 08/09/17 10:32 Dose: 21 mg Nicotine Polacrilex (Nicorette Gum -) 2 mg BUC Q2H PRN PRN Reason: NICOTINE REPLACEMENT RX Ondansetron HCl (Zofran Odt -) 8 mg SL Q6H PRN PRN Reason: NAUSEA AND/OR VOMITING Pantoprazole Sodium (Protonix -) 40 mg PO BID [facility] Last Admin: 08/09/17 10:23 Dose: 40 mg Multivit/Folic Acid/Iron ( Vitamins (Sjr) -) 1 tab PO DAILY [facility] Last Admin: 08/09/17 10:21 Dose: 1 tab Sucralfate (Carafate Oral Suspension -) 1 gm PO QID [facility] Last Admin: 08/09/17 10:20 Dose: 1 gm Thiamine HCl (Vitamin B1 -) 100 mg PO HS [facility] Last Admin: 08/08/17 21:52 Dose: 100 mg Zolpidem Tartrate (Ambien -) 10 mg PO HS PRN PRN Reason: INSOMNIA Last Admin: 08/08/17 21:52 Dose: 10 mg ASSESSMENT AND PLAN: Persistent MRSA Bacteremia/LUE Abscess s/p debridement Lung Nodules likely Septic Emboli Diabetic Ketoacidosis resolved Septic Shock resolving Thrombocytopenia improved Acute Kidney Injury improved Lactic Acidosis resolved +Troponins likely Demand Ischemia IVDU/Polysubstance Abuse Anemia - continue antibiotics - for ultrasound guided left sided pigtail placement - will need PICC line for correction antibiotics - monitor urine output, creatinine - O2 to keep SpO2 >90% - monitor H/H - protonix - glucose control - DVT prophylaxis - can monitor on floor
[2017-08-09] MEDS: ACETAMINOPHEN 325 MG TABLET (FP) PO PRN (15:59)
--- NOTE | 2017-08-09 18:36 | PN ---
Progress Note, Physician - Current Medication List Current Medications: Active Medications Acetaminophen (Tylenol -) 650 mg PO Q6H PRN PRN Reason: FEVER Last Admin: 08/09/17 15:59 Dose: 650 mg Buprenorphine/Naloxone (Suboxone 8mg/2mg Sl Film -) 1 each SL DAILY [facility] Last Admin: 08/09/17 10:24 Dose: 1 each Clonidine (Catapres -) 0.1 mg PO BID [facility] Last Admin: 08/09/17 10:20 Dose: 0.1 mg Cyclobenzaprine HCl (Flexeril -) 10 mg PO TID [facility] Last Admin: 08/09/17 15:42 Dose: 10 mg Enoxaparin Sodium (Lovenox -) 40 mg SQ DAILY [facility] Last Admin: 08/08/17 09:15 Dose: 40 mg Gabapentin (Neurontin -) 300 mg PO TID [facility] Last Admin: 08/09/17 15:42 Dose: 300 mg Ceftaroline Fosamil 600 mg/ (Dextrose) 100 mls @ 200 mls/hr IVPB TID [facility] PRN Reason: Protocol Last Admin: 08/09/17 15:42 Dose: 200 mls/hr TELAVANCIN HCL 700 mg/ (Dextrose) 292 mls @ 292 mls/hr IVPB DAILY [facility] Last Admin: 08/09/17 10:19 Dose: 292 mls/hr Insulin Aspart (Novolog Vial Sliding Scale -) 1 vial SQ ACHS [facility] PRN Reason: Protocol Last Admin: 08/09/17 16:13 Dose: 4 units Insulin Detemir (Levemir Vial) 15 units SQ HS [facility] Last Admin: 08/08/17 21:53 Dose: 15 units Insulin Detemir (Levemir Vial) 22 units SQ AM [facility] Last Admin: 08/08/17 06:28 Dose: 22 units Nicotine (Nicoderm Patch -) 21 mg TD DAILY [facility] Last Admin: 08/09/17 10:32 Dose: 21 mg Nicotine Polacrilex (Nicorette Gum -) 2 mg BUC Q2H PRN PRN Reason: NICOTINE REPLACEMENT RX Ondansetron HCl (Zofran Odt -) 8 mg SL Q6H PRN PRN Reason: NAUSEA AND/OR VOMITING Pantoprazole Sodium (Protonix -) 40 mg PO BID [facility] Last Admin: 08/09/17 10:23 Dose: 40 mg Multivit/Folic Acid/Iron ( Vitamins (Sjr) -) 1 tab PO DAILY [facility] Last Admin: 08/09/17 10:21 Dose: 1 tab Sucralfate (Carafate Oral Suspension -) 1 gm PO QID [facility] Last Admin: 08/09/17 18:31 Dose: 1 gm Thiamine HCl (Vitamin B1 -) 100 mg PO HS [facility] Last Admin: 08/08/17 21:52 Dose: 100 mg - Objective Vital Signs: Vital Signs Temperature 98.0 F 08/09/17 14:00 Pulse Rate 126 H 08/09/17 14:00 Respiratory Rate 20 08/09/17 14:00 Blood Pressure 127/72 08/09/17 14:00 O2 Sat by Pulse Oximetry (%) 95 08/08/17 20:44 Labs: CBC, BMP 08/09/17 05:20 08/09/17 05:20 INR, PTT INR 1.02 (0.82-1.09) 07/26/17 05:55 Fibrinogen 788.0 mg/dL (238-498) H 07/27/17 06:15 Problem List - Problems (1) Sepsis Code(s): A41.9 - SEPSIS, UNSPECIFIED ORGANISM (2) Diabetic ketoacidosis Code(s): E13.10 - OTH DIABETES MELLITUS WITH KETOACIDOSIS WITHOUT COMA (3) Thrombocytosis Code(s): D47.3 - ESSENTIAL (HEMORRHAGIC) THROMBOCYTHEMIA (4) Anemia Code(s): D64.9 - ANEMIA, UNSPECIFIED (5) Opioid dependence with withdrawal Code(s): F11.23 - OPIOID DEPENDENCE WITH WITHDRAWAL
[2017-08-09] MEDS: THIAMINE HCL 100 MG TABLET (FP) PO SCH (21:20)
[2017-08-09] MEDS ORDERED: ZOLPIDEM TARTRATE 5 MG TABLET PO ONE (21:45)
[2017-08-10] MEDS ORDERED: PT OWN MED DRAWER 7, Y5N ONE (06:02)
[2017-08-10] MEDS: GABAPENTIN 300 MG CAPSULE (FP) PO SCH ×3 (06:19→22:42)
[2017-08-10] MEDS: CEFTAROLINE FOSAMIL ACETATE 600 MG in DEXTROSE 5%-WATER - 100 ML IVPB SCH ×3 (06:19→22:43)
[2017-08-10] MEDS: CYCLOBENZAPRINE HCL 10 MG TABLET (FP) PO SCH ×3 (06:19→22:43)
[2017-08-10] MEDS: INSULIN SLIDING SCALE (NOVOLOG) 1 VIAL SQ SCH ×4 (06:20→22:48)
[2017-08-10] MEDS: INSULIN DETEMIR 100 UNITS/ML MDV SQ SCH ×2 (06:20→22:47)
[2017-08-10 06:24] LABS: HEMATOCRIT 24.4 % (35.4-49); HEMOGLOBIN 8.2 GM/dL (11.7-16.9); MCH 30.8 pg (25.7-33.7); MCHC 33.6 g/dl (32.0-35.9); MEAN CELL VOLUME 91.7 fl (80-96); MEAN PLT VOLUME 7.9 fl (7.5-11.1); PLATELET COUNT 615 K/MM3 (134-434); RBC 2.67 M/mm3 (4.00-5.60); RDW 16.5 % (11.9-15.9); WHITE BLOOD COUNT 7.3 K/mm3 (4.0-10.0)
[2017-08-10 06:33] LABS: ALBUMIN 1.3 g/dl (3.4-5.0); ANION GAP 9 (8-16); BILIRUBIN,TOTAL 0.4 mg/dL (0.2-1.0); BLOOD UREA NITROGEN 13 mg/dL (7-18); CALCIUM 8.2 mg/dL (8.5-10.1); CHLORIDE 95 mmol/L (98-107); CO2 30 mmol/L (21-32); CREATININE 0.6 mg/dL (0.7-1.3); GLUCOSE,RANDOM 214 mg/dL (74-106); MAGNESIUM 1.9 mg/dL (1.8-2.4); PHOSPHOROUS 4.1 mg/dL (2.5-4.9); POTASSIUM 4.2 mmol/L (3.5-5.1); SGOT/AST 10 U/L (15-37); SGPT/ALT 12 U/L (12-78); SODIUM 134 mmol/L (136-145); TOT PROT 7.2 g/dl (6.4-8.2)
[2017-08-10 06:34] LABS: ALK PHOS 133 U/L (45-117)
--- NOTE | 2017-08-10 06:54 | PN ---
Progress Note (short form) - Note Progress Note: ID Left chest tube inserted Subjectively feels well Televancin and Ceftaroline Selected Entries 08/10/17 02:00 Temperature 98.3 F Pulse Rate 92 H Respiratory 20 Rate Blood Pressure 141/87 Microbiology 08/05/17 06:00 Blood - Peripheral Venous Blood Culture - Final NO GROWTH AFTER 5 DAYS INCUBATION 08/03/17 06:00 Urine - Urine Clean Catch Urine Culture - Final NO GROWTH OBTAINED 08/01/17 10:43 Blood - Peripheral Venous Blood Culture - Final Presumptive Mrsa (Pbp2a Pos) 08/01/17 10:30 Blood - Peripheral Venous Blood Culture - Final Mr S Aureus 07/23/17 23:35 Blood - Peripheral Venous Blood Culture - Final Mr S Aureus Streptococcus Acidominimus 07/23/17 23:35 Blood - Peripheral Venous Blood Culture - Final Mr S Aureus Streptococcus Acidominimus 08/06/17 07:50 Blood - Peripheral Venous Blood Culture - Preliminary NO GROWTH OBTAINED AFTER 72 HOURS, INCUBATION TO CONTINUE FOR 2 DAYS. 08/06/17 07:19 Blood - Peripheral Venous Blood Culture - Preliminary NO GROWTH OBTAINED AFTER 72 HOURS, INCUBATION TO CONTINUE FOR 2 DAYS. Laboratory Tests 08/09/17 08/10/17 08/10/17 05:20 05:55 05:55 WBC 7.9 Pending Hgb 8.2 L Pending Hct 24.1 L Pending Plt Count 664 H Pending BUN 13 Creatinine 0.6 L Creat Clearance w eGFR > 60 Alkaline Phosphatase 133 H Assessmnet MRSA bacteremia ( Strep too) IVDA Parapneumonic effusions post chest tube yesterday Clinical improvement continues Blood cutures no growth but will repeat to be sure Plan Repeat blood cultures ESR CRP & continue current antibiotics Bob SANDERSON
--- NOTE | 2017-08-10 08:31 | PN ---
Progress Note, Physician Chief Complaint: No new complaints Feels "better" Left chest tube inserted. History of Present Illness: TELE: Sinus tach, 100-115bpm - Current Medication List Current Medications: Active Medications Acetaminophen (Tylenol -) 650 mg PO Q6H PRN PRN Reason: FEVER Last Admin: 08/09/17 15:59 Dose: 650 mg Buprenorphine/Naloxone (Suboxone 8mg/2mg Sl Film -) 1 each SL DAILY [facility] Last Admin: 08/09/17 10:24 Dose: 1 each Clonidine (Catapres -) 0.1 mg PO BID [facility] Last Admin: 08/09/17 21:20 Dose: 0.1 mg Cyclobenzaprine HCl (Flexeril -) 10 mg PO TID [facility] Last Admin: 08/10/17 06:19 Dose: 10 mg Enoxaparin Sodium (Lovenox -) 40 mg SQ DAILY [facility] Last Admin: 08/08/17 09:15 Dose: 40 mg Gabapentin (Neurontin -) 300 mg PO TID [facility] Last Admin: 08/10/17 06:19 Dose: 300 mg Ceftaroline Fosamil 600 mg/ (Dextrose) 100 mls @ 200 mls/hr IVPB TID [facility] PRN Reason: Protocol Last Admin: 08/10/17 06:19 Dose: 200 mls/hr TELAVANCIN HCL 700 mg/ (Dextrose) 292 mls @ 292 mls/hr IVPB DAILY [facility] Last Admin: 08/09/17 10:19 Dose: 292 mls/hr Insulin Aspart (Novolog Vial Sliding Scale -) 1 vial SQ ACHS [facility] PRN Reason: Protocol Last Admin: 08/10/17 06:20 Dose: 4 units Insulin Detemir (Levemir Vial) 15 units SQ HS [facility] Last Admin: 08/09/17 21:22 Dose: 15 units Insulin Detemir (Levemir Vial) 22 units SQ AM [facility] Last Admin: 08/10/17 06:20 Dose: 22 units Nicotine (Nicoderm Patch -) 21 mg TD DAILY [facility] Last Admin: 08/09/17 10:32 Dose: 21 mg Nicotine Polacrilex (Nicorette Gum -) 2 mg BUC Q2H PRN PRN Reason: NICOTINE REPLACEMENT RX Ondansetron HCl (Zofran Odt -) 8 mg SL Q6H PRN PRN Reason: NAUSEA AND/OR VOMITING Pantoprazole Sodium (Protonix -) 40 mg PO BID [facility] Last Admin: 08/09/17 21:20 Dose: 40 mg Multivit/Folic Acid/Iron ( Vitamins (Sjr) -) 1 tab PO DAILY [facility] Last Admin: 08/09/17 10:21 Dose: 1 tab Sucralfate (Carafate Oral Suspension -) 1 gm PO QID [facility] Last Admin: 08/09/17 21:23 Dose: 1 gm Thiamine HCl (Vitamin B1 -) 100 mg PO HS [facility] Last Admin: 08/09/17 21:20 Dose: 100 mg - Objective Vital Signs: Vital Signs Temperature 98.3 F 08/10/17 02:00 Pulse Rate 96 H 08/10/17 06:00 Respiratory Rate 11 L 08/10/17 06:00 Blood Pressure 124/88 08/10/17 06:00 O2 Sat by Pulse Oximetry (%) 97 08/09/17 20:38 Constitutional: Yes: No Distress, Calm Cardiovascular: Yes: Regular Rate and Rhythm Respiratory: Yes: Other (left chest tube, = breath sounds.) Gastrointestinal: Yes: Soft Edema: No Neurological: Yes: Alert, Oriented Labs: CBC, BMP 08/10/17 05:55 08/10/17 05:55 INR, PTT INR 1.02 (0.82-1.09) 07/26/17 05:55 Fibrinogen 788.0 mg/dL (238-498) H 07/27/17 06:15 Microbiology 08/06/17 07:50 Blood - Peripheral Venous Blood Culture - Preliminary NO GROWTH OBTAINED AFTER 96 HOURS, INCUBATION TO CONTINUE FOR 1 DAYS. Laboratory Tests 08/10/17 08/10/17 05:55 05:55 WBC 7.3 Hgb 8.2 L Plt Count 615 H Sodium 134 L Potassium 4.2 Creatinine 0.6 L - ....Imaging EKG: Image Reviewed Problem List - Problems (1) Infective endocarditis Code(s): I33.0 - ACUTE AND SUBACUTE INFECTIVE ENDOCARDITIS Qualifiers: Infective endocarditis organism: bacterial (2) Diabetic ketoacidosis Code(s): E13.10 - OTH DIABETES MELLITUS WITH KETOACIDOSIS WITHOUT COMA (3) MRSA (methicillin resistant Staphylococcus aureus) septicemia Code(s): A41.02 - SEPSIS DUE TO METHICILLIN RESISTANT STAPHYLOCOCCUS AUREUS Assessment/Plan IVDA with persistently + bacteremia with MRSA, evidence of septic emboli and initial clinical concern for Endocarditis, PEG Negative. REC: Clinically improved, but now with loculated pleural effusion s/p left chest tube placement. Sinus tach persists likely due to infection, anemia. WBC, fever improved; cultures have cleared. Chest tube management as per critical care team.
--- NOTE | 2017-08-10 10:39 | PN ---
[facility] Progress Note (SOAP) Subjective: no cravings or desire to use, would like to continue suboxoen on 8mg daily, c/o insomn ia Objective: 08/10/17 10:38 Vital Signs - 24 hr 08/09/17 08/09/17 08/09/17 14:00 16:00 18:00 Temperature 98.0 F Pulse Rate 126 H 80 63 Respiratory 20 Rate Blood Pressure 127/72 117/87 104/59 O2 Sat by Pulse Oximetry (%) 08/09/17 08/09/17 08/09/17 20:02 20:38 22:00 Temperature 99 F Pulse Rate 101 H Respiratory 20 23 Rate Blood Pressure 144/88 O2 Sat by Pulse 97 97 Oximetry (%) 08/10/17 08/10/17 08/10/17 00:00 02:00 04:00 Temperature 98.3 F Pulse Rate 92 H 95 H Respiratory 20 14 Rate Blood Pressure 154/96 141/87 145/92 O2 Sat by Pulse Oximetry (%) 08/10/17 06:00 Temperature Pulse Rate 96 H Respiratory 11 L Rate Blood Pressure 124/88 O2 Sat by Pulse Oximetry (%) Laboratory Results - last 24 hr 08/09/17 08/09/17 08/09/17 06:29 11:39 16:13 WBC RBC Hgb Hct MCV MCH MCHC RDW Plt Count MPV Sodium Potassium Chloride Carbon Dioxide Anion Gap BUN Creatinine Creat Clearance w eGFR POC Glucometer [phone] 91.07005 208.88286 Random Glucose Calcium Phosphorus Magnesium Total Bilirubin AST ALT Alkaline Phosphatase C-Reactive Protein Total Protein Albumin 08/09/17 08/10/17 08/10/17 21:11 05:55 05:55 WBC 7.3 RBC 2.67 L Hgb 8.2 L Hct 24.4 L MCV 91.7 MCH 30.8 MCHC 33.6 RDW 16.5 H Plt Count 615 H MPV 7.9 Sodium 134 L Potassium 4.2 Chloride 95 L Carbon Dioxide 30 Anion Gap 9 BUN 13 Creatinine 0.6 L Creat Clearance w eGFR > 60 POC Glucometer > 400 Random Glucose 214 H D Calcium 8.2 L Phosphorus 4.1 Magnesium 1.9 Total Bilirubin 0.4 D AST 10 L D ALT 12 Alkaline Phosphatase 133 H C-Reactive Protein Total Protein 7.2 Albumin 1.3 L 08/10/17 08/10/17 05:55 06:07 WBC RBC Hgb Hct MCV MCH MCHC RDW Plt Count MPV Sodium Potassium Chloride Carbon Dioxide Anion Gap BUN Creatinine Creat Clearance w eGFR POC Glucometer [phone] Random Glucose Calcium Phosphorus Magnesium Total Bilirubin AST ALT Alkaline Phosphatase C-Reactive Protein 7.3 H Total Protein Albumin Assessment: 08/10/17 10:38 OUD - on MAT, suboxone dose adequate, insomnia - start ambprincess
[2017-08-10] MEDS: SUCRALFATE 1 GM/10 ML UNIT DOSE CUPS PO SCH ×4 (10:49→22:43)
[2017-08-10] MEDS: PANTOPRAZOLE 40 MG TABLET (FP) PO SCH ×2 (10:49→22:43)
[2017-08-10] MEDS: cloNIDine HCL 0.1 MG TABLET PO SCH ×2 (10:49→22:43)
[2017-08-10] MEDS: ENOXAPARIN NA (PORCINE) 40 MG/0.4 ML DISP.SYRIN SQ SCH (10:49)
[2017-08-10] MEDS: NICOTINE 21 MG/24 HOURS TOPICAL PATCH TD SCH (10:50)
[2017-08-10] MEDS: PRENATAL VITAMINS W/ FOLIC ACID TABLET (FP) PO SCH (10:50)
[2017-08-10] MEDS: BUPRENORPHINE/NALOXONE 8 MG/2 MG FILM PACKET SL SCH (10:51)
--- NOTE | 2017-08-10 11:00 | PN ---
Progress Note, Physician Chief Complaint: IVDA with left arm cellulitis and infected thrombophlebitis History of Present Illness: 21yo LHD male PMH type 1 DM, current IV heroin user, Hepatitis C presented with altered mental status and generalized weakness. Complains of some pain in the left arm. CT scan of the chest reveals a presumed septic pneumonia. Left arm is much improved. He has no other complaints. - Current Medication List Current Medications: Active Medications Acetaminophen (Tylenol -) 650 mg PO Q6H PRN PRN Reason: FEVER Last Admin: 08/09/17 15:59 Dose: 650 mg Buprenorphine/Naloxone (Suboxone 8mg/2mg Sl Film -) 1 each SL DAILY [facility] Last Admin: 08/10/17 10:51 Dose: 1 each Clonidine (Catapres -) 0.1 mg PO BID [facility] Last Admin: 08/10/17 10:49 Dose: 0.1 mg Cyclobenzaprine HCl (Flexeril -) 10 mg PO TID [facility] Last Admin: 08/10/17 06:19 Dose: 10 mg Enoxaparin Sodium (Lovenox -) 40 mg SQ DAILY [facility] Last Admin: 08/10/17 10:49 Dose: 40 mg Gabapentin (Neurontin -) 300 mg PO TID [facility] Last Admin: 08/10/17 06:19 Dose: 300 mg Ceftaroline Fosamil 600 mg/ (Dextrose) 100 mls @ 200 mls/hr IVPB TID [facility] PRN Reason: Protocol Last Admin: 08/10/17 06:19 Dose: 200 mls/hr TELAVANCIN HCL 700 mg/ (Dextrose) 292 mls @ 292 mls/hr IVPB DAILY [facility] Last Admin: 08/09/17 10:19 Dose: 292 mls/hr Insulin Aspart (Novolog Vial Sliding Scale -) 1 vial SQ ACHS [facility] PRN Reason: Protocol Last Admin: 08/10/17 06:20 Dose: 4 units Insulin Detemir (Levemir Vial) 15 units SQ HS [facility] Last Admin: 08/09/17 21:22 Dose: 15 units Insulin Detemir (Levemir Vial) 22 units SQ AM [facility] Last Admin: 08/10/17 06:20 Dose: 22 units Nicotine (Nicoderm Patch -) 21 mg TD DAILY [facility] Last Admin: 08/10/17 10:50 Dose: 21 mg Nicotine Polacrilex (Nicorette Gum -) 2 mg BUC Q2H PRN PRN Reason: NICOTINE REPLACEMENT RX Ondansetron HCl (Zofran Odt -) 8 mg SL Q6H PRN PRN Reason: NAUSEA AND/OR VOMITING Pantoprazole Sodium (Protonix -) 40 mg PO BID [facility] Last Admin: 08/10/17 10:49 Dose: 40 mg Multivit/Folic Acid/Iron ( Vitamins (Sjr) -) 1 tab PO DAILY [facility] Last Admin: 08/10/17 10:50 Dose: 1 tab Sucralfate (Carafate Oral Suspension -) 1 gm PO QID [facility] Last Admin: 08/10/17 10:49 Dose: 1 gm Thiamine HCl (Vitamin B1 -) 100 mg PO HS [facility] Last Admin: 08/09/17 21:20 Dose: 100 mg Zolpidem Tartrate (Ambien -) 10 mg PO HS PRN PRN Reason: INSOMNIA - Objective Vital Signs: Vital Signs Temperature 98.3 F 08/10/17 02:00 Pulse Rate 96 H 08/10/17 06:00 Respiratory Rate 11 L 08/10/17 06:00 Blood Pressure 124/88 08/10/17 06:00 O2 Sat by Pulse Oximetry (%) 97 08/09/17 20:38 Vital Signs Period Temp Pulse Resp BP Sys/Nolan Pulse Ox Last 24 Hr 98.0 F-99 F 63-126 11-23 104-154/59-96 97-97 Intake & Output 08/09/17 08/10/17 08/10/17 23:59 07:59 15:59 Intake Total 650 100 Output Total 2620 800 Balance -1970 -700 Weight 138 lb Intake: IVPB 450 100 Oral 200 Output: Chest Tube Drainage 620 left postertior 620 Urine 2000 800 Void 2000 800 Other: Voiding Method Toilet Toilet Bowel Movement No Weight Measurement Method Built in [facility] Labs: CBC, BMP 08/10/17 05:55 08/10/17 05:55 INR, PTT INR 1.02 (0.82-1.09) 07/26/17 05:55 Fibrinogen 788.0 mg/dL (238-498) H 07/27/17 06:15 Problem List - Problems (1) MRSA (methicillin resistant Staphylococcus aureus) septicemia Assessment/Plan: 21 yo LHD male with Hepatitis C, DM type 1 in DKA with aggressive left forearm cellulitis, thrombophlebitis, and draining abscess at the site of infecting IV drugs. MRSA septicemia, secondary to injecting heroin with contaminated needles. POD#14 s/p I&D and debridement of infected thrombophlebitis left forearm. The edema in the left arm is largely resolved. WBC normal range, blood cultures are clearing. Physical therapy follow-up for ROM left elbow extension Dressing Left forearm/ antecubital fossa daily Wound Measurement: two linear [id number], yellow stained fibrinous exudate soft tissue, new granulation Dressing instructions: oil emulsion dressing, 4X4 gauze sponges, Aaron wrap IV antibiotics per ID left arm elevation above the heart Can follow up after discharge This patient is critically ill. Time spent reviewing chart, examining patient, talking with providers and/or family and documentation is 35 minutes Code(s): A41.02 - SEPSIS DUE TO METHICILLIN RESISTANT STAPHYLOCOCCUS AUREUS (2) Thrombophlebitis arm Code(s): I80.8 - PHLEBITIS AND THROMBOPHLEBITIS OF OTHER SITES (3) Abscess of forearm Code(s): L02.419 - CUTANEOUS ABSCESS OF LIMB, UNSPECIFIED (4) Opioid dependence with withdrawal Code(s): F11.23 - OPIOID DEPENDENCE WITH WITHDRAWAL (5) Diabetes Code(s): E11.9 - TYPE 2 DIABETES MELLITUS WITHOUT COMPLICATIONS Qualifiers: Diabetes mellitus type: type 1 Diabetes mellitus complication status: with ketoacidosis Diabetes mellitus complication detail: without coma Qualified Code(s): E10.10 - Type 1 diabetes mellitus with ketoacidosis without coma
--- NOTE | 2017-08-10 12:04 | PN ---
Teaching Attending Note Name of Resident: Arlette Baez ATTENDING PHYSICIAN STATEMENT I saw and evaluated the patient. I reviewed the resident's note and discussed the case with the resident. I agree with the resident's findings and plan as documented. SUBJECTIVE: Patient seen and examined in the ICU. No fevers recorded. No CP or SOB. OBJECTIVE: Intake & Output 08/07/17 08/08/17 08/09/17 08/10/17 23:59 23:59 23:59 23:59 Intake Total 5200 2470 1250 100 Output Total 4900 1850 4820 800 Balance 300 620 -1570 -700 Weight 146 lb 3 oz 144 lb 7 oz 144 lb 7 oz 138 lb Last Vital Signs Temp Pulse Resp BP Pulse Ox 98.5 F 86 18 113/74 97 08/10/17 10:00 08/10/17 10:00 08/10/17 10:00 08/10/17 10:00 08/09/17 20:38 Active Medications Acetaminophen (Tylenol -) 650 mg PO Q6H PRN PRN Reason: FEVER Last Admin: 08/09/17 15:59 Dose: 650 mg Buprenorphine/Naloxone (Suboxone 8mg/2mg Sl Film -) 1 each SL DAILY [facility] Last Admin: 08/10/17 10:51 Dose: 1 each Clonidine (Catapres -) 0.1 mg PO BID [facility] Last Admin: 08/10/17 10:49 Dose: 0.1 mg Cyclobenzaprine HCl (Flexeril -) 10 mg PO TID [facility] Last Admin: 08/10/17 06:19 Dose: 10 mg Enoxaparin Sodium (Lovenox -) 40 mg SQ DAILY [facility] Last Admin: 08/10/17 10:49 Dose: 40 mg Gabapentin (Neurontin -) 300 mg PO TID [facility] Last Admin: 08/10/17 06:19 Dose: 300 mg Ceftaroline Fosamil 600 mg/ (Dextrose) 100 mls @ 200 mls/hr IVPB TID [facility] PRN Reason: Protocol Last Admin: 08/10/17 06:19 Dose: 200 mls/hr TELAVANCIN HCL 700 mg/ (Dextrose) 292 mls @ 292 mls/hr IVPB DAILY [facility] Last Admin: 08/09/17 10:19 Dose: 292 mls/hr Insulin Aspart (Novolog Vial Sliding Scale -) 1 vial SQ ACHS [facility] PRN Reason: Protocol Last Admin: 08/10/17 11:05 Dose: Not Given Insulin Detemir (Levemir Vial) 15 units SQ HS [facility] Last Admin: 08/09/17 21:22 Dose: 15 units Insulin Detemir (Levemir Vial) 22 units SQ AM [facility] Last Admin: 08/10/17 06:20 Dose: 22 units Nicotine (Nicoderm Patch -) 21 mg TD DAILY [facility] Last Admin: 08/10/17 10:50 Dose: 21 mg Nicotine Polacrilex (Nicorette Gum -) 2 mg BUC Q2H PRN PRN Reason: NICOTINE REPLACEMENT RX Ondansetron HCl (Zofran Odt -) 8 mg SL Q6H PRN PRN Reason: NAUSEA AND/OR VOMITING Pantoprazole Sodium (Protonix -) 40 mg PO BID [facility] Last Admin: 08/10/17 10:49 Dose: 40 mg Multivit/Folic Acid/Iron ( Vitamins (Sjr) -) 1 tab PO DAILY [facility] Last Admin: 08/10/17 10:50 Dose: 1 tab Sucralfate (Carafate Oral Suspension -) 1 gm PO QID [facility] Last Admin: 08/10/17 10:49 Dose: 1 gm Thiamine HCl (Vitamin B1 -) 100 mg PO HS [facility] Last Admin: 08/09/17 21:20 Dose: 100 mg Zolpidem Tartrate (Ambien -) 10 mg PO HS PRN PRN Reason: INSOMNIA Gen: NAD at rest Heart: tachycardic, regular Lung: decreased breath sounds at the bases Abd: soft, nontender Ext: no edema Laboratory Results - last 24 hr 08/09/17 08/09/17 08/09/17 06:29 11:39 16:13 WBC RBC Hgb Hct MCV MCH MCHC RDW Plt Count MPV Sodium Potassium Chloride Carbon Dioxide Anion Gap BUN Creatinine Creat Clearance w eGFR POC Glucometer 181.43011 91.61615 208.72662 Random Glucose Calcium Phosphorus Magnesium Total Bilirubin AST ALT Alkaline Phosphatase C-Reactive Protein Total Protein Albumin 08/09/17 08/10/17 08/10/17 21:11 05:55 05:55 WBC 7.3 RBC 2.67 L Hgb 8.2 L Hct 24.4 L MCV 91.7 MCH 30.8 MCHC 33.6 RDW 16.5 H Plt Count 615 H MPV 7.9 Sodium 134 L Potassium 4.2 Chloride 95 L Carbon Dioxide 30 Anion Gap 9 BUN 13 Creatinine 0.6 L Creat Clearance w eGFR > 60 POC Glucometer > 400 Random Glucose 214 H D Calcium 8.2 L Phosphorus 4.1 Magnesium 1.9 Total Bilirubin 0.4 D AST 10 L D ALT 12 Alkaline Phosphatase 133 H C-Reactive Protein Total Protein 7.2 Albumin 1.3 L 08/10/17 08/10/17 05:55 06:07 WBC RBC Hgb Hct MCV MCH MCHC RDW Plt Count MPV Sodium Potassium Chloride Carbon Dioxide Anion Gap BUN Creatinine Creat Clearance w eGFR POC Glucometer [phone] Random Glucose Calcium Phosphorus Magnesium Total Bilirubin AST ALT Alkaline Phosphatase C-Reactive Protein 7.3 H Total Protein Albumin ASSESSMENT AND PLAN: Persistent MRSA Bacteremia/LUE Abscess s/p debridement Lung Nodules likely Septic Emboli Diabetic Ketoacidosis resolved Septic Shock resolving Thrombocytopenia improved Acute Kidney Injury improved Lactic Acidosis resolved +Troponins likely Demand Ischemia IVDU/Polysubstance Abuse Anemia - continue antibiotics per ID - Monitor pigtail output - will need PICC line for longterm antibiotics - monitor urine output, creatinine - O2 to keep SpO2 >90% - monitor H/H - protonix - glucose control - DVT prophylaxis - floor Dr Aiken
--- NOTE | 2017-08-10 14:22 | PN ---
Progress Note, Physician History of Present Illness: Overnight: No acute events overnight. VSS. Pigtail catheter draining 620mL straw colored. Today: No complaints. Still awaiting med/surg transfer. CXR markedly improved - Objective Vital Signs: Vital Signs Period Temp Pulse Resp BP Sys/Nolan Pulse Ox Last 24 Hr 98.3 F-99 F 63-101 11-23 104-154/59-96 97-97 Additional Findings/Remarks: GEN: AAOx3, NAD, Lying comfortably, smiling talking with examiner HEENT: PERRLA, EOMi CV: S1, S2, RRR LUNG: CTABL ABD: Soft, NT, ND, normoactive BS MSK: No edema, no erythema Assessment/Plan 21yo M with DM1, Active Heroin User, Hep C, who originally presented in DKA w/ MRSA bacteremia. Readmitted to the ICU for acute hypoxic RF. Pulm: * # Acute Hypoxic RF - Clinically much improved. Pt has multiple B/L opacities and pleural effusions, likely from 2/2 septic emboli from MRSA bacteremia from IVDA. No endocardial vegetations on PEG. Both effusions have been tapped. Currently has pigtail in L side today. No organisms on pleural culture. CXR much improved after drainage. Continues on Ceftaroline/Telavancin. ID: * # MRSA bacteremia - Pt is clearing on Ceftaroline/Telavancin, BCx continues to be negative for 5 days. Likely needs total 6 weeks of antibiotics. Had L forearm abscess drained by surgery. Endo: * # IDDM - Poorly controlled. Levemir BID + ISS, Endocrine on board FEN/PPX: No IVF, diabetic diet, lovenox, PT Dispo: Transfer to med/surg khloe Baez MD PGY1 ICU
[2017-08-10] MEDS: WATER IVPB SCH (17:29)
[2017-08-10] MEDS: DEXTROSE 5% IVPB SCH (17:29)
[2017-08-10] MEDS: TELAVANCIN HCL IVPB SCH (17:29)
[2017-08-10] MEDS ORDERED: NICOTINE POLACRILEX 2 MG GUM BUC PRN (20:51)
[2017-08-10] MEDS ORDERED: ONDANSETRON *ODT* 4 MG TABLET SL PRN (20:51)
[2017-08-10] MEDS ORDERED: INSULIN (NOVOLOG) ASPART 100 UNITS/ML 10ML VIAL ONE (21:17)
[2017-08-10] MEDS ORDERED: CEFTAROLINE FOSAMIL ACETATE 600 MG in DEXTROSE 5%-WATER - 250 ML IVPB SCH (21:45)
[2017-08-10] MEDS: THIAMINE HCL 100 MG TABLET (FP) PO SCH (22:42)
[2017-08-10] MEDS: ZOLPIDEM TARTRATE 5 MG TABLET PO PRN (22:43)
--- NOTE | 2017-08-11 00:03 | PN ---
Progress Note, Physician - Current Medication List Current Medications: Active Medications Acetaminophen (Tylenol -) 650 mg PO Q6H PRN PRN Reason: FEVER Buprenorphine/Naloxone (Suboxone 8mg/2mg Sl Film -) 1 each SL DAILY [facility] Clonidine (Catapres -) 0.1 mg PO BID [facility] Last Admin: 08/10/17 22:43 Dose: 0.1 mg Cyclobenzaprine HCl (Flexeril -) 10 mg PO TID [facility] Last Admin: 08/10/17 22:43 Dose: 10 mg Enoxaparin Sodium (Lovenox -) 40 mg SQ DAILY [facility] Gabapentin (Neurontin -) 300 mg PO TID [facility] Last Admin: 08/10/17 22:42 Dose: 300 mg Ceftaroline Fosamil 600 mg/ (Dextrose) 100 mls @ 200 mls/hr IVPB TID [facility] PRN Reason: Protocol Last Admin: 08/10/17 22:43 Dose: 200 mls/hr TELAVANCIN HCL 700 mg/ (Dextrose) 292 mls @ 292 mls/hr IVPB DAILY [facility] Insulin Aspart (Novolog Vial Sliding Scale -) 1 vial SQ ACHS [facility] PRN Reason: Protocol Last Admin: 08/10/17 22:48 Dose: 8 units Insulin Detemir (Levemir Vial) 15 units SQ HS [facility] Last Admin: 08/10/17 22:47 Dose: 15 units Insulin Detemir (Levemir Vial) 22 units SQ AM [facility] Nicotine (Nicoderm Patch -) 21 mg TD DAILY [facility] Nicotine Polacrilex (Nicorette Gum -) 2 mg BUC Q2H PRN PRN Reason: NICOTINE REPLACEMENT RX Ondansetron HCl (Zofran Odt -) 8 mg SL Q6H PRN PRN Reason: NAUSEA AND/OR VOMITING Pantoprazole Sodium (Protonix -) 40 mg PO BID [facility] Last Admin: 08/10/17 22:43 Dose: 40 mg Multivit/Folic Acid/Iron ( Vitamins (Sjr) -) 1 tab PO DAILY [facility] Sucralfate (Carafate Oral Suspension -) 1 gm PO QID [facility] Last Admin: 08/10/17 22:43 Dose: 1 gm Thiamine HCl (Vitamin B1 -) 100 mg PO HS [facility] Last Admin: 08/10/17 22:42 Dose: 100 mg Zolpidem Tartrate (Ambien -) 10 mg PO HS PRN PRN Reason: INSOMNIA Last Admin: 08/10/17 22:43 Dose: 10 mg - Objective Vital Signs: Vital Signs Temperature 98.7 F 08/10/17 18:57 Pulse Rate 90 08/10/17 18:57 Respiratory Rate 18 08/10/17 18:57 Blood Pressure 130/93 08/10/17 18:57 O2 Sat by Pulse Oximetry (%) 100 08/10/17 10:00 Labs: CBC, BMP 08/10/17 05:55 08/10/17 05:55 INR, PTT INR 1.02 (0.82-1.09) 07/26/17 05:55 Fibrinogen 788.0 mg/dL (238-498) H 07/27/17 06:15 Problem List - Problems (1) Sepsis Code(s): A41.9 - SEPSIS, UNSPECIFIED ORGANISM (2) Diabetic ketoacidosis Code(s): E13.10 - OTH DIABETES MELLITUS WITH KETOACIDOSIS WITHOUT COMA (3) Thrombocytosis Code(s): D47.3 - ESSENTIAL (HEMORRHAGIC) THROMBOCYTHEMIA (4) Anemia Code(s): D64.9 - ANEMIA, UNSPECIFIED (5) Opioid dependence with withdrawal Code(s): F11.23 - OPIOID DEPENDENCE WITH WITHDRAWAL
[2017-08-11] MEDS: CYCLOBENZAPRINE HCL 10 MG TABLET (FP) PO SCH ×3 (06:19→21:14)
[2017-08-11] MEDS: GABAPENTIN 300 MG CAPSULE (FP) PO SCH ×3 (06:19→21:14)
[2017-08-11] MEDS: CEFTAROLINE FOSAMIL ACETATE 600 MG in DEXTROSE 5%-WATER - 100 ML IVPB SCH ×3 (06:19→21:16)
[2017-08-11] MEDS: INSULIN DETEMIR 100 UNITS/ML MDV SQ SCH ×2 (06:21→21:15)
[2017-08-11] MEDS: INSULIN SLIDING SCALE (NOVOLOG) 1 VIAL SQ SCH ×4 (06:22→21:17)
[2017-08-11 08:19] LABS: HEMATOCRIT 24.6 % (35.4-49); HEMOGLOBIN 8.2 GM/dL (11.7-16.9); MCH 30.9 pg (25.7-33.7); MCHC 33.4 g/dl (32.0-35.9); MEAN CELL VOLUME 92.5 fl (80-96); MEAN PLT VOLUME 7.8 fl (7.5-11.1); PLATELET COUNT 565 K/MM3 (134-434); RBC 2.66 M/mm3 (4.00-5.60); RDW 16.1 % (11.9-15.9); WHITE BLOOD COUNT 7.3 K/mm3 (4.0-10.0)
[2017-08-11 08:24] LABS: ANION GAP 6 (8-16); BLOOD UREA NITROGEN 14 mg/dL (7-18); CALCIUM 7.3 mg/dL (8.5-10.1); CHLORIDE 99 mmol/L (98-107); CO2 31 mmol/L (21-32); CREATININE 0.7 mg/dL (0.7-1.3); GLUCOSE,RANDOM 189 mg/dL (74-106); MAGNESIUM 1.5 mg/dL (1.8-2.4); PHOSPHOROUS 4.6 mg/dL (2.5-4.9); POTASSIUM 4.2 mmol/L (3.5-5.1); SODIUM 136 mmol/L (136-145)
--- NOTE | 2017-08-11 11:35 | PN ---
Progress Note, Physician History of Present Illness: seen and examined today, feeling better. no new complaints. - Current Medication List Current Medications: Active Medications Acetaminophen (Tylenol -) 650 mg PO Q6H PRN PRN Reason: FEVER Buprenorphine/Naloxone (Suboxone 8mg/2mg Sl Film -) 1 each SL DAILY [facility] Clonidine (Catapres -) 0.1 mg PO BID [facility] Last Admin: 08/10/17 22:43 Dose: 0.1 mg Cyclobenzaprine HCl (Flexeril -) 10 mg PO TID [facility] Last Admin: 08/11/17 06:19 Dose: 10 mg Enoxaparin Sodium (Lovenox -) 40 mg SQ DAILY [facility] Gabapentin (Neurontin -) 300 mg PO TID [facility] Last Admin: 08/11/17 06:19 Dose: 300 mg Ceftaroline Fosamil 600 mg/ (Dextrose) 100 mls @ 200 mls/hr IVPB TID [facility] PRN Reason: Protocol Last Admin: 08/11/17 06:19 Dose: 200 mls/hr TELAVANCIN HCL 700 mg/ (Dextrose) 292 mls @ 292 mls/hr IVPB DAILY [facility] Insulin Aspart (Novolog Vial Sliding Scale -) 1 vial SQ ACHS [facility] PRN Reason: Protocol Last Admin: 08/11/17 06:22 Dose: 2 units Insulin Detemir (Levemir Vial) 15 units SQ HS [facility] Last Admin: 08/10/17 22:47 Dose: 15 units Insulin Detemir (Levemir Vial) 22 units SQ AM [facility] Last Admin: 08/11/17 06:21 Dose: 22 units Nicotine (Nicoderm Patch -) 21 mg TD DAILY [facility] Nicotine Polacrilex (Nicorette Gum -) 2 mg BUC Q2H PRN PRN Reason: NICOTINE REPLACEMENT RX Ondansetron HCl (Zofran Odt -) 8 mg SL Q6H PRN PRN Reason: NAUSEA AND/OR VOMITING Pantoprazole Sodium (Protonix -) 40 mg PO BID [facility] Last Admin: 08/10/17 22:43 Dose: 40 mg Multivit/Folic Acid/Iron ( Vitamins (Sjr) -) 1 tab PO DAILY [facility] Sucralfate (Carafate Oral Suspension -) 1 gm PO QID [facility] Last Admin: 08/10/17 22:43 Dose: 1 gm Thiamine HCl (Vitamin B1 -) 100 mg PO HS [facility] Last Admin: 08/10/17 22:42 Dose: 100 mg Zolpidem Tartrate (Ambien -) 10 mg PO HS PRN PRN Reason: INSOMNIA Last Admin: 08/10/17 22:43 Dose: 10 mg - Objective Vital Signs: Vital Signs Temperature 97.8 F 08/11/17 06:00 Pulse Rate 89 08/11/17 06:00 Respiratory Rate 20 08/11/17 06:00 Blood Pressure 123/71 08/11/17 06:00 O2 Sat by Pulse Oximetry (%) 94 L 08/10/17 22:00 Constitutional: Yes: No Distress, Calm Eyes: Yes: Conjunctiva Clear, EOM Intact HENT: Yes: Atraumatic, Normocephalic Neck: Yes: Supple, Thyromegaly Cardiovascular: Yes: Regular Rate and Rhythm, S1, S2. No: Bradycardia, Tachycardia, Pulse Irregular, Bruit, JVD, Gallop, Murmur, Rub, S3, S4, Varicosities Respiratory: Yes: Regular, Diminished. No: Rales, Rhonchi, Wheezes Gastrointestinal: Yes: Normal Bowel Sounds, Soft Edema: No Peripheral Pulses WNL: Yes Neurological: Yes: Alert, Oriented Psychiatric: Yes: Alert, Oriented Labs: CBC, BMP 08/11/17 07:00 08/11/17 07:00 INR, PTT INR 1.02 (0.82-1.09) 07/26/17 05:55 Fibrinogen 788.0 mg/dL (238-498) H 07/27/17 06:15 - ....Imaging Chest X-ray: Report Reviewed, Image Reviewed EKG: Report Reviewed, Image Reviewed Other: Report Reviewed, Image Reviewed Assessment/Plan IVDA with with MRSA sepsis, evidence of septic emboli, pleural effusions, and initial clinical concern for Endocarditis, PEG no echo evidence of endocarditis. REC: Clinically improved, but now with loculated pleural effusion s/p left chest tube placement. HR normal now with overall improved clinical status WBC, fever improved; cultures have cleared. Chest tube management
[2017-08-11] MEDS: NICOTINE 21 MG/24 HOURS TOPICAL PATCH TD SCH (11:43)
[2017-08-11] MEDS: cloNIDine HCL 0.1 MG TABLET PO SCH ×2 (11:44→21:14)
[2017-08-11] MEDS: SUCRALFATE 1 GM/10 ML UNIT DOSE CUPS PO SCH ×4 (11:44→21:13)
[2017-08-11] MEDS: ENOXAPARIN NA (PORCINE) 40 MG/0.4 ML DISP.SYRIN SQ SCH (11:44)
[2017-08-11] MEDS: BUPRENORPHINE/NALOXONE 8 MG/2 MG FILM PACKET SL SCH (11:45)
[2017-08-11] MEDS: PRENATAL VITAMINS W/ FOLIC ACID TABLET (FP) PO SCH (11:45)
[2017-08-11] MEDS ORDERED: INSULIN (NOVOLOG) ASPART 100 UNITS/ML 10ML VIAL ONE (11:48)
[2017-08-11] MEDS: PANTOPRAZOLE 40 MG TABLET (FP) PO SCH ×2 (11:49→21:14)
[2017-08-11] MEDS: WATER IVPB SCH (13:31)
[2017-08-11] MEDS: DEXTROSE 5% IVPB SCH (13:31)
[2017-08-11] MEDS: TELAVANCIN HCL IVPB SCH (13:31)
[2017-08-11] MEDS ORDERED: PT OWN MED DRAWER 7, Y5N ONE (17:21)
[2017-08-11] MEDS: THIAMINE HCL 100 MG TABLET (FP) PO SCH (21:13)
[2017-08-12] MEDS ORDERED: PT OWN MED DRAWER 7, Y5N ONE ×2 (02:00→21:21)
[2017-08-12] MEDS: CYCLOBENZAPRINE HCL 10 MG TABLET (FP) PO SCH ×3 (05:56→21:26)
[2017-08-12] MEDS: CEFTAROLINE FOSAMIL ACETATE 600 MG in DEXTROSE 5%-WATER - 100 ML IVPB SCH ×3 (05:56→21:28)
[2017-08-12] MEDS: GABAPENTIN 300 MG CAPSULE (FP) PO SCH ×3 (05:56→21:26)
[2017-08-12] MEDS: INSULIN DETEMIR 100 UNITS/ML MDV SQ SCH ×2 (06:00→21:27)
[2017-08-12] MEDS: INSULIN SLIDING SCALE (NOVOLOG) 1 VIAL SQ SCH ×4 (06:01→21:27)
[2017-08-12] MEDS: cloNIDine HCL 0.1 MG TABLET PO SCH ×2 (11:20→21:26)
[2017-08-12] MEDS: PRENATAL VITAMINS W/ FOLIC ACID TABLET (FP) PO SCH (11:20)
[2017-08-12] MEDS: PANTOPRAZOLE 40 MG TABLET (FP) PO SCH ×2 (11:21→21:26)
[2017-08-12] MEDS: NICOTINE 21 MG/24 HOURS TOPICAL PATCH TD SCH (11:21)
[2017-08-12] MEDS: SUCRALFATE 1 GM/10 ML UNIT DOSE CUPS PO SCH ×4 (11:21→21:26)
[2017-08-12] MEDS: BUPRENORPHINE/NALOXONE 8 MG/2 MG FILM PACKET SL SCH (11:21)
[2017-08-12] MEDS: ENOXAPARIN NA (PORCINE) 40 MG/0.4 ML DISP.SYRIN SQ SCH (11:23)
[2017-08-12] MEDS: TELAVANCIN HCL IVPB SCH (11:35)
[2017-08-12] MEDS: WATER IVPB SCH (11:35)
[2017-08-12] MEDS: DEXTROSE 5% IVPB SCH (11:35)
--- NOTE | 2017-08-12 14:00 | PN ---
Progress Note, Physician History of Present Illness: seen and examined today in nad. feeling better. no new complaints. - Current Medication List Current Medications: Active Medications Acetaminophen (Tylenol -) 650 mg PO Q6H PRN PRN Reason: FEVER Buprenorphine/Naloxone (Suboxone 8mg/2mg Sl Film -) 1 each SL DAILY [facility] Last Admin: 08/12/17 11:21 Dose: 1 each Clonidine (Catapres -) 0.1 mg PO BID [facility] Last Admin: 08/12/17 11:20 Dose: 0.1 mg Cyclobenzaprine HCl (Flexeril -) 10 mg PO TID [facility] Last Admin: 08/12/17 05:56 Dose: 10 mg Enoxaparin Sodium (Lovenox -) 40 mg SQ DAILY [facility] Last Admin: 08/12/17 11:23 Dose: 40 mg Gabapentin (Neurontin -) 300 mg PO TID [facility] Last Admin: 08/12/17 05:56 Dose: 300 mg Ceftaroline Fosamil 600 mg/ (Dextrose) 100 mls @ 200 mls/hr IVPB TID [facility] PRN Reason: Protocol Last Admin: 08/12/17 05:56 Dose: 200 mls/hr TELAVANCIN HCL 700 mg/ (Dextrose) 292 mls @ 292 mls/hr IVPB DAILY [facility] Last Admin: 08/12/17 11:35 Dose: 292 mls/hr Insulin Aspart (Novolog Vial Sliding Scale -) 1 vial SQ ACHS [facility] PRN Reason: Protocol Last Admin: 08/12/17 06:01 Dose: Not Given Insulin Detemir (Levemir Vial) 15 units SQ HS [facility] Last Admin: 08/11/17 21:15 Dose: 15 units Insulin Detemir (Levemir Vial) 22 units SQ AM [facility] Last Admin: 08/12/17 06:00 Dose: 22 units Nicotine (Nicoderm Patch -) 21 mg TD DAILY [facility] Last Admin: 08/12/17 11:21 Dose: 21 mg Nicotine Polacrilex (Nicorette Gum -) 2 mg BUC Q2H PRN PRN Reason: NICOTINE REPLACEMENT RX Ondansetron HCl (Zofran Odt -) 8 mg SL Q6H PRN PRN Reason: NAUSEA AND/OR VOMITING Pantoprazole Sodium (Protonix -) 40 mg PO BID [facility] Last Admin: 08/12/17 11:21 Dose: 40 mg Multivit/Folic Acid/Iron ( Vitamins (Sjr) -) 1 tab PO DAILY [facility] Last Admin: 08/12/17 11:20 Dose: 1 tab Sucralfate (Carafate Oral Suspension -) 1 gm PO QID [facility] Last Admin: 08/12/17 11:21 Dose: 1 gm Thiamine HCl (Vitamin B1 -) 100 mg PO HS [facility] Last Admin: 08/11/17 21:13 Dose: 100 mg Zolpidem Tartrate (Ambien -) 10 mg PO HS PRN PRN Reason: INSOMNIA Last Admin: 08/10/17 22:43 Dose: 10 mg - Objective Vital Signs: Vital Signs Temperature 98.0 F 08/12/17 06:00 Pulse Rate 89 08/12/17 06:00 Respiratory Rate 18 08/12/17 06:00 Blood Pressure 120/75 08/12/17 06:00 O2 Sat by Pulse Oximetry (%) 95 08/11/17 21:51 Constitutional: Yes: No Distress, Calm Eyes: Yes: Conjunctiva Clear, EOM Intact HENT: Yes: Atraumatic, Normocephalic Cardiovascular: Yes: Regular Rate and Rhythm Respiratory: Yes: Regular, Diminished Gastrointestinal: Yes: Normal Bowel Sounds, Soft. No: Distention, Tenderness Edema: No Neurological: Yes: Alert, Oriented Psychiatric: Yes: Alert, Oriented Labs: CBC, BMP 08/11/17 07:00 08/11/17 07:00 INR, PTT INR 1.02 (0.82-1.09) 07/26/17 05:55 Fibrinogen 788.0 mg/dL (238-498) H 07/27/17 06:15 - ....Imaging Chest X-ray: Report Reviewed, Image Reviewed EKG: Report Reviewed, Image Reviewed Other: Report Reviewed, Image Reviewed Assessment/Plan IVDA with with MRSA sepsis, evidence of septic emboli, pleural effusions, and initial clinical concern for Endocarditis, PEG no echo evidence of endocarditis. REC: Clinically improved, but now with loculated pleural effusion s/p left chest tube placement. HR normal now with overall improved clinical status WBC, fever improved; cultures have cleared. Chest tube management
--- NOTE | 2017-08-12 14:15 | PN ---
Progress Note, Physician Chief Complaint: Awake, alert. Supine in bed. C/O discomfort at chest tube site Afebrile WBC WNL Blood c/s (3/2) no growth Tolerating antibiotics - Current Medication List Current Medications: Active Medications Acetaminophen (Tylenol -) 650 mg PO Q6H PRN PRN Reason: FEVER Buprenorphine/Naloxone (Suboxone 8mg/2mg Sl Film -) 1 each SL DAILY [facility] Last Admin: 08/12/17 11:21 Dose: 1 each Clonidine (Catapres -) 0.1 mg PO BID [facility] Last Admin: 08/12/17 11:20 Dose: 0.1 mg Cyclobenzaprine HCl (Flexeril -) 10 mg PO TID [facility] Last Admin: 08/12/17 05:56 Dose: 10 mg Enoxaparin Sodium (Lovenox -) 40 mg SQ DAILY [facility] Last Admin: 08/12/17 11:23 Dose: 40 mg Gabapentin (Neurontin -) 300 mg PO TID [facility] Last Admin: 08/12/17 05:56 Dose: 300 mg Ceftaroline Fosamil 600 mg/ (Dextrose) 100 mls @ 200 mls/hr IVPB TID [facility] PRN Reason: Protocol Last Admin: 08/12/17 05:56 Dose: 200 mls/hr TELAVANCIN HCL 700 mg/ (Dextrose) 292 mls @ 292 mls/hr IVPB DAILY [facility] Last Admin: 08/12/17 11:35 Dose: 292 mls/hr Insulin Aspart (Novolog Vial Sliding Scale -) 1 vial SQ ACHS [facility] PRN Reason: Protocol Last Admin: 08/12/17 06:01 Dose: Not Given Insulin Detemir (Levemir Vial) 15 units SQ HS [facility] Last Admin: 08/11/17 21:15 Dose: 15 units Insulin Detemir (Levemir Vial) 22 units SQ AM [facility] Last Admin: 08/12/17 06:00 Dose: 22 units Nicotine (Nicoderm Patch -) 21 mg TD DAILY [facility] Last Admin: 08/12/17 11:21 Dose: 21 mg Nicotine Polacrilex (Nicorette Gum -) 2 mg BUC Q2H PRN PRN Reason: NICOTINE REPLACEMENT RX Ondansetron HCl (Zofran Odt -) 8 mg SL Q6H PRN PRN Reason: NAUSEA AND/OR VOMITING Pantoprazole Sodium (Protonix -) 40 mg PO BID [facility] Last Admin: 08/12/17 11:21 Dose: 40 mg Multivit/Folic Acid/Iron ( Vitamins (Sjr) -) 1 tab PO DAILY [facility] Last Admin: 08/12/17 11:20 Dose: 1 tab Sucralfate (Carafate Oral Suspension -) 1 gm PO QID [facility] Last Admin: 08/12/17 11:21 Dose: 1 gm Thiamine HCl (Vitamin B1 -) 100 mg PO HS [facility] Last Admin: 08/11/17 21:13 Dose: 100 mg Zolpidem Tartrate (Ambien -) 10 mg PO HS PRN PRN Reason: INSOMNIA Last Admin: 08/10/17 22:43 Dose: 10 mg - Objective Vital Signs: Vital Signs Temperature 98.2 F 08/12/17 13:59 Pulse Rate 90 08/12/17 13:59 Respiratory Rate 18 08/12/17 13:59 Blood Pressure 136/90 08/12/17 13:59 O2 Sat by Pulse Oximetry (%) 95 08/11/17 21:51 Constitutional: Yes: Pallor, Thin Cardiovascular: Yes: Regular Rate and Rhythm, S1, S2 Respiratory: Yes: Diminished, Other (decreased BS L base + catheter in place) Gastrointestinal: Yes: Normal Bowel Sounds, Soft. No: Tenderness Edema: No Labs: CBC, BMP 08/11/17 07:00 08/11/17 07:00 INR, PTT INR 1.02 (0.82-1.09) 07/26/17 05:55 Fibrinogen 788.0 mg/dL (238-498) H 07/27/17 06:15 Assessment/Plan MRSA bacteremia Pleural effusions s/p chest tube IDDM Chronic liver disease Continue ceftaroline/ Telavancin
--- NOTE | 2017-08-12 16:56 | PN ---
Progress Note, Physician History of Present Illness: Pt denies any pain - Current Medication List Current Medications: Active Medications Acetaminophen (Tylenol -) 650 mg PO Q6H PRN PRN Reason: FEVER Buprenorphine/Naloxone (Suboxone 8mg/2mg Sl Film -) 1 each SL DAILY [facility] Last Admin: 08/12/17 11:21 Dose: 1 each Clonidine (Catapres -) 0.1 mg PO BID [facility] Last Admin: 08/12/17 11:20 Dose: 0.1 mg Cyclobenzaprine HCl (Flexeril -) 10 mg PO TID [facility] Last Admin: 08/12/17 14:55 Dose: 10 mg Enoxaparin Sodium (Lovenox -) 40 mg SQ DAILY [facility] Last Admin: 08/12/17 11:23 Dose: 40 mg Gabapentin (Neurontin -) 300 mg PO TID [facility] Last Admin: 08/12/17 14:55 Dose: 300 mg Ceftaroline Fosamil 600 mg/ (Dextrose) 100 mls @ 200 mls/hr IVPB TID [facility] PRN Reason: Protocol Last Admin: 08/12/17 14:55 Dose: 200 mls/hr TELAVANCIN HCL 700 mg/ (Dextrose) 292 mls @ 292 mls/hr IVPB DAILY [facility] Last Admin: 08/12/17 11:35 Dose: 292 mls/hr Insulin Aspart (Novolog Vial Sliding Scale -) 1 vial SQ ACHS [facility] PRN Reason: Protocol Last Admin: 08/12/17 14:50 Dose: Not Given Insulin Detemir (Levemir Vial) 15 units SQ HS [facility] Last Admin: 08/11/17 21:15 Dose: 15 units Insulin Detemir (Levemir Vial) 22 units SQ AM [facility] Last Admin: 08/12/17 06:00 Dose: 22 units Nicotine (Nicoderm Patch -) 21 mg TD DAILY [facility] Last Admin: 08/12/17 11:21 Dose: 21 mg Nicotine Polacrilex (Nicorette Gum -) 2 mg BUC Q2H PRN PRN Reason: NICOTINE REPLACEMENT RX Ondansetron HCl (Zofran Odt -) 8 mg SL Q6H PRN PRN Reason: NAUSEA AND/OR VOMITING Pantoprazole Sodium (Protonix -) 40 mg PO BID [facility] Last Admin: 08/12/17 11:21 Dose: 40 mg Multivit/Folic Acid/Iron ( Vitamins (Sjr) -) 1 tab PO DAILY [facility] Last Admin: 08/12/17 11:20 Dose: 1 tab Sucralfate (Carafate Oral Suspension -) 1 gm PO QID [facility] Last Admin: 08/12/17 14:55 Dose: 1 gm Thiamine HCl (Vitamin B1 -) 100 mg PO HS [facility] Last Admin: 08/11/17 21:13 Dose: 100 mg Zolpidem Tartrate (Ambien -) 10 mg PO HS PRN PRN Reason: INSOMNIA Last Admin: 08/10/17 22:43 Dose: 10 mg - Objective Vital Signs: Vital Signs Temperature 98.2 F 08/12/17 13:59 Pulse Rate 90 08/12/17 13:59 Respiratory Rate 18 08/12/17 13:59 Blood Pressure 136/90 08/12/17 13:59 O2 Sat by Pulse Oximetry (%) 95 08/12/17 10:00 Neck: Yes: WNL, Supple Cardiovascular: Yes: WNL, Regular Rate and Rhythm Respiratory: Yes: Other (Lt chest tube w/ minimal drainage) Gastrointestinal: Yes: WNL, Normal Bowel Sounds, Soft Labs: CBC, BMP 08/11/17 07:00 08/11/17 07:00 INR, PTT INR 1.02 (0.82-1.09) 07/26/17 05:55 Fibrinogen 788.0 mg/dL (238-498) H 07/27/17 06:15 Problem List - Problems (1) Sepsis Assessment/Plan: S/P I&D/debridement/fasciotomy Lt forearm MRSA Bacteremia/supprative thrombophlebitis Repeat BC remain negative IV telavancin/ceftaroline as per ID PEG was done and did not show any vegetations Code(s): A41.9 - SEPSIS, UNSPECIFIED ORGANISM (2) Diabetic ketoacidosis Assessment/Plan: Cont levemir Cont sliding scale w/ coverge Code(s): E13.10 - OTH DIABETES MELLITUS WITH KETOACIDOSIS WITHOUT COMA (3) Thrombocytosis Code(s): D47.3 - ESSENTIAL (HEMORRHAGIC) THROMBOCYTHEMIA (4) Anemia Code(s): D64.9 - ANEMIA, UNSPECIFIED (5) Opioid dependence with withdrawal Assessment/Plan: Cont suboxone Code(s): F11.23 - OPIOID DEPENDENCE WITH WITHDRAWAL
[2017-08-12] MEDS ORDERED: INSULIN (NOVOLOG) ASPART 100 UNITS/ML 10ML VIAL ONE (21:19)
[2017-08-12] MEDS: ZOLPIDEM TARTRATE 5 MG TABLET PO PRN (21:26)
[2017-08-12] MEDS: THIAMINE HCL 100 MG TABLET (FP) PO SCH (21:26)
--- NOTE | 2017-08-12 22:37 | PN ---
Progress Note, Physician Chief Complaint: comfortable tolerating diet on iv antibiotics History of Present Illness: iddm,sp dka,uncontrolled iddm,admitted with mrsa sepsis,pneumonia blood sugars improving - Current Medication List Current Medications: Active Medications Acetaminophen (Tylenol -) 650 mg PO Q6H PRN PRN Reason: FEVER Buprenorphine/Naloxone (Suboxone 8mg/2mg Sl Film -) 1 each SL DAILY [facility] Last Admin: 08/12/17 11:21 Dose: 1 each Clonidine (Catapres -) 0.1 mg PO BID [facility] Last Admin: 08/12/17 21:26 Dose: 0.1 mg Cyclobenzaprine HCl (Flexeril -) 10 mg PO TID [facility] Last Admin: 08/12/17 21:26 Dose: 10 mg Enoxaparin Sodium (Lovenox -) 40 mg SQ DAILY [facility] Last Admin: 08/12/17 11:23 Dose: 40 mg Gabapentin (Neurontin -) 300 mg PO TID [facility] Last Admin: 08/12/17 21:26 Dose: 300 mg Ceftaroline Fosamil 600 mg/ (Dextrose) 100 mls @ 200 mls/hr IVPB TID [facility] PRN Reason: Protocol Last Admin: 08/12/17 21:28 Dose: 200 mls/hr TELAVANCIN HCL 700 mg/ (Dextrose) 292 mls @ 292 mls/hr IVPB DAILY [facility] Last Admin: 08/12/17 11:35 Dose: 292 mls/hr Insulin Aspart (Novolog Vial Sliding Scale -) 1 vial SQ ACHS [facility] PRN Reason: Protocol Last Admin: 08/12/17 21:27 Dose: 4 units Insulin Detemir (Levemir Vial) 15 units SQ HS [facility] Last Admin: 08/12/17 21:27 Dose: 15 units Insulin Detemir (Levemir Vial) 22 units SQ AM [facility] Last Admin: 08/12/17 06:00 Dose: 22 units Nicotine (Nicoderm Patch -) 21 mg TD DAILY [facility] Last Admin: 08/12/17 11:21 Dose: 21 mg Nicotine Polacrilex (Nicorette Gum -) 2 mg BUC Q2H PRN PRN Reason: NICOTINE REPLACEMENT RX Ondansetron HCl (Zofran Odt -) 8 mg SL Q6H PRN PRN Reason: NAUSEA AND/OR VOMITING Pantoprazole Sodium (Protonix -) 40 mg PO BID [facility] Last Admin: 08/12/17 21:26 Dose: 40 mg Multivit/Folic Acid/Iron ( Vitamins (Sjr) -) 1 tab PO DAILY [facility] Last Admin: 08/12/17 11:20 Dose: 1 tab Sucralfate (Carafate Oral Suspension -) 1 gm PO QID [facility] Last Admin: 08/12/17 21:26 Dose: 1 gm Thiamine HCl (Vitamin B1 -) 100 mg PO HS [facility] Last Admin: 08/12/17 21:26 Dose: 100 mg Zolpidem Tartrate (Ambien -) 10 mg PO HS PRN PRN Reason: INSOMNIA Last Admin: 08/12/17 21:26 Dose: 10 mg - Objective Vital Signs: Vital Signs Temperature 97.7 F 08/12/17 18:05 Pulse Rate 97 H 08/12/17 18:05 Respiratory Rate 20 08/12/17 18:05 Blood Pressure 126/83 08/12/17 18:05 O2 Sat by Pulse Oximetry (%) 95 08/12/17 10:00 Constitutional: Yes: Anxious Eyes: Yes: EOM Intact HENT: Yes: Normocephalic Neck: Yes: Trachea Midline Cardiovascular: Yes: Tachycardia Respiratory: Yes: Cough, SOB on Exertion, Tachypnea Gastrointestinal: Yes: Normal Bowel Sounds ...Rectal Exam: Yes: Deferred Genitourinary: Yes: WNL Breast(s): Yes: WNL Musculoskeletal: Yes: Muscle Weakness Edema: No Peripheral Pulses WNL: Yes Neurological: Yes: Alert, Oriented Labs: CBC, BMP 08/11/17 07:00 08/11/17 07:00 INR, PTT INR 1.02 (0.82-1.09) 07/26/17 05:55 Fibrinogen 788.0 mg/dL (238-498) H 07/27/17 06:15 Problem List - Problems (1) Abscess Code(s): L02.91 - CUTANEOUS ABSCESS, UNSPECIFIED (2) Abscess of forearm Code(s): L02.419 - CUTANEOUS ABSCESS OF LIMB, UNSPECIFIED (3) DKA, type 1 Code(s): E10.10 - TYPE 1 DIABETES MELLITUS WITH KETOACIDOSIS WITHOUT COMA Qualifiers: Diabetes mellitus complication detail: without coma Qualified Code(s): E10.10 - Type 1 diabetes mellitus with ketoacidosis without coma (4) Diabetic ketoacidosis Code(s): E13.10 - OTH DIABETES MELLITUS WITH KETOACIDOSIS WITHOUT COMA (5) Gram-positive bacteremia Code(s): R78.81 - BACTEREMIA (6) Hypokalemia Code(s): E87.6 - HYPOKALEMIA (7) Sepsis Code(s): A41.9 - SEPSIS, UNSPECIFIED ORGANISM (8) Thrombophlebitis arm Code(s): I80.8 - PHLEBITIS AND THROMBOPHLEBITIS OF OTHER SITES Assessment/Plan Current Active Problems Abscess (Acute) Abscess of forearm (Acute) Abscess of left forearm (Acute) DKA, type 1 (Acute) Diabetic ketoacidosis (Acute) Encounter for monitoring Suboxone maintenance therapy (Acute) Esophagitis (Acute) Gram-positive bacteremia (Acute) Hypoalbuminemia (Acute) Hypokalemia (Acute) Infective endocarditis (Acute) MRSA (methicillin resistant Staphylococcus aureus) septicemia (Acute) Patent foramen ovale (Acute) Pleural effusion (Acute) Sepsis (Acute) Sinus tachycardia (Acute) Substance abuse (Acute) Thrombocytosis (Acute) Thrombophlebitis arm (Acute) Laboratory Results - last 24 hr 08/12/17 08/12/17 08/12/17 05:39 12:26 16:45 POC Glucometer 147 107 98 08/12/17 21:15 POC Glucometer 247 plan: bgm achs novolog insulin levemir 22 u am levemir 10 units hs
[2017-08-13] MEDS ORDERED: PT OWN MED DRAWER 7, Y5N ONE ×2 (05:48→15:20)
[2017-08-13] MEDS: GABAPENTIN 300 MG CAPSULE (FP) PO SCH ×3 (05:51→21:36)
[2017-08-13] MEDS: CYCLOBENZAPRINE HCL 10 MG TABLET (FP) PO SCH ×3 (05:52→21:36)
[2017-08-13] MEDS: CEFTAROLINE FOSAMIL ACETATE 600 MG in DEXTROSE 5%-WATER - 100 ML IVPB SCH ×3 (05:52→21:35)
[2017-08-13] MEDS: INSULIN DETEMIR 100 UNITS/ML MDV SQ SCH (06:29)
[2017-08-13] MEDS: INSULIN SLIDING SCALE (NOVOLOG) 1 VIAL SQ SCH ×4 (06:29→21:37)
[2017-08-13] MEDS ORDERED: INSULIN (NOVOLOG) ASPART 100 UNITS/ML 10ML VIAL ONE (06:43)
--- NOTE | 2017-08-13 09:49 | PN ---
Progress Note, Physician Chief Complaint: IVDA with left arm cellulitis and infected thrombophlebitis History of Present Illness: 21yo LHD male PMH type 1 DM, current IV heroin user, Hepatitis C presented with altered mental status and generalized weakness. Complains of some pain in the left arm. CT scan of the chest reveals a presumed septic pneumonia. Left arm is much improved. He has no other complaints. - Current Medication List Current Medications: Active Medications Acetaminophen (Tylenol -) 650 mg PO Q6H PRN PRN Reason: FEVER Buprenorphine/Naloxone (Suboxone 8mg/2mg Sl Film -) 1 each SL DAILY [facility] Last Admin: 08/12/17 11:21 Dose: 1 each Clonidine (Catapres -) 0.1 mg PO BID [facility] Last Admin: 08/12/17 21:26 Dose: 0.1 mg Cyclobenzaprine HCl (Flexeril -) 10 mg PO TID [facility] Last Admin: 08/13/17 05:52 Dose: 10 mg Enoxaparin Sodium (Lovenox -) 40 mg SQ DAILY [facility] Last Admin: 08/12/17 11:23 Dose: 40 mg Gabapentin (Neurontin -) 300 mg PO TID [facility] Last Admin: 08/13/17 05:51 Dose: 300 mg Ceftaroline Fosamil 600 mg/ (Dextrose) 100 mls @ 200 mls/hr IVPB TID [facility] PRN Reason: Protocol Last Admin: 08/13/17 05:52 Dose: 200 mls/hr TELAVANCIN HCL 700 mg/ (Dextrose) 292 mls @ 292 mls/hr IVPB DAILY [facility] Last Admin: 08/12/17 11:35 Dose: 292 mls/hr Insulin Aspart (Novolog Vial Sliding Scale -) 1 vial SQ ACHS [facility] PRN Reason: Protocol Last Admin: 08/13/17 06:29 Dose: 4 units Insulin Detemir (Levemir Vial) 22 units SQ AM [facility] Last Admin: 08/13/17 06:29 Dose: 22 units Insulin Detemir (Levemir Vial) 10 units SQ HS [facility] Nicotine (Nicoderm Patch -) 21 mg TD DAILY [facility] Last Admin: 08/12/17 11:21 Dose: 21 mg Nicotine Polacrilex (Nicorette Gum -) 2 mg BUC Q2H PRN PRN Reason: NICOTINE REPLACEMENT RX Ondansetron HCl (Zofran Odt -) 8 mg SL Q6H PRN PRN Reason: NAUSEA AND/OR VOMITING Pantoprazole Sodium (Protonix -) 40 mg PO BID [facility] Last Admin: 08/12/17 21:26 Dose: 40 mg Multivit/Folic Acid/Iron ( Vitamins (Sjr) -) 1 tab PO DAILY [facility] Last Admin: 08/12/17 11:20 Dose: 1 tab Sucralfate (Carafate Oral Suspension -) 1 gm PO QID [facility] Last Admin: 08/12/17 21:26 Dose: 1 gm Thiamine HCl (Vitamin B1 -) 100 mg PO HS [facility] Last Admin: 08/12/17 21:26 Dose: 100 mg Zolpidem Tartrate (Ambien -) 10 mg PO HS PRN PRN Reason: INSOMNIA Last Admin: 08/12/17 21:26 Dose: 10 mg - Objective Vital Signs: Vital Signs Temperature 98.1 F 08/13/17 06:00 Pulse Rate 95 H 08/13/17 06:00 Respiratory Rate 20 08/13/17 06:00 Blood Pressure 126/84 08/13/17 06:00 O2 Sat by Pulse Oximetry (%) 94 L 08/12/17 22:00 Vital Signs Period Temp Pulse Resp BP Sys/Nolan Pulse Ox Last 24 Hr 97.7 F-98.2 F 90-97 18-20 126-139/83-90 94-94 Constitutional: Yes: No Distress, Calm, Thin Eyes: Yes: Conjunctiva Clear, EOM Intact HENT: Yes: Atraumatic, Normocephalic Neck: Yes: Supple, Trachea Midline Cardiovascular: Yes: Regular Rate and Rhythm, S1, S2 Respiratory: Yes: Regular, CTA Bilaterally Gastrointestinal: Yes: Normal Bowel Sounds, Soft ...Rectal Exam: Yes: Deferred Genitourinary: No: CVA Tenderness - Left, CVA Tenderness - Right Extremities: No: Cool, Cyanosis Edema: No Peripheral Pulses WNL: Yes Wound/Incision: Yes: Clean/Dry, Unapproximated (Dressing removed and replaced). No: Draining, Reddened, Bleeding Neurological: Yes: Alert, Oriented Psychiatric: Yes: Alert, Oriented Labs: CBC, BMP 08/11/17 07:00 08/11/17 07:00 INR, PTT INR 1.02 (0.82-1.09) 07/26/17 05:55 Fibrinogen 788.0 mg/dL (238-498) H 07/27/17 06:15 Problem List - Problems (1) MRSA (methicillin resistant Staphylococcus aureus) septicemia Assessment/Plan: 21 yo LHD male with Hepatitis C, DM type 1 in DKA with aggressive left forearm cellulitis, thrombophlebitis, and draining abscess at the site of infecting IV drugs. MRSA septicemia, secondary to injecting heroin with contaminated needles. POD#16 s/p I&D and debridement of infected thrombophlebitis left forearm. The edema in the left arm is largely resolved. WBC normal range, blood cultures are clearing. Physical therapy follow-up for ROM left elbow extension Dressing Left forearm/ antecubital fossa daily Wound Measurement: two linear [id number], yellow stained fibrinous exudate soft tissue, new granulation Dressing instructions: oil emulsion dressing, 4X4 gauze sponges, Aaron wrap Can follow up after discharge Code(s): A41.02 - SEPSIS DUE TO METHICILLIN RESISTANT STAPHYLOCOCCUS AUREUS (2) Thrombophlebitis arm Code(s): I80.8 - PHLEBITIS AND THROMBOPHLEBITIS OF OTHER SITES (3) Abscess of forearm Code(s): L02.419 - CUTANEOUS ABSCESS OF LIMB, UNSPECIFIED (4) Opioid dependence with withdrawal Code(s): F11.23 - OPIOID DEPENDENCE WITH WITHDRAWAL (5) Diabetes Code(s): E11.9 - TYPE 2 DIABETES MELLITUS WITHOUT COMPLICATIONS Qualifiers: Diabetes mellitus type: type 1 Diabetes mellitus complication status: with ketoacidosis Diabetes mellitus complication detail: without coma Qualified Code(s): E10.10 - Type 1 diabetes mellitus with ketoacidosis without coma
[2017-08-13] MEDS: PRENATAL VITAMINS W/ FOLIC ACID TABLET (FP) PO SCH (10:17)
[2017-08-13] MEDS: SUCRALFATE 1 GM/10 ML UNIT DOSE CUPS PO SCH ×4 (10:17→21:35)
[2017-08-13] MEDS: cloNIDine HCL 0.1 MG TABLET PO SCH ×2 (10:18→21:36)
[2017-08-13] MEDS: PANTOPRAZOLE 40 MG TABLET (FP) PO SCH ×2 (10:18→21:36)
[2017-08-13] MEDS: NICOTINE 21 MG/24 HOURS TOPICAL PATCH TD SCH (10:18)
[2017-08-13] MEDS: ENOXAPARIN NA (PORCINE) 40 MG/0.4 ML DISP.SYRIN SQ SCH (10:18)
[2017-08-13] MEDS: BUPRENORPHINE/NALOXONE 8 MG/2 MG FILM PACKET SL SCH (10:18)
--- NOTE | 2017-08-13 10:36 | PN ---
Progress Note, Physician Chief Complaint: ID Televancin and Ceftaroline continue Blood cultures since 08/05 no growth Chest tube still in - Current Medication List Current Medications: Active Medications Acetaminophen (Tylenol -) 650 mg PO Q6H PRN PRN Reason: FEVER Buprenorphine/Naloxone (Suboxone 8mg/2mg Sl Film -) 1 each SL DAILY [facility] Last Admin: 08/13/17 10:18 Dose: 1 each Clonidine (Catapres -) 0.1 mg PO BID [facility] Last Admin: 08/13/17 10:18 Dose: 0.1 mg Cyclobenzaprine HCl (Flexeril -) 10 mg PO TID [facility] Last Admin: 08/13/17 05:52 Dose: 10 mg Enoxaparin Sodium (Lovenox -) 40 mg SQ DAILY [facility] Last Admin: 08/13/17 10:18 Dose: 40 mg Gabapentin (Neurontin -) 300 mg PO TID [facility] Last Admin: 08/13/17 05:51 Dose: 300 mg Ceftaroline Fosamil 600 mg/ (Dextrose) 100 mls @ 200 mls/hr IVPB TID [facility] PRN Reason: Protocol Last Admin: 08/13/17 05:52 Dose: 200 mls/hr TELAVANCIN HCL 700 mg/ (Dextrose) 292 mls @ 292 mls/hr IVPB DAILY [facility] Last Admin: 08/12/17 11:35 Dose: 292 mls/hr Insulin Aspart (Novolog Vial Sliding Scale -) 1 vial SQ ACHS [facility] PRN Reason: Protocol Last Admin: 08/13/17 06:29 Dose: 4 units Insulin Detemir (Levemir Vial) 22 units SQ AM [facility] Last Admin: 08/13/17 06:29 Dose: 22 units Insulin Detemir (Levemir Vial) 10 units SQ HS [facility] Nicotine (Nicoderm Patch -) 21 mg TD DAILY [facility] Last Admin: 08/13/17 10:18 Dose: 21 mg Nicotine Polacrilex (Nicorette Gum -) 2 mg BUC Q2H PRN PRN Reason: NICOTINE REPLACEMENT RX Ondansetron HCl (Zofran Odt -) 8 mg SL Q6H PRN PRN Reason: NAUSEA AND/OR VOMITING Pantoprazole Sodium (Protonix -) 40 mg PO BID [facility] Last Admin: 08/13/17 10:18 Dose: 40 mg Multivit/Folic Acid/Iron ( Vitamins (Sjr) -) 1 tab PO DAILY [facility] Last Admin: 08/13/17 10:17 Dose: 1 tab Sucralfate (Carafate Oral Suspension -) 1 gm PO QID [facility] Last Admin: 08/13/17 10:17 Dose: 1 gm Thiamine HCl (Vitamin B1 -) 100 mg PO HS [facility] Last Admin: 08/12/17 21:26 Dose: 100 mg Zolpidem Tartrate (Ambien -) 10 mg PO HS PRN PRN Reason: INSOMNIA Last Admin: 08/12/17 21:26 Dose: 10 mg - Objective Vital Signs: Vital Signs Temperature 98.1 F 08/13/17 06:00 Pulse Rate 95 H 08/13/17 06:00 Respiratory Rate 20 08/13/17 06:00 Blood Pressure 126/84 08/13/17 06:00 O2 Sat by Pulse Oximetry (%) 94 L 08/12/17 22:00 Constitutional: Yes: No Distress Extremities: Yes: Other (left arm wounds clean limited range of motion as per Dr Beauchamp) Labs: CBC, BMP 08/11/17 07:00 08/11/17 07:00 INR, PTT INR 1.02 (0.82-1.09) 07/26/17 05:55 Fibrinogen 788.0 mg/dL (238-498) H 07/27/17 06:15 Assessment/Plan Microbiology 08/05/17 06:00 Blood - Peripheral Venous Blood Culture - Final NO GROWTH AFTER 5 DAYS INCUBATION 08/04/17 16:00 Pleural Fluid AFB Smear Concentration - Final 08/04/17 16:00 Pleural Fluid Mycobacterial Culture - Preliminary Laboratory Tests 08/11/17 07:00 WBC 7.3 RBC 2.66 L Hct 24.6 L Plt Count 565 H Assessment MRSA bacteremia with necrotizing PNA with effusions ( left chest tube) Plan BY tomorrow will stop Ceftaroline 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
[2017-08-13] MEDS: DEXTROSE 5% IVPB SCH (11:01)
[2017-08-13] MEDS: TELAVANCIN HCL IVPB SCH (11:01)
[2017-08-13] MEDS: WATER IVPB SCH (11:01)
--- NOTE | 2017-08-13 14:59 | PN ---
Progress Note, Physician History of Present Illness: PULMONARY ALERT,NAD,-SOB,-COUGH,-CP - Current Medication List Current Medications: Active Medications Acetaminophen (Tylenol -) 650 mg PO Q6H PRN PRN Reason: FEVER Buprenorphine/Naloxone (Suboxone 8mg/2mg Sl Film -) 1 each SL DAILY [facility] Last Admin: 08/13/17 10:18 Dose: 1 each Clonidine (Catapres -) 0.1 mg PO BID [facility] Last Admin: 08/13/17 10:18 Dose: 0.1 mg Cyclobenzaprine HCl (Flexeril -) 10 mg PO TID [facility] Last Admin: 08/13/17 14:38 Dose: 10 mg Enoxaparin Sodium (Lovenox -) 40 mg SQ DAILY [facility] Last Admin: 08/13/17 10:18 Dose: 40 mg Gabapentin (Neurontin -) 300 mg PO TID [facility] Last Admin: 08/13/17 14:38 Dose: 300 mg TELAVANCIN HCL 700 mg/ (Dextrose) 292 mls @ 292 mls/hr IVPB DAILY [facility] Last Admin: 08/13/17 11:01 Dose: 292 mls/hr Ceftaroline Fosamil 600 mg/ (Dextrose) 100 mls @ 100 mls/hr IVPB TID [facility] PRN Reason: Protocol Stop: 08/14/17 10:00 Insulin Aspart (Novolog Vial Sliding Scale -) 1 vial SQ ACHS [facility] PRN Reason: Protocol Last Admin: 08/13/17 11:40 Dose: 2 units Insulin Detemir (Levemir Vial) 22 units SQ AM [facility] Last Admin: 08/13/17 06:29 Dose: 22 units Insulin Detemir (Levemir Vial) 10 units SQ HS [facility] Nicotine (Nicoderm Patch -) 21 mg TD DAILY [facility] Last Admin: 08/13/17 10:18 Dose: 21 mg Nicotine Polacrilex (Nicorette Gum -) 2 mg BUC Q2H PRN PRN Reason: NICOTINE REPLACEMENT RX Ondansetron HCl (Zofran Odt -) 8 mg SL Q6H PRN PRN Reason: NAUSEA AND/OR VOMITING Pantoprazole Sodium (Protonix -) 40 mg PO BID [facility] Last Admin: 08/13/17 10:18 Dose: 40 mg Multivit/Folic Acid/Iron ( Vitamins (Sjr) -) 1 tab PO DAILY [facility] Last Admin: 08/13/17 10:17 Dose: 1 tab Sucralfate (Carafate Oral Suspension -) 1 gm PO QID [facility] Last Admin: 08/13/17 14:38 Dose: 1 gm Thiamine HCl (Vitamin B1 -) 100 mg PO HS [facility] Last Admin: 08/12/17 21:26 Dose: 100 mg Zolpidem Tartrate (Ambien -) 10 mg PO HS PRN PRN Reason: INSOMNIA Last Admin: 08/12/17 21:26 Dose: 10 mg - Objective Vital Signs: Vital Signs Temperature 98.7 F 08/13/17 14:45 Pulse Rate 109 H 08/13/17 14:45 Respiratory Rate 18 08/13/17 14:45 Blood Pressure 144/85 08/13/17 14:45 O2 Sat by Pulse Oximetry (%) 94 L 08/12/17 22:00 Constitutional: Yes: Calm, Thin Eyes: Yes: WNL HENT: Yes: WNL Neck: Yes: WNL Cardiovascular: Yes: Regular Rate and Rhythm, S1, S2 Respiratory: Yes: Diminished Gastrointestinal: Yes: Normal Bowel Sounds, Soft Extremities: Yes: WNL Edema: No Labs: CBC, BMP 08/11/17 07:00 Problem List - Problems (1) Abscess Code(s): L02.91 - CUTANEOUS ABSCESS, UNSPECIFIED (2) Gram-positive bacteremia Code(s): R78.81 - BACTEREMIA (3) Infective endocarditis Code(s): I33.0 - ACUTE AND SUBACUTE INFECTIVE ENDOCARDITIS Qualifiers: Infective endocarditis organism: bacterial (4) MRSA (methicillin resistant Staphylococcus aureus) septicemia Code(s): A41.02 - SEPSIS DUE TO METHICILLIN RESISTANT STAPHYLOCOCCUS AUREUS (5) Thrombophlebitis arm Code(s): I80.8 - PHLEBITIS AND THROMBOPHLEBITIS OF OTHER SITES (6) Nicotine dependence Code(s): F17.200 - NICOTINE DEPENDENCE, UNSPECIFIED, UNCOMPLICATED Qualifiers: Nicotine product type: cigarettes Substance use status: uncomplicated Qualified Code(s): F17.210 - Nicotine dependence, cigarettes, uncomplicated Assessment/Plan A/P Persistent MRSA Bacteremia/LUE Abscess s/p debridement Lung Nodules likely Septic Emboli Diabetic Ketoacidosis resolved Septic Shock resolving Thrombocytopenia improved Acute Kidney Injury improved Lactic Acidosis resolved +Troponins likely Demand Ischemia IVDU/Polysubstance Abuse Anemia Pleural effusion - antibiotics - monitor urine output, creatinine - monitor H/H - protonix - glucose control - DVT prophylaxis DR BRIONES
--- NOTE | 2017-08-13 19:05 | PN ---
Progress Note, Physician - Current Medication List Current Medications: Active Medications Acetaminophen (Tylenol -) 650 mg PO Q6H PRN PRN Reason: FEVER Buprenorphine/Naloxone (Suboxone 8mg/2mg Sl Film -) 1 each SL DAILY [facility] Last Admin: 08/13/17 10:18 Dose: 1 each Clonidine (Catapres -) 0.1 mg PO BID [facility] Last Admin: 08/13/17 10:18 Dose: 0.1 mg Cyclobenzaprine HCl (Flexeril -) 10 mg PO TID [facility] Last Admin: 08/13/17 14:38 Dose: 10 mg Enoxaparin Sodium (Lovenox -) 40 mg SQ DAILY [facility] Last Admin: 08/13/17 10:18 Dose: 40 mg Gabapentin (Neurontin -) 300 mg PO TID [facility] Last Admin: 08/13/17 14:38 Dose: 300 mg TELAVANCIN HCL 700 mg/ (Dextrose) 292 mls @ 292 mls/hr IVPB DAILY [facility] Last Admin: 08/13/17 11:01 Dose: 292 mls/hr Ceftaroline Fosamil 600 mg/ (Dextrose) 100 mls @ 100 mls/hr IVPB TID [facility] PRN Reason: Protocol Stop: 08/14/17 10:00 Last Admin: 08/13/17 15:25 Dose: 100 mls/hr Insulin Aspart (Novolog Vial Sliding Scale -) 1 vial SQ ACHS [facility] PRN Reason: Protocol Last Admin: 08/13/17 16:54 Dose: 4 units Insulin Detemir (Levemir Vial) 22 units SQ AM [facility] Last Admin: 08/13/17 06:29 Dose: 22 units Insulin Detemir (Levemir Vial) 10 units SQ HS [facility] Nicotine (Nicoderm Patch -) 21 mg TD DAILY [facility] Last Admin: 08/13/17 10:18 Dose: 21 mg Nicotine Polacrilex (Nicorette Gum -) 2 mg BUC Q2H PRN PRN Reason: NICOTINE REPLACEMENT RX Ondansetron HCl (Zofran Odt -) 8 mg SL Q6H PRN PRN Reason: NAUSEA AND/OR VOMITING Pantoprazole Sodium (Protonix -) 40 mg PO BID [facility] Last Admin: 08/13/17 10:18 Dose: 40 mg Multivit/Folic Acid/Iron ( Vitamins (Sjr) -) 1 tab PO DAILY [facility] Last Admin: 08/13/17 10:17 Dose: 1 tab Sucralfate (Carafate Oral Suspension -) 1 gm PO QID [facility] Last Admin: 08/13/17 18:17 Dose: 1 gm Thiamine HCl (Vitamin B1 -) 100 mg PO HS [facility] Last Admin: 08/12/17 21:26 Dose: 100 mg Zolpidem Tartrate (Ambien -) 10 mg PO HS PRN PRN Reason: INSOMNIA Last Admin: 08/12/17 21:26 Dose: 10 mg - Objective Vital Signs: Vital Signs Temperature 98.7 F 08/13/17 14:45 Pulse Rate 109 H 08/13/17 14:45 Respiratory Rate 18 08/13/17 14:45 Blood Pressure 144/85 08/13/17 14:45 O2 Sat by Pulse Oximetry (%) 94 L 08/13/17 09:00 Labs: CBC, BMP 08/11/17 07:00 08/11/17 07:00 INR, PTT INR 1.02 (0.82-1.09) 07/26/17 05:55 Fibrinogen 788.0 mg/dL (238-498) H 07/27/17 06:15 Problem List - Problems (1) Sepsis Code(s): A41.9 - SEPSIS, UNSPECIFIED ORGANISM (2) Diabetic ketoacidosis Code(s): E13.10 - OTH DIABETES MELLITUS WITH KETOACIDOSIS WITHOUT COMA (3) Thrombocytosis Code(s): D47.3 - ESSENTIAL (HEMORRHAGIC) THROMBOCYTHEMIA (4) Anemia Code(s): D64.9 - ANEMIA, UNSPECIFIED (5) Opioid dependence with withdrawal Code(s): F11.23 - OPIOID DEPENDENCE WITH WITHDRAWAL
[2017-08-13] MEDS: THIAMINE HCL 100 MG TABLET (FP) PO SCH (21:36)
[2017-08-13] MEDS: ZOLPIDEM TARTRATE 5 MG TABLET PO PRN (21:36)
[2017-08-13] MEDS ORDERED: INSULIN DETEMIR 100 UNITS/ML MDV SQ SCH (22:00)
[2017-08-14] MEDS: INSULIN DETEMIR 100 UNITS/ML MDV SQ SCH ×2 (06:24→22:44)
[2017-08-14] MEDS: GABAPENTIN 300 MG CAPSULE (FP) PO SCH ×3 (06:24→22:43)
[2017-08-14] MEDS: CYCLOBENZAPRINE HCL 10 MG TABLET (FP) PO SCH ×3 (06:24→22:43)
[2017-08-14] MEDS: CEFTAROLINE FOSAMIL ACETATE 600 MG in DEXTROSE 5%-WATER - 100 ML IVPB SCH (06:24)
[2017-08-14] MEDS: INSULIN SLIDING SCALE (NOVOLOG) 1 VIAL SQ SCH ×5 (06:25→22:44)
[2017-08-14] MEDS ORDERED: PT OWN MED DRAWER 7, Y5N ONE ×2 (09:41→10:27)
--- NOTE | 2017-08-14 09:42 | PN ---
Progress Note, Physician Chief Complaint: IVDA with left arm cellulitis and infected thrombophlebitis History of Present Illness: 21yo LHD male PMH type 1 DM, current IV heroin user, Hepatitis C presented with altered mental status and generalized weakness. No more complaints of pain in the left arm. routine wound care daily. - Current Medication List Current Medications: Active Medications Acetaminophen (Tylenol -) 650 mg PO Q6H PRN PRN Reason: FEVER Buprenorphine/Naloxone (Suboxone 8mg/2mg Sl Film -) 1 each SL DAILY [facility] Last Admin: 08/13/17 10:18 Dose: 1 each Clonidine (Catapres -) 0.1 mg PO BID [facility] Last Admin: 08/13/17 21:36 Dose: 0.1 mg Cyclobenzaprine HCl (Flexeril -) 10 mg PO TID [facility] Last Admin: 08/14/17 06:24 Dose: 10 mg Enoxaparin Sodium (Lovenox -) 40 mg SQ DAILY [facility] Last Admin: 08/13/17 10:18 Dose: 40 mg Gabapentin (Neurontin -) 300 mg PO TID [facility] Last Admin: 08/14/17 06:24 Dose: 300 mg TELAVANCIN HCL 700 mg/ (Dextrose) 292 mls @ 292 mls/hr IVPB DAILY [facility] Last Admin: 08/13/17 11:01 Dose: 292 mls/hr Ceftaroline Fosamil 600 mg/ (Dextrose) 100 mls @ 100 mls/hr IVPB TID [facility] PRN Reason: Protocol Stop: 08/14/17 10:00 Last Admin: 08/14/17 06:24 Dose: 100 mls/hr Insulin Aspart (Novolog Vial Sliding Scale -) 1 vial SQ ACHS [facility] PRN Reason: Protocol Last Admin: 08/14/17 06:25 Dose: 6 units Insulin Detemir (Levemir Vial) 22 units SQ AM [facility] Last Admin: 08/14/17 06:24 Dose: 22 units Insulin Detemir (Levemir Vial) 10 units SQ HS [facility] Last Admin: 08/13/17 21:36 Dose: 10 units Nicotine (Nicoderm Patch -) 21 mg TD DAILY [facility] Last Admin: 08/13/17 10:18 Dose: 21 mg Nicotine Polacrilex (Nicorette Gum -) 2 mg BUC Q2H PRN PRN Reason: NICOTINE REPLACEMENT RX Ondansetron HCl (Zofran Odt -) 8 mg SL Q6H PRN PRN Reason: NAUSEA AND/OR VOMITING Pantoprazole Sodium (Protonix -) 40 mg PO BID [facility] Last Admin: 08/13/17 21:36 Dose: 40 mg Multivit/Folic Acid/Iron ( Vitamins (Sjr) -) 1 tab PO DAILY [facility] Last Admin: 08/13/17 10:17 Dose: 1 tab Sucralfate (Carafate Oral Suspension -) 1 gm PO QID [facility] Last Admin: 08/13/17 21:35 Dose: 1 gm Thiamine HCl (Vitamin B1 -) 100 mg PO HS [facility] Last Admin: 08/13/17 21:36 Dose: 100 mg Zolpidem Tartrate (Ambien -) 10 mg PO HS PRN PRN Reason: INSOMNIA Last Admin: 08/13/17 21:36 Dose: 10 mg - Objective Vital Signs: Vital Signs Temperature 97.7 F 08/14/17 06:00 Pulse Rate 116 H 08/14/17 09:27 Respiratory Rate 24 08/14/17 09:27 Blood Pressure 124/80 08/14/17 09:27 O2 Sat by Pulse Oximetry (%) 95 08/13/17 21:00 Vital Signs Period Temp Pulse Resp BP Sys/Nolan Pulse Ox Last 24 Hr 97.7 F-98.7 F 87-116 18-24 124-145/75-85 95 Constitutional: Yes: No Distress, Calm Eyes: Yes: Conjunctiva Clear, EOM Intact HENT: Yes: Atraumatic, Normocephalic Neck: Yes: Supple, Trachea Midline Cardiovascular: Yes: Regular Rate and Rhythm, S1, S2 Respiratory: Yes: Regular, CTA Bilaterally Gastrointestinal: Yes: Normal Bowel Sounds, Soft. No: Tenderness ...Rectal Exam: Yes: Deferred Genitourinary: No: CVA Tenderness - Left, CVA Tenderness - Right Extremities: No: Cool, Cyanosis Peripheral Pulses WNL: Yes Peripheral Pulses: Left Radial: 2+, Right Radial: 2+, Left Doralis Pedis: 2+, Right Dorsalis Pedis: 2+, Left Femoral: 2+, Right Femoral: 2+ Wound/Incision: Yes: Clean/Dry, Well Approximated. No: Draining, Reddened, Bleeding Neurological: Yes: Alert, Oriented Psychiatric: Yes: Alert, Oriented Labs: CBC, BMP 08/11/17 07:00 08/11/17 07:00 INR, PTT INR 1.02 (0.82-1.09) 07/26/17 05:55 Fibrinogen 788.0 mg/dL (238-498) H 07/27/17 06:15 Problem List - Problems (1) MRSA (methicillin resistant Staphylococcus aureus) septicemia Assessment/Plan: 21 yo LHD male with Hepatitis C, DM type 1 in DKA with aggressive left forearm cellulitis, thrombophlebitis, and draining abscess at the site of injecting IV drugs. MRSA septicemia, secondary to injecting heroin with contaminated needles. POD#17 s/p I&D and debridement of infected thrombophlebitis left forearm. The edema in the left arm is largely resolved. WBC normal range, blood cultures are clearing. Physical therapy follow-up for ROM left elbow extension Dressing Left forearm/ antecubital fossa daily Wound Measurement: two linear [id number], yellow stained fibrinous exudate soft tissue, new granulation Dressing instructions: oil emulsion dressing, 4X4 gauze sponges, Aaron wrap Can follow up after discharge Code(s): A41.02 - SEPSIS DUE TO METHICILLIN RESISTANT STAPHYLOCOCCUS AUREUS (2) Thrombophlebitis arm Code(s): I80.8 - PHLEBITIS AND THROMBOPHLEBITIS OF OTHER SITES (3) Abscess of forearm Code(s): L02.419 - CUTANEOUS ABSCESS OF LIMB, UNSPECIFIED (4) Opioid dependence with withdrawal Code(s): F11.23 - OPIOID DEPENDENCE WITH WITHDRAWAL (5) Diabetes Code(s): E11.9 - TYPE 2 DIABETES MELLITUS WITHOUT COMPLICATIONS Qualifiers: Diabetes mellitus type: type 1 Diabetes mellitus complication status: with ketoacidosis Diabetes mellitus complication detail: without coma Qualified Code(s): E10.10 - Type 1 diabetes mellitus with ketoacidosis without coma
[2017-08-14] MEDS: cloNIDine HCL 0.1 MG TABLET PO SCH ×2 (09:46→22:43)
[2017-08-14] MEDS: PANTOPRAZOLE 40 MG TABLET (FP) PO SCH ×2 (09:46→22:44)
[2017-08-14] MEDS: SUCRALFATE 1 GM/10 ML UNIT DOSE CUPS PO SCH ×4 (09:46→22:43)
[2017-08-14] MEDS: NICOTINE 21 MG/24 HOURS TOPICAL PATCH TD SCH (09:46)
[2017-08-14] MEDS: PRENATAL VITAMINS W/ FOLIC ACID TABLET (FP) PO SCH (09:46)
[2017-08-14] MEDS: ENOXAPARIN NA (PORCINE) 40 MG/0.4 ML DISP.SYRIN SQ SCH (09:46)
[2017-08-14] MEDS: BUPRENORPHINE/NALOXONE 8 MG/2 MG FILM PACKET SL SCH (09:47)
[2017-08-14] MEDS: WATER IVPB SCH ×3 (12:12→14:55)
[2017-08-14] MEDS: TELAVANCIN HCL IVPB SCH ×3 (12:12→14:55)
[2017-08-14] MEDS: DEXTROSE 5% IVPB SCH ×3 (12:12→14:55)
--- NOTE | 2017-08-14 12:13 | PN ---
Progress Note (short form) - Note Progress Note: PULMONARY Febrile this AM to 102.1. CXR showing persistent effusions. Last Vital Signs Temp Pulse Resp BP Pulse Ox 102.1 F H 99 H 20 142/79 95 08/14/17 10:12 08/14/17 10:12 08/14/17 10:12 08/14/17 10:12 08/13/17 21:00 Gen: awake, alert Heart: tachycardic, regular Lung: decreased breath sounds at the bases Abd: soft, nontender Ext: LUE edema CBC, BMP 08/11/17 07:00 08/11/17 07:00 Active Medications Acetaminophen (Tylenol -) 650 mg PO Q6H PRN PRN Reason: FEVER Buprenorphine/Naloxone (Suboxone 8mg/2mg Sl Film -) 1 each SL DAILY [facility] Last Admin: 08/14/17 09:47 Dose: 1 each Clonidine (Catapres -) 0.1 mg PO BID [facility] Last Admin: 08/14/17 09:46 Dose: 0.1 mg Cyclobenzaprine HCl (Flexeril -) 10 mg PO TID [facility] Last Admin: 08/14/17 06:24 Dose: 10 mg Enoxaparin Sodium (Lovenox -) 40 mg SQ DAILY [facility] Last Admin: 08/14/17 09:46 Dose: 40 mg Gabapentin (Neurontin -) 300 mg PO TID [facility] Last Admin: 08/14/17 06:24 Dose: 300 mg TELAVANCIN HCL 700 mg/ (Dextrose) 292 mls @ 292 mls/hr IVPB DAILY [facility] Last Admin: 08/14/17 12:12 Dose: 292 mls/hr Insulin Aspart (Novolog Vial Sliding Scale -) 1 vial SQ ACHS [facility] PRN Reason: Protocol Last Admin: 08/14/17 12:09 Dose: 10 units Insulin Detemir (Levemir Vial) 22 units SQ AM [facility] Last Admin: 08/14/17 06:24 Dose: 22 units Insulin Detemir (Levemir Vial) 10 units SQ HS [facility] Last Admin: 08/13/17 21:36 Dose: 10 units Nicotine (Nicoderm Patch -) 21 mg TD DAILY [facility] Last Admin: 08/14/17 09:46 Dose: 21 mg Nicotine Polacrilex (Nicorette Gum -) 2 mg BUC Q2H PRN PRN Reason: NICOTINE REPLACEMENT RX Ondansetron HCl (Zofran Odt -) 8 mg SL Q6H PRN PRN Reason: NAUSEA AND/OR VOMITING Pantoprazole Sodium (Protonix -) 40 mg PO BID [facility] Last Admin: 08/14/17 09:46 Dose: 40 mg Multivit/Folic Acid/Iron ( Vitamins (Sjr) -) 1 tab PO DAILY [facility] Last Admin: 08/14/17 09:46 Dose: 1 tab Sucralfate (Carafate Oral Suspension -) 1 gm PO QID [facility] Last Admin: 08/14/17 09:46 Dose: 1 gm Thiamine HCl (Vitamin B1 -) 100 mg PO HS [facility] Last Admin: 08/13/17 21:36 Dose: 100 mg Zolpidem Tartrate (Ambien -) 10 mg PO HS PRN PRN Reason: INSOMNIA Last Admin: 08/13/17 21:36 Dose: 10 mg A/P MRSA Bacteremia/LUE Abscess s/p debridement Lung Nodules likely Septic Emboli Diabetic Ketoacidosis resolved Septic Shock resolving Thrombocytopenia improved Acute Kidney Injury improved Lactic Acidosis resolved +Troponins likely Demand Ischemia IVDU/Polysubstance Abuse Anemia - continue antibiotics - reculture - thoracic surgery f/u - monitor urine output, creatinine - monitor H/H - protonix - glucose control - DVT prophylaxis
--- NOTE | 2017-08-14 14:14 | PN ---
Physical Exam: Medicine coverage for Dr. Goodwin SUBJECTIVE: Patient seen and examined. He has discomfort to his chest tube side , its hard for him to lay flat. OBJECTIVE: Vital Signs Period Temp Pulse Resp BP Sys/Nolan Pulse Ox Last 24 Hr 97.7 F-98.7 F 87-116 18-24 124-145/75-85 95 PE Neuro: alert, awake, cn 2-12intact Pulm: l lobe diminished + CT serous drainage R side lung clear CV: s1 s2 rrr Abd: s nt nd + bs Ext: left arm dressing intact, no le edema Laboratory Results - last 24 hr 08/13/17 08/13/17 08/14/17 16:51 21:34 06:23 POC Glucometer 232 237 292 08/14/17 12:09 POC Glucometer 381 Active Medications Generic Name Dose Route Start Last Admin Trade Name Freq PRN Reason Stop Dose Admin Acetaminophen 650 mg 08/10/17 20:51 Tylenol - PO Q6H PRN FEVER Buprenorphine/Naloxone 1 each 08/11/17 10:00 08/14/17 09:47 Suboxone 8mg/2mg Sl Film - SL 1 each DAILY [facility] Administration Clonidine 0.1 mg 08/10/17 22:00 08/14/17 09:46 Catapres - PO 0.1 mg BID [facility] Administration Cyclobenzaprine HCl 10 mg 08/10/17 22:00 08/14/17 13:57 Flexeril - PO 10 mg TID [facility] Administration Enoxaparin Sodium 40 mg 08/11/17 10:00 08/14/17 09:46 Lovenox - SQ 40 mg DAILY [facility] Administration Gabapentin 300 mg 08/10/17 22:00 08/14/17 13:57 Neurontin - PO 300 mg TID [facility] Administration TELAVANCIN HCL 700 mg/ 292 mls @ 292 mls/hr 08/11/17 10:00 08/14/17 12:17 Dextrose IVPB Not Given DAILY [facility] Insulin Aspart 1 vial 08/10/17 22:00 08/14/17 12:09 Novolog Vial Sliding Scale - SQ 10 units ACHS [facility] Administration Protocol Insulin Detemir 22 units 08/11/17 07:00 08/14/17 06:24 Levemir Vial SQ 22 units AM [facility] Administration Insulin Detemir 10 units 08/13/17 22:00 08/13/17 21:36 Levemir Vial SQ 10 units HS [facility] Administration Nicotine 21 mg 08/11/17 10:00 08/14/17 09:46 Nicoderm Patch - TD 21 mg DAILY [facility] Administration Nicotine Polacrilex 2 mg 08/10/17 20:51 Nicorette Gum - BUC Q2H PRN NICOTINE REPLACEMENT RX Ondansetron HCl 8 mg 08/10/17 20:51 Zofran Odt - SL Q6H PRN NAUSEA AND/OR VOMITING Pantoprazole Sodium 40 mg 08/10/17 22:00 08/14/17 09:46 Protonix - PO 40 mg BID [facility] Administration Multivit/Folic Acid/Iron 1 tab 08/11/17 10:00 08/14/17 09:46 Vitamins (Sjr) - PO 1 tab DAILY [facility] Administration Sucralfate 1 gm 08/10/17 22:00 08/14/17 13:57 Carafate Oral Suspension - PO 1 gm QID [facility] Administration Thiamine HCl 100 mg 08/10/17 22:00 08/13/17 21:36 Vitamin B1 - PO 100 mg HS [facility] Administration Zolpidem Tartrate 10 mg 08/10/17 10:39 08/13/17 21:36 Ambien - PO 10 mg HS PRN Administration INSOMNIA Microbiology 08/10/17 08:15 Blood Culture - Preliminary Blood - Peripheral Venous NO GROWTH OBTAINED AFTER 96 HOURS, INCUBATION TO CONTINUE FOR 1 DAYS. 08/10/17 08:00 Blood Culture - Preliminary Blood - Peripheral Venous NO GROWTH OBTAINED AFTER 96 HOURS, INCUBATION TO CONTINUE FOR 1 DAYS. Assessment: 21 year old male with PMHx type 1 DM, current IV heroin user on methadone (including methamphetamines, opioid and heroin abuse, on methadone), Hepatitis C admitted with AMS, generalized weakness admitted with sepsis and DKA and LUE cellulitis. Plan: Septic shock d/t MRSA bacteremia d/t LUE abscess s/p debridement - Sepsis resolving - Stop ceftaroline today - Continue Televancin x4 weeks total starting 08/05 - Aaron neg for vegetations Pleural effusions - L chest tube remains - CT surgery to see Lung nodules - Likely septic emboli DM II - DKA resolved - Insulin 22units qam - Insulin 10units HS Thrombocytosis - Improved today Anemia - Hgb stable Opioid dependence with withdrawal - Cont suboxone - Catapress DVT - Lovenox sq Visit type - Emergency Visit Emergency Visit: Yes ED Registration Date: 07/24/17 Care time: The patient presented to the Emergency Department on the above date and was hospitalized for further evaluation of their emergent condition. - New Patient This patient is new to me today: No - Critical Care Critical Care patient: No
[2017-08-14] MEDS ORDERED: INSULIN DETEMIR 100 UNITS/ML MDV SQ SCH (19:47)
[2017-08-14] MEDS: THIAMINE HCL 100 MG TABLET (FP) PO SCH (22:43)
[2017-08-14] MEDS: ZOLPIDEM TARTRATE 5 MG TABLET PO PRN (22:43)
[2017-08-15] MEDS: INSULIN SLIDING SCALE (NOVOLOG) 1 VIAL SQ SCH ×4 (06:17→21:58)
[2017-08-15] MEDS: GABAPENTIN 300 MG CAPSULE (FP) PO SCH ×3 (06:18→21:58)
[2017-08-15] MEDS: CYCLOBENZAPRINE HCL 10 MG TABLET (FP) PO SCH ×3 (06:18→21:58)
--- NOTE | 2017-08-15 09:12 | PN ---
Physical Exam: Medicine coverage for Dr. Goodwin SUBJECTIVE: Patient seen and examined. No acute changes. No fever overnight. OBJECTIVE: Vital Signs Period Temp Pulse Resp BP Sys/Nolan Pulse Ox Last 24 Hr 97.9 F-99.2 F 88-116 18-24 122-134/80-90 94-95 PE Neuro: alert, awake, cn 2-12intact Pulm: l lobe diminished + CT serous drainage R side lung clear CV: s1 s2 rrr Abd: s nt nd + bs Ext: left arm dressing intact, no le edema Laboratory Results - last 24 hr 08/14/17 08/14/17 08/14/17 12:09 17:05 22:41 POC Glucometer 381 300 259 08/15/17 06:16 POC Glucometer 301 Active Medications Generic Name Dose Route Start Last Admin Trade Name Freq PRN Reason Stop Dose Admin Acetaminophen 650 mg 08/10/17 20:51 Tylenol - PO Q6H PRN FEVER Buprenorphine/Naloxone 1 each 08/11/17 10:00 08/14/17 09:47 Suboxone 8mg/2mg Sl Film - SL 1 each DAILY [facility] Administration Clonidine 0.1 mg 08/10/17 22:00 08/14/17 22:43 Catapres - PO 0.1 mg BID [facility] Administration Cyclobenzaprine HCl 10 mg 08/10/17 22:00 08/15/17 06:18 Flexeril - PO 10 mg TID [facility] Administration Enoxaparin Sodium 40 mg 08/11/17 10:00 08/14/17 09:46 Lovenox - SQ 40 mg DAILY [facility] Administration Gabapentin 300 mg 08/10/17 22:00 08/15/17 06:18 Neurontin - PO 300 mg TID [facility] Administration TELAVANCIN HCL 700 mg/ 292 mls @ 292 mls/hr 08/11/17 10:00 08/14/17 14:55 Dextrose IVPB 292 mls/hr DAILY [facility] Administration Insulin Aspart 1 vial 08/10/17 22:00 08/15/17 06:17 Novolog Vial Sliding Scale - SQ 8 units ACHS [facility] Administration Protocol Insulin Detemir 27 units 08/14/17 19:47 08/15/17 06:18 Levemir Vial SQ 27 units AM [facility] Administration Insulin Detemir 15 units 08/14/17 19:47 08/14/17 22:44 Levemir Vial SQ 15 units HS [facility] Administration Nicotine 21 mg 08/11/17 10:00 08/14/17 09:46 Nicoderm Patch - TD 21 mg DAILY [facility] Administration Nicotine Polacrilex 2 mg 08/10/17 20:51 Nicorette Gum - BUC Q2H PRN NICOTINE REPLACEMENT RX Ondansetron HCl 8 mg 08/10/17 20:51 Zofran Odt - SL Q6H PRN NAUSEA AND/OR VOMITING Pantoprazole Sodium 40 mg 08/10/17 22:00 08/14/17 22:44 Protonix - PO 40 mg BID [facility] Administration Multivit/Folic Acid/Iron 1 tab 08/11/17 10:00 08/14/17 09:46 Vitamins (Sjr) - PO 1 tab DAILY [facility] Administration Sucralfate 1 gm 08/10/17 22:00 08/14/17 22:43 Carafate Oral Suspension - PO 1 gm QID [facility] Administration Thiamine HCl 100 mg 08/10/17 22:00 08/14/17 22:43 Vitamin B1 - PO 100 mg HS [facility] Administration Zolpidem Tartrate 10 mg 08/10/17 10:39 08/14/17 22:43 Ambien - PO 10 mg HS PRN Administration INSOMNIA Assessment: 21 year old male with PMHx type 1 DM, current IV heroin user on methadone (including methamphetamines, opioid and heroin abuse, on methadone), Hepatitis C admitted with AMS, generalized weakness admitted with sepsis and DKA and LUE cellulitis. Plan: 1. Septic shock d/t MRSA bacteremia d/t LUE abscess s/p debridement - Sepsis resolving - Ceftaroline stopped 08/14 - Continue Televancin x4 weeks total starting 08/05 (day 10) - Aaron neg for vegetations 2. Pleural effusions - L chest tube remains and not draining per staff internist office based only - Re consult CThx for eval and removal 3. Lung nodules - Likely septic emboli 4. DM II - DKA resolved Increase: - Insulin 30units qam - Insulin 15units HS 5. Thrombocytosis - Trend 6. Anemia - Hgb stable 7. Opioid dependence with withdrawal - Cont suboxone - Catapress 8. DVT - Lovenox sq Visit type - Emergency Visit Emergency Visit: Yes ED Registration Date: 07/24/17 Care time: The patient presented to the Emergency Department on the above date and was hospitalized for further evaluation of their emergent condition. - New Patient This patient is new to me today: No - Critical Care Critical Care patient: No
--- NOTE | 2017-08-15 09:29 | PN ---
Progress Note (short form) - Note Progress Note: ID Ceftaroline Televancin Doing well no complaints Chest tube drainage less Microbiology 08/10/17 08:15 Blood - Peripheral Venous Blood Culture - Final NO GROWTH AFTER 5 DAYS INCUBATION 08/10/17 08:00 Blood - Peripheral Venous Blood Culture - Final NO GROWTH AFTER 5 DAYS INCUBATION 08/06/17 07:50 Blood - Peripheral Venous Blood Culture - Final NO GROWTH AFTER 5 DAYS INCUBATION 08/06/17 07:19 Blood - Peripheral Venous Blood Culture - Final NO GROWTH AFTER 5 DAYS INCUBATION 08/05/17 06:00 Blood - Peripheral Venous Blood Culture - Final NO GROWTH AFTER 5 DAYS INCUBATION 08/01/17 10:43 Blood - Peripheral Venous Blood Culture - Final Presumptive Mrsa (Pbp2a Pos) 08/01/17 10:30 Blood - Peripheral Venous Blood Culture - Final Mr S Aureus Selected Entries 08/15/17 06:00 Temperature 97.9 F Pulse Rate 92 H Respiratory 18 Rate Blood Pressure 133/86 Assessment Persistent MRSA bacteremia pleural effusions chest tube left Necrotizing PNA Last positive blood culture 08/01 ON 08/05 they were sterile so that is starting point for 4 weeks Plan Discharge planning Remove chest tube Thoracic followup[ Now day 10 of Televancin planned 28 days total Stop Magdalena Rojas MD
[2017-08-15] MEDS ORDERED: PT OWN MED DRAWER 7, Y5N ONE ×2 (10:25→10:47)
[2017-08-15] MEDS: DEXTROSE 5% IVPB SCH (10:30)
[2017-08-15] MEDS: TELAVANCIN HCL IVPB SCH (10:30)
[2017-08-15] MEDS: WATER IVPB SCH (10:30)
[2017-08-15] MEDS: PANTOPRAZOLE 40 MG TABLET (FP) PO SCH (10:34)
[2017-08-15] MEDS: SUCRALFATE 1 GM/10 ML UNIT DOSE CUPS PO SCH ×4 (10:34→21:58)
[2017-08-15] MEDS: NICOTINE 21 MG/24 HOURS TOPICAL PATCH TD SCH (10:34)
[2017-08-15] MEDS: cloNIDine HCL 0.1 MG TABLET PO SCH ×2 (10:34→21:58)
[2017-08-15] MEDS: BUPRENORPHINE/NALOXONE 8 MG/2 MG FILM PACKET SL SCH (10:35)
[2017-08-15] MEDS: PRENATAL VITAMINS W/ FOLIC ACID TABLET (FP) PO SCH (10:35)
[2017-08-15] MEDS: ENOXAPARIN NA (PORCINE) 40 MG/0.4 ML DISP.SYRIN SQ SCH (10:35)
[2017-08-15] MEDS ORDERED: INSULIN (NOVOLOG) ASPART 100 UNITS/ML 10ML VIAL ONE (11:51)
--- NOTE | 2017-08-15 12:58 | PN ---
Progress Note, Physician Chief Complaint: IVDA with left arm cellulitis and infected thrombophlebitis History of Present Illness: 21yo LHD male PMH type 1 DM, current IV heroin user, Hepatitis C presented with altered mental status and generalized weakness. No more complaints of pain in the left arm. routine wound care daily. - Current Medication List Current Medications: Active Medications Acetaminophen (Tylenol -) 650 mg PO Q6H PRN PRN Reason: FEVER Buprenorphine/Naloxone (Suboxone 8mg/2mg Sl Film -) 1 each SL DAILY [facility] Last Admin: 08/15/17 10:35 Dose: 1 each Clonidine (Catapres -) 0.1 mg PO BID [facility] Last Admin: 08/15/17 10:34 Dose: 0.1 mg Cyclobenzaprine HCl (Flexeril -) 10 mg PO TID [facility] Last Admin: 08/15/17 06:18 Dose: 10 mg Enoxaparin Sodium (Lovenox -) 40 mg SQ DAILY [facility] Last Admin: 08/15/17 10:35 Dose: 40 mg Gabapentin (Neurontin -) 300 mg PO TID [facility] Last Admin: 08/15/17 06:18 Dose: 300 mg TELAVANCIN HCL 700 mg/ (Dextrose) 292 mls @ 292 mls/hr IVPB DAILY [facility] Last Admin: 08/15/17 10:30 Dose: 292 mls/hr Insulin Aspart (Novolog Vial Sliding Scale -) 1 vial SQ ACHS [facility] PRN Reason: Protocol Last Admin: 08/15/17 11:57 Dose: 6 units Insulin Detemir (Levemir Vial) 27 units SQ AM [facility] Last Admin: 08/15/17 06:18 Dose: 27 units Insulin Detemir (Levemir Vial) 15 units SQ HS [facility] Last Admin: 08/14/17 22:44 Dose: 15 units Nicotine (Nicoderm Patch -) 21 mg TD DAILY [facility] Last Admin: 08/15/17 10:34 Dose: 21 mg Nicotine Polacrilex (Nicorette Gum -) 2 mg BUC Q2H PRN PRN Reason: NICOTINE REPLACEMENT RX Pantoprazole Sodium (Protonix -) 40 mg PO DAILY [facility] Last Admin: 08/15/17 10:34 Dose: 40 mg Multivit/Folic Acid/Iron ( Vitamins (Sjr) -) 1 tab PO DAILY [facility] Last Admin: 08/15/17 10:35 Dose: 1 tab Sucralfate (Carafate Oral Suspension -) 1 gm PO QID [facility] Last Admin: 08/15/17 10:34 Dose: 1 gm Thiamine HCl (Vitamin B1 -) 100 mg PO HS [facility] Last Admin: 08/14/17 22:43 Dose: 100 mg Zolpidem Tartrate (Ambien -) 10 mg PO HS PRN PRN Reason: INSOMNIA Last Admin: 08/14/17 22:43 Dose: 10 mg - Objective Vital Signs: Vital Signs Temperature 99.0 F 08/15/17 10:00 Pulse Rate 104 H 08/15/17 10:00 Respiratory Rate 18 08/15/17 10:00 Blood Pressure 120/76 08/15/17 10:00 O2 Sat by Pulse Oximetry (%) 93 L 08/15/17 09:00 Vital Signs Period Temp Pulse Resp BP Sys/Nolan Pulse Ox Last 24 Hr 97.9 F-99.2 F 88-108 18-20 120-134/76-90 93-95 Constitutional: Yes: No Distress, Calm, Poor Hygeine, Thin Eyes: Yes: Conjunctiva Clear, EOM Intact HENT: Yes: Atraumatic, Normocephalic Neck: Yes: Supple, Trachea Midline Cardiovascular: Yes: Regular Rate and Rhythm, S1, S2 Respiratory: Yes: Regular, CTA Bilaterally Gastrointestinal: Yes: Normal Bowel Sounds, Soft. No: Tenderness ...Rectal Exam: Yes: Deferred Genitourinary: No: CVA Tenderness - Left, CVA Tenderness - Right Musculoskeletal: Yes: Joint Stiffness (Left elbow, -15 full neutral extension) Extremities: No: Cool, Cyanosis Edema: No Peripheral Pulses WNL: Yes Wound/Incision: Yes: Unapproximated Neurological: Yes: Alert, Oriented Psychiatric: Yes: Alert, Oriented Labs: CBC, BMP 08/11/17 07:00 08/11/17 07:00 INR, PTT INR 1.02 (0.82-1.09) 07/26/17 05:55 Fibrinogen 788.0 mg/dL (238-498) H 07/27/17 06:15 Problem List - Problems (1) MRSA (methicillin resistant Staphylococcus aureus) septicemia Assessment/Plan: 21 yo LHD male with Hepatitis C, DM type 1 in DKA with aggressive left forearm cellulitis, thrombophlebitis, and draining abscess at the site of injecting IV drugs. MRSA septicemia, secondary to injecting heroin with contaminated needles. POD#18 s/p I&D and debridement of infected thrombophlebitis left forearm. The edema in the left arm is resolved. WBC normal range, blood cultures are clearing. Physical therapy follow-up for ROM left elbow extension Dressing Left forearm/ antecubital fossa daily Wound Measurement: two linear 5cmX2.5cm, yellow stained fibrinous exudate soft tissue, new granulation Dressing instructions: oil emulsion dressing, 4X4 gauze sponges, Aaron wrap Can follow up after discharge Code(s): A41.02 - SEPSIS DUE TO METHICILLIN RESISTANT STAPHYLOCOCCUS AUREUS (2) Thrombophlebitis arm Code(s): I80.8 - PHLEBITIS AND THROMBOPHLEBITIS OF OTHER SITES (3) Abscess of forearm Code(s): L02.419 - CUTANEOUS ABSCESS OF LIMB, UNSPECIFIED (4) Opioid dependence with withdrawal Code(s): F11.23 - OPIOID DEPENDENCE WITH WITHDRAWAL (5) Diabetes Code(s): E11.9 - TYPE 2 DIABETES MELLITUS WITHOUT COMPLICATIONS Qualifiers: Diabetes mellitus type: type 1 Diabetes mellitus complication status: with ketoacidosis Diabetes mellitus complication detail: without coma Qualified Code(s): E10.10 - Type 1 diabetes mellitus with ketoacidosis without coma
--- NOTE | 2017-08-15 13:47 | PN ---
Progress Note (short form) - Note Progress Note: high sugars despite improved symptoms Laboratory Results - last 24 hr 08/14/17 08/14/17 08/15/17 17:05 22:41 06:16 POC Glucometer 300 259 301 08/15/17 11:33 POC Glucometer 271 Laboratory Tests 08/12/17 08/12/17 08/12/17 12:26 16:45 21:15 POC Glucometer 107 98 247 08/15/17 08/15/17 06:16 11:33 POC Glucometer 301 271 Current Active Problems Abscess (Acute) Abscess of forearm (Acute) Abscess of left forearm (Acute) DKA, type 1 (Acute) Diabetic ketoacidosis (Acute) Encounter for monitoring Suboxone maintenance therapy (Acute) Esophagitis (Acute) Gram-positive bacteremia (Acute) Hypoalbuminemia (Acute) Hypokalemia (Acute) Infective endocarditis (Acute) MRSA (methicillin resistant Staphylococcus aureus) septicemia (Acute) Patent foramen ovale (Acute) Pleural effusion (Acute) Sepsis (Acute) Sinus tachycardia (Acute) Substance abuse (Acute) Thrombocytosis (Acute) Thrombophlebitis arm (Acute) Current Medications Generic Name Dose Route Start Last Admin Trade Name Freq PRN Reason Stop Dose Admin Acetaminophen 650 mg 08/10/17 20:51 Tylenol - PO Q6H PRN FEVER Buprenorphine/Naloxone 1 each 08/11/17 10:00 08/15/17 10:35 Suboxone 8mg/2mg Sl Film - SL 1 each DAILY [facility] Administration Clonidine 0.1 mg 08/10/17 22:00 08/15/17 10:34 Catapres - PO 0.1 mg BID [facility] Administration Cyclobenzaprine HCl 10 mg 08/10/17 22:00 08/15/17 06:18 Flexeril - PO 10 mg TID [facility] Administration Enoxaparin Sodium 40 mg 08/11/17 10:00 08/15/17 10:35 Lovenox - SQ 40 mg DAILY [facility] Administration Gabapentin 300 mg 08/10/17 22:00 08/15/17 06:18 Neurontin - PO 300 mg TID [facility] Administration TELAVANCIN HCL 700 mg/ 292 mls @ 292 mls/hr 08/11/17 10:00 08/15/17 10:30 Dextrose IVPB 292 mls/hr DAILY [facility] Administration Insulin Aspart 1 vial 08/10/17 22:00 08/15/17 11:57 Novolog Vial Sliding Scale - SQ 6 units ACHS [facility] Administration Protocol Insulin Detemir 27 units 08/14/17 19:47 08/15/17 06:18 Levemir Vial SQ 27 units AM [facility] Administration Insulin Detemir 15 units 08/14/17 19:47 08/14/17 22:44 Levemir Vial SQ 15 units HS [facility] Administration Nicotine 21 mg 08/11/17 10:00 08/15/17 10:34 Nicoderm Patch - TD 21 mg DAILY [facility] Administration Nicotine Polacrilex 2 mg 08/10/17 20:51 Nicorette Gum - BUC Q2H PRN NICOTINE REPLACEMENT RX Pantoprazole Sodium 40 mg 08/15/17 10:00 08/15/17 10:34 Protonix - PO 40 mg DAILY [facility] Administration Multivit/Folic Acid/Iron 1 tab 08/11/17 10:00 08/15/17 10:35 Vitamins (Sjr) - PO 1 tab DAILY [facility] Administration Sucralfate 1 gm 08/10/17 22:00 08/15/17 10:34 Carafate Oral Suspension - PO 1 gm QID [facility] Administration Thiamine HCl 100 mg 08/10/17 22:00 08/14/17 22:43 Vitamin B1 - PO 100 mg HS [facility] Administration Zolpidem Tartrate 10 mg 08/10/17 10:39 08/14/17 22:43 Ambien - PO 10 mg HS PRN Administration INSOMNIA plan: bgm qid novolog insulin levemir 30 units am levemir 15 unt hs Problem List - Problems (1) Abscess Code(s): L02.91 - CUTANEOUS ABSCESS, UNSPECIFIED (2) Abscess of forearm Code(s): L02.419 - CUTANEOUS ABSCESS OF LIMB, UNSPECIFIED (3) DKA, type 1 Code(s): E10.10 - TYPE 1 DIABETES MELLITUS WITH KETOACIDOSIS WITHOUT COMA Qualifiers: Diabetes mellitus complication detail: without coma Qualified Code(s): E10.10 - Type 1 diabetes mellitus with ketoacidosis without coma (4) Diabetic ketoacidosis Code(s): E13.10 - OTH DIABETES MELLITUS WITH KETOACIDOSIS WITHOUT COMA (5) Gram-positive bacteremia Code(s): R78.81 - BACTEREMIA (6) Hypokalemia Code(s): E87.6 - HYPOKALEMIA (7) Sepsis Code(s): A41.9 - SEPSIS, UNSPECIFIED ORGANISM (8) Thrombophlebitis arm Code(s): I80.8 - PHLEBITIS AND THROMBOPHLEBITIS OF OTHER SITES
--- NOTE | 2017-08-15 15:10 | PN ---
Progress Note (short form) - Note Progress Note: PULMONARY AWAKE/ALERT VSS/AFEBRILE PALE LEFT CHEST TUBE DRAINAGE IN PLACE S1S2 BS+ NO EDEMA LABS/MEDS/NOTES/IMAGES/MICRO REVIEWED MRSA Bacteremia/LUE Abscess s/p debridement Lung Nodules likely Septic Emboli Diabetic Ketoacidosis resolved Septic Shock resolving Thrombocytopenia improved Acute Kidney Injury improved Lactic Acidosis resolved +Troponins likely Demand Ischemia IVDU/Polysubstance Abuse Anemia - continue antibiotics - thoracic surgery f/u /removal chest tube - monitor urine output, creatinine - monitor H/H - protonix - glucose control - DVT prophylaxis Russ ANDREWS MD
[2017-08-15] MEDS: ACETAMINOPHEN 325 MG TABLET (FP) PO PRN (17:08)
[2017-08-15] MEDS: ZOLPIDEM TARTRATE 5 MG TABLET PO PRN (21:58)
[2017-08-15] MEDS: THIAMINE HCL 100 MG TABLET (FP) PO SCH (21:58)
[2017-08-15] MEDS: INSULIN DETEMIR 100 UNITS/ML MDV SQ SCH (21:59)
[2017-08-16] MEDS: INSULIN DETEMIR 100 UNITS/ML MDV SQ SCH ×2 (06:11→22:17)
[2017-08-16] MEDS: CYCLOBENZAPRINE HCL 10 MG TABLET (FP) PO SCH ×3 (06:11→22:17)
[2017-08-16] MEDS: GABAPENTIN 300 MG CAPSULE (FP) PO SCH ×3 (06:11→22:17)
[2017-08-16] MEDS: INSULIN SLIDING SCALE (NOVOLOG) 1 VIAL SQ SCH ×4 (06:11→23:43)
[2017-08-16 07:50] LABS: HEMATOCRIT 24.5 % (35.4-49); HEMOGLOBIN 8.4 GM/dL (11.7-16.9); MCH 31.3 pg (25.7-33.7); MCHC 34.3 g/dl (32.0-35.9); MEAN CELL VOLUME 91.1 fl (80-96); MEAN PLT VOLUME 8.1 fl (7.5-11.1); PLATELET COUNT 389 K/MM3 (134-434); RBC 2.69 M/mm3 (4.00-5.60); RDW 16.5 % (11.9-15.9); WHITE BLOOD COUNT 7.8 K/mm3 (4.0-10.0)
[2017-08-16 08:19] LABS: ANION GAP 11 (8-16); BLOOD UREA NITROGEN 29 mg/dL (7-18); CALCIUM 8.4 mg/dL (8.5-10.1); CHLORIDE 98 mmol/L (98-107); CO2 27 mmol/L (21-32); SODIUM 136 mmol/L (136-145)
[2017-08-16 08:23] LABS: CREATININE 0.9 mg/dL (0.7-1.3)
[2017-08-16 08:38] LABS: GLUCOSE,RANDOM 328 mg/dL (74-106)
[2017-08-16] MEDS ORDERED: PT OWN MED DRAWER 7, Y5N ONE (10:41)
[2017-08-16] MEDS: SUCRALFATE 1 GM/10 ML UNIT DOSE CUPS PO SCH ×4 (10:48→22:17)
[2017-08-16] MEDS: ENOXAPARIN NA (PORCINE) 40 MG/0.4 ML DISP.SYRIN SQ SCH (10:49)
[2017-08-16] MEDS: PRENATAL VITAMINS W/ FOLIC ACID TABLET (FP) PO SCH (10:49)
[2017-08-16] MEDS: cloNIDine HCL 0.1 MG TABLET PO SCH ×2 (10:49→22:17)
[2017-08-16] MEDS: NICOTINE 21 MG/24 HOURS TOPICAL PATCH TD SCH (10:49)
[2017-08-16] MEDS: PANTOPRAZOLE 40 MG TABLET (FP) PO SCH (10:49)
[2017-08-16] MEDS: DEXTROSE 5% IVPB SCH ×2 (10:50→12:56)
[2017-08-16] MEDS: BUPRENORPHINE/NALOXONE 8 MG/2 MG FILM PACKET SL SCH (10:50)
[2017-08-16] MEDS: TELAVANCIN HCL IVPB SCH ×2 (10:50→12:56)
[2017-08-16] MEDS: WATER IVPB SCH ×2 (10:50→12:56)
[2017-08-16] MEDS ORDERED: INSULIN (NOVOLOG) ASPART 100 UNITS/ML 10ML VIAL ONE ×3 (11:43→18:51)
--- NOTE | 2017-08-16 12:08 | PN ---
Progress Note (short form) - Note Progress Note: Thoracic Surgery Doing well. Left drainage sterile and minimal. No resp sx. OK to remove chest tube at this point. Problem List - Problems (1) Abscess of forearm Code(s): L02.419 - CUTANEOUS ABSCESS OF LIMB, UNSPECIFIED (2) Pleural effusion Code(s): J90 - PLEURAL EFFUSION, NOT ELSEWHERE CLASSIFIED
--- NOTE | 2017-08-16 12:13 | PN ---
Progress Note, Physician Chief Complaint: ID Patient seen with thoracic surgery Televancin alone now - Current Medication List Current Medications: Active Medications Acetaminophen (Tylenol -) 650 mg PO Q6H PRN PRN Reason: FEVER Last Admin: 08/15/17 17:08 Dose: 650 mg Buprenorphine/Naloxone (Suboxone 8mg/2mg Sl Film -) 1 each SL DAILY [facility] Last Admin: 08/16/17 10:50 Dose: 1 each Clonidine (Catapres -) 0.1 mg PO BID [facility] Last Admin: 08/16/17 10:49 Dose: 0.1 mg Cyclobenzaprine HCl (Flexeril -) 10 mg PO TID [facility] Last Admin: 08/16/17 06:11 Dose: 10 mg Enoxaparin Sodium (Lovenox -) 40 mg SQ DAILY [facility] Last Admin: 08/16/17 10:49 Dose: 40 mg Gabapentin (Neurontin -) 300 mg PO TID [facility] Last Admin: 08/16/17 06:11 Dose: 300 mg TELAVANCIN HCL 700 mg/ (Dextrose) 292 mls @ 292 mls/hr IVPB DAILY [facility] Last Admin: 08/15/17 10:30 Dose: 292 mls/hr Insulin Aspart (Novolog Vial Sliding Scale -) 1 vial SQ ACHS [facility] PRN Reason: Protocol Last Admin: 08/16/17 11:52 Dose: 2 units Insulin Detemir (Levemir Vial) 15 units SQ HS [facility] Last Admin: 08/15/17 21:59 Dose: 15 units Insulin Detemir (Levemir Vial) 30 units SQ AM [facility] Last Admin: 08/16/17 06:11 Dose: 30 units Nicotine (Nicoderm Patch -) 21 mg TD DAILY [facility] Last Admin: 08/16/17 10:49 Dose: 21 mg Nicotine Polacrilex (Nicorette Gum -) 2 mg BUC Q2H PRN PRN Reason: NICOTINE REPLACEMENT RX Pantoprazole Sodium (Protonix -) 40 mg PO DAILY [facility] Last Admin: 08/16/17 10:49 Dose: 40 mg Multivit/Folic Acid/Iron ( Vitamins (Sjr) -) 1 tab PO DAILY [facility] Last Admin: 08/16/17 10:49 Dose: 1 tab Sucralfate (Carafate Oral Suspension -) 1 gm PO QID [facility] Last Admin: 08/16/17 10:48 Dose: 1 gm Thiamine HCl (Vitamin B1 -) 100 mg PO HS [facility] Last Admin: 08/15/17 21:58 Dose: 100 mg Zolpidem Tartrate (Ambien -) 10 mg PO HS PRN PRN Reason: INSOMNIA Last Admin: 08/15/17 21:58 Dose: 10 mg - Objective Vital Signs: Vital Signs Temperature 97.5 F L 08/16/17 10:43 Pulse Rate 90 08/16/17 10:43 Respiratory Rate 20 08/16/17 10:43 Blood Pressure 134/87 08/16/17 10:43 O2 Sat by Pulse Oximetry (%) 95 08/15/17 22:00 Constitutional: Yes: Well Nourished Cardiovascular: Yes: S1, S2. No: Murmur Respiratory: Yes: Other (Left chest tube) Labs: CBC, BMP 08/16/17 07:00 08/16/17 07:00 INR, PTT INR 1.02 (0.82-1.09) 07/26/17 05:55 Fibrinogen 788.0 mg/dL (238-498) H 07/27/17 06:15 Assessment/Plan Laboratory Tests 08/16/17 08/16/17 07:00 07:00 WBC 7.8 Hgb 8.4 L Hct 24.5 L Plt Count 389 D BUN 29 H D Creatinine 0.9 D Assessment Day 11 0f planned 28 days Telavancin Plan Chest tube removal Continue antibiotic Dsicharge planning Does not need daily labs Bob SANDERSON
--- NOTE | 2017-08-16 12:53 | PN ---
Progress Note, Physician History of Present Illness: PULMONARY ALERT,NAD,-SOB,MIN CHEST TUBE DRAINAGE - Current Medication List Current Medications: Active Medications Acetaminophen (Tylenol -) 650 mg PO Q6H PRN PRN Reason: FEVER Last Admin: 08/15/17 17:08 Dose: 650 mg Buprenorphine/Naloxone (Suboxone 8mg/2mg Sl Film -) 1 each SL DAILY [facility] Last Admin: 08/16/17 10:50 Dose: 1 each Clonidine (Catapres -) 0.1 mg PO BID [facility] Last Admin: 08/16/17 10:49 Dose: 0.1 mg Cyclobenzaprine HCl (Flexeril -) 10 mg PO TID [facility] Last Admin: 08/16/17 06:11 Dose: 10 mg Enoxaparin Sodium (Lovenox -) 40 mg SQ DAILY [facility] Last Admin: 08/16/17 10:49 Dose: 40 mg Gabapentin (Neurontin -) 300 mg PO TID [facility] Last Admin: 08/16/17 06:11 Dose: 300 mg TELAVANCIN HCL 700 mg/ (Dextrose) 292 mls @ 292 mls/hr IVPB DAILY [facility] Last Admin: 08/15/17 10:30 Dose: 292 mls/hr Insulin Aspart (Novolog Vial Sliding Scale -) 1 vial SQ ACHS [facility] PRN Reason: Protocol Last Admin: 08/16/17 11:52 Dose: 2 units Insulin Detemir (Levemir Vial) 15 units SQ HS [facility] Last Admin: 08/15/17 21:59 Dose: 15 units Insulin Detemir (Levemir Vial) 30 units SQ AM [facility] Last Admin: 08/16/17 06:11 Dose: 30 units Nicotine (Nicoderm Patch -) 21 mg TD DAILY [facility] Last Admin: 08/16/17 10:49 Dose: 21 mg Nicotine Polacrilex (Nicorette Gum -) 2 mg BUC Q2H PRN PRN Reason: NICOTINE REPLACEMENT RX Pantoprazole Sodium (Protonix -) 40 mg PO DAILY [facility] Last Admin: 08/16/17 10:49 Dose: 40 mg Multivit/Folic Acid/Iron ( Vitamins (Sjr) -) 1 tab PO DAILY [facility] Last Admin: 08/16/17 10:49 Dose: 1 tab Sucralfate (Carafate Oral Suspension -) 1 gm PO QID [facility] Last Admin: 08/16/17 10:48 Dose: 1 gm Thiamine HCl (Vitamin B1 -) 100 mg PO HS [facility] Last Admin: 08/15/17 21:58 Dose: 100 mg Zolpidem Tartrate (Ambien -) 10 mg PO HS PRN PRN Reason: INSOMNIA Last Admin: 08/15/17 21:58 Dose: 10 mg - Objective Vital Signs: Vital Signs Temperature 97.5 F L 08/16/17 10:43 Pulse Rate 90 08/16/17 10:43 Respiratory Rate 20 08/16/17 10:43 Blood Pressure 134/87 08/16/17 10:43 O2 Sat by Pulse Oximetry (%) 95 08/15/17 22:00 Constitutional: Yes: Calm, Thin Eyes: Yes: WNL HENT: Yes: WNL Neck: Yes: WNL Cardiovascular: Yes: Regular Rate and Rhythm, S1, S2 Respiratory: Yes: CTA Bilaterally Gastrointestinal: Yes: Normal Bowel Sounds, Soft Extremities: Yes: WNL Edema: No Labs: CBC, BMP 08/16/17 07:00 08/16/17 07:00 INR, PTT INR 1.02 (0.82-1.09) 07/26/17 05:55 Fibrinogen 788.0 mg/dL (238-498) H 07/27/17 06:15 Problem List - Problems (1) Abscess Code(s): L02.91 - CUTANEOUS ABSCESS, UNSPECIFIED (2) Gram-positive bacteremia Code(s): R78.81 - BACTEREMIA (3) Infective endocarditis Code(s): I33.0 - ACUTE AND SUBACUTE INFECTIVE ENDOCARDITIS Qualifiers: Infective endocarditis organism: bacterial (4) MRSA (methicillin resistant Staphylococcus aureus) septicemia Code(s): A41.02 - SEPSIS DUE TO METHICILLIN RESISTANT STAPHYLOCOCCUS AUREUS (5) Thrombophlebitis arm Code(s): I80.8 - PHLEBITIS AND THROMBOPHLEBITIS OF OTHER SITES (6) Nicotine dependence Code(s): F17.200 - NICOTINE DEPENDENCE, UNSPECIFIED, UNCOMPLICATED Qualifiers: Nicotine product type: cigarettes Substance use status: uncomplicated Qualified Code(s): F17.210 - Nicotine dependence, cigarettes, uncomplicated Assessment/Plan A/P Persistent MRSA Bacteremia/LUE Abscess s/p debridement Lung Nodules likely Septic Emboli Diabetic Ketoacidosis resolved Septic Shock resolving Thrombocytopenia improved Acute Kidney Injury improved Lactic Acidosis resolved +Troponins likely Demand Ischemia IVDU/Polysubstance Abuse Anemia Pleural effusion s/p chest tube drainage - antibiotics - monitor H/H - protonix - glucose control - DVT prophylaxis - d/c chest tube as thoracic surgery DR BRIONES
--- NOTE | 2017-08-16 17:21 | PN ---
Progress Note, Physician Chief Complaint: IVDA with left arm cellulitis and infected thrombophlebitis History of Present Illness: 21yo LHD male PMH type 1 DM, current IV heroin user, Hepatitis C presented with altered mental status and generalized weakness. No more complaints of pain in the left arm. routine wound care daily. - Current Medication List Current Medications: Active Medications Acetaminophen (Tylenol -) 650 mg PO Q6H PRN PRN Reason: FEVER Last Admin: 08/15/17 17:08 Dose: 650 mg Buprenorphine/Naloxone (Suboxone 8mg/2mg Sl Film -) 1 each SL DAILY [facility] Last Admin: 08/16/17 10:50 Dose: 1 each Clonidine (Catapres -) 0.1 mg PO BID [facility] Last Admin: 08/16/17 10:49 Dose: 0.1 mg Cyclobenzaprine HCl (Flexeril -) 10 mg PO TID [facility] Last Admin: 08/16/17 13:56 Dose: 10 mg Enoxaparin Sodium (Lovenox -) 40 mg SQ DAILY [facility] Last Admin: 08/16/17 10:49 Dose: 40 mg Gabapentin (Neurontin -) 300 mg PO TID [facility] Last Admin: 08/16/17 13:56 Dose: 300 mg TELAVANCIN HCL 700 mg/ (Dextrose) 292 mls @ 292 mls/hr IVPB DAILY [facility] Last Admin: 08/16/17 12:56 Dose: 292 mls/hr Insulin Aspart (Novolog Vial Sliding Scale -) 1 vial SQ ACHS [facility] PRN Reason: Protocol Last Admin: 08/16/17 11:52 Dose: 2 units Insulin Detemir (Levemir Vial) 15 units SQ HS [facility] Last Admin: 08/15/17 21:59 Dose: 15 units Insulin Detemir (Levemir Vial) 30 units SQ AM [facility] Last Admin: 08/16/17 06:11 Dose: 30 units Nicotine (Nicoderm Patch -) 21 mg TD DAILY [facility] Last Admin: 08/16/17 10:49 Dose: 21 mg Nicotine Polacrilex (Nicorette Gum -) 2 mg BUC Q2H PRN PRN Reason: NICOTINE REPLACEMENT RX Pantoprazole Sodium (Protonix -) 40 mg PO DAILY [facility] Last Admin: 08/16/17 10:49 Dose: 40 mg Multivit/Folic Acid/Iron ( Vitamins (Sjr) -) 1 tab PO DAILY [facility] Last Admin: 08/16/17 10:49 Dose: 1 tab Sucralfate (Carafate Oral Suspension -) 1 gm PO QID [facility] Last Admin: 08/16/17 13:56 Dose: 1 gm Thiamine HCl (Vitamin B1 -) 100 mg PO HS [facility] Last Admin: 08/15/17 21:58 Dose: 100 mg Zolpidem Tartrate (Ambien -) 10 mg PO HS PRN PRN Reason: INSOMNIA Last Admin: 08/15/17 21:58 Dose: 10 mg - Objective Vital Signs: Vital Signs Temperature 98.8 F 08/16/17 15:06 Pulse Rate 102 H 08/16/17 15:06 Respiratory Rate 20 08/16/17 15:06 Blood Pressure 134/83 08/16/17 15:06 O2 Sat by Pulse Oximetry (%) 91 L 08/16/17 11:00 Vital Signs Period Temp Pulse Resp BP Sys/Nolan Pulse Ox Last 24 Hr 97.5 F-98.8 F 88-102 18-20 125-134/76-87 91-95 Constitutional: Yes: No Distress, Calm, Poor Hygeine, Thin Eyes: Yes: Conjunctiva Clear, EOM Intact HENT: Yes: Atraumatic, Normocephalic Neck: Yes: Supple, Trachea Midline Cardiovascular: Yes: Regular Rate and Rhythm, S1, S2 Respiratory: Yes: Regular, CTA Bilaterally. No: Cough, On Nasal O2 Gastrointestinal: Yes: Normal Bowel Sounds, Soft. No: Tenderness ...Rectal Exam: Yes: Deferred Genitourinary: No: CVA Tenderness - Left, CVA Tenderness - Right Musculoskeletal: Yes: Joint Stiffness (left elbow) Extremities: No: Cool, Cyanosis Edema: No Peripheral Pulses WNL: Yes Integumentary: No: Jaundice, Rash Wound/Incision: Yes: Unapproximated Neurological: Yes: Alert, Oriented Psychiatric: Yes: Alert, Oriented Labs: CBC, BMP 08/16/17 07:00 08/16/17 07:00 INR, PTT INR 1.02 (0.82-1.09) 07/26/17 05:55 Fibrinogen 788.0 mg/dL (238-498) H 07/27/17 06:15 Problem List - Problems (1) MRSA (methicillin resistant Staphylococcus aureus) septicemia Assessment/Plan: 21 yo LHD male with Hepatitis C, DM type 1 in DKA with aggressive left forearm cellulitis, thrombophlebitis, and draining abscess at the site of injecting IV drugs. MRSA septicemia, secondary to injecting heroin with contaminated needles. POD#19 s/p I&D and debridement of infected thrombophlebitis left forearm. The edema in the left arm is largely resolved. WBC normal range, blood cultures are clearing. Physical therapy follow-up for ROM left elbow extension Dressing Left forearm/ antecubital fossa daily Wound Measurement: two linear [id number], yellow stained fibrinous exudate soft tissue, new granulation Dressing instructions: oil emulsion dressing, 4X4 gauze sponges, Aaron wrap Can follow up after discharge Code(s): A41.02 - SEPSIS DUE TO METHICILLIN RESISTANT STAPHYLOCOCCUS AUREUS (2) Thrombophlebitis arm Code(s): I80.8 - PHLEBITIS AND THROMBOPHLEBITIS OF OTHER SITES (3) Abscess of forearm Code(s): L02.419 - CUTANEOUS ABSCESS OF LIMB, UNSPECIFIED (4) Opioid dependence with withdrawal Code(s): F11.23 - OPIOID DEPENDENCE WITH WITHDRAWAL (5) Diabetes Code(s): E11.9 - TYPE 2 DIABETES MELLITUS WITHOUT COMPLICATIONS Qualifiers: Diabetes mellitus type: type 1 Diabetes mellitus complication status: with ketoacidosis Diabetes mellitus complication detail: without coma Qualified Code(s): E10.10 - Type 1 diabetes mellitus with ketoacidosis without coma
[2017-08-16] MEDS: THIAMINE HCL 100 MG TABLET (FP) PO SCH (22:18)
[2017-08-16] MEDS: ZOLPIDEM TARTRATE 5 MG TABLET PO PRN (22:23)
--- NOTE | 2017-08-16 22:31 | PN ---
Progress Note, Physician History of Present Illness: No new changes - Current Medication List Current Medications: Active Medications Acetaminophen (Tylenol -) 650 mg PO Q6H PRN PRN Reason: FEVER Last Admin: 08/15/17 17:08 Dose: 650 mg Buprenorphine/Naloxone (Suboxone 8mg/2mg Sl Film -) 1 each SL DAILY [facility] Last Admin: 08/16/17 10:50 Dose: 1 each Clonidine (Catapres -) 0.1 mg PO BID [facility] Last Admin: 08/16/17 22:17 Dose: 0.1 mg Cyclobenzaprine HCl (Flexeril -) 10 mg PO TID [facility] Last Admin: 08/16/17 22:17 Dose: 10 mg Enoxaparin Sodium (Lovenox -) 40 mg SQ DAILY [facility] Last Admin: 08/16/17 10:49 Dose: 40 mg Gabapentin (Neurontin -) 300 mg PO TID [facility] Last Admin: 08/16/17 22:17 Dose: 300 mg TELAVANCIN HCL 700 mg/ (Dextrose) 292 mls @ 292 mls/hr IVPB DAILY [facility] Last Admin: 08/16/17 12:56 Dose: 292 mls/hr Insulin Aspart (Novolog Vial Sliding Scale -) 1 vial SQ ACHS [facility] PRN Reason: Protocol Last Admin: 08/16/17 17:26 Dose: 2 units Insulin Detemir (Levemir Vial) 15 units SQ HS [facility] Last Admin: 08/16/17 22:17 Dose: 15 units Insulin Detemir (Levemir Vial) 30 units SQ AM [facility] Last Admin: 08/16/17 06:11 Dose: 30 units Nicotine (Nicoderm Patch -) 21 mg TD DAILY [facility] Last Admin: 08/16/17 10:49 Dose: 21 mg Nicotine Polacrilex (Nicorette Gum -) 2 mg BUC Q2H PRN PRN Reason: NICOTINE REPLACEMENT RX Pantoprazole Sodium (Protonix -) 40 mg PO DAILY [facility] Last Admin: 08/16/17 10:49 Dose: 40 mg Multivit/Folic Acid/Iron ( Vitamins (Sjr) -) 1 tab PO DAILY [facility] Last Admin: 08/16/17 10:49 Dose: 1 tab Sucralfate (Carafate Oral Suspension -) 1 gm PO QID [facility] Last Admin: 08/16/17 22:17 Dose: 1 gm Thiamine HCl (Vitamin B1 -) 100 mg PO HS [facility] Last Admin: 08/16/17 22:18 Dose: 100 mg Zolpidem Tartrate (Ambien -) 10 mg PO HS PRN PRN Reason: INSOMNIA Last Admin: 08/16/17 22:23 Dose: 10 mg - Objective Vital Signs: Vital Signs Temperature 98.6 F 08/16/17 19:20 Pulse Rate 100 H 08/16/17 19:20 Respiratory Rate 20 08/16/17 19:20 Blood Pressure 130/70 08/16/17 19:20 O2 Sat by Pulse Oximetry (%) 91 L 08/16/17 11:00 Cardiovascular: Yes: WNL, Regular Rate and Rhythm Respiratory: Yes: WNL, Regular, CTA Bilaterally Gastrointestinal: Yes: WNL, Normal Bowel Sounds, Soft Labs: CBC, BMP 08/16/17 07:00 08/16/17 07:00 INR, PTT INR 1.02 (0.82-1.09) 07/26/17 05:55 Fibrinogen 788.0 mg/dL (238-498) H 07/27/17 06:15 Problem List - Problems (1) Pleural effusion Assessment/Plan: S/P chest tube placement Decreased drainage Probable chest tube removal in am Check CXR in am Code(s): J90 - PLEURAL EFFUSION, NOT ELSEWHERE CLASSIFIED (2) Sepsis Assessment/Plan: S/P I&D/debridement/fasciotomy Lt forearm MRSA Bacteremia/supprative thrombophlebitis Repeat BC remain negative IV telavancin/ceftaroline as per ID PEG was done and did not show any vegetations Code(s): A41.9 - SEPSIS, UNSPECIFIED ORGANISM (3) Diabetic ketoacidosis Assessment/Plan: Cont levemir Cont sliding scale w/ coverge Code(s): E13.10 - OTH DIABETES MELLITUS WITH KETOACIDOSIS WITHOUT COMA (4) Thrombocytosis Code(s): D47.3 - ESSENTIAL (HEMORRHAGIC) THROMBOCYTHEMIA (5) Anemia Code(s): D64.9 - ANEMIA, UNSPECIFIED (6) Opioid dependence with withdrawal Code(s): F11.23 - OPIOID DEPENDENCE WITH WITHDRAWAL
[2017-08-17] MEDS: CYCLOBENZAPRINE HCL 10 MG TABLET (FP) PO SCH ×3 (05:40→21:46)
[2017-08-17] MEDS: GABAPENTIN 300 MG CAPSULE (FP) PO SCH ×3 (05:40→21:47)
[2017-08-17] MEDS: INSULIN SLIDING SCALE (NOVOLOG) 1 VIAL SQ SCH ×4 (06:03→23:05)
[2017-08-17] MEDS: INSULIN DETEMIR 100 UNITS/ML MDV SQ SCH ×2 (06:03→23:03)
--- NOTE | 2017-08-17 08:06 | PROC ---
Procedure Note Procedure: Thoracic Surgery Left pigtail off suction > 24 hours. Minimal drainage. Asked by Dr. Ramirez to remove tube. Left pigtail removed with distal tip fully intact. STAT cxr ordered (per protocol). Xeroform, 2x2, occlusive dressing applied. Patient tolerated procedure well.
[2017-08-17] MEDS ORDERED: PT OWN MED DRAWER 7, Y5N ONE (10:02)
[2017-08-17] MEDS: PANTOPRAZOLE 40 MG TABLET (FP) PO SCH (10:05)
[2017-08-17] MEDS: SUCRALFATE 1 GM/10 ML UNIT DOSE CUPS PO SCH ×4 (10:05→21:46)
[2017-08-17] MEDS: ENOXAPARIN NA (PORCINE) 40 MG/0.4 ML DISP.SYRIN SQ SCH (10:05)
[2017-08-17] MEDS: cloNIDine HCL 0.1 MG TABLET PO SCH ×2 (10:05→21:46)
[2017-08-17] MEDS: NICOTINE 21 MG/24 HOURS TOPICAL PATCH TD SCH (10:07)
[2017-08-17] MEDS: BUPRENORPHINE/NALOXONE 8 MG/2 MG FILM PACKET SL SCH (10:07)
--- NOTE | 2017-08-17 10:38 | PN ---
Physical Exam: SUBJECTIVE: Patient seen and examined. CTube removed this AM. Pt tolerated. Denies sob, chest pain. OBJECTIVE: Vital Signs Period Temp Pulse Resp BP Sys/Nolan Pulse Ox Last 24 Hr 97.1 F-98.9 F 89-102 20-20 123-140/70-90 91-95 PE Neuro: alert, awake, cn 2-12intact Pulm: diminshed bases with crackles, L>R, L sided dressing cdi CV: s1 s2 rrr Abd: s nt nd + bs Ext: left arm dressing intact, no le edema Laboratory Results - last 24 hr 08/16/17 08/17/17 08/17/17 23:00 03:55 05:56 POC Glucometer 223 215 Random Glucose 382 H* Active Medications Generic Name Dose Route Start Last Admin Trade Name Freq PRN Reason Stop Dose Admin Acetaminophen 650 mg 08/10/17 20:51 08/15/17 17:08 Tylenol - PO 650 mg Q6H PRN Administration FEVER Buprenorphine/Naloxone 1 each 08/11/17 10:00 08/17/17 10:07 Suboxone 8mg/2mg Sl Film - SL 1 each DAILY [facility] Administration Clonidine 0.1 mg 08/10/17 22:00 08/17/17 10:05 Catapres - PO 0.1 mg BID [facility] Administration Cyclobenzaprine HCl 10 mg 08/10/17 22:00 08/17/17 05:40 Flexeril - PO 10 mg TID [facility] Administration Enoxaparin Sodium 40 mg 08/11/17 10:00 08/17/17 10:05 Lovenox - SQ 40 mg DAILY [facility] Administration Gabapentin 300 mg 08/10/17 22:00 08/17/17 05:40 Neurontin - PO 300 mg TID [facility] Administration TELAVANCIN HCL 700 mg/ 292 mls @ 292 mls/hr 08/11/17 10:00 08/16/17 12:56 Dextrose IVPB 292 mls/hr DAILY [facility] Administration Insulin Aspart 1 vial 08/10/17 22:00 08/17/17 06:03 Novolog Vial Sliding Scale - SQ 4 units ACHS [facility] Administration Protocol Insulin Detemir 15 units 08/14/17 19:47 08/16/17 22:17 Levemir Vial SQ 15 units HS [facility] Administration Insulin Detemir 30 units 08/16/17 07:00 08/17/17 06:03 Levemir Vial SQ 30 units AM [facility] Administration Nicotine 21 mg 08/11/17 10:00 08/17/17 10:07 Nicoderm Patch - TD 21 mg DAILY [facility] Administration Nicotine Polacrilex 2 mg 08/10/17 20:51 Nicorette Gum - BUC Q2H PRN NICOTINE REPLACEMENT RX Pantoprazole Sodium 40 mg 08/15/17 10:00 08/17/17 10:05 Protonix - PO 40 mg DAILY [facility] Administration Multivit/Folic Acid/Iron 1 tab 08/11/17 10:00 08/16/17 10:49 Vitamins (Sjr) - PO 1 tab DAILY [facility] Administration Sucralfate 1 gm 08/10/17 22:00 08/17/17 10:05 Carafate Oral Suspension - PO 1 gm QID [facility] Administration Thiamine HCl 100 mg 08/10/17 22:00 08/16/17 22:18 Vitamin B1 - PO 100 mg HS [facility] Administration Zolpidem Tartrate 10 mg 08/10/17 10:39 08/16/17 22:23 Ambien - PO 10 mg HS PRN Administration INSOMNIA Abx - Ceftaroline stopped 08/14 Imaging: PEG neg for vegetations Assessment: 21 year old male with PMHx type 1 DM, current IV heroin user on methadone (including methamphetamines, opioid and heroin abuse, on methadone), Hepatitis C admitted with AMS, generalized weakness admitted with sepsis and DKA and LUE cellulitis. Plan: 1. Septic shock d/t MRSA bacteremia d/t LUE abscess s/p debridement - Sepsis resolving - Continue Televancin x4 weeks: (day ) started 08/05 - Daily dressing changes: oil emulsion dressing, 4X4 gauze sponges, Aaron wrap - PICC line on discharge 2. Pleural effusions - Chest tube removed today - CXR neg for pneumothorax 3. Lung nodules - Likely septic emboli, on abx 4. DM II - AM sugars elevated - Levemir 30units qam - Levemir 15units HS 5. Thrombocytosis - Trend 6. Anemia - Hgb stable 7. Opioid dependence with withdrawal - Cont suboxone - Catapress 8. DVT - Lovenox sq 9. DKA - Resolved Dispo: - SNF placement underway Visit type - Emergency Visit Emergency Visit: Yes ED Registration Date: 07/24/17 Care time: The patient presented to the Emergency Department on the above date and was hospitalized for further evaluation of their emergent condition. - New Patient This patient is new to me today: No - Critical Care Critical Care patient: No
[2017-08-17] MEDS: DEXTROSE 5% IVPB SCH (11:59)
[2017-08-17] MEDS: TELAVANCIN HCL IVPB SCH (11:59)
[2017-08-17] MEDS: WATER IVPB SCH (11:59)
[2017-08-17] MEDS: PRENATAL VITAMINS W/ FOLIC ACID TABLET (FP) PO SCH (17:34)
[2017-08-17] MEDS: ACETAMINOPHEN 325 MG TABLET (FP) PO PRN (18:59)
[2017-08-17] MEDS: THIAMINE HCL 100 MG TABLET (FP) PO SCH (21:47)
[2017-08-17] MEDS: ZOLPIDEM TARTRATE 5 MG TABLET PO PRN (21:53)
[2017-08-18] MEDS: CYCLOBENZAPRINE HCL 10 MG TABLET (FP) PO SCH ×3 (06:33→23:14)
[2017-08-18] MEDS: GABAPENTIN 300 MG CAPSULE (FP) PO SCH ×3 (06:33→22:13)
[2017-08-18] MEDS: INSULIN DETEMIR 100 UNITS/ML MDV SQ SCH ×2 (06:59→22:15)
[2017-08-18] MEDS: INSULIN SLIDING SCALE (NOVOLOG) 1 VIAL SQ SCH ×4 (07:00→22:14)
--- NOTE | 2017-08-18 07:34 | PN ---
Progress Note, Physician Chief Complaint: IVDA with left arm cellulitis and infected thrombophlebitis History of Present Illness: 21yo LHD male PMH type 1 DM, current IV heroin user, Hepatitis C presented with altered mental status and generalized weakness. No more complaints of pain in the left arm. routine wound care daily. - Current Medication List Current Medications: Active Medications Acetaminophen (Tylenol -) 650 mg PO Q6H PRN PRN Reason: FEVER Last Admin: 08/17/17 18:59 Dose: 650 mg Buprenorphine/Naloxone (Suboxone 8mg/2mg Sl Film -) 1 each SL DAILY [facility] Last Admin: 08/17/17 10:07 Dose: 1 each Clonidine (Catapres -) 0.1 mg PO BID [facility] Last Admin: 08/17/17 21:46 Dose: 0.1 mg Cyclobenzaprine HCl (Flexeril -) 10 mg PO TID [facility] Last Admin: 08/18/17 06:33 Dose: 10 mg Enoxaparin Sodium (Lovenox -) 40 mg SQ DAILY [facility] Last Admin: 08/17/17 10:05 Dose: 40 mg Gabapentin (Neurontin -) 300 mg PO TID [facility] Last Admin: 08/18/17 06:33 Dose: 300 mg TELAVANCIN HCL 700 mg/ (Dextrose) 292 mls @ 292 mls/hr IVPB DAILY [facility] Last Admin: 08/17/17 11:59 Dose: 292 mls/hr Insulin Aspart (Novolog Vial Sliding Scale -) 1 vial SQ ACHS [facility] PRN Reason: Protocol Last Admin: 08/18/17 07:00 Dose: 4 units Insulin Detemir (Levemir Vial) 15 units SQ HS [facility] Last Admin: 08/17/17 23:03 Dose: 15 units Insulin Detemir (Levemir Vial) 30 units SQ AM [facility] Last Admin: 08/18/17 06:59 Dose: 30 units Nicotine (Nicoderm Patch -) 21 mg TD DAILY [facility] Last Admin: 08/17/17 10:07 Dose: 21 mg Nicotine Polacrilex (Nicorette Gum -) 2 mg BUC Q2H PRN PRN Reason: NICOTINE REPLACEMENT RX Pantoprazole Sodium (Protonix -) 40 mg PO DAILY [facility] Last Admin: 08/17/17 10:05 Dose: 40 mg Multivit/Folic Acid/Iron ( Vitamins (Sjr) -) 1 tab PO DAILY [facility] Last Admin: 08/17/17 17:34 Dose: 1 tab Sucralfate (Carafate Oral Suspension -) 1 gm PO QID [facility] Last Admin: 08/17/17 21:46 Dose: 1 gm Thiamine HCl (Vitamin B1 -) 100 mg PO HS [facility] Last Admin: 08/17/17 21:47 Dose: 100 mg Zolpidem Tartrate (Ambien -) 10 mg PO HS PRN PRN Reason: INSOMNIA Last Admin: 08/17/17 21:53 Dose: 10 mg - Objective Vital Signs: Vital Signs Temperature 98.4 F 08/18/17 06:00 Pulse Rate 95 H 08/18/17 06:00 Respiratory Rate 20 08/18/17 06:00 Blood Pressure 134/93 08/18/17 06:00 O2 Sat by Pulse Oximetry (%) 92 L 08/17/17 22:00 Vital Signs Period Temp Pulse Resp BP Sys/Nolan Pulse Ox Last 24 Hr 97.1 F-99.3 F 89-121 20-20 123-140/72-93 92-92 Constitutional: Yes: No Distress, Calm, Pallor, Thin Eyes: Yes: Conjunctiva Clear, EOM Intact HENT: Yes: Atraumatic, Normocephalic Neck: Yes: Supple, Trachea Midline Cardiovascular: Yes: Regular Rate and Rhythm, S1, S2. No: Murmur Respiratory: Yes: Regular, CTA Bilaterally Gastrointestinal: Yes: Normal Bowel Sounds, Soft. No: Tenderness ...Rectal Exam: Yes: Deferred Genitourinary: No: CVA Tenderness - Left, CVA Tenderness - Right Musculoskeletal: No: Muscle Pain, Muscle Weakness Extremities: No: Cool, Cyanosis Edema: No Peripheral Pulses WNL: Yes Peripheral Pulses: Left Radial: 2+, Right Radial: 2+ Integumentary: No: Jaundice, Rash Wound/Incision: Yes: Clean/Dry, Dressing Dry and Intact, Unapproximated Neurological: Yes: Alert, Oriented Psychiatric: Yes: Alert, Oriented Labs: CBC, BMP 08/16/17 07:00 08/16/17 23:00 INR, PTT INR 1.02 (0.82-1.09) 07/26/17 05:55 Fibrinogen 788.0 mg/dL (238-498) H 07/27/17 06:15 Problem List - Problems (1) MRSA (methicillin resistant Staphylococcus aureus) septicemia Assessment/Plan: 21 yo LHD male with Hepatitis C, DM type 1 in DKA with aggressive left forearm cellulitis, thrombophlebitis, and draining abscess at the site of injecting IV drugs. MRSA septicemia, secondary to injecting heroin with contaminated needles. POD#20 s/p I&D and debridement of infected thrombophlebitis left forearm. WBC normal range, wounds healing well. Physical therapy follow-up for ROM left elbow extension Dressing Left forearm/ antecubital fossa daily Wound Measurement: two linear [id number], yellow stained fibrinous exudate soft tissue, new granulation Dressing instructions: oil emulsion dressing, 4X4 gauze sponges, Aaron wrap Can follow up after discharge 2 weeks Code(s): A41.02 - SEPSIS DUE TO METHICILLIN RESISTANT STAPHYLOCOCCUS AUREUS (2) Thrombophlebitis arm Code(s): I80.8 - PHLEBITIS AND THROMBOPHLEBITIS OF OTHER SITES (3) Abscess of forearm Code(s): L02.419 - CUTANEOUS ABSCESS OF LIMB, UNSPECIFIED (4) Opioid dependence with withdrawal Code(s): F11.23 - OPIOID DEPENDENCE WITH WITHDRAWAL (5) Diabetes Code(s): E11.9 - TYPE 2 DIABETES MELLITUS WITHOUT COMPLICATIONS Qualifiers: Diabetes mellitus type: type 1 Diabetes mellitus complication status: with ketoacidosis Diabetes mellitus complication detail: without coma Qualified Code(s): E10.10 - Type 1 diabetes mellitus with ketoacidosis without coma
[2017-08-18] MEDS ORDERED: PT OWN MED DRAWER 7, Y5N ONE (09:31)
[2017-08-18] MEDS: SUCRALFATE 1 GM/10 ML UNIT DOSE CUPS PO SCH ×4 (09:56→23:13)
[2017-08-18] MEDS: NICOTINE 21 MG/24 HOURS TOPICAL PATCH TD SCH (09:57)
[2017-08-18] MEDS: PRENATAL VITAMINS W/ FOLIC ACID TABLET (FP) PO SCH (09:57)
[2017-08-18] MEDS: PANTOPRAZOLE 40 MG TABLET (FP) PO SCH (09:57)
[2017-08-18] MEDS: cloNIDine HCL 0.1 MG TABLET PO SCH ×2 (09:57→22:13)
--- NOTE | 2017-08-18 10:03 | PN ---
Progress Note, Physician History of Present Illness: 21 yo LHD male with Hepatitis C, DM type 1 in DKA with aggressive left forearm cellulitis, thrombophlebitis, and draining abscess at the site of injecting IV drugs. MRSA septicemia, secondary to injecting heroin with contaminated needles. POD#20 s/p I&D and debridement of infected thrombophlebitis left forearm. WBC normal range, wounds healing well. - Current Medication List Current Medications: Active Medications Acetaminophen (Tylenol -) 650 mg PO Q6H PRN PRN Reason: FEVER Last Admin: 18 18:59 Dose: 650 mg Clonidine (Catapres -) 0.1 mg PO BID [facility] Last Admin: 08/18/17 09:57 Dose: 0.1 mg Cyclobenzaprine HCl (Flexeril -) 10 mg PO TID [facility] Last Admin: 08/18/17 06:33 Dose: 10 mg Gabapentin (Neurontin -) 300 mg PO TID [facility] Last Admin: 08/18/17 06:33 Dose: 300 mg TELAVANCIN HCL 700 mg/ (Dextrose) 292 mls @ 292 mls/hr IVPB DAILY [facility] Last Admin: 08/17/17 11:59 Dose: 292 mls/hr Insulin Aspart (Novolog Vial Sliding Scale -) 1 vial SQ ACHS [facility] PRN Reason: Protocol Last Admin: 08/18/17 07:00 Dose: 4 units Insulin Detemir (Levemir Vial) 15 units SQ HS [facility] Last Admin: 08/17/17 23:03 Dose: 15 units Insulin Detemir (Levemir Vial) 30 units SQ AM [facility] Last Admin: 08/18/17 06:59 Dose: 30 units Nicotine (Nicoderm Patch -) 21 mg TD DAILY [facility] Last Admin: 08/18/17 09:57 Dose: 21 mg Nicotine Polacrilex (Nicorette Gum -) 2 mg BUC Q2H PRN PRN Reason: NICOTINE REPLACEMENT RX Pantoprazole Sodium (Protonix -) 40 mg PO DAILY [facility] Last Admin: 08/18/17 09:57 Dose: 40 mg Multivit/Folic Acid/Iron ( Vitamins (Sjr) -) 1 tab PO DAILY [facility] Last Admin: 08/18/17 09:57 Dose: 1 tab Sucralfate (Carafate Oral Suspension -) 1 gm PO QID [facility] Last Admin: 08/18/17 09:56 Dose: 1 gm Thiamine HCl (Vitamin B1 -) 100 mg PO HS [facility] Last Admin: 08/17/17 21:47 Dose: 100 mg - Objective Vital Signs: Vital Signs Temperature 98.4 F 08/18/17 06:00 Pulse Rate 95 H 08/18/17 06:00 Respiratory Rate 20 08/18/17 06:00 Blood Pressure 134/93 08/18/17 06:00 O2 Sat by Pulse Oximetry (%) 92 L 08/17/17 22:00 Eyes: Yes: WNL, Conjunctiva Clear, EOM Intact HENT: Yes: WNL, Atraumatic, Normocephalic Neck: Yes: WNL, Supple, Trachea Midline Cardiovascular: Yes: WNL, Regular Rate and Rhythm Respiratory: Yes: WNL, Regular, CTA Bilaterally Gastrointestinal: Yes: WNL, Normal Bowel Sounds Genitourinary: Yes: WNL Musculoskeletal: Yes: WNL Extremities: Yes: WNL Edema: No Integumentary: Yes: WNL Neurological: Yes: WNL, Alert, Oriented ...Motor Strength: WNL Psychiatric: Yes: WNL Labs: CBC, BMP 08/16/17 07:00 08/16/17 23:00 INR, PTT INR 1.02 (0.82-1.09) 07/26/17 05:55 Fibrinogen 788.0 mg/dL (238-498) H 07/27/17 06:15 Assessment/Plan 21 yo LHD male with Hepatitis C, DM type 1 in DKA with aggressive left forearm cellulitis, thrombophlebitis, and draining abscess at the site of injecting IV drugs. MRSA septicemia, secondary to injecting heroin with contaminated needles. POD#20 s/p I&D and debridement of infected thrombophlebitis left forearm. WBC normal range, wounds healing well. Cardiac red stable coint present rx
[2017-08-18] MEDS: WATER IVPB SCH (11:10)
[2017-08-18] MEDS: DEXTROSE 5% IVPB SCH (11:10)
[2017-08-18] MEDS: TELAVANCIN HCL IVPB SCH (11:10)
[2017-08-18] MEDS: BUPRENORPHINE/NALOXONE 8 MG/2 MG FILM PACKET SL SCH (11:19)
[2017-08-18] MEDS: ENOXAPARIN NA (PORCINE) 40 MG/0.4 ML DISP.SYRIN SQ SCH (11:19)
--- NOTE | 2017-08-18 20:17 | PN ---
Progress Note, Physician History of Present Illness: Pt states that he has headaches at night - Current Medication List Current Medications: Active Medications Acetaminophen (Tylenol -) 650 mg PO Q6H PRN PRN Reason: FEVER Last Admin: 08/17/17 18:59 Dose: 650 mg Buprenorphine/Naloxone (Suboxone 8mg/2mg Sl Film -) 1 each SL DAILY [facility] Last Admin: 08/18/17 11:19 Dose: 1 each Clonidine (Catapres -) 0.1 mg PO BID [facility] Last Admin: 08/18/17 09:57 Dose: 0.1 mg Cyclobenzaprine HCl (Flexeril -) 10 mg PO TID [facility] Last Admin: 08/18/17 14:08 Dose: 10 mg Enoxaparin Sodium (Lovenox -) 40 mg SQ DAILY [facility] Last Admin: 08/18/17 11:19 Dose: 40 mg Gabapentin (Neurontin -) 300 mg PO TID [facility] Last Admin: 08/18/17 14:08 Dose: 300 mg TELAVANCIN HCL 700 mg/ (Dextrose) 292 mls @ 292 mls/hr IVPB DAILY [facility] Last Admin: 08/18/17 11:10 Dose: 292 mls/hr Insulin Aspart (Novolog Vial Sliding Scale -) 1 vial SQ ACHS [facility] PRN Reason: Protocol Last Admin: 08/18/17 16:30 Dose: Not Given Insulin Detemir (Levemir Vial) 15 units SQ HS [facility] Last Admin: 08/17/17 23:03 Dose: 15 units Insulin Detemir (Levemir Vial) 30 units SQ AM [facility] Last Admin: 08/18/17 06:59 Dose: 30 units Nicotine (Nicoderm Patch -) 21 mg TD DAILY [facility] Last Admin: 08/18/17 09:57 Dose: 21 mg Nicotine Polacrilex (Nicorette Gum -) 2 mg BUC Q2H PRN PRN Reason: NICOTINE REPLACEMENT RX Pantoprazole Sodium (Protonix -) 40 mg PO DAILY [facility] Last Admin: 08/18/17 09:57 Dose: 40 mg Multivit/Folic Acid/Iron ( Vitamins (Sjr) -) 1 tab PO DAILY [facility] Last Admin: 08/18/17 09:57 Dose: 1 tab Sucralfate (Carafate Oral Suspension -) 1 gm PO QID [facility] Last Admin: 08/18/17 18:28 Dose: 1 gm Thiamine HCl (Vitamin B1 -) 100 mg PO HS [facility] Last Admin: 08/17/17 21:47 Dose: 100 mg Zolpidem Tartrate (Ambien -) 10 mg PO HS PRN PRN Reason: INSOMNIA - Objective Vital Signs: Vital Signs Temperature 98.1 F 08/18/17 18:00 Pulse Rate 103 H 08/18/17 18:00 Respiratory Rate 18 08/18/17 18:00 Blood Pressure 140/85 08/18/17 18:00 O2 Sat by Pulse Oximetry (%) 93 L 08/18/17 10:00 HENT: Yes: WNL Neck: Yes: WNL, Supple Cardiovascular: Yes: WNL, Regular Rate and Rhythm Respiratory: Yes: WNL, Regular, CTA Bilaterally Gastrointestinal: Yes: WNL, Normal Bowel Sounds, Soft Neurological: Yes: WNL, Alert, Oriented ...Motor Strength: WNL Labs: CBC, BMP 08/16/17 07:00 08/16/17 23:00 INR, PTT INR 1.02 (0.82-1.09) 07/26/17 05:55 Fibrinogen 788.0 mg/dL (238-498) H 07/27/17 06:15 Problem List - Problems (1) Pleural effusion Assessment/Plan: S/P chest tube placement and removal Code(s): J90 - PLEURAL EFFUSION, NOT ELSEWHERE CLASSIFIED (2) Sepsis Assessment/Plan: S/P I&D/debridement/fasciotomy Lt forearm MRSA Bacteremia/supprative thrombophlebitis IV telavancin/ceftaroline as per ID PEG was done and did not show any vegetations Code(s): A41.9 - SEPSIS, UNSPECIFIED ORGANISM (3) Diabetic ketoacidosis Assessment/Plan: Cont levemir Cont sliding scale w/ coverge Code(s): E13.10 - OTH DIABETES MELLITUS WITH KETOACIDOSIS WITHOUT COMA (4) Thrombocytosis Assessment/Plan: Reactive in nature Probably due to sepsis Code(s): D47.3 - ESSENTIAL (HEMORRHAGIC) THROMBOCYTHEMIA (5) Anemia Assessment/Plan: H/H stable s/p blood transfusion Code(s): D64.9 - ANEMIA, UNSPECIFIED (6) Headache Assessment/Plan: Tylenol prn Check ct scan head Code(s): R51 - HEADACHE (7) Opioid dependence with withdrawal Code(s): F11.23 - OPIOID DEPENDENCE WITH WITHDRAWAL
[2017-08-18] MEDS ORDERED: ACETAMINOPHEN 325 MG TABLET (FP) PO PRN (22:05)
[2017-08-18] MEDS: ACETAMINOPHEN 325 MG TABLET (FP) PO PRN (22:11)
[2017-08-18] MEDS: THIAMINE HCL 100 MG TABLET (FP) PO SCH (22:13)
[2017-08-18] MEDS: ZOLPIDEM TARTRATE 5 MG TABLET PO PRN (22:16)
[2017-08-19] MEDS: CYCLOBENZAPRINE HCL 10 MG TABLET (FP) PO SCH ×3 (06:11→21:28)
[2017-08-19] MEDS: GABAPENTIN 300 MG CAPSULE (FP) PO SCH ×3 (06:11→21:27)
[2017-08-19] MEDS: INSULIN DETEMIR 100 UNITS/ML MDV SQ SCH ×2 (06:45→21:28)
[2017-08-19] MEDS: INSULIN SLIDING SCALE (NOVOLOG) 1 VIAL SQ SCH ×4 (06:46→21:28)
[2017-08-19 07:33] LABS: HEMOGLOBIN 8.1 GM/dL (11.7-16.9); MCH 30.8 pg (25.7-33.7); MCHC 33.9 g/dl (32.0-35.9); MEAN CELL VOLUME 90.9 fl (80-96); MEAN PLT VOLUME 8.3 fl (7.5-11.1); PLATELET COUNT 393 K/MM3 (134-434); RBC 2.64 M/mm3 (4.00-5.60); RDW 16.5 % (11.9-15.9); WHITE BLOOD COUNT 5.6 K/mm3 (4.0-10.0)
[2017-08-19 07:55] LABS: ALBUMIN 1.8 g/dl (3.4-5.0); ANION GAP 10 (8-16); BLOOD UREA NITROGEN 27 mg/dL (7-18); CALCIUM 8.1 mg/dL (8.5-10.1); CHLORIDE 97 mmol/L (98-107); CO2 27 mmol/L (21-32); POTASSIUM 4.5 mmol/L (3.5-5.1); SGOT/AST 124 U/L (15-37); SGPT/ALT 85 U/L (12-78); SODIUM 134 mmol/L (136-145)
[2017-08-19 07:57] LABS: ALK PHOS 159 U/L (45-117); BILIRUBIN,TOTAL 0.4 mg/dL (0.2-1.0); TOT PROT 7.6 g/dl (6.4-8.2)
[2017-08-19 08:16] LABS: GLUCOSE,RANDOM 449 mg/dL (74-106)
--- NOTE | 2017-08-19 09:28 | PN ---
Progress Note, Physician History of Present Illness: 21 yo LHD male with Hepatitis C, DM type 1 in DKA with aggressive left forearm cellulitis, thrombophlebitis, and draining abscess at the site of injecting IV drugs. MRSA septicemia, secondary to injecting heroin with contaminated needles. POD#20 s/p I&D and debridement of infected thrombophlebitis left forearm. WBC normal range, wounds healing well. - Current Medication List Current Medications: Active Medications Acetaminophen (Tylenol -) 650 mg PO Q6H PRN PRN Reason: FEVER Last Admin: 08/18/17 22:11 Dose: 650 mg Acetaminophen (Tylenol -) 650 mg PO Q4H PRN PRN Reason: pain Buprenorphine/Naloxone (Suboxone 8mg/2mg Sl Film -) 1 each SL DAILY [facility] Last Admin: 08/18/17 11:19 Dose: 1 each Clonidine (Catapres -) 0.1 mg PO BID [facility] Last Admin: 08/18/17 22:13 Dose: 0.1 mg Cyclobenzaprine HCl (Flexeril -) 10 mg PO TID [facility] Last Admin: 08/19/17 06:11 Dose: 10 mg Enoxaparin Sodium (Lovenox -) 40 mg SQ DAILY [facility] Last Admin: 08/18/17 11:19 Dose: 40 mg Gabapentin (Neurontin -) 300 mg PO TID [facility] Last Admin: 08/19/17 06:11 Dose: 300 mg TELAVANCIN HCL 700 mg/ (Dextrose) 292 mls @ 292 mls/hr IVPB DAILY [facility] Last Admin: 08/18/17 11:10 Dose: 292 mls/hr Insulin Aspart (Novolog Vial Sliding Scale -) 1 vial SQ ACHS [facility] PRN Reason: Protocol Last Admin: 08/19/17 06:46 Dose: 12 units Insulin Detemir (Levemir Vial) 15 units SQ HS [facility] Last Admin: 08/18/17 22:15 Dose: 15 units Insulin Detemir (Levemir Vial) 30 units SQ AM [facility] Last Admin: 08/19/17 06:45 Dose: 30 units Nicotine (Nicoderm Patch -) 21 mg TD DAILY [facility] Last Admin: 08/18/17 09:57 Dose: 21 mg Nicotine Polacrilex (Nicorette Gum -) 2 mg BUC Q2H PRN PRN Reason: NICOTINE REPLACEMENT RX Pantoprazole Sodium (Protonix -) 40 mg PO DAILY [facility] Last Admin: 08/18/17 09:57 Dose: 40 mg Multivit/Folic Acid/Iron ( Vitamins (Sjr) -) 1 tab PO DAILY [facility] Last Admin: 08/18/17 09:57 Dose: 1 tab Sucralfate (Carafate Oral Suspension -) 1 gm PO QID [facility] Last Admin: 08/18/17 23:13 Dose: 1 gm Thiamine HCl (Vitamin B1 -) 100 mg PO HS [facility] Last Admin: 08/18/17 22:13 Dose: 100 mg Zolpidem Tartrate (Ambien -) 10 mg PO HS PRN PRN Reason: INSOMNIA Last Admin: 08/18/17 22:16 Dose: 10 mg - Objective Vital Signs: Vital Signs Temperature 97.8 F 08/19/17 06:00 Pulse Rate 96 H 08/19/17 06:00 Respiratory Rate 18 08/19/17 06:00 Blood Pressure 137/81 08/19/17 06:00 O2 Sat by Pulse Oximetry (%) 93 L 08/18/17 22:00 Eyes: Yes: WNL, Conjunctiva Clear, EOM Intact HENT: Yes: WNL, Atraumatic, Normocephalic Neck: Yes: WNL, Supple, Trachea Midline Cardiovascular: Yes: WNL, Regular Rate and Rhythm Respiratory: Yes: WNL, Regular, CTA Bilaterally Gastrointestinal: Yes: WNL, Normal Bowel Sounds Genitourinary: Yes: WNL Musculoskeletal: Yes: WNL Extremities: Yes: WNL Edema: No Integumentary: Yes: WNL Neurological: Yes: WNL, Alert, Oriented ...Motor Strength: WNL Psychiatric: Yes: WNL Labs: CBC, BMP 08/19/17 07:05 08/19/17 07:05 INR, PTT INR 1.02 (0.82-1.09) 07/26/17 05:55 Fibrinogen 788.0 mg/dL (238-498) H 07/27/17 06:15 Assessment/Plan 21 yo LHD male with Hepatitis C, DM type 1 in DKA with aggressive left forearm cellulitis, thrombophlebitis, and draining abscess at the site of injecting IV drugs. MRSA septicemia, secondary to injecting heroin with contaminated needles. POD#20 s/p I&D and debridement of infected thrombophlebitis left forearm. WBC normal range, wounds healing well. Cardiac red stable coint present rx
[2017-08-19 10:11] LABS: PLATELET ESTIMATE NORMAL
[2017-08-19] MEDS ORDERED: PT OWN MED DRAWER 7, Y5N ONE (10:35)
[2017-08-19] MEDS: BUPRENORPHINE/NALOXONE 8 MG/2 MG FILM PACKET SL SCH (10:41)
[2017-08-19] MEDS: SUCRALFATE 1 GM/10 ML UNIT DOSE CUPS PO SCH ×4 (10:41→21:28)
[2017-08-19] MEDS: PRENATAL VITAMINS W/ FOLIC ACID TABLET (FP) PO SCH (10:42)
[2017-08-19] MEDS: ENOXAPARIN NA (PORCINE) 40 MG/0.4 ML DISP.SYRIN SQ SCH (10:42)
[2017-08-19] MEDS: DEXTROSE 5% IVPB SCH (10:42)
[2017-08-19] MEDS: WATER IVPB SCH (10:42)
[2017-08-19] MEDS: cloNIDine HCL 0.1 MG TABLET PO SCH ×2 (10:42→21:28)
[2017-08-19] MEDS: NICOTINE 21 MG/24 HOURS TOPICAL PATCH TD SCH (10:42)
[2017-08-19] MEDS: PANTOPRAZOLE 40 MG TABLET (FP) PO SCH (10:42)
[2017-08-19] MEDS: TELAVANCIN HCL IVPB SCH (10:42)
[2017-08-19] MEDS: ACETAMINOPHEN 325 MG TABLET (FP) PO PRN (16:08)
[2017-08-19] MEDS ORDERED: INSULIN (NOVOLOG) ASPART 100 UNITS/ML 10ML VIAL ONE (21:04)
[2017-08-19] MEDS: ZOLPIDEM TARTRATE 5 MG TABLET PO PRN (21:27)
[2017-08-19] MEDS: THIAMINE HCL 100 MG TABLET (FP) PO SCH (21:40)
--- NOTE | 2017-08-19 23:07 | PN ---
Progress Note, Physician - Current Medication List Current Medications: Active Medications Acetaminophen (Tylenol -) 650 mg PO Q6H PRN PRN Reason: FEVER Last Admin: 08/19/17 16:08 Dose: 650 mg Acetaminophen (Tylenol -) 650 mg PO Q4H PRN PRN Reason: pain Buprenorphine/Naloxone (Suboxone 8mg/2mg Sl Film -) 1 each SL DAILY [facility] Last Admin: 08/19/17 10:41 Dose: 1 each Clonidine (Catapres -) 0.1 mg PO BID [facility] Last Admin: 08/19/17 21:28 Dose: 0.1 mg Cyclobenzaprine HCl (Flexeril -) 10 mg PO TID [facility] Last Admin: 08/19/17 21:28 Dose: 10 mg Enoxaparin Sodium (Lovenox -) 40 mg SQ DAILY [facility] Last Admin: 08/19/17 10:42 Dose: 40 mg Gabapentin (Neurontin -) 300 mg PO TID [facility] Last Admin: 08/19/17 21:27 Dose: 300 mg TELAVANCIN HCL 700 mg/ (Dextrose) 292 mls @ 292 mls/hr IVPB DAILY [facility] Last Admin: 08/19/17 10:42 Dose: 292 mls/hr Insulin Aspart (Novolog Vial Sliding Scale -) 1 vial SQ ACHS [facility] PRN Reason: Protocol Last Admin: 08/19/17 21:28 Dose: 4 units Insulin Detemir (Levemir Vial) 15 units SQ HS [facility] Last Admin: 08/19/17 21:28 Dose: 15 units Insulin Detemir (Levemir Vial) 30 units SQ AM [facility] Last Admin: 08/19/17 06:45 Dose: 30 units Nicotine (Nicoderm Patch -) 21 mg TD DAILY [facility] Last Admin: 08/19/17 10:42 Dose: 21 mg Nicotine Polacrilex (Nicorette Gum -) 2 mg BUC Q2H PRN PRN Reason: NICOTINE REPLACEMENT RX Pantoprazole Sodium (Protonix -) 40 mg PO DAILY [facility] Last Admin: 08/19/17 10:42 Dose: 40 mg Multivit/Folic Acid/Iron ( Vitamins (Sjr) -) 1 tab PO DAILY [facility] Last Admin: 08/19/17 10:42 Dose: 1 tab Sucralfate (Carafate Oral Suspension -) 1 gm PO QID [facility] Last Admin: 08/19/17 21:28 Dose: 1 gm Thiamine HCl (Vitamin B1 -) 100 mg PO HS [facility] Last Admin: 08/19/17 21:40 Dose: 100 mg Zolpidem Tartrate (Ambien -) 10 mg PO HS PRN PRN Reason: INSOMNIA Last Admin: 08/19/17 21:27 Dose: 10 mg - Objective Vital Signs: Vital Signs Temperature 99.4 F 08/19/17 17:37 Pulse Rate 121 H 08/19/17 17:37 Respiratory Rate 18 08/19/17 17:37 Blood Pressure 148/90 08/19/17 17:37 O2 Sat by Pulse Oximetry (%) 95 08/19/17 10:00 Labs: CBC, BMP 08/19/17 07:05 08/19/17 07:05 INR, PTT INR 1.02 (0.82-1.09) 07/26/17 05:55 Fibrinogen 788.0 mg/dL (238-498) H 07/27/17 06:15 Problem List - Problems (1) Pleural effusion Code(s): J90 - PLEURAL EFFUSION, NOT ELSEWHERE CLASSIFIED (2) Sepsis Code(s): A41.9 - SEPSIS, UNSPECIFIED ORGANISM (3) Diabetic ketoacidosis Code(s): E13.10 - OTH DIABETES MELLITUS WITH KETOACIDOSIS WITHOUT COMA (4) Thrombocytosis Code(s): D47.3 - ESSENTIAL (HEMORRHAGIC) THROMBOCYTHEMIA (5) Anemia Code(s): D64.9 - ANEMIA, UNSPECIFIED (6) Headache Code(s): R51 - HEADACHE (7) Opioid dependence with withdrawal Code(s): F11.23 - OPIOID DEPENDENCE WITH WITHDRAWAL
[2017-08-20] MEDS: GABAPENTIN 300 MG CAPSULE (FP) PO SCH ×3 (06:27→22:15)
[2017-08-20] MEDS: INSULIN DETEMIR 100 UNITS/ML MDV SQ SCH ×2 (06:27→22:16)
[2017-08-20] MEDS: CYCLOBENZAPRINE HCL 10 MG TABLET (FP) PO SCH ×3 (06:27→22:15)
[2017-08-20] MEDS: INSULIN SLIDING SCALE (NOVOLOG) 1 VIAL SQ SCH ×4 (06:28→22:16)
[2017-08-20] MEDS: BUPRENORPHINE/NALOXONE 8 MG/2 MG FILM PACKET SL SCH (10:09)
[2017-08-20] MEDS: ENOXAPARIN NA (PORCINE) 40 MG/0.4 ML DISP.SYRIN SQ SCH (10:09)
[2017-08-20] MEDS: PRENATAL VITAMINS W/ FOLIC ACID TABLET (FP) PO SCH (10:09)
[2017-08-20] MEDS: PANTOPRAZOLE 40 MG TABLET (FP) PO SCH (10:09)
[2017-08-20] MEDS: NICOTINE 21 MG/24 HOURS TOPICAL PATCH TD SCH (10:09)
[2017-08-20] MEDS: cloNIDine HCL 0.1 MG TABLET PO SCH ×2 (10:09→22:15)
[2017-08-20] MEDS: SUCRALFATE 1 GM/10 ML UNIT DOSE CUPS PO SCH ×4 (10:09→22:15)
[2017-08-20] MEDS ORDERED: PT OWN MED DRAWER 7, Y5N ONE (10:54)
[2017-08-20] MEDS ORDERED: INSULIN (NOVOLOG) ASPART 100 UNITS/ML 10ML VIAL ONE (11:43)
[2017-08-20] MEDS: WATER IVPB SCH (15:28)
[2017-08-20] MEDS: TELAVANCIN HCL IVPB SCH (15:28)
[2017-08-20] MEDS: DEXTROSE 5% IVPB SCH (15:28)
[2017-08-20] MEDS: ZOLPIDEM TARTRATE 5 MG TABLET PO PRN (22:15)
[2017-08-20] MEDS: THIAMINE HCL 100 MG TABLET (FP) PO SCH (22:15)
[2017-08-21] MEDS: CYCLOBENZAPRINE HCL 10 MG TABLET (FP) PO SCH ×3 (06:23→21:35)
[2017-08-21] MEDS: GABAPENTIN 300 MG CAPSULE (FP) PO SCH ×3 (06:23→21:35)
[2017-08-21] MEDS: INSULIN DETEMIR 100 UNITS/ML MDV SQ SCH ×2 (06:24→21:26)
[2017-08-21] MEDS: INSULIN SLIDING SCALE (NOVOLOG) 1 VIAL SQ SCH ×4 (06:25→21:25)
[2017-08-21] MEDS ORDERED: PT OWN MED DRAWER 7, Y5N ONE (09:34)
[2017-08-21] MEDS: NICOTINE 21 MG/24 HOURS TOPICAL PATCH TD SCH (09:41)
[2017-08-21] MEDS: ENOXAPARIN NA (PORCINE) 40 MG/0.4 ML DISP.SYRIN SQ SCH (09:41)
[2017-08-21] MEDS: SUCRALFATE 1 GM/10 ML UNIT DOSE CUPS PO SCH ×4 (09:41→21:34)
[2017-08-21] MEDS: PRENATAL VITAMINS W/ FOLIC ACID TABLET (FP) PO SCH (09:42)
[2017-08-21] MEDS: BUPRENORPHINE/NALOXONE 8 MG/2 MG FILM PACKET SL SCH (09:42)
[2017-08-21] MEDS: cloNIDine HCL 0.1 MG TABLET PO SCH ×2 (09:42→21:34)
[2017-08-21] MEDS: PANTOPRAZOLE 40 MG TABLET (FP) PO SCH (09:42)
--- NOTE | 2017-08-21 09:59 | PN ---
Progress Note, Physician Chief Complaint: IVDA with left arm cellulitis and infected thrombophlebitis History of Present Illness: 21yo LHD male PMH type 1 DM, current IV heroin user, Hepatitis C presented with altered mental status and generalized weakness. No more complaints of pain in the left arm. routine wound care daily. - Current Medication List Current Medications: Active Medications Acetaminophen (Tylenol -) 650 mg PO Q6H PRN PRN Reason: FEVER Last Admin: 08/19/17 16:08 Dose: 650 mg Acetaminophen (Tylenol -) 650 mg PO Q4H PRN PRN Reason: pain Buprenorphine/Naloxone (Suboxone 8mg/2mg Sl Film -) 1 each SL DAILY [facility] Last Admin: 08/21/17 09:42 Dose: 1 each Clonidine (Catapres -) 0.1 mg PO BID [facility] Last Admin: 08/21/17 09:42 Dose: 0.1 mg Cyclobenzaprine HCl (Flexeril -) 10 mg PO TID [facility] Last Admin: 08/21/17 06:23 Dose: 10 mg Enoxaparin Sodium (Lovenox -) 40 mg SQ DAILY [facility] Last Admin: 08/21/17 09:41 Dose: 40 mg Gabapentin (Neurontin -) 300 mg PO TID [facility] Last Admin: 08/21/17 06:23 Dose: 300 mg TELAVANCIN HCL 700 mg/ (Dextrose) 292 mls @ 292 mls/hr IVPB DAILY [facility] Last Admin: 08/20/17 15:28 Dose: 292 mls/hr Insulin Aspart (Novolog Vial Sliding Scale -) 1 vial SQ ACHS [facility] PRN Reason: Protocol Last Admin: 08/21/17 06:25 Dose: 4 units Insulin Detemir (Levemir Vial) 15 units SQ HS [facility] Last Admin: 08/20/17 22:16 Dose: 15 units Insulin Detemir (Levemir Vial) 30 units SQ AM [facility] Last Admin: 08/21/17 06:24 Dose: 30 units Nicotine (Nicoderm Patch -) 21 mg TD DAILY [facility] Last Admin: 08/21/17 09:41 Dose: 21 mg Nicotine Polacrilex (Nicorette Gum -) 2 mg BUC Q2H PRN PRN Reason: NICOTINE REPLACEMENT RX Pantoprazole Sodium (Protonix -) 40 mg PO DAILY [facility] Last Admin: 08/21/17 09:42 Dose: 40 mg Multivit/Folic Acid/Iron ( Vitamins (Sjr) -) 1 tab PO DAILY [facility] Last Admin: 08/21/17 09:42 Dose: 1 tab Sucralfate (Carafate Oral Suspension -) 1 gm PO QID [facility] Last Admin: 08/21/17 09:41 Dose: 1 gm Thiamine HCl (Vitamin B1 -) 100 mg PO HS [facility] Last Admin: 08/20/17 22:15 Dose: 100 mg Zolpidem Tartrate (Ambien -) 10 mg PO HS PRN PRN Reason: INSOMNIA Last Admin: 08/20/17 22:15 Dose: 10 mg - Objective Vital Signs: Vital Signs Temperature 98.5 F 08/21/17 08:51 Pulse Rate 111 H 08/21/17 08:51 Respiratory Rate 16 08/21/17 08:51 Blood Pressure 139/98 08/21/17 08:51 O2 Sat by Pulse Oximetry (%) 95 08/20/17 22:00 Constitutional: Yes: No Distress, Calm, Poor Hygeine, Thin Eyes: Yes: Conjunctiva Clear, EOM Intact HENT: Yes: Atraumatic, Normocephalic Neck: Yes: Supple, Trachea Midline Cardiovascular: Yes: Regular Rate and Rhythm, S1, S2 Respiratory: Yes: Regular, CTA Bilaterally Gastrointestinal: Yes: Normal Bowel Sounds, Soft. No: Tenderness ...Rectal Exam: Yes: Deferred Genitourinary: No: CVA Tenderness - Left, CVA Tenderness - Right Musculoskeletal: No: Muscle Pain, Muscle Weakness Extremities: No: Cool, Cyanosis Wound/Incision: Yes: Clean/Dry, Unapproximated Neurological: Yes: Alert, Oriented Psychiatric: Yes: Alert, Oriented Labs: CBC, BMP 08/19/17 07:05 08/19/17 07:05 INR, PTT INR 1.02 (0.82-1.09) 07/26/17 05:55 Fibrinogen 788.0 mg/dL (238-498) H 07/27/17 06:15 Problem List - Problems (1) MRSA (methicillin resistant Staphylococcus aureus) septicemia Assessment/Plan: 21 yo LHD male with Hepatitis C, DM type 1 in DKA with aggressive left forearm cellulitis, thrombophlebitis, and draining abscess at the site of injecting IV drugs. MRSA septicemia, secondary to injecting heroin with contaminated needles. POD#20 s/p I&D and debridement of infected thrombophlebitis left forearm. WBC normal range, wounds healing well. Physical therapy follow-up for ROM left elbow extension Dressing Left forearm/ antecubital fossa daily Wound Measurement: two linear [id number], yellow stained fibrinous exudate soft tissue, new granulation Dressing instructions: oil emulsion dressing, 4X4 gauze sponges, Aaron wrap Can follow up after discharge 2 weeks Code(s): A41.02 - SEPSIS DUE TO METHICILLIN RESISTANT STAPHYLOCOCCUS AUREUS (2) Thrombophlebitis arm Code(s): I80.8 - PHLEBITIS AND THROMBOPHLEBITIS OF OTHER SITES (3) Abscess of forearm Code(s): L02.419 - CUTANEOUS ABSCESS OF LIMB, UNSPECIFIED (4) Opioid dependence with withdrawal Code(s): F11.23 - OPIOID DEPENDENCE WITH WITHDRAWAL (5) Diabetes Code(s): E11.9 - TYPE 2 DIABETES MELLITUS WITHOUT COMPLICATIONS Qualifiers: Diabetes mellitus type: type 1 Diabetes mellitus complication status: with ketoacidosis Diabetes mellitus complication detail: without coma Qualified Code(s): E10.10 - Type 1 diabetes mellitus with ketoacidosis without coma
[2017-08-21] MEDS: DEXTROSE 5% IVPB SCH (12:42)
[2017-08-21] MEDS: TELAVANCIN HCL IVPB SCH (12:42)
[2017-08-21] MEDS: WATER IVPB SCH (12:42)
[2017-08-21] MEDS ORDERED: INSULIN (NOVOLOG) ASPART 100 UNITS/ML 10ML VIAL ONE (20:54)
--- NOTE | 2017-08-21 21:31 | PN ---
Progress Note, Physician - Current Medication List Current Medications: Active Medications Acetaminophen (Tylenol -) 650 mg PO Q6H PRN PRN Reason: FEVER Last Admin: 08/19/17 16:08 Dose: 650 mg Acetaminophen (Tylenol -) 650 mg PO Q4H PRN PRN Reason: pain Buprenorphine/Naloxone (Suboxone 8mg/2mg Sl Film -) 1 each SL DAILY [facility] Last Admin: 08/21/17 09:42 Dose: 1 each Clonidine (Catapres -) 0.1 mg PO BID [facility] Last Admin: 08/21/17 09:42 Dose: 0.1 mg Cyclobenzaprine HCl (Flexeril -) 10 mg PO TID [facility] Last Admin: 08/21/17 14:00 Dose: 10 mg Enoxaparin Sodium (Lovenox -) 40 mg SQ DAILY [facility] Last Admin: 08/21/17 09:41 Dose: 40 mg Gabapentin (Neurontin -) 300 mg PO TID [facility] Last Admin: 08/21/17 13:59 Dose: 300 mg TELAVANCIN HCL 700 mg/ (Dextrose) 292 mls @ 292 mls/hr IVPB DAILY [facility] Last Admin: 08/21/17 12:42 Dose: 292 mls/hr Insulin Aspart (Novolog Vial Sliding Scale -) 1 vial SQ ACHS [facility] PRN Reason: Protocol Last Admin: 08/21/17 21:25 Dose: 10 units Insulin Detemir (Levemir Vial) 15 units SQ HS [facility] Last Admin: 08/21/17 21:26 Dose: 15 units Insulin Detemir (Levemir Vial) 30 units SQ AM [facility] Last Admin: 08/21/17 06:24 Dose: 30 units Nicotine (Nicoderm Patch -) 21 mg TD DAILY [facility] Last Admin: 08/21/17 09:41 Dose: 21 mg Nicotine Polacrilex (Nicorette Gum -) 2 mg BUC Q2H PRN PRN Reason: NICOTINE REPLACEMENT RX Pantoprazole Sodium (Protonix -) 40 mg PO DAILY [facility] Last Admin: 08/21/17 09:42 Dose: 40 mg Multivit/Folic Acid/Iron ( Vitamins (Sjr) -) 1 tab PO DAILY [facility] Last Admin: 08/21/17 09:42 Dose: 1 tab Sucralfate (Carafate Oral Suspension -) 1 gm PO QID [facility] Last Admin: 08/21/17 18:47 Dose: 1 gm Thiamine HCl (Vitamin B1 -) 100 mg PO HS [facility] Last Admin: 08/20/17 22:15 Dose: 100 mg Zolpidem Tartrate (Ambien -) 10 mg PO HS PRN PRN Reason: INSOMNIA Last Admin: 08/20/17 22:15 Dose: 10 mg - Objective Vital Signs: Vital Signs Temperature 98.7 F 08/21/17 19:00 Pulse Rate 106 H 08/21/17 19:00 Respiratory Rate 20 08/21/17 19:00 Blood Pressure 134/83 08/21/17 19:00 O2 Sat by Pulse Oximetry (%) 93 L 08/21/17 16:00 Labs: CBC, BMP 08/19/17 07:05 08/19/17 07:05 INR, PTT INR 1.02 (0.82-1.09) 07/26/17 05:55 Fibrinogen 788.0 mg/dL (238-498) H 07/27/17 06:15 Problem List - Problems (1) Pleural effusion Code(s): J90 - PLEURAL EFFUSION, NOT ELSEWHERE CLASSIFIED (2) Sepsis Code(s): A41.9 - SEPSIS, UNSPECIFIED ORGANISM (3) Diabetic ketoacidosis Code(s): E13.10 - OTH DIABETES MELLITUS WITH KETOACIDOSIS WITHOUT COMA (4) Thrombocytosis Code(s): D47.3 - ESSENTIAL (HEMORRHAGIC) THROMBOCYTHEMIA (5) Anemia Code(s): D64.9 - ANEMIA, UNSPECIFIED (6) Headache Code(s): R51 - HEADACHE (7) Opioid dependence with withdrawal Code(s): F11.23 - OPIOID DEPENDENCE WITH WITHDRAWAL
[2017-08-21] MEDS: THIAMINE HCL 100 MG TABLET (FP) PO SCH (21:34)
[2017-08-21] MEDS: ZOLPIDEM TARTRATE 5 MG TABLET PO PRN (21:34)
[2017-08-22] MEDS: CYCLOBENZAPRINE HCL 10 MG TABLET (FP) PO SCH ×3 (06:24→21:29)
[2017-08-22] MEDS: GABAPENTIN 300 MG CAPSULE (FP) PO SCH ×3 (06:25→21:29)
[2017-08-22] MEDS: INSULIN SLIDING SCALE (NOVOLOG) 1 VIAL SQ SCH ×4 (06:25→21:31)
[2017-08-22] MEDS ORDERED: INSULIN (NOVOLOG) ASPART 100 UNITS/ML 10ML VIAL ONE (06:45)
[2017-08-22] MEDS: INSULIN DETEMIR 100 UNITS/ML MDV SQ SCH ×2 (07:00→21:30)
[2017-08-22] MEDS ORDERED: PT OWN MED DRAWER 7, Y5N ONE (09:23)
[2017-08-22] MEDS: SUCRALFATE 1 GM/10 ML UNIT DOSE CUPS PO SCH ×4 (09:32→21:30)
[2017-08-22] MEDS: PANTOPRAZOLE 40 MG TABLET (FP) PO SCH (09:33)
[2017-08-22] MEDS: TELAVANCIN HCL IVPB SCH (09:33)
[2017-08-22] MEDS: ENOXAPARIN NA (PORCINE) 40 MG/0.4 ML DISP.SYRIN SQ SCH (09:33)
[2017-08-22] MEDS: WATER IVPB SCH (09:33)
[2017-08-22] MEDS: DEXTROSE 5% IVPB SCH (09:33)
[2017-08-22] MEDS: BUPRENORPHINE/NALOXONE 8 MG/2 MG FILM PACKET SL SCH (09:33)
[2017-08-22] MEDS: cloNIDine HCL 0.1 MG TABLET PO SCH ×2 (09:33→21:29)
[2017-08-22] MEDS: NICOTINE 21 MG/24 HOURS TOPICAL PATCH TD SCH (09:34)
[2017-08-22] MEDS: PRENATAL VITAMINS W/ FOLIC ACID TABLET (FP) PO SCH (09:34)
--- NOTE | 2017-08-22 11:42 | PN ---
[facility] Progress Note (SOAP) Subjective: patient remains hosptialized for medical care, comfortable on current suboxone dose Objective: 08/22/17 11:41 Vital Signs - 24 hr 08/21/17 08/21/17 08/21/17 14:49 16:00 19:00 Temperature 98.0 F 98.7 F Pulse Rate 94 H 106 H Respiratory 20 20 Rate Blood Pressure 128/67 134/83 O2 Sat by Pulse 93 L Oximetry (%) 08/21/17 08/21/17 08/22/17 21:00 22:00 06:00 Temperature 98.6 F 99.0 F Pulse Rate 97 H 95 H Respiratory 20 20 Rate Blood Pressure 136/89 129/83 O2 Sat by Pulse 92 L 92 L Oximetry (%) 08/22/17 08/22/17 09:46 10:00 Temperature 97.6 F Pulse Rate 84 Respiratory 20 Rate Blood Pressure 116/60 O2 Sat by Pulse 95 Oximetry (%) Laboratory Results - last 24 hr 08/21/17 08/21/17 08/21/17 11:42 16:57 21:24 POC Glucometer 182 94 357 08/22/17 08/22/17 06:24 11:05 POC Glucometer 80 188 glucose controlle, no signs of opioid withdrawal Assessment: 08/22/17 11:42 oud - on mat with suboxone cont 8m diayl, prescription sent to [facility] for discharge
[2017-08-22] MEDS: THIAMINE HCL 100 MG TABLET (FP) PO SCH (21:29)
[2017-08-22] MEDS: ZOLPIDEM TARTRATE 5 MG TABLET PO PRN (21:29)
--- NOTE | 2017-08-22 22:28 | PN ---
Progress Note, Physician - Current Medication List Current Medications: Active Medications Acetaminophen (Tylenol -) 650 mg PO Q6H PRN PRN Reason: FEVER Last Admin: 08/19/17 16:08 Dose: 650 mg Acetaminophen (Tylenol -) 650 mg PO Q4H PRN PRN Reason: pain Buprenorphine/Naloxone (Suboxone 8mg/2mg Sl Film -) 1 each SL DAILY [facility] Last Admin: 08/22/17 09:33 Dose: 1 each Clonidine (Catapres -) 0.1 mg PO BID [facility] Last Admin: 08/22/17 21:29 Dose: 0.1 mg Cyclobenzaprine HCl (Flexeril -) 10 mg PO TID [facility] Last Admin: 08/22/17 21:29 Dose: 10 mg Enoxaparin Sodium (Lovenox -) 40 mg SQ DAILY [facility] Last Admin: 08/22/17 09:33 Dose: 40 mg Gabapentin (Neurontin -) 300 mg PO TID [facility] Last Admin: 08/22/17 21:29 Dose: 300 mg TELAVANCIN HCL 700 mg/ (Dextrose) 292 mls @ 292 mls/hr IVPB DAILY [facility] Last Admin: 08/22/17 09:33 Dose: 292 mls/hr Insulin Aspart (Novolog Vial Sliding Scale -) 1 vial SQ ACHS [facility] PRN Reason: Protocol Last Admin: 08/22/17 21:31 Dose: 6 units Insulin Detemir (Levemir Vial) 15 units SQ HS [facility] Last Admin: 08/22/17 21:30 Dose: 15 units Insulin Detemir (Levemir Vial) 30 units SQ AM [facility] Last Admin: 08/22/17 07:00 Dose: 30 units Nicotine (Nicoderm Patch -) 21 mg TD DAILY [facility] Last Admin: 08/22/17 09:34 Dose: 21 mg Nicotine Polacrilex (Nicorette Gum -) 2 mg BUC Q2H PRN PRN Reason: NICOTINE REPLACEMENT RX Pantoprazole Sodium (Protonix -) 40 mg PO DAILY [facility] Last Admin: 08/22/17 09:33 Dose: 40 mg Multivit/Folic Acid/Iron ( Vitamins (Sjr) -) 1 tab PO DAILY [facility] Last Admin: 08/22/17 09:34 Dose: 1 tab Sucralfate (Carafate Oral Suspension -) 1 gm PO QID [facility] Last Admin: 08/22/17 21:30 Dose: 1 gm Thiamine HCl (Vitamin B1 -) 100 mg PO HS [facility] Last Admin: 08/22/17 21:29 Dose: 100 mg Zolpidem Tartrate (Ambien -) 10 mg PO HS PRN PRN Reason: INSOMNIA Last Admin: 08/22/17 21:29 Dose: 10 mg - Objective Vital Signs: Vital Signs Temperature 99.1 F 08/22/17 18:34 Pulse Rate 100 H 08/22/17 18:34 Respiratory Rate 20 08/22/17 18:34 Blood Pressure 145/88 08/22/17 18:34 O2 Sat by Pulse Oximetry (%) 95 08/22/17 09:46 Labs: CBC, BMP 08/19/17 07:05 08/19/17 07:05 INR, PTT INR 1.02 (0.82-1.09) 07/26/17 05:55 Fibrinogen 788.0 mg/dL (238-498) H 07/27/17 06:15 Problem List - Problems (1) Pleural effusion Code(s): J90 - PLEURAL EFFUSION, NOT ELSEWHERE CLASSIFIED (2) Sepsis Code(s): A41.9 - SEPSIS, UNSPECIFIED ORGANISM (3) Diabetic ketoacidosis Code(s): E13.10 - OTH DIABETES MELLITUS WITH KETOACIDOSIS WITHOUT COMA (4) Thrombocytosis Code(s): D47.3 - ESSENTIAL (HEMORRHAGIC) THROMBOCYTHEMIA (5) Anemia Code(s): D64.9 - ANEMIA, UNSPECIFIED (6) Headache Code(s): R51 - HEADACHE (7) Opioid dependence with withdrawal Code(s): F11.23 - OPIOID DEPENDENCE WITH WITHDRAWAL
[2017-08-23] MEDS: GABAPENTIN 300 MG CAPSULE (FP) PO SCH ×3 (06:06→22:03)
[2017-08-23] MEDS: CYCLOBENZAPRINE HCL 10 MG TABLET (FP) PO SCH ×3 (06:06→22:03)
[2017-08-23] MEDS: INSULIN SLIDING SCALE (NOVOLOG) 1 VIAL SQ SCH ×4 (06:08→22:05)
[2017-08-23] MEDS: INSULIN DETEMIR 100 UNITS/ML MDV SQ SCH ×2 (06:09→22:03)
[2017-08-23] MEDS ORDERED: PT OWN MED DRAWER 7, Y5N ONE ×2 (10:15→10:19)
[2017-08-23] MEDS: cloNIDine HCL 0.1 MG TABLET PO SCH ×2 (10:23→22:03)
[2017-08-23] MEDS: BUPRENORPHINE/NALOXONE 8 MG/2 MG FILM PACKET SL SCH (10:23)
[2017-08-23] MEDS: PANTOPRAZOLE 40 MG TABLET (FP) PO SCH (10:23)
[2017-08-23] MEDS: SUCRALFATE 1 GM/10 ML UNIT DOSE CUPS PO SCH ×4 (10:23→22:02)
[2017-08-23] MEDS: ENOXAPARIN NA (PORCINE) 40 MG/0.4 ML DISP.SYRIN SQ SCH (10:23)
[2017-08-23] MEDS: PRENATAL VITAMINS W/ FOLIC ACID TABLET (FP) PO SCH (10:24)
[2017-08-23] MEDS: NICOTINE 21 MG/24 HOURS TOPICAL PATCH TD SCH (10:24)
--- NOTE | 2017-08-23 11:07 | PN ---
Progress Note, Physician Chief Complaint: IVDA with left arm cellulitis and infected thrombophlebitis History of Present Illness: 21yo LHD male PMH type 1 DM, current IV heroin user, Hepatitis C presented with altered mental status and generalized weakness. No more complaints of pain in the left arm. routine wound care daily. - Current Medication List Current Medications: Active Medications Acetaminophen (Tylenol -) 650 mg PO Q6H PRN PRN Reason: FEVER Last Admin: 08/19/17 16:08 Dose: 650 mg Acetaminophen (Tylenol -) 650 mg PO Q4H PRN PRN Reason: pain Buprenorphine/Naloxone (Suboxone 8mg/2mg Sl Film -) 1 each SL DAILY [facility] Last Admin: 08/23/17 10:23 Dose: 1 each Clonidine (Catapres -) 0.1 mg PO BID [facility] Last Admin: 08/23/17 10:23 Dose: 0.1 mg Cyclobenzaprine HCl (Flexeril -) 10 mg PO TID [facility] Last Admin: 08/23/17 06:06 Dose: 10 mg Enoxaparin Sodium (Lovenox -) 40 mg SQ DAILY [facility] Last Admin: 08/23/17 10:23 Dose: 40 mg Gabapentin (Neurontin -) 300 mg PO TID [facility] Last Admin: 08/23/17 06:06 Dose: 300 mg TELAVANCIN HCL 700 mg/ (Dextrose) 292 mls @ 292 mls/hr IVPB DAILY [facility] Last Admin: 08/22/17 09:33 Dose: 292 mls/hr Insulin Aspart (Novolog Vial Sliding Scale -) 1 vial SQ ACHS [facility] PRN Reason: Protocol Last Admin: 08/23/17 06:08 Dose: 10 units Insulin Detemir (Levemir Vial) 15 units SQ HS [facility] Last Admin: 08/22/17 21:30 Dose: 15 units Insulin Detemir (Levemir Vial) 30 units SQ AM [facility] Last Admin: 08/23/17 06:09 Dose: 30 units Nicotine (Nicoderm Patch -) 21 mg TD DAILY [facility] Last Admin: 08/23/17 10:24 Dose: 21 mg Nicotine Polacrilex (Nicorette Gum -) 2 mg BUC Q2H PRN PRN Reason: NICOTINE REPLACEMENT RX Pantoprazole Sodium (Protonix -) 40 mg PO DAILY [facility] Last Admin: 08/23/17 10:23 Dose: 40 mg Multivit/Folic Acid/Iron ( Vitamins (Sjr) -) 1 tab PO DAILY [facility] Last Admin: 08/23/17 10:24 Dose: 1 tab Sucralfate (Carafate Oral Suspension -) 1 gm PO QID [facility] Last Admin: 08/23/17 10:23 Dose: 1 gm Thiamine HCl (Vitamin B1 -) 100 mg PO HS [facility] Last Admin: 08/22/17 21:29 Dose: 100 mg Zolpidem Tartrate (Ambien -) 10 mg PO HS PRN PRN Reason: INSOMNIA Last Admin: 08/22/17 21:29 Dose: 10 mg - Objective Vital Signs: Vital Signs Temperature 98.0 F 08/23/17 06:00 Pulse Rate 97 H 08/23/17 06:00 Respiratory Rate 20 08/23/17 06:00 Blood Pressure 112/72 08/23/17 06:00 O2 Sat by Pulse Oximetry (%) 94 L 08/22/17 22:00 Vital Signs Period Temp Pulse Resp BP Sys/Nolan Pulse Ox Last 24 Hr 97.8 F-99.1 F 97-110 20-20 112-145/71-88 94-94 Constitutional: Yes: No Distress, Calm Eyes: Yes: Conjunctiva Clear, EOM Intact HENT: Yes: Atraumatic, Normocephalic Neck: Yes: Supple, Trachea Midline Cardiovascular: Yes: Regular Rate and Rhythm, S1, S2 Respiratory: Yes: Regular, CTA Bilaterally Gastrointestinal: Yes: Normal Bowel Sounds, Soft. No: Tenderness ...Rectal Exam: Yes: Deferred Genitourinary: No: CVA Tenderness - Left, CVA Tenderness - Right Wound/Incision: Yes: Open to air (most proximal antecubital incison crusting, nearly closed, open to air.), Dressing Removed, Unapproximated (most distal remains open). No: Draining, Reddened, Bleeding Neurological: Yes: Alert, Oriented Psychiatric: Yes: Alert, Oriented Labs: CBC, BMP 08/19/17 07:05 08/23/17 07:02 INR, PTT INR 1.02 (0.82-1.09) 07/26/17 05:55 Fibrinogen 788.0 mg/dL (238-498) H 07/27/17 06:15 Problem List - Problems (1) MRSA (methicillin resistant Staphylococcus aureus) septicemia Assessment/Plan: 21 yo LHD male with Hepatitis C, DM type 1 in DKA with aggressive left forearm cellulitis, thrombophlebitis, and draining abscess at the site of injecting IV drugs. MRSA septicemia, secondary to injecting heroin with contaminated needles. s/p I&D and debridement of infected thrombophlebitis left forearm ~ 1month ago. WBC normal range, wounds healing well. Physical therapy noted full ROM at the elbow. Dressing Left forearm/ antecubital fossa daily Wound Measurement: distal wound [id number], granulation over soft tissue Dressing instructions: oil emulsion dressing, 2X2 gauze sponges, tape Can follow up after discharge 4 weeks Code(s): A41.02 - SEPSIS DUE TO METHICILLIN RESISTANT STAPHYLOCOCCUS AUREUS (2) Thrombophlebitis arm Code(s): I80.8 - PHLEBITIS AND THROMBOPHLEBITIS OF OTHER SITES (3) Abscess of forearm Code(s): L02.419 - CUTANEOUS ABSCESS OF LIMB, UNSPECIFIED (4) Opioid dependence with withdrawal Code(s): F11.23 - OPIOID DEPENDENCE WITH WITHDRAWAL (5) Diabetes Code(s): E11.9 - TYPE 2 DIABETES MELLITUS WITHOUT COMPLICATIONS Qualifiers: Diabetes mellitus type: type 1 Diabetes mellitus complication status: with ketoacidosis Diabetes mellitus complication detail: without coma Qualified Code(s): E10.10 - Type 1 diabetes mellitus with ketoacidosis without coma
[2017-08-23] MEDS: DEXTROSE 5% IVPB SCH (11:08)
[2017-08-23] MEDS: WATER IVPB SCH (11:08)
[2017-08-23] MEDS: TELAVANCIN HCL IVPB SCH (11:08)
[2017-08-23] MEDS ORDERED: INSULIN (NOVOLOG) ASPART 100 UNITS/ML 10ML VIAL ONE ×2 (12:00→12:07)
--- NOTE | 2017-08-23 21:24 | PN ---
Progress Note, Physician - Current Medication List Current Medications: Active Medications Acetaminophen (Tylenol -) 650 mg PO Q6H PRN PRN Reason: FEVER Last Admin: 08/19/17 16:08 Dose: 650 mg Acetaminophen (Tylenol -) 650 mg PO Q4H PRN PRN Reason: pain Buprenorphine/Naloxone (Suboxone 8mg/2mg Sl Film -) 1 each SL DAILY [facility] Last Admin: 08/23/17 10:23 Dose: 1 each Clonidine (Catapres -) 0.1 mg PO BID [facility] Last Admin: 08/23/17 10:23 Dose: 0.1 mg Cyclobenzaprine HCl (Flexeril -) 10 mg PO TID [facility] Last Admin: 08/23/17 15:07 Dose: 10 mg Enoxaparin Sodium (Lovenox -) 40 mg SQ DAILY [facility] Last Admin: 08/23/17 10:23 Dose: 40 mg Gabapentin (Neurontin -) 300 mg PO TID [facility] Last Admin: 08/23/17 15:07 Dose: 300 mg TELAVANCIN HCL 700 mg/ (Dextrose) 292 mls @ 292 mls/hr IVPB DAILY [facility] Last Admin: 08/23/17 11:08 Dose: 292 mls/hr Insulin Aspart (Novolog Vial Sliding Scale -) 1 vial SQ ACHS [facility] PRN Reason: Protocol Last Admin: 08/23/17 17:48 Dose: Not Given Insulin Detemir (Levemir Vial) 15 units SQ HS [facility] Last Admin: 08/22/17 21:30 Dose: 15 units Insulin Detemir (Levemir Vial) 30 units SQ AM [facility] Last Admin: 08/23/17 06:09 Dose: 30 units Nicotine (Nicoderm Patch -) 21 mg TD DAILY [facility] Last Admin: 08/23/17 10:24 Dose: 21 mg Nicotine Polacrilex (Nicorette Gum -) 2 mg BUC Q2H PRN PRN Reason: NICOTINE REPLACEMENT RX Pantoprazole Sodium (Protonix -) 40 mg PO DAILY [facility] Last Admin: 08/23/17 10:23 Dose: 40 mg Multivit/Folic Acid/Iron ( Vitamins (Sjr) -) 1 tab PO DAILY [facility] Last Admin: 08/23/17 10:24 Dose: 1 tab Sucralfate (Carafate Oral Suspension -) 1 gm PO QID [facility] Last Admin: 08/23/17 17:46 Dose: 1 gm Thiamine HCl (Vitamin B1 -) 100 mg PO HS [facility] Last Admin: 08/22/17 21:29 Dose: 100 mg Zolpidem Tartrate (Ambien -) 10 mg PO HS PRN PRN Reason: INSOMNIA Last Admin: 08/22/17 21:29 Dose: 10 mg - Objective Vital Signs: Vital Signs Temperature 98.6 F 08/23/17 18:48 Pulse Rate 100 H 08/23/17 18:48 Respiratory Rate 18 08/23/17 18:48 Blood Pressure 135/93 08/23/17 18:48 O2 Sat by Pulse Oximetry (%) 96 08/23/17 10:00 Labs: CBC, BMP 08/19/17 07:05 08/23/17 07:02 INR, PTT INR 1.02 (0.82-1.09) 07/26/17 05:55 Fibrinogen 788.0 mg/dL (238-498) H 07/27/17 06:15 Problem List - Problems (1) Pleural effusion Code(s): J90 - PLEURAL EFFUSION, NOT ELSEWHERE CLASSIFIED (2) Sepsis Code(s): A41.9 - SEPSIS, UNSPECIFIED ORGANISM (3) Diabetic ketoacidosis Code(s): E13.10 - OTH DIABETES MELLITUS WITH KETOACIDOSIS WITHOUT COMA (4) Thrombocytosis Code(s): D47.3 - ESSENTIAL (HEMORRHAGIC) THROMBOCYTHEMIA (5) Anemia Code(s): D64.9 - ANEMIA, UNSPECIFIED (6) Headache Code(s): R51 - HEADACHE (7) Opioid dependence with withdrawal Code(s): F11.23 - OPIOID DEPENDENCE WITH WITHDRAWAL
[2017-08-23] MEDS: THIAMINE HCL 100 MG TABLET (FP) PO SCH (22:03)
[2017-08-23] MEDS: ZOLPIDEM TARTRATE 5 MG TABLET PO PRN (22:11)
[2017-08-24] MEDS: CYCLOBENZAPRINE HCL 10 MG TABLET (FP) PO SCH ×3 (06:29→21:09)
[2017-08-24] MEDS: GABAPENTIN 300 MG CAPSULE (FP) PO SCH ×3 (06:29→21:09)
[2017-08-24] MEDS: INSULIN DETEMIR 100 UNITS/ML MDV SQ SCH ×2 (06:31→21:09)
[2017-08-24] MEDS: INSULIN SLIDING SCALE (NOVOLOG) 1 VIAL SQ SCH ×4 (06:32→21:10)
[2017-08-24] MEDS ORDERED: PT OWN MED DRAWER 7, Y5N ONE (10:19)
--- NOTE | 2017-08-24 10:38 | PN ---
Progress Note, Physician Chief Complaint: IVDA with left arm cellulitis and infected thrombophlebitis History of Present Illness: 21yo LHD male PMH type 1 DM, current IV heroin user, Hepatitis C presented with altered mental status and generalized weakness. No more complaints of pain in the left arm. routine wound care daily. - Current Medication List Current Medications: Active Medications Acetaminophen (Tylenol -) 650 mg PO Q6H PRN PRN Reason: FEVER Last Admin: 08/19/17 16:08 Dose: 650 mg Acetaminophen (Tylenol -) 650 mg PO Q4H PRN PRN Reason: pain Buprenorphine/Naloxone (Suboxone 8mg/2mg Sl Film -) 1 each SL DAILY [facility] Last Admin: 08/23/17 10:23 Dose: 1 each Clonidine (Catapres -) 0.1 mg PO BID [facility] Last Admin: 08/23/17 22:03 Dose: 0.1 mg Cyclobenzaprine HCl (Flexeril -) 10 mg PO TID [facility] Last Admin: 08/24/17 06:29 Dose: Not Given Enoxaparin Sodium (Lovenox -) 40 mg SQ DAILY [facility] Last Admin: 08/23/17 10:23 Dose: 40 mg Gabapentin (Neurontin -) 300 mg PO TID [facility] Last Admin: 08/24/17 06:29 Dose: Not Given TELAVANCIN HCL 700 mg/ (Dextrose) 292 mls @ 292 mls/hr IVPB DAILY [facility] Last Admin: 08/23/17 11:08 Dose: 292 mls/hr Insulin Aspart (Novolog Vial Sliding Scale -) 1 vial SQ ACHS [facility] PRN Reason: Protocol Last Admin: 08/24/17 06:32 Dose: 8 units Insulin Detemir (Levemir Vial) 15 units SQ HS [facility] Last Admin: 08/23/17 22:03 Dose: 15 units Insulin Detemir (Levemir Vial) 30 units SQ AM [facility] Last Admin: 08/24/17 06:31 Dose: 30 units Nicotine (Nicoderm Patch -) 21 mg TD DAILY [facility] Last Admin: 08/23/17 10:24 Dose: 21 mg Nicotine Polacrilex (Nicorette Gum -) 2 mg BUC Q2H PRN PRN Reason: NICOTINE REPLACEMENT RX Pantoprazole Sodium (Protonix -) 40 mg PO DAILY [facility] Last Admin: 08/23/17 10:23 Dose: 40 mg Multivit/Folic Acid/Iron ( Vitamins (Sjr) -) 1 tab PO DAILY [facility] Last Admin: 08/23/17 10:24 Dose: 1 tab Sucralfate (Carafate Oral Suspension -) 1 gm PO QID [facility] Last Admin: 08/23/17 22:02 Dose: 1 gm Thiamine HCl (Vitamin B1 -) 100 mg PO HS [facility] Last Admin: 08/23/17 22:03 Dose: 100 mg Zolpidem Tartrate (Ambien -) 10 mg PO HS PRN PRN Reason: INSOMNIA Last Admin: 08/23/17 22:11 Dose: 10 mg - Objective Vital Signs: Vital Signs Temperature 97.9 F 08/24/17 06:50 Pulse Rate 92 H 08/24/17 06:50 Respiratory Rate 18 08/24/17 06:50 Blood Pressure 110/76 08/24/17 06:50 O2 Sat by Pulse Oximetry (%) 96 08/23/17 22:00 Constitutional: Yes: No Distress, Calm Eyes: Yes: Conjunctiva Clear, EOM Intact HENT: Yes: Atraumatic, Normocephalic Neck: Yes: Supple, Trachea Midline Cardiovascular: Yes: Regular Rate and Rhythm, S1, S2 Respiratory: Yes: Regular, CTA Bilaterally Genitourinary: No: CVA Tenderness - Left, CVA Tenderness - Right Extremities: No: Cool, Cyanosis Integumentary: No: Jaundice, Rash Wound/Incision: Yes: Unapproximated Labs: CBC, BMP 08/19/17 07:05 08/23/17 07:02 INR, PTT INR 1.02 (0.82-1.09) 07/26/17 05:55 Fibrinogen 788.0 mg/dL (238-498) H 07/27/17 06:15 Problem List - Problems (1) MRSA (methicillin resistant Staphylococcus aureus) septicemia Assessment/Plan: 21 yo LHD male with Hepatitis C, DM type 1 in DKA with aggressive left forearm cellulitis, thrombophlebitis, and draining abscess at the site of injecting IV drugs. MRSA septicemia, secondary to injecting heroin with contaminated needles. s/p I&D and debridement of infected thrombophlebitis left forearm ~ 1month ago. WBC normal range, wounds healing well. Physical therapy noted full ROM at the elbow. Dressing Left forearm/ antecubital fossa daily Wound Measurement: distal wound [id number], granulation over soft tissue Dressing instructions: oil emulsion dressing, 2X2 gauze sponges, tape Can follow up after discharge 4 weeks Code(s): A41.02 - SEPSIS DUE TO METHICILLIN RESISTANT STAPHYLOCOCCUS AUREUS (2) Thrombophlebitis arm Code(s): I80.8 - PHLEBITIS AND THROMBOPHLEBITIS OF OTHER SITES (3) Abscess of forearm Code(s): L02.419 - CUTANEOUS ABSCESS OF LIMB, UNSPECIFIED (4) Opioid dependence with withdrawal Code(s): F11.23 - OPIOID DEPENDENCE WITH WITHDRAWAL (5) Diabetes Code(s): E11.9 - TYPE 2 DIABETES MELLITUS WITHOUT COMPLICATIONS Qualifiers: Diabetes mellitus type: type 1 Diabetes mellitus complication status: with ketoacidosis Diabetes mellitus complication detail: without coma Qualified Code(s): E10.10 - Type 1 diabetes mellitus with ketoacidosis without coma
[2017-08-24] MEDS: WATER IVPB SCH (10:47)
[2017-08-24] MEDS: DEXTROSE 5% IVPB SCH (10:47)
[2017-08-24] MEDS: TELAVANCIN HCL IVPB SCH (10:47)
[2017-08-24] MEDS: ENOXAPARIN NA (PORCINE) 40 MG/0.4 ML DISP.SYRIN SQ SCH (10:47)
[2017-08-24] MEDS: NICOTINE 21 MG/24 HOURS TOPICAL PATCH TD SCH (10:53)
[2017-08-24] MEDS: SUCRALFATE 1 GM/10 ML UNIT DOSE CUPS PO SCH ×4 (10:53→21:09)
[2017-08-24] MEDS: PRENATAL VITAMINS W/ FOLIC ACID TABLET (FP) PO SCH (10:54)
[2017-08-24] MEDS: PANTOPRAZOLE 40 MG TABLET (FP) PO SCH (10:54)
[2017-08-24] MEDS: BUPRENORPHINE/NALOXONE 8 MG/2 MG FILM PACKET SL SCH (10:55)
[2017-08-24] MEDS: cloNIDine HCL 0.1 MG TABLET PO SCH ×2 (10:57→21:09)
[2017-08-24] MEDS ORDERED: INSULIN (NOVOLOG) ASPART 100 UNITS/ML 10ML VIAL ONE (11:55)
[2017-08-24] MEDS: THIAMINE HCL 100 MG TABLET (FP) PO SCH (21:10)
[2017-08-24] MEDS: ZOLPIDEM TARTRATE 5 MG TABLET PO PRN (21:18)
--- NOTE | 2017-08-24 21:34 | PN ---
Progress Note, Physician - Current Medication List Current Medications: Active Medications Acetaminophen (Tylenol -) 650 mg PO Q6H PRN PRN Reason: FEVER Last Admin: 08/19/17 16:08 Dose: 650 mg Acetaminophen (Tylenol -) 650 mg PO Q4H PRN PRN Reason: pain Buprenorphine/Naloxone (Suboxone 8mg/2mg Sl Film -) 1 each SL DAILY [facility] Last Admin: 08/24/17 10:55 Dose: 1 each Clonidine (Catapres -) 0.1 mg PO BID [facility] Last Admin: 08/24/17 21:09 Dose: 0.1 mg Cyclobenzaprine HCl (Flexeril -) 10 mg PO TID [facility] Last Admin: 08/24/17 21:09 Dose: 10 mg Enoxaparin Sodium (Lovenox -) 40 mg SQ DAILY [facility] Last Admin: 08/24/17 10:47 Dose: 40 mg Gabapentin (Neurontin -) 300 mg PO TID [facility] Last Admin: 08/24/17 21:09 Dose: 300 mg TELAVANCIN HCL 700 mg/ (Dextrose) 292 mls @ 292 mls/hr IVPB DAILY [facility] Last Admin: 08/24/17 10:47 Dose: 292 mls/hr Insulin Aspart (Novolog Vial Sliding Scale -) 1 vial SQ ACHS [facility] PRN Reason: Protocol Last Admin: 08/24/17 21:10 Dose: 10 units Insulin Detemir (Levemir Vial) 15 units SQ HS [facility] Last Admin: 08/24/17 21:09 Dose: 15 units Insulin Detemir (Levemir Vial) 30 units SQ AM [facility] Last Admin: 08/24/17 06:31 Dose: 30 units Nicotine (Nicoderm Patch -) 21 mg TD DAILY [facility] Last Admin: 08/24/17 10:53 Dose: 21 mg Nicotine Polacrilex (Nicorette Gum -) 2 mg BUC Q2H PRN PRN Reason: NICOTINE REPLACEMENT RX Pantoprazole Sodium (Protonix -) 40 mg PO DAILY [facility] Last Admin: 08/24/17 10:54 Dose: 40 mg Multivit/Folic Acid/Iron ( Vitamins (Sjr) -) 1 tab PO DAILY [facility] Last Admin: 08/24/17 10:54 Dose: 1 tab Sucralfate (Carafate Oral Suspension -) 1 gm PO QID [facility] Last Admin: 08/24/17 21:09 Dose: 1 gm Thiamine HCl (Vitamin B1 -) 100 mg PO HS [facility] Last Admin: 08/24/17 21:10 Dose: 100 mg Zolpidem Tartrate (Ambien -) 10 mg PO HS PRN PRN Reason: INSOMNIA Last Admin: 08/24/17 21:18 Dose: 10 mg - Objective Vital Signs: Vital Signs Temperature 99.1 F 08/24/17 18:00 Pulse Rate 91 H 08/24/17 18:00 Respiratory Rate 18 08/24/17 20:44 Blood Pressure 134/90 08/24/17 18:00 O2 Sat by Pulse Oximetry (%) 97 08/24/17 20:44 Labs: CBC, BMP 08/19/17 07:05 08/23/17 07:02 INR, PTT INR 1.02 (0.82-1.09) 07/26/17 05:55 Fibrinogen 788.0 mg/dL (238-498) H 07/27/17 06:15 Problem List - Problems (1) Pleural effusion Code(s): J90 - PLEURAL EFFUSION, NOT ELSEWHERE CLASSIFIED (2) Sepsis Code(s): A41.9 - SEPSIS, UNSPECIFIED ORGANISM (3) Diabetic ketoacidosis Code(s): E13.10 - OTH DIABETES MELLITUS WITH KETOACIDOSIS WITHOUT COMA (4) Thrombocytosis Code(s): D47.3 - ESSENTIAL (HEMORRHAGIC) THROMBOCYTHEMIA (5) Anemia Code(s): D64.9 - ANEMIA, UNSPECIFIED (6) Headache Code(s): R51 - HEADACHE (7) Opioid dependence with withdrawal Code(s): F11.23 - OPIOID DEPENDENCE WITH WITHDRAWAL
[2017-08-25] MEDS: GABAPENTIN 300 MG CAPSULE (FP) PO SCH ×3 (06:43→21:57)
[2017-08-25] MEDS: CYCLOBENZAPRINE HCL 10 MG TABLET (FP) PO SCH ×3 (06:43→21:57)
[2017-08-25] MEDS: INSULIN SLIDING SCALE (NOVOLOG) 1 VIAL SQ SCH ×4 (06:44→21:58)
[2017-08-25] MEDS: INSULIN DETEMIR 100 UNITS/ML MDV SQ SCH ×2 (06:44→21:57)
[2017-08-25] MEDS: PRENATAL VITAMINS W/ FOLIC ACID TABLET (FP) PO SCH (10:13)
[2017-08-25] MEDS: SUCRALFATE 1 GM/10 ML UNIT DOSE CUPS PO SCH ×4 (10:13→21:57)
[2017-08-25] MEDS: cloNIDine HCL 0.1 MG TABLET PO SCH ×2 (10:13→21:57)
[2017-08-25] MEDS: NICOTINE 21 MG/24 HOURS TOPICAL PATCH TD SCH (10:14)
[2017-08-25] MEDS: PANTOPRAZOLE 40 MG TABLET (FP) PO SCH (10:14)
[2017-08-25] MEDS: ENOXAPARIN NA (PORCINE) 40 MG/0.4 ML DISP.SYRIN SQ SCH (10:14)
[2017-08-25] MEDS: BUPRENORPHINE/NALOXONE 8 MG/2 MG FILM PACKET SL SCH (10:14)
[2017-08-25] MEDS ORDERED: INSULIN (NOVOLOG) ASPART 100 UNITS/ML 10ML VIAL ONE (12:12)
[2017-08-25] MEDS: TELAVANCIN HCL IVPB SCH (12:42)
[2017-08-25] MEDS: WATER IVPB SCH (12:42)
[2017-08-25] MEDS: DEXTROSE 5% IVPB SCH (12:42)
[2017-08-25] MEDS ORDERED: PT OWN MED DRAWER 7, Y5N ONE (12:46)
[2017-08-25] MEDS: THIAMINE HCL 100 MG TABLET (FP) PO SCH (21:57)
--- NOTE | 2017-08-25 22:18 | PN ---
Progress Note, Physician - Current Medication List Current Medications: Active Medications Acetaminophen (Tylenol -) 650 mg PO Q6H PRN PRN Reason: FEVER Last Admin: 08/19/17 16:08 Dose: 650 mg Acetaminophen (Tylenol -) 650 mg PO Q4H PRN PRN Reason: pain Clonidine (Catapres -) 0.1 mg PO BID [facility] Last Admin: 08/25/17 21:57 Dose: 0.1 mg Cyclobenzaprine HCl (Flexeril -) 10 mg PO TID [facility] Last Admin: 08/25/17 21:57 Dose: 10 mg Gabapentin (Neurontin -) 300 mg PO TID [facility] Last Admin: 08/25/17 21:57 Dose: 300 mg TELAVANCIN HCL 700 mg/ (Dextrose) 292 mls @ 292 mls/hr IVPB DAILY [facility] Last Admin: 08/25/17 12:42 Dose: 292 mls/hr Insulin Aspart (Novolog Vial Sliding Scale -) 1 vial SQ ACHS [facility] PRN Reason: Protocol Last Admin: 08/25/17 21:58 Dose: 8 units Insulin Detemir (Levemir Vial) 15 units SQ HS [facility] Last Admin: 08/25/17 21:57 Dose: 15 units Insulin Detemir (Levemir Vial) 30 units SQ AM [facility] Last Admin: 08/25/17 06:44 Dose: 30 units Nicotine (Nicoderm Patch -) 21 mg TD DAILY [facility] Last Admin: 08/25/17 10:14 Dose: 21 mg Nicotine Polacrilex (Nicorette Gum -) 2 mg BUC Q2H PRN PRN Reason: NICOTINE REPLACEMENT RX Pantoprazole Sodium (Protonix -) 40 mg PO DAILY [facility] Last Admin: 08/25/17 10:14 Dose: 40 mg Multivit/Folic Acid/Iron ( Vitamins (Sjr) -) 1 tab PO DAILY [facility] Last Admin: 08/25/17 10:13 Dose: 1 tab Sucralfate (Carafate Oral Suspension -) 1 gm PO QID [facility] Last Admin: 08/25/17 21:57 Dose: 1 gm Thiamine HCl (Vitamin B1 -) 100 mg PO HS [facility] Last Admin: 08/25/17 21:57 Dose: 100 mg - Objective Vital Signs: Vital Signs Temperature 97.8 F 08/25/17 19:37 Pulse Rate 94 H 08/25/17 19:37 Respiratory Rate 20 03/17/18 19:37 Blood Pressure 137/81 08/25/17 19:37 O2 Sat by Pulse Oximetry (%) 98 08/25/17 10:00 Labs: CBC, BMP 08/19/17 07:05 08/23/17 07:02 INR, PTT INR 1.02 (0.82-1.09) 07/26/17 05:55 Fibrinogen 788.0 mg/dL (238-498) H 07/27/17 06:15 Problem List - Problems (1) Pleural effusion Code(s): J90 - PLEURAL EFFUSION, NOT ELSEWHERE CLASSIFIED (2) Sepsis Code(s): A41.9 - SEPSIS, UNSPECIFIED ORGANISM (3) Diabetic ketoacidosis Code(s): E13.10 - OTH DIABETES MELLITUS WITH KETOACIDOSIS WITHOUT COMA (4) Thrombocytosis Code(s): D47.3 - ESSENTIAL (HEMORRHAGIC) THROMBOCYTHEMIA (5) Anemia Code(s): D64.9 - ANEMIA, UNSPECIFIED (6) Headache Code(s): R51 - HEADACHE (7) Opioid dependence with withdrawal Code(s): F11.23 - OPIOID DEPENDENCE WITH WITHDRAWAL
[2017-08-26] MEDS ORDERED: ZOLPIDEM TARTRATE 5 MG TABLET PO ONE
[2017-08-26] MEDS: GABAPENTIN 300 MG CAPSULE (FP) PO SCH ×3 (05:55→23:28)
[2017-08-26] MEDS: CYCLOBENZAPRINE HCL 10 MG TABLET (FP) PO SCH ×3 (05:55→23:28)
[2017-08-26] MEDS ORDERED: INSULIN (NOVOLOG) ASPART 100 UNITS/ML 10ML VIAL ONE ×2 (05:57→06:43)
[2017-08-26] MEDS: INSULIN SLIDING SCALE (NOVOLOG) 1 VIAL SQ SCH ×4 (06:01→23:27)
[2017-08-26] MEDS: INSULIN DETEMIR 100 UNITS/ML MDV SQ SCH ×2 (06:01→23:28)
[2017-08-26] MEDS ORDERED: PT OWN MED DRAWER 7, Y5N ONE (09:25)
[2017-08-26] MEDS: cloNIDine HCL 0.1 MG TABLET PO SCH ×2 (09:33→23:28)
[2017-08-26] MEDS: PRENATAL VITAMINS W/ FOLIC ACID TABLET (FP) PO SCH (09:33)
[2017-08-26] MEDS: PANTOPRAZOLE 40 MG TABLET (FP) PO SCH (09:33)
[2017-08-26] MEDS: SUCRALFATE 1 GM/10 ML UNIT DOSE CUPS PO SCH ×4 (09:33→23:28)
[2017-08-26] MEDS: NICOTINE 21 MG/24 HOURS TOPICAL PATCH TD SCH (09:33)
[2017-08-26] MEDS: WATER IVPB SCH (13:05)
[2017-08-26] MEDS: TELAVANCIN HCL IVPB SCH (13:05)
[2017-08-26] MEDS: DEXTROSE 5% IVPB SCH (13:05)
[2017-08-26] MEDS: THIAMINE HCL 100 MG TABLET (FP) PO SCH (23:28)
--- NOTE | 2017-08-26 23:40 | PN ---
Progress Note, Physician History of Present Illness: No new changes - Current Medication List Current Medications: Active Medications Acetaminophen (Tylenol -) 650 mg PO Q6H PRN PRN Reason: FEVER Last Admin: 08/19/17 16:08 Dose: 650 mg Acetaminophen (Tylenol -) 650 mg PO Q4H PRN PRN Reason: pain Clonidine (Catapres -) 0.1 mg PO BID [facility] Last Admin: 08/26/17 23:28 Dose: 0.1 mg Cyclobenzaprine HCl (Flexeril -) 10 mg PO TID [facility] Last Admin: 08/26/17 23:28 Dose: 10 mg Gabapentin (Neurontin -) 300 mg PO TID [facility] Last Admin: 08/26/17 23:28 Dose: 300 mg TELAVANCIN HCL 700 mg/ (Dextrose) 292 mls @ 292 mls/hr IVPB DAILY [facility] Last Admin: 08/26/17 13:05 Dose: 292 mls/hr Insulin Aspart (Novolog Vial Sliding Scale -) 1 vial SQ ACHS [facility] PRN Reason: Protocol Last Admin: 08/26/17 23:27 Dose: 12 units Insulin Detemir (Levemir Vial) 15 units SQ HS [facility] Last Admin: 08/26/17 23:28 Dose: 15 units Insulin Detemir (Levemir Vial) 30 units SQ AM [facility] Last Admin: 08/26/17 06:01 Dose: 30 units Nicotine (Nicoderm Patch -) 21 mg TD DAILY [facility] Last Admin: 08/26/17 09:33 Dose: 21 mg Nicotine Polacrilex (Nicorette Gum -) 2 mg BUC Q2H PRN PRN Reason: NICOTINE REPLACEMENT RX Pantoprazole Sodium (Protonix -) 40 mg PO DAILY [facility] Last Admin: 08/26/17 09:33 Dose: 40 mg Multivit/Folic Acid/Iron ( Vitamins (Sjr) -) 1 tab PO DAILY [facility] Last Admin: 08/26/17 09:33 Dose: 1 tab Sucralfate (Carafate Oral Suspension -) 1 gm PO QID [facility] Last Admin: 08/26/17 23:28 Dose: 1 gm Thiamine HCl (Vitamin B1 -) 100 mg PO HS [facility] Last Admin: 08/26/17 23:28 Dose: 100 mg - Objective Vital Signs: Vital Signs Temperature 98.2 F 08/26/17 17:25 Pulse Rate 104 H 08/26/17 17:25 Respiratory Rate 18 08/26/17 17:25 Blood Pressure 136/98 08/26/17 17:25 O2 Sat by Pulse Oximetry (%) 96 08/26/17 10:00 HENT: Yes: WNL Neck: Yes: WNL, Supple Cardiovascular: Yes: WNL, Regular Rate and Rhythm Respiratory: Yes: WNL, Regular, CTA Bilaterally Gastrointestinal: Yes: WNL, Normal Bowel Sounds, Soft Labs: CBC, BMP 08/19/17 07:05 08/23/17 07:02 INR, PTT INR 1.02 (0.82-1.09) 07/26/17 05:55 Fibrinogen 788.0 mg/dL (238-498) H 07/27/17 06:15 Problem List - Problems (1) Sepsis Assessment/Plan: S/P I&D/debridement/fasciotomy Lt forearm MRSA Bacteremia/supprative thrombophlebitis IV antibxs PEG was done and did not show any vegetations Code(s): A41.9 - SEPSIS, UNSPECIFIED ORGANISM (2) Pleural effusion Assessment/Plan: S/P chest tube placement and removal Code(s): J90 - PLEURAL EFFUSION, NOT ELSEWHERE CLASSIFIED (3) Diabetic ketoacidosis Code(s): E13.10 - OTH DIABETES MELLITUS WITH KETOACIDOSIS WITHOUT COMA (4) Thrombocytosis Code(s): D47.3 - ESSENTIAL (HEMORRHAGIC) THROMBOCYTHEMIA (5) Anemia Code(s): D64.9 - ANEMIA, UNSPECIFIED (6) Headache Code(s): R51 - HEADACHE (7) Opioid dependence with withdrawal Code(s): F11.23 - OPIOID DEPENDENCE WITH WITHDRAWAL
[2017-08-27] MEDS ORDERED: ZOLPIDEM TARTRATE 5 MG TABLET PO ONE (01:00)
[2017-08-27] MEDS: CYCLOBENZAPRINE HCL 10 MG TABLET (FP) PO SCH (05:56)
[2017-08-27] MEDS: GABAPENTIN 300 MG CAPSULE (FP) PO SCH ×3 (05:57→21:17)
[2017-08-27] MEDS ORDERED: INSULIN (NOVOLOG) ASPART 100 UNITS/ML 10ML VIAL ONE ×2 (05:59→11:37)
[2017-08-27] MEDS: INSULIN DETEMIR 100 UNITS/ML MDV SQ SCH ×2 (06:00→21:23)
[2017-08-27] MEDS: INSULIN SLIDING SCALE (NOVOLOG) 1 VIAL SQ SCH ×4 (06:00→21:24)
[2017-08-27] MEDS ORDERED: PT OWN MED DRAWER 7, Y5N ONE (09:46)
--- NOTE | 2017-08-27 09:46 | PN ---
S Progress Note Note: Patient is comfortable on current suboxone dose of 8mg daily, no cravings or desire to use Vital Signs - 8 hr 08/27/17 08/27/17 06:00 09:01 Temperature 98.0 F 97.9 F Pulse Rate 94 H 105 H Respiratory 18 18 Rate Blood Pressure 136/70 132/91 Laboratory Results - last 24 hr 08/26/17 08/26/17 08/26/17 12:05 17:19 23:24 POC Glucometer 219 223 527 08/27/17 05:48 POC Glucometer 456 hyperglycemia noted a/p: OUD, severe - cont MAT w suboxone 8mg daily while hospitalized, arrange for aftercare at [facility], please schedule appointment well ahead of time, I will give 1 month medication to hold until he can keep his appointment on discharge
[2017-08-27] MEDS ORDERED: cloNIDine HCL 0.1 MG TABLET PO PRN (09:47)
[2017-08-27] MEDS ORDERED: ZOLPIDEM TARTRATE 5 MG TABLET PO PRN (09:48)
--- NOTE | 2017-08-27 09:56 | PN ---
Progress Note, Physician Chief Complaint: IVDA with left arm cellulitis and infected thrombophlebitis History of Present Illness: 21yo LHD male PMH type 1 DM, current IV heroin user, Hepatitis C presented with altered mental status and generalized weakness. No more complaints of pain in the left arm. routine wound care daily. - Current Medication List Current Medications: Active Medications Acetaminophen (Tylenol -) 650 mg PO Q6H PRN PRN Reason: FEVER Last Admin: 08/19/17 16:08 Dose: 650 mg Acetaminophen (Tylenol -) 650 mg PO Q4H PRN PRN Reason: pain Buprenorphine/Naloxone (Suboxone 8mg/2mg Sl Film -) 1 each SL DAILY [facility] Clonidine (Catapres -) 0.1 mg PO BID PRN PRN Reason: WITHDRAWAL(CONT SUBST) Gabapentin (Neurontin -) 300 mg PO TID [facility] Last Admin: 08/27/17 05:57 Dose: Not Given TELAVANCIN HCL 700 mg/ (Dextrose) 292 mls @ 292 mls/hr IVPB DAILY [facility] Last Admin: 08/26/17 13:05 Dose: 292 mls/hr Insulin Aspart (Novolog Vial Sliding Scale -) 1 vial SQ ACHS [facility] PRN Reason: Protocol Last Admin: 08/27/17 06:00 Dose: 12 units Insulin Detemir (Levemir Vial) 15 units SQ HS [facility] Last Admin: 08/26/17 23:28 Dose: 15 units Insulin Detemir (Levemir Vial) 30 units SQ AM [facility] Last Admin: 08/27/17 06:00 Dose: 30 units Nicotine (Nicoderm Patch -) 21 mg TD DAILY [facility] Last Admin: 08/26/17 09:33 Dose: 21 mg Nicotine Polacrilex (Nicorette Gum -) 2 mg BUC Q2H PRN PRN Reason: NICOTINE REPLACEMENT RX Pantoprazole Sodium (Protonix -) 40 mg PO DAILY [facility] Last Admin: 08/26/17 09:33 Dose: 40 mg Multivit/Folic Acid/Iron ( Vitamins (Sjr) -) 1 tab PO DAILY [facility] Last Admin: 08/26/17 09:33 Dose: 1 tab Sucralfate (Carafate Oral Suspension -) 1 gm PO QID [facility] Last Admin: 08/26/17 23:28 Dose: 1 gm Thiamine HCl (Vitamin B1 -) 100 mg PO HS [facility] Last Admin: 08/26/17 23:28 Dose: 100 mg Zolpidem Tartrate (Ambien -) 10 mg PO HS PRN PRN Reason: INSOMNIA - Objective Vital Signs: Vital Signs Temperature 97.9 F 08/27/17 09:01 Pulse Rate 105 H 08/27/17 09:01 Respiratory Rate 18 08/27/17 09:01 Blood Pressure 132/91 08/27/17 09:01 O2 Sat by Pulse Oximetry (%) 97 08/26/17 22:00 Vital Signs Period Temp Pulse Resp BP Sys/Nolan Pulse Ox Last 24 Hr 97.9 F-98.5 F 94-105 18-18 114-142/70-98 97-97 Constitutional: Yes: No Distress, Calm, Poor Hygeine, Thin Eyes: Yes: Conjunctiva Clear, EOM Intact HENT: Yes: Atraumatic, Normocephalic Neck: Yes: Supple, Trachea Midline Cardiovascular: Yes: Regular Rate and Rhythm, S1, S2 Respiratory: Yes: Regular, CTA Bilaterally Gastrointestinal: Yes: Normal Bowel Sounds, Soft. No: Tenderness ...Rectal Exam: Yes: Deferred Genitourinary: No: CVA Tenderness - Left, CVA Tenderness - Right Extremities: No: Cool, Cyanosis Edema: No Peripheral Pulses WNL: Yes Wound/Incision: Yes: Open to air, Dressing Dry and Intact, Unapproximated. No: Draining, Reddened, Bleeding Neurological: Yes: Alert, Oriented Psychiatric: Yes: Alert, Oriented Labs: CBC, BMP 08/19/17 07:05 08/23/17 07:02 INR, PTT INR 1.02 (0.82-1.09) 07/26/17 05:55 Fibrinogen 788.0 mg/dL (238-498) H 07/27/17 06:15 Problem List - Problems (1) MRSA (methicillin resistant Staphylococcus aureus) septicemia Assessment/Plan: 21 yo LHD male with Hepatitis C, DM type 1 in DKA with aggressive left forearm cellulitis, thrombophlebitis, and draining abscess at the site of injecting IV drugs. MRSA septicemia, secondary to injecting heroin with contaminated needles. s/p I&D and debridement of infected thrombophlebitis left forearm ~ 1month ago. WBC normal range, wounds healing well. Physical therapy noted full ROM at the elbow. Dressing Left forearm/ antecubital fossa daily Wound Measurement: distal wound [id number], granulation over soft tissue Dressing instructions: oil emulsion dressing, 2X2 gauze sponges, tape Can follow up after discharge 4 weeks Code(s): A41.02 - SEPSIS DUE TO METHICILLIN RESISTANT STAPHYLOCOCCUS AUREUS (2) Thrombophlebitis arm Code(s): I80.8 - PHLEBITIS AND THROMBOPHLEBITIS OF OTHER SITES (3) Abscess of forearm Code(s): L02.419 - CUTANEOUS ABSCESS OF LIMB, UNSPECIFIED (4) Opioid dependence with withdrawal Code(s): F11.23 - OPIOID DEPENDENCE WITH WITHDRAWAL (5) Diabetes Code(s): E11.9 - TYPE 2 DIABETES MELLITUS WITHOUT COMPLICATIONS Qualifiers: Diabetes mellitus type: type 1 Diabetes mellitus complication status: with ketoacidosis Diabetes mellitus complication detail: without coma Qualified Code(s): E10.10 - Type 1 diabetes mellitus with ketoacidosis without coma
[2017-08-27] MEDS: SUCRALFATE 1 GM/10 ML UNIT DOSE CUPS PO SCH ×4 (09:58→21:17)
[2017-08-27] MEDS: PANTOPRAZOLE 40 MG TABLET (FP) PO SCH (09:58)
[2017-08-27] MEDS: NICOTINE 21 MG/24 HOURS TOPICAL PATCH TD SCH (09:59)
[2017-08-27] MEDS ORDERED: BUPRENORPHINE/NALOXONE 8 MG/2 MG FILM PACKET SL SCH (10:00)
[2017-08-27] MEDS: PRENATAL VITAMINS W/ FOLIC ACID TABLET (FP) PO SCH (10:01)
[2017-08-27] MEDS: WATER IVPB SCH (11:25)
[2017-08-27] MEDS: DEXTROSE 5% IVPB SCH (11:25)
[2017-08-27] MEDS: TELAVANCIN HCL IVPB SCH (11:25)
--- NOTE | 2017-08-27 20:08 | PN ---
Progress Note, Physician History of Present Illness: No new changes - Current Medication List Current Medications: Active Medications Acetaminophen (Tylenol -) 650 mg PO Q6H PRN PRN Reason: FEVER Last Admin: 08/19/17 16:08 Dose: 650 mg Acetaminophen (Tylenol -) 650 mg PO Q4H PRN PRN Reason: pain Buprenorphine/Naloxone (Suboxone 8mg/2mg Sl Film -) 1 each SL DAILY [facility] Last Admin: 08/27/17 09:59 Dose: 1 each Clonidine (Catapres -) 0.1 mg PO BID PRN PRN Reason: WITHDRAWAL(CONT SUBST) Gabapentin (Neurontin -) 300 mg PO TID [facility] Last Admin: 08/27/17 14:19 Dose: 300 mg TELAVANCIN HCL 700 mg/ (Dextrose) 292 mls @ 292 mls/hr IVPB DAILY [facility] Last Admin: 08/27/17 11:25 Dose: 292 mls/hr Insulin Aspart (Novolog Vial Sliding Scale -) 1 vial SQ ACHS [facility] PRN Reason: Protocol Last Admin: 08/27/17 17:45 Dose: Not Given Insulin Detemir (Levemir Vial) 15 units SQ HS [facility] Last Admin: 08/26/17 23:28 Dose: 15 units Insulin Detemir (Levemir Vial) 30 units SQ AM [facility] Last Admin: 08/27/17 06:00 Dose: 30 units Nicotine (Nicoderm Patch -) 21 mg TD DAILY [facility] Last Admin: 08/27/17 09:59 Dose: 21 mg Nicotine Polacrilex (Nicorette Gum -) 2 mg BUC Q2H PRN PRN Reason: NICOTINE REPLACEMENT RX Pantoprazole Sodium (Protonix -) 40 mg PO DAILY [facility] Last Admin: 08/27/17 09:58 Dose: 40 mg Multivit/Folic Acid/Iron ( Vitamins (Sjr) -) 1 tab PO DAILY [facility] Last Admin: 08/27/17 10:01 Dose: 1 tab Sucralfate (Carafate Oral Suspension -) 1 gm PO QID [facility] Last Admin: 08/27/17 18:00 Dose: 1 gm Thiamine HCl (Vitamin B1 -) 100 mg PO HS [facility] Last Admin: 08/26/17 23:28 Dose: 100 mg Zolpidem Tartrate (Ambien -) 10 mg PO HS PRN PRN Reason: INSOMNIA - Objective Vital Signs: Vital Signs Temperature 99.1 F 08/27/17 18:00 Pulse Rate 110 H 08/27/17 18:00 Respiratory Rate 18 08/27/17 18:00 Blood Pressure 147/92 08/27/17 18:00 O2 Sat by Pulse Oximetry (%) 97 08/27/17 10:00 Cardiovascular: Yes: WNL, Regular Rate and Rhythm Respiratory: Yes: WNL, Regular, CTA Bilaterally Gastrointestinal: Yes: WNL, Normal Bowel Sounds, Soft Labs: CBC, BMP 08/19/17 07:05 08/23/17 07:02 INR, PTT INR 1.02 (0.82-1.09) 07/26/17 05:55 Fibrinogen 788.0 mg/dL (238-498) H 07/27/17 06:15 Problem List - Problems (1) Sepsis Assessment/Plan: S/P I&D/debridement/fasciotomy Lt forearm MRSA Bacteremia/supprative thrombophlebitis IV antibxs PEG was done and did not show any vegetations Check labs in am Code(s): A41.9 - SEPSIS, UNSPECIFIED ORGANISM (2) Pleural effusion Assessment/Plan: S/P chest tube placement and removal Code(s): J90 - PLEURAL EFFUSION, NOT ELSEWHERE CLASSIFIED (3) Diabetic ketoacidosis Assessment/Plan: Cont levemir Cont sliding scale w/ coverge Ketoacidosis resolved Code(s): E13.10 - OTH DIABETES MELLITUS WITH KETOACIDOSIS WITHOUT COMA (4) Thrombocytosis Code(s): D47.3 - ESSENTIAL (HEMORRHAGIC) THROMBOCYTHEMIA (5) Anemia Code(s): D64.9 - ANEMIA, UNSPECIFIED (6) Headache Code(s): R51 - HEADACHE (7) Opioid dependence with withdrawal Code(s): F11.23 - OPIOID DEPENDENCE WITH WITHDRAWAL
[2017-08-27 20:34] VITALS: BP 150/96; PULSE 103; TEMP 98.6
[2017-08-27] MEDS: THIAMINE HCL 100 MG TABLET (FP) PO SCH (21:17)
--- NOTE | 2017-08-28 14:27 | DS ---
Physical Examination Vital Signs: Vital Signs Temperature 98.6 F 08/27/17 20:31 Pulse Rate 103 H 08/27/17 20:31 Respiratory Rate 18 08/27/17 20:31 Blood Pressure 150/96 08/27/17 20:31 O2 Sat by Pulse Oximetry (%) 97 08/27/17 10:00 Labs: CBC, BMP 08/19/17 07:05 08/23/17 07:02 Discharge Summary Reason For Visit: DIABETES MELLITUS WITH KETOACIDOSIS Condition: Improved - Instructions Diet, Activity, Other Instructions: Postoperative instructions: You had a Incision and Drainage of left antecubital fossa abscess on 07/26/[address] Sathya Beauchamp of [facility]. Activity: Resume your usual activities gradually, but no heavy exertion or lifting more than 10-15 pounds for 4-6 weeks. Follow-up: Call Dr. Beauchamp' office at [phone] only if you have any concerns about the healing of you left arm Referrals: Sathya Beauchamp MD [Staff Physician] - Disposition: AGAINST MEDICAL ADVICE - Home Medications Comprehensive Discharge Medication List: Ambulatory Orders Insulin Aspart [Novolog] 100 unit SQ ASDIR 07/01/15 Insulin Glargine,Hum.rec.anlog [Lantus Solostar PEN (NF)] 30 units SQ HS Buprenorphine/Naloxone [Suboxone 8Mg/2Mg Sl Film -] 1 each SL DAILY #7 film MDD 1 07/31/17
[2017-08-29] MEDS ORDERED: BUPRENORPHINE/NALOXONE 8 MG/2 MG FILM PACKET SL SCH (16:45)
== END 2017-08-27 21:38 | disposition left against medical advice (07) | DRG 710 ==
LOC: JER 22:44 → JERBED 07-24 02:28 → JICU 07-24 08:40 → J8W 07-30 17:50 → JICU 08-02 12:11 → J5S 08-10 20:40
PROVIDERS: ADMIT Internal Medicine; ATTEND Internal Medicine
PROC: 30233N1 Transfusion of Nonautologous Red Blood Cells into Peripheral Vein, Percutaneous Approach (ICD-10-PCS; 2017-07-23)
PROC: 02HV33Z Insertion of Infusion Device into Superior Vena Cava, Percutaneous Approach (ICD-10-PCS; 2017-07-24)
PROC: B548ZZA Ultrasonography of Superior Vena Cava, Guidance (ICD-10-PCS; 2017-07-24)
PROC: 0DB58ZX Excision of Esophagus, Via Natural or Artificial Opening Endoscopic, Diagnostic (ICD-10-PCS; 2017-07-26)
PROC: 0DB68ZX Excision of Stomach, Via Natural or Artificial Opening Endoscopic, Diagnostic (ICD-10-PCS; 2017-07-26)
PROC: 0J9F0ZX Drainage of Left Upper Arm Subcutaneous Tissue and Fascia, Open Approach, Diagnostic (ICD-10-PCS; principal; 2017-07-27)
PROC: 05BC0ZZ Excision of Left Basilic Vein, Open Approach (ICD-10-PCS; 2017-07-27)
PROC: 0W993ZX Drainage of Right Pleural Cavity, Percutaneous Approach, Diagnostic (ICD-10-PCS; 2017-07-31)
PROC: B24BZZ4 Ultrasonography of Heart with Aorta, Transesophageal (ICD-10-PCS; 2017-08-03)
PROC: 0W9B3ZX Drainage of Left Pleural Cavity, Percutaneous Approach, Diagnostic (ICD-10-PCS; 2017-08-04)
PROC: 0B9P30Z Drainage of Left Pleura with Drainage Device, Percutaneous Approach (ICD-10-PCS; 2017-08-09)
PROC: 0WPBX0Z Removal of Drainage Device from Left Pleural Cavity, External Approach (ICD-10-PCS; 2017-08-17)
DX: A41.02 Sepsis due to Methicillin resistant Staphylococcus aureus (principal); J96.01 Acute respiratory failure with hypoxia; R65.21 Severe sepsis with septic shock; I76 Septic arterial embolism; J85.0 Gangrene and necrosis of lung; N17.9 Acute kidney failure, unspecified; E10.10 Type 1 diabetes mellitus with ketoacidosis without coma; D61.818 Other pancytopenia; J90 Pleural effusion, not elsewhere classified; E83.42 Hypomagnesemia; I80.8 Phlebitis and thrombophlebitis of other sites; E83.39 Other disorders of phosphorus metabolism; E87.2 Acidosis; I24.8 Other forms of acute ischemic heart disease; E87.8 Other disorders of electrolyte and fluid balance, not elsewhere classified; R64 Cachexia; D62 Acute posthemorrhagic anemia; B37.81 Candidal esophagitis; K76.89 Other specified diseases of liver; R16.0 Hepatomegaly, not elsewhere classified; Q21.1 Atrial septal defect; E88.09 Other disorders of plasma-protein metabolism, not elsewhere classified; F14.20 Cocaine dependence, uncomplicated; F11.23 Opioid dependence with withdrawal; Z79.4 Long term (current) use of insulin; E87.6 Hypokalemia; L03.114 Cellulitis of left upper limb; E86.0 Dehydration; F12.10 Cannabis abuse, uncomplicated; R74.0 Nonspecific elevation of levels of transaminase and lactic acid dehydrogenase [LDH]; F17.210 Nicotine dependence, cigarettes, uncomplicated; R91.1 Solitary pulmonary nodule; Z91.14 Patient's other noncompliance with medication regimen; D47.3 Essential (hemorrhagic) thrombocythemia; D64.9 Anemia, unspecified; B18.2 Chronic viral hepatitis C; R00.0 Tachycardia, unspecified; K29.60 Other gastritis without bleeding
CPT/HCPCS: 32557; 36415; 36430; 36511; 36600; 70450-TC; 71045-TC-FY; 71250-TC; 71260-TC; 72132-TC; 74177-TC; 76705-TC; 76882; 76942; 76998-TC; 80048; 80053; 80076; 80307; 81003; 81015; 82009; 82042; 82150; 82272; 82550; 82553; 82728; 82803; 82945; 82947; 82962; 83010; 83036; 83540; 83550; 83605; 83615; 83735; 83880; 83986; 84100; 84157; 84443; 84466; 84484; 85025; 85027; 85032; 85044; 85379; 85384; 85610; 85651; 85730; 86140; 86355; 86359; 86360; 86704; 86706; 86708; 86803; 86850; 86900; 86901; 86922; 87040; 87070; 87075; 87086; 87102; 87116; 87186; 87205; 87206; 87210; 87340; 87389; 87522; 88108; 88300-TC; 88305-TC; 89051; 93005; 93010; 93306-TC; 93312; 93325; 93970-TC; 97116-GP; 97161-GP; 99282-25; C1729; C1769; G0480; J0131; J0735; J0878; J1644; J3095; J3480; J7030; P9038; P9058

== ENCOUNTER 2017-09-20 20:31 | Inpatient (IN) | payer OTHER ==
[2017-09-20 20:41] VITALS: BMI 23.5
--- NOTE | 2017-09-20 21:09 | PDOC ---
History of Present Illness - General History Source: Patient Exam Limitations: No Limitations - History of Present Illness Initial Comments: 09/20/17 21:42 The patient is a 21 year old male, with a significant PMH of MRSA, Hep C, endocarditis, substance abuse (Methamphetamine, Opioid, Heroin, and Methadone) IDDM (Type 1), presents to the ED after calling 911 because he was having difficulty breathing. The patient reports he had a 100.8 fever yesterday, he states he was diagnosed with pneumonia the 22 of last month. The patient was prescribed antibiotics but with 11 days to finish he signed out against medical care. The patient reports hes blood sugar is 190. The patient reports symptoms of chills, coughing, rhinorrhea, abdominal pain, mild dysuria, onset of diarrhea (loser consistency feces) and SOB. The patient denies headache and dizziness. Denies nausea, vomit, constipation. Denies frequency, urgency and hematuria. Allergies: Fish Past surgical history: Left arm: removal of abscess. Social history: The patient reports he uses Heroin intravenously on the right arm 4 days ago. The patient reports he used Cocaine last week. Patient reports history of smoking, but denies the use of alcohol. 09/20/17 23:06 <Annie Leary - Last Filed: 09/20/17 23:06> <Loretta Anderson - Last Filed: 09/20/17 23:28> - General Chief Complaint: Chest Pain Stated Complaint: CHEST PAIN Time Seen by Provider: 09/20/17 20:39 Past History <Annie Leary - Last Filed: 09/20/17 23:06> - Past Medical History Anemia: No Asthma: No Cancer: No Cardiac Disorders: No CVA: No COPD: No CHF: No Diabetes: Yes (Type 1 on Humolog and Lantus) GI Disorders: No Disorders: No HTN: No Hypercholesterolemia: No Kidney Stones: No Liver Disease: No Seizures: No - Surgical History Abdominal Surgery: No Appendectomy: No Cardiac Surgery: No Cholecystectomy: No Lung Surgery: No Neurologic Surgery: No Orthopedic Surgery: No - Reproductive History Testicular Surgery: No - Immunization History Immunization Up to Date: Yes - Suicide/Smoking/Psychosocial Hx Smoking History: Never smoked Have you smoked in the past 12 months: No Number of Cigarettes Smoked Daily: 20 Information on smoking cessation initiated: No 'Breaking Loose' booklet given: 07/03/17 Hx Alcohol Use: No Drug/Substance Use Hx: No Substance Use Type: None Hx Substance Use Treatment: Yes <Loretta Anderson - Last Filed: 09/20/17 23:28> - Past Medical History Allergies/Adverse Reactions: Allergies Allergy/AdvReac Type Severity Reaction Status Date / Time fish derived Allergy Verified 09/20/17 20:39 fish Allergy Uncoded 09/20/17 20:39 Home Medications: Ambulatory Orders Insulin Aspart [Novolog] 100 unit SQ ASDIR 07/01/15 Insulin Glargine,Hum.rec.anlog [Lantus Solostar PEN -] 30 units SQ HS 07/01/15 Buprenorphine/Naloxone [Suboxone 8Mg/2Mg Sl Film -] 1 each SL DAILY #30 film MDD 1 08/29/17 Review of Systems - Review of Systems Able to Perform ROS?: Yes Comments:: 09/20/17 21:41 GENERAL/CONSTITUTIONAL: (+) chills and 100.8 fever. No weakness. HEAD, EYES, EARS, NOSE AND THROAT: No change in vision. No ear pain or discharge. No sore throat. CARDIOVASCULAR: (+) SOB. No chest pain. RESPIRATORY: (+) cough, No wheezing, or hemoptysis. GASTROINTESTINAL: (+) diarrhea. No nausea, vomiting, or constipation. GENITOURINARY: (+) Mild dysuria,No frequency, or change in urination. MUSCULOSKELETAL: No joint or muscle swelling or pain. No neck or back pain. SKIN: No rash NEUROLOGIC: No headache, vertigo, loss of consciousness, or change in strength/ sensation. ENDOCRINE: No increased thirst. No abnormal weight change. HEMATOLOGIC/LYMPHATIC: No anemia, easy bleeding, or history of blood clots. ALLERGIC/IMMUNOLOGIC: No hives or skin allergy. <Annie Leary - Last Filed: 09/20/17 23:06> *Physical Exam - Vital Signs Last Vital Signs Temp Pulse Resp BP Pulse Ox 98.2 F 130 H 20 134/88 98 09/20/17 20:39 09/20/17 20:39 09/20/17 20:39 09/20/17 20:39 09/20/17 20:39 - Physical Exam Comments: 09/20/17 21:17 ADULT EXAM GENERAL: Awake, alert, and fully oriented, in no acute distress HEAD: No signs of trauma EYES: Pupils 3 equal round reactive bilaterally. PERRLA, EOMI, sclera anicteric , conjunctiva clear ENT: Nares clear. Auricles normal inspection, hearing grossly normal, nares patent, oropharynx clear without exudates. Moist mucosa NECK: Normal ROM, supple, no lymphadenopathy, JVD, or masses LUNGS: Breath sounds equal, clear to auscultation bilaterally. No wheezes, and no crackles HEART: (+) Tachycardia.normal S1 and S2, no murmurs, rubs or gallops ABDOMEN: (+) Mildly diffuse without rebound tenderness or guarding. Soft, nontender, normoactive bowel sounds. No masses EXTREMITIES: Normal range of motion, no edema. No clubbing or cyanosis. No cords, erythema, or tenderness NEUROLOGICAL: Cranial nerves II through XII grossly intact. Normal speech, normal gait SKIN: Warm, Dry, normal turgor, no rashes or lesions noted <Annie Leary - Last Filed: 09/20/17 23:06> - Vital Signs Last Vital Signs Temp Pulse Resp BP Pulse Ox 98.2 F 130 H 20 134/88 98 09/20/17 20:39 09/20/17 20:39 09/20/17 20:39 09/20/17 20:39 09/20/17 20:39 <Loretta Anderson - Last Filed: 09/20/17 23:28> Heart Score/ECG Review - ECG Intrepretation Comment:: 09/20/17 21:44 sinus tach at 132, lvh, nl axis, no acute st/t wave findings <Loretta Anderson - Last Filed: 09/20/17 23:28> ED Treatment Course - LABORATORY CBC & Chemistry Diagram: 09/20/17 21:32 09/20/17 21:22 <Annie Leary - Last Filed: 09/20/17 23:06> - LABORATORY CBC & Chemistry Diagram: 09/20/17 21:32 09/20/17 21:22 <Loretta Anderson - Last Filed: 09/20/17 23:28> Medical Decision Making - Medical Decision Making 09/20/17 21:44 a/p: 21yo DM male with fevers since yesterday -n/v/d -rhinorrhea, sore throat, cough -ama during last hospital admission for pna and sepsis and feels similar to when it started last time -labs, cultures, lactate, ivf hydration -hx of heroin and cocaine use this last week - injects -blood glucose at home was 190. -concern for infection in a dm -tachy with cp -will check dimer, cannot perc -will monitor and reassess 09/20/17 22:56 pt with +acetone pt with elevated glucose concerning for DKA also elevated dimer will order CTA noted mild elevated bun/cr - pt receiving IVF hydration - will continue IVF hydration, however need CTA chest 09/20/17 23:02 case discussed with Kym Molina from the ICU who will see the patient 09/20/17 23:09 case discussed with IM resident - pt does not have a PMD - accepted to [facility] service to the ICU broad spectrum abx ordered abg pending will hold off on insulin gtt at this time and repeat labs given patient received 2L IVF hydration will repeat lactate 09/20/17 23:[address] Goldberg - will place on tele given no gap, hold off on insulin gtt <Lorteta Anderson - Last Filed: 09/20/17 23:28> *DC/Admit/Observation/Transfer - Attestations Scribe Attestion: 09/20/17 21:42 Documentation prepared by Annie Laery, acting as medical billing representative for Loretta Anderson DO. <Annie Leary - Last Filed: 09/20/17 23:06> - Discharge Dispostion Admit: Yes - Attestations Physician Attestion: 09/20/17 23:04 I, Dr. Loretta Anderson DO, attest that this document has been prepared under my direction and personally reviewed by me in its entirety. I further attest, that it accurately reflects all work, treatment, procedures and medical decision -making performed by me. <Loretta Anderson - Last Filed: 09/20/17 23:28> Diagnosis at time of Disposition: Acute kidney injury, DKA, type 1, Methamphetamine dependence, Cocaine dependence, Intravenous drug abuse - Discharge Dispostion Condition at time of disposition: Critical
[2017-09-20] MEDS ORDERED: ONDANSETRON 4 MG/2 ML VIAL IVPUSH ONE (21:11)
[2017-09-20] MEDS ORDERED: SODIUM CHLORIDE 0.9% 1000 ML INFUS.BAG IV ONE ×4 (21:11→22:58)
[2017-09-20 21:41] LABS: EOS % 0.5 % (0-4.5); HEMATOCRIT 35.6 % (35.4-49); HEMOGLOBIN 12.2 GM/dL (11.7-16.9); LYMPH % 21.9 % (8-40); MCH 29.5 pg (25.7-33.7); MCHC 34.4 g/dl (32.0-35.9); MEAN CELL VOLUME 85.8 fl (80-96); MEAN PLT VOLUME 7.7 fl (7.5-11.1); MONO % 5.6 % (3.8-10.2); PLATELET COUNT 399 K/MM3 (134-434); RBC 4.14 M/mm3 (4.00-5.60); RDW 16.5 % (11.9-15.9); WHITE BLOOD COUNT 9.7 K/mm3 (4.0-10.0)
[2017-09-20] MEDS ORDERED: BUPRENORPHINE/NALOXONE 8 MG/2 MG FILM PACKET SL ONE (21:42)
[2017-09-20] MEDS ORDERED: ONDANSETRON 4 MG/2 ML VIAL ONE (21:47)
[2017-09-20 21:58] LABS: URINE APPEARANCE CLEAR; URINE BILIRUBIN NEGATIVE (<2.0 mg/dL); URINE BLOOD 1+ (NEGATIVE); URINE COLOR STRAW; URINE GLUCOSE (UA) 3+ (NEGATIVE); URINE KETONE TRACE (NEGATIVE); URINE LEUK ESTERASE NEGATIVE (NEGATIVE); URINE NITRITE NEGATIVE (NEGATIVE); URINE UROBILINOGEN NEGATIVE mg/dL (0.2-1.0)
[2017-09-20 22:02] LABS: URINE PROTEIN 2+ (NEGATIVE)
[2017-09-20 22:04] LABS: METHADONE, UR NEGATIVE ng/ml (CUTOFF=300); OPIATES, URI NEGATIVE ng/ml (CUTOFF=300); PHENCYCLIDINE,URINE NEGATIVE ng/ml (CUTOFF=25); URINE AMPHETAMINES POSITIVE ng/ml (CUTOFF=500); URINE BARBITURATES NEGATIVE ng/ml (CUTOFF=200); URINE BENZODIAZEPINES NEGATIVE ng/ml (CUTOFF=200)
[2017-09-20 22:05] LABS: ACTIVATED PTT 28.7 SECONDS (26.9-34.4); INR 0.9 (0.82-1.09); PROTHROMBIN TIME (PATIENT) 10.2 SEC (9.98-11.88)
[2017-09-20 22:05] LABS: COCAINE, UR POSITIVE ng/ml (CUTOFF=300)
[2017-09-20 22:12] LABS: EPI CELLS RARE /HPF (FEW)
[2017-09-20 22:23] LABS: ALBUMIN 3.1 g/dl (3.4-5.0); ANION GAP 14 (8-16); BLOOD UREA NITROGEN 29 mg/dL (7-18); CALCIUM 9.2 mg/dL (8.5-10.1); CHLORIDE 97 mmol/L (98-107); CO2 23 mmol/L (21-32); CREATININE 1.4 mg/dL (0.7-1.3); LIPASE 156 U/L (73-393); SGPT/ALT 86 U/L (12-78); SODIUM 134 mmol/L (136-145); TOT PROT 8.8 g/dl (6.4-8.2)
[2017-09-20 22:31] LABS: ALK PHOS 161 U/L (45-117); BILIRUBIN,TOTAL 0.5 mg/dL (0.2-1.0)
[2017-09-20 22:47] LABS: GLUCOSE,RANDOM 388 mg/dL (74-106); MAGNESIUM 1.9 mg/dL (1.8-2.4)
[2017-09-20 22:48] LABS: POTASSIUM 3.9 mmol/L (3.5-5.1); SGOT/AST 41 U/L (15-37)
[2017-09-20] MEDS ORDERED: POTASSIUM CHLORIDE TABS 20 MEQ TABLET.ER (FP) PO ONE ×2 (22:50→23:22)
[2017-09-20] MEDS ORDERED: VANCOMYCIN 1,000 MG in DEXTROSE 5%-WATER - 250 ML IVPB ONE (23:00)
[2017-09-20] MEDS ORDERED: PIPERACILLIN/TAZOB 4.5 GM/100 ML PREMIX BAG IVPB ONE (23:00)
[2017-09-20] MEDS ORDERED: INSULIN REGULAR 100 UNITS in SODIUM CHLORIDE 99 ML IVPB SCH (23:00)
[2017-09-20] MEDS ORDERED: PIPERACILLIN/TAZOB 4.5 GM 4.5 GM in DEXTROSE 5%-WATER 100 ML IVPB ONE (23:15)
[2017-09-20] MEDS ORDERED: PIPERACILLIN/TAZOB 4.5 GM 4.5 GM/100 ML BAG IVPB ONE (23:23)
[2017-09-20 23:38] LABS: ARTERIAL BLD GAS O2 SATURATION 94.9 % (90-98.9); ARTERIAL BLOOD GAS BASE EXCESS -2.5 meq/l (-2-2); ARTERIAL BLOOD GAS PCO2 44.1 mmHg (35-45); ARTERIAL BLOOD GAS PO2 78.6 mmHg (80-100); ARTERIAL BLOOD GAS pH 7.33 (7.35-7.45); CARBOXYHEMOGLOBIN 2.7 gm% (0.5-2.0)
--- NOTE | 2017-09-20 23:38 | PN ---
Teaching Attending Note Name of Resident: Arlette Baez ATTENDING PHYSICIAN STATEMENT I saw and evaluated the patient. I reviewed the resident's note and discussed the case with the resident. I agree with the resident's findings and plan as documented. 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 On evaluation patient found to have elevated glucose and lactic acid. OBJECTIVE: GEN: Dishelved, A&Ox3, in NAD, HEENT: NC, AT, PERRLA, EOMI, dry mucous membranes CVS: tachycardic, systolic murmur Lungs: CTA, no wheezing Abd: distended, soft, BS+, nontender. Ext: track crook, no edema, nl rom Neuro: lethargic, Cn2-12 intact CBCD WBC 9.7 K/mm3 (4.0-10.0) D 09/20/17 21:32 RBC 4.14 M/mm3 (4.00-5.60) D 09/20/17 21:32 Hgb 12.2 GM/dL (11.7-16.9) D 09/20/17 21:32 Hct 35.6 % (35.4-49) D 09/20/17 21:32 MCV 85.8 fl (80-96) 09/20/17 21:32 MCHC 34.4 g/dl (32.0-35.9) 09/20/17 21:32 RDW 16.5 % (11.9-15.9) H 09/20/17 21:32 Plt Count 399 K/MM3 (134-434) 09/20/17 21:32 MPV 7.7 fl (7.5-11.1) 09/20/17 21:32 CMP Sodium 134 mmol/L (136-145) L 09/20/17 21:22 Potassium 3.9 mmol/L (3.5-5.1) 09/20/17 21:22 Chloride 97 mmol/L (98-107) L 09/20/17 21:22 Carbon Dioxide 23 mmol/L (21-32) 09/20/17 21:22 Anion Gap 14 (8-16) 09/20/17 21:22 BUN 29 mg/dL (7-18) H 09/20/17 21:22 Creatinine 1.4 mg/dL (0.7-1.3) H D 09/20/17 21:22 Creat Clearance w eGFR > 60 (>60) 09/20/17 21:22 Calcium 9.2 mg/dL (8.5-10.1) 09/20/17 21:22 Total Bilirubin 0.5 mg/dL (0.2-1.0) D 09/20/17 21:22 AST 41 U/L (15-37) H D 09/20/17 21:22 ALT 86 U/L (12-78) H 09/20/17 21:22 Alkaline Phosphatase 161 U/L (45-117) H 09/20/17 21:22 Total Protein 8.8 g/dl (6.4-8.2) H 09/20/17 21: Albumin 3.1 g/dl (3.4-5.0) L D 09/20/17 21:22 ASSESSMENT AND PLAN: Hyperglycemia secondary to uncontrolled DM IVF Levemir 15U dose FS q4h and RISS Repeat BMP in am as patient has no Gap Reglan prn CRISTINA- repeat BMP in AM Lactic acidosis- IVF, ABG and trend lactic acid in 2 hours. Elevated Ddimer- CTA pending results. PE unlikely Elevated troponins, with no EKG changes which have trended down from last admission Endocarditis- contact isolation for h/o MRSA and follow blood cultures wont start antibiotics as laast documented cultures negative. Patient counselled on IVDA cessation- confirm suboxone treatment and resume
[2017-09-20 23:41] LABS: ALLENS TEST POSITIVE
[2017-09-20] MEDS ORDERED: VANCOMYCIN 1 GRAM (PRE-DOCKED) 1,000 MG/250 ML BAG IVPB ONE (23:58)
--- NOTE | 2017-09-21 00:02 | HP ---
CHIEF COMPLAINT: Chest pain PCP: None HISTORY OF PRESENT ILLNESS: 21yo M with PMHx of Type 1 DM, IVDA, Hep C who presented to the ER with 1 day of chest pain and shortness of breath. Pt was recently admitted for MRSA bacteremia secondary to infected arm abscess from IVDA. At the time, he was noted to have septic pulmonary emboli w/ pulmonary effusions. He was being treated w/ Telavancin with 11 days to finish but signed out AMA. This current chest pain is similar to prior admission. It is sharp, pleuritic, central. He had subjective fevers and was afraid he was developing a lung infection again. He reports essentially aguirre-positive ROS w/ chills, rhinorrhea, mild belly pain, dysuria, diarrhea. States he continues to be noncompliant w/ insulin. Last used IV heroin 4 days ago, currently on Suboxone. In the ER, he was hemodynamically stable and afebrile. EKG shows sinus tachy at 132bpm. Labs revealed hyperglycemia and lactic acidosis of 5.3 with trace urine/ serum ketones and a gap of 14. After two boluses of IVNS, his HR came down to 100s, gap closed to 12, and CRISTINA resolved. Lactic acid trending down. Recent Travel: Denies PAST MEDICAL HISTORY: MRSA bacteremia, Hep C, Substance abuse (Methamphetamine, Opioid, Heroin, and Methadone) IDDM (Type 1) PAST SURGICAL HISTORY: L arm abscess removal Social History: Smoking: Yes 1ppd Alcohol: Yes Drugs: Yes. Heroin and Cocaine Allergies: Fish derived Allergy (Verified 09/20/17 20:39) HOME MEDICATIONS: Home Medications Medication Instructions Recorded Insulin Aspart [Novolog] 100 unit SQ ASDIR 07/01/15 Insulin Glargine,Hum.rec.anlog 30 units SQ HS 07/01/15 [Lantus Solostar PEN -] Buprenorphine/Naloxone [Suboxone 1 each SL DAILY #30 film MDD 1 08/29/17 8Mg/2Mg Sl Film -] Zolpidem Tartrate [Ambien] 10 mg PO HS 09/20/17 REVIEW OF SYSTEMS CONSTITUTIONAL: +fevers, chills, generalized weakness. Absent: malaise, loss of appetite, weight change HEENT: +rhinorrhea, nasal congestion, throat pain.Absent: throat swelling, difficulty swallowing, mouth swelling, ear pain, eye pain, visual changes CARDIOVASCULAR: +chest pain. Absent: syncope, palpitations, irregular heart rate , lightheadedness, peripheral edema RESPIRATORY: +dry cough. Absent: shortness of breath, dyspnea with exertion, orthopnea, wheezing, stridor, hemoptysis GASTROINTESTINAL: +diarrhea, Absent: abdominal pain, abdominal distension, nausea, vomiting, constipation, melena, hematochezia GENITOURINARY: +dysuria. Absent: =frequency, urgency, hesitancy, hematuria, flank pain, genital pain MUSCULOSKELETAL: Absent: myalgia, arthralgia, joint swelling, back pain, neck pain SKIN: Absent: rash, itching, pallor HEMATOLOGIC/IMMUNOLOGIC: Absent: easy bleeding, easy bruising, lymphadenopathy, frequent infections ENDOCRINE:Absent: unexplained weight gain, unexplained weight loss, heat intolerance, cold intolerance NEUROLOGIC: Absent: headache, focal weakness or paresthesias, dizziness, unsteady gait, seizure, mental status changes, bladder or bowel incontinence PSYCHIATRIC: Absent: anxiety, depression, suicidal or homicidal ideation, hallucinations. PHYSICAL EXAMINATION Vital Signs Period Temp Pulse Resp BP Sys/Nolan Pulse Ox Last 24 Hr 98.2 F 101-130 19-20 129-134/84-88 98-99 GEN: AAOx3, NAD, Lying comfortably, not ill appearing, smiling HEENT: PERRLA, EOMi CV: S1, S2, RRR, no murmurs LUNG: CTABL ABD: Soft, NT, ND, normoactive BS MSK: No edema, no erythema NEURO: CN 2-12 intact ASSESSMENT/PLAN: 21yo M with PMHx of Type 1 DM, IVDA, Hep C who presented to the ER with 1 day of chest pain and shortness of breath, found to have hyperglycemia and lactic acidosis # Hyperglycemia -- Hx of DM1, noncompliant w/ insulin. Does not meet DKA criteria bertha. Mild gap and acidosis likely from lactic acid not ketoacidosis. Will cover w/ 6units short acting. BGM Q4. ISS. Half of long acting coverage given (15u). Diabetic diet. # Severe Lactic Acidosis -- Likely mix of Type B from hyperglycemia w/o proper insulin and dehydration. Patient does not appear to be septic. No clear source of infection as CTA on my read shows no acute lung pathology and is much improved from prior (still has residual septic emboli). However, will obtain blood cx, urine cx to r/o systemic infection. Prophylactic Vanc/Zosyn. ID consult. Continue IVF. Trend lactic acid. # CRISTINA -- Likely from dehydration, improved w/ IVF. # Tachycardia -- Pt is normally 90s-100s. Improved w/ IVF. CTA ordered in ER. No obvious PE on my read of CTA. Avoid beta blockers due to cocaine abuse # Heroin Abuse -- Pt is on Suboxone daily. Morning team to confirm w/ pharmacy. # FEN/PPx -- IVNS w/ 20meq K+ at 125cc/hr. Diabetic diet. SCDs # Dispo -- Admit to med/surg Case d/w Dr Goldberg & Dr Mccall Morning team to resume care in AM Arlette Baez MD - PGY1 Night [place] Visit type - Emergency Visit Emergency Visit: Yes ED Registration Date: 09/20/17 Care time: The patient presented to the Emergency Department on the above date and was hospitalized for further evaluation of their emergent condition. - New Patient This patient is new to me today: Yes Date on this admission: 09/21/17 - Critical Care Critical Care patient: No Hospitalist Screening - Colonoscopy Questionnaire Colonoscopy Questionnaire: Colonoscopy Questionnaire - Patient: 50 - 75 years old and never had a screening colonoscopy: Unknown History of colon or rectal polyps, or CA: Unknown History of IBD, Crohn's disease or UC: Unknown History of abdominal radiation therapy as a child: Unknown - Relative: 1 with colon or rectal CA, or polyps at age 60 or younger: Unknown Colon or rectal CA diagnosed at age 45 or younger: Unknown Multiple relatives with colon or rectal CA: Unknown - Outcome: Screening Result: Negative Screen
[2017-09-21 00:04] LABS: ALBUMIN 2.9 g/dl (3.4-5.0); ALK PHOS 131 U/L (45-117); ANION GAP 12 (8-16); BILIRUBIN,TOTAL 0.5 mg/dL (0.2-1.0); BLOOD UREA NITROGEN 25 mg/dL (7-18); CALCIUM 8.5 mg/dL (8.5-10.1); CHLORIDE 102 mmol/L (98-107); CO2 23 mmol/L (21-32); CREATININE 1.2 mg/dL (0.7-1.3); GLUCOSE,RANDOM 282 mg/dL (74-106); POTASSIUM 4.1 mmol/L (3.5-5.1); SGOT/AST 29 U/L (15-37); SGPT/ALT 73 U/L (12-78); SODIUM 137 mmol/L (136-145); TOT PROT 7.9 g/dl (6.4-8.2)
[2017-09-21] MEDS ORDERED: INSULIN REGULAR HUMAN 100 UNITS/ML *VIAL SQ ONE (00:15)
[2017-09-21] MEDS ORDERED: SODIUM CHLORIDE 1,000 ML IV SCH (00:15)
[2017-09-21] MEDS ORDERED: SODIUM CHLORIDE 0.45%/POT 20 MEQ/1,000 ML INFUS.BAG IV SCH ×2 (00:15→05:27)
[2017-09-21] MEDS ORDERED: INSULIN REGULAR HUMAN 100 UNITS/ML *VIAL ONE (00:26)
--- NOTE | 2017-09-21 01:24 | MSN ---
Admitting History and Physical - Admission Chief Complaint: Problems breathing and fever History of Present Illness: 21 yr old male with history of IDDM, HepC, IV drug abuse, MRSA bacteremia presents to ED with difficultly breathing and fevers for the last 4 days. He was recently admitted at [facility] for MRSA bacteremia secondary to an arm abscess. He was also found to have septic lung emboli and b/l pulmonary effusions. He left AMA on 08/28, 11 days prior to finishing recommended antibiotic therapy. Today his shortness of breath is associated with pleuric chest pain and subjective fevers. The chest pain is similar to the pain at his previous admission and he was concerned that he "might have sepsis again". He admits to LYNCH, rhinorrhea, sore throat, non-productive cough, dysuria and diarrhea. He denies nausea or vomiting. He reports compliance with insulin. Rx: Suboxone Social Hx: Smokes, injected heroin 3 days ago ED course: 1. Patient VS WNL except for sinus tachycardia to 130 bpm 2. Labs showed hyperglycemia, lactic acidosis of 5.3, Anion gap of 14, and creatinine of 1.4 3. After 2 L of NS labs repeated; lactic acid decreased to 4.7, anion gap 12 , and HR decreased to 106 bpm History Source: Patient Limitations to Obtaining History: No Limitations - Past Medical History Pulmonary: Yes: Pneumonia Gastrointestinal: Yes: Other (Hep C) Infectious Disease: Yes: Other (HEP C) Psych: Yes: Addictions Endocrine: Yes: Diabetes Mellitus - Past Surgical History Additional Past Surgical History: Left arm abscess I and D - Smoking History Smoking history: Never smoked Have you smoked in the past 12 months: No Aproximately how many cigarettes per day: 20 - Alcohol/Substance Use Hx Alcohol Use: No History of Substance Use: reports: Cocaine, Heroin, Marijuana - Social History ADL: Independent Home Medications - Allergies Allergies/Adverse Reactions: Allergies Allergy/AdvReac Type Severity Reaction Status Date / Time fish derived Allergy Verified 09/20/17 20:39 fish Allergy Uncoded 09/20/17 20:39 - Home Medications Home Medications: Ambulatory Orders Insulin Aspart [Novolog] 100 unit SQ ASDIR 07/01/15 Insulin Glargine,Hum.rec.anlog [Lantus Solostar PEN -] 30 units SQ HS 07/01/15 Buprenorphine/Naloxone [Suboxone 8Mg/2Mg Sl Film -] 1 each SL DAILY #30 film MDD 1 08/29/17 Zolpidem Tartrate [Ambien] 10 mg PO HS 09/20/17 Family Disease History - Family Disease History Family Disease History: Other: Father (healthy), Mother (healthy), Brother (IDDM ) Review of Systems - Review of Systems Constitutional: reports: Chills, Fever Eyes: reports: No Symptoms HENT: reports: Throat Pain Cardiovascular: reports: Chest Pain, Shortness of Breath Respiratory: reports: Cough Gastrointestinal: reports: Abdominal Pain, Diarrhea Genitourinary: reports: Dysuria Neurological: reports: No Symptoms Physical Examination Vital Signs: Vital Signs Temperature 98.2 F 09/20/17 20:39 Pulse Rate 101 H 09/20/17 23:40 Respiratory Rate 19 09/20/17 23:40 Blood Pressure 129/84 09/20/17 23:40 O2 Sat by Pulse Oximetry (%) 99 09/20/17 23:40 Findings/Remarks: GENERAL: Relaxed young male in no apparent distress EYES: No conjuctival injection, sclera anicteric, EOMI MOUTH: Dry mucus membranes, no ulcers or lesions PHARYNX: Mild tonsilar erythema CARDIOVASCULAR: No JVD, tachycardiac, regular, S1/S2 without murmurs, rubs or gallops LUNGS: Clear to Auscultation b/l, no wheezes or crackles ABD: Normoactive bowel sounds, soft, non-tender EXTREMITIES: Healing scar on left forearm, 2+ peripheral pulses NEURO: CN II-XII grossly intact, normal speech Labs: CBC, BMP 09/20/17 21:32 09/20/17 23:27 Imaging - Results EKG: Image Reviewed (Sinus tachycardia) Assessment/Plan 21 yr old male with IDDM, IV drug abuse, and HepC presented to the ED with 4 days of difficulty breathing, chest pain, and fevers and was found to have lactic acidosis and hyperglycemia. #Lactic acidosis-Possibly secondary to hypovolemia. Lactic acid decreased after 2 L NS. Patient is not toxic appearing. No obvious source of infection. CT chest demostrated improvement from previous admission. Obtain blood and urine culture to look for potential source of infection. No obvious wounds. Zoysn and vancomycin given. Continue to trend lactic acid. #Hyperglycemia-Likely secondary to hypovolemia and non-compliance with insulin regimen. Criteria for DKA not met. Monitor BG. Cover with short acting insulin. Restart patient home med lantus tomorrow. #IV drug abuse-Patient on Suboxone. Confirm dosage. #CRISTINA-likely secondary to volume status as creatinine decreased after 2 L of fluid #Tachycardia-May be due to volume status as HR decreased from 130-106 after fluids. Patient's baseline HR is 90-100 bpm. #FEN -IVNS at 125 cc/hr with 20mEq K #Dispo -admit to med/surgx
[2017-09-21] MEDS ORDERED: HEMOQUE CONTROL SOLUTION ONE (05:41)
[2017-09-21] MEDS ORDERED: INSULIN DETEMIR 100 UNITS/ML MDV SQ ONE ×2 (05:54→05:59)
[2017-09-21] MEDS ORDERED: PIPERACILLIN/TAZOB 3.375 GM 3.375 GM in DEXTROSE 5%-WATER - 50 ML IVPB ONE (06:00)
[2017-09-21] MEDS ORDERED: VANCOMYCIN 1,000 MG in DEXTROSE 5%-WATER - 250 ML IVPB ONE (06:00)
[2017-09-21 06:03] LABS: BASO % 0.4 % (0-2.0); EOS % 1.3 % (0-4.5); HEMATOCRIT 28.8 % (35.4-49); HEMOGLOBIN 9.8 GM/dL (11.7-16.9); LYMPH % 40.1 % (8-40); MCH 29.8 pg (25.7-33.7); MEAN CELL VOLUME 87.8 fl (80-96); MEAN PLT VOLUME 7.7 fl (7.5-11.1); MONO % 6.6 % (3.8-10.2); NEUT % 51.6 % (42.8-82.8); PLATELET COUNT 308 K/MM3 (134-434); RBC 3.27 M/mm3 (4.00-5.60); RDW 16.6 % (11.9-15.9); WHITE BLOOD COUNT 7.6 K/mm3 (4.0-10.0)
[2017-09-21 06:28] LABS: ALBUMIN 2.6 g/dl (3.4-5.0); ALK PHOS 116 U/L (45-117); ANION GAP 9 (8-16); BILIRUBIN,TOTAL 0.4 mg/dL (0.2-1.0); BLOOD UREA NITROGEN 19 mg/dL (7-18); CALCIUM 7.9 mg/dL (8.5-10.1); CHLORIDE 109 mmol/L (98-107); CO2 21 mmol/L (21-32); GLUCOSE,RANDOM 259 mg/dL (74-106); MAGNESIUM 1.8 mg/dL (1.8-2.4); PHOSPHOROUS 2.9 mg/dL (2.5-4.9); POTASSIUM 4.9 mmol/L (3.5-5.1); SGOT/AST 26 U/L (15-37); SGPT/ALT 65 U/L (12-78); SODIUM 139 mmol/L (136-145)
[2017-09-21] MEDS: INSULIN SLIDING SCALE (NOVOLOG) 1 VIAL SQ SCH ×4 (07:24→22:18)
--- NOTE | 2017-09-21 08:48 | PN ---
Progress Note, Physician Chief Complaint: ID Sore throat couph fever chills and chest pains Again active IVDA - Current Medication List Current Medications: Active Medications Buprenorphine/Naloxone (Suboxone 8mg/2mg Sl Film -) 1 each SL DAILY ROBIN Sodium Chloride (Normal Saline -) 1,000 mls @ 150 mls/hr IV ASDIR ROBIN Insulin Aspart (Novolog Vial Sliding Scale -) 1 vial SQ ACHS ROBIN PRN Reason: Protocol Insulin Detemir (Levemir Vial) 30 units SQ HS ROBIN Zolpidem Tartrate (Ambien -) 10 mg PO HS PRN PRN Reason: INSOMNIA - Objective Vital Signs: Vital Signs Temperature 98.2 F 09/20/17 20:39 Pulse Rate 86 09/21/17 05:55 Respiratory Rate 17 09/21/17 05:55 Blood Pressure 116/78 09/21/17 05:55 O2 Sat by Pulse Oximetry (%) 98 09/21/17 05:55 Constitutional: Yes: No Distress, Thin HENT: No: Pharyngeal Erythema, Thrush Cardiovascular: Yes: Regular Rate and Rhythm, S1, S2 Respiratory: Yes: WNL, Regular, CTA Bilaterally Gastrointestinal: Yes: WNL, Normal Bowel Sounds, Soft, Tenderness, Other (LUQ tenderness) Edema: No Labs: CBC, BMP 09/21/17 05:21 09/21/17 05:21 INR, PTT INR 0.90 (0.82-1.09) 09/20/17 21:22 Problem List - Problems (1) DKA, type 1 Code(s): E10.10 - TYPE 1 DIABETES MELLITUS WITH KETOACIDOSIS WITHOUT COMA (2) Intravenous drug abuse Code(s): F19.10 - OTHER PSYCHOACTIVE SUBSTANCE ABUSE, UNCOMPLICATED (3) Gram-positive bacteremia Code(s): R78.81 - BACTEREMIA (4) Ischemic hepatitis Code(s): K75.9 - INFLAMMATORY LIVER DISEASE, UNSPECIFIED Assessment/Plan Microbiology 09/20/17 21:22 Nasopharyngeal Swab Influenza Types A,B Antigen (THEA) - Final 09/20/17 21:22 Nasopharyngeal Swab - Final Laboratory Tests 09/20/17 09/20/17 09/21/17 23:01 23:32 03:40 WBC Hgb Hct Plt Count ESR ABG pH 7.33 L ABG pCO2 at Pt Temp 44.1 ABG pO2 at Pt Temp 78.6 L D O2 Delivery Device Room air BUN Creatinine Creat Clearance w eGFR Lactic Acid 4.7 H* 3.4 H* Total Bilirubin AST ALT Alkaline Phosphatase Total Protein Albumin 09/21/17 09/21/17 09/21/17 05:21 05:21 05:21 WBC 7.6 Hgb 9.8 L D Hct 28.8 L D Plt Count 308 D ESR Pending ABG pH ABG pCO2 at Pt Temp ABG pO2 at Pt Temp O2 Delivery Device BUN 19 H D Creatinine 1.0 Creat Clearance w eGFR > 60 Lactic Acid Total Bilirubin 0.4 AST 26 ALT 65 Alkaline Phosphatase 116 Total Protein 7.0 Albumin 2.6 L Assessment PRolonged MRSA bacteremia ? recurrence embolic event LUQ pain ? splenic infarct Elevated lactic acid Plan Blood cultrures ESR CRP Bone scan to evaluated sternal lytic lesion CT abd ?infarct spleen Daptomycin and Cefepime empiric Bob SANDERSON
--- NOTE | 2017-09-21 09:20 | EKG ---
Test Reason : Blood Pressure : / mmHG Vent. Rate : 132 BPM Atrial Rate : 132 BPM P-R Int : 124 ms QRS Dur : 088 ms QT Int : 316 ms P-R-T Axes : 059 056 078 degrees QTc Int : 468 ms SINUS TACHYCARDIA POSSIBLE LEFT ATRIAL ENLARGEMENT LEFT VENTRICULAR HYPERTROPHY NONSPECIFIC T WAVE ABNORMALITY ABNORMAL ECG WHEN COMPARED WITH ECG OF 03-AUG-2017 10:19, NO SIGNIFICANT CHANGE WAS FOUND Confirmed by LASHAUN TOM MD ([id number]) on 09/21/2017 9:20:36 AM Referred By: Confirmed By:LASHAUN TOM MD
[2017-09-21 09:44] LABS: ANION GAP 7 (8-16); BLOOD UREA NITROGEN 19 mg/dL (7-18); CALCIUM 7.8 mg/dL (8.5-10.1); CHLORIDE 111 mmol/L (98-107); CO2 21 mmol/L (21-32); GLUCOSE,RANDOM 262 mg/dL (74-106); POTASSIUM 4.9 mmol/L (3.5-5.1); SODIUM 139 mmol/L (136-145)
[2017-09-21] MEDS: SODIUM CHLORIDE 1,000 ML IV SCH (10:04)
[2017-09-21] MEDS ORDERED: CEFEPIME 2 GM/100 ML BAG IVPB ONE (10:11)
[2017-09-21] MEDS: CEFEPIME 2 GM in DEXTROSE 5%-WATER - 100 ML IVPB SCH ×3 (10:22→20:10)
--- NOTE | 2017-09-21 11:19 | CONS ---
DATE OF CONSULTATION: HISTORY: The patient is a 21-year-old male insulin-dependent diabetic and intravenous drug abuser who is admitted with chief complaint of sore throat, fevers, cough, and chest discomfort for several days. 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 He had a recent July admission for sustained MRSA bacteremia with initial positive blood cultures on July 23 for MRSA and a Streptococcus acidominimus. This was followed by persistent MRSA bacteremia over the course of many days necessitating a change from vancomycin to a combination of daptomycin and Ceftaroline. The source of infection was a thrombophlebitis in the arm related to active intravenous drug abuse. He was taken to the operating room by Dr. Beauchamp and required incision and drainage of the infected thrombophlebitis. Additionally, he had pulmonary complications in the form of left pleural effusion moderate to large along with multiple pulmonary nodules thought on an embolic basis. A transesophageal echocardiogram did not show evidence of endocarditis, and a duplex study showed no evidence of large-vessel thrombophlebitis. The patient was ultimately switch to telavancin and Ceftaroline because of concern about the lack of pulmonary penetration of the daptomycin. His blood cultures cleared on August 01, and multiple blood cultures were then positive throughout the course of his admission. The plan was to send him to a facility to complete his course of telavancin. However, according to the notes, he left against medical advice and did not complete the treatment as had been recommended. He admits to active IVDA since he has been out though notes no evidence of abscesses on any of his arms or lower extremities. In the emergency room, he was noted to be afebrile. A CAT scan of the chest to evaluate his current chest pain showed no evidence of pulmonary embolism, scattered pulmonary nodules that were noted to have improved since August 07, bibasilar atelectasis with trace left pleural effusion, and lytic and sclerotic lesions involving the manubrium and proximal body of the sternum of uncertain etiology. The patient is admitted for further evaluation and treatment. PHYSICAL EXAMINATION: Vital Signs: His temperature is 97.8, pulse 88, blood pressure 138/97, respirations 18. HEENT: Reveals no conjunctival petechia. The pharynx has no erythema or exudate. Neck: Supple with no adenopathy. Lungs: Clear to percussion and auscultation. Heart: S1, S2. Regular rhythm without audible murmur. Abdomen: Soft with positive bowel sounds and tenderness on direct palpation noted in the left upper quadrant. No guarding or rebound. Extremities: Reveal no evidence of peripheral abscesses with cellulitis. LABORATORY DATA: The white count was 7.6, hemoglobin 9.8, and platelets of 303. The BUN was 19, creatinine 1, lactic acid initially 5.3 and last 2.7. Two sets of blood cultures dated September 20 currently pending and no growth. ASSESSMENT: A 21-year-old male with multiple medical problems including insulin-dependent diabetes and liver cirrhosis secondary to hepatitis B status post stormy clinical course with persistent methicillin-resistant Staphylococcus aureus bacteremia, suppurative thrombophlebitis of the left arm, and septic pulmonary emboli with pleural effusion who presents now with respiratory complaints and chest pain, though his CAT scan shows no evidence of pulmonary emboli. He does have what was described as a possible lytic lesion in the sternum noted incidentally on the chest CT. Additionally, on physical exam, he has left upper quadrant tenderness, and the possibility of a splenic infarct is considered. PLAN: The plan would be to treat him for sepsis particularly in view of his elevated lactic acid, although he had elevated lactic acid levels throughout his last admission as well, and this may be unrelated to infection and sepsis. I would give him a combination of daptomycin and cefepime empirically to cover him until his blood cultures are back. His urinalysis shows no evidence of urinary tract infection, and lastly, a CAT scan of the abdomen should be obtained to rule out a splenic infarct. Further recommendations to follow. ROMARIO CUETO M.D. [id number]
[2017-09-21] MEDS: DAPTOMYCIN IVPB SCH (11:59)
[2017-09-21] MEDS: SODIUM CHLORIDE IVPB SCH (11:59)
[2017-09-21] MEDS: BUPRENORPHINE/NALOXONE 8 MG/2 MG FILM PACKET SL SCH (11:59)
--- NOTE | 2017-09-21 16:08 | PN ---
Teaching Attending Note Name of Resident: Lizbeth Saldana ATTENDING PHYSICIAN STATEMENT I saw and evaluated the patient. I reviewed the resident's note and discussed the case with the resident. I agree with the resident's findings and plan as documented with exceptions below. SUBJECTIVE: Patient seen and examined. chest pain improved, no new fevers, cough, dyspnea, dizziness, abdominal or urinary symptoms. No new arm pain or swelling. OBJECTIVE: Vital Signs Period Temp Pulse Resp BP Sys/Nolan Pulse Ox Last 24 Hr 97.8 F-99.0 F 77-130 17-20 116-138/68-97 98-99 Intake & Output 09/18/17 09/19/17 09/20/17 09/21/17 23:59 23:59 23:59 23:59 Intake Total 1100 Balance 1100 Weight 150 lb 150 lb General: sitting in bed in no acute distress Chest: CTAB, no rales or wheezing abdomen: soft, NT throughout currently, ND, positive bowel sounds extremities: prior injection lon sites, 2 vertical incision scars left forearm , no active erythema/redness/swelling Home Medication List Medication Instructions Recorded Confirmed Type Insulin Aspart [Novolog] 100 unit SQ ASDIR 07/01/15 09/20/17 History Insulin Glargine,Hum.rec.anlog 30 units SQ HS 07/01/15 09/20/17 History [Lantus Solostar PEN -] Zolpidem Tartrate [Ambien] 10 mg PO HS 09/20/17 09/20/17 History Active Medications Generic Name Dose Route Start Last Admin Trade Name Freq PRN Reason Stop Dose Admin Buprenorphine/Naloxone 1 each 09/21/17 10:09/21/17 11:59 Suboxone 8mg/2mg Sl Film - SL 1 each DAILY ROBIN Administration Sodium Chloride 1,000 mls @ 150 mls/hr 09/21/17 06:45 09/21/17 10:04 Normal Saline - IV 150 mls/hr ASDIR ROBIN Administration Cefepime HCl 2 gm/ Dextrose 100 mls @ 200 mls/hr 09/21/17 10:00 09/21/17 17: 55 IVPB Not Given Q8H-IV ROBIN Daptomycin 560 mg/ Sodium 100 mls @ 200 mls/hr 09/21/17 10:00 09/21/17 11:59 Chloride IVPB 200 mls/hr DAILY ROBIN Administration Insulin Aspart 1 vial 09/21/17 07:00 09/21/17 17:51 Novolog Vial Sliding Scale - SQ Not Given ACHS [facility] Protocol Insulin Detemir 30 units 09/21/17 22:00 Levemir Vial SQ HS [facility] Zolpidem Tartrate 10 mg 09/21/17 00:38 Ambien - PO HS PRN INSOMNIA ASSESSMENT AND PLAN: 21 yom with PMhx of Type I DM, Hep C, IVDU (heroine/Cocaine) prior MRSA bacteremia with septic pulmonary emboli, left AMA without completing full antibiotic course, comes back with chest pain/shortness of breath. -Chest pain/Shortness of breath, CTA neg for concerns -Recent incompletely MRSA bacteremia with septic pulmonary emboli -Active IVDU -Type I DM with hyperglycemia -Severe Lactic Acidosis Plan: ID input noted, Cefepime/Vancomycin. Follow up blood cultures, 2D echo noted, worsening MR. PEG if blood cultures positive. Suboxone, substance abuse consult with Dr. Manuel. Earl, ISS, aggressive hydration, diabetic diet. Monitor lactate levels DVTPPx with lovenox Dispo pending clinical improvement.
--- NOTE | 2017-09-21 17:47 | PN ---
Physical Exam: SUBJECTIVE: Patient seen and examined in AM. CP has improved, mild sore throat. No fever, chills, sob, or abdominal pain. OBJECTIVE: Vital Signs Period Temp Pulse Resp BP Sys/Nolan Pulse Ox Last 24 Hr 97.8 F-99.0 F 77-130 17-20 116-138/68-97 98-99 General: thin, young man, lying in bed, nad HEENT: sclera anicteric, no oropharyngeal exudates or erythema, conjuctiva clear HEART: RRR, normal s1/s2, no m/r/g LUNGS: CTAB, no wheezes or rales appreciated ABDOMINAL: soft, non-distended, mild LUQ tenderness, no rebound or guarding Extr: UE with scattered injection site crook, + tattoos CBC, BMP 09/21/17 05:21 09/21/17 05:21 Hepatic Panel Total Bilirubin 0.4 mg/dL (0.2-1.0) 09/21/17 05:21 AST 26 U/L (15-37) 09/21/17 05:21 ALT 65 U/L (12-78) 09/21/17 05:21 Alkaline Phosphatase 116 U/L (45-117) 09/21/17 05:21 Albumin 2.6 g/dl (3.4-5.0) L 09/21/17 05:21 Urine Color Straw 09/20/17 21:45 Urine Appearance Clear 09/20/17 21:45 Urine pH 6.0 (5.0-8.0) 09/20/17 21:45 Ur Specific [place] 1.027 (1.001-1.035) 09/20/17 21:45 Urine Protein 2+ (NEGATIVE) H 09/20/17 21:45 Urine Glucose (UA) 3+ (NEGATIVE) H 09/20/17 21:45 Urine Ketones Trace (NEGATIVE) H 09/20/17 21:45 Urine Blood 1+ (NEGATIVE) H 09/20/17 21:45 Urine Nitrite Negative (NEGATIVE) 09/20/17 21:45 Urine Bilirubin Negative (<2.0 mg/dL) 09/20/17 21:45 Ur Leukocyte Esterase Negative (NEGATIVE) 09/20/17 21:45 Ur Epithelial Cells Rare /HPF (FEW) 09/20/17 21:45 Microbiology 09/20/17 21:22 Nasopharyngeal Swab Influenza Types A,B Antigen (THEA) - Final 09/20/17 21:22 Nasopharyngeal Swab - Final Active Medications Buprenorphine/Naloxone (Suboxone 8mg/2mg Sl Film -) 1 each SL DAILY [facility] Last Admin: 09/21/17 11:59 Dose: 1 each Sodium Chloride (Normal Saline -) 1,000 mls @ 150 mls/hr IV ASDIR ROBIN Last Admin: 09/21/17 10:04 Dose: 150 mls/hr Cefepime HCl 2 gm/ Dextrose 100 mls @ 200 mls/hr IVPB Q8H-IV ROBIN Last Admin: 09/21/17 10:22 Dose: 200 mls/hr Daptomycin 560 mg/ Sodium (Chloride) 100 mls @ 200 mls/hr IVPB DAILY ROBIN Last Admin: 09/21/17 11:59 Dose: 200 mls/hr Insulin Aspart (Novolog Vial Sliding Scale -) 1 vial SQ ACHS ROBIN PRN Reason: Protocol Last Admin: 09/21/17 12:00 Dose: Not Given Insulin Detemir (Levemir Vial) 30 units SQ HS ROBIN Zolpidem Tartrate (Ambien -) 10 mg PO HS PRN Reason: INSOMNIA ASSESSMENT/PLAN: 21yo man with PMH of T1DM, IVDA, Hep C who p/w several days of fever, chills, sob and found to have elevated lactic acid and hyperglycemia possibly 2/2 to infection. #hyperglycemia, T1DM -BGM/ISS ACHS + Levemir 30U HS #severe lactic acidosis, r/o infectious source -CTA no e/o PE, 2D ECHO wnl -ID consulted, started on empiric Daptomycin and Cefepime -f/u Blood and Urine cultures -CT A/P with contrast to r/o splenic infarct, will hold x24H to limit constrast exposure #lytic/sclerotic lesions in manubrium -will consider bone scan to further assess #h/o Hepatitis C, on no medication #heroin Abuse -c/w Suboxone daily #FEN/PPx NS 150cc/hr lytes wnl Diabetic Diet SCDs # Dispo: m/s FULL Code Visit type - Emergency Visit Emergency Visit: No - New Patient This patient is new to me today: Yes Date on this admission: 09/21/17 - Critical Care Critical Care patient: No
[2017-09-21] MEDS ORDERED: PT OWN MED DRAWER 7, Y5N ONE (19:35)
[2017-09-21] MEDS ORDERED: PATIENT'S OWN MEDICATION (NON-FORMULARY) (Insulin Glargine,Hum.Rec.Anlog 30 UNITS) SQ SCH (22:00)
[2017-09-21] MEDS: ZOLPIDEM TARTRATE 5 MG TABLET PO PRN (22:18)
[2017-09-21] MEDS: INSULIN DETEMIR 100 UNITS/ML MDV SQ SCH (22:19)
[2017-09-21] MEDS ORDERED: INSULIN (NOVOLOG) ASPART 100 UNITS/ML 10ML VIAL ONE (22:21)
[2017-09-22] MEDS: CEFEPIME 2 GM in DEXTROSE 5%-WATER - 100 ML IVPB SCH ×3 (03:00→17:09)
[2017-09-22] MEDS: INSULIN SLIDING SCALE (NOVOLOG) 1 VIAL SQ SCH ×4 (06:16→22:51)
[2017-09-22 07:24] LABS: BASO % 0.9 % (0-2.0); EOS % 3.7 % (0-4.5); HEMATOCRIT 30.3 % (35.4-49); HEMOGLOBIN 10.1 GM/dL (11.7-16.9); LYMPH % 46.1 % (8-40); MCH 29.3 pg (25.7-33.7); MCHC 33.2 g/dl (32.0-35.9); MEAN CELL VOLUME 88.3 fl (80-96); MEAN PLT VOLUME 7.8 fl (7.5-11.1); NEUT % 42.3 % (42.8-82.8); PLATELET COUNT 274 K/MM3 (134-434); RBC 3.43 M/mm3 (4.00-5.60); RDW 16.4 % (11.9-15.9); WHITE BLOOD COUNT 5.4 K/mm3 (4.0-10.0)
[2017-09-22 07:47] LABS: ALBUMIN 2.5 g/dl (3.4-5.0); ANION GAP 9 (8-16); BLOOD UREA NITROGEN 16 mg/dL (7-18); CALCIUM 8.3 mg/dL (8.5-10.1); CHLORIDE 107 mmol/L (98-107); CO2 24 mmol/L (21-32); GLUCOSE,RANDOM 215 mg/dL (74-106); POTASSIUM 4.2 mmol/L (3.5-5.1); SGPT/ALT 57 U/L (12-78); SODIUM 140 mmol/L (136-145)
[2017-09-22 07:49] LABS: ALK PHOS 131 U/L (45-117); BILIRUBIN,TOTAL 0.4 mg/dL (0.2-1.0); CREATININE 0.8 mg/dL (0.7-1.3); SGOT/AST 31 U/L (15-37); TOT PROT 6.9 g/dl (6.4-8.2)
--- NOTE | 2017-09-22 08:53 | PN ---
Physical Exam: SUBJECTIVE: Patient seen and examined resting in bed nad. afebrile and hemodynamically stable. brief tachy runs on tele 140. no acute events. no current complaints. OBJECTIVE: Vital Signs Period Temp Pulse Resp BP Sys/Nolan Pulse Ox Last 24 Hr 97.8 F-99.0 F 71-94 16-20 124-138/68-97 98-98 GENERAL: The patient is awake, alert, and fully oriented, in no acute distress. HEAD: Normal with no signs of trauma. EYES: PERRL, extraocular movements intact, sclera anicteric, conjunctiva clear. No ptosis. ENT: moist mucous membranes. NECK: supple. LUNGS: Breath sounds equal, clear to auscultation bilaterally HEART: Regular rate and rhythm, S1, S2 without murmur ABDOMEN: Soft, nontender, nondistended, normoactive bowel sounds, no guarding, no rebound, no masses. EXTREMITIES: 2+ pulses, warm, well-perfused, no edema. NEUROLOGICAL: Cranial nerves II through XII grossly intact. Normal speech, gait not observed. PSYCH: Normal mood, normal affect. SKIN: Warm, dry, UE jection site crook, + tattoos Laboratory Results - last 24 hr 09/21/17 09/21/17 09/21/17 05:21 05:21 05:21 WBC RBC Hgb Hct MCV MCH MCHC RDW Plt Count MPV Neutrophils % Lymphocytes % Monocytes % Eosinophils % Basophils % ESR 36 H Sodium 139 Cancelled Potassium 4.9 Cancelled Chloride 111 H Cancelled Carbon Dioxide 21 Cancelled Anion Gap 7 L Cancelled BUN 19 H Cancelled Creatinine 1.0 Cancelled Creat Clearance w eGFR POC Glucometer Random Glucose 262 H Cancelled Hemoglobin A1c % Lactic Acid Calcium 7.8 L Cancelled Total Bilirubin AST ALT Alkaline Phosphatase Creatine Kinase 63 Troponin I 0.08 H Cancelled Total Protein Albumin 09/21/17 09/21/17 09/21/17 05:21 12:37 17:45 WBC RBC Hgb Hct MCV MCH MCHC RDW Plt Count MPV Neutrophils % Lymphocytes % Monocytes % Eosinophils % Basophils % ESR Sodium Potassium Chloride Carbon Dioxide Anion Gap BUN Creatinine Creat Clearance w eGFR POC Glucometer 213 210 Random Glucose Hemoglobin A1c % 9.4 H D Lactic Acid Calcium Total Bilirubin AST ALT Alkaline Phosphatase Creatine Kinase Troponin I Total Protein Albumin 09/21/17 09/22/17 09/22/17 22:11 06:05 06:30 WBC 5.4 RBC 3.43 L Hgb 10.1 L Hct 30.3 L MCV 88.3 MCH 29.3 MCHC 33.2 RDW 16.4 H Plt Count 274 MPV 7.8 Neutrophils % 42.3 L Lymphocytes % 46.1 H Monocytes % 7.0 Eosinophils % 3.7 D Basophils % 0.9 ESR Sodium Potassium Chloride Carbon Dioxide Anion Gap BUN Creatinine Creat Clearance w eGFR POC Glucometer 355 166 Random Glucose Hemoglobin A1c % Lactic Acid Calcium Total Bilirubin AST ALT Alkaline Phosphatase Creatine Kinase Troponin I Total Protein Albumin 09/22/17 09/22/17 06:30 06:30 WBC RBC Hgb Hct MCV MCH MCHC RDW Plt Count MPV Neutrophils % Lymphocytes % Monocytes % Eosinophils % Basophils % ESR Sodium 140 Potassium 4.2 Chloride 107 Carbon Dioxide 24 Anion Gap 9 BUN 16 Creatinine 0.8 Creat Clearance w eGFR > 60 POC Glucometer Random Glucose 215 H Hemoglobin A1c % Lactic Acid 1.9 Calcium 8.3 L Total Bilirubin 0.4 AST 31 ALT 57 Alkaline Phosphatase 131 H Creatine Kinase Troponin I Total Protein 6.9 Albumin 2.5 L Active Medications Generic Name Dose Route Start Last Admin Trade Name Freq PRN Reason Stop Dose Admin Buprenorphine/Naloxone 1 each 09/21/17 10:00 09/21/17 11:59 Suboxone 8mg/2mg Sl Film - SL 1 each DAILY ROBIN Administration Enoxaparin Sodium 40 mg 09/22/17 10:00 Lovenox - SQ DAILY ROBIN Sodium Chloride 1,000 mls @ 150 mls/hr 09/21/17 06:45 09/21/17 10:04 Normal Saline - IV 150 mls/hr ASDIR ROBIN Administration Cefepime HCl 2 gm/ Dextrose 100 mls @ 200 mls/hr 09/21/17 10:00 09/22/17 03: 00 IVPB 200 mls/hr Q8H-IV ROBIN Administration Daptomycin 560 mg/ Sodium 100 mls @ 200 mls/hr 09/21/17 10:00 09/21/17 11:59 Chloride IVPB 200 mls/hr DAILY ROBIN Administration Insulin Aspart 1 vial 09/21/17 07:00 09/22/17 06:16 Novolog Vial Sliding Scale - SQ 2 units ACHS ROBIN Administration Protocol Insulin Detemir 30 units 09/21/17 22:00 09/21/17 22:19 Levemir Vial SQ 30 units HS ROBIN Administration Zolpidem Tartrate 10 mg 09/21/17 00:38 09/21/17 22:18 Ambien - PO 10 mg HS PRN Administration INSOMNIA ASSESSMENT/PLAN: 21yo man with PMH of T1DM, IVDA, Hep C who p/w several days of fever, chills, sob and found to have elevated lactic acid and hyperglycemia possibly 2/2 to infection. hyperglycemia, T1DM -BGM/ISS ACHS + Levemir 30U HS -required 10 u yesterday, so far 2 this AM. -A1c 9.4 -continue to ivf hydration Lactic acidosis, r/o infectious source -resolved -CTA no e/o PE, 2D ECHO wnl -empiric Daptomycin and Cefepime D 2 per ID -f/u Blood culture negative x 24 hr, Urine culture and prsa screen p/d -CT A/P with contrast to r/o splenic infarct lytic/sclerotic lesions in manubrium -f/u bone scan h/o Hepatitis C, on no medication heroin Abuse -Suboxone daily FEN NS 75cc/hr lytes stable Diabetic Diet SCDs Dispo: m/s Problem List - Problems (1) Cocaine dependence Code(s): F14.20 - COCAINE DEPENDENCE, UNCOMPLICATED Qualifiers: (2) DKA, type 1 Code(s): E10.10 - TYPE 1 DIABETES MELLITUS WITH KETOACIDOSIS WITHOUT COMA (3) Intravenous drug abuse Code(s): F19.10 - OTHER PSYCHOACTIVE SUBSTANCE ABUSE, UNCOMPLICATED (4) Methamphetamine dependence Code(s): F15.20 - OTHER STIMULANT DEPENDENCE, UNCOMPLICATED (5) Diabetic ketoacidosis Code(s): E13.10 - OTH DIABETES MELLITUS WITH KETOACIDOSIS WITHOUT COMA Visit type - Emergency Visit Emergency Visit: Yes ED Registration Date: 09/20/17 Care time: The patient presented to the Emergency Department on the above date and was hospitalized for further evaluation of their emergent condition. - New Patient This patient is new to me today: No - Critical Care Critical Care patient: No - Discharge Referral Referred to [facility] Med P.C.: No
--- NOTE | 2017-09-22 09:21 | PN ---
Teaching Attending Note Name of Resident: Leigh Bartlett ATTENDING PHYSICIAN STATEMENT I saw and evaluated the patient. I reviewed the resident's note and discussed the case with the resident. I agree with the resident's findings and plan as documented with exceptions below. SUBJECTIVE: patient seen and examined, chest pain/dyspnea improved, no abdominal pain/nausea , vomiting or new concerns. OBJECTIVE: Vital Signs Period Temp Pulse Resp BP Sys/Nolan Pulse Ox Last 24 Hr 97.8 F-99.0 F 71-94 16-20 124-136/68-96 98-98 Intake & Output 09/19/17 09/20/17 09/21/17 09/22/17 23:59 23:59 23:59 23:59 Intake Total 1700 2000 Balance 1700 1999 Weight 150 lb 150 lb General:lying in bed in no acute distress Chest: CTAB, no rales or wheezing Abdomen: soft, NT throughout, ND, positive bowel sounds extremities: unchanged exam, no new erythema or tenderness noted Home Medication List Medication Instructions Recorded Confirmed Type Insulin Aspart [Novolog] 100 unit SQ ASDIR 07/01/15 09/20/17 History Insulin Glargine,Hum.rec.anlog 30 units SQ HS 07/01/15 09/20/17 History [Lantus Solostar PEN -] Zolpidem Tartrate [Ambien] 10 mg PO HS 09/20/17 09/20/17 History Active Medications Generic Name Dose Route Start Last Admin Trade Name Freq PRN Reason Stop Dose Admin Buprenorphine/Naloxone 1 each 09/21/17 10:00 09/21/17 11:59 Suboxone 8mg/2mg Sl Film - SL 1 each DAILY ROBIN Administration Enoxaparin Sodium 40 mg 09/22/17 10:00 Lovenox - SQ DAILY ROBIN Sodium Chloride 1,000 mls @ 150 mls/hr 09/21/17 06:45 09/21/17 10:04 Normal Saline - IV 150 mls/hr ASDIR ROBIN Administration Cefepime HCl 2 gm/ Dextrose 100 mls @ 200 mls/hr 09/21/17 10:00 09/22/17 03: 00 IVPB 200 mls/hr Q8H-IV ROBIN Administration Daptomycin 560 mg/ Sodium 100 mls @ 200 mls/hr 09/21/17 10:00 09/21/17 11:59 Chloride IVPB 200 mls/hr DAILY ROBIN Administration Insulin Aspart 1 vial 09/21/17 07:00 09/22/17 06:16 Novolog Vial Sliding Scale - SQ 2 units ACHS ROBIN Administration Protocol Insulin Detemir 30 units 09/21/17 22:00 09/21/17 22:19 Levemir Vial SQ 30 units HS ROBIN Administration Zolpidem Tartrate 10 mg 09/21/17 00:38 09/21/17 22:18 Ambien - PO 10 mg HS PRN Administration INSOMNIA Laboratory Results - last 24 hr 09/21/17 09/21/17 09/21/17 05:21 05:21 05:21 WBC RBC Hgb Hct MCV MCH MCHC RDW Plt Count MPV Neutrophils % Lymphocytes % Monocytes % Eosinophils % Basophils % ESR 36 H Sodium 139 Cancelled Potassium 4.9 Cancelled Chloride 111 H Cancelled Carbon Dioxide 21 Cancelled Anion Gap 7 L Cancelled BUN 19 H Cancelled Creatinine 1.0 Cancelled Creat Clearance w eGFR POC Glucometer Random Glucose 262 H Cancelled Hemoglobin A1c % Lactic Acid Calcium 7.8 L Cancelled Total Bilirubin AST ALT Alkaline Phosphatase Creatine Kinase 63 Troponin I 0.08 H Cancelled Total Protein Albumin 09/21/17 09/21/17 09/21/17 05:21 12:37 17:45 WBC RBC Hgb Hct MCV MCH MCHC RDW Plt Count MPV Neutrophils % Lymphocytes % Monocytes % Eosinophils % Basophils % ESR Sodium Potassium Chloride Carbon Dioxide Anion Gap BUN Creatinine Creat Clearance w eGFR POC Glucometer 213 210 Random Glucose Hemoglobin A1c % 9.4 H D Lactic Acid Calcium Total Bilirubin AST ALT Alkaline Phosphatase Creatine Kinase Troponin I Total Protein Albumin 09/21/17 09/22/17 09/22/17 22:11 06:05 06:30 WBC 5.4 RBC 3.43 L Hgb 10.1 L Hct 30.3 L MCV 88.3 MCH 29.3 MCHC 33.2 RDW 16.4 H Plt Count 274 MPV 7.8 Neutrophils % 42.3 L Lymphocytes % 46.1 H Monocytes % 7.0 Eosinophils % 3.7 D Basophils % 0.9 ESR Sodium Potassium Chloride Carbon Dioxide Anion Gap BUN Creatinine Creat Clearance w eGFR POC Glucometer 355 166 Random Glucose Hemoglobin A1c % Lactic Acid Calcium Total Bilirubin AST ALT Alkaline Phosphatase Creatine Kinase Troponin I Total Protein Albumin 04/14/18 04/14/18 06:30 06:30 WBC RBC Hgb Hct MCV MCH MCHC RDW Plt Count MPV Neutrophils % Lymphocytes % Monocytes % Eosinophils % Basophils % ESR Sodium 140 Potassium 4.2 Chloride 107 Carbon Dioxide 24 Anion Gap 9 BUN 16 Creatinine 0.8 Creat Clearance w eGFR > 60 POC Glucometer Random Glucose 215 H Hemoglobin A1c % Lactic Acid 1.9 Calcium 8.3 L Total Bilirubin 0.4 AST 31 ALT 57 Alkaline Phosphatase 131 H Creatine Kinase Troponin I Total Protein 6.9 Albumin 2.5 L Microbiology 09/20/17 21:22 Blood - Peripheral Venous Blood Culture - Preliminary NO GROWTH OBTAINED AFTER 24 HOURS, INCUBATION TO CONTINUE FOR 4 DAYS. 09/20/17 21:32 Blood - Peripheral Venous Blood Culture - Preliminary NO GROWTH OBTAINED AFTER 24 HOURS, INCUBATION TO CONTINUE FOR 4 DAYS. ASSESSMENT AND PLAN: 21 yom with PMhx of Type I DM, Hep C, IVDU (heroine/Cocaine) prior MRSA bacteremia with septic pulmonary emboli, left AMA without completing full antibiotic course, comes back with chest pain/shortness of breath. -Chest pain/Shortness of breath, CTA neg for concerns -Recent incompletely MRSA bacteremia with septic pulmonary emboli -Active IVDU -Type I DM with hyperglycemia -Severe Lactic Acidosis Plan: ID input noted, Cefepime/Vancomycin day 2, monitor levels. CT A/P to assess for splenic infarct though low suspicion based on current exam. Follow up blood cultures, 2D echo noted, worsening MR. PEG if blood cultures positive. Suboxone, substance abuse consult with Dr. Manuel. Earl, ISS, aggressive hydration, diabetic diet. Lactic acidosis resolved. DVTPPx with lovenox Dispo pending clinical improvement. Plan discussed with patient in detail, all questions answered.
[2017-09-22] MEDS ORDERED: PT OWN MED DRAWER 7, Y5N ONE ×2 (09:47→16:35)
[2017-09-22] MEDS: ENOXAPARIN NA (PORCINE) 40 MG/0.4 ML DISP.SYRIN SQ SCH (09:53)
[2017-09-22] MEDS: BUPRENORPHINE/NALOXONE 8 MG/2 MG FILM PACKET SL SCH (09:53)
[2017-09-22] MEDS: SODIUM CHLORIDE IVPB SCH (10:55)
[2017-09-22] MEDS: DAPTOMYCIN IVPB SCH (10:55)
--- NOTE | 2017-09-22 12:32 | PN ---
Progress Note (short form) - Note Progress Note: feels improved, still abdominal pain no fevers weel known to dr tian who has started him empirically on daptomycin/cefepime yesterday Vital Signs Period Temp Pulse Resp BP Sys/Nolan Pulse Ox Last 24 Hr 98.1 F-99.0 F 71-94 16-20 124-136/79-96 98 cor-rrr lungs clear abd midepigatric/LUQ pain to palpation ext no edema CBC, BMP 09/22/17 06:30 09/22/17 06:30 Microbiology 09/20/17 21:45 Urine - Urine Clean Catch Urine Culture - Final NO GROWTH OBTAINED 09/20/17 21:22 Blood - Peripheral Venous Blood Culture - Preliminary NO GROWTH OBTAINED AFTER 24 HOURS, INCUBATION TO CONTINUE FOR 4 DAYS. 09/20/17 21:32 Blood - Peripheral Venous Blood Culture - Preliminary NO GROWTH OBTAINED AFTER 24 HOURS, INCUBATION TO CONTINUE FOR 4 DAYS. 09/20/17 21:22 Nasopharyngeal Swab Influenza Types A,B Antigen (THEA) - Final 09/20/17 21:22 Nasopharyngeal Swab - Final a/p sepsis syndrome lactic acidosis is resolved ct scan abd/pelvis bone scan empiric daptomycin and cefepime active substance user
[2017-09-22] MEDS: SODIUM CHLORIDE 1,000 ML IV SCH (13:00)
[2017-09-22] MEDS: INSULIN DETEMIR 100 UNITS/ML MDV SQ SCH (22:44)
[2017-09-22] MEDS: ZOLPIDEM TARTRATE 5 MG TABLET PO PRN (22:44)
[2017-09-22 22:50] LABS: ANION GAP 6 (8-16); BLOOD UREA NITROGEN 23 mg/dL (7-18); CALCIUM 7.9 mg/dL (8.5-10.1); CHLORIDE 101 mmol/L (98-107); CO2 26 mmol/L (21-32); CREATININE 0.9 mg/dL (0.7-1.3); POTASSIUM 4.9 mmol/L (3.5-5.1); SODIUM 133 mmol/L (136-145)
[2017-09-22 22:51] LABS: GLUCOSE,RANDOM 411 mg/dL (74-106)
[2017-09-23] MEDS ORDERED: PT OWN MED DRAWER 7, Y5N ONE ×2 (01:29→17:22)
[2017-09-23] MEDS: CEFEPIME 2 GM in DEXTROSE 5%-WATER - 100 ML IVPB SCH ×3 (02:50→17:27)
[2017-09-23 03:23] LABS: ANION GAP 9 (8-16); BLOOD UREA NITROGEN 21 mg/dL (7-18); CALCIUM 8.7 mg/dL (8.5-10.1); CHLORIDE 101 mmol/L (98-107); CO2 27 mmol/L (21-32); CREATININE 1.1 mg/dL (0.7-1.3); SODIUM 137 mmol/L (136-145)
[2017-09-23 03:26] LABS: GLUCOSE,RANDOM 360 mg/dL (74-106)
[2017-09-23] MEDS: INSULIN SLIDING SCALE (NOVOLOG) 1 VIAL SQ SCH ×4 (06:38→22:08)
[2017-09-23 07:31] LABS: BASO % 0.9 % (0-2.0); EOS % 5.5 % (0-4.5); HEMATOCRIT 30.7 % (35.4-49); HEMOGLOBIN 10.5 GM/dL (11.7-16.9); LYMPH % 39.4 % (8-40); MCH 29.8 pg (25.7-33.7); MCHC 34.2 g/dl (32.0-35.9); MEAN CELL VOLUME 87.2 fl (80-96); MEAN PLT VOLUME 7.9 fl (7.5-11.1); MONO % 7.5 % (3.8-10.2); NEUT % 46.7 % (42.8-82.8); PLATELET COUNT 255 K/MM3 (134-434); RBC 3.53 M/mm3 (4.00-5.60)
[2017-09-23 08:11] LABS: ANION GAP 10 (8-16); BLOOD UREA NITROGEN 21 mg/dL (7-18); CALCIUM 8.7 mg/dL (8.5-10.1); CHLORIDE 103 mmol/L (98-107); CO2 26 mmol/L (21-32); GLUCOSE,RANDOM 235 mg/dL (74-106); MAGNESIUM 1.8 mg/dL (1.8-2.4); POTASSIUM 4.1 mmol/L (3.5-5.1); SODIUM 139 mmol/L (136-145)
[2017-09-23 08:13] LABS: CREATININE 0.8 mg/dL (0.7-1.3); PHOSPHOROUS 4.1 mg/dL (2.5-4.9)
[2017-09-23] MEDS: SODIUM CHLORIDE 1,000 ML IV SCH ×2 (09:31→12:55)
[2017-09-23] MEDS: BUPRENORPHINE/NALOXONE 8 MG/2 MG FILM PACKET SL SCH (10:06)
[2017-09-23] MEDS: INSULIN DETEMIR 100 UNITS/ML MDV SQ SCH ×2 (10:07→22:08)
[2017-09-23] MEDS: ENOXAPARIN NA (PORCINE) 40 MG/0.4 ML DISP.SYRIN SQ SCH (10:07)
[2017-09-23] MEDS: SODIUM CHLORIDE IVPB SCH (10:23)
[2017-09-23] MEDS: DAPTOMYCIN IVPB SCH (10:23)
--- NOTE | 2017-09-23 10:46 | PN ---
Teaching Attending Note Name of Resident: Vel Wolf SUBJECTIVE: patient seen and examined, chest pain improved. No abdominal pain or new concerns. Overall better. OBJECTIVE: Vital Signs Period Temp Pulse Resp BP Sys/Nolan Pulse Ox Last 24 Hr 97.4 F-99.4 F 70-100 18-20 134-148/81-96 98-99 Intake & Output 09/20/17 09/21/17 09/22/17 09/23/17 23:59 23:59 23:59 23:59 Intake Total 1700 2600 1300 Balance 1700 2600 1300 Weight 150 lb 150 lb General: lying in bed in no acute distress Chest: CTAB, no rales or wheezing abdomen:soft, NT throughout, ND, positive bowel sounds extremities: no edema Home Medication List Medication Instructions Recorded Confirmed Type Insulin Aspart [Novolog] 100 unit SQ ASDIR 07/01/15 09/20/17 History Insulin Glargine,Hum.rec.anlog 30 units SQ HS 07/01/15 09/20/17 History [Lantus Solostar PEN -] Zolpidem Tartrate [Ambien] 10 mg PO HS 09/20/17 09/20/17 History Active Medications Generic Name Dose Route Start Last Admin Trade Name Freq PRN Reason Stop Dose Admin Buprenorphine/Naloxone 1 each 09/21/17 10:00 09/23/17 10:06 Suboxone 8mg/2mg Sl Film - SL 1 each DAILY ROBIN Administration Docusate Sodium 100 mg 09/23/17 10:45 Colace - PO BID ROBIN Enoxaparin Sodium 40 mg 09/22/17 10:00 09/23/17 10:07 Lovenox - SQ 40 mg DAILY ROBIN Administration Cefepime HCl 2 gm/ Dextrose 100 mls @ 200 mls/hr 09/21/17 10:00 09/23/17 10: 23 IVPB 200 mls/hr Q8H-IV ROBIN Administration Daptomycin 560 mg/ Sodium 100 mls @ 200 mls/hr 09/21/17 10:00 09/23/17 10:23 Chloride IVPB 200 mls/hr DAILY ROBIN Administration Sodium Chloride 1,000 mls @ 75 mls/hr 09/22/17 12:55 09/22/17 13:00 Normal Saline - IV 75 mls/hr ASDIR ROBIN Administration Insulin Aspart 1 vial 09/21/17 07:00 09/23/17 06:38 Novolog Vial Sliding Scale - SQ Not Given ACHS [facility] Protocol Insulin Detemir 30 units 09/21/17 22:00 09/22/17 22:44 Levemir Vial SQ 30 units HS ROBIN Administration Insulin Detemir 8 units 09/23/17 10:00 09/23/17 10:07 Levemir Vial SQ 8 units ACBK ROBIN Administration Senna 2 tab 09/23/17 22:00 Senna - PO HS ROBIN Zolpidem Tartrate 10 mg 09/21/17 00:38 09/22/17 22:44 Ambien - PO 10 mg HS PRN Administration INSOMNIA Laboratory Results - last 24 hr 09/22/17 09/22/17 09/22/17 11:46 16:49 22:00 WBC RBC Hgb Hct MCV MCH MCHC RDW Plt Count MPV Neutrophils % Lymphocytes % Monocytes % Eosinophils % Basophils % Sodium 133 L Potassium 4.9 Chloride 101 Carbon Dioxide 26 Anion Gap 6 L BUN 23 H D Creatinine 0.9 POC Glucometer 176 200 Random Glucose 411 H* D Calcium 7.9 L Phosphorus Magnesium 09/23/17 09/23/17 09/23/17 02:00 06:30 06:30 WBC 5.0 RBC 3.53 L Hgb 10.5 L Hct 30.7 L MCV 87.2 MCH 29.8 MCHC 34.2 RDW 16.0 H Plt Count 255 MPV 7.9 Neutrophils % 46.7 Lymphocytes % 39.4 Monocytes % 7.5 Eosinophils % 5.5 H Basophils % 0.9 Sodium 137 139 Potassium 4.0 4.1 Chloride 101 103 Carbon Dioxide 27 26 Anion Gap 9 10 BUN 21 H 21 H Creatinine 1.1 D 0.8 D POC Glucometer Random Glucose 360 H* 235 H D Calcium 8.7 8.7 Phosphorus 4.1 D Magnesium 1.8 09/23/17 06:35 WBC RBC Hgb Hct MCV MCH MCHC RDW Plt Count MPV Neutrophils % Lymphocytes % Monocytes % Eosinophils % Basophils % Sodium Potassium Chloride Carbon Dioxide Anion Gap BUN Creatinine POC Glucometer 187 Random Glucose Calcium Phosphorus Magnesium Microbiology 09/20/17 21:22 Blood - Peripheral Venous Blood Culture - Preliminary NO GROWTH OBTAINED AFTER 48 HOURS, INCUBATION TO CONTINUE FOR 3 DAYS. 09/20/17 21:32 Blood - Peripheral Venous Blood Culture - Preliminary NO GROWTH OBTAINED AFTER 48 HOURS, INCUBATION TO CONTINUE FOR 3 DAYS. 09/20/17 21:45 Urine - Urine Clean Catch Urine Culture - Final NO GROWTH OBTAINED 09/20/17 21:22 Nasopharyngeal Swab Influenza Types A,B Antigen (THEA) - Final 09/20/17 21:22 Nasopharyngeal Swab - Final CT A/P -hepatosplenomegaly, fecal retention. no evidence of splenic infarct ASSESSMENT AND PLAN: 21 yom with PMhx of Type I DM, Hep C, IVDU (heroine/Cocaine) prior MRSA bacteremia with septic pulmonary emboli, left AMA without completing full antibiotic course, comes back with chest pain/shortness of breath. -Chest pain/Shortness of breath, CTA neg for concerns -Recent incompletely treated MRSA bacteremia with septic pulmonary emboli -Active IVDU -Type I DM with hyperglycemia -Severe Lactic Acidosis Plan: ID input noted, Cefepime/daptomycin day 3, monitor levels. CT A/P neg for concerns, with fecal retention, start senna/colace. Blood cultures neg so far, 2D echo noted, worsening MR. PEG if blood cultures positive. Suboxone, substance abuse consult with Dr. Manuel. Add prebreakfast levemir 8 units, continue 30 units hs, ISS, diabetic diet. Lactic acidosis resolved. DVTPPx with lovenox Dispo pending clinical improvement and ID input. Plan discussed with patient in detail, all questions answered.
[2017-09-23] MEDS: DOCUSATE SODIUM 100 MG CAPSULE (FP) PO SCH ×3 (11:19→22:09)
[2017-09-23] MEDS: ZOLPIDEM TARTRATE 5 MG TABLET PO PRN (22:08)
[2017-09-23] MEDS: SENNOSIDES 8.6MG TABLET (FP) PO SCH (22:08)
[2017-09-24] MEDS ORDERED: PT OWN MED DRAWER 7, Y5N ONE ×2 (02:02→09:13)
[2017-09-24] MEDS: CEFEPIME 2 GM in DEXTROSE 5%-WATER - 100 ML IVPB SCH (02:06)
[2017-09-24] MEDS: INSULIN SLIDING SCALE (NOVOLOG) 1 VIAL SQ SCH ×4 (06:04→21:01)
[2017-09-24] MEDS: INSULIN DETEMIR 100 UNITS/ML MDV SQ SCH ×2 (06:43→21:00)
[2017-09-24 06:51] LABS: BASO % 0.7 % (0-2.0); EOS % 5.6 % (0-4.5); HEMATOCRIT 30.5 % (35.4-49); HEMOGLOBIN 10.3 GM/dL (11.7-16.9); LYMPH % 43.4 % (8-40); MCH 29.5 pg (25.7-33.7); MCHC 33.9 g/dl (32.0-35.9); MEAN PLT VOLUME 7.8 fl (7.5-11.1); MONO % 7.3 % (3.8-10.2); PLATELET COUNT 249 K/MM3 (134-434); RDW 16.2 % (11.9-15.9); WHITE BLOOD COUNT 5.7 K/mm3 (4.0-10.0)
[2017-09-24 07:13] LABS: CHLORIDE 101 mmol/L (98-107); POTASSIUM 3.8 mmol/L (3.5-5.1); SODIUM 137 mmol/L (136-145)
[2017-09-24 07:24] LABS: ALBUMIN 2.7 g/dl (3.4-5.0); ALK PHOS 120 U/L (45-117); ANION GAP 8 (8-16); BILIRUBIN,TOTAL 0.4 mg/dL (0.2-1.0); BLOOD UREA NITROGEN 21 mg/dL (7-18); CALCIUM 8.7 mg/dL (8.5-10.1); CO2 28 mmol/L (21-32); CREATININE 0.8 mg/dL (0.7-1.3); GLUCOSE,RANDOM 160 mg/dL (74-106); SGOT/AST 36 U/L (15-37); SGPT/ALT 54 U/L (12-78); TOT PROT 7.1 g/dl (6.4-8.2)
[2017-09-24] MEDS ORDERED: INSULIN DETEMIR 100 UNITS/ML MDV SQ SCH (08:25)
--- NOTE | 2017-09-24 08:25 | PN ---
Teaching Attending Note Name of Resident: Lizbeth Saldana ATTENDING PHYSICIAN STATEMENT I saw and evaluated the patient. I reviewed the resident's note and discussed the case with the resident. I agree with the resident's findings and plan as documented with exceptions below. SUBJECTIVE: Patient seen and examined. chest pain, dyspnea improved. No palpitations, no abdominal pain. Tolerating diet well. OBJECTIVE: Vital Signs Period Temp Pulse Resp BP Sys/Nolan Pulse Ox Last 24 Hr 98.2 F-99.4 F 84-120 18-20 127-150/83-100 97-99 Intake & Output 09/21/17 09/22/17 09/23/17 09/24/17 23:59 23:59 23:59 23:59 Intake Total 1700 2600 2975 525 Balance 1700 2600 2975 525 Weight 150 lb General: lying in bed in no acute distress Chest: CTAB, no rales or wheezing, no sternal tenderness noted Abdomen: soft, NT, ND, positive bowel sounds Extremities: no edema, old I&D scars left forearm Home Medication List Medication Instructions Recorded Confirmed Type Insulin Aspart [Novolog] 100 unit SQ ASDIR 07/01/15 09/20/17 History Insulin Glargine,Hum.rec.anlog 30 units SQ HS 07/01/15 09/20/17 History [Lantus Solostar PEN -] Zolpidem Tartrate [Ambien] 10 mg PO HS 09/20/17 09/20/17 History Active Medications Generic Name Dose Route Start Last Admin Trade Name Freq PRN Reason Stop Dose Admin Buprenorphine/Naloxone 1 each 09/21/17 10:00 09/23/17 10:06 Suboxone 8mg/2mg Sl Film - SL 1 each DAILY ROBIN Administration Docusate Sodium 100 mg 09/23/17 10:45 09/23/17 22:09 Colace - PO Not Given BID ROBIN Enoxaparin Sodium 40 mg 09/22/17 10:00 09/23/17 10:07 Lovenox - SQ 40 mg DAILY ROBIN Administration Cefepime HCl 2 gm/ Dextrose 100 mls @ 200 mls/hr 09/21/17 10:00 09/24/17 02: 06 IVPB 200 mls/hr Q8H-IV ROBIN Administration Daptomycin 560 mg/ Sodium 100 mls @ 200 mls/hr 09/21/17 10:00 09/23/17 10:23 Chloride IVPB 200 mls/hr DAILY ROBIN Administration Sodium Chloride 1,000 mls @ 75 mls/hr 09/22/17 12:55 09/23/17 12:55 Normal Saline - IV 75 mls/hr ASDIR ROBIN Administration Insulin Aspart 1 vial 09/21/17 07:00 09/24/17 06:04 Novolog Vial Sliding Scale - SQ Not Given ACHS [facility] Protocol Insulin Detemir 30 units 09/21/17 22:00 09/23/17 22:08 Levemir Vial SQ 30 units HS ROBIN Administration Insulin Detemir 8 units 09/23/17 10:00 09/24/17 06:43 Levemir Vial SQ 8 units ACBK ROBIN Administration Senna 2 tab 09/23/17 22:00 09/23/17 22:08 Senna - PO Not Given HS [facility] Laboratory Results - last 24 hr 09/23/17 09/23/17 09/23/17 10:28 14:46 16:48 WBC RBC Hgb Hct MCV MCH MCHC RDW Plt Count MPV Neutrophils % Lymphocytes % Monocytes % Eosinophils % Basophils % Sodium Potassium Chloride Carbon Dioxide Anion Gap BUN Creatinine Creat Clearance w eGFR POC Glucometer 337 139 198 Random Glucose Calcium Total Bilirubin AST ALT Alkaline Phosphatase Total Protein Albumin 09/23/17 09/24/17 09/24/17 22:04 05:51 06:30 WBC 5.7 RBC 3.50 L Hgb 10.3 L Hct 30.5 L MCV 87.0 MCH 29.5 MCHC 33.9 RDW 16.2 H Plt Count 249 MPV 7.8 Neutrophils % 43.0 Lymphocytes % 43.4 H Monocytes % 7.3 Eosinophils % 5.6 H Basophils % 0.7 Sodium Potassium Chloride Carbon Dioxide Anion Gap BUN Creatinine Creat Clearance w eGFR POC Glucometer 575 135 Random Glucose Calcium Total Bilirubin AST ALT Alkaline Phosphatase Total Protein Albumin 09/24/17 06:30 WBC RBC Hgb Hct MCV MCH MCHC RDW Plt Count MPV Neutrophils % Lymphocytes % Monocytes % Eosinophils % Basophils % Sodium 137 Potassium 3.8 Chloride 101 Carbon Dioxide 28 Anion Gap 8 BUN 21 H Creatinine 0.8 Creat Clearance w eGFR > 60 POC Glucometer Random Glucose 160 H D Calcium 8.7 Total Bilirubin 0.4 AST 36 ALT 54 Alkaline Phosphatase 120 H Total Protein 7.1 Albumin 2.7 L Laboratory Results - last 24 hr 09/23/17 09/23/17 09/23/17 10:28 14:46 16:48 WBC RBC Hgb Hct MCV MCH MCHC RDW Plt Count MPV Neutrophils % Lymphocytes % Monocytes % Eosinophils % Basophils % Sodium Potassium Chloride Carbon Dioxide Anion Gap BUN Creatinine Creat Clearance w eGFR POC Glucometer 337 139 198 Random Glucose Calcium Total Bilirubin AST ALT Alkaline Phosphatase Total Protein Albumin 09/23/17 09/24/17 09/24/17 22:04 05:51 06:30 WBC 5.7 RBC 3.50 L Hgb 10.3 L Hct 30.5 L MCV 87.0 MCH 29.5 MCHC 33.9 RDW 16.2 H Plt Count 249 MPV 7.8 Neutrophils % 43.0 Lymphocytes % 43.4 H Monocytes % 7.3 Eosinophils % 5.6 H Basophils % 0.7 Sodium Potassium Chloride Carbon Dioxide Anion Gap BUN Creatinine Creat Clearance w eGFR POC Glucometer 575 135 Random Glucose Calcium Total Bilirubin AST ALT Alkaline Phosphatase Total Protein Albumin 09/24/17 06:30 WBC RBC Hgb Hct MCV MCH MCHC RDW Plt Count MPV Neutrophils % Lymphocytes % Monocytes % Eosinophils % Basophils % Sodium 137 Potassium 3.8 Chloride 101 Carbon Dioxide 28 Anion Gap 8 BUN 21 H Creatinine 0.8 Creat Clearance w eGFR > 60 POC Glucometer Random Glucose 160 H D Calcium 8.7 Total Bilirubin 0.4 AST 36 ALT 54 Alkaline Phosphatase 120 H Total Protein 7.1 Albumin 2.7 L ASSESSMENT AND PLAN: 21 yom with PMhx of Type I DM, Hep C, IVDU (heroine/Cocaine) prior MRSA bacteremia with septic pulmonary emboli, left AMA without completing full antibiotic course, comes back with chest pain/shortness of breath. -Chest pain/Shortness of breath, CTA neg for concerns -Recent incompletely treated MRSA bacteremia with septic pulmonary emboli -Active IVDU -Type I DM with hyperglycemia -Severe Lactic Acidosis -?Sclerotic/Lytic lesions on manubrium -Fecal retention, resolved. Plan: ID input noted, s/p 4 days cefepime/vancomycin. Blood cx neg. Abx d/hailee today. CT A/P neg for concerns, improving lung nodules. Await bone scan, though low suspicion given no symptoms or tenderness currently. 2D echo noted, Cardiology input appreciated. Discussed with Dr. Merlin, MR findings on echo not concerning as discussed, Also clinically better and not bacteremic. No further intervention recommends. Substance abuse consult noted, suboxocone/clonidine. Discuss detox vs [facility] on d/c continues to be hyperglycemic, suspect from non compliance, family brings food from home and chips/chocolate noted at bedside. Levemir 10 units Am and 30 units hs, ISS, diabetic diet. Diabetic education and counseling. Lactic acidosis resolved. DVTPPx with lovenox Dispo in 24 hours if stable off antibiotics, pending bone scan. Discuss d/c to drug rehab vs [facility]. Plan discussed with patient in detail, all questions answered.
[2017-09-24] MEDS: BUPRENORPHINE/NALOXONE 8 MG/2 MG FILM PACKET SL SCH (09:33)
[2017-09-24] MEDS: DOCUSATE SODIUM 100 MG CAPSULE (FP) PO SCH ×2 (09:33→21:00)
[2017-09-24] MEDS: ENOXAPARIN NA (PORCINE) 40 MG/0.4 ML DISP.SYRIN SQ SCH (09:33)
--- NOTE | 2017-09-24 11:23 | CONSULT ---
Consult Detox [facility] Reason for Current Admission/Consult: substance use Referred by:: gonzález john - History History of Present Illness: 21 y/o M recently d/c after signing out AMA after not completing antibiotic regime for sepsis with emboli to lungs from arm abscess/IDU, represented with c/ o fever, chest and abd pain, dyspnea and recent IVDA. Resumed back on abx regimen, bld cx NGTD, sxs improved. comfortable on suboxone although appears hypertensive and tachycardic which may indicate soem withdrawal sx. Patietn denies idu but admits to sniffing cocaine and amphetamines with friends, no cravings or desire to ruthie. satisfied with dose of uboxone, ran out of suboxone 2 days prior to admission was scheduled to follow up at [facility] but admitte to hosptial. utox +ve cocainea nd aphematimines onlyno heorin use noted allthough history reports idu and heorin use which patient denies. - Alcohol/Substance Use Hx Alcohol Use: No Hx Substance Use: Yes Hx Substance Use Treatment: Yes (suboxone) - Past Medical History Pulmonary: Yes: Pneumonia Gastrointestinal: Yes: Other (Hep C) Infectious Disease: Yes: Other (HEP C) Psych: Yes: Addictions Endocrine: Yes: Diabetes Mellitus Additional Medical History: polysubstance use - Significant Medical Findings: 21 yo m readmitted with reactiviation of pneumonia and sepsis after signing out AMA from last hosptialization , has been taking suboxone but admits to relapsing to cocaine and amphetmaine use, dneis idu and heorin use. satisfired with dose hyeprtensive, tachycardic a adn ox3 no sedation noted. Assessment Plan - Diagnosis (1) Acute kidney injury Status: Acute (2) Cocaine dependence Status: Acute Qualifiers: (3) DKA, type 1 Status: Acute (4) Intravenous drug abuse Status: Acute (5) Opioid dependence on agonist therapy Status: Acute (6) Methamphetamine dependence Status: Chronic (7) Abscess of forearm Status: Acute (8) Anemia Status: Acute - Plan Plan: chart, imaging, labs reviewed, paient examined and history taken. Recommend: 1. continue suboxone 8ng daily of oud, severe. 2. clonidien prn and bid to keep bp and hr controlled while hospitalized, patient may have nto been entirely honest regarding susbstance use and ths will provide symptomtatic treatment of withdrawl . 3. fluids, ensure, vitamines supplementtion. 4. infection - as per id. 5. inpatient rehab or [facility] when medicallys table - Medication Detox Regimen/Protocol: Not Applicable
--- NOTE | 2017-09-24 11:52 | PN ---
Physical Exam: SUBJECTIVE: Patient seen and examined. BGM poorly controlled overnight 2/2 snacks brought by family; Pt continues to have sob on deep inspiration; denies fever, chills, abdominal pain. Eating and voiding well. OBJECTIVE: Vital Signs Period Temp Pulse Resp BP Sys/Nolan Pulse Ox Last 24 Hr 98.2 F-98.8 F 84-120 18-20 127-150/83-100 97-97 General: lying comfortably in bed, nad Heart: Tachycardia, regular rhythm, normal s1/s2, no m/r/g Chest: CTAB, no wheezing or rales appreciate Abdomen: soft, NTND, +bowel sounds MSK: mild ttp over sternum Extremities: wwp, no edema CBC, BMP 09/24/17 06:30 09/24/17 06:30 Hepatic Panel Total Bilirubin 0.4 mg/dL (0.2-1.0) 09/24/17 06:30 AST 36 U/L (15-37) 09/24/17 06:30 ALT 54 U/L (12-78) 09/24/17 06:30 Alkaline Phosphatase 120 U/L (45-117) H 09/24/17 06:30 Albumin 2.7 g/dl (3.4-5.0) L 09/24/17 06:30 ESR - 34 CRP - 0.3 Microbiology 09/20/17 21:22 Blood - Peripheral Venous Blood Culture - Preliminary NO GROWTH OBTAINED AFTER 72 HOURS, INCUBATION TO CONTINUE FOR 2 DAYS. 09/20/17 21:32 Blood - Peripheral Venous Blood Culture - Preliminary NO GROWTH OBTAINED AFTER 72 HOURS, INCUBATION TO CONTINUE FOR 2 DAYS. 09/21/17 12:30 Nares - Left Nares MRSA Screen - Final NO MRSA ISOLATED 09/21/17 12:30 Nares - Mrsa Screen - Right MRSA Screen - Final NO MRSA ISOLATED 09/20/17 21:45 Urine - Urine Clean Catch Urine Culture - Final NO GROWTH OBTAINED 09/20/17 21:22 Nasopharyngeal Swab Influenza Types A,B Antigen (THEA) - Final 09/20/17 21:22 Nasopharyngeal Swab - Final Active Medications Buprenorphine/Naloxone (Suboxone 8mg/2mg Sl Film -) 1 each SL DAILY ROBIN Last Admin: 09/24/17 09:33 Dose: 1 each Clonidine (Catapres -) 0.1 mg PO BID ROBIN Clonidine (Catapres -) 0.2 mg PO ONCE ONE Stop: 09/24/17 11:26 Docusate Sodium (Colace -) 100 mg PO BID [facility] Last Admin: 09/24/17 09:33 Dose: Not Given Enoxaparin Sodium (Lovenox -) 40 mg SQ DAILY [facility] Last Admin: 09/24/17 09:33 Dose: 40 mg Sodium Chloride (Normal Saline -) 1,000 mls @ 75 mls/hr IV ASDIR [facility] Last Admin: 09/23/17 12:55 Dose: 75 mls/hr Insulin Aspart (Novolog Vial Sliding Scale -) 1 vial SQ ACHS [facility] PRN Reason: Protocol Last Admin: 09/24/17 11:38 Dose: 4 units Insulin Detemir (Levemir Vial) 30 units SQ HS [facility] Last Admin: 09/23/17 22:08 Dose: 30 units Insulin Detemir (Levemir Vial) 10 units SQ ACBK [facility] Multivit/Folic Acid/Iron ( Vitamins (Sjr) -) 1 tab PO DAILY [facility] Senna (Senna -) 2 tab PO HS [facility] Last Admin: 09/23/17 22:08 Dose: Not Given Thiamine HCl (Vitamin B1 -) 100 mg PO HS [facility] Zolpidem Tartrate (Ambien -) 10 mg PO HS PRN PRN Reason: INSOMNIA ASSESSMENT/PLAN: 21yo man with PMH of T1DM, IVDU (heroine/cocaine), Hep C who p/w several days of fever, chills, sob and found to have elevated lactic acid and hyperglycemia possibly 2/2 to infection. #T1DM, sugars not well controlled overnight -Levemir 8U in AM + 30 HS -BGM/ISS ACHS #severe lactic acidosis, resolved -Infectious work-up neg thus far (BCx NGTD, Flu neg, UA neg) -ID consulted, d/c antibiotics today s/p Cefepime/Dapto x 4 days #CP/Sob with sinus tachycardia -CTA no e/o PE, 2D ECHO wnl -CT A/P - non-concerning -Cardiology consulted, input appreciated #lytic/sclerotic lesions in manubrium -f/u bone scan #h/o Hepatitis C, on no medication #Active IVDU -Dr. Manuel consulted -Suboxone daily FEN NS 75cc/hr lytes stable Diabetic Diet Lovenox 40mg SQ daily Dispo: m/s FULL code Visit type - Emergency Visit Emergency Visit: No - New Patient This patient is new to me today: No - Critical Care Critical Care patient: No
--- NOTE | 2017-09-24 11:55 | CON.CARD ---
Consult Consult Specialty:: Cardiology Referred by:: Hospitalist Medicine Reason for Consultation:: Septic emboli - History of Present Illness Chief Complaint: Chest pain and dyspnea History of Present Illness: 21 y/o Male IDDM recently discharged after signing out AMA after not completing antibiotic regime for bacterial endocarditis, represented with c/o fever, chest and abd pain, dyspnea and recent IVDA. Resumed back on abx regimen, bld cx NGTD , sxs improved, afebrile. - History Source History Provided By: Patient Limitations to Obtaining History: No Limitations - Past Medical History Pulmonary: Yes: Pneumonia Gastrointestinal: Yes: Other (Hep C) Infectious Disease: Yes: Other (HEP C) Psych: Yes: Addictions Endocrine: Yes: Diabetes Mellitus Additional Medical History: polysubstance use - Alcohol/Substance Use Hx Alcohol Use: No History of Substance Use: reports: Cocaine, Heroin, Marijuana - Smoking History Smoking history: Never smoked Have you smoked in the past 12 months: No Aproximately how many cigarettes per day: 20 - Social History Usual Living Arrangement: With Significant Other ADL: Independent Home Medications - Allergies Allergies/Adverse Reactions: Allergies Allergy/AdvReac Type Severity Reaction Status Date / Time fish derived Allergy Verified 09/20/17 20:39 fish Allergy Uncoded 09/20/17 20:39 - Home Medications Home Medications: Ambulatory Orders Insulin Aspart [Novolog] 100 unit SQ ASDIR 07/01/15 Insulin Glargine,Hum.rec.anlog [Lantus Solostar PEN -] 30 units SQ HS 07/01/15 Buprenorphine/Naloxone [Suboxone 8Mg/2Mg Sl Film -] 1 each SL DAILY #30 film MDD 1 08/29/17 Zolpidem Tartrate [Ambien] 10 mg PO HS 09/20/17 Family Disease History - Family Disease History Family Disease History: Other: Father (healthy), Mother (healthy), Brother (IDDM ) Review of Systems - Review of Systems Cardiovascular: reports: Chest Pain, Shortness of Breath Vital Signs: Vital Signs Temperature 98.4 F 09/24/17 09:05 Pulse Rate 102 H 09/24/17 09:05 Respiratory Rate 18 09/24/17 09:05 Blood Pressure 136/85 09/24/17 09:05 O2 Sat by Pulse Oximetry (%) 97 09/24/17 09:00 Constitutional: Yes: No Distress, Calm, Thin Neck: Yes: Supple Respiratory: Yes: Regular, CTA Bilaterally Gastrointestinal: Yes: Normal Bowel Sounds, Soft Cardiovascular: Yes: Regular Rate and Rhythm JVD: No Carotid Bruit: No Heart Sounds: Yes: S1, S2 Murmur: Yes: Systolic Murmur, Grade 1 Edema: No - Other Data Labs, Other Data: CBC, BMP 09/24/17 06:30 09/24/17 06:30 INR, PTT INR 0.90 (0.82-1.09) 09/20/17 21:22 ST @ 132 LAE, LVH Echo: Report Reviewed Ejection Fraction %: LVEF > or = 40 % Imaging - Results Cat Scan: Report Reviewed (Chest CT shows significantly improving pulm nodules c /w inflammatory/infectious etiologies Abd CT shows HSM without splenic infarcts) Assessment/Plan 09/21/2017 Echo: Borderline dilated with low normal LV fxn, mod MR, mild TR, no vegetation 1. Chest pain/shortness of breath with 2. H/o MRSA bacteremia with septic emboli left AMA without completing full antibiotic course 3. Type 1 DM 4. IVDU 5, Resolved lactic acidosis P: 1. Course of cefepime/daptomycin day4, monitor levels, per ID. 2. PEG deferred due to bacteremia clearance and clinical improvement 3. Suboxone, clonidine and substance abuse consult with Dr. Manuel. 4. DVT prophylaxis with lovenox 5. Thank you for consultative opportunity
--- NOTE | 2017-09-24 13:38 | MSN ---
Progress Note (short form) - Note Progress Note: SUBJECTIVE: Patient seen and examined this morning. Overnight patient had an elevated BG. At 2200 BG was 575. Patient received 14 units of novolog per sliding scale insulin order and a BNP was drawn. BNP did not demonstrate an anion gap. At 600 patient's BG was 135. Patient continues to have increases in heart rate to 130 bpm on the monitor with exertion. Patient continues to complain of intermittent sternal chest pressure that is worsened with deep inspiration. Otherwise he feels well and no longer has abdominal pain. OBJECTIVE: Vital Signs Period Temp Pulse Resp BP Sys/Nolan Pulse Ox Last 24 Hr 98.2 F-98.8 F 84-120 18-20 127-150/83-100 97-97 PHYSICAL EXAM GENERAL: Young male resting comfortably in bed HENT: EOMI, sclera anicteric, mucous membranes moist CARDIOVASCULAR: No JVD, regular rhythm tachycardic at 105 bpm S1/S2 without murmur LUNGS: Clear to auscultation b/l without wheezes or crackles ABDOMEN: Normoactive bowel sounds, non-tender, non-distended, spleen non- palpable EXTREMITIES: No edema, 2 + peripheral pulses UE/LE b/l INTEGUMENTARY: Healing scar on left forearm w/o erythema or induration, tattoos NEURO: CN II-XII grossly intact, gross sensation intact, normal speech Laboratory Results - last 24 hr 09/22/17 09/23/17 09/23/17 21:39 14:46 16:48 WBC RBC Hgb Hct MCV MCH MCHC RDW Plt Count MPV Neutrophils % Lymphocytes % Monocytes % Eosinophils % Basophils % ESR Sodium Potassium Chloride Carbon Dioxide Anion Gap BUN Creatinine Creat Clearance w eGFR POC Glucometer 432 139 198 Random Glucose Calcium Total Bilirubin AST ALT Alkaline Phosphatase C-Reactive Protein Total Protein Albumin 09/23/17 09/24/17 09/24/17 22:04 05:51 06:30 WBC 5.7 RBC 3.50 L Hgb 10.3 L Hct 30.5 L MCV 87.0 MCH 29.5 MCHC 33.9 RDW 16.2 H Plt Count 249 MPV 7.8 Neutrophils % 43.0 Lymphocytes % 43.4 H Monocytes % 7.3 Eosinophils % 5.6 H Basophils % 0.7 ESR Sodium Potassium Chloride Carbon Dioxide Anion Gap BUN Creatinine Creat Clearance w eGFR POC Glucometer 575 135 Random Glucose Calcium Total Bilirubin AST ALT Alkaline Phosphatase C-Reactive Protein Total Protein Albumin 09/24/17 09/24/17 09/24/17 06:30 06:30 11:26 WBC RBC Hgb Hct MCV MCH MCHC RDW Plt Count MPV Neutrophils % Lymphocytes % Monocytes % Eosinophils % Basophils % ESR 34 H Sodium 137 Potassium 3.8 Chloride 101 Carbon Dioxide 28 Anion Gap 8 BUN 21 H Creatinine 0.8 Creat Clearance w eGFR > 60 POC Glucometer 231 Random Glucose 160 H D Calcium 8.7 Total Bilirubin 0.4 AST 36 ALT 54 Alkaline Phosphatase 120 H C-Reactive Protein 0.3 Total Protein 7.1 Albumin 2.7 L ASSESSMENT/PLAN: 21 yr old male with history of IDDM, IVDA, untreated HepC, and recent admission for MRSA bacteremia presented to the ED with 4 days of chest pain and fever and was found to have hyperglycemia and lactic acidosis. #Hyperglycemia-At home patient admits to being non-compliant with insulin ( HbA1c of 9.4). Encouraged patient to maintain diabetic diet and not to eat jelly beans/chips/soda that his family brings. -BG QAC/HS -Increase Levemir to 10 units QAM and continue levemir 30 units QHS; continue insulin sliding scale #Lytic/sclerotic sternal lesion-CT demonstrated a lesion of the manubrium and given that patient continues to complain of sternal pain with inspiration and patient has a mild elevation of inflammatory markers (ESR 34 and Alk Phos 120), a bone scan was ordered to evaluate for possibility of osteomyelitis. #IV drug abuse-Patient was started on suboxone on prior admission (07/23) and will continue suboxone 8 mg/2mg. -Patient to follow-up with Dr. Manuel to discuss plan following discharge #Tachycardia-Patient intermittently tachycardic to 130 bpm. Baseline heart rate around 100 bpm. Transthoracic echo demonstrated mild mitral regurg and EF > 40% . Seen by cardiology who recommended deferring PEG as patient is not bacteremic. #Lactic jhyaoeuj-Gckbuqte-Poujiy acid trended down from 5.3 at time of admission to 1.9 (09/23). Most likely had been due to dehydration/hyperglycemia rather than to sepsis. Blood cultures/UA negative. Patient treated empirically with 4 days of Cefepime 2 g Q8H and daptomycin 560 mg QD. ABX have been discontinued per ID recommendation. #HepC-Patient has not been treated for HepC. LFTs within normal limits at this time. #ABD dqwr-pvprribs-BP demonstrated mild hepatosplenomegaly and retained fecal material. Patient given colace and senna. Patient does not complain of abdominal pain. #FEN -NS at 75 cc/hr -DVT ppx- Lovenox 40 units SQ -Diabetic diet #Dispo-pending results of bone scan
[2017-09-24] MEDS: SODIUM CHLORIDE 1,000 ML IV SCH (14:00)
[2017-09-24] MEDS ORDERED: cloNIDine HCL 0.1 MG TABLET PO ONE (14:30)
[2017-09-24 19:08] LABS: ANION GAP 7 (8-16); BLOOD UREA NITROGEN 26 mg/dL (7-18); CALCIUM 8.1 mg/dL (8.5-10.1); CHLORIDE 100 mmol/L (98-107); CO2 28 mmol/L (21-32); CREATININE 0.9 mg/dL (0.7-1.3); POTASSIUM 4.2 mmol/L (3.5-5.1); SODIUM 135 mmol/L (136-145)
[2017-09-24 19:15] LABS: GLUCOSE,RANDOM 452 mg/dL (74-106)
[2017-09-24] MEDS: THIAMINE HCL 100 MG TABLET (FP) PO SCH (21:00)
[2017-09-24] MEDS: SENNOSIDES 8.6MG TABLET (FP) PO SCH (21:01)
[2017-09-24] MEDS: ZOLPIDEM TARTRATE 5 MG TABLET PO PRN (21:01)
[2017-09-24] MEDS ORDERED: cloNIDine HCL 0.1 MG TABLET PO SCH (22:00)
[2017-09-25] MEDS: INSULIN SLIDING SCALE (NOVOLOG) 1 VIAL SQ SCH ×4 (06:09→22:55)
[2017-09-25 06:55] LABS: BASO % 0.7 % (0-2.0); EOS % 4.8 % (0-4.5); HEMATOCRIT 28.8 % (35.4-49); HEMOGLOBIN 9.8 GM/dL (11.7-16.9); LYMPH % 45.4 % (8-40); MCH 29.9 pg (25.7-33.7); MCHC 34.1 g/dl (32.0-35.9); MEAN CELL VOLUME 87.8 fl (80-96); MEAN PLT VOLUME 7.9 fl (7.5-11.1); MONO % 7.8 % (3.8-10.2); NEUT % 41.3 % (42.8-82.8); PLATELET COUNT 239 K/MM3 (134-434); RBC 3.28 M/mm3 (4.00-5.60); RDW 16.4 % (11.9-15.9)
[2017-09-25 07:22] LABS: ANION GAP 10 (8-16); BLOOD UREA NITROGEN 21 mg/dL (7-18); CALCIUM 8.4 mg/dL (8.5-10.1); CHLORIDE 101 mmol/L (98-107); CO2 28 mmol/L (21-32); GLUCOSE,RANDOM 199 mg/dL (74-106); POTASSIUM 4.1 mmol/L (3.5-5.1); SODIUM 139 mmol/L (136-145)
[2017-09-25 07:24] LABS: CREATININE 0.6 mg/dL (0.7-1.3)
--- NOTE | 2017-09-25 07:32 | PN ---
Progress Note (short form) - Note Progress Note: Chief Complaint: Events noted notes reviewed, reports chest pain with inspiration, unable to take a deep breath related to the above noted discomfort wcich he equates with dyspnea History of Present Illness: Seen and examined on telemetry. Events noted notes reviewed, reports chest pain with inspiration, unable to take a deep breath related to the above noted discomfort wcich he equates with dyspnea Off of antibiotics Echocardiography dated 09/21/2017 revealed borderline dilated with low normal LV function, moderate MR, mild TR and no vegetations Medications: Current Medications Buprenorphine/Naloxone (Suboxone 8mg/2mg Sl Film -) 1 each SL DAILY [facility] Last Admin: 09/24/17 09:33 Dose: 1 each Clonidine (Catapres -) 0.1 mg PO BID [facility] Last Admin: 09/24/17 21:00 Dose: 0.1 mg Docusate Sodium (Colace -) 100 mg PO BID [facility] Last Admin: 09/24/17 21:00 Dose: Not Given Enoxaparin Sodium (Lovenox -) 40 mg SQ DAILY [facility] Last Admin: 09/24/17 09:33 Dose: 40 mg Sodium Chloride (Normal Saline -) 1,000 mls @ 75 mls/hr IV ASDIR [facility] Last Admin: 09/24/17 14:00 Dose: 75 mls/hr Insulin Aspart (Novolog Vial Sliding Scale -) 1 vial SQ ACHS [facility] PRN Reason: Protocol Last Admin: 09/25/17 06:09 Dose: 2 units Insulin Detemir (Levemir Vial) 30 units SQ HS [facility] Last Admin: 09/24/17 21:00 Dose: 30 units Insulin Detemir (Levemir Vial) 10 units SQ ACBK [facility] Last Admin: 09/25/17 06:09 Dose: 10 units Multivit/Folic Acid/Iron ( Vitamins (Sjr) -) 1 tab PO DAILY [facility] Senna (Senna -) 2 tab PO HS [facility] Last Admin: 09/24/17 21:01 Dose: Not Given Thiamine HCl (Vitamin B1 -) 100 mg PO HS [facility] Last Admin: 09/24/17 21:00 Dose: 100 mg Zolpidem Tartrate (Ambien -) 10 mg PO HS PRN PRN Reason: INSOMNIA Last Admin: 09/24/17 21:01 Dose: 10 mg Review of Systems - Review of Systems Constitutional: No symptoms reported Respiratory: denies: Cough or Sputum Production Cardiovascular: As noted above Gastrointestinal: denies Nausea, Vomiting, Diarrhea, Constipation or Abdominal Pain Musculoskeletal: No symptoms reported Endocrine: Diabetes Mellitus Vital Signs: Last Vital Signs Temp Pulse Resp BP Pulse Ox 98.6 F 75 18 125/79 100 09/25/17 05:01 09/25/17 05:01 09/25/17 05:01 09/25/17 05:01 09/24/17 20:18 Intake & Output 09/22/17 09/23/17 09/24/17 09/25/17 23:59 23:59 23:59 23:59 Intake Total 2600 2975 1625 525 Balance 2600 2975 1625 525 Constitutional: No Distress, Calm, Thin Neck: Supple Negative JVD Cardiovascular: S1 S2 Regular Rate and Rhythm Grade 1/6 SM Respiratory: Clear to A&P Bilaterally Gastrointestinal: Soft Benign Normal Bowel Sounds Ext: No Edema Labs: CBC, BMP 09/25/17 06:30 Hepatic Panel Total Bilirubin 0.4 mg/dL (0.2-1.0) 09/24/17 06:30 AST 36 U/L (15-37) 09/24/17 06:30 ALT 54 U/L (12-78) 09/24/17 06:30 Alkaline Phosphatase 120 U/L (45-117) H 09/24/17 06:30 Albumin 2.7 g/dl (3.4-5.0) L 09/24/17 06:30 INR, PTT INR 0.90 (0.82-1.09) 09/20/17 21:22 Assessment/Plan ASSESSMENT: 1. Chest pain syndrome/shortness of breath, etiology remains unclear 2. History of MRSA bacteremia with septic emboli completed antibiotic course 3. DM 4. IV drug abuse, history 5. Lytic/sclerotic sternal lesion for further evalaution 6. Lactic acidosis, resolved PLAN: 1. Continue detox protocol 2. Since there is no evidence of active bacteremia, no clinical indications to proceed with PEG 3. Bone scan as planned 4. Counselled drug abuse abstinence 5. May be transferred to floor care from the cardiovascular point of view Lissa Garcia MD
--- NOTE | 2017-09-25 07:42 | PN ---
Physical Exam: SUBJECTIVE: Patient seen and examined. BGM elevated last night due to diet non- compliance; c/o of CP with deep inspiration unchanged. Denies fever, chills, abdominal pain. Eating and voiding well. OBJECTIVE: Vital Signs Period Temp Pulse Resp BP Sys/Nolan Pulse Ox Last 24 Hr 97.9 F-98.6 F 75-102 18-20 115-136/72-85 97-100 General: lying comfortably in bed, nad Heart: Tachycardia, regular rhythm, normal s1/s2, no m/r/g Chest: CTAB, no wheezing or rales appreciate Abdomen: soft, NTND, +bowel sounds MSK: mild ttp over sternum Extremities: wwp, no edema CBC, BMP 09/25/17 06:30 09/25/17 06:30 Hepatic Panel Total Bilirubin 0.4 mg/dL (0.2-1.0) 09/24/17 06:30 AST 36 U/L (15-37) 09/24/17 06:30 ALT 54 U/L (12-78) 09/24/17 06:30 Alkaline Phosphatase 120 U/L (45-117) H 09/24/17 06:30 Albumin 2.7 g/dl (3.4-5.0) L 09/24/17 06:30 Microbiology 09/20/17 21:22 Blood - Peripheral Venous Blood Culture - Preliminary NO GROWTH OBTAINED AFTER 96 HOURS, INCUBATION TO CONTINUE FOR 1 DAYS. 09/20/17 21:32 Blood - Peripheral Venous Blood Culture - Preliminary NO GROWTH OBTAINED AFTER 96 HOURS, INCUBATION TO CONTINUE FOR 1 DAYS. 09/21/17 12:30 Nares - Left Nares MRSA Screen - Final NO MRSA ISOLATED 09/21/17 12:30 Nares - Mrsa Screen - Right MRSA Screen - Final NO MRSA ISOLATED 09/20/17 21:45 Urine - Urine Clean Catch Urine Culture - Final NO GROWTH OBTAINED 09/20/17 21:22 Nasopharyngeal Swab Influenza Types A,B Antigen (THEA) - Final 09/20/17 21:22 Nasopharyngeal Swab - Final Active Medications Buprenorphine/Naloxone (Suboxone 8mg/2mg Sl Film -) 1 each SL DAILY [facility] Last Admin: 09/25/17 09:39 Dose: 1 each Clonidine (Catapres -) 0.1 mg PO BID PRN PRN Reason: WITHDRAWAL(CONT SUBST) Docusate Sodium (Colace -) 100 mg PO BID [facility] Last Admin: 09/25/17 09:39 Dose: 100 mg Enoxaparin Sodium (Lovenox -) 40 mg SQ DAILY [facility] Last Admin: 09/25/17 09:39 Dose: 40 mg Ibuprofen (Motrin -) 600 mg PO Q6H PRN PRN Reason: FEVER Insulin Aspart (Novolog Vial Sliding Scale -) 1 vial SQ ACHS [facility] PRN Reason: Protocol Last Admin: 09/25/17 11:18 Dose: 2 units Insulin Detemir (Levemir Vial) 30 units SQ HS [facility] Last Admin: 09/24/17 21:00 Dose: 30 units Insulin Detemir (Levemir Vial) 10 units SQ ACBK [facility] Last Admin: 09/25/17 06:09 Dose: 10 units Multivit/Folic Acid/Iron ( Vitamins (Sjr) -) 1 tab PO DAILY [facility] Last Admin: 09/25/17 09:39 Dose: 1 tab Senna (Senna -) 2 tab PO HS [facility] Last Admin: 09/24/17 21:01 Dose: Not Given Thiamine HCl (Vitamin B1 -) 100 mg PO HS [facility] Last Admin: 09/24/17 21:00 Dose: 100 mg Zolpidem Tartrate (Ambien -) 10 mg PO HS PRN PRN Reason: INSOMNIA Last Admin: 09/24/17 21:01 Dose: 10 mg ASSESSMENT/PLAN: 21yo man with PMH of T1DM, IVDU (heroine/cocaine), Hep C who p/w several days of fever, chills, sob and found to have elevated lactic acid and hyperglycemia possibly 2/2 to infection. #T1DM, sugars not well controlled PM -Reiterated importance of low carbohydrate diet adherence -Levemir 8U in AM + 30 HS -BGM/ISS ACHS #severe lactic acidosis, resolved -ID consulted, completed course of abx x 4day -Infectious work-up thus far (BCx NGTD, Flu neg, UA neg) #CP/Sob with sinus tachycardia -CTA no e/o PE, 2D ECHO wnl -CT A/P - non-concerning -Cardiology consulted, input noted; will d/c tele #lytic/sclerotic lesions in manubrium -f/u bone scan planned for today #h/o Hepatitis C, on no medication #Active IVDU -Dr. Manuel consulted -Suboxone daily -Clonidine PRN for sinus tachycardia FEN PO intake lytes stable Diabetic Diet Lovenox 40mg SQ daily Dispo: transfer to /, discharge home today following bone scan FULL code Visit type - Emergency Visit Emergency Visit: No - New Patient This patient is new to me today: No - Critical Care Critical Care patient: No
[2017-09-25] MEDS ORDERED: PT OWN MED DRAWER 7, Y5N ONE (09:17)
[2017-09-25] MEDS ORDERED: cloNIDine HCL 0.1 MG TABLET PO PRN (09:27)
[2017-09-25] MEDS: DOCUSATE SODIUM 100 MG CAPSULE (FP) PO SCH ×2 (09:39→21:51)
[2017-09-25] MEDS: BUPRENORPHINE/NALOXONE 8 MG/2 MG FILM PACKET SL SCH (09:39)
[2017-09-25] MEDS ORDERED: IBUPROFEN 600 MG TABLET (FP) PO PRN (09:39)
[2017-09-25] MEDS: ENOXAPARIN NA (PORCINE) 40 MG/0.4 ML DISP.SYRIN SQ SCH (09:39)
[2017-09-25] MEDS ORDERED: PRENATAL VITAMINS W/ FOLIC ACID TABLET (FP) PO SCH (10:00)
--- NOTE | 2017-09-25 10:39 | PN ---
[facility] Progress Note (SOAP) Subjective: pateint c/o tooth avery, otehrwise well, no withdrwal sx readyfor discharge Objective: 09/25/17 10:38 Vital Signs - 24 hr 09/24/17 09/24/17 09/24/17 14:00 18:00 20:18 Temperature 98.5 F 98.1 F 97.9 F Pulse Rate 91 H 84 84 Respiratory 20 20 18 Rate Blood Pressure 119/82 115/72 128/80 O2 Sat by Pulse 100 Oximetry (%) 09/25/17 09/25/17 09/25/17 02:00 05:01 08:19 Temperature 98.4 F 98.6 F 98.6 F Pulse Rate 88 75 79 Respiratory 20 18 18 Rate Blood Pressure 127/76 125/79 124/79 O2 Sat by Pulse Oximetry (%) 09/25/17 08:22 Temperature Pulse Rate Respiratory 18 Rate Blood Pressure O2 Sat by Pulse 100 Oximetry (%) Laboratory Tests 09/20/17 09/20/17 09/20/17 21:22 21:22 21:22 WBC RBC Hgb Hct MCV MCH MCHC RDW Plt Count MPV Neutrophils % Lymphocytes % Monocytes % Eosinophils % Basophils % ESR PT with INR 10.20 INR 0.90 PTT (Actin FS) 28.7 D-Dimer Puncture Site ABG pH ABG pCO2 at Pt Temp ABG pO2 at Pt Temp ABG HCO3 ABG O2 Sat (Measured) ABG O2 Content ABG Base Excess Markus Test Carboxyhemoglobin Methemoglobin O2 Delivery Device Oxygen Flow Rate Sodium 134 L Potassium 3.9 Chloride 97 L Carbon Dioxide 23 Anion Gap 14 BUN 29 H Creatinine 1.4 H D Creat Clearance w eGFR > 60 POC Glucometer Random Glucose 388 H* Hemoglobin A1c % Lactic Acid 5.3 H* Calcium 9.2 Phosphorus Magnesium 1.9 D Total Bilirubin 0.5 D AST 41 H D ALT 86 H Alkaline Phosphatase 161 H Creatine Kinase 82 Troponin I 0.08 H D C-Reactive Protein B-Natriuretic Peptide Total Protein 8.8 H Albumin 3.1 L D Lipase 156 TSH Urine Color Urine Appearance Urine pH Ur Specific [place] Urine Protein Urine Glucose (UA) Urine Ketones Urine Blood Urine Nitrite Urine Bilirubin Urine Urobilinogen Ur Leukocyte Esterase Urine WBC (Auto) Urine RBC (Auto) Ur Epithelial Cells Opiates Screen Methadone Screen Barbiturate Screen Phencyclidine Screen Ur Amphetamines Screen MDMA (Ecstasy) Screen Benzodiazepines Screen Cocaine Screen U Marijuana (THC) Screen Acetone, Qual 09/20/17 09/20/17 09/20/17 21:22 21:22 21:22 WBC RBC Hgb Hct MCV MCH MCHC RDW Plt Count MPV Neutrophils % Lymphocytes % Monocytes % Eosinophils % Basophils % ESR PT with INR INR PTT (Actin FS) D-Dimer 653 H Puncture Site ABG pH ABG pCO2 at Pt Temp ABG pO2 at Pt Temp ABG HCO3 ABG O2 Sat (Measured) ABG O2 Content ABG Base Excess Markus Test Carboxyhemoglobin Methemoglobin O2 Delivery Device Oxygen Flow Rate Sodium Potassium Chloride Carbon Dioxide Anion Gap BUN Creatinine Creat Clearance w eGFR POC Glucometer Random Glucose Hemoglobin A1c % Lactic Acid Calcium Phosphorus Magnesium Total Bilirubin AST ALT Alkaline Phosphatase Creatine Kinase Troponin I C-Reactive Protein B-Natriuretic Peptide Total Protein Albumin Lipase TSH 0.36 D Urine Color Urine Appearance Urine pH Ur Specific [place] Urine Protein Urine Glucose (UA) Urine Ketones Urine Blood Urine Nitrite Urine Bilirubin Urine Urobilinogen Ur Leukocyte Esterase Urine WBC (Auto) Urine RBC (Auto) Ur Epithelial Cells Opiates Screen Methadone Screen Barbiturate Screen Phencyclidine Screen Ur Amphetamines Screen MDMA (Ecstasy) Screen Benzodiazepines Screen Cocaine Screen U Marijuana (THC) Screen Acetone, Qual Positive small 1+ 09/20/17 09/20/17 09/20/17 21:32 21:32 21:45 WBC 9.7 D RBC 4.14 D Hgb 12.2 D Hct 35.6 D MCV 85.8 MCH 29.5 MCHC 34.4 RDW 16.5 H Plt Count 399 MPV 7.7 Neutrophils % 71.0 Lymphocytes % 21.9 D Monocytes % 5.6 Eosinophils % 0.5 Basophils % 1.0 ESR PT with INR INR PTT (Actin FS) D-Dimer Puncture Site ABG pH ABG pCO2 at Pt Temp ABG pO2 at Pt Temp ABG HCO3 ABG O2 Sat (Measured) ABG O2 Content ABG Base Excess Markus Test Carboxyhemoglobin Methemoglobin O2 Delivery Device Oxygen Flow Rate Sodium Potassium Chloride Carbon Dioxide Anion Gap BUN Creatinine Creat Clearance w eGFR POC Glucometer Random Glucose Hemoglobin A1c % Lactic Acid Calcium Phosphorus Magnesium Total Bilirubin AST ALT Alkaline Phosphatase Creatine Kinase Troponin I C-Reactive Protein B-Natriuretic Peptide 614 H Total Protein Albumin Lipase TSH Urine Color Straw Urine Appearance Clear Urine pH 6.0 Ur Specific [place] 1.027 Urine Protein 2+ H Urine Glucose (UA) 3+ H Urine Ketones Trace H Urine Blood 1+ H Urine Nitrite Negative Urine Bilirubin Negative Urine Urobilinogen Negative Ur Leukocyte Esterase Negative Urine WBC (Auto) <1 Urine RBC (Auto) 2 Ur Epithelial Cells Rare Opiates Screen Methadone Screen Barbiturate Screen Phencyclidine Screen Ur Amphetamines Screen MDMA (Ecstasy) Screen Benzodiazepines Screen Cocaine Screen U Marijuana (THC) Screen Acetone, Qual 09/20/17 09/20/17 09/20/17 21:45 23:01 23:27 WBC RBC Hgb Hct MCV MCH MCHC RDW Plt Count MPV Neutrophils % Lymphocytes % Monocytes % Eosinophils % Basophils % ESR PT with INR INR PTT (Actin FS) D-Dimer Puncture Site ABG pH ABG pCO2 at Pt Temp ABG pO2 at Pt Temp ABG HCO3 ABG O2 Sat (Measured) ABG O2 Content ABG Base Excess Markus Test Carboxyhemoglobin Methemoglobin O2 Delivery Device Oxygen Flow Rate Sodium 137 Potassium 4.1 Chloride 102 Carbon Dioxide 23 Anion Gap 12 BUN 25 H Creatinine 1.2 Creat Clearance w eGFR > 60 POC Glucometer Random Glucose 282 H D Hemoglobin A1c % Lactic Acid 4.7 H* Calcium 8.5 Phosphorus Magnesium Total Bilirubin 0.5 AST 29 D ALT 73 Alkaline Phosphatase 131 H Creatine Kinase Troponin I C-Reactive Protein B-Natriuretic Peptide Total Protein 7.9 Albumin 2.9 L Lipase TSH Urine Color Urine Appearance Urine pH Ur Specific [place] Urine Protein Urine Glucose (UA) Urine Ketones Urine Blood Urine Nitrite Urine Bilirubin Urine Urobilinogen Ur Leukocyte Esterase Urine WBC (Auto) Urine RBC (Auto) Ur Epithelial Cells Opiates Screen Negative Methadone Screen Negative Barbiturate Screen Negative Phencyclidine Screen Negative Ur Amphetamines Screen Positive MDMA (Ecstasy) Screen Negative Benzodiazepines Screen Negative Cocaine Screen Positive U Marijuana (THC) Screen Negative Acetone, Qual 09/20/17 09/21/17 09/21/17 23:32 03:40 05:21 WBC 7.6 RBC 3.27 L D Hgb 9.8 L D Hct 28.8 L D MCV 87.8 MCH 29.8 MCHC 34.0 RDW 16.6 H Plt Count 308 D MPV 7.7 Neutrophils % 51.6 D Lymphocytes % 40.1 H D Monocytes % 6.6 Eosinophils % 1.3 D Basophils % 0.4 ESR PT with INR INR PTT (Actin FS) D-Dimer Puncture Site Right radial ABG pH 7.33 L ABG pCO2 at Pt Temp 44.1 ABG pO2 at Pt Temp 78.6 L D ABG HCO3 22.8 ABG O2 Sat (Measured) 94.9 ABG O2 Content 13.4 L ABG Base Excess -2.5 L Markus Test Positive Carboxyhemoglobin 2.7 H Methemoglobin 1.1 O2 Delivery Device Room air Oxygen Flow Rate No Sodium Potassium Chloride Carbon Dioxide Anion Gap BUN Creatinine Creat Clearance w eGFR POC Glucometer Random Glucose Hemoglobin A1c % Lactic Acid 3.4 H* Calcium Phosphorus Magnesium Total Bilirubin AST ALT Alkaline Phosphatase Creatine Kinase Troponin I C-Reactive Protein B-Natriuretic Peptide Total Protein Albumin Lipase TSH Urine Color Urine Appearance Urine pH Ur Specific [place] Urine Protein Urine Glucose (UA) Urine Ketones Urine Blood Urine Nitrite Urine Bilirubin Urine Urobilinogen Ur Leukocyte Esterase Urine WBC (Auto) Urine RBC (Auto) Ur Epithelial Cells Opiates Screen Methadone Screen Barbiturate Screen Phencyclidine Screen Ur Amphetamines Screen MDMA (Ecstasy) Screen Benzodiazepines Screen Cocaine Screen U Marijuana (THC) Screen Acetone, Qual 09/21/17 09/21/17 09/21/17 05:21 05:21 05:21 WBC RBC Hgb Hct MCV MCH MCHC RDW Plt Count MPV Neutrophils % Lymphocytes % Monocytes % Eosinophils % Basophils % ESR PT with INR INR PTT (Actin FS) D-Dimer Puncture Site ABG pH ABG pCO2 at Pt Temp ABG pO2 at Pt Temp ABG HCO3 ABG O2 Sat (Measured) ABG O2 Content ABG Base Excess Markus Test Carboxyhemoglobin Methemoglobin O2 Delivery Device Oxygen Flow Rate Sodium 139 139 Potassium 4.9 4.9 Chloride 109 H 111 H Carbon Dioxide 21 21 Anion Gap 9 7 L BUN 19 H D 19 H Creatinine 1.0 1.0 Creat Clearance w eGFR > 60 POC Glucometer Random Glucose 259 H 262 H Hemoglobin A1c % 8.4 H D Lactic Acid Calcium 7.9 L 7.8 L Phosphorus 2.9 D Magnesium 1.8 Total Bilirubin 0.4 AST 26 ALT 65 Alkaline Phosphatase 116 Creatine Kinase 63 Troponin I 0.08 H C-Reactive Protein B-Natriuretic Peptide Total Protein 7.0 Albumin 2.6 L Lipase TSH Urine Color Urine Appearance Urine pH Ur Specific [place] Urine Protein Urine Glucose (UA) Urine Ketones Urine Blood Urine Nitrite Urine Bilirubin Urine Urobilinogen Ur Leukocyte Esterase Urine WBC (Auto) Urine RBC (Auto) Ur Epithelial Cells Opiates Screen Methadone Screen Barbiturate Screen Phencyclidine Screen Ur Amphetamines Screen MDMA (Ecstasy) Screen Benzodiazepines Screen Cocaine Screen U Marijuana (THC) Screen Acetone, Qual 09/21/17 09/21/17 09/21/17 05:21 05:21 05:21 WBC RBC Hgb Hct MCV MCH MCHC RDW Plt Count MPV Neutrophils % Lymphocytes % Monocytes % Eosinophils % Basophils % ESR 36 H PT with INR INR PTT (Actin FS) D-Dimer Puncture Site ABG pH ABG pCO2 at Pt Temp ABG pO2 at Pt Temp ABG HCO3 ABG O2 Sat (Measured) ABG O2 Content ABG Base Excess Markus Test Carboxyhemoglobin Methemoglobin O2 Delivery Device Oxygen Flow Rate Sodium Cancelled Potassium Cancelled Chloride Cancelled Carbon Dioxide Cancelled Anion Gap Cancelled BUN Cancelled Creatinine Cancelled Creat Clearance w eGFR POC Glucometer Random Glucose Cancelled Hemoglobin A1c % 9.4 H D Lactic Acid Calcium Cancelled Phosphorus Magnesium Total Bilirubin AST ALT Alkaline Phosphatase Creatine Kinase Troponin I Cancelled C-Reactive Protein B-Natriuretic Peptide Total Protein Albumin Lipase TSH Urine Color Urine Appearance Urine pH Ur Specific [place] Urine Protein Urine Glucose (UA) Urine Ketones Urine Blood Urine Nitrite Urine Bilirubin Urine Urobilinogen Ur Leukocyte Esterase Urine WBC (Auto) Urine RBC (Auto) Ur Epithelial Cells Opiates Screen Methadone Screen Barbiturate Screen Phencyclidine Screen Ur Amphetamines Screen MDMA (Ecstasy) Screen Benzodiazepines Screen Cocaine Screen U Marijuana (THC) Screen Acetone, Qual 09/21/17 09/21/17 09/21/17 05:48 05:55 12:37 WBC RBC Hgb Hct MCV MCH MCHC RDW Plt Count MPV Neutrophils % Lymphocytes % Monocytes % Eosinophils % Basophils % ESR PT with INR INR PTT (Actin FS) D-Dimer Puncture Site ABG pH ABG pCO2 at Pt Temp ABG pO2 at Pt Temp ABG HCO3 ABG O2 Sat (Measured) ABG O2 Content ABG Base Excess Markus Test Carboxyhemoglobin Methemoglobin O2 Delivery Device Oxygen Flow Rate Sodium Potassium Chloride Carbon Dioxide Anion Gap BUN Creatinine Creat Clearance w eGFR POC Glucometer [phone] Random Glucose Hemoglobin A1c % Lactic Acid 2.7 H* Calcium Phosphorus Magnesium Total Bilirubin AST ALT Alkaline Phosphatase Creatine Kinase Troponin I C-Reactive Protein B-Natriuretic Peptide Total Protein Albumin Lipase TSH Urine Color Urine Appearance Urine pH Ur Specific [place] Urine Protein Urine Glucose (UA) Urine Ketones Urine Blood Urine Nitrite Urine Bilirubin Urine Urobilinogen Ur Leukocyte Esterase Urine WBC (Auto) Urine RBC (Auto) Ur Epithelial Cells Opiates Screen Methadone Screen Barbiturate Screen Phencyclidine Screen Ur Amphetamines Screen MDMA (Ecstasy) Screen Benzodiazepines Screen Cocaine Screen U Marijuana (THC) Screen Acetone, Qual 09/21/17 09/21/17 09/22/17 17:45 22:11 06:05 WBC RBC Hgb Hct MCV MCH MCHC RDW Plt Count MPV Neutrophils % Lymphocytes % Monocytes % Eosinophils % Basophils % ESR PT with INR INR PTT (Actin FS) D-Dimer Puncture Site ABG pH ABG pCO2 at Pt Temp ABG pO2 at Pt Temp ABG HCO3 ABG O2 Sat (Measured) ABG O2 Content ABG Base Excess Markus Test Carboxyhemoglobin Methemoglobin O2 Delivery Device Oxygen Flow Rate Sodium Potassium Chloride Carbon Dioxide Anion Gap BUN Creatinine Creat Clearance w eGFR POC Glucometer 210 355 166 Random Glucose Hemoglobin A1c % Lactic Acid Calcium Phosphorus Magnesium Total Bilirubin AST ALT Alkaline Phosphatase Creatine Kinase Troponin I C-Reactive Protein B-Natriuretic Peptide Total Protein Albumin Lipase TSH Urine Color Urine Appearance Urine pH Ur Specific [place] Urine Protein Urine Glucose (UA) Urine Ketones Urine Blood Urine Nitrite Urine Bilirubin Urine Urobilinogen Ur Leukocyte Esterase Urine WBC (Auto) Urine RBC (Auto) Ur Epithelial Cells Opiates Screen Methadone Screen Barbiturate Screen Phencyclidine Screen Ur Amphetamines Screen MDMA (Ecstasy) Screen Benzodiazepines Screen Cocaine Screen U Marijuana (THC) Screen Acetone, Qual 09/22/17 09/22/17 09/22/17 06:30 06:30 06:30 WBC 5.4 RBC 3.43 L Hgb 10.1 L Hct 30.3 L MCV 88.3 MCH 29.3 MCHC 33.2 RDW 16.4 H Plt Count 274 MPV 7.8 Neutrophils % 42.3 L Lymphocytes % 46.1 H Monocytes % 7.0 Eosinophils % 3.7 D Basophils % 0.9 ESR PT with INR INR PTT (Actin FS) D-Dimer Puncture Site ABG pH ABG pCO2 at Pt Temp ABG pO2 at Pt Temp ABG HCO3 ABG O2 Sat (Measured) ABG O2 Content ABG Base Excess Markus Test Carboxyhemoglobin Methemoglobin O2 Delivery Device Oxygen Flow Rate Sodium 140 Potassium 4.2 Chloride 107 Carbon Dioxide 24 Anion Gap 9 BUN 16 Creatinine 0.8 Creat Clearance w eGFR > 60 POC Glucometer Random Glucose 215 H Hemoglobin A1c % Lactic Acid 1.9 Calcium 8.3 L Phosphorus Magnesium Total Bilirubin 0.4 AST 31 ALT 57 Alkaline Phosphatase 131 H Creatine Kinase Troponin I C-Reactive Protein B-Natriuretic Peptide Total Protein 6.9 Albumin 2.5 L Lipase TSH Urine Color Urine Appearance Urine pH Ur Specific [place] Urine Protein Urine Glucose (UA) Urine Ketones Urine Blood Urine Nitrite Urine Bilirubin Urine Urobilinogen Ur Leukocyte Esterase Urine WBC (Auto) Urine RBC (Auto) Ur Epithelial Cells Opiates Screen Methadone Screen Barbiturate Screen Phencyclidine Screen Ur Amphetamines Screen MDMA (Ecstasy) Screen Benzodiazepines Screen Cocaine Screen U Marijuana (THC) Screen Acetone, Qual 09/22/17 09/22/17 09/22/17 11:46 16:49 21:39 WBC RBC Hgb Hct MCV MCH MCHC RDW Plt Count MPV Neutrophils % Lymphocytes % Monocytes % Eosinophils % Basophils % ESR PT with INR INR PTT (Actin FS) D-Dimer Puncture Site ABG pH ABG pCO2 at Pt Temp ABG pO2 at Pt Temp ABG HCO3 ABG O2 Sat (Measured) ABG O2 Content ABG Base Excess Markus Test Carboxyhemoglobin Methemoglobin O2 Delivery Device Oxygen Flow Rate Sodium Potassium Chloride Carbon Dioxide Anion Gap BUN Creatinine Creat Clearance w eGFR POC Glucometer 176 200 432 Random Glucose Hemoglobin A1c % Lactic Acid Calcium Phosphorus Magnesium Total Bilirubin AST ALT Alkaline Phosphatase Creatine Kinase Troponin I C-Reactive Protein B-Natriuretic Peptide Total Protein Albumin Lipase TSH Urine Color Urine Appearance Urine pH Ur Specific [place] Urine Protein Urine Glucose (UA) Urine Ketones Urine Blood Urine Nitrite Urine Bilirubin Urine Urobilinogen Ur Leukocyte Esterase Urine WBC (Auto) Urine RBC (Auto) Ur Epithelial Cells Opiates Screen Methadone Screen Barbiturate Screen Phencyclidine Screen Ur Amphetamines Screen MDMA (Ecstasy) Screen Benzodiazepines Screen Cocaine Screen U Marijuana (THC) Screen Acetone, Qual 09/22/17 09/23/17 09/23/17 22:00 02:00 06:30 WBC 5.0 RBC 3.53 L Hgb 10.5 L Hct 30.7 L MCV 87.2 MCH 29.8 MCHC 34.2 RDW 16.0 H Plt Count 255 MPV 7.9 Neutrophils % 46.7 Lymphocytes % 39.4 Monocytes % 7.5 Eosinophils % 5.5 H Basophils % 0.9 ESR PT with INR INR PTT (Actin FS) D-Dimer Puncture Site ABG pH ABG pCO2 at Pt Temp ABG pO2 at Pt Temp ABG HCO3 ABG O2 Sat (Measured) ABG O2 Content ABG Base Excess Markus Test Carboxyhemoglobin Methemoglobin O2 Delivery Device Oxygen Flow Rate Sodium 133 L 137 Potassium 4.9 4.0 Chloride 101 101 Carbon Dioxide 26 27 Anion Gap 6 L 9 BUN 23 H D 21 H Creatinine 0.9 1.1 D Creat Clearance w eGFR POC Glucometer Random Glucose 411 H* D 360 H* Hemoglobin A1c % Lactic Acid Calcium 7.9 L 8.7 Phosphorus Magnesium Total Bilirubin AST ALT Alkaline Phosphatase Creatine Kinase Troponin I C-Reactive Protein B-Natriuretic Peptide Total Protein Albumin Lipase TSH Urine Color Urine Appearance Urine pH Ur Specific [place] Urine Protein Urine Glucose (UA) Urine Ketones Urine Blood Urine Nitrite Urine Bilirubin Urine Urobilinogen Ur Leukocyte Esterase Urine WBC (Auto) Urine RBC (Auto) Ur Epithelial Cells Opiates Screen Methadone Screen Barbiturate Screen Phencyclidine Screen Ur Amphetamines Screen MDMA (Ecstasy) Screen Benzodiazepines Screen Cocaine Screen U Marijuana (THC) Screen Acetone, Qual 09/23/17 09/23/17 09/23/17 06:30 06:35 10:28 WBC RBC Hgb Hct MCV MCH MCHC RDW Plt Count MPV Neutrophils % Lymphocytes % Monocytes % Eosinophils % Basophils % ESR PT with INR INR PTT (Actin FS) D-Dimer Puncture Site ABG pH ABG pCO2 at Pt Temp ABG pO2 at Pt Temp ABG HCO3 ABG O2 Sat (Measured) ABG O2 Content ABG Base Excess Markus Test Carboxyhemoglobin Methemoglobin O2 Delivery Device Oxygen Flow Rate Sodium 139 Potassium 4.1 Chloride 103 Carbon Dioxide 26 Anion Gap 10 BUN 21 H Creatinine 0.8 D Creat Clearance w eGFR POC Glucometer 187 337 Random Glucose 235 H D Hemoglobin A1c % Lactic Acid Calcium 8.7 Phosphorus 4.1 D Magnesium 1.8 Total Bilirubin AST ALT Alkaline Phosphatase Creatine Kinase Troponin I C-Reactive Protein B-Natriuretic Peptide Total Protein Albumin Lipase TSH Urine Color Urine Appearance Urine pH Ur Specific [place] Urine Protein Urine Glucose (UA) Urine Ketones Urine Blood Urine Nitrite Urine Bilirubin Urine Urobilinogen Ur Leukocyte Esterase Urine WBC (Auto) Urine RBC (Auto) Ur Epithelial Cells Opiates Screen Methadone Screen Barbiturate Screen Phencyclidine Screen Ur Amphetamines Screen MDMA (Ecstasy) Screen Benzodiazepines Screen Cocaine Screen U Marijuana (THC) Screen Acetone, Qual 09/23/17 09/23/17 09/23/17 14:46 16:48 22:04 WBC RBC Hgb Hct MCV MCH MCHC RDW Plt Count MPV Neutrophils % Lymphocytes % Monocytes % Eosinophils % Basophils % ESR PT with INR INR PTT (Actin FS) D-Dimer Puncture Site ABG pH ABG pCO2 at Pt Temp ABG pO2 at Pt Temp ABG HCO3 ABG O2 Sat (Measured) ABG O2 Content ABG Base Excess Markus Test Carboxyhemoglobin Methemoglobin O2 Delivery Device Oxygen Flow Rate Sodium Potassium Chloride Carbon Dioxide Anion Gap BUN Creatinine Creat Clearance w eGFR POC Glucometer 139 198 575 Random Glucose Hemoglobin A1c % Lactic Acid Calcium Phosphorus Magnesium Total Bilirubin AST ALT Alkaline Phosphatase Creatine Kinase Troponin I C-Reactive Protein B-Natriuretic Peptide Total Protein Albumin Lipase TSH Urine Color Urine Appearance Urine pH Ur Specific [place] Urine Protein Urine Glucose (UA) Urine Ketones Urine Blood Urine Nitrite Urine Bilirubin Urine Urobilinogen Ur Leukocyte Esterase Urine WBC (Auto) Urine RBC (Auto) Ur Epithelial Cells Opiates Screen Methadone Screen Barbiturate Screen Phencyclidine Screen Ur Amphetamines Screen MDMA (Ecstasy) Screen Benzodiazepines Screen Cocaine Screen U Marijuana (THC) Screen Acetone, Qual 09/24/17 09/24/17 09/24/17 05:51 06:30 06:30 WBC 5.7 RBC 3.50 L Hgb 10.3 L Hct 30.5 L MCV 87.0 MCH 29.5 MCHC 33.9 RDW 16.2 H Plt Count 249 MPV 7.8 Neutrophils % 43.0 Lymphocytes % 43.4 H Monocytes % 7.3 Eosinophils % 5.6 H Basophils % 0.7 ESR PT with INR INR PTT (Actin FS) D-Dimer Puncture Site ABG pH ABG pCO2 at Pt Temp ABG pO2 at Pt Temp ABG HCO3 ABG O2 Sat (Measured) ABG O2 Content ABG Base Excess Markus Test Carboxyhemoglobin Methemoglobin O2 Delivery Device Oxygen Flow Rate Sodium 137 Potassium 3.8 Chloride 101 Carbon Dioxide 28 Anion Gap 8 BUN 21 H Creatinine 0.8 Creat Clearance w eGFR > 60 POC Glucometer 135 Random Glucose 160 H D Hemoglobin A1c % Lactic Acid Calcium 8.7 Phosphorus Magnesium Total Bilirubin 0.4 AST 36 ALT 54 Alkaline Phosphatase 120 H Creatine Kinase Troponin I C-Reactive Protein 0.3 B-Natriuretic Peptide Total Protein 7.1 Albumin 2.7 L Lipase TSH Urine Color Urine Appearance Urine pH Ur Specific [place] Urine Protein Urine Glucose (UA) Urine Ketones Urine Blood Urine Nitrite Urine Bilirubin Urine Urobilinogen Ur Leukocyte Esterase Urine WBC (Auto) Urine RBC (Auto) Ur Epithelial Cells Opiates Screen Methadone Screen Barbiturate Screen Phencyclidine Screen Ur Amphetamines Screen MDMA (Ecstasy) Screen Benzodiazepines Screen Cocaine Screen U Marijuana (THC) Screen Acetone, Qual 09/24/17 09/24/17 09/24/17 06:30 11:26 14:41 WBC RBC Hgb Hct MCV MCH MCHC RDW Plt Count MPV Neutrophils % Lymphocytes % Monocytes % Eosinophils % Basophils % ESR 34 H PT with INR INR PTT (Actin FS) D-Dimer Puncture Site ABG pH ABG pCO2 at Pt Temp ABG pO2 at Pt Temp ABG HCO3 ABG O2 Sat (Measured) ABG O2 Content ABG Base Excess Markus Test Carboxyhemoglobin Methemoglobin O2 Delivery Device Oxygen Flow Rate Sodium Potassium Chloride Carbon Dioxide Anion Gap BUN Creatinine Creat Clearance w eGFR POC Glucometer 231 170 Random Glucose Hemoglobin A1c % Lactic Acid Calcium Phosphorus Magnesium Total Bilirubin AST ALT Alkaline Phosphatase Creatine Kinase Troponin I C-Reactive Protein B-Natriuretic Peptide Total Protein Albumin Lipase TSH Urine Color Urine Appearance Urine pH Ur Specific [place] Urine Protein Urine Glucose (UA) Urine Ketones Urine Blood Urine Nitrite Urine Bilirubin Urine Urobilinogen Ur Leukocyte Esterase Urine WBC (Auto) Urine RBC (Auto) Ur Epithelial Cells Opiates Screen Methadone Screen Barbiturate Screen Phencyclidine Screen Ur Amphetamines Screen MDMA (Ecstasy) Screen Benzodiazepines Screen Cocaine Screen U Marijuana (THC) Screen Acetone, Qual 09/24/17 09/24/17 09/25/17 17:59 20:54 05:00 WBC RBC Hgb Hct MCV MCH MCHC RDW Plt Count MPV Neutrophils % Lymphocytes % Monocytes % Eosinophils % Basophils % ESR PT with INR INR PTT (Actin FS) D-Dimer Puncture Site ABG pH ABG pCO2 at Pt Temp ABG pO2 at Pt Temp ABG HCO3 ABG O2 Sat (Measured) ABG O2 Content ABG Base Excess Markus Test Carboxyhemoglobin Methemoglobin O2 Delivery Device Oxygen Flow Rate Sodium 135 L Potassium 4.2 Chloride 100 Carbon Dioxide 28 Anion Gap 7 L BUN 26 H D Creatinine 0.9 Creat Clearance w eGFR POC Glucometer 323 200 Random Glucose 452 H* D Hemoglobin A1c % Lactic Acid Calcium 8.1 L Phosphorus Magnesium Total Bilirubin AST ALT Alkaline Phosphatase Creatine Kinase Troponin I C-Reactive Protein B-Natriuretic Peptide Total Protein Albumin Lipase TSH Urine Color Urine Appearance Urine pH Ur Specific [place] Urine Protein Urine Glucose (UA) Urine Ketones Urine Blood Urine Nitrite Urine Bilirubin Urine Urobilinogen Ur Leukocyte Esterase Urine WBC (Auto) Urine RBC (Auto) Ur Epithelial Cells Opiates Screen Methadone Screen Barbiturate Screen Phencyclidine Screen Ur Amphetamines Screen MDMA (Ecstasy) Screen Benzodiazepines Screen Cocaine Screen U Marijuana (THC) Screen Acetone, Qual 09/25/17 09/25/17 06:30 06:30 WBC 6.0 RBC 3.28 L Hgb 9.8 L Hct 28.8 L MCV 87.8 MCH 29.9 MCHC 34.1 RDW 16.4 H Plt Count 239 MPV 7.9 Neutrophils % 41.3 L Lymphocytes % 45.4 H Monocytes % 7.8 Eosinophils % 4.8 H Basophils % 0.7 ESR PT with INR INR PTT (Actin FS) D-Dimer Puncture Site ABG pH ABG pCO2 at Pt Temp ABG pO2 at Pt Temp ABG HCO3 ABG O2 Sat (Measured) ABG O2 Content ABG Base Excess Markus Test Carboxyhemoglobin Methemoglobin O2 Delivery Device Oxygen Flow Rate Sodium 139 Potassium 4.1 Chloride 101 Carbon Dioxide 28 Anion Gap 10 BUN 21 H Creatinine 0.6 L D Creat Clearance w eGFR POC Glucometer Random Glucose 199 H D Hemoglobin A1c % Lactic Acid Calcium 8.4 L Phosphorus Magnesium Total Bilirubin AST ALT Alkaline Phosphatase Creatine Kinase Troponin I C-Reactive Protein B-Natriuretic Peptide Total Protein Albumin Lipase TSH Urine Color Urine Appearance Urine pH Ur Specific [place] Urine Protein Urine Glucose (UA) Urine Ketones Urine Blood Urine Nitrite Urine Bilirubin Urine Urobilinogen Ur Leukocyte Esterase Urine WBC (Auto) Urine RBC (Auto) Ur Epithelial Cells Opiates Screen Methadone Screen Barbiturate Screen Phencyclidine Screen Ur Amphetamines Screen MDMA (Ecstasy) Screen Benzodiazepines Screen Cocaine Screen U Marijuana (THC) Screen Acetone, Qual hyperglycemia Assessment: 09/25/17 10:38 oud, severe, denies recent idu cont subooen prescription sent, f/u [facility]
--- NOTE | 2017-09-25 12:42 | PN ---
Teaching Attending Note Name of Resident: Lizbeth Saldana ATTENDING PHYSICIAN STATEMENT I saw and evaluated the patient. I reviewed the resident's note and discussed the case with the resident. I agree with the resident's findings and plan as documented. SUBJECTIVE:c/o CP on deep inspiration. pain has not changes in quality since arrival. claims compliant with medications at home. Denies SOB, fever, chills, N /V/C/D OBJECTIVE: Last Vital Signs Temp Pulse Resp BP Pulse Ox 98.6 F 79 18 124/79 100 09/25/17 08:19 09/25/17 08:19 09/25/17 08:22 09/25/17 08:19 09/25/17 08:22 General NAD CV S1 S2 RRR no murmur/rub/gallop + chest wall tenderness Lungs CTA B/L no wheezing/rales/rhonchi ASSESSMENT AND PLAN: 21 yo M with PMhx of Type I DM, Hep C, IVDU (heroine/Cocaine) prior MRSA bacteremia with septic pulmonary emboli, left AMA without completing full antibiotic course, comes back with chest pain/shortness of breath. 1. MRSA bacteremia with septic emboli- incomplete treatement. now completed on cefipime/dapto. has chest wall tenderness, sclerotic/lytic lesion on imaging with elevated ESR. bone scan to r/o OM. low suspicion. ID on board 2. Sinus tachycardia-CTA neg for PE. Echo done. cardio evaluated. no further workup 3. DM- uncontrolled. pt eats very poorly (chips/candy/soda) seen binging at night. claims he is compliant with insulin at home and does sliding scale. stressed importance of appropriate diet. states he knows what he should be eating but chooses not to. discussed risks assoc with uncontrolled DM and early if remains uncontrolled. verbalized understanding 4. remote IVDA- on suboxone. relapsed with cocaine several days prior to presentation. denies IVDA. denies withdrawal symptoms. to f/u at [facility] on discharge 5. with Chest pain/Shortness of breath, CTA neg for concerns 6. Lactic acidosis- resolved 7. d/c planning today pending bone scan results
--- NOTE | 2017-09-25 13:04 | MSN ---
Progress Note (short form) - Note Progress Note: SUBJECTIVE: Patient seen and examined at bedside this morning. Yesterday evening , patient again had elevated BG of 452 without an associated anion gap. He received 12 units of novolog. AM BG 199. air sampling and monitoring was noteable for sinus tachycardia to 120's. Today, patient feels well but continues to feel like he is unable to take a deep breath due to sternal pain with deep inspiration. He has no other complaints. He denies fever, nausea/vomiting, palpitations, or abdominal pain. OBJECTIVE: Vital Signs Period Temp Pulse Resp BP Sys/Nolan Pulse Ox Last 24 Hr 97.9 F-98.6 F 75-91 18-20 115-128/72-82 100-100 PHYSICAL EXAM GENERAL: Young, thin male, comfortably reclining in bed HEENT: No sclera pallor, sclera anicteric, EOMI, no erythema of nasal mucosa CARDIOVASCULAR: No JVD, regular at 100 bpm with S1/S2 LUNGS: Clear to auscultation b/l, without wheezes or crackles, no dullness on percussion ABDOMEN: Normoactive bowel sounds, non-distended, soft, non-tender, no rebound or guarding EXTREMITIES: 2+ pulses UE/LE b/l SKIN: Healing scar on left arm without surrounding erythema or induration NEURO: CN II-XII grossly intact, normal speech, 5/5 muscle strength throughout Laboratory Results - last 24 hr 09/22/17 09/24/17 09/24/17 21:39 14:41 17:59 WBC RBC Hgb Hct MCV MCH MCHC RDW Plt Count MPV Neutrophils % Lymphocytes % Monocytes % Eosinophils % Basophils % Sodium 135 L Potassium 4.2 Chloride 100 Carbon Dioxide 28 Anion Gap 7 L BUN 26 H D Creatinine 0.9 POC Glucometer 432 170 Random Glucose 452 H* D Calcium 8.1 L 09/24/17 09/25/17 09/25/17 20:54 05:00 06:30 WBC 6.0 RBC 3.28 L Hgb 9.8 L Hct 28.8 L MCV 87.8 MCH 29.9 MCHC 34.1 RDW 16.4 H Plt Count 239 MPV 7.9 Neutrophils % 41.3 L Lymphocytes % 45.4 H Monocytes % 7.8 Eosinophils % 4.8 H Basophils % 0.7 Sodium Potassium Chloride Carbon Dioxide Anion Gap BUN Creatinine POC Glucometer 323 200 Random Glucose Calcium 09/25/17 09/25/17 06:30 11:10 WBC RBC Hgb Hct MCV MCH MCHC RDW Plt Count MPV Neutrophils % Lymphocytes % Monocytes % Eosinophils % Basophils % Sodium 139 Potassium 4.1 Chloride 101 Carbon Dioxide 28 Anion Gap 10 BUN 21 H Creatinine 0.6 L D POC Glucometer 158 Random Glucose 199 H D Calcium 8.4 L ASSESSMENT/PLAN: 21 yr old male with history of IDDM, drug abuse, untreated HepC, and recent admission for MRSA bacteremia presented to the ED with 4 days of chest pain and fever and was found to have hyperglycemia and lactic acidosis. #Hyperglycemia-At home patient admits to being non-compliant with insulin ( HbA1c of 9.4). Encouraged patient to maintain diabetic diet and not to eat jelly beans/chips/soda that his family brings. Explain to patient the complications of chronically elevated blood glucose. -BG QAC/HS -Increase Levemir to 10 units QAM and continue levemir 30 units QHS; continue insulin sliding scale #Lytic/sclerotic sternal lesion-CT demonstrated a lesion of the manubrium and given that patient continues to complain of sternal pain with inspiration and patient has a mild elevation of inflammatory markers (ESR 34 and Alk Phos 120), a bone scan was ordered to evaluate for possibility of osteomyelitis. Patient is to go for bone scan today. #Heroin Addiction-Patient was started on suboxone on prior admission (07/23) and will continue suboxone 8 mg/2mg. -Patient to follow-up with Dr. Manuel; referred to [facility] for outpatient treatment #Tachycardia-Patient intermittently tachycardic to 130 bpm. Baseline heart rate around 100 bpm. Transthoracic echo demonstrated mild mitral regurg and EF > 40% . Seen by cardiology who recommended deferring PEG as patient is not bacteremic. Cardiology stated that patient no longer has to remain on telemetry monitoring. #Lactic vewdnbfz-Oasbihvo-Tbqjnc acid trended down from 5.3 at time of admission to 1.9 (09/23). Most likely had been due to dehydration/hyperglycemia rather than to sepsis. Blood cultures/UA negative. Patient treated empirically with 4 days of Cefepime 2 g Q8H and daptomycin 560 mg QD. ABX have been discontinued per ID recommendation. #HepC-Patient has not been treated for HepC. LFTs within normal limits at this time. #ABD xkhr-novsmkry-TV demonstrated mild hepatosplenomegaly and retained fecal material. Patient given colace and senna. Patient does not complain of abdominal pain. #FEN -NS at 75 cc/hr -DVT ppx- Lovenox 40 units SQ -Diabetic diet #Dispo-pending results of bone scan patient can be discharged. Follow-up at [facility].
[2017-09-25 20:11] LABS: ANION GAP 10 (8-16); BLOOD UREA NITROGEN 24 mg/dL (7-18); CALCIUM 8.2 mg/dL (8.5-10.1); CHLORIDE 98 mmol/L (98-107); CO2 25 mmol/L (21-32); CREATININE 1.1 mg/dL (0.7-1.3); POTASSIUM 4.2 mmol/L (3.5-5.1); SODIUM 133 mmol/L (136-145)
[2017-09-25 20:14] LABS: GLUCOSE,RANDOM 468 mg/dL (74-106)
[2017-09-25] MEDS ORDERED: INSULIN DETEMIR 100 UNITS/ML MDV SQ SCH (21:15)
[2017-09-25] MEDS: THIAMINE HCL 100 MG TABLET (FP) PO SCH (21:51)
[2017-09-25] MEDS: ZOLPIDEM TARTRATE 5 MG TABLET PO PRN (21:51)
[2017-09-25] MEDS: SENNOSIDES 8.6MG TABLET (FP) PO SCH (21:51)
[2017-09-25] MEDS ORDERED: INSULIN (NOVOLOG) ASPART 100 UNITS/ML 10ML VIAL SQ ONE (23:00)
[2017-09-26] MEDS ORDERED: ZOLPIDEM TARTRATE 5 MG TABLET PO PRN (00:15)
[2017-09-26] MEDS ORDERED: IBUPROFEN 600 MG TABLET (FP) PO PRN (00:15)
[2017-09-26] MEDS ORDERED: cloNIDine HCL 0.1 MG TABLET PO PRN (00:15)
[2017-09-26] MEDS: INSULIN SLIDING SCALE (NOVOLOG) 1 VIAL SQ SCH ×2 (06:00→11:57)
[2017-09-26] MEDS ORDERED: INSULIN DETEMIR 100 UNITS/ML MDV SQ SCH (07:00)
--- NOTE | 2017-09-26 07:20 | PN ---
Physical Exam: SUBJECTIVE: Patient seen and examined OBJECTIVE: Vital Signs Period Temp Pulse Resp BP Sys/Nolan Pulse Ox Last 24 Hr 97.8 F-98.6 F 79-105 18-20 124-150/76-109 96-100 GENERAL: The patient is awake, alert, and fully oriented, in no acute distress. HEAD: Normal with no signs of trauma. EYES: PERRL, extraocular movements intact, sclera anicteric, conjunctiva clear. No ptosis. ENT: Ears normal, nares patent, oropharynx clear without exudates, moist mucous membranes. NECK: Trachea midline, full range of motion, supple. LUNGS: Breath sounds equal, clear to auscultation bilaterally, no wheezes, no crackles, no accessory muscle use. HEART: Regular rate and rhythm, S1, S2 without murmur, rub or gallop. ABDOMEN: Soft, nontender, nondistended, normoactive bowel sounds, no guarding, no rebound, no hepatosplenomegaly, no masses. EXTREMITIES: 2+ pulses, warm, well-perfused, no edema. NEUROLOGICAL: Cranial nerves II through XII grossly intact. Normal speech, gait not observed. PSYCH: Normal mood, normal affect. SKIN: Warm, dry, normal turgor, no rashes or lesions noted Laboratory Results - last 24 hr 09/25/17 09/25/17 09/25/17 06:30 11:10 18:50 Sodium 139 133 L Potassium 4.1 4.2 Chloride 101 98 Carbon Dioxide 28 25 Anion Gap 10 10 BUN 21 H 24 H Creatinine 0.6 L D 1.1 D POC Glucometer 158 Random Glucose 199 H D 468 H* D Calcium 8.4 L 8.2 L 09/25/17 09/26/17 09/26/17 21:49 01:56 06:03 Sodium Potassium Chloride Carbon Dioxide Anion Gap BUN Creatinine POC Glucometer 434 263 103 Random Glucose Calcium Active Medications Generic Name Dose Route Start Last Admin Trade Name Freq PRN Reason Stop Dose Admin Buprenorphine/Naloxone 1 each 09/26/17 10:00 Suboxone 8mg/2mg Sl Film - SL DAILY ROBIN Clonidine 0.1 mg 09/26/17 00:15 09/26/17 06:04 Catapres - PO 0.1 mg BID PRN Administration WITHDRAWAL(CONT SUBST) Docusate Sodium 100 mg 09/26/17 10:00 Colace - PO BID [facility] Enoxaparin Sodium 40 mg 09/26/17 10:00 Lovenox - SQ DAILY ROBIN Ibuprofen 600 mg 09/26/17 00:15 Motrin - PO Q6H PRN FEVER Insulin Aspart 1 vial 09/26/17 07:00 09/26/17 06:00 Novolog Vial Sliding Scale - SQ Not Given ACHS [facility] Protocol Insulin Detemir 35 units 09/25/17 21:15 09/25/17 22:51 Levemir Vial SQ 35 unit HS [facility] Administration Insulin Detemir 10 units 09/26/17 07:00 09/26/17 05:59 Levemir Vial SQ Not Given ACBK [facility] Multivit/Folic Acid/Iron 1 tab 09/26/17 10:00 Vitamins (Sjr) - PO DAILY [facility] Senna 2 tab 09/26/17 22:00 Senna - PO HS [facility] Thiamine HCl 100 mg 09/26/17 22:00 Vitamin B1 - PO HS [facility] Zolpidem Tartrate 10 mg 09/26/17 00:15 Ambien - PO HS PRN INSOMNIA ASSESSMENT/PLAN:
[2017-09-26 07:35] LABS: EOS % 3.8 % (0-4.5); HEMATOCRIT 31.7 % (35.4-49); HEMOGLOBIN 10.9 GM/dL (11.7-16.9); LYMPH % 34.7 % (8-40); MCH 29.8 pg (25.7-33.7); MCHC 34.5 g/dl (32.0-35.9); MEAN CELL VOLUME 86.4 fl (80-96); MEAN PLT VOLUME 7.7 fl (7.5-11.1); MONO % 8.7 % (3.8-10.2); NEUT % 51.8 % (42.8-82.8); PLATELET COUNT 262 K/MM3 (134-434); RBC 3.67 M/mm3 (4.00-5.60); RDW 16.5 % (11.9-15.9); WHITE BLOOD COUNT 6.1 K/mm3 (4.0-10.0)
[2017-09-26 07:57] LABS: ALBUMIN 2.8 g/dl (3.4-5.0); ALK PHOS 120 U/L (45-117); ANION GAP 7 (8-16); BILIRUBIN,TOTAL 0.3 mg/dL (0.2-1.0); BLOOD UREA NITROGEN 20 mg/dL (7-18); CALCIUM 8.7 mg/dL (8.5-10.1); CHLORIDE 99 mmol/L (98-107); CO2 32 mmol/L (21-32); CREATININE 0.6 mg/dL (0.7-1.3); GLUCOSE,RANDOM 152 mg/dL (74-106); SGOT/AST 107 U/L (15-37); SGPT/ALT 102 U/L (12-78); SODIUM 138 mmol/L (136-145); TOT PROT 7.4 g/dl (6.4-8.2)
[2017-09-26] MEDS ORDERED: DOCUSATE SODIUM 100 MG CAPSULE (FP) PO SCH (10:00)
[2017-09-26] MEDS ORDERED: PRENATAL VITAMINS W/ FOLIC ACID TABLET (FP) PO SCH (10:00)
[2017-09-26] MEDS ORDERED: BUPRENORPHINE/NALOXONE 8 MG/2 MG FILM PACKET SL SCH (10:00)
[2017-09-26] MEDS ORDERED: ENOXAPARIN NA (PORCINE) 40 MG/0.4 ML DISP.SYRIN SQ SCH (10:00)
[2017-09-26] MEDS ORDERED: PT OWN MED DRAWER 7, Y5N ONE (10:10)
--- NOTE | 2017-09-26 10:37 | MSN ---
Progress Note (short form) - Note Progress Note: SUBJECTIVE: Patient seen and examined this morning. Overnight, patient was noted to have a BG of 468 with a normal anion gap of 10. He was given 15 units of novolog and a repeat BG was still in the 400's. Patient was given another 8 units of novolog. At 5 am, patient was tremulous and noted to have a BG of 46. He was given juice and crackers. Repeat BG was 103. Patient also had elevated blood pressure readings of about 150/109 overnight. Patient continues to complain of unchanged sternal pain that increases with inspiration and is tender to palpation. He also mentioned a toothache that he had yesterday but it has not bothered him since. He denies fevers/chills, nausea/vomiting, SOB, diaphoresis, palpitations, or headache. OBJECTIVE: Vital Signs Period Temp Pulse Resp BP Sys/Nolan Pulse Ox Last 24 Hr 97.8 F-98.6 F 86-105 18-20 134-150/76-109 96 PHYSICAL EXAM GENERAL: Young, thin male resting comfortably; alert and orientated x 3 EYES: Sclera anicteric, EOMI, PERRLA, MOUTH/PHARYNX: Poor dentition, no erythema or tonsilar hypertrophy or exudates, moist mucous membranes NECK: Trachea midline, no thyromegaly CHEST: Tenderness to deep palpation of sternum at T3 to manubrium CARDIOVASCULAR: No JVD, regular at 80 bpm, S1/S2, no gallops or rubs LUNGS: Clear to auscultation bilaterally, no wheezes or crackles ABDOMEN: Normoactive bowel sounds, flat, non-distended, non-tender, no rebound or guarding, no masses EXTREMITIES: 2+ pulses equal b/l SKIN: Healed scar on left forearm without erythema or induration, tattoos NEURO: CN II-XII grossly intact, normal speech, 5/5 muscle strength throughout Laboratory Results - last 24 hr 09/25/17 09/25/17 09/25/17 11:10 17:26 18:37 WBC RBC Hgb Hct MCV MCH MCHC RDW Plt Count MPV Neutrophils % Lymphocytes % Monocytes % Eosinophils % Basophils % Sodium Potassium Chloride Carbon Dioxide Anion Gap BUN Creatinine Creat Clearance w eGFR POC Glucometer 158 564 504 Random Glucose Calcium Total Bilirubin AST ALT Alkaline Phosphatase Total Protein Albumin 0409/25/17 09/26/17 18:50 21:49 01:56 WBC RBC Hgb Hct MCV MCH MCHC RDW Plt Count MPV Neutrophils % Lymphocytes % Monocytes % Eosinophils % Basophils % Sodium 133 L Potassium 4.2 Chloride 98 Carbon Dioxide 25 Anion Gap 10 BUN 24 H Creatinine 1.1 D Creat Clearance w eGFR POC Glucometer 434 263 Random Glucose 468 H* D Calcium 8.2 L Total Bilirubin AST ALT Alkaline Phosphatase Total Protein Albumin 09/26/17 09/26/17 09/26/17 05:36 06:03 06:20 WBC 6.1 RBC 3.67 L Hgb 10.9 L D Hct 31.7 L MCV 86.4 MCH 29.8 MCHC 34.5 RDW 16.5 H Plt Count 262 MPV 7.7 Neutrophils % 51.8 D Lymphocytes % 34.7 D Monocytes % 8.7 Eosinophils % 3.8 Basophils % 1.0 Sodium Potassium Chloride Carbon Dioxide Anion Gap BUN Creatinine Creat Clearance w eGFR POC Glucometer 46 103 Random Glucose Calcium Total Bilirubin AST ALT Alkaline Phosphatase Total Protein Albumin 09/26/17 06:20 WBC RBC Hgb Hct MCV MCH MCHC RDW Plt Count MPV Neutrophils % Lymphocytes % Monocytes % Eosinophils % Basophils % Sodium 138 Potassium 4.0 Chloride 99 Carbon Dioxide 32 D Anion Gap 7 L BUN 20 H Creatinine 0.6 L D Creat Clearance w eGFR > 60 POC Glucometer Random Glucose 152 H D Calcium 8.7 Total Bilirubin 0.3 D AST 107 H D ALT 102 H D Alkaline Phosphatase 120 H Total Protein 7.4 Albumin 2.8 L IMAGIN/17-Nuclear bone scan demonstrated radiotracer uptake confined to the manubrium ASSESSMENT/PLAN: 21 yr old male with history of IDDM, Hep C, MRSA bacteremia, drug abuse presented to the ED with 4 days of chest pain, SOB, and fever and was found to have hyperglycemia, lactic acidosis, and a sclerotic bone lesion on CT. #Hyperglycemia- Continued difficulty in managing patient's evening blood glucose. He states that at home he has better glucose control as he carefully counts carbohydrates but has not been doing so while in the hospital. He understands that low-carb is the best diet plan from him and the importance of properly taking his insulin to maintain glycemic control. His beam saw operator is Dr. Win Lazo. -BG check QAC/HS -Continue levemir 10 units QAM and levemir 35 units QHS -Continue ISS with novolog -Once discharged resume previous insulin regimen and follow-up with Dr. Lazo #Sclerotic sternal lesion- Enhanced uptake of radiotracer confined to the manubrium likely due to septic embolic from prior MRSA bacteremia (07/23/17) as previous CT (07/2017) did not demonstrate a lesion making neoplasm less likely. Patient currently afebrile and no elevated WBC. ID advises to start linezolid 600 mg BID x 3 weeks. Patient should follow-up as an outpatient for repeat nuclear imaging and to assess need for a bone biopsy. #Elevated LFTs- Patient has chronic, untreated Hep C and on prior admission was also noted to have intermittent elevation of LFTs. Repeat CMP to evaluate for stability of LFTs. Patient should repeat LFT in 1 week and follow-up with PMD. #Drug Abuse-Patient has been well-controlled with Suboxone. Dr. Manuel ordered Suboxone for discharge and patient will follow-up at the [facility]. #FEN- -Diabetic diet -DVT prophylaxis; Lovenox 40 units SQ #Dispo-discharge home with follow-up for repeat nuclear imaging, endocrinology, and [facility]
--- NOTE | 2017-09-26 10:52 | PN ---
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 Objective: 09/26/17 10:50 Vital Signs - 8 hr 09/26/17 09/26/17 09/26/17 05:39 05:49 05:50 Temperature 98.2 F Pulse Rate 88 86 Respiratory 18 Rate Blood Pressure 150/109 150/107 hypertensive Laboratory Tests 09/20/17 09/20/17 09/20/17 21:22 21:22 21:22 WBC RBC Hgb Hct MCV MCH MCHC RDW Plt Count MPV Neutrophils % Lymphocytes % Monocytes % Eosinophils % Basophils % ESR PT with INR 10.20 INR 0.90 PTT (Actin FS) 28.7 D-Dimer Puncture Site ABG pH ABG pCO2 at Pt Temp ABG pO2 at Pt Temp ABG HCO3 ABG O2 Sat (Measured) ABG O2 Content ABG Base Excess Markus Test Carboxyhemoglobin Methemoglobin O2 Delivery Device Oxygen Flow Rate Sodium 134 L Potassium 3.9 Chloride 97 L Carbon Dioxide 23 Anion Gap 14 BUN 29 H Creatinine 1.4 H D Creat Clearance w eGFR > 60 POC Glucometer Random Glucose 388 H* Hemoglobin A1c % Lactic Acid 5.3 H* Calcium 9.2 Phosphorus Magnesium 1.9 D Total Bilirubin 0.5 D AST 41 H D ALT 86 H Alkaline Phosphatase 161 H Creatine Kinase 82 Troponin I 0.08 H D C-Reactive Protein B-Natriuretic Peptide Total Protein 8.8 H Albumin 3.1 L D Lipase 156 TSH Urine Color Urine Appearance Urine pH Ur Specific [place] Urine Protein Urine Glucose (UA) Urine Ketones Urine Blood Urine Nitrite Urine Bilirubin Urine Urobilinogen Ur Leukocyte Esterase Urine WBC (Auto) Urine RBC (Auto) Ur Epithelial Cells Opiates Screen Methadone Screen Barbiturate Screen Phencyclidine Screen Ur Amphetamines Screen MDMA (Ecstasy) Screen Benzodiazepines Screen Cocaine Screen U Marijuana (THC) Screen Acetone, Qual 09/20/17 09/20/17 09/20/17 21:22 21:22 21:22 WBC RBC Hgb Hct MCV MCH MCHC RDW Plt Count MPV Neutrophils % Lymphocytes % Monocytes % Eosinophils % Basophils % ESR PT with INR INR PTT (Actin FS) D-Dimer 653 H Puncture Site ABG pH ABG pCO2 at Pt Temp ABG pO2 at Pt Temp ABG HCO3 ABG O2 Sat (Measured) ABG O2 Content ABG Base Excess Markus Test Carboxyhemoglobin Methemoglobin O2 Delivery Device Oxygen Flow Rate Sodium Potassium Chloride Carbon Dioxide Anion Gap BUN Creatinine Creat Clearance w eGFR POC Glucometer Random Glucose Hemoglobin A1c % Lactic Acid Calcium Phosphorus Magnesium Total Bilirubin AST ALT Alkaline Phosphatase Creatine Kinase Troponin I C-Reactive Protein B-Natriuretic Peptide Total Protein Albumin Lipase TSH 0.36 D Urine Color Urine Appearance Urine pH Ur Specific [place] Urine Protein Urine Glucose (UA) Urine Ketones Urine Blood Urine Nitrite Urine Bilirubin Urine Urobilinogen Ur Leukocyte Esterase Urine WBC (Auto) Urine RBC (Auto) Ur Epithelial Cells Opiates Screen Methadone Screen Barbiturate Screen Phencyclidine Screen Ur Amphetamines Screen MDMA (Ecstasy) Screen Benzodiazepines Screen Cocaine Screen U Marijuana (THC) Screen Acetone, Qual Positive small 1+ 09/20/17 09/20/17 09/20/17 21:32 21:32 21:45 WBC 9.7 D RBC 4.14 D Hgb 12.2 D Hct 35.6 D MCV 85.8 MCH 29.5 MCHC 34.4 RDW 16.5 H Plt Count 399 MPV 7.7 Neutrophils % 71.0 Lymphocytes % 21.9 D Monocytes % 5.6 Eosinophils % 0.5 Basophils % 1.0 ESR PT with INR INR PTT (Actin FS) D-Dimer Puncture Site ABG pH ABG pCO2 at Pt Temp ABG pO2 at Pt Temp ABG HCO3 ABG O2 Sat (Measured) ABG O2 Content ABG Base Excess Markus Test Carboxyhemoglobin Methemoglobin O2 Delivery Device Oxygen Flow Rate Sodium Potassium Chloride Carbon Dioxide Anion Gap BUN Creatinine Creat Clearance w eGFR POC Glucometer Random Glucose Hemoglobin A1c % Lactic Acid Calcium Phosphorus Magnesium Total Bilirubin AST ALT Alkaline Phosphatase Creatine Kinase Troponin I C-Reactive Protein B-Natriuretic Peptide 614 H Total Protein Albumin Lipase TSH Urine Color Straw Urine Appearance Clear Urine pH 6.0 Ur Specific [place] 1.027 Urine Protein 2+ H Urine Glucose (UA) 3+ H Urine Ketones Trace H Urine Blood 1+ H Urine Nitrite Negative Urine Bilirubin Negative Urine Urobilinogen Negative Ur Leukocyte Esterase Negative Urine WBC (Auto) <1 Urine RBC (Auto) 2 Ur Epithelial Cells Rare Opiates Screen Methadone Screen Barbiturate Screen Phencyclidine Screen Ur Amphetamines Screen MDMA (Ecstasy) Screen Benzodiazepines Screen Cocaine Screen U Marijuana (THC) Screen Acetone, Qual 09/20/17 09/20/17 09/20/17 21:45 23:01 23:27 WBC RBC Hgb Hct MCV MCH MCHC RDW Plt Count MPV Neutrophils % Lymphocytes % Monocytes % Eosinophils % Basophils % ESR PT with INR INR PTT (Actin FS) D-Dimer Puncture Site ABG pH ABG pCO2 at Pt Temp ABG pO2 at Pt Temp ABG HCO3 ABG O2 Sat (Measured) ABG O2 Content ABG Base Excess Markus Test Carboxyhemoglobin Methemoglobin O2 Delivery Device Oxygen Flow Rate Sodium 137 Potassium 4.1 Chloride 102 Carbon Dioxide 23 Anion Gap 12 BUN 25 H Creatinine 1.2 Creat Clearance w eGFR > 60 POC Glucometer Random Glucose 282 H D Hemoglobin A1c % Lactic Acid 4.7 H* Calcium 8.5 Phosphorus Magnesium Total Bilirubin 0.5 AST 29 D ALT 73 Alkaline Phosphatase 131 H Creatine Kinase Troponin I C-Reactive Protein B-Natriuretic Peptide Total Protein 7.9 Albumin 2.9 L Lipase TSH Urine Color Urine Appearance Urine pH Ur Specific [place] Urine Protein Urine Glucose (UA) Urine Ketones Urine Blood Urine Nitrite Urine Bilirubin Urine Urobilinogen Ur Leukocyte Esterase Urine WBC (Auto) Urine RBC (Auto) Ur Epithelial Cells Opiates Screen Negative Methadone Screen Negative Barbiturate Screen Negative Phencyclidine Screen Negative Ur Amphetamines Screen Positive MDMA (Ecstasy) Screen Negative Benzodiazepines Screen Negative Cocaine Screen Positive U Marijuana (THC) Screen Negative Acetone, Qual 09/20/17 09/21/17 09/21/17 23:32 03:40 05:21 WBC 7.6 RBC 3.27 L D Hgb 9.8 L D Hct 28.8 L D MCV 87.8 MCH 29.8 MCHC 34.0 RDW 16.6 H Plt Count 308 D MPV 7.7 Neutrophils % 51.6 D Lymphocytes % 40.1 H D Monocytes % 6.6 Eosinophils % 1.3 D Basophils % 0.4 ESR PT with INR INR PTT (Actin FS) D-Dimer Puncture Site Right radial ABG pH 7.33 L ABG pCO2 at Pt Temp 44.1 ABG pO2 at Pt Temp 78.6 L D ABG HCO3 22.8 ABG O2 Sat (Measured) 94.9 ABG O2 Content 13.4 L ABG Base Excess -2.5 L Markus Test Positive Carboxyhemoglobin 2.7 H Methemoglobin 1.1 O2 Delivery Device Room air Oxygen Flow Rate No Sodium Potassium Chloride Carbon Dioxide Anion Gap BUN Creatinine Creat Clearance w eGFR POC Glucometer Random Glucose Hemoglobin A1c % Lactic Acid 3.4 H* Calcium Phosphorus Magnesium Total Bilirubin AST ALT Alkaline Phosphatase Creatine Kinase Troponin I C-Reactive Protein B-Natriuretic Peptide Total Protein Albumin Lipase TSH Urine Color Urine Appearance Urine pH Ur Specific [place] Urine Protein Urine Glucose (UA) Urine Ketones Urine Blood Urine Nitrite Urine Bilirubin Urine Urobilinogen Ur Leukocyte Esterase Urine WBC (Auto) Urine RBC (Auto) Ur Epithelial Cells Opiates Screen Methadone Screen Barbiturate Screen Phencyclidine Screen Ur Amphetamines Screen MDMA (Ecstasy) Screen Benzodiazepines Screen Cocaine Screen U Marijuana (THC) Screen Acetone, Qual 09/21/17 09/21/17 09/21/17 05:21 05:21 05:21 WBC RBC Hgb Hct MCV MCH MCHC RDW Plt Count MPV Neutrophils % Lymphocytes % Monocytes % Eosinophils % Basophils % ESR PT with INR INR PTT (Actin FS) D-Dimer Puncture Site ABG pH ABG pCO2 at Pt Temp ABG pO2 at Pt Temp ABG HCO3 ABG O2 Sat (Measured) ABG O2 Content ABG Base Excess Markus Test Carboxyhemoglobin Methemoglobin O2 Delivery Device Oxygen Flow Rate Sodium 139 139 Potassium 4.9 4.9 Chloride 109 H 111 H Carbon Dioxide 21 21 Anion Gap 9 7 L BUN 19 H D 19 H Creatinine 1.0 1.0 Creat Clearance w eGFR > 60 POC Glucometer Random Glucose 259 H 262 H Hemoglobin A1c % 8.4 H D Lactic Acid Calcium 7.9 L 7.8 L Phosphorus 2.9 D Magnesium 1.8 Total Bilirubin 0.4 AST 26 ALT 65 Alkaline Phosphatase 116 Creatine Kinase 63 Troponin I 0.08 H C-Reactive Protein B-Natriuretic Peptide Total Protein 7.0 Albumin 2.6 L Lipase TSH Urine Color Urine Appearance Urine pH Ur Specific [place] Urine Protein Urine Glucose (UA) Urine Ketones Urine Blood Urine Nitrite Urine Bilirubin Urine Urobilinogen Ur Leukocyte Esterase Urine WBC (Auto) Urine RBC (Auto) Ur Epithelial Cells Opiates Screen Methadone Screen Barbiturate Screen Phencyclidine Screen Ur Amphetamines Screen MDMA (Ecstasy) Screen Benzodiazepines Screen Cocaine Screen U Marijuana (THC) Screen Acetone, Qual 09/21/17 09/21/17 09/21/17 05:21 05:21 05:21 WBC RBC Hgb Hct MCV MCH MCHC RDW Plt Count MPV Neutrophils % Lymphocytes % Monocytes % Eosinophils % Basophils % ESR 36 H PT with INR INR PTT (Actin FS) D-Dimer Puncture Site ABG pH ABG pCO2 at Pt Temp ABG pO2 at Pt Temp ABG HCO3 ABG O2 Sat (Measured) ABG O2 Content ABG Base Excess Markus Test Carboxyhemoglobin Methemoglobin O2 Delivery Device Oxygen Flow Rate Sodium Cancelled Potassium Cancelled Chloride Cancelled Carbon Dioxide Cancelled Anion Gap Cancelled BUN Cancelled Creatinine Cancelled Creat Clearance w eGFR POC Glucometer Random Glucose Cancelled Hemoglobin A1c % 9.4 H D Lactic Acid Calcium Cancelled Phosphorus Magnesium Total Bilirubin AST ALT Alkaline Phosphatase Creatine Kinase Troponin I Cancelled C-Reactive Protein B-Natriuretic Peptide Total Protein Albumin Lipase TSH Urine Color Urine Appearance Urine pH Ur Specific [place] Urine Protein Urine Glucose (UA) Urine Ketones Urine Blood Urine Nitrite Urine Bilirubin Urine Urobilinogen Ur Leukocyte Esterase Urine WBC (Auto) Urine RBC (Auto) Ur Epithelial Cells Opiates Screen Methadone Screen Barbiturate Screen Phencyclidine Screen Ur Amphetamines Screen MDMA (Ecstasy) Screen Benzodiazepines Screen Cocaine Screen U Marijuana (THC) Screen Acetone, Qual 09/21/17 09/21/17 09/21/17 05:48 05:55 12:37 WBC RBC Hgb Hct MCV MCH MCHC RDW Plt Count MPV Neutrophils % Lymphocytes % Monocytes % Eosinophils % Basophils % ESR PT with INR INR PTT (Actin FS) D-Dimer Puncture Site ABG pH ABG pCO2 at Pt Temp ABG pO2 at Pt Temp ABG HCO3 ABG O2 Sat (Measured) ABG O2 Content ABG Base Excess Markus Test Carboxyhemoglobin Methemoglobin O2 Delivery Device Oxygen Flow Rate Sodium Potassium Chloride Carbon Dioxide Anion Gap BUN Creatinine Creat Clearance w eGFR POC Glucometer [phone] Random Glucose Hemoglobin A1c % Lactic Acid 2.7 H* Calcium Phosphorus Magnesium Total Bilirubin AST ALT Alkaline Phosphatase Creatine Kinase Troponin I C-Reactive Protein B-Natriuretic Peptide Total Protein Albumin Lipase TSH Urine Color Urine Appearance Urine pH Ur Specific [place] Urine Protein Urine Glucose (UA) Urine Ketones Urine Blood Urine Nitrite Urine Bilirubin Urine Urobilinogen Ur Leukocyte Esterase Urine WBC (Auto) Urine RBC (Auto) Ur Epithelial Cells Opiates Screen Methadone Screen Barbiturate Screen Phencyclidine Screen Ur Amphetamines Screen MDMA (Ecstasy) Screen Benzodiazepines Screen Cocaine Screen U Marijuana (THC) Screen Acetone, Qual 09/21/17 09/21/17 09/22/17 17:45 22:11 06:05 WBC RBC Hgb Hct MCV MCH MCHC RDW Plt Count MPV Neutrophils % Lymphocytes % Monocytes % Eosinophils % Basophils % ESR PT with INR INR PTT (Actin FS) D-Dimer Puncture Site ABG pH ABG pCO2 at Pt Temp ABG pO2 at Pt Temp ABG HCO3 ABG O2 Sat (Measured) ABG O2 Content ABG Base Excess Markus Test Carboxyhemoglobin Methemoglobin O2 Delivery Device Oxygen Flow Rate Sodium Potassium Chloride Carbon Dioxide Anion Gap BUN Creatinine Creat Clearance w eGFR POC Glucometer 210 355 166 Random Glucose Hemoglobin A1c % Lactic Acid Calcium Phosphorus Magnesium Total Bilirubin AST ALT Alkaline Phosphatase Creatine Kinase Troponin I C-Reactive Protein B-Natriuretic Peptide Total Protein Albumin Lipase TSH Urine Color Urine Appearance Urine pH Ur Specific [place] Urine Protein Urine Glucose (UA) Urine Ketones Urine Blood Urine Nitrite Urine Bilirubin Urine Urobilinogen Ur Leukocyte Esterase Urine WBC (Auto) Urine RBC (Auto) Ur Epithelial Cells Opiates Screen Methadone Screen Barbiturate Screen Phencyclidine Screen Ur Amphetamines Screen MDMA (Ecstasy) Screen Benzodiazepines Screen Cocaine Screen U Marijuana (THC) Screen Acetone, Qual 09/22/17 09/22/17 09/22/17 06:30 06:30 06:30 WBC 5.4 RBC 3.43 L Hgb 10.1 L Hct 30.3 L MCV 88.3 MCH 29.3 MCHC 33.2 RDW 16.4 H Plt Count 274 MPV 7.8 Neutrophils % 42.3 L Lymphocytes % 46.1 H Monocytes % 7.0 Eosinophils % 3.7 D Basophils % 0.9 ESR PT with INR INR PTT (Actin FS) D-Dimer Puncture Site ABG pH ABG pCO2 at Pt Temp ABG pO2 at Pt Temp ABG HCO3 ABG O2 Sat (Measured) ABG O2 Content ABG Base Excess Markus Test Carboxyhemoglobin Methemoglobin O2 Delivery Device Oxygen Flow Rate Sodium 140 Potassium 4.2 Chloride 107 Carbon Dioxide 24 Anion Gap 9 BUN 16 Creatinine 0.8 Creat Clearance w eGFR > 60 POC Glucometer Random Glucose 215 H Hemoglobin A1c % Lactic Acid 1.9 Calcium 8.3 L Phosphorus Magnesium Total Bilirubin 0.4 AST 31 ALT 57 Alkaline Phosphatase 131 H Creatine Kinase Troponin I C-Reactive Protein B-Natriuretic Peptide Total Protein 6.9 Albumin 2.5 L Lipase TSH Urine Color Urine Appearance Urine pH Ur Specific [place] Urine Protein Urine Glucose (UA) Urine Ketones Urine Blood Urine Nitrite Urine Bilirubin Urine Urobilinogen Ur Leukocyte Esterase Urine WBC (Auto) Urine RBC (Auto) Ur Epithelial Cells Opiates Screen Methadone Screen Barbiturate Screen Phencyclidine Screen Ur Amphetamines Screen MDMA (Ecstasy) Screen Benzodiazepines Screen Cocaine Screen U Marijuana (THC) Screen Acetone, Qual 09/22/17 09/22/17 09/22/17 11:46 16:49 21:39 WBC RBC Hgb Hct MCV MCH MCHC RDW Plt Count MPV Neutrophils % Lymphocytes % Monocytes % Eosinophils % Basophils % ESR PT with INR INR PTT (Actin FS) D-Dimer Puncture Site ABG pH ABG pCO2 at Pt Temp ABG pO2 at Pt Temp ABG HCO3 ABG O2 Sat (Measured) ABG O2 Content ABG Base Excess Markus Test Carboxyhemoglobin Methemoglobin O2 Delivery Device Oxygen Flow Rate Sodium Potassium Chloride Carbon Dioxide Anion Gap BUN Creatinine Creat Clearance w eGFR POC Glucometer 176 200 432 Random Glucose Hemoglobin A1c % Lactic Acid Calcium Phosphorus Magnesium Total Bilirubin AST ALT Alkaline Phosphatase Creatine Kinase Troponin I C-Reactive Protein B-Natriuretic Peptide Total Protein Albumin Lipase TSH Urine Color Urine Appearance Urine pH Ur Specific [place] Urine Protein Urine Glucose (UA) Urine Ketones Urine Blood Urine Nitrite Urine Bilirubin Urine Urobilinogen Ur Leukocyte Esterase Urine WBC (Auto) Urine RBC (Auto) Ur Epithelial Cells Opiates Screen Methadone Screen Barbiturate Screen Phencyclidine Screen Ur Amphetamines Screen MDMA (Ecstasy) Screen Benzodiazepines Screen Cocaine Screen U Marijuana (THC) Screen Acetone, Qual 09/22/17 09/23/17 09/23/17 22:00 02:00 06:30 WBC 5.0 RBC 3.53 L Hgb 10.5 L Hct 30.7 L MCV 87.2 MCH 29.8 MCHC 34.2 RDW 16.0 H Plt Count 255 MPV 7.9 Neutrophils % 46.7 Lymphocytes % 39.4 Monocytes % 7.5 Eosinophils % 5.5 H Basophils % 0.9 ESR PT with INR INR PTT (Actin FS) D-Dimer Puncture Site ABG pH ABG pCO2 at Pt Temp ABG pO2 at Pt Temp ABG HCO3 ABG O2 Sat (Measured) ABG O2 Content ABG Base Excess Markus Test Carboxyhemoglobin Methemoglobin O2 Delivery Device Oxygen Flow Rate Sodium 133 L 137 Potassium 4.9 4.0 Chloride 101 101 Carbon Dioxide 26 27 Anion Gap 6 L 9 BUN 23 H D 21 H Creatinine 0.9 1.1 D Creat Clearance w eGFR POC Glucometer Random Glucose 411 H* D 360 H* Hemoglobin A1c % Lactic Acid Calcium 7.9 L 8.7 Phosphorus Magnesium Total Bilirubin AST ALT Alkaline Phosphatase Creatine Kinase Troponin I C-Reactive Protein B-Natriuretic Peptide Total Protein Albumin Lipase TSH Urine Color Urine Appearance Urine pH Ur Specific [place] Urine Protein Urine Glucose (UA) Urine Ketones Urine Blood Urine Nitrite Urine Bilirubin Urine Urobilinogen Ur Leukocyte Esterase Urine WBC (Auto) Urine RBC (Auto) Ur Epithelial Cells Opiates Screen Methadone Screen Barbiturate Screen Phencyclidine Screen Ur Amphetamines Screen MDMA (Ecstasy) Screen Benzodiazepines Screen Cocaine Screen U Marijuana (THC) Screen Acetone, Qual 09/23/17 09/23/17 09/23/17 06:30 06:35 10:28 WBC RBC Hgb Hct MCV MCH MCHC RDW Plt Count MPV Neutrophils % Lymphocytes % Monocytes % Eosinophils % Basophils % ESR PT with INR INR PTT (Actin FS) D-Dimer Puncture Site ABG pH ABG pCO2 at Pt Temp ABG pO2 at Pt Temp ABG HCO3 ABG O2 Sat (Measured) ABG O2 Content ABG Base Excess Markus Test Carboxyhemoglobin Methemoglobin O2 Delivery Device Oxygen Flow Rate Sodium 139 Potassium 4.1 Chloride 103 Carbon Dioxide 26 Anion Gap 10 BUN 21 H Creatinine 0.8 D Creat Clearance w eGFR POC Glucometer 187 337 Random Glucose 235 H D Hemoglobin A1c % Lactic Acid Calcium 8.7 Phosphorus 4.1 D Magnesium 1.8 Total Bilirubin AST ALT Alkaline Phosphatase Creatine Kinase Troponin I C-Reactive Protein B-Natriuretic Peptide Total Protein Albumin Lipase TSH Urine Color Urine Appearance Urine pH Ur Specific [place] Urine Protein Urine Glucose (UA) Urine Ketones Urine Blood Urine Nitrite Urine Bilirubin Urine Urobilinogen Ur Leukocyte Esterase Urine WBC (Auto) Urine RBC (Auto) Ur Epithelial Cells Opiates Screen Methadone Screen Barbiturate Screen Phencyclidine Screen Ur Amphetamines Screen MDMA (Ecstasy) Screen Benzodiazepines Screen Cocaine Screen U Marijuana (THC) Screen Acetone, Qual 09/23/17 09/23/17 09/23/17 14:46 16:48 22:04 WBC RBC Hgb Hct MCV MCH MCHC RDW Plt Count MPV Neutrophils % Lymphocytes % Monocytes % Eosinophils % Basophils % ESR PT with INR INR PTT (Actin FS) D-Dimer Puncture Site ABG pH ABG pCO2 at Pt Temp ABG pO2 at Pt Temp ABG HCO3 ABG O2 Sat (Measured) ABG O2 Content ABG Base Excess Markus Test Carboxyhemoglobin Methemoglobin O2 Delivery Device Oxygen Flow Rate Sodium Potassium Chloride Carbon Dioxide Anion Gap BUN Creatinine Creat Clearance w eGFR POC Glucometer 139 198 575 Random Glucose Hemoglobin A1c % Lactic Acid Calcium Phosphorus Magnesium Total Bilirubin AST ALT Alkaline Phosphatase Creatine Kinase Troponin I C-Reactive Protein B-Natriuretic Peptide Total Protein Albumin Lipase TSH Urine Color Urine Appearance Urine pH Ur Specific [place] Urine Protein Urine Glucose (UA) Urine Ketones Urine Blood Urine Nitrite Urine Bilirubin Urine Urobilinogen Ur Leukocyte Esterase Urine WBC (Auto) Urine RBC (Auto) Ur Epithelial Cells Opiates Screen Methadone Screen Barbiturate Screen Phencyclidine Screen Ur Amphetamines Screen MDMA (Ecstasy) Screen Benzodiazepines Screen Cocaine Screen U Marijuana (THC) Screen Acetone, Qual 09/24/17 09/24/17 09/24/17 05:51 06:30 06:30 WBC 5.7 RBC 3.50 L Hgb 10.3 L Hct 30.5 L MCV 87.0 MCH 29.5 MCHC 33.9 RDW 16.2 H Plt Count 249 MPV 7.8 Neutrophils % 43.0 Lymphocytes % 43.4 H Monocytes % 7.3 Eosinophils % 5.6 H Basophils % 0.7 ESR PT with INR INR PTT (Actin FS) D-Dimer Puncture Site ABG pH ABG pCO2 at Pt Temp ABG pO2 at Pt Temp ABG HCO3 ABG O2 Sat (Measured) ABG O2 Content ABG Base Excess Markus Test Carboxyhemoglobin Methemoglobin O2 Delivery Device Oxygen Flow Rate Sodium 137 Potassium 3.8 Chloride 101 Carbon Dioxide 28 Anion Gap 8 BUN 21 H Creatinine 0.8 Creat Clearance w eGFR > 60 POC Glucometer 135 Random Glucose 160 H D Hemoglobin A1c % Lactic Acid Calcium 8.7 Phosphorus Magnesium Total Bilirubin 0.4 AST 36 ALT 54 Alkaline Phosphatase 120 H Creatine Kinase Troponin I C-Reactive Protein 0.3 B-Natriuretic Peptide Total Protein 7.1 Albumin 2.7 L Lipase TSH Urine Color Urine Appearance Urine pH Ur Specific [place] Urine Protein Urine Glucose (UA) Urine Ketones Urine Blood Urine Nitrite Urine Bilirubin Urine Urobilinogen Ur Leukocyte Esterase Urine WBC (Auto) Urine RBC (Auto) Ur Epithelial Cells Opiates Screen Methadone Screen Barbiturate Screen Phencyclidine Screen Ur Amphetamines Screen MDMA (Ecstasy) Screen Benzodiazepines Screen Cocaine Screen U Marijuana (THC) Screen Acetone, Qual 09/24/17 09/24/17 09/24/17 06:30 11:26 14:41 WBC RBC Hgb Hct MCV MCH MCHC RDW Plt Count MPV Neutrophils % Lymphocytes % Monocytes % Eosinophils % Basophils % ESR 34 H PT with INR INR PTT (Actin FS) D-Dimer Puncture Site ABG pH ABG pCO2 at Pt Temp ABG pO2 at Pt Temp ABG HCO3 ABG O2 Sat (Measured) ABG O2 Content ABG Base Excess Markus Test Carboxyhemoglobin Methemoglobin O2 Delivery Device Oxygen Flow Rate Sodium Potassium Chloride Carbon Dioxide Anion Gap BUN Creatinine Creat Clearance w eGFR POC Glucometer 231 170 Random Glucose Hemoglobin A1c % Lactic Acid Calcium Phosphorus Magnesium Total Bilirubin AST ALT Alkaline Phosphatase Creatine Kinase Troponin I C-Reactive Protein B-Natriuretic Peptide Total Protein Albumin Lipase TSH Urine Color Urine Appearance Urine pH Ur Specific [place] Urine Protein Urine Glucose (UA) Urine Ketones Urine Blood Urine Nitrite Urine Bilirubin Urine Urobilinogen Ur Leukocyte Esterase Urine WBC (Auto) Urine RBC (Auto) Ur Epithelial Cells Opiates Screen Methadone Screen Barbiturate Screen Phencyclidine Screen Ur Amphetamines Screen MDMA (Ecstasy) Screen Benzodiazepines Screen Cocaine Screen U Marijuana (THC) Screen Acetone, Qual 09/24/17 09/24/17 09/25/17 17:59 20:54 05:00 WBC RBC Hgb Hct MCV MCH MCHC RDW Plt Count MPV Neutrophils % Lymphocytes % Monocytes % Eosinophils % Basophils % ESR PT with INR INR PTT (Actin FS) D-Dimer Puncture Site ABG pH ABG pCO2 at Pt Temp ABG pO2 at Pt Temp ABG HCO3 ABG O2 Sat (Measured) ABG O2 Content ABG Base Excess Markus Test Carboxyhemoglobin Methemoglobin O2 Delivery Device Oxygen Flow Rate Sodium 135 L Potassium 4.2 Chloride 100 Carbon Dioxide 28 Anion Gap 7 L BUN 26 H D Creatinine 0.9 Creat Clearance w eGFR POC Glucometer 323 200 Random Glucose 452 H* D Hemoglobin A1c % Lactic Acid Calcium 8.1 L Phosphorus Magnesium Total Bilirubin AST ALT Alkaline Phosphatase Creatine Kinase Troponin I C-Reactive Protein B-Natriuretic Peptide Total Protein Albumin Lipase TSH Urine Color Urine Appearance Urine pH Ur Specific [place] Urine Protein Urine Glucose (UA) Urine Ketones Urine Blood Urine Nitrite Urine Bilirubin Urine Urobilinogen Ur Leukocyte Esterase Urine WBC (Auto) Urine RBC (Auto) Ur Epithelial Cells Opiates Screen Methadone Screen Barbiturate Screen Phencyclidine Screen Ur Amphetamines Screen MDMA (Ecstasy) Screen Benzodiazepines Screen Cocaine Screen U Marijuana (THC) Screen Acetone, Qual 09/25/17 09/25/17 09/25/17 06:30 06:30 11:10 WBC 6.0 RBC 3.28 L Hgb 9.8 L Hct 28.8 L MCV 87.8 MCH 29.9 MCHC 34.1 RDW 16.4 H Plt Count 239 MPV 7.9 Neutrophils % 41.3 L Lymphocytes % 45.4 H Monocytes % 7.8 Eosinophils % 4.8 H Basophils % 0.7 ESR PT with INR INR PTT (Actin FS) D-Dimer Puncture Site ABG pH ABG pCO2 at Pt Temp ABG pO2 at Pt Temp ABG HCO3 ABG O2 Sat (Measured) ABG O2 Content ABG Base Excess Markus Test Carboxyhemoglobin Methemoglobin O2 Delivery Device Oxygen Flow Rate Sodium 139 Potassium 4.1 Chloride 101 Carbon Dioxide 28 Anion Gap 10 BUN 21 H Creatinine 0.6 L D Creat Clearance w eGFR POC Glucometer 158 Random Glucose 199 H D Hemoglobin A1c % Lactic Acid Calcium 8.4 L Phosphorus Magnesium Total Bilirubin AST ALT Alkaline Phosphatase Creatine Kinase Troponin I C-Reactive Protein B-Natriuretic Peptide Total Protein Albumin Lipase TSH Urine Color Urine Appearance Urine pH Ur Specific [place] Urine Protein Urine Glucose (UA) Urine Ketones Urine Blood Urine Nitrite Urine Bilirubin Urine Urobilinogen Ur Leukocyte Esterase Urine WBC (Auto) Urine RBC (Auto) Ur Epithelial Cells Opiates Screen Methadone Screen Barbiturate Screen Phencyclidine Screen Ur Amphetamines Screen MDMA (Ecstasy) Screen Benzodiazepines Screen Cocaine Screen U Marijuana (THC) Screen Acetone, Qual 09/25/17 09/25/17 09/25/17 17:26 18:37 18:50 WBC RBC Hgb Hct MCV MCH MCHC RDW Plt Count MPV Neutrophils % Lymphocytes % Monocytes % Eosinophils % Basophils % ESR PT with INR INR PTT (Actin FS) D-Dimer Puncture Site ABG pH ABG pCO2 at Pt Temp ABG pO2 at Pt Temp ABG HCO3 ABG O2 Sat (Measured) ABG O2 Content ABG Base Excess Markus Test Carboxyhemoglobin Methemoglobin O2 Delivery Device Oxygen Flow Rate Sodium 133 L Potassium 4.2 Chloride 98 Carbon Dioxide 25 Anion Gap 10 BUN 24 H Creatinine 1.1 D Creat Clearance w eGFR POC Glucometer 564 504 Random Glucose 468 H* D Hemoglobin A1c % Lactic Acid Calcium 8.2 L Phosphorus Magnesium Total Bilirubin AST ALT Alkaline Phosphatase Creatine Kinase Troponin I C-Reactive Protein B-Natriuretic Peptide Total Protein Albumin Lipase TSH Urine Color Urine Appearance Urine pH Ur Specific [place] Urine Protein Urine Glucose (UA) Urine Ketones Urine Blood Urine Nitrite Urine Bilirubin Urine Urobilinogen Ur Leukocyte Esterase Urine WBC (Auto) Urine RBC (Auto) Ur Epithelial Cells Opiates Screen Methadone Screen Barbiturate Screen Phencyclidine Screen Ur Amphetamines Screen MDMA (Ecstasy) Screen Benzodiazepines Screen Cocaine Screen U Marijuana (THC) Screen Acetone, Qual 09/25/17 09/26/17 09/26/17 21:49 01:56 05:36 WBC RBC Hgb Hct MCV MCH MCHC RDW Plt Count MPV Neutrophils % Lymphocytes % Monocytes % Eosinophils % Basophils % ESR PT with INR INR PTT (Actin FS) D-Dimer Puncture Site ABG pH ABG pCO2 at Pt Temp ABG pO2 at Pt Temp ABG HCO3 ABG O2 Sat (Measured) ABG O2 Content ABG Base Excess Markus Test Carboxyhemoglobin Methemoglobin O2 Delivery Device Oxygen Flow Rate Sodium Potassium Chloride Carbon Dioxide Anion Gap BUN Creatinine Creat Clearance w eGFR POC Glucometer 434 263 46 Random Glucose Hemoglobin A1c % Lactic Acid Calcium Phosphorus Magnesium Total Bilirubin AST ALT Alkaline Phosphatase Creatine Kinase Troponin I C-Reactive Protein B-Natriuretic Peptide Total Protein Albumin Lipase TSH Urine Color Urine Appearance Urine pH Ur Specific [place] Urine Protein Urine Glucose (UA) Urine Ketones Urine Blood Urine Nitrite Urine Bilirubin Urine Urobilinogen Ur Leukocyte Esterase Urine WBC (Auto) Urine RBC (Auto) Ur Epithelial Cells Opiates Screen Methadone Screen Barbiturate Screen Phencyclidine Screen Ur Amphetamines Screen MDMA (Ecstasy) Screen Benzodiazepines Screen Cocaine Screen U Marijuana (THC) Screen Acetone, Qual 09/26/17 09/26/17 09/26/17 06:03 06:20 06:20 WBC 6.1 RBC 3.67 L Hgb 10.9 L D Hct 31.7 L MCV 86.4 MCH 29.8 MCHC 34.5 RDW 16.5 H Plt Count 262 MPV 7.7 Neutrophils % 51.8 D Lymphocytes % 34.7 D Monocytes % 8.7 Eosinophils % 3.8 Basophils % 1.0 ESR PT with INR INR PTT (Actin FS) D-Dimer Puncture Site ABG pH ABG pCO2 at Pt Temp ABG pO2 at Pt Temp ABG HCO3 ABG O2 Sat (Measured) ABG O2 Content ABG Base Excess Markus Test Carboxyhemoglobin Methemoglobin O2 Delivery Device Oxygen Flow Rate Sodium 138 Potassium 4.0 Chloride 99 Carbon Dioxide 32 D Anion Gap 7 L BUN 20 H Creatinine 0.6 L D Creat Clearance w eGFR > 60 POC Glucometer 103 Random Glucose 152 H D Hemoglobin A1c % Lactic Acid Calcium 8.7 Phosphorus Magnesium Total Bilirubin 0.3 D AST 107 H D ALT 102 H D Alkaline Phosphatase 120 H Creatine Kinase Troponin I C-Reactive Protein B-Natriuretic Peptide Total Protein 7.4 Albumin 2.8 L Lipase TSH Urine Color Urine Appearance Urine pH Ur Specific [place] Urine Protein Urine Glucose (UA) Urine Ketones Urine Blood Urine Nitrite Urine Bilirubin Urine Urobilinogen Ur Leukocyte Esterase Urine WBC (Auto) Urine RBC (Auto) Ur Epithelial Cells Opiates Screen Methadone Screen Barbiturate Screen Phencyclidine Screen Ur Amphetamines Screen MDMA (Ecstasy) Screen Benzodiazepines Screen Cocaine Screen U Marijuana (THC) Screen Acetone, Qual dehydrated, anmeami, hyperglycemia Assessment: 09/26/17 10:51 d/c today, consider [id number] lisinopril for htn in a diabetic, clonidine was ordered for withdrawl sx but he is table on suboxone 8mg daily, rx sent, f/[facility], need pcp appt schedduled for d/c follow up of HTN.
[2017-09-26] MEDS ORDERED: LISINOPRIL 10 MG TABLET (FP) PO SCH (11:00)
[2017-09-26] MEDS ORDERED: INSULIN (NOVOLOG) ASPART 100 UNITS/ML 10ML VIAL ONE (11:09)
--- NOTE | 2017-09-26 11:48 | PN ---
Teaching Attending Note Name of Resident: Lizbeth Saldana ATTENDING PHYSICIAN STATEMENT I saw and evaluated the patient. I reviewed the resident's note and discussed the case with the resident. I agree with the resident's findings and plan as documented. SUBJECTIVE:states continues to have pain but slowly improving. did have "shakes " when his sugar was found to be 49this AM which resolved with juice. states his sugars are very controlled at home and does not have these wide fluctuations. asymptomatic at this time. denies CP, SOB, fever, chills, N/V/C/D OBJECTIVE: Last Vital Signs Temp Pulse Resp BP Pulse Ox 98.1 F 86 18 154/90 96 09/26/17 09:40 09/26/17 10:40 09/26/17 10:40 09/26/17 10:40 09/26/17 09:00 General NAD CV S1 S2 RRR no murmur/rub/gallop + chest wall tenderness ASSESSMENT AND PLAN: 21 yo M with PMhx of Type I DM, Hep C, IVDU (heroine/Cocaine) prior MRSA bacteremia with septic pulmonary emboli, left AMA without completing full antibiotic course, comes back with chest pain/shortness of breath. 1. MRSA bacteremia with septic emboli- completed abx treatment. Bone scan showing osteoblastic lesion in the manubrium which is likely due to septic emboli but can not r/o OM or neoplastic disease alhtough less liekly given his CT in July 2017 which was negative for disease. ESR trending down with no fevers or leukocytosis. spoke with IR who will f/u with pt as outpatient for bx and further imaging. awaiting to discuss plan with ID. 3. acute transaminitis- possible due to HTN period but has hx of HCV and fluctuations in liver functioning. will repeat labs to ensure they are stable. will need close monitoring as outpatient 4. Sinus tachycardia-CTA neg for PE. Echo done. cardio evaluated. no further workup 5. DM- uncontrolled. with hyperglycemia in the evening and symptomatic hypoglycemia this AM. was started on levemir 10 untis prior to each meal? as well as increased levemir dosing last night causing episode this AM. states he is controlled at home and eats healthier at home. will monitor sugars to this afternoon. advise to go home on home regimen and document sugars closely and follow up [facility] legal records manager. has appt next week per pt. 6. HTN- elevated BP last night during hyperglycemia event. likely caused by that. consider starting agent if remains elevated 7. remote IVDA- on suboxone. relapsed with cocaine several days prior to presentation. denies IVDA. denies withdrawal symptoms. to f/u at [facility] on discharge 8. with Chest pain/Shortness of breath, CTA neg for concerns 9. Lactic acidosis- resolved 10. d/c today pending repeat labs this afternoon. counselled on importance of compliance and follow up. verbalized agreement with plan
--- NOTE | 2017-09-26 12:00 | PN ---
Progress Note, Physician History of Present Illness: Pleurisy improving, bone scan shows intense osteoblastic lesion manubrium uptake suspect septic emboli. - Current Medication List Current Medications: Active Medications Buprenorphine/Naloxone (Suboxone 8mg/2mg Sl Film -) 1 each SL DAILY [facility] Last Admin: 09/26/17 10:14 Dose: 1 each Docusate Sodium (Colace -) 100 mg PO BID [facility] Last Admin: 09/26/17 10:13 Dose: 100 mg Enoxaparin Sodium (Lovenox -) 40 mg SQ DAILY [facility] Last Admin: 09/26/17 10:13 Dose: 40 mg Ibuprofen (Motrin -) 600 mg PO Q6H PRN PRN Reason: FEVER Insulin Aspart (Novolog Vial Sliding Scale -) 1 vial SQ ACHS [facility] PRN Reason: Protocol Last Admin: 09/26/17 11:57 Dose: 8 units Insulin Detemir (Levemir Vial) 35 units SQ HS [facility] Last Admin: 09/25/17 22:51 Dose: 35 unit Lisinopril (Prinivil) 10 mg PO DAILY [facility] Last Admin: 09/26/17 11:04 Dose: 10 mg Multivit/Folic Acid/Iron ( Vitamins (Sjr) -) 1 tab PO DAILY [facility] Last Admin: 09/26/17 10:13 Dose: 1 tab Senna (Senna -) 2 tab PO HS ROBIN Thiamine HCl (Vitamin B1 -) 100 mg PO HS ROBIN Zolpidem Tartrate (Ambien -) 10 mg PO HS PRN PRN Reason: INSOMNIA - Objective Vital Signs: Vital Signs Temperature 98.1 F 09/26/17 09:40 Pulse Rate 86 09/26/17 10:40 Respiratory Rate 18 09/26/17 10:40 Blood Pressure 154/90 09/26/17 10:40 O2 Sat by Pulse Oximetry (%) 96 09/26/17 09:00 Constitutional: Yes: No Distress, Calm, Thin Neck: Yes: Supple Cardiovascular: Yes: Regular Rate and Rhythm Respiratory: Yes: Regular, Diminished Gastrointestinal: Yes: Normal Bowel Sounds, Soft Edema: No Labs: CBC, BMP 09/26/17 06:20 09/26/17 06:20 INR, PTT INR 0.90 (0.82-1.09) 09/20/17 21:22 Problem List - Problems (1) Septic embolism Code(s): I26.90 - SEPTIC PULMONARY EMBOLISM WITHOUT ACUTE COR PULMONALE (2) Cocaine dependence Code(s): F14.20 - COCAINE DEPENDENCE, UNCOMPLICATED Qualifiers: (3) Intravenous drug abuse Code(s): F19.10 - OTHER PSYCHOACTIVE SUBSTANCE ABUSE, UNCOMPLICATED (4) Opioid dependence on agonist therapy Code(s): F11.20 - OPIOID DEPENDENCE, UNCOMPLICATED Assessment/Plan 09/21/2017 Echo: Borderline dilated with low normal LV fxn, mod MR, mild TR, no vegetation 1. Pleurisy/shortness of breath improved 2. Manubrium osteoblastic activity suspect septic emboli 3. History of MRSA bacteremia with septic emboli completed antibiotic course 4. DM 5. IV drug abuse history 6. Lactic acidosis, resolved PLAN: 1. Continue detox protocol, counselled drug abuse abstinence 2. Since there is no evidence of active bacteremia, no clinical indications to proceed with PEG 3. Consider manubrium biopsy
[2017-09-26 12:57] LABS: ALBUMIN 3.1 g/dl (3.4-5.0); ANION GAP 7 (8-16); BLOOD UREA NITROGEN 20 mg/dL (7-18); CHLORIDE 95 mmol/L (98-107); CO2 31 mmol/L (21-32); CREATININE 0.7 mg/dL (0.7-1.3); POTASSIUM 4.6 mmol/L (3.5-5.1); SGOT/AST 134 U/L (15-37); SODIUM 133 mmol/L (136-145); TOT PROT 8.2 g/dl (6.4-8.2)
[2017-09-26 13:03] LABS: ALK PHOS 133 U/L (45-117); BILIRUBIN,TOTAL 0.3 mg/dL (0.2-1.0); SGPT/ALT 121 U/L (12-78)
[2017-09-26 13:08] LABS: GLUCOSE,RANDOM 306 mg/dL (74-106)
[2017-09-26 14:08] VITALS: BP 133/82; PULSE 104; TEMP 98.2
[2017-09-26] MEDS ORDERED: LINEZOLID 600 MG TABLET (RESTRICTED TO ID) PO SCH (14:30)
--- NOTE | 2017-09-26 14:57 | DS ---
Physical Exam: SUBJECTIVE: Patient seen and examined OBJECTIVE: Vital Signs Period Temp Pulse Resp BP Sys/Nolan Pulse Ox Last 24 Hr 97.8 F-98.6 F 86-105 18-20 133-154/76-109 96-96 PHYSICAL EXAM GENERAL: The patient is awake, alert, and fully oriented, in no acute distress. HEAD: Normal with no signs of trauma. EYES: PERRL, extraocular movements intact, sclera anicteric, conjunctiva clear. ENT: Ears normal, nares patent, oropharynx clear without exudates, moist mucous membranes. NECK: Trachea midline, full range of motion, supple. LUNGS: Breath sounds equal, clear to auscultation bilaterally, no wheezes, no crackles, no accessory muscle use. HEART: Regular rate and rhythm, S1, S2 without murmur, rub or gallop. ABDOMEN: Soft, nontender, nondistended, normoactive bowel sounds, no guarding, no rebound, no hepatosplenomegaly, no masses. EXTREMITIES: 2+ pulses, warm, well-perfused, no edema. NEUROLOGICAL: Cranial nerves II through XII grossly intact. Normal speech, gait not observed. PSYCH: Normal mood, normal affect. SKIN: Warm, dry, normal turgor, no rashes or lesions noted. LABS Laboratory Results - last 24 hr 09/25/17 09/25/17 09/25/17 17:26 18:37 18:50 WBC RBC Hgb Hct MCV MCH MCHC RDW Plt Count MPV Neutrophils % Lymphocytes % Monocytes % Eosinophils % Basophils % Sodium 133 L Potassium 4.2 Chloride 98 Carbon Dioxide 25 Anion Gap 10 BUN 24 H Creatinine 1.1 D Creat Clearance w eGFR POC Glucometer 564 504 Random Glucose 468 H* D Calcium 8.2 L Total Bilirubin AST ALT Alkaline Phosphatase Total Protein Albumin 09/25/17 09/26/17 09/26/17 21:49 01:56 05:36 WBC RBC Hgb Hct MCV MCH MCHC RDW Plt Count MPV Neutrophils % Lymphocytes % Monocytes % Eosinophils % Basophils % Sodium Potassium Chloride Carbon Dioxide Anion Gap BUN Creatinine Creat Clearance w eGFR POC Glucometer 434 263 46 Random Glucose Calcium Total Bilirubin AST ALT Alkaline Phosphatase Total Protein Albumin 09/26/17 09/26/17 09/26/17 06:03 06:20 06:20 WBC 6.1 RBC 3.67 L Hgb 10.9 L D Hct 31.7 L MCV 86.4 MCH 29.8 MCHC 34.5 RDW 16.5 H Plt Count 262 MPV 7.7 Neutrophils % 51.8 D Lymphocytes % 34.7 D Monocytes % 8.7 Eosinophils % 3.8 Basophils % 1.0 Sodium 138 Potassium 4.0 Chloride 99 Carbon Dioxide 32 D Anion Gap 7 L BUN 20 H Creatinine 0.6 L D Creat Clearance w eGFR > 60 POC Glucometer 103 Random Glucose 152 H D Calcium 8.7 Total Bilirubin 0.3 D AST 107 H D ALT 102 H D Alkaline Phosphatase 120 H Total Protein 7.4 Albumin 2.8 L 09/26/17 09/26/17 09/26/17 11:05 11:59 13:31 WBC RBC Hgb Hct MCV MCH MCHC RDW Plt Count MPV Neutrophils % Lymphocytes % Monocytes % Eosinophils % Basophils % Sodium 133 L Potassium 4.6 Chloride 95 L Carbon Dioxide 31 Anion Gap 7 L BUN 20 H Creatinine 0.7 Creat Clearance w eGFR > 60 POC Glucometer 322 233 Random Glucose 306 H* D Calcium 9.0 Total Bilirubin 0.3 AST 134 H D ALT 121 H Alkaline Phosphatase 133 H Total Protein 8.2 Albumin 3.1 L HOSPITAL COURSE: Date of Admission:09/20/17 Date of Discharge: 09/26/17 Discharge Summary Reason For Visit: ACUTE KIDNEY INJURY/INTRAVENOUS DRUG ABUSE Current Active Problems Acute kidney injury (Acute) Cocaine dependence (Acute) DKA, type 1 (Acute) Intravenous drug abuse (Acute) Opioid dependence on agonist therapy (Acute) Septic embolism (Acute) Methamphetamine dependence (Chronic) Condition: Stable - Instructions Diet, Activity, Other Instructions: You were admitted to the hospital due to elevated sugars and abnormal blood work (acidosis). A bone scan found increased bone cell activity that is likely due to an infection. You were started on antibiotics. Recommendations: -Check your sugars every morning and before each meal. Use your regular Insulin sliding scale as previously directed. If your sugars are persistently above 200 or above 400, call your doctor. -Eat a diet low in sugars and carbohydrate (avoid candy, soda, alcohol, chips, pasta, bread). Medications: Continue your regular home medications with the following changes: -Take Long acting Glargine 8U in the morning before breakfast and 30U at night before bedtime. Use your regular home Insulin sliding scale for meal coverage as previously directed. -Continue taking your Suboxone daily. -Take Linezolid (an antibiotic) 600mg two times per day (12 hours apart) for 3 weeks. Your first dose will be this evening, and your last dose will be in the evening of October 17. It is important that you complete the entire 3 week course. -Take Lisinopril 5mg daily for high blood pressure. If you develop cough, lip or tongue swelling, STOP taking this medication and notify your doctor. Follow-ups: -Make an appointment with your primary care physician or at our [facility] (Dr. Rodriguez). Have your liver function tested in 1 week. Have your blood pressure checked as well. -Make an appointment to see Dr. Lazo, your Roller Skates Assembler, in 1 week for post- hospitalization evaluation and review of your blood sugar management. -Follow-up with Dr. Manuel and Miguel Harris for outpatient drug rehab. You will be able to receive your Suboxone prescription from them. -Make an appointment to see a Dentist for your tooth pain. -As discussed, an abnormal finding was found on imaging of your sternum. It is likely related to an infection, which is being treated with antibiotics. There is a small possibility it could be a type of bone cancer. Let your doctors know about this finding. You should have a repeat imaging performed. A referral to Dr. Phelps is also provided to arrange for a bone biopsy. Please return to the Emergency Department if you have fever, chills, worsening chest pain, shortness of breath, blood sugars over 400 or any new, worsening, or concerning symptoms. Referrals: Osman Rodriguez MD [Staff Physician] - Leigh Bartlett RES [Resident] - 1 Week Frank Rojas MD [Staff Physician] - Daniel Massey MD [Staff Physician] - Win Lazo [Non Staff, Medical] - 1 Week Disposition: HOME - Home Medications Comprehensive Discharge Medication List: Ambulatory Orders Insulin Aspart [Novolog] 100 unit SQ ASDIR 07/01/15 Zolpidem Tartrate [Ambien] 10 mg PO HS 09/20/17 Buprenorphine/Naloxone [Suboxone 8Mg/2Mg Sl Film -] 1 each SL DAILY #30 film MDD 1 09/24/17 Insulin Glargine,Hum.rec.anlog [Lantus Solostar PEN -] 8 units SQ DAILY #1 pen 09/26/17 Insulin Glargine,Hum.rec.anlog [Lantus Solostar PEN -] 30 units SQ HS #1 ea Linezolid [Zyvox (Restricted To Id) -] 600 mg PO BID #22 tablet 09/26/17 Lisinopril [Prinivil] 10 mg PO DAILY #30 tablet 09/26/17 - Discharge Referral Referred to [facility] No
[2017-09-26] MEDS ORDERED: THIAMINE HCL 100 MG TABLET (FP) PO SCH (22:00)
[2017-09-26] MEDS ORDERED: SENNOSIDES 8.6MG TABLET (FP) PO SCH (22:00)
[2017-09-27] MEDS ORDERED: LINEZOLID 600 MG TABLET (RESTRICTED TO ID) PO SCH ×2 (10:00)
== END 2017-09-26 16:15 | disposition home or self-care (01) | DRG 134 ==
LOC: JER 20:31 → JERBED 23:11 → J4W 09-21 11:41 → J7W 09-25 18:55
PROVIDERS: ADMIT Internal Medicine; ATTEND Internal Medicine
DX: I26.90 Septic pulmonary embolism without acute cor pulmonale (principal); N17.9 Acute kidney failure, unspecified; R07.89 Other chest pain; F14.20 Cocaine dependence, uncomplicated; B19.20 Unspecified viral hepatitis C without hepatic coma; E10.8 Type 1 diabetes mellitus with unspecified complications; F17.200 Nicotine dependence, unspecified, uncomplicated; E87.2 Acidosis; R00.0 Tachycardia, unspecified; E86.1 Hypovolemia; F19.10 Other psychoactive substance abuse, uncomplicated; F10.10 Alcohol abuse, uncomplicated; E86.0 Dehydration; R78.81 Bacteremia; I08.1 Rheumatic disorders of both mitral and tricuspid valves; D64.9 Anemia, unspecified; E88.09 Other disorders of plasma-protein metabolism, not elsewhere classified; F11.20 Opioid dependence, uncomplicated; Z91.14 Patient's other noncompliance with medication regimen; Z86.14 Personal history of Methicillin resistant Staphylococcus aureus infection
CPT/HCPCS: 36415; 36600; 71275-TC; 74177-TC; 78306-TC; 80048; 80053; 80307; 81003; 81015; 82009; 82375; 82550; 82803; 82962; 83036; 83050; 83605; 83690; 83735; 83880; 84100; 84443; 84484; 85025; 85379; 85610; 85651; 85730; 86140; 87040; 87081; 87086; 87804; 93005; 93010; 93306-TC; 99285-25; A9503; J0735; J0878; J3480; J7030

== ENCOUNTER 2017-10-24 07:36 | Inpatient (IN) | payer OTHER ==
[2017-10-24 07:47] VITALS: BMI 23.9
--- NOTE | 2017-10-24 08:02 | PDOC ---
History of Present Illness - General Chief Complaint: Blood Sugar Problem Stated Complaint: DIFFICULTY BREATHING,VOMITING Time Seen by Provider: 10/24/17 07:54 Past History - Past Medical History Allergies/Adverse Reactions: Allergies Allergy/AdvReac Type Severity Reaction Status Date / Time fish derived Allergy Verified 10/24/17 07:41 fish Allergy Uncoded 10/24/17 07:41 Home Medications: Ambulatory Orders Insulin Aspart [Novolog] 100 unit SQ ASDIR 07/01/15 Zolpidem Tartrate [Ambien] 10 mg PO HS 09/20/17 Buprenorphine/Naloxone [Suboxone 8Mg/2Mg Sl Film -] 1 each SL DAILY #30 film MDD 1 09/24/17 Insulin Glargine,Hum.rec.anlog [Lantus Solostar PEN -] 8 units SQ DAILY #1 pen 09/26/17 Insulin Glargine,Hum.rec.anlog [Lantus Solostar PEN -] 30 units SQ HS #1 ea Linezolid [Zyvox (Restricted To Id) -] 600 mg PO BID #22 tablet 09/26/17 Lisinopril [Prinivil] 10 mg PO DAILY #30 tablet 09/26/17 Anemia: No Asthma: No Cancer: No Cardiac Disorders: No CVA: No COPD: No CHF: No Diabetes: Yes (Type 1 on Humolog and Lantus) GI Disorders: No Disorders: No HTN: No Hypercholesterolemia: No Kidney Stones: No Liver Disease: No Seizures: No - Surgical History Abdominal Surgery: No Appendectomy: No Cardiac Surgery: No Cholecystectomy: No Lung Surgery: No Neurologic Surgery: No Orthopedic Surgery: No - Reproductive History Testicular Surgery: No - Immunization History Immunization Up to Date: Yes - Suicide/Smoking/Psychosocial Hx Smoking History: Current every day smoker Have you smoked in the past 12 months: No Number of Cigarettes Smoked Daily: 20 Information on smoking cessation initiated: No 'Breaking Loose' booklet given: 07/03/17 Hx Alcohol Use: No Drug/Substance Use Hx: Yes Substance Use Type: Heroin Hx Substance Use Treatment: Yes (suboxone) *Physical Exam - Vital Signs Last Vital Signs Temp Pulse Resp BP Pulse Ox 97.6 F 151 H 22 121/86 100 10/24/17 07:42 10/24/17 07:42 10/24/17 07:42 10/24/17 07:42 10/24/17 07:42
[2017-10-24] MEDS ORDERED: SODIUM CHLORIDE 1,000 ML IV STA ×2 (08:09)
--- NOTE | 2017-10-24 08:25 | PDOC ---
Attending Attestation - [facility] HPI: 10/24/17 08:40 The patient is a 21 year old male, with a significant past medical history of diabetes( on Lantus and Novolog), Hepatitis C and IV drug abuse(heroin), who presents to the emergency department with nausea, vomiting, and headache since last night. The patient reports he is on Suboxone for heroin use, and states he ran out, and subsequently sniffed heroin yesterday afternoon. Since then patient reports developing shortness of breath, nausea, and vomiting(nonbloody/ nonbilious), but denies any abdominal pain, diarrhea, or constipation. He denies any chest pain, diaphoresis, or palpitations. He reports a headache, but denies any fever, chills, dizziness, or lightheadedness. No recent travel or sick contacts. Allergies: NKDA - Physicial Exam PE: 10/24/17 08:41 Constitutional: Awake, alert, oriented. No acute distress. Head: Normocephalic. Atraumatic Eyes: PERRL. EOMI. Conjunctivae are not pale. ENT: Mucous membranes are dry and intact. Posterior pharynx without exudates or erythema. Uvula midline. Neck: Supple. Full ROM. No lymphadenopathy. Cardiovascular: Tachycardic. Regular rhythm. S1, S2 regular. Distal pulses are 2+ and symmetric. Pulmonary/Chest: No evidence of respiratory distress. Clear to auscultation bilaterally No wheezing, rales or rhonchi. Abdominal: Mild diffuse abdominal tenderness. Soft and non-distended. No rebound, guarding or rigidity. No organomegaly. No palpable masses. Good bowel sounds. Back: No CVA tenderness. Musculoskeletal: No edema. No cyanosis. No clubbing. Full range of motion in all extremities. No calf tenderness. Radial/pedal pulses are intact and 2+ bilaterally Skin: Skin is warm and dry. No petechiae. No purpura. Neurological: Alert and oriented to person, place, and time. Cranial nerves II -XII are grossly intact. Normal speech. Strength is grossly symmetric. No sensory deficits. Psychiatric: Good eye contact. Normal interaction, affect and behavior. - Medical Decision Making 10/24/17 08:41 Documentation prepared by Ludmila Chakraborty, acting as medical transcriber for Loretta Anderson DO. <Ludmila Chakraborty - Last Filed: 10/24/17 09:04> - Resident Resident Name: [email or web address] - ED Attending Attestation I have performed the following: I have examined & evaluated the patient, The case was reviewed & discussed with the resident, I agree w/resident's findings & plan, Exceptions are as noted - Critical Care Time Total Critical Care Time: 30 Critical Care Statement: The care of this patient involved high complexity decision making to prevent further life threatening deterioration of the patient 's condition and/or to evaluate & treat vital organ system(s) failure or risk of failure. - Medical Decision Making 10/24/17 08:25 I, Dr. Loretta Anderson, DO, attest that this document has been prepared under my direction and personally reviewed by me in its entirety. I further attest, that it accurately reflects all work, treatment, procedures and medical decision -making performed by me. 10/24/17 09:01 a/p: 21yo male with heroin use yesterday (snorts) and hx of DM - last insulin yesterday -n/v today -cough -tachy on exam -ran out of suboxone -will check labs to ensure pt is not in DKA -ua, uds -ekg -will hydrate with IVF hydration -will monitor and reassess 10/24/17 09:50 pt with evangelista dka agma will need ICU admission Dr. Win Lazo is PMD - [facility] 10/24/17 09:[address] Davis who accepts pt to service resident discussed the case with Dr. Belle from ICU who accepts pt to ICU. insulin gtt ordered <Loretta Anderson - Last Filed: 10/24/17 09:54> Heart Score/ECG Review - ECG Intrepretation Comment:: 10/24/17 09:02 sinus tach at 123, nl axis, nl interval, p wave inversions anterior leads <Loretta Anderson - Last Filed: 10/24/17 09:54>
[2017-10-24 08:35] LABS: VENOUS PC02 35.9 mmHg (38-52); VENOUS PH 7.24 (7.32-7.42); VENOUS PO2 29.9 mmHg (28-48)
[2017-10-24 08:43] LABS: BASO % 0.3 % (0-2.0); HEMATOCRIT 45.4 % (35.4-49); HEMOGLOBIN 13.8 GM/dL (11.7-16.9); LYMPH % 10.7 % (8-40); MCHC 30.5 g/dl (32.0-35.9); MEAN PLT VOLUME 8.4 fl (7.5-11.1); MONO % 3.7 % (3.8-10.2); NEUT % 85.3 % (42.8-82.8); PLATELET COUNT 370 K/MM3 (134-434); RBC 4.78 M/mm3 (4.00-5.60); RDW 16.6 % (11.9-15.9); WHITE BLOOD COUNT 12.4 K/mm3 (4.0-10.0)
--- NOTE | 2017-10-24 08:46 | PDOC ---
History of Present Illness <Loretta Anderson - Last Filed: 10/24/17 09:55> - History of Present Illness Initial Comments: 10/24/17 08:39 21 yo M with h/o IDDM, IVDA, Heroin abuse, Hep C, who p/w SOB. Patient reports worsening SOB, diaphoresis, nausea with one episode of bilous, non bloody emesis within past 24 hours. + dry mouth. States that he is on Suboxone 8 mg QD ( prescribed from [facility]) and ran out two days ago. Reports s"sniffing" heroin use yesterday morning. Patient reports compliance with 30 mg Lantus 0900AM QD, and sliding scale Novolg with 30 U yesterday evening. Denies F/C, CP, cough, leg swelling, palpitations, abdominal pain, diarrhea, constipation, urinary complaints, weakness, lightheadedness, sensory changes. PMHx: as noted above. Recent L AC fossa abscess. Recent MRSA baceremia with septic PE completed Cefepime/Dapto. [facility] ICU DKA admissions. Chest CTA (05/28) with no evidence of PE. ROS: as noted above SHx: H/o IVDA. Cocaine and Heroin use on Suboxone. Tobacco use 1 ppd for 4 years. Denies EtoH Allergies: NKDA <Lacho Herrera - Last Filed: 10/24/17 10:19> - General Chief Complaint: Blood Sugar Problem Stated Complaint: DIFFICULTY BREATHING,VOMITING Time Seen by Provider: 10/24/17 07:54 Past History <Loretta Anderson - Last Filed: 10/24/17 09:55> - Past Medical History Anemia: No Asthma: No Cancer: No Cardiac Disorders: No CVA: No COPD: No CHF: No Diabetes: Yes (Type 1 on Humolog and Lantus) GI Disorders: No Disorders: No HTN: No Hypercholesterolemia: No Kidney Stones: No Liver Disease: No Seizures: No - Surgical History Abdominal Surgery: No Appendectomy: No Cardiac Surgery: No Cholecystectomy: No Lung Surgery: No Neurologic Surgery: No Orthopedic Surgery: No - Reproductive History Testicular Surgery: No - Immunization History Immunization Up to Date: Yes - Suicide/Smoking/Psychosocial Hx Smoking History: Current every day smoker Have you smoked in the past 12 months: No Number of Cigarettes Smoked Daily: 20 Information on smoking cessation initiated: No 'Breaking Loose' booklet given: 07/03/17 Hx Alcohol Use: No Drug/Substance Use Hx: Yes Substance Use Type: Heroin Hx Substance Use Treatment: Yes (suboxone) <Lacho Herrera - Last Filed: 10/24/17 10:19> - Past Medical History Allergies/Adverse Reactions: Allergies Allergy/AdvReac Type Severity Reaction Status Date / Time fish derived Allergy Verified 10/24/17 07:41 fish Allergy Uncoded 10/24/17 07:41 Home Medications: Ambulatory Orders Insulin Aspart [Novolog] 100 unit SQ ASDIR 07/01/15 Zolpidem Tartrate [Ambien] 10 mg PO HS 09/20/17 Buprenorphine/Naloxone [Suboxone 8Mg/2Mg Sl Film -] 1 each SL DAILY #30 film MDD 1 09/24/17 Insulin Glargine,Hum.rec.anlog [Lantus Solostar PEN -] 8 units SQ DAILY #1 pen 09/26/17 Insulin Glargine,Hum.rec.anlog [Lantus Solostar PEN -] 30 units SQ HS #1 ea Linezolid [Zyvox (Restricted To Id) -] 600 mg PO BID #22 tablet 09/26/17 Lisinopril [Prinivil] 10 mg PO DAILY #30 tablet 09/26/17 Review of Systems - Review of Systems Comments:: 10/24/17 08:46 GENERAL/CONSTITUTIONAL: No fever or chills. No weakness. HEAD, EYES, EARS, NOSE AND THROAT: + Dry mouth. No change in vision. No ear pain or discharge. No sore throat. CARDIOVASCULAR: + SOB. No chest pain. RESPIRATORY: No cough, wheezing, or hemoptysis. GASTROINTESTINAL:+ nausea, and vomiting. No diarrhea or constipation. GENITOURINARY: No dysuria, frequency, or change in urination. MUSCULOSKELETAL: No joint or muscle swelling or pain. No neck or back pain. SKIN: No rash NEUROLOGIC: + headache. No vertigo, loss of consciousness, or change in strength/sensation. ENDOCRINE: +increased thirst. No abnormal weight change HEMATOLOGIC/LYMPHATIC: No anemia, easy bleeding, or history of blood clots. ALLERGIC/IMMUNOLOGIC: No hives or skin allergy. <Lacho Herrera - Last Filed: 10/24/17 10:19> *Physical Exam - Vital Signs Last Vital Signs Temp Pulse Resp BP Pulse Ox 97.6 F 151 H 22 121/86 98 10/24/17 07:42 10/24/17 07:42 10/24/17 07:42 10/24/17 07:42 10/24/17 09:01 <MonicaLoretta - Last Filed: 10/24/17 09:55> - Vital Signs Last Vital Signs Temp Pulse Resp BP Pulse Ox 97.6 F 151 H 22 121/86 100 10/24/17 07:42 10/24/17 07:42 10/24/17 07:42 10/24/17 07:42 10/24/17 07:42 - Physical Exam Comments: 10/24/17 08:47 GENERAL: Awake, alert, and fully oriented. HEAD: No signs of trauma, normocephalic, atraumatic EYES: PERRLA, EOMI, sclera anicteric, conjunctiva clear ENT: Dry mucous membranes. Auricles normal inspection, hearing grossly normal, nares patent, oropharynx clear without exudates. NECK: Normal ROM, supple, no lymphadenopathy, JVD, or masses LUNGS: No distress, speaks full sentences, clear to auscultation bilaterally HEART: Regular rate and rhythm, normal S1 and S2, no murmurs, rubs or gallops, peripheral pulses normal and equal bilaterally. ABDOMEN: Soft, nontender, normoactive bowel sounds. No guarding, no rebound. No masses EXTREMITIES : + Track crook BL AC. Normal inspection, Normal range of motion, no edema. No clubbing or cyanosis. NEUROLOGICAL: Cranial nerves II through XII grossly intact. Normal speech, normal gait, no focal sensorimotor deficits SKIN: Warm, Dry, normal turgor, no rashes or lesions noted <Lacho Herrera - Last Filed: 10/24/17 10:19> ED Treatment Course - LABORATORY CBC & Chemistry Diagram: 10/24/17 08:10 10/24/17 08:10 - ADDITIONAL ORDERS Additional order review: Laboratory Results 10/24/17 10/24/17 10/24/17 08:16 08:11 08:10 VBG pH 7.24 L* POC VBG pCO2 35.9 L POC VBG pO2 29.9 Mixed VBG HCO3 14.7 L* Sodium 129 L Potassium 5.1 Chloride 81 L D Carbon Dioxide 16 L D Anion Gap 32 H BUN 51 H D Creatinine 2.5 H D Creat Clearance w eGFR 32.17 Random Glucose 854 H* D Lactic Acid 3.0 H* Calcium 9.3 Total Bilirubin 1.1 H D AST 30 D ALT 45 D Alkaline Phosphatase 213 H D Total Protein 10.1 H D Albumin 3.9 D Acetone, Qual 10/24/17 08:10 VBG pH POC VBG pCO2 POC VBG pO2 Mixed VBG HCO3 Sodium Potassium Chloride Carbon Dioxide Anion Gap BUN Creatinine Creat Clearance w eGFR Random Glucose Cancelled Lactic Acid Calcium Total Bilirubin AST ALT Alkaline Phosphatase Total Protein Albumin Acetone, Qual Cancelled 10/24/17 08:10 RBC 4.78 D MCV 95.0 D MCHC 30.5 L RDW 16.6 H MPV 8.4 Neutrophils % 85.3 H D Lymphocytes % 10.7 D Monocytes % 3.7 L Eosinophils % 0.0 D Basophils % 0.3 - Medications Given in the ED: ED Medications Discontinued Medications Generic Name Dose Route Start Last Admin Trade Name Freq PRN Reason Stop Dose Admin Buprenorphine/Naloxone 1 each 10/24/17 08:55 10/24/17 08:59 Suboxone 8mg/2mg Sl Film - SL 10/24/17 08:56 Not Given ONCE ONE Sodium Chloride 1,000 mls @ 1,000 mls/hr 10/24/17 08:09 10/24/17 08:47 Normal Saline - IV 10/24/17 09:08 1,000 mls/hr ASDIR STA Administration Sodium Chloride 1,000 mls @ 1,000 mls/hr 10/24/17 08:09 10/24/17 08:47 Normal Saline - IV 10/24/17 09:08 1,000 mls/hr ASDIR STA Administration Ondansetron HCl 4 mg 10/24/17 08:55 10/24/17 08:59 Zofran Injection IVPUSH 10/24/17 08:56 4 mg ONCE ONE Administration <Loretta Anderson - Last Filed: 10/24/17 09:55> - LABORATORY CBC & Chemistry Diagram: 10/24/17 08:10 10/24/17 08:10 - ADDITIONAL ORDERS Additional order review: Laboratory Results 10/24/17 08:11 VBG pH 7.24 L* POC VBG pCO2 35.9 L POC VBG pO2 29.9 Mixed VBG HCO3 14.7 L* - RADIOLOGY Radiology Studies Ordered: Category Date Time Status CHEST X-RAY PORTABLE* [RAD] Stat Radiology 10/24/17 08:00 Ordered <Lacho Herrera - Last Filed: 10/24/17 10:19> Medical Decision Making - Medical Decision Making 10/24/17 08:51 21 yo M with h/o IDDM, IVDA, Heroin abuse on Suboxone, Hep C, MRSA baceremia ( 2 /2 R arm abscess from IVDA) with septic PE completed Cefepime/Dapto who p/w SOB , and recent Heroin relapse (10-24-17). HR~151, AF, A&OX3. Patient with clinical s/s dehydration. Will IVF resuscitate. Will assess for hyper/ hypoglycemia, DKA, electrolyte abnml, toxic, acid-base and metabolic disturbances/derangements, and underlying infection. ED Course: WBC: 12.4 Anion gap: 32 Ph: 7.24 Glu: 854 NS 4 L Insulin drip 0.1 U/kg/Hr 10/24/17 09:44 Lactic acid~3.[address] to ICU Dr. Belle. 10/24/17 09:[address] Davis service. <Lacho Herrera - Last Filed: 10/24/17 10:19> *DC/Admit/Observation/Transfer - Discharge Dispostion Decision to Admit order: Yes <Loretta Anderson - Last Filed: 10/24/17 09:55> <Lacho Herrera - Last Filed: 10/24/17 10:19> Diagnosis at time of Disposition: Diabetic ketoacidosis, Heroin abuse, Acute kidney injury - Discharge Dispostion Condition at time of disposition: Critical
[2017-10-24] MEDS ORDERED: ONDANSETRON 4 MG/2 ML VIAL IVPUSH ONE (08:55)
[2017-10-24] MEDS ORDERED: BUPRENORPHINE/NALOXONE 8 MG/2 MG FILM PACKET SL ONE (08:55)
[2017-10-24] MEDS ORDERED: ONDANSETRON 4 MG/2 ML VIAL ONE (08:57)
[2017-10-24 09:05] LABS: ALBUMIN 3.9 g/dl (3.4-5.0); ANION GAP 32 (8-16); BILIRUBIN,TOTAL 1.1 mg/dL (0.2-1.0); BLOOD UREA NITROGEN 51 mg/dL (7-18); CALCIUM 9.3 mg/dL (8.5-10.1); CHLORIDE 81 mmol/L (98-107); CO2 16 mmol/L (21-32); CREATININE 2.5 mg/dL (0.7-1.3); POTASSIUM 5.1 mmol/L (3.5-5.1); SGOT/AST 30 U/L (15-37); SGPT/ALT 45 U/L (12-78); SODIUM 129 mmol/L (136-145); TOT PROT 10.1 g/dl (6.4-8.2)
[2017-10-24 09:06] LABS: ALK PHOS 213 U/L (45-117)
[2017-10-24] MEDS ORDERED: SODIUM CHLORIDE 0.9% 1000 ML INFUS.BAG IV ONE ×2 (09:11→09:12)
[2017-10-24 09:14] LABS: GLUCOSE,RANDOM 854 mg/dL (74-106)
[2017-10-24] MEDS ORDERED: INSULIN REGULAR 100 UNITS in SODIUM CHLORIDE 99 ML IVPB SCH ×3 (09:15→18:44)
[2017-10-24] MEDS ORDERED: INSULIN REGULAR HUMAN 100 UNITS/ML *VIAL ONE ×2 (09:48→09:50)
[2017-10-24 10:21] LABS: ACETONE SERUM POSITIVE MODERATE 2+ (NEGATIVE)
[2017-10-24 10:25] LABS: URINE APPEARANCE CLEAR; URINE BILIRUBIN NEGATIVE (<2.0 mg/dL); URINE COLOR STRAW; URINE GLUCOSE (UA) 3+ (NEGATIVE); URINE KETONE 2+ (NEGATIVE); URINE LEUK ESTERASE NEGATIVE (NEGATIVE); URINE NITRITE NEGATIVE (NEGATIVE); URINE PROTEIN NEGATIVE (NEGATIVE); URINE UROBILINOGEN NEGATIVE mg/dL (0.2-1.0)
[2017-10-24 10:30] LABS: BASO % 0.4 % (0-2.0); HEMATOCRIT 39.9 % (35.4-49); HEMOGLOBIN 12.6 GM/dL (11.7-16.9); LYMPH % 10.8 % (8-40); MCH 29.5 pg (25.7-33.7); MCHC 31.5 g/dl (32.0-35.9); MEAN CELL VOLUME 93.9 fl (80-96); MEAN PLT VOLUME 8.4 fl (7.5-11.1); MONO % 3.5 % (3.8-10.2); NEUT % 85.3 % (42.8-82.8); PLATELET COUNT 261 K/MM3 (134-434); RBC 4.25 M/mm3 (4.00-5.60); RDW 17.1 % (11.9-15.9); WHITE BLOOD COUNT 9.1 K/mm3 (4.0-10.0)
[2017-10-24 10:47] LABS: COCAINE, UR NEGATIVE ng/ml (CUTOFF=300); METHADONE, UR NEGATIVE ng/ml (CUTOFF=300); PHENCYCLIDINE,URINE NEGATIVE ng/ml (CUTOFF=25); URINE AMPHETAMINES NEGATIVE ng/ml (CUTOFF=500); URINE BARBITURATES NEGATIVE ng/ml (CUTOFF=200); URINE BENZODIAZEPINES NEGATIVE ng/ml (CUTOFF=200)
[2017-10-24 10:48] LABS: OPIATES, URI POSITIVE ng/ml (CUTOFF=300)
[2017-10-24 11:00] LABS: ALBUMIN 2.9 g/dl (3.4-5.0); ANION GAP 29 (8-16); BLOOD UREA NITROGEN 51 mg/dL (7-18); CALCIUM 7.7 mg/dL (8.5-10.1); CHLORIDE 92 mmol/L (98-107); CO2 13 mmol/L (21-32); LIPASE 92 U/L (73-393); MAGNESIUM 2.8 mg/dL (1.8-2.4); POTASSIUM 5.1 mmol/L (3.5-5.1); SGOT/AST 24 U/L (15-37); SGPT/ALT 33 U/L (12-78); SODIUM 134 mmol/L (136-145)
[2017-10-24 11:06] LABS: ALK PHOS 156 U/L (45-117); BILIRUBIN,TOTAL 0.6 mg/dL (0.2-1.0); CREATININE 2.1 mg/dL (0.7-1.3); TOT PROT 7.8 g/dl (6.4-8.2)
[2017-10-24 11:19] LABS: GLUCOSE,RANDOM 733 mg/dL (74-106)
--- NOTE | 2017-10-24 12:55 | CONSULT ---
Consultation: REQUESTING PROVIDER: CONSULT REQUEST: We have been asked to medically evaluate this patient for DKA. HISTORY OF PRESENT ILLNESS: 21M w/ hx of DM, DKA, IV drug use, PNA, MRSA, and abscess requiring I&D who presents with "high sugars." Pt reports that he last took his insulin last night at 9pm, and he is now out of insulin. His current regimen is lantus 30 units HS and ISS. This morning, his sugars were in the 500s. He endorses nausea , 1-2 episodes of NBNB emesis, dehydration, SOB, and abdominal pain. He denies fevers, chills, headache, chest pain, cough, diarrhea, constipation, and dysuria. He states that he "sniffed a bag of heroine yesterday," that he takes 8mg of suboxone daily, but he ran out of that as well. PMH: as stated above PSH: I&D for abscess Meds: as listed below Allergies: NKDA FH: denies SH: 1 PPD since age of 14. denies alcohol use. uses heroine, denies other drugs. Lives in home with mother. Home Medication List Medication Instructions Recorded Confirmed Type Insulin Aspart [Novolog] 100 unit SQ ASDIR 07/01/15 10/24/17 History Zolpidem Tartrate [Ambien] 10 mg PO HS 09/20/17 10/24/17 History Active Medications Generic Name Dose Route Start Last Admin Trade Name Freq PRN Reason Stop Dose Admin Buprenorphine/Naloxone 1 each 10/24/17 16:00 10/25/17 09:04 Suboxone 8mg/2mg Sl Film - SL 1 each DAILY ROBIN Administration Clonidine 0.1 mg 10/24/17 14:23 Catapres - PO Q12H PRN WITHDRAWAL(CONT SUBST) Diazepam 10 mg 10/24/17 15:55 10/24/17 22:43 Valium - PO 10 mg HS PRN Administration INSOMNIA Sodium Chloride 1,000 mls @ 100 mls/hr 10/24/17 21:30 10/25/17 07:49 Normal Saline - IV 100 mls/hr ASDIR ROBIN Administration Insulin Aspart 1 vial 10/24/17 22:00 10/25/17 07:19 Novolog Vial Sliding Scale - SQ Not Given ACHS ROBIN Protocol Insulin Detemir 15 units 10/25/17 10:00 Levemir Vial SQ DAILY PENDING SALE TO [facility] Multivit/Folic Acid/Iron 1 tab 10/25/17 10:00 10/25/17 09:04 Vitamins (Sjr) - PO 1 tab DAILY ROBIN Administration Thiamine HCl 100 mg 10/24/17 22:00 10/24/17 22:43 Vitamin B1 - PO 100 mg HS ROBIN Administration REVIEW OF SYSTEMS: CONSTITUTIONAL: Absent: fever, chills, diaphoresis, generalized weakness, malaise, loss of appetite, weight change HEENT: Absent: rhinorrhea, nasal congestion, throat pain, throat swelling, difficulty swallowing, mouth swelling, ear pain, eye pain, visual changes CARDIOVASCULAR: Absent: chest pain, syncope, palpitations, irregular heart rate, lightheadedness , peripheral edema RESPIRATORY: Absent: cough, dyspnea with exertion, orthopnea, wheezing, stridor, hemoptysis Presetn: SOB GASTROINTESTINAL: Absent: diarrhea, constipation, melena, hematochezia Present: abdominal pain, n/v GENITOURINARY: Absent: dysuria, frequency, urgency, hesitancy, hematuria, flank pain, genital pain MUSCULOSKELETAL: Absent: myalgia, arthralgia, joint swelling, back pain, neck pain SKIN: Absent: rash, itching, pallor HEMATOLOGIC/IMMUNOLOGIC: Absent: easy bleeding, easy bruising, lymphadenopathy, frequent infections ENDOCRINE: Absent: unexplained weight gain, unexplained weight loss, heat intolerance, cold intolerance NEUROLOGIC: Absent: headache, focal weakness or paresthesias, dizziness, unsteady gait, seizure, mental status changes, bladder or bowel incontinence PSYCHIATRIC: Absent: anxiety, depression, suicidal or homicidal ideation, hallucinations. PHYSICAL EXAMINATION Vital Signs - 24 hr 10/24/17 10/24/17 10/24/17 07:42 09:01 10:19 Temperature 97.6 F Pulse Rate 151 H Pulse Rate [ 113 H Apical] Respiratory 22 18 Rate Blood Pressure 121/86 Blood Pressure 131/88 [Right Arm] O2 Sat by Pulse 100 98 98 Oximetry (%) General: young disheveled male, lying in bed, in NAD Cards: RRR, no murmurs Resp: CTAB, no rhonchi, no rales Abdomen: soft, mildly tender diffusely, ND Extremities: no LE edema Neuro: AAOx3, CN 2-12 intact, strength and sensory function intact in all 4 extremities Skin: multiple scars on left forearm Laboratory Results - last 24 hr 10/24/17 10/24/17 10/24/17 08:10 08:10 08:10 WBC 12.4 H D RBC 4.78 D Hgb 13.8 D Hct 45.4 D MCV 95.0 D MCH 29.0 MCHC 30.5 L RDW 16.6 H Plt Count 370 D MPV 8.4 Neutrophils % 85.3 H D Lymphocytes % 10.7 D Monocytes % 3.7 L Eosinophils % 0.0 D Basophils % 0.3 VBG pH POC VBG pCO2 POC VBG pO2 Mixed VBG HCO3 Sodium 129 L Potassium 5.1 Chloride 81 L D Carbon Dioxide 16 L D Anion Gap 32 H BUN 51 H D Creatinine 2.5 H D Creat Clearance w eGFR 32.17 Random Glucose Cancelled 854 H* D Lactic Acid Calcium 9.3 Magnesium Total Bilirubin 1.1 H D AST 30 D ALT 45 D Alkaline Phosphatase 213 H D Creatine Kinase Troponin I Total Protein 10.1 H D Albumin 3.9 D Lipase Urine Color Urine Appearance Urine pH Ur Specific [place] Urine Protein Urine Glucose (UA) Urine Ketones Urine Blood Urine Nitrite Urine Bilirubin Urine Urobilinogen Ur Leukocyte Esterase Urine WBC (Auto) Urine RBC (Auto) Opiates Screen Methadone Screen Barbiturate Screen Phencyclidine Screen Ur Amphetamines Screen MDMA (Ecstasy) Screen Benzodiazepines Screen Cocaine Screen U Marijuana (THC) Screen Acetone, Qual Cancelled Positive moderate 2+ 10/24/17 10/24/17 10/24/17 08:11 08:16 10:10 WBC RBC Hgb Hct MCV MCH MCHC RDW Plt Count MPV Neutrophils % Lymphocytes % Monocytes % Eosinophils % Basophils % VBG pH 7.24 L* POC VBG pCO2 35.9 L POC VBG pO2 29.9 Mixed VBG HCO3 14.7 L* Sodium Potassium Chloride Carbon Dioxide Anion Gap BUN Creatinine Creat Clearance w eGFR Random Glucose Lactic Acid 3.0 H* Calcium Magnesium Total Bilirubin AST ALT Alkaline Phosphatase Creatine Kinase Troponin I Total Protein Albumin Lipase Urine Color Straw Urine Appearance Clear Urine pH 5.0 Ur Specific [place] 1.023 Urine Protein Negative Urine Glucose (UA) 3+ H Urine Ketones 2+ H Urine Blood 1+ H Urine Nitrite Negative Urine Bilirubin Negative Urine Urobilinogen Negative Ur Leukocyte Esterase Negative Urine WBC (Auto) 1 Urine RBC (Auto) <1 Opiates Screen Methadone Screen Barbiturate Screen Phencyclidine Screen Ur Amphetamines Screen MDMA (Ecstasy) Screen Benzodiazepines Screen Cocaine Screen U Marijuana (THC) Screen Acetone, Qual 10/24/17 10/24/17 10/24/17 10:10 10:19 10:19 WBC 9.1 RBC 4.25 Hgb 12.6 Hct 39.9 MCV 93.9 MCH 29.5 MCHC 31.5 L RDW 17.1 H Plt Count 261 D MPV 8.4 Neutrophils % 85.3 H Lymphocytes % 10.8 Monocytes % 3.5 L Eosinophils % 0.0 Basophils % 0.4 VBG pH POC VBG pCO2 POC VBG pO2 Mixed VBG HCO3 Sodium 134 L Potassium 5.1 Chloride 92 L D Carbon Dioxide 13 L Anion Gap 29 H BUN 51 H Creatinine 2.1 H Creat Clearance w eGFR 39.33 Random Glucose 733 H* Lactic Acid Calcium 7.7 L Magnesium 2.8 H D Total Bilirubin 0.6 D AST 24 ALT 33 D Alkaline Phosphatase 156 H D Creatine Kinase 32 L Troponin I 0.02 D Total Protein 7.8 D Albumin 2.9 L D Lipase 92 Urine Color Urine Appearance Urine pH Ur Specific [place] Urine Protein Urine Glucose (UA) Urine Ketones Urine Blood Urine Nitrite Urine Bilirubin Urine Urobilinogen Ur Leukocyte Esterase Urine WBC (Auto) Urine RBC (Auto) Opiates Screen Positive Methadone Screen Negative Barbiturate Screen Negative Phencyclidine Screen Negative Ur Amphetamines Screen Negative MDMA (Ecstasy) Screen Negative Benzodiazepines Screen Negative Cocaine Screen Negative U Marijuana (THC) Screen Negative Acetone, Qual Active Medications Generic Name Dose Route Start Last Admin Trade Name Freq PRN Reason Stop Dose Admin Insulin Human Regular 100 100 mls @ 7.34 mls/hr 10/24/17 09:15 10/24/17 10:00 units/ Sodium Chloride IVPB 0.1 units/kg/hr TITR ROBIN 7.34 mls/hr Protocol Administration 0.1 UNITS/KG/HR ASSESSMENT/PLAN: 21M w/ hx of DM, DKA, IV drug use, PNA, MRSA, and abscess requiring I&D who presented with high sugars, admitted for DKA in setting of not taking insulin. Endocrine #DKA- 2/2 not taking insulin -1/2NS w/ 20meq KCl -insulin gtt -BMPs q3h -f/u cultures to rule out infectious etiologies for DKA Psych #substance abuse -Dr. Salcedo consulted, appreciate recs -continue suboxone per Dr. Salcedo. Will determine if will detox -monitor for signs of withdrawal FEN/ppx -1/2NS w/ 20meq KCl -serial BMPs to fix electrolytes -NPO -early ambulation -no GI ppx indicated Case discussed with attending, Dr. Belle. -Ming Barajas MD PGY1 ICU Team Visit type - Emergency Visit Emergency Visit: Yes ED Registration Date: 10/24/17 Care time: The patient presented to the Emergency Department on the above date and was hospitalized for further evaluation of their emergent condition. - New Patient This patient is new to me today: Yes Date on this admission: 10/25/17 - Critical Care Critical Care patient: Yes Total Critical Care Time (in minutes): 36 Critical Care Statement: The care of this patient involved high complexity decision making to prevent further life threatening deterioration of the patient 's condition and/or to evaluate & treat vital organ system(s) failure or risk of failure.
[2017-10-24] MEDS ORDERED: SODIUM CHLORIDE 0.45%/POT 20 MEQ/1,000 ML INFUS.BAG IV SCH (13:15)
--- NOTE | 2017-10-24 13:15 | PN ---
Teaching Attending Note Name of Resident: Ming Barajas ATTENDING PHYSICIAN STATEMENT I saw and evaluated the patient. I reviewed the resident's note and discussed the case with the resident. I agree with the resident's findings and plan as documented. SUBJECTIVE: Pt seen and examined in the ER. Briefly, 21 yo male with h/o IDDM, Hep C, IVDA, recent prolonged hospitalization for persistent MRSA bacteremia who was admitted with nausea, vomiting and abdominal pain. States he ran out of his Lantus and missed 2 doses. Usually takes 30 units qPM and sliding scale coverage. Reports generalized weakness, chills. Found to have an anion gap of 32 on initial blood work, started on IVF and insulin gtt. Awaiting ICU bed. On suboxone 8mg daily, still using intranasal heroin but no further IVDU. OBJECTIVE: Last Vital Signs Temp Pulse Resp BP Pulse Ox 97.6 F 113 H 18 131/88 98 10/24/17 07:42 10/24/17 10:19 10/24/17 10:19 10/24/17 10:19 10/24/17 10:19 Intake & Output 10/21/17 10/22/17 10/23/17 10/24/17 23:59 23:59 23:59 23:59 Intake Total 4000 Output Total 900 Balance 3100 Weight 73.482 kg Gen: disheveled Heart: tachycardic, regular Lung: decreased breath sounds at the bases Abd: soft, nontender Ext: no edema CBC, BMP 10/24/17 10:19 10/24/17 10:19 Active Medications Insulin Human Regular 100 (units/ Sodium Chloride) 100 mls @ 7.34 mls/hr IVPB TITR ROBIN; 0.1 UNITS/KG/HR PRN Reason: Protocol Last Admin: 10/24/17 10:00 Dose: 0.1 units/kg/hr, 7.34 mls/hr Potassium Chloride/Sodium Chloride (1/2ns+20meq Kcl) 20 meq in 1,000 mls @ 250 mls/hr IV ASDIR ROBIN ASSESSMENT AND PLAN: Diabetic Ketoacidosis Acute Kidney Injury Metabolic/Lactic Acidosis Opiate Dependence - IVF resuscitation - insulin gtt - monitor urine output, creatinine - monitor BGM q1h, BMP q4h while on insulin gtt - if BGM <250 while on insulin gtt, add D5 to IVF - if K <4.5 while on insulin gtt, add KCl to IVF - NPO - antiemetics - continue suboxone - ICU monitoring critical care time spent in reviewing chart, evaluating patient and formulating plan 35 min
--- NOTE | 2017-10-24 13:56 | CONSULT ---
Consult Detox [facility] Reason for Current Admission/Consult: substance use Referred by:: marianela wynn - History History of Present Illness: 21 yo m readmitted with diabetic ketoacidosis to ICU after using heroin, was started on suboxone 8mg 2 prior admissions with elimination of cravings and desire to use but patient never followed up for outpatient care at [facility] and relpased to heroin use, would like to restart suboxone during hosptialization - Alcohol/Substance Use Hx Alcohol Use: No - Past Medical History Pulmonary: Yes: Pneumonia Gastrointestinal: Yes: Other (Hep C) Infectious Disease: Yes: Other (HEP C) Psych: Yes: Addictions Endocrine: Yes: Diabetes Mellitus Additional Medical History: polysubstance use Assessment Plan - Diagnosis (1) Acute kidney injury Status: Acute (2) Diabetic ketoacidosis Status: Acute (3) Nicotine dependence Status: Acute Qualifiers: Nicotine product type: cigarettes Substance use status: uncomplicated Qualified Code(s): F17.210 - Nicotine dependence, cigarettes, uncomplicated (4) Opioid dependence on agonist therapy Status: Acute (5) Opioid dependence with withdrawal Status: Acute - Plan Plan: chart, labs, imaging reviewed, discussed case with registered medical transcriptionist. REcommend: 1. restart MAT with suboxone as ordered. 2. fluids, vitamins as ordered 3. DKA as per priamry team. 4. Schedule outpatient follow up at [facility] when discharged. 5, prescription sent to pharmacy
[2017-10-24] MEDS ORDERED: BUPRENORPHINE/NALOXONE 2 MG/0.5 MG FILM PACKET SL PRN (14:20)
[2017-10-24] MEDS ORDERED: cloNIDine HCL 0.1 MG TABLET PO PRN (14:23)
[2017-10-24] MEDS ORDERED: BUPRENORPHINE/NALOXONE 2 MG/0.5 MG FILM PACKET SL SCH (14:30)
--- NOTE | 2017-10-24 15:04 | EKG ---
Test Reason : Blood Pressure : / mmHG Vent. Rate : 123 BPM Atrial Rate : 123 BPM P-R Int : 124 ms QRS Dur : 092 ms QT Int : 324 ms P-R-T Axes : 080 077 -02 degrees QTc Int : 463 ms SINUS TACHYCARDIA POSSIBLE LEFT ATRIAL ENLARGEMENT NONSPECIFIC ST ABNORMALITY ABNORMAL QRS-T ANGLE, CONSIDER PRIMARY T WAVE ABNORMALITY ABNORMAL ECG WHEN COMPARED WITH ECG OF 20-SEP-2017 21:13, NONSPECIFIC T WAVE ABNORMALITY NOW EVIDENT IN INFERIOR LEADS NONSPECIFIC T WAVE ABNORMALITY NO LONGER EVIDENT IN ANTEROLATERAL LEADS Confirmed by LUIS SANDERSON, ALFREDO ([id number]) on 10/24/2017 3:03:26 PM Referred By: Confirmed By:ALFREDO SMITH MD
[2017-10-24] MEDS ORDERED: PT OWN MED DRAWER 7, Y5N ONE (15:18)
[2017-10-24] MEDS ORDERED: diazePAM 5 MG TABLET PO PRN (15:55)
[2017-10-24] MEDS: BUPRENORPHINE/NALOXONE 8 MG/2 MG FILM PACKET SL SCH (16:05)
[2017-10-24 16:49] LABS: ANION GAP 13 (8-16); CALCIUM 7.8 mg/dL (8.5-10.1); CHLORIDE 106 mmol/L (98-107); CO2 26 mmol/L (21-32); GLUCOSE,RANDOM 146 mg/dL (74-106); POTASSIUM 4.1 mmol/L (3.5-5.1); SODIUM 145 mmol/L (136-145)
[2017-10-24 17:05] LABS: BLOOD UREA NITROGEN 36 mg/dL (7-18)
--- NOTE | 2017-10-24 17:07 | PN ---
Progress Note (short form) - Note Progress Note: decrease the insulin rate to 0.03 ml /kg /hour and start D5 1/2 NS with 20 KCl 2 rate of 200 cc/hr spoke with Dr michael masters for suboxone and the dose adjusted by dr Manuel to 8 mg daily
[2017-10-24] MEDS ORDERED: D5-1/2NS+20 MEQ KCL - 20 MEQ/1,000 ML INFUS.BAG IV SCH ×2 (17:15→18:45)
--- NOTE | 2017-10-24 18:55 | HP ---
Admitting History and Physical - Primary Care Physician PCP: David Davis - Admission History of Present Illness: 21 yo m readmitted with diabetic ketoacidosis to ICU after using heroin, was started on suboxone 8mg 2 prior admissions with elimination of cravings and desire to use but patient never followed up for outpatient care at [facility] and relpased to heroin use, would like to restart suboxone during hosptialization - Past Medical History Pulmonary: Yes: Pneumonia Gastrointestinal: Yes: Other (Hep C) Infectious Disease: Yes: Other (HEP C) Psych: Yes: Addictions Endocrine: Yes: Diabetes Mellitus - Smoking History Smoking history: Current every day smoker Have you smoked in the past 12 months: Yes Aproximately how many cigarettes per day: 20 - Alcohol/Substance Use Hx Alcohol Use: No History of Substance Use: reports: Cocaine, Heroin, Marijuana - Social History ADL: Independent Home Medications - Allergies Allergies/Adverse Reactions: Allergies Allergy/AdvReac Type Severity Reaction Status Date / Time fish derived Allergy Verified 10/24/17 07:41 fish Allergy Uncoded 10/24/17 07:41 - Home Medications Home Medications: Ambulatory Orders Insulin Aspart [Novolog] 100 unit SQ ASDIR 07/01/15 Zolpidem Tartrate [Ambien] 10 mg PO HS 09/20/17 Insulin Glargine,Hum.rec.anlog [Lantus Solostar PEN -] 8 units SQ DAILY #1 pen 09/26/17 Insulin Glargine,Hum.rec.anlog [Lantus Solostar PEN -] 30 units SQ HS #1 ea Linezolid [Zyvox (Restricted To Id) -] 600 mg PO BID #22 tablet 09/26/17 Lisinopril [Prinivil] 10 mg PO DAILY #30 tablet 09/26/17 Buprenorphine/Naloxone [Suboxone 8Mg/2Mg Sl Film -] 1 each SL DAILY #30 film MDD 1 10/24/17 Family Disease History - Family Disease History Family Disease History: Other: Father (healthy), Mother (healthy), Brother (IDDM ) Physical Examination Vital Signs: Vital Signs Temperature 98 F 10/24/17 18:00 Pulse Rate 104 H 10/24/17 18:00 Respiratory Rate 12 10/24/17 18:00 Blood Pressure 121/88 10/24/17 18:00 O2 Sat by Pulse Oximetry (%) 98 10/24/17 15:00 Constitutional: Yes: No Distress HENT: Yes: Atraumatic Neck: Yes: Supple Cardiovascular: Yes: Regular Rate and Rhythm Respiratory: Yes: CTA Bilaterally Gastrointestinal: Yes: Normal Bowel Sounds Extremities: Yes: WNL Neurological: Yes: Alert, Oriented Labs: CBC, BMP 10/24/17 10:19 10/24/17 15:45 Problem List - Problems (1) Acute kidney injury Assessment/Plan: iv hydration fu labs Code(s): N17.9 - ACUTE KIDNEY FAILURE, UNSPECIFIED (2) Diabetic ketoacidosis Assessment/Plan: ivf, insulin drip bgms endocrine consult Code(s): E13.10 - OTH DIABETES MELLITUS WITH KETOACIDOSIS WITHOUT COMA (3) Heroin abuse Code(s): F11.10 - OPIOID ABUSE, UNCOMPLICATED Assessment/Plan Laboratory Tests 10/24/17 10/24/17 10/24/17 08:10 08:10 08:10 WBC 12.4 H D RBC 4.78 D Hgb 13.8 D Hct 45.4 D MCV 95.0 D MCH 29.0 MCHC 30.5 L RDW 16.6 H Plt Count 370 D MPV 8.4 Neutrophils % 85.3 H D Lymphocytes % 10.7 D Monocytes % 3.7 L Eosinophils % 0.0 D Basophils % 0.3 VBG pH POC VBG pCO2 POC VBG pO2 Mixed VBG HCO3 Sodium 129 L Potassium 5.1 Chloride 81 L D Carbon Dioxide 16 L D Anion Gap 32 H BUN 51 H D Creatinine 2.5 H D Creat Clearance w eGFR 32.17 POC Glucometer Random Glucose Cancelled 854 H* D Lactic Acid Calcium 9.3 Magnesium Total Bilirubin 1.1 H D AST 30 D ALT 45 D Alkaline Phosphatase 213 H D Creatine Kinase Troponin I Total Protein 10.1 H D Albumin 3.9 D Lipase Urine Color Urine Appearance Urine pH Ur Specific [place] Urine Protein Urine Glucose (UA) Urine Ketones Urine Blood Urine Nitrite Urine Bilirubin Urine Urobilinogen Ur Leukocyte Esterase Urine WBC (Auto) Urine RBC (Auto) Opiates Screen Methadone Screen Barbiturate Screen Phencyclidine Screen Ur Amphetamines Screen MDMA (Ecstasy) Screen Benzodiazepines Screen Cocaine Screen U Marijuana (THC) Screen Acetone, Qual Cancelled Positive moderate 2+ 10/24/17 10/24/1710/24/18 08:11 08:16 08:54 WBC RBC Hgb Hct MCV MCH MCHC RDW Plt Count MPV Neutrophils % Lymphocytes % Monocytes % Eosinophils % Basophils % VBG pH 7.24 L* POC VBG pCO2 35.9 L POC VBG pO2 29.9 Mixed VBG HCO3 14.7 L* Sodium Potassium Chloride Carbon Dioxide Anion Gap BUN Creatinine Creat Clearance w eGFR POC Glucometer [phone] Random Glucose Lactic Acid 3.0 H* Calcium Magnesium Total Bilirubin AST ALT Alkaline Phosphatase Creatine Kinase Troponin I Total Protein Albumin Lipase Urine Color Urine Appearance Urine pH Ur Specific [place] Urine Protein Urine Glucose (UA) Urine Ketones Urine Blood Urine Nitrite Urine Bilirubin Urine Urobilinogen Ur Leukocyte Esterase Urine WBC (Auto) Urine RBC (Auto) Opiates Screen Methadone Screen Barbiturate Screen Phencyclidine Screen Ur Amphetamines Screen MDMA (Ecstasy) Screen Benzodiazepines Screen Cocaine Screen U Marijuana (THC) Screen Acetone, Qual 10/24/17 10/24/17 10/24/17 09:27 09:30 10:10 WBC RBC Hgb Hct MCV MCH MCHC RDW Plt Count MPV Neutrophils % Lymphocytes % Monocytes % Eosinophils % Basophils % VBG pH POC VBG pCO2 POC VBG pO2 Mixed VBG HCO3 Sodium Potassium Chloride Carbon Dioxide Anion Gap BUN Creatinine Creat Clearance w eGFR POC Glucometer > 400 > 400 Random Glucose Lactic Acid Calcium Magnesium Total Bilirubin AST ALT Alkaline Phosphatase Creatine Kinase Troponin I Total Protein Albumin Lipase Urine Color Straw Urine Appearance Clear Urine pH 5.0 Ur Specific [place] 1.023 Urine Protein Negative Urine Glucose (UA) 3+ H Urine Ketones 2+ H Urine Blood 1+ H Urine Nitrite Negative Urine Bilirubin Negative Urine Urobilinogen Negative Ur Leukocyte Esterase Negative Urine WBC (Auto) 1 Urine RBC (Auto) <1 Opiates Screen Methadone Screen Barbiturate Screen Phencyclidine Screen Ur Amphetamines Screen MDMA (Ecstasy) Screen Benzodiazepines Screen Cocaine Screen U Marijuana (THC) Screen Acetone, Qual 10/24/17 10/24/17 10/24/17 10:10 10:19 10:19 WBC RBC Hgb Hct MCV MCH MCHC RDW Plt Count MPV Neutrophils % Lymphocytes % Monocytes % Eosinophils % Basophils % VBG pH POC VBG pCO2 POC VBG pO2 Mixed VBG HCO3 Sodium 134 L Potassium 5.1 Chloride 92 L D Carbon Dioxide 13 L Anion Gap 29 H BUN 51 H Creatinine 2.1 H Creat Clearance w eGFR 39.33 POC Glucometer Random Glucose 733 H* Lactic Acid 2.3 H* Calcium 7.7 L Magnesium 2.8 H D Total Bilirubin 0.6 D AST 24 ALT 33 D Alkaline Phosphatase 156 H D Creatine Kinase 32 L Troponin I 0.02 D Total Protein 7.8 D Albumin 2.9 L D Lipase 92 Urine Color Urine Appearance Urine pH Ur Specific [place] Urine Protein Urine Glucose (UA) Urine Ketones Urine Blood Urine Nitrite Urine Bilirubin Urine Urobilinogen Ur Leukocyte Esterase Urine WBC (Auto) Urine RBC (Auto) Opiates Screen Positive Methadone Screen Negative Barbiturate Screen Negative Phencyclidine Screen Negative Ur Amphetamines Screen Negative MDMA (Ecstasy) Screen Negative Benzodiazepines Screen Negative Cocaine Screen Negative U Marijuana (THC) Screen Negative Acetone, Qual 10/24/17 10/24/17 10/24/17 10:19 11:18 11:23 WBC 9.1 RBC 4.25 Hgb 12.6 Hct 39.9 MCV 93.9 MCH 29.5 MCHC 31.5 L RDW 17.1 H Plt Count 261 D MPV 8.4 Neutrophils % 85.3 H Lymphocytes % 10.8 Monocytes % 3.5 L Eosinophils % 0.0 Basophils % 0.4 VBG pH POC VBG pCO2 POC VBG pO2 Mixed VBG HCO3 Sodium Potassium Chloride Carbon Dioxide Anion Gap BUN Creatinine Creat Clearance w eGFR POC Glucometer [phone] > 400 Random Glucose Lactic Acid Calcium Magnesium Total Bilirubin AST ALT Alkaline Phosphatase Creatine Kinase Troponin I Total Protein Albumin Lipase Urine Color Urine Appearance Urine pH Ur Specific [place] Urine Protein Urine Glucose (UA) Urine Ketones Urine Blood Urine Nitrite Urine Bilirubin Urine Urobilinogen Ur Leukocyte Esterase Urine WBC (Auto) Urine RBC (Auto) Opiates Screen Methadone Screen Barbiturate Screen Phencyclidine Screen Ur Amphetamines Screen MDMA (Ecstasy) Screen Benzodiazepines Screen Cocaine Screen U Marijuana (THC) Screen Acetone, Qual 10/24/17 10/24/17 15:45 15:45 WBC RBC Hgb Hct MCV MCH MCHC RDW Plt Count MPV Neutrophils % Lymphocytes % Monocytes % Eosinophils % Basophils % VBG pH POC VBG pCO2 POC VBG pO2 Mixed VBG HCO3 Sodium 145 Potassium 4.1 Chloride 106 D Carbon Dioxide 26 D Anion Gap 13 BUN 36 H D Creatinine 2.0 H Creat Clearance w eGFR POC Glucometer Random Glucose 146 H D Lactic Acid 3.1 H* Calcium 7.8 L Magnesium Total Bilirubin AST ALT Alkaline Phosphatase Creatine Kinase Troponin I Total Protein Albumin Lipase Urine Color Urine Appearance Urine pH Ur Specific [place] Urine Protein Urine Glucose (UA) Urine Ketones Urine Blood Urine Nitrite Urine Bilirubin Urine Urobilinogen Ur Leukocyte Esterase Urine WBC (Auto) Urine RBC (Auto) Opiates Screen Methadone Screen Barbiturate Screen Phencyclidine Screen Ur Amphetamines Screen MDMA (Ecstasy) Screen Benzodiazepines Screen Cocaine Screen U Marijuana (THC) Screen Acetone, Qual Active Medications Generic Name Dose Route Start Last Admin Trade Name Freq PRN Reason Stop Dose Admin Buprenorphine/Naloxone 1 each 10/24/17 16:00 10/24/17 16:05 Suboxone 8mg/2mg Sl Film - SL 1 each DAILY [facility] Administration Clonidine 0.1 mg 10/24/17 14:23 Catapres - PO Q12H PRN WITHDRAWAL(CONT SUBST) Diazepam 10 mg 10/24/17 15:55 Valium - PO HS PRN INSOMNIA Insulin Human Regular 100 100 mls @ 1.46 mls/hr 10/24/17 18:44 units/ Sodium Chloride IVPB TITR ROBIN Protocol 0.02 UNITS/KG/HR Potassium Chloride/Dextrose/Sod Cl 20 meq in 1,000 mls @ 250 mls/hr 10/24/17 18:45 D5-1/2ns+20 Meq Kcl - IV ASDIR ROBIN Multivit/Folic Acid/Iron 1 tab 10/25/17 10:00 Vitamins (Sjr) - PO DAILY [facility] Thiamine HCl 100 mg 10/24/17 22:00 Vitamin B1 - PO HS [facility] cc time 60 min
[2017-10-24] MEDS ORDERED: INSULIN (LEVEMIR) 100 UNITS/ML UNITS SQ ONE (19:34)
[2017-10-24 20:45] LABS: ANION GAP 13 (8-16); BLOOD UREA NITROGEN 31 mg/dL (7-18); CALCIUM 7.1 mg/dL (8.5-10.1); CHLORIDE 101 mmol/L (98-107); CO2 24 mmol/L (21-32); CREATININE 1.6 mg/dL (0.7-1.3); GLUCOSE,RANDOM 165 mg/dL (74-106); POTASSIUM 4.4 mmol/L (3.5-5.1); SODIUM 138 mmol/L (136-145)
[2017-10-24] MEDS ORDERED: CEFTRIAXONE 1 GM in DEXTROSE 5%-WATER - 50 ML IVPB ONE (21:27)
--- NOTE | 2017-10-24 21:35 | PN ---
Progress Note (short form) - Note Progress Note: Vital Signs Period Temp Pulse Resp BP Sys/Nolan Pulse Ox Last 24 Hr 97.6 F-98.6 F 104-151 12-22 110-131/67-88 98-100 CBC, BMP 10/24/17 10:19 10/24/17 19:50 @ 9.30 D5 1/2 NS 250 Cc/hr was stoped, insulin drip 0.02/kg was stopped start pt on NS @ 100 CC/Hr 1 g of ceftriaxone was given Dr. ledesma ID was consulted per Dr Davis request diabetic diet in Am repeat BMP in AM BGM ISS
[2017-10-24] MEDS ORDERED: THIAMINE HCL 100 MG TABLET (FP) PO SCH (22:00)
[2017-10-24] MEDS ORDERED: diazePAM 5 MG TABLET PO SCH (22:00)
[2017-10-24] MEDS ORDERED: cefTRIAXone SODIUM 1 GM VIAL ONE (22:35)
[2017-10-24] MEDS ORDERED: DEXTROSE 5%-WATER - 50 ML IVPB ONE (22:36)
[2017-10-24] MEDS: SODIUM CHLORIDE 1,000 ML IV SCH (22:43)
[2017-10-24] MEDS: INSULIN SLIDING SCALE (NOVOLOG) 1 VIAL SQ SCH (23:57)
[2017-10-25 06:48] LABS: BASO % 0.3 % (0-2.0); EOS % 0.4 % (0-4.5); HEMATOCRIT 28.3 % (35.4-49); HEMOGLOBIN 9.7 GM/dL (11.7-16.9); LYMPH % 26.4 % (8-40); MCHC 34.1 g/dl (32.0-35.9); MEAN PLT VOLUME 7.2 fl (7.5-11.1); MONO % 6.9 % (3.8-10.2); PLATELET COUNT 248 K/MM3 (134-434); RBC 3.22 M/mm3 (4.00-5.60); RDW 17.2 % (11.9-15.9); WHITE BLOOD COUNT 11.4 K/mm3 (4.0-10.0)
[2017-10-25 07:17] LABS: ALBUMIN 2.4 g/dl (3.4-5.0); ANION GAP 7 (8-16); BLOOD UREA NITROGEN 20 mg/dL (7-18); CALCIUM 7.1 mg/dL (8.5-10.1); CHLORIDE 101 mmol/L (98-107); CO2 29 mmol/L (21-32); MAGNESIUM 2.2 mg/dL (1.8-2.4); POTASSIUM 3.6 mmol/L (3.5-5.1); SODIUM 137 mmol/L (136-145)
[2017-10-25] MEDS: INSULIN SLIDING SCALE (NOVOLOG) 1 VIAL SQ SCH ×4 (07:19→21:41)
[2017-10-25 07:24] LABS: ALK PHOS 111 U/L (45-117); BILIRUBIN,TOTAL 0.5 mg/dL (0.2-1.0); CREATININE 1.2 mg/dL (0.7-1.3); PHOSPHOROUS 1.9 mg/dL (2.5-4.9); SGOT/AST 30 U/L (15-37); SGPT/ALT 24 U/L (12-78); TOT PROT 6.1 g/dl (6.4-8.2)
[2017-10-25 07:29] LABS: GLUCOSE,RANDOM 41 mg/dL (74-106)
[2017-10-25] MEDS ORDERED: DEXTROSE 50%-WATER - 25 GM/50 ML VIAL IVPUSH ONE (07:34)
[2017-10-25] MEDS: SODIUM CHLORIDE 1,000 ML IV SCH ×3 (07:49→19:58)
--- NOTE | 2017-10-25 08:05 | PN ---
Physical Exam: SUBJECTIVE: Patient awake, c/o abdominal pain (presents for 2-3 weeks), tolerating PO intake. Last BM overnight, was normal. OBJECTIVE: Vital Signs Period Temp Pulse Resp BP Sys/Nolan Pulse Ox Last 24 Hr 98 F-98.8 F 84-113 12-22 97-131/65-88 98-98 GENERAL: awake, alert Abdomen: (+) bowel sounds, LLQ TTP CV: S1/S2, Grade I systolic murmur Respiratory: CLTA B/L, no wheezes, no crackles Extremities: LUE track crook, no edema, 2+ DP pulses Laboratory Results - last 24 hr 10/24/17 10/24/17 10/24/17 08:10 08:10 08:10 WBC 12.4 H D RBC 4.78 D Hgb 13.8 D Hct 45.4 D MCV 95.0 D MCH 29.0 MCHC 30.5 L RDW 16.6 H Plt Count 370 D MPV 8.4 Neutrophils % 85.3 H D Lymphocytes % 10.7 D Monocytes % 3.7 L Eosinophils % 0.0 D Basophils % 0.3 VBG pH POC VBG pCO2 POC VBG pO2 Mixed VBG HCO3 Sodium 129 L Potassium 5.1 Chloride 81 L D Carbon Dioxide 16 L D Anion Gap 32 H BUN 51 H D Creatinine 2.5 H D Creat Clearance w eGFR 32.17 POC Glucometer Random Glucose Cancelled 854 H* D Lactic Acid Calcium 9.3 Phosphorus Magnesium Total Bilirubin 1.1 H D AST 30 D ALT 45 D Alkaline Phosphatase 213 H D Creatine Kinase Troponin I Total Protein 10.1 H D Albumin 3.9 D Lipase Urine Color Urine Appearance Urine pH Ur Specific [place] Urine Protein Urine Glucose (UA) Urine Ketones Urine Blood Urine Nitrite Urine Bilirubin Urine Urobilinogen Ur Leukocyte Esterase Urine WBC (Auto) Urine RBC (Auto) Opiates Screen Methadone Screen Barbiturate Screen Phencyclidine Screen Ur Amphetamines Screen MDMA (Ecstasy) Screen Benzodiazepines Screen Cocaine Screen U Marijuana (THC) Screen Acetone, Qual Cancelled Positive moderate 2+ 10/24/17 10/24/17 10/24/17 08:11 08:16 08:54 WBC RBC Hgb Hct MCV MCH MCHC RDW Plt Count MPV Neutrophils % Lymphocytes % Monocytes % Eosinophils % Basophils % VBG pH 7.24 L* POC VBG pCO2 35.9 L POC VBG pO2 29.9 Mixed VBG HCO3 14.7 L* Sodium Potassium Chloride Carbon Dioxide Anion Gap BUN Creatinine Creat Clearance w eGFR POC Glucometer [phone] Random Glucose Lactic Acid 3.0 H* Calcium Phosphorus Magnesium Total Bilirubin AST ALT Alkaline Phosphatase Creatine Kinase Troponin I Total Protein Albumin Lipase Urine Color Urine Appearance Urine pH Ur Specific [place] Urine Protein Urine Glucose (UA) Urine Ketones Urine Blood Urine Nitrite Urine Bilirubin Urine Urobilinogen Ur Leukocyte Esterase Urine WBC (Auto) Urine RBC (Auto) Opiates Screen Methadone Screen Barbiturate Screen Phencyclidine Screen Ur Amphetamines Screen MDMA (Ecstasy) Screen Benzodiazepines Screen Cocaine Screen U Marijuana (THC) Screen Acetone, Qual 10/24/17 10/24/17 10/24/17 09:27 09:30 10:10 WBC RBC Hgb Hct MCV MCH MCHC RDW Plt Count MPV Neutrophils % Lymphocytes % Monocytes % Eosinophils % Basophils % VBG pH POC VBG pCO2 POC VBG pO2 Mixed VBG HCO3 Sodium Potassium Chloride Carbon Dioxide Anion Gap BUN Creatinine Creat Clearance w eGFR POC Glucometer > 400 > 400 Random Glucose Lactic Acid Calcium Phosphorus Magnesium Total Bilirubin AST ALT Alkaline Phosphatase Creatine Kinase Troponin I Total Protein Albumin Lipase Urine Color Straw Urine Appearance Clear Urine pH 5.0 Ur Specific [place] 1.023 Urine Protein Negative Urine Glucose (UA) 3+ H Urine Ketones 2+ H Urine Blood 1+ H Urine Nitrite Negative Urine Bilirubin Negative Urine Urobilinogen Negative Ur Leukocyte Esterase Negative Urine WBC (Auto) 1 Urine RBC (Auto) <1 Opiates Screen Methadone Screen Barbiturate Screen Phencyclidine Screen Ur Amphetamines Screen MDMA (Ecstasy) Screen Benzodiazepines Screen Cocaine Screen U Marijuana (THC) Screen Acetone, Qual 10/24/17 10/24/17 10/24/17 10:10 10:19 10:19 WBC RBC Hgb Hct MCV MCH MCHC RDW Plt Count MPV Neutrophils % Lymphocytes % Monocytes % Eosinophils % Basophils % VBG pH POC VBG pCO2 POC VBG pO2 Mixed VBG HCO3 Sodium 134 L Potassium 5.1 Chloride 92 L D Carbon Dioxide 13 L Anion Gap 29 H BUN 51 H Creatinine 2.1 H Creat Clearance w eGFR 39.33 POC Glucometer Random Glucose 733 H* Lactic Acid 2.3 H* Calcium 7.7 L Phosphorus Magnesium 2.8 H D Total Bilirubin 0.6 D AST 24 ALT 33 D Alkaline Phosphatase 156 H D Creatine Kinase 32 L Troponin I 0.02 D Total Protein 7.8 D Albumin 2.9 L D Lipase 92 Urine Color Urine Appearance Urine pH Ur Specific [place] Urine Protein Urine Glucose (UA) Urine Ketones Urine Blood Urine Nitrite Urine Bilirubin Urine Urobilinogen Ur Leukocyte Esterase Urine WBC (Auto) Urine RBC (Auto) Opiates Screen Positive Methadone Screen Negative Barbiturate Screen Negative Phencyclidine Screen Negative Ur Amphetamines Screen Negative MDMA (Ecstasy) Screen Negative Benzodiazepines Screen Negative Cocaine Screen Negative U Marijuana (THC) Screen Negative Acetone, Qual 10/24/17 10/24/17 10/24/17 10:19 11:18 11:23 WBC 9.1 RBC 4.25 Hgb 12.6 Hct 39.9 MCV 93.9 MCH 29.5 MCHC 31.5 L RDW 17.1 H Plt Count 261 D MPV 8.4 Neutrophils % 85.3 H Lymphocytes % 10.8 Monocytes % 3.5 L Eosinophils % 0.0 Basophils % 0.4 VBG pH POC VBG pCO2 POC VBG pO2 Mixed VBG HCO3 Sodium Potassium Chloride Carbon Dioxide Anion Gap BUN Creatinine Creat Clearance w eGFR POC Glucometer [phone] > 400 Random Glucose Lactic Acid Calcium Phosphorus Magnesium Total Bilirubin AST ALT Alkaline Phosphatase Creatine Kinase Troponin I Total Protein Albumin Lipase Urine Color Urine Appearance Urine pH Ur Specific [place] Urine Protein Urine Glucose (UA) Urine Ketones Urine Blood Urine Nitrite Urine Bilirubin Urine Urobilinogen Ur Leukocyte Esterase Urine WBC (Auto) Urine RBC (Auto) Opiates Screen Methadone Screen Barbiturate Screen Phencyclidine Screen Ur Amphetamines Screen MDMA (Ecstasy) Screen Benzodiazepines Screen Cocaine Screen U Marijuana (THC) Screen Acetone, Qual 10/24/17 10/24/17 10/24/17 15:45 15:45 19:50 WBC RBC Hgb Hct MCV MCH MCHC RDW Plt Count MPV Neutrophils % Lymphocytes % Monocytes % Eosinophils % Basophils % VBG pH POC VBG pCO2 POC VBG pO2 Mixed VBG HCO3 Sodium 145 138 Potassium 4.1 4.4 Chloride 106 D 101 Carbon Dioxide 26 D 24 Anion Gap 13 13 BUN 36 H D 31 H Creatinine 2.0 H 1.6 H Creat Clearance w eGFR POC Glucometer Random Glucose 146 H D 165 H Lactic Acid 3.1 H* Calcium 7.8 L 7.1 L Phosphorus Magnesium Total Bilirubin AST ALT Alkaline Phosphatase Creatine Kinase Troponin I Total Protein Albumin Lipase Urine Color Urine Appearance Urine pH Ur Specific [place] Urine Protein Urine Glucose (UA) Urine Ketones Urine Blood Urine Nitrite Urine Bilirubin Urine Urobilinogen Ur Leukocyte Esterase Urine WBC (Auto) Urine RBC (Auto) Opiates Screen Methadone Screen Barbiturate Screen Phencyclidine Screen Ur Amphetamines Screen MDMA (Ecstasy) Screen Benzodiazepines Screen Cocaine Screen U Marijuana (THC) Screen Acetone, Qual 10/24/17 10/25/17 10/25/17 19:50 06:20 06:20 WBC 11.4 H RBC 3.22 L D Hgb 9.7 L D Hct 28.3 L D MCV 88.0 MCH 30.0 MCHC 34.1 RDW 17.2 H Plt Count 248 MPV 7.2 L D Neutrophils % 66.0 D Lymphocytes % 26.4 D Monocytes % 6.9 D Eosinophils % 0.4 D Basophils % 0.3 VBG pH POC VBG pCO2 POC VBG pO2 Mixed VBG HCO3 Sodium 137 Potassium 3.6 Chloride 101 Carbon Dioxide 29 D Anion Gap 7 L BUN 20 H D Creatinine 1.2 D Creat Clearance w eGFR > 60 POC Glucometer Random Glucose 41 L* D Lactic Acid 0.7 Calcium 7.1 L Phosphorus 1.9 L D Magnesium 2.2 D Total Bilirubin 0.5 AST 30 D ALT 24 D Alkaline Phosphatase 111 D Creatine Kinase Troponin I Total Protein 6.1 L D Albumin 2.4 L Lipase Urine Color Urine Appearance Urine pH Ur Specific [place] Urine Protein Urine Glucose (UA) Urine Ketones Urine Blood Urine Nitrite Urine Bilirubin Urine Urobilinogen Ur Leukocyte Esterase Urine WBC (Auto) Urine RBC (Auto) Opiates Screen Methadone Screen Barbiturate Screen Phencyclidine Screen Ur Amphetamines Screen MDMA (Ecstasy) Screen Benzodiazepines Screen Cocaine Screen U Marijuana (THC) Screen Acetone, Qual Active Medications Generic Name Dose Route Start Last Admin Trade Name Freq PRN Reason Stop Dose Admin Buprenorphine/Naloxone 1 each 10/24/17 16:00 10/24/17 16:05 Suboxone 8mg/2mg Sl Film - SL 1 each DAILY [facility] Administration Clonidine 0.1 mg 10/24/17 14:23 Catapres - PO Q12H PRN WITHDRAWAL(CONT SUBST) Dextrose 25 gm 10/25/17 07:34 D50w (Vial) - IVPUSH 10/25/17 07:35 NOW ONE Diazepam 10 mg 10/24/17 15:55 10/24/17 22:43 Valium - PO 10 mg HS PRN Administration INSOMNIA Sodium Chloride 1,000 mls @ 100 mls/hr 10/24/17 21:30 10/25/17 07:49 Normal Saline - IV 100 mls/hr ASDIR ROBIN Administration Insulin Aspart 1 vial 10/24/17 22:00 10/25/17 07:19 Novolog Vial Sliding Scale - SQ Not Given ACHS [facility] Protocol Potassium Phos/Sodium Phos 1 packet 10/25/17 07:44 Phos-Nak Packet - PO 10/25/17 07:45 ONCE ONE Multivit/Folic Acid/Iron 1 tab 10/25/17 10:00 Vitamins (Sjr) - PO DAILY [facility] Thiamine HCl 100 mg 10/24/17 22:00 10/24/17 22:43 Vitamin B1 - PO 100 mg HS ROBIN Administration ASSESSMENT/PLAN: 21 year old male presents with DKA. Anion gap closed, Insulin gtt discontinued. 1. DIABETIC KETOACIDOSIS - 2/2 to medication non-adherence 2/2 to heroin abuse - At presentation BS 733, AG 32 - Stopped D5, Insulin Drip overnight - Repeat BS 41 this a.m. (10/25) - D5 x1 - Will start patient on Levemir (15 mg) - after breakfast to avoid over- correction - Continue BS Q1H - Endocrinology following, appreciate recs 2. CRISTINA - RESOLVING - Cr 1.2, BUN 20 today - likely pre-renal - Continue IV NS 3. LACTIC ACIDOSIS- resolved - 0.7 today (10/25) 4. OPIATE DEPENDENCE - Last admitted use 10/22 - VS stable - no active signs of withdrawal - Continue Suboxone 8 mg H/o MRSA BACTEREMIA - h/o IVDU - Grade I systolic murmur - ID consult pending FEN - Monitor electrolytes - Diabetic Diet PROPHYLAXIS Heparin SQ GI prophylaxis not clinically indicated DISPOSITION: Patient stable for transfer to inpatient medicine floor Visit type - Emergency Visit Emergency Visit: No - New Patient This patient is new to me today: Yes Date on this admission: 10/25/17 - Critical Care Critical Care patient: No
[2017-10-25] MEDS ORDERED: NAPH,MB-DB/K PH,MBDB POWDER PACKET PO ONE (08:45)
[2017-10-25] MEDS ORDERED: PT OWN MED DRAWER 7, Y5N ONE (09:02)
[2017-10-25] MEDS: BUPRENORPHINE/NALOXONE 8 MG/2 MG FILM PACKET SL SCH (09:04)
[2017-10-25] MEDS ORDERED: BUPRENORPHINE/NALOXONE 8 MG/2 MG FILM PACKET SL SCH (10:00)
[2017-10-25] MEDS ORDERED: PRENATAL VITAMINS W/ FOLIC ACID TABLET (FP) PO SCH (10:00)
[2017-10-25] MEDS ORDERED: INSULIN (LEVEMIR) 100 UNITS/ML UNITS SQ SCH (10:00)
--- NOTE | 2017-10-25 12:01 | PN ---
Teaching Attending Note Name of Resident: Penny Ventura ATTENDING PHYSICIAN STATEMENT I saw and evaluated the patient. I reviewed the resident's note and discussed the case with the resident. I agree with the resident's findings and plan as documented. SUBJECTIVE: Pt seen and examined in the ICU. Anion gap closed, insulin gtt stopped. Still some nausea but improved. Tolerating PO. OBJECTIVE: Last Vital Signs Temp Pulse Resp BP Pulse Ox 97.8 F 73 17 112/79 99 10/25/17 10:00 10/25/17 10:00 10/25/17 10:00 10/25/17 10:00 10/25/17 08:00 Intake & Output 10/22/17 10/23/17 10/24/17 10/25/17 23:59 23:59 23:59 23:59 Intake Total 7440 3404 Output Total 1800 1000 Balance 5640 2404 Weight 73.482 kg 61.915 kg Gen: NAD at rest Heart: RRR Lung: decreased breath sounds at the bases Abd: soft, nontender Ext: no edema CBC, BMP 10/25/17 06:20 10/25/17 06:20 Active Medications Buprenorphine/Naloxone (Suboxone 8mg/2mg Sl Film -) 1 each SL DAILY [facility] Last Admin: 10/25/17 09:04 Dose: 1 each Clonidine (Catapres -) 0.1 mg PO Q12H PRN PRN Reason: WITHDRAWAL(CONT SUBST) Diazepam (Valium -) 10 mg PO HS PRN PRN Reason: INSOMNIA Last Admin: 10/24/17 22:43 Dose: 10 mg Sodium Chloride (Normal Saline -) 1,000 mls @ 100 mls/hr IV ASDIR [facility] Last Admin: 10/25/17 07:49 Dose: 100 mls/hr Insulin Aspart (Novolog Vial Sliding Scale -) 1 vial SQ ACHS [facility] PRN Reason: Protocol Last Admin: 10/25/17 11:09 Dose: Not Given Insulin Detemir (Levemir Vial) 15 units SQ DAILY [facility] Multivit/Folic Acid/Iron ( Vitamins (Sjr) -) 1 tab PO DAILY [facility] Last Admin: 10/25/17 09:04 Dose: 1 tab Thiamine HCl (Vitamin B1 -) 100 mg PO HS [facility] Last Admin: 10/24/17 22:43 Dose: 100 mg ASSESSMENT AND PLAN: Diabetic Ketoacidosis resolved Acute Kidney Injury improving Metabolic/Lactic Acidosis improving Opiate Dependence h/o IVDA - continue levemir - monitor BGM, BMP - continue IVF - monitor urine output, creatinine - PO as tolerated - antiemetics - continue suboxone - DVT prophylaxis - can monitor on floor
[2017-10-25] MEDS: HEPARIN NA (PORCINE) 5,000 UNITS/ML 1ML VIAL SQ SCH ×2 (14:26→21:41)
[2017-10-25] MEDS ORDERED: diazePAM 5 MG TABLET PO PRN (15:12)
[2017-10-25] MEDS ORDERED: INSULIN (NOVOLOG) ASPART 100 UNITS/ML 10ML VIAL ONE (15:45)
[2017-10-25] MEDS ORDERED: cloNIDine HCL 0.1 MG TABLET PO PRN (16:37)
--- NOTE | 2017-10-25 18:30 | PN ---
Progress Note, Physician History of Present Illness: feeling better - Current Medication List Current Medications: Active Medications Buprenorphine/Naloxone (Suboxone 8mg/2mg Sl Film -) 1 each SL DAILY [facility] Clonidine (Catapres -) 0.1 mg PO Q12H PRN PRN Reason: WITHDRAWAL(CONT SUBST) Diazepam (Valium -) 10 mg PO HS PRN PRN Reason: INSOMNIA Heparin Sodium (Porcine) (Heparin -) 5,000 unit SQ TID [facility] Last Admin: 10/25/17 14:26 Dose: 5,000 unit Sodium Chloride (Normal Saline -) 1,000 mls @ 100 mls/hr IV ASDIR [facility] Last Admin: 10/25/17 15:50 Dose: 100 mls/hr Insulin Aspart (Novolog Vial Sliding Scale -) 1 vial SQ ACHS [facility] PRN Reason: Protocol Last Admin: 10/25/17 15:52 Dose: 4 unit Insulin Detemir (Levemir Vial) 15 units SQ AM [facility] Multivit/Folic Acid/Iron ( Vitamins (Sjr) -) 1 tab PO DAILY [facility] Thiamine HCl (Vitamin B1 -) 100 mg PO HS ROBIN - Objective Vital Signs: Vital Signs Temperature 98.6 F 10/25/17 15:30 Pulse Rate 69 10/25/17 15:30 Respiratory Rate 18 10/25/17 15:30 Blood Pressure 122/85 10/25/17 15:30 O2 Sat by Pulse Oximetry (%) 98 10/25/17 15:30 Constitutional: Yes: No Distress HENT: Yes: Atraumatic Neck: Yes: Supple Cardiovascular: Yes: Regular Rate and Rhythm Respiratory: Yes: CTA Bilaterally Gastrointestinal: Yes: Normal Bowel Sounds Extremities: Yes: WNL Labs: CBC, BMP 10/25/17 06:20 10/25/17 06:20 Problem List - Problems (1) Acute kidney injury Assessment/Plan: cr wnl Code(s): N17.9 - ACUTE KIDNEY FAILURE, UNSPECIFIED (2) Diabetic ketoacidosis Assessment/Plan: on insulin bgms endocrine consult..noted Code(s): E13.10 - OTH DIABETES MELLITUS WITH KETOACIDOSIS WITHOUT COMA (3) Heroin abuse Code(s): F11.10 - OPIOID ABUSE, UNCOMPLICATED
--- NOTE | 2017-10-25 19:05 | CON.ID ---
Consult Consult Specialty:: infectious diseases Reason for Consultation:: leukocytosis - History of Present Illness History of Present Illness: 21M w/ hx of DM, DKA, IV drug use, PNA, MRSA, and abscess requiring I&D who presents admitted because of high sugars. patient is non compliant but states that he took his insulin at night patients sugars were in the 500s . patient complained of nausea, SOB, and abdominal pain. He denies fevers, chills, headache, chest pain, cough, diarrhea, constipation, and dysuria. He states that he "sniffed a bag of heroine yesterday," that he takes 8mg of suboxone daily, but he ran out of that as well. he is more sleepy - History Source History Provided By: Patient, Medical Record Limitations to Obtaining History: Clinical Condition - Past Medical History Pulmonary: Yes: Pneumonia Gastrointestinal: Yes: Other (Hep C) Infectious Disease: Yes: Other (HEP C) Psych: Yes: Addictions Endocrine: Yes: Diabetes Mellitus Additional Medical History: polysubstance use - Alcohol/Substance Use Hx Alcohol Use: No History of Substance Use: reports: Cocaine, Heroin, Marijuana - Smoking History Smoking history: Current every day smoker Have you smoked in the past 12 months: Yes Aproximately how many cigarettes per day: 20 - Social History Usual Living Arrangement: With Significant Other ADL: Independent Home Medications - Allergies Allergies/Adverse Reactions: Allergies Allergy/AdvReac Type Severity Reaction Status Date / Time fish derived Allergy Verified 10/24/17 07:41 fish Allergy Uncoded 10/24/17 07:41 - Home Medications Home Medications: Ambulatory Orders Insulin Aspart [Novolog] 100 unit SQ ASDIR 07/01/15 Zolpidem Tartrate [Ambien] 10 mg PO HS 09/20/17 Insulin Glargine,Hum.rec.anlog [Lantus Solostar PEN -] 8 units SQ DAILY #1 pen 09/26/17 Insulin Glargine,Hum.rec.anlog [Lantus Solostar PEN -] 30 units SQ HS #1 ea Linezolid [Zyvox (Restricted To Id) -] 600 mg PO BID #22 tablet 09/26/17 Lisinopril [Prinivil] 10 mg PO DAILY #30 tablet 09/26/17 Buprenorphine/Naloxone [Suboxone 8Mg/2Mg Sl Film -] 1 each SL DAILY #30 film MDD 1 10/24/17 Family Disease History - Family Disease History Family Disease History: Other: Father (healthy), Mother (healthy), Brother (IDDM ) Review of Systems - Review of Systems Constitutional: reports: Other Eyes: reports: No Symptoms HENT: reports: No Symptoms Neck: reports: No Symptoms Cardiovascular: reports: No Symptoms Respiratory: reports: SOB Genitourinary: reports: No Symptoms Musculoskeletal: reports: No Symptoms Integumentary: reports: No Symptoms Neurological: reports: Confusion, Other Endocrine: reports: No Symptoms Hematology/Lymphatic: reports: No Symptoms Psychiatric: reports: No Symptoms Physical Exam Vital Signs: Vital Signs Temperature 98.6 F 10/25/17 15:30 Pulse Rate 69 10/25/17 15:30 Respiratory Rate 18 10/25/17 15:30 Blood Pressure 122/85 10/25/17 15:30 O2 Sat by Pulse Oximetry (%) 98 10/25/17 15:30 Constitutional: Yes: No Distress, Calm, Other Eyes: Yes: Conjunctiva Clear HENT: Yes: Atraumatic, Normocephalic Neck: Yes: Supple, Trachea Midline Cardiovascular: Yes: Regular Rate and Rhythm Respiratory: Yes: Regular, CTA Bilaterally Gastrointestinal: Yes: Normal Bowel Sounds, Soft Musculoskeletal: Yes: WNL Extremities: Yes: WNL Neurological: Yes: Alert, Other Psychiatric: Yes: Alert Labs: CBC, BMP 10/25/17 06:20 10/25/17 06:20 Imaging - Results Chest X-ray: Report Reviewed, Image Reviewed Assessment/Plan patient in the icu with diabetic ketoacidosis patient received ceftriaxone one dose Problem List - Problems (1) Acute kidney injury Code(s): N17.9 - ACUTE KIDNEY FAILURE, UNSPECIFIED (2) Diabetic ketoacidosist Code(s): E13.10 - OTH DIABETES MELLITUS WITH KETOACIDOSIS WITHOUT COMA (3) Heroin abuse Code(s): F11.10 - OPIOID ABUSE, UNCOMPLICATED Acute Kidney Injury improving Metabolic/Lactic Acidosis improving Opiate Dependence h/o IVDA plan continue hydration sugar control monitor closely would hold of on abx rest continue as per icu rest as per the team
[2017-10-25] MEDS ORDERED: THIAMINE HCL 100 MG TABLET (FP) PO SCH (22:00)
--- NOTE | 2017-10-26 02:01 | CONSULT ---
Consult Consult Specialty:: endocrine Referred by:: jose Reason for Consultation:: diabetes mellitus uncontrolled non compliant - History of Present Illness Chief Complaint: high sugars History of Present Illness: 21 year old male, with a significant past medical history of diabetes( on Lantus and Novolog), Hepatitis C and IV drug abuse(heroin), who presents to the emergency department with nausea, vomiting, and headache since last night. The patient reports he is on Suboxone for heroin use, and states he ran out, and subsequently used heroin has had uncontrolled diabetes for years admitts non compliant with meds and diet admitted with dka to icu recieved iv insulin and fluids improving clinically,aware of risks and benifits of insulin use and aware of bed bug exterminator consequence of non compliance and recurrent dka episode potential coma from high or low sugars - Past Medical History Pulmonary: Yes: Pneumonia Gastrointestinal: Yes: Other (Hep C) Infectious Disease: Yes: Other (HEP C) Psych: Yes: Addictions Endocrine: Yes: Diabetes Mellitus Additional Medical History: polysubstance use - Alcohol/Substance Use Hx Alcohol Use: No History of Substance Use: reports: Cocaine, Heroin, Marijuana - Smoking History Smoking history: Current every day smoker Have you smoked in the past 12 months: Yes Aproximately how many cigarettes per day: 20 - Social History Usual Living Arrangement: With Significant Other ADL: Independent Home Medications - Allergies Allergies/Adverse Reactions: Allergies Allergy/AdvReac Type Severity Reaction Status Date / Time fish derived Allergy Verified 10/24/17 07:41 fish Allergy Uncoded 10/24/17 07:41 - Home Medications Home Medications: Ambulatory Orders Insulin Aspart [Novolog] 100 unit SQ ASDIR 07/01/15 Zolpidem Tartrate [Ambien] 10 mg PO HS 09/20/17 Insulin Glargine,Hum.rec.anlog [Lantus Solostar PEN -] 8 units SQ DAILY #1 pen 09/26/17 Insulin Glargine,Hum.rec.anlog [Lantus Solostar PEN -] 30 units SQ HS #1 ea Linezolid [Zyvox (Restricted To Id) -] 600 mg PO BID #22 tablet 09/26/17 Lisinopril [Prinivil] 10 mg PO DAILY #30 tablet 09/26/17 Buprenorphine/Naloxone [Suboxone 8Mg/2Mg Sl Film -] 1 each SL DAILY #30 film MDD 1 10/24/17 Family Disease History - Family Disease History Family Disease History: Other: Father (healthy), Mother (healthy), Brother (IDDM ) Review of Systems - Review of Systems Constitutional: reports: Lethargy, Weakness Eyes: reports: No Symptoms HENT: reports: No Symptoms Neck: reports: No Symptoms Cardiovascular: reports: Shortness of Breath Respiratory: reports: Exercise Intolerance, SOB on Exertion Gastrointestinal: reports: Bloating, Nausea Genitourinary: reports: No Symptoms Breasts: reports: No Symptoms Reported Musculoskeletal: reports: Muscle Pain, Muscle Cramps, Muscle Weakness Integumentary: reports: No Symptoms Neurological: reports: Numbness, Weakness Endocrine: reports: Unexplained Weight Loss Physical Exam Vital Signs: Vital Signs Temperature 98.2 F 10/25/17 21:34 Pulse Rate 82 10/25/17 21:34 Respiratory Rate 21 10/25/17 21:34 Blood Pressure 124/64 10/25/17 21:34 O2 Sat by Pulse Oximetry (%) 96 10/25/17 20:31 Constitutional: Yes: Anxious Eyes: Yes: EOM Intact HENT: Yes: Normocephalic Neck: Yes: Trachea Midline Cardiovascular: Yes: Regular Rate and Rhythm Respiratory: Yes: CTA Bilaterally Gastrointestinal: Yes: Normal Bowel Sounds ...Rectal Exam: Yes: Deferred Renal/: Yes: WNL Breast(s): Yes: WNL Musculoskeletal: Yes: Muscle Weakness Extremities: Yes: Delayed Capillary Refill, Pallor Edema: No Neurological: Yes: Alert, Oriented Labs: CBC, BMP 10/25/17 06:20 10/25/17 06:20 Problem List - Problems (1) Acute kidney injury Code(s): N17.9 - ACUTE KIDNEY FAILURE, UNSPECIFIED (2) Diabetic ketoacidosis Code(s): E13.10 - OTH DIABETES MELLITUS WITH KETOACIDOSIS WITHOUT COMA (3) Heroin abuse Code(s): F11.10 - OPIOID ABUSE, UNCOMPLICATED (4) Abscess of forearm Code(s): L02.419 - CUTANEOUS ABSCESS OF LIMB, UNSPECIFIED (5) Abscess of left forearm Code(s): L02.414 - CUTANEOUS ABSCESS OF LEFT UPPER LIMB Assessment/Plan Current Active Problems Acute kidney injury (Acute) Diabetic ketoacidosis (Acute) Heroin abuse (Acute) iddm uncontrolled non compliance Abnormal Lab Results 10/25/17 10/25/17 06:20 06:20 WBC 11.4 H RBC 3.22 L D Hgb 9.7 L D Hct 28.3 L D RDW 17.2 H MPV 7.2 L D Anion Gap 7 L BUN 20 H D Random Glucose 41 L* D Calcium 7.1 L Phosphorus 1.9 L D Total Protein 6.1 L D Albumin 2.4 L Laboratory Results - last 24 hr 10/24/17 10/24/17 10/24/17 13:51 15:15 16:45 WBC RBC Hgb Hct MCV MCH MCHC RDW Plt Count MPV Neutrophils % Lymphocytes % Monocytes % Eosinophils % Basophils % Sodium Potassium Chloride Carbon Dioxide Anion Gap BUN Creatinine Creat Clearance w eGFR POC Glucometer [phone] 123.92133 Random Glucose Calcium Phosphorus Magnesium Total Bilirubin AST ALT Alkaline Phosphatase Total Protein Albumin 10/24/17 10/24/17 10/24/17 18:36 20:08 23:04 WBC RBC Hgb Hct MCV MCH MCHC RDW Plt Count MPV Neutrophils % Lymphocytes % Monocytes % Eosinophils % Basophils % Sodium Potassium Chloride Carbon Dioxide Anion Gap BUN Creatinine Creat Clearance w eGFR POC Glucometer 108.06812 176.70612 [phone] Random Glucose Calcium Phosphorus Magnesium Total Bilirubin AST ALT Alkaline Phosphatase Total Protein Albumin 10/25/17 10/25/17 10/25/17 06:20 06:20 06:24 WBC 11.4 H RBC 3.22 L D Hgb 9.7 L D Hct 28.3 L D MCV 88.0 MCH 30.0 MCHC 34.1 RDW 17.2 H Plt Count 248 MPV 7.2 L D Neutrophils % 66.0 D Lymphocytes % 26.4 D Monocytes % 6.9 D Eosinophils % 0.4 D Basophils % 0.3 Sodium 137 Potassium 3.6 Chloride 101 Carbon Dioxide 29 D Anion Gap 7 L BUN 20 H D Creatinine 1.2 D Creat Clearance w eGFR > 60 POC Glucometer < 50 Random Glucose 41 L* D Calcium 7.1 L Phosphorus 1.9 L D Magnesium 2.2 D Total Bilirubin 0.5 AST 30 D ALT 24 D Alkaline Phosphatase 111 D Total Protein 6.1 L D Albumin 2.4 L 10/25/17 10/25/17 10/25/17 10:55 15:51 21:11 WBC RBC Hgb Hct MCV MCH MCHC RDW Plt Count MPV Neutrophils % Lymphocytes % Monocytes % Eosinophils % Basophils % Sodium Potassium Chloride Carbon Dioxide Anion Gap BUN Creatinine Creat Clearance w eGFR POC Glucometer [phone] 276 Random Glucose Calcium Phosphorus Magnesium Total Bilirubin AST ALT Alkaline Phosphatase Total Protein Albumin plan; bgm novolog insulin scale levemir 20 units am advance as needed levemir am dose nutrition consult psych consult
[2017-10-26] MEDS: HEPARIN NA (PORCINE) 5,000 UNITS/ML 1ML VIAL SQ SCH ×2 (06:08→14:53)
[2017-10-26] MEDS: INSULIN SLIDING SCALE (NOVOLOG) 1 VIAL SQ SCH ×3 (06:09→17:31)
[2017-10-26] MEDS: SODIUM CHLORIDE 1,000 ML IV SCH ×2 (06:48→18:02)
[2017-10-26] MEDS ORDERED: INSULIN (LEVEMIR) 100 UNITS/ML UNITS SQ SCH ×2 (07:00)
[2017-10-26 07:25] LABS: HEMATOCRIT 32.9 % (35.4-49); MCH 30.2 pg (25.7-33.7); MCHC 33.5 g/dl (32.0-35.9); MEAN CELL VOLUME 90.2 fl (80-96); MEAN PLT VOLUME 7.7 fl (7.5-11.1); PLATELET COUNT 199 K/MM3 (134-434); RBC 3.65 M/mm3 (4.00-5.60); RDW 16.3 % (11.9-15.9); WHITE BLOOD COUNT 5.5 K/mm3 (4.0-10.0)
[2017-10-26 08:09] LABS: ALBUMIN 2.2 g/dl (3.4-5.0); ANION GAP 13 (8-16); BLOOD UREA NITROGEN 17 mg/dL (7-18); CALCIUM 7.4 mg/dL (8.5-10.1); CHLORIDE 98 mmol/L (98-107); CO2 21 mmol/L (21-32); CREATININE 1.2 mg/dL (0.7-1.3); POTASSIUM 3.9 mmol/L (3.5-5.1); SGOT/AST 49 U/L (15-37); SGPT/ALT 31 U/L (12-78); SODIUM 132 mmol/L (136-145)
[2017-10-26 08:15] LABS: ALK PHOS 134 U/L (45-117); BILIRUBIN,TOTAL 0.6 mg/dL (0.2-1.0); TOT PROT 6.3 g/dl (6.4-8.2)
[2017-10-26 08:24] LABS: GLUCOSE,RANDOM 477 mg/dL (74-106)
[2017-10-26] MEDS ORDERED: PT OWN MED DRAWER 7, Y5N ONE (09:58)
[2017-10-26] MEDS ORDERED: BUPRENORPHINE/NALOXONE 8 MG/2 MG FILM PACKET SL SCH (10:00)
[2017-10-26] MEDS ORDERED: PRENATAL VITAMINS W/ FOLIC ACID TABLET (FP) PO SCH (10:00)
--- NOTE | 2017-10-26 13:38 | PN ---
Progress Note, Physician History of Present Illness: patient stable no new issues - Current Medication List Current Medications: Active Medications Buprenorphine/Naloxone (Suboxone 8mg/2mg Sl Film -) 1 each SL DAILY [facility] Last Admin: 10/26/17 10:00 Dose: 1 each Clonidine (Catapres -) 0.1 mg PO Q12H PRN PRN Reason: WITHDRAWAL(CONT SUBST) Diazepam (Valium -) 10 mg PO HS PRN PRN Reason: INSOMNIA Last Admin: 10/25/17 21:42 Dose: 10 mg Heparin Sodium (Porcine) (Heparin -) 5,000 unit SQ TID [facility] Last Admin: 10/26/17 06:08 Dose: 5,000 unit Sodium Chloride (Normal Saline -) 1,000 mls @ 100 mls/hr IV ASDIR [facility] Last Admin: 10/26/17 06:48 Dose: 100 mls/hr Insulin Aspart (Novolog Vial Sliding Scale -) 1 vial SQ ACHS [facility] PRN Reason: Protocol Last Admin: 10/26/17 12:00 Dose: 6 unit Insulin Detemir (Levemir Vial) 18 units SQ AM [facility] Last Admin: 10/26/17 06:09 Dose: 18 units Multivit/Folic Acid/Iron ( Vitamins (Sjr) -) 1 tab PO DAILY [facility] Last Admin: 10/26/17 10:00 Dose: 1 tab Thiamine HCl (Vitamin B1 -) 100 mg PO HS [facility] Last Admin: 10/25/17 21:41 Dose: 100 mg - Objective Vital Signs: Vital Signs Temperature 98.3 F 10/26/17 08:56 Pulse Rate 93 H 10/26/17 08:56 Respiratory Rate 16 10/26/17 09:00 Blood Pressure 123/94 10/26/17 08:56 O2 Sat by Pulse Oximetry (%) 98 10/26/17 09:00 Constitutional: Yes: No Distress, Calm Cardiovascular: Yes: Regular Rate and Rhythm Respiratory: Yes: Regular, CTA Bilaterally Gastrointestinal: Yes: Normal Bowel Sounds, Soft Musculoskeletal: Yes: WNL Extremities: Yes: WNL Neurological: Yes: Alert, Oriented Psychiatric: Yes: Alert, Oriented Labs: CBC, BMP 10/26/17 06:52 10/26/17 06:52 Assessment/Plan patient in the icu with diabetic ketoacidosis patient received ceftriaxone one dose Problem List - Problems (1) Acute kidney injury Code(s): N17.9 - ACUTE KIDNEY FAILURE, UNSPECIFIED (2) Diabetic ketoacidosist Code(s): E13.10 - OTH DIABETES MELLITUS WITH KETOACIDOSIS WITHOUT COMA (3) Heroin abuse Code(s): F11.10 - OPIOID ABUSE, UNCOMPLICATED Acute Kidney Injury improving Metabolic/Lactic Acidosis improving Opiate Dependence h/o IVDA plan continue hydration sugar control patient improving rest as per the team
--- NOTE | 2017-10-26 17:24 | DS ---
Physical Examination Vital Signs: Vital Signs Temperature 97.3 F L 10/26/17 14:00 Pulse Rate 88 10/26/17 14:00 Respiratory Rate 18 10/26/17 14:00 Blood Pressure 112/74 10/26/17 14:00 O2 Sat by Pulse Oximetry (%) 98 10/26/17 09:00 Constitutional: Yes: No Distress HENT: Yes: Atraumatic Neck: Yes: Supple Cardiovascular: Yes: Regular Rate and Rhythm Respiratory: Yes: CTA Bilaterally Gastrointestinal: Yes: Normal Bowel Sounds Extremities: Yes: WNL Neurological: Yes: Alert, Oriented Labs: CBC, BMP 10/26/17 06:52 10/26/17 06:52 Discharge Summary Reason For Visit: TYPE 1 DIABETES MELLITUS W KETOACIDOSIS Current Active Problems Acute kidney injury (Acute) Diabetic ketoacidosis (Acute) Heroin abuse (Acute) Condition: Critical - Instructions Diet, Activity, Other Instructions: monitor blood sugars follow up wit dr meeks...endocrine Referrals: David Davis MD [Staff Physician] - - Home Medications Comprehensive Discharge Medication List: Ambulatory Orders Insulin Aspart [Novolog] 100 unit SQ ASDIR 07/01/15 Zolpidem Tartrate [Ambien] 10 mg PO HS 09/20/17 Insulin Glargine,Hum.rec.anlog [Lantus Solostar PEN -] 8 units SQ DAILY #1 pen 09/26/17 Insulin Glargine,Hum.rec.anlog [Lantus Solostar PEN -] 30 units SQ HS #1 ea Linezolid [Zyvox (Restricted To Id) -] 600 mg PO BID #22 tablet 09/26/17 Lisinopril [Prinivil] 10 mg PO DAILY #30 tablet 09/26/17 Buprenorphine/Naloxone [Suboxone 8Mg/2Mg Sl Film -] 1 each SL DAILY #30 film MDD 1 10/24/17 Insulin (Levemir) [Levemir Vial] 18 units SQ AM #1 ml 10/26/17 Vitamins (Sjr) - 1 tab PO DAILY #30 tablet 10/26/17 Thiamine HCl [Vitamin B1 -] 100 mg PO HS #30 tablet 10/26/17 [place] [facility]
[2017-10-26 19:45] VITALS: BP 116/80; PULSE 82; TEMP 98.4
[2017-10-27] MEDS ORDERED: INSULIN (LEVEMIR) 100 UNITS/ML UNITS SQ SCH (07:00)
== END 2017-10-26 20:07 | disposition home or self-care (01) | DRG 460 ==
LOC: JER 07:36 → JERBED 09:56 → JICU 13:39 → J6S 10-25 15:13
PROVIDERS: ADMIT Internal Medicine; ATTEND Internal Medicine
PROC: HZ2ZZZZ Detoxification Services for Substance Abuse Treatment (ICD-10-PCS; principal; 2017-10-24)
DX: N17.9 Acute kidney failure, unspecified (principal); E10.10 Type 1 diabetes mellitus with ketoacidosis without coma; F11.23 Opioid dependence with withdrawal; Z79.4 Long term (current) use of insulin; B19.20 Unspecified viral hepatitis C without hepatic coma; F17.210 Nicotine dependence, cigarettes, uncomplicated; E86.0 Dehydration; Z91.14 Patient's other noncompliance with medication regimen; L02.414 Cutaneous abscess of left upper limb
CPT/HCPCS: 36415; 71045-TC-FY; 80048; 80053; 80307; 81003; 81015; 82009; 82550; 82803; 82962; 83605; 83690; 83735; 84100; 84484; 85025; 85027; 87040; 87086; 93005; 93010; 99285-25; J1644; J3480; J7030

== ENCOUNTER 2018-02-01 13:26 | Inpatient (IN) | payer OTHER ==
[2018-02-01 14:14] VITALS: BMI 26.6
--- NOTE | 2018-02-01 14:59 | HP ---
Admission ROS S - HPI Chief Complaint: mandated by court to come in for rehab Allergies/Adverse Reactions: Allergies Allergy/AdvReac Type Severity Reaction Status Date / Time No Known Drug Allergies Allergy Verified 02/01/18 14:40 History of Present Illness: this 22 yeas old mal with heroin dependence,mandated by court to come in or rehab,last treatment 2016 get idddm herorin dependence longest priod of sobriety 6 months - Ebola screening Have you traveled outside of the country in the last 21 days: No Have you been sick,other than usual withdrawal symptoms: No - Review of Systems Constitutional: No Symptoms Reported EENT: reports: No Symptoms Reported Respiratory: reports: No Symptoms reported Cardiac: reports: No Symptoms Reported GI: reports: No Symptoms Reported : reports: No Symptoms Reported Musculoskeletal: reports: No Symptoms Reported Integumentary: reports: No Symptoms Reported Neuro: reports: No Symptoms reported Endocrine: reports: No Symptoms Reported Hematology: reports: No Symptoms Reported Psychiatric: reports: No Sypmtoms Reported, Judgement Intact, Mood/Affect Appropiate Patient History - Patient Medical History Hx Anemia: No Hx Asthma: No Hx Chronic Obstructive Pulmonary Disease (COPD): No Hx Cancer: No Hx Cardiac Disorders: No Hx Congestive Heart Failure: No Hx Hypertension: No Hx Hypercholesterolemia: No HX Cerebrovascular Accident: No Hx Seizures: No Hx Diabetes: Yes (Type 1 on Humolog and Lantus) Hx Gastrointestinal Disorders: No Hx Liver Disease: No Hx Genitourinary Disorders: No Hx Sexually Transmitted Disorders: No Hx Renal Disease (ESRD): Yes Hx Thyroid Disease: No Hx Human Immunodeficiency Virus (HIV): No (last 11/26) Hx Hepatitis C: Yes Hx Depression: No Hx Suicide Attempt: No (Denies suicidal ideation) Hx Bipolar Disorder: No Hx Schizophrenia: No Other Medical History: no sucidal,no homicidal - Patient Surgical History Past Surgical History: Yes Hx Neurologic Surgery: No Hx Cardiac Surgery: No Hx Lung Surgery: No Hx Abdominal Surgery: No Hx Appendectomy: No Hx Cholecystectomy: No Hx Orthopedic Surgery: No Other Surgical History: i and d abscess left forearm - PPD History Previous Implant?: Yes Documented Results: Negative w/proof Date: 04/20/17 PPD to be Administered?: No - Smoking Cessation Smoking history: Current every day smoker Have you smoked in the past 12 months: Yes Aproximately how many cigarettes per day: 20 Hx Chewing Tobacco Use: No Initiated information on smoking cessation: Yes 'Breaking Loose' booklet given: 02/01/18 - Substance & Tx. History Hx Alcohol Use: No Hx Substance Use: Yes Substance Use Type: Heroin Hx Substance Use Treatment: Yes - Substances Abused Heroin Route: Injection Frequency: Daily Amount used: 10 bags Age of first use: 14 Date of Last Use: 12/03/17 Family Disease History - Family Disease History Family Disease History: Other: Father (healthy), Mother (healthy), Brother (IDDM ) Admission Physical Exam [facility] - Vital Signs Vital Signs: Vital Signs - 24 hr 02/01/18 14:11 Temperature 98.7 F Pulse Rate 125 H Respiratory 20 Rate Blood Pressure 131/81 - Physical General Appearance: Yes: Within Normal Limits HEENTM: Yes: Normal ENT Inspection, THIERRY, Pharynx Normal Respiratory: Yes: Lungs Clear, Normal Breath Sounds, No Respiratory Distress Neck: Yes: Supple, Trachea in good position Breast: Yes: Within Normal Limits Cardiology: Yes: Within Normal Limits, Regular Rhythm, Regular Rate, S1, S2 Abdominal: Yes: Within Normal Limits, Normal Bowel Sounds, Non Tender, Flat, Soft Genitourinary: Yes: Within Normal Limits Back: Yes: Within Normal Limits Musculoskeletal: Yes: Within Normal Limits Extremities: Yes: Within Normal Limits 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 NML intact, Fully Oriented, Alert, Motor Strength 5/5 Integumentary: Yes: Dry, Track [place] Lymphatic: Yes: Within Normal Limits - Diagnostic (1) Opioid dependence Status: Acute (2) IDDM (insulin dependent diabetes mellitus) Status: Acute Cleared for Admission [facility] - Detox or Rehab Claeared for Rehab Admission: Yes [facility] Breath Alcohol Content Breath Alcohol Content: 0 Urine Drug Screen - Results Drug Screen Negative: Yes Inpatient Rehab Admission - Initial Determination Are CD services needed?: Yes Free of communicable disease: Yes Not in need of hospitalization: Yes - Rehab Admission Criteria Previous failed treatment: Yes Poor recovery environment: Yes Comorbidities: Yes Patient is meeting Inpatient Rehab admission criteria:: Yes
[2018-02-01] MEDS ORDERED: MAGNESIUM CITRATE 300 ML BOTTLE PO PRN (15:13)
[2018-02-01] MEDS ORDERED: ACETAMINOPHEN 325 MG TABLET (FP) PO PRN (15:13)
[2018-02-01] MEDS ORDERED: MENTHOL/PHENOL 1 EACH UD MM PRN (15:13)
[2018-02-01] MEDS ORDERED: NICOTINE POLACRILEX 2 MG GUM BC PRN (15:13)
[2018-02-01] MEDS ORDERED: IBUPROFEN 400 MG TABLET (FP) PO PRN (15:13)
[2018-02-01] MEDS ORDERED: guaiFENesin/D-METHORPHAN HB 10 ML UNIT-DOSE CUPS PO PRN (15:13)
[2018-02-01] MEDS ORDERED: P-EPHED 60MG/TRIPROLIDI 2.5MG TABLET PO PRN (15:13)
[2018-02-01] MEDS ORDERED: MAG HYDROX/AL HYDROX/SIMETH 30 ML UNIT-DOSE CUP PO PRN (15:13)
[2018-02-01] MEDS ORDERED: MAGNESIUM HYDROX 2400MG/30ML ORAL SUSPENSION 30 ML CUP PO PRN (15:13)
[2018-02-01] MEDS ORDERED: hydrOXYzine PAMOATE 50 MG CAPSULE (FP) PO PRN (15:13)
[2018-02-01] MEDS ORDERED: LOPERAMIDE HCL 2 MG CAPSULE PO PRN (15:13)
[2018-02-01] MEDS ORDERED: THIAMINE HCL 100 MG TABLET (FP) PO SCH (22:00)
[2018-02-01] MEDS ORDERED: MELATONIN 5 MG TABLETS PO PRN (22:00)
[2018-02-01] MEDS ORDERED: INSULIN (LEVEMIR) 100 UNITS/ML UNITS SQ SCH (22:00)
[2018-02-01] MEDS: INSULIN (NOVOLOG) ASPART 100 UNITS/ML 10ML VIAL SQ SCH ×2 (23:34→23:58)
[2018-02-02 01:30] LABS: URINE APPEARANCE CLEAR; URINE BILIRUBIN NEGATIVE (<2.0 mg/dL); URINE GLUCOSE (UA) NEGATIVE (NEGATIVE); URINE KETONE NEGATIVE (NEGATIVE); URINE LEUK ESTERASE NEGATIVE (NEGATIVE); URINE NITRITE NEGATIVE (NEGATIVE)
[2018-02-02 01:34] LABS: URINE COLOR YELLOW; URINE PROTEIN 3+ (NEGATIVE)
[2018-02-02 01:39] LABS: URINE MUCUS RARE
[2018-02-02] MEDS: INSULIN (NOVOLOG) ASPART 100 UNITS/ML 10ML VIAL SQ SCH ×2 (06:26→11:41)
[2018-02-02 07:18] VITALS: TEMP 98.1
[2018-02-02] MEDS ORDERED: PRENATAL VITAMINS W/ FOLIC ACID TABLET (FP) PO SCH (10:00)
[2018-02-02] MEDS ORDERED: LISINOPRIL 10 MG TABLET (FP) PO SCH (10:00)
[2018-02-02 10:12] LABS: HEMATOCRIT 36.8 % (35.4-49); HEMOGLOBIN 12.4 GM/dL (11.7-16.9); MCHC 33.7 g/dl (32.0-35.9); MEAN CELL VOLUME 89.1 fl (80-96); PLATELET COUNT 210 K/MM3 (134-434); RBC 4.14 M/mm3 (4.00-5.60); RDW 12.5 % (11.9-15.9); WHITE BLOOD COUNT 4.6 K/mm3 (4.0-10.0)
[2018-02-02 10:24] LABS: CHLORIDE 110 mmol/L (98-107); POTASSIUM 3.7 mmol/L (3.5-5.1); SODIUM 146 mmol/L (136-145)
[2018-02-02 10:59] LABS: ALBUMIN 3.1 g/dl (3.4-5.0); ALK PHOS 100 U/L (45-117); ANION GAP 10 MMOL/L (8-16); BLOOD UREA NITROGEN 18 mg/dL (7-18); CALCIUM 8.9 mg/dL (8.5-10.1); CO2 26 mmol/L (21-32); CREATININE 0.7 mg/dL (0.7-1.3); GLUCOSE,RANDOM 177 mg/dL (74-106); SGOT/AST 34 U/L (15-37)
[2018-02-02 11:10] LABS: BILIRUBIN,TOTAL 1.1 mg/dL (0.2-1.0); SGPT/ALT 53 U/L (12-78); TOT PROT 6.6 g/dl (6.4-8.2)
[2018-02-02] MEDS ORDERED: INSULIN (NOVOLOG) ASPART 100 UNITS/ML 10ML VIAL ONE (11:43)
[2018-02-02 11:45] VITALS: BP 135/81; PULSE 117
--- NOTE | 2018-02-02 15:36 | PN ---
[facility] Progress Note Note: Psychiatry Attending's on-call note : Informed of patient's decison to leave the program.
--- NOTE | 2018-02-02 15:40 | PN ---
[facility] Progress Note Note: PATIENT REPORTS THAT HE WISHES TO LEAVE REHAB UNIT AGAINST MEDICAL ADVICE. COVERING PSYCHIATRIST TO BE MADE AWARE. PATIENT DECLINED OFFER OF MEDICATION PRESCRIPTION FOR HOME MEDICATION AT TIME OF LEAVING REHAB UNIT, NOTING THAT HE CURRENTLY HAS ADEQUATE SUPPLIES OF ALL PRESCRIBED HOME MEDICATIONS AT HOME. Josep NICHOLS [employer] MGR
--- NOTE | 2018-02-02 19:08 | EKG ---
Test Reason : Blood Pressure : / mmHG Vent. Rate : 107 BPM Atrial Rate : 107 BPM P-R Int : 136 ms QRS Dur : 088 ms QT Int : 334 ms P-R-T Axes : 063 061 046 degrees QTc Int : 445 ms SINUS TACHYCARDIA OTHERWISE NORMAL ECG WHEN COMPARED WITH ECG OF 24-OCT-2017 08:55, NONSPECIFIC T WAVE ABNORMALITY NO LONGER EVIDENT IN INFERIOR LEADS Confirmed by BHARAT CLEMONS MD [id number]) on 02/02/2018 7:08:29 PM Referred By: Confirmed By:BHARAT CLEMONS MD
== END 2018-02-02 15:45 | disposition left against medical advice (07) | DRG 770 ==
LOC: YASAS 13:26 → Y3W 15:14
PROVIDERS: ADMIT Psychiatry & Neurology Psychiatry; ATTEND Psychiatry & Neurology Psychiatry
PROC: HZ42ZZZ Group Counseling for Substance Abuse Treatment, Cognitive-Behavioral (ICD-10-PCS; principal; 2018-02-01)
DX: F11.20 Opioid dependence, uncomplicated (principal); F17.210 Nicotine dependence, cigarettes, uncomplicated; E10.9 Type 1 diabetes mellitus without complications; Z79.4 Long term (current) use of insulin
CPT/HCPCS: 36415; 80053; 81003; 81015; 82962; 85027; 86593; 93005; 93010

== ENCOUNTER 2024-02-14 05:47 | Inpatient (IN) | payer OTHER ==
[2024-02-14] MEDS: ACETAMINOPHEN 1000 MG/100 ML BAG IVPB ONE (09:31)
[2024-02-14] MEDS ORDERED: ACETAMINOPHEN INJECTION 100 ML ONE (09:31)
[2024-02-14 09:36] LABS: VENOUS BASE EXCESS 9.4 mmol/L (-2-2); VENOUS O2 SATURATION 54.2 % (70-80); VENOUS PCO2 43.1 mmHg (38-52); VENOUS PH 7.507 (7.310-7.410)
[2024-02-14 09:46] LABS: BASO % 0.5 % (0-2.0); EOS % 0.2 % (0-4.5); HEMATOCRIT 27.7 % (35.4-49); HEMOGLOBIN 9.5 GM/dL (11.7-16.9); LYMPH % 8.8 % (8-40); MCH 30.1 pg (25.7-33.7); MCHC 34.1 g/dl (32.0-35.9); MEAN CELL VOLUME 88.1 fl (80-96); MEAN PLT VOLUME 7.7 fl (7.5-11.1); NEUT % 85.5 % (42.8-82.8); PLATELET COUNT 819 10^3/uL (134-434); RBC 3.15 M/mm3 (4.00-5.60); RDW 14.7 % (11.9-15.9)
[2024-02-14 10:02] LABS: CHLORIDE 84 mmol/L (98-107); SODIUM 124 mmol/L (136-145)
[2024-02-14 10:03] LABS: ALBUMIN 1.4 g/dl (3.4-5.0); CALCIUM 8.4 mg/dL (8.5-10.1); CO2 30 mmol/L (21-32)
[2024-02-14 10:04] LABS: ANION GAP 9 mmol/L (4-13); BLOOD UREA NITROGEN 27.7 mg/dL (7-18); GLUCOSE,RANDOM 290 mg/dL (74-106); POTASSIUM 7.4 mmol/L (3.5-5.1)
[2024-02-14 10:06] LABS: EPI CELLS 15 /uL (0-25.1); HYALINE CASTS 1 /uL (0-3.1); SGOT/AST 101 U/L (15-37); URINE APPEARANCE CLEAR; URINE BACTERIA 6 /uL (0-1359); URINE BILIRUBIN NEGATIVE (NEGATIVE); URINE COLOR YELLOW; URINE GLUCOSE (UA) 1+ (NEGATIVE); URINE KETONE NEGATIVE (NEGATIVE); URINE LEUK ESTERASE NEGATIVE (NEGATIVE); URINE NITRITE NEGATIVE (NEGATIVE); URINE PROTEIN 2+ (NEGATIVE); URINE RBC 190 /uL (0-23.9); URINE WBC 30 /uL (0-25.8)
[2024-02-14 10:07] LABS: CREATININE 1.2 mg/dL (0.55-1.3)
[2024-02-14 10:08] LABS: BILIRUBIN,TOTAL 0.6 mg/dL (0.2-1); SGPT/ALT 42 U/L (13-61); TOT PROT 8.9 g/dl (6.4-8.2)
[2024-02-14 10:09] LABS: ALK PHOS 244 U/L (45-117)
[2024-02-14] MEDS ORDERED: PIPERACILLIN/TAZOB 3.375 GM 3.375 GM/50 ML BAG IVPB ONE (10:33)
[2024-02-14] MEDS ORDERED: VANCOMYCIN 1 GRAM (PRE-DOCKED) 1,000 MG/250 ML BAG IVPB ONE (10:33)
[2024-02-14 10:47] LABS: ERYTHROCYTE SEDIMENTATION RATE 114 mm/hr (0-10)
[2024-02-14] MEDS: PIPERACILLIN/TAZOB 3.375 GM 3.375 GM in DEXTROSE 5%-WATER - 50 ML IVPB ONE (10:57)
[2024-02-14] MEDS: methaDONE 80 MG, methaDONE 10 MG PO ONE (10:57)
[2024-02-14] MEDS: VANCOMYCIN 1,000 MG in DEXTROSE 5%-WATER - 250 ML IVPB ONE (10:57)
[2024-02-14] MEDS ORDERED: methaDONE HCL 40 MG DISPERSABLE TABLET ONE (10:59)
[2024-02-14] MEDS ORDERED: methaDONE HCL 10 MG TABLET ONE (10:59)
[2024-02-14 11:33] LABS: CHLORIDE 86 mmol/L (98-107); POTASSIUM 5.7 mmol/L (3.5-5.1); SODIUM 125 mmol/L (136-145)
[2024-02-14 11:34] LABS: CALCIUM 7.7 mg/dL (8.5-10.1)
[2024-02-14 11:35] LABS: ANION GAP 8 mmol/L (4-13); BLOOD UREA NITROGEN 28.8 mg/dL (7-18); CO2 31 mmol/L (21-32)
[2024-02-14 11:38] LABS: CREATININE 1.4 mg/dL (0.55-1.3); GLUCOSE,RANDOM 475 mg/dL (74-106)
[2024-02-14] MEDS: LACTATED RINGERS SOLUTION 1000 ML INFUS.BAG IV ONE (12:09)
[2024-02-14] MEDS ORDERED: INSULIN REGULAR HUMAN 100 UNITS/ML *VIAL ONE (12:11)
[2024-02-14] MEDS: INSULIN REGULAR HUMAN 100 UNITS/ML *VIAL IVPUSH ONE (12:12)
[2024-02-14] MEDS ORDERED: LIDOCAINE HCL 1%, 10 MG/ML (20ML VIAL) ONE (12:52)
[2024-02-14] MEDS ORDERED: PIPERACILLIN/TAZOB 4.5 GM 4.5 GM in DEXTROSE 5%-WATER 100 ML IVPB SCH (15:00)
[2024-02-14] MEDS: SODIUM CHLORIDE 1,000 ML IV SCH (15:08)
[2024-02-14] MEDS ORDERED: NICOTINE 21 MG/24 HOURS TOPICAL PATCH ONE (15:09)
[2024-02-14] MEDS: PIPERACILLIN/TAZOB 4.5 GM 4.5 GM in DEXTROSE 5%-WATER 100 ML IVPB SCH (15:11)
[2024-02-14] MEDS ORDERED: PIPERACILLIN/TAZOB 4.5 GM 4.5 GM/100 ML BAG IVPB ONE ×2 (15:11→21:15)
[2024-02-14] MEDS: NICOTINE 21 MG/24 HOURS TOPICAL PATCH TD SCH (15:18)
[2024-02-14] MEDS: INSULIN ASPART SLIDING SCALE (NOVOLOG) 1 VIAL SQ SCH (16:33)
[2024-02-14] MEDS ORDERED: INSULIN ASPART SLIDING SCALE (NOVOLOG) 1 VIAL SQ ONE (16:35)
[2024-02-14 16:51] LABS: CHLORIDE 86 mmol/L (98-107); POTASSIUM 4.7 mmol/L (3.5-5.1); SODIUM 124 mmol/L (136-145)
[2024-02-14 16:52] LABS: ANION GAP 8 mmol/L (4-13); BLOOD UREA NITROGEN 27.6 mg/dL (7-18); CALCIUM 7.3 mg/dL (8.5-10.1); CO2 29 mmol/L (21-32)
[2024-02-14 16:56] LABS: CREATININE 1.3 mg/dL (0.55-1.3)
[2024-02-14 17:02] LABS: GLUCOSE,RANDOM 626 mg/dL (74-106)
[2024-02-14] MEDS ORDERED: DEXTROSE 50%-WATER 25 GM/50 ML DISP.SYRIN IVPUSH PRN (20:03)
[2024-02-14] MEDS: KCL 10 MEQ IVPB 10 MEQ/100 ML INFUS.BAG IVPB SCH (20:26)
[2024-02-14] MEDS: INSULIN REGULAR 100 UNITS in SODIUM CHLORIDE 99 ML IVPB SCH (20:26)
[2024-02-14] MEDS ORDERED: POTASSIUM CHLORIDE ORAL LIQUID 20 MEQ/15 ML ONE (20:28)
[2024-02-14] MEDS: POTASSIUM CHLORIDE ORAL LIQUID 20 MEQ/15 ML PO ONE (20:41)
[2024-02-14] MEDS: INSULIN (NOVOLOG) ASPART 100 UNITS/ML 10ML VIAL SQ ONE (20:41)
[2024-02-14] MEDS ORDERED: VANCOMYCIN 1,000 MG in DEXTROSE 5%-WATER - 250 ML IVPB SCH (22:00)
[2024-02-14] MEDS ORDERED: INSULIN (LEVEMIR) 100 UNITS/ML UNITS SQ SCH (22:00)
[2024-02-14] MEDS: INSULIN (LEVEMIR) 100 UNITS/ML UNITS SQ SCH (23:29)
[2024-02-14] MEDS: HEPARIN NA (PORCINE) 5,000 UNITS/ML 1ML VIAL SQ SCH (23:29)
[2024-02-14] MEDS: VANCOMYCIN/WATER FOR INJ (PEG) 1,000 MG/200 ML BAG IVPB ONE (23:30)
[2024-02-15] MEDS: methaDONE HCL 40 MG DISPERSABLE TABLET PO PRN (02:18)
[2024-02-15 04:47] LABS: URINE AMPHETAMINES NEGATIVE (NEGATIVE); URINE BARBITURATES NEGATIVE (NEGATIVE)
[2024-02-15 04:48] LABS: PHENCYCLIDINE,URINE NEGATIVE (NEGATIVE); URINE BENZODIAZEPINES NEGATIVE (NEGATIVE)
[2024-02-15] MEDS ORDERED: methaDONE HCL 40 MG DISPERSABLE TABLET PO SCH (06:00)
[2024-02-15] MEDS: methaDONE 80 MG, methaDONE 10 MG PO SCH (06:04)
[2024-02-15 06:42] LABS: COCAINE, UR POSITIVE (NEGATIVE); METHADONE, UR POSITIVE (NEGATIVE); OPIATES, URI POSITIVE (NEGATIVE)
[2024-02-15] MEDS: INSULIN (NOVOLOG) ASPART 100 UNITS/ML 10ML VIAL SQ ONE (08:25)
[2024-02-15 08:54] LABS: BASO % 0.3 % (0-2.0); EOS % 0.5 % (0-4.5); HEMATOCRIT 21.6 % (35.4-49); LYMPH % 14.8 % (8-40); MCH 28.7 pg (25.7-33.7); MCHC 32.5 g/dl (32.0-35.9); MEAN CELL VOLUME 88.4 fl (80-96); MEAN PLT VOLUME 7.2 fl (7.5-11.1); MONO % 5.8 % (3.8-10.2); NEUT % 78.6 % (42.8-82.8); PLATELET COUNT 656 10^3/uL (134-434); RBC 2.44 M/mm3 (4.00-5.60); RDW 14.5 % (11.9-15.9); WHITE BLOOD COUNT 15.9 K/mm3 (4.0-10.0)
[2024-02-15 09:11] LABS: POTASSIUM 5.1 mmol/L (3.5-5.1)
[2024-02-15 09:19] LABS: CALCIUM 7.6 mg/dL (8.5-10.1)
[2024-02-15 09:20] LABS: BLOOD UREA NITROGEN 19.2 mg/dL (7-18); MAGNESIUM 1.8 mg/dL (1.8-2.4)
[2024-02-15 09:23] LABS: BILIRUBIN,TOTAL 0.5 mg/dL (0.2-1); CREATININE 0.8 mg/dL (0.55-1.3); PHOSPHOROUS 2.7 mg/dL (2.5-4.9)
[2024-02-15] MEDS ORDERED: BUPIVACAINE HCL/PF 0.5% (5MG/ML) 10 ML VIAL ONE (12:21)
[2024-02-15] MEDS ORDERED: ACETAMINOPHEN INJECTION 100 ML ONE (13:02)
[2024-02-15] MEDS ORDERED: DEXAMETHASONE SOD PHOSPHATE 10 MG/1 ML VIAL ONE (13:03)
[2024-02-15] MEDS ORDERED: DEXMEDETOMIDINE HCL 200 MCG/2 ML IVPB ONE (13:03)
[2024-02-15] MEDS ORDERED: PROPOFOL 40 ML ONE (13:09)
[2024-02-15] MEDS ORDERED: SUCCINYLCHOLINE CHLORIDE 200 MG/10 ML SYRINGE ONE (13:09)
[2024-02-15] MEDS ORDERED: MIDAZOLAM HCL 2 MG/2 ML SINGLE DOSE VIAL ONE (13:09)
[2024-02-15] MEDS ORDERED: KETOROLAC TROMETHAMINE 30 MG/1 ML VIAL ONE (13:18)
[2024-02-15] MEDS ORDERED: KETAMINE HCL 200 MG/20 ML VIAL ONE (13:19)
[2024-02-15] MEDS ORDERED: HYDROmorphone HCl 2 MG/ML VIAL ONE (13:37)
[2024-02-15] MEDS ORDERED: ONDANSETRON 4 MG/2 ML VIAL IVPUSH PRN (14:57)
[2024-02-15] MEDS ORDERED: LACTATED RINGERS SOLUTION 1,000 ML IV SCH (15:00)
[2024-02-15] MEDS: morphine SULFATE 4 MG/ML VIAL IVPUSH PRN (17:53)
[2024-02-15] MEDS: PIPERACILLIN/TAZOB 4.5 GM 4.5 GM in DEXTROSE 5%-WATER 100 ML IVPB SCH (17:54)
[2024-02-15] MEDS ORDERED: PIPERACILLIN/TAZOB 4.5 GM 4.5 GM in DEXTROSE 5%-WATER 100 ML IVPB SCH (18:00)
[2024-02-15] MEDS: INSULIN ASPART SLIDING SCALE (NOVOLOG) 1 VIAL SQ SCH (18:22)
[2024-02-15] MEDS: INSULIN (NOVOLOG) ASPART 100 UNITS/ML 10ML VIAL SQ STA (18:24)
[2024-02-15] MEDS: INSULIN (LEVEMIR) 100 UNITS/ML UNITS SQ STA (18:25)
[2024-02-15] MEDS: LACTATED RINGERS SOLUTION 1,000 ML/1,000 ML INFUS.BAG IV SCH (18:26)
[2024-02-15 18:44] LABS: BASO % 0.2 % (0-2.0); EOS % 0.2 % (0-4.5); HEMATOCRIT 22.1 % (35.4-49); HEMOGLOBIN 7.4 GM/dL (11.7-16.9); LYMPH % 8.8 % (8-40); MCH 30.1 pg (25.7-33.7); MCHC 33.3 g/dl (32.0-35.9); MEAN CELL VOLUME 90.3 fl (80-96); MEAN PLT VOLUME 7.4 fl (7.5-11.1); NEUT % 87.8 % (42.8-82.8); PLATELET COUNT 671 10^3/uL (134-434); RBC 2.45 M/mm3 (4.00-5.60); RDW 14.6 % (11.9-15.9); WHITE BLOOD COUNT 19.8 K/mm3 (4.0-10.0)
[2024-02-15 18:52] LABS: CHLORIDE 90 mmol/L (98-107); POTASSIUM 5.7 mmol/L (3.5-5.1); SODIUM 127 mmol/L (136-145)
[2024-02-15 18:54] LABS: ANION GAP 9 mmol/L (4-13); BLOOD UREA NITROGEN 19.5 mg/dL (7-18); CALCIUM 7.6 mg/dL (8.5-10.1); CO2 27 mmol/L (21-32)
[2024-02-15 18:59] LABS: GLUCOSE,RANDOM 431 mg/dL (74-106)
[2024-02-15] MEDS: ACETAMINOPHEN 325 MG TABLET (FP) PO PRN (20:29)
[2024-02-15] MEDS: VANCOMYCIN/WATER FOR INJ (PEG) 1,000 MG/200 ML BAG IVPB SCH ×2 (20:41→23:38)
[2024-02-15] MEDS ORDERED: HEPARIN NA (PORCINE) 5,000 UNITS/ML 1ML VIAL SQ SCH (22:00)
[2024-02-15] MEDS: ACETAMINOPHEN 325 MG TABLET (FP) PO ONE (23:36)
[2024-02-16] MEDS: methaDONE 80 MG, methaDONE 10 MG PO SCH (05:09)
[2024-02-16 08:30] LABS: HEMATOCRIT 21.5 % (35.4-49); HEMOGLOBIN 7.2 GM/dL (11.7-16.9); MCH 29.5 pg (25.7-33.7); MCHC 33.5 g/dl (32.0-35.9); MEAN PLT VOLUME 8.3 fl (7.5-11.1); PLATELET COUNT 514 10^3/uL (134-434); RBC 2.44 M/mm3 (4.00-5.60); RDW 15.4 % (11.9-15.9); WHITE BLOOD COUNT 22.1 K/mm3 (4.0-10.0)
[2024-02-16 08:51] LABS: POTASSIUM 4.6 mmol/L (3.5-5.1)
[2024-02-16 09:02] LABS: ALBUMIN 1.1 g/dl (3.4-5.0); BLOOD UREA NITROGEN 21.7 mg/dL (7-18)
[2024-02-16 09:03] LABS: CALCIUM 7.6 mg/dL (8.5-10.1)
[2024-02-16 09:04] LABS: BILIRUBIN,TOTAL 0.2 mg/dL (0.2-1)
[2024-02-16 09:05] LABS: TOT PROT 5.9 g/dl (6.4-8.2)
[2024-02-16] MEDS: NICOTINE 21 MG/24 HOURS TOPICAL PATCH TD SCH (09:18)
[2024-02-16 09:59] LABS: ANISOCYTOSIS 0; MACROCYTOSIS 0
[2024-02-16] MEDS ORDERED: INSULIN (LEVEMIR) 100 UNITS/ML UNITS SQ SCH ×2 (12:30→22:00)
[2024-02-16] MEDS: INSULIN (LEVEMIR) 100 UNITS/ML UNITS SQ SCH (14:56)
[2024-02-16] MEDS ORDERED: methaDONE HCL 40 MG DISPERSABLE TABLET PO SCH (16:05)
[2024-02-16] MEDS: cloNIDine HCL 0.1 MG TABLET PO PRN (16:14)
[2024-02-16] MEDS: SODIUM CHLORIDE 1,000 ML IV STA (16:30)
[2024-02-16] MEDS: methaDONE 80 MG, methaDONE 20 MG PO ONE (16:33)
[2024-02-16] MEDS: methaDONE HCL 40 MG DISPERSABLE TABLET PO ONE (17:02)
[2024-02-17] MEDS ORDERED: methaDONE HCL 10 MG TABLET PO SCH (06:00)
[2024-02-17 08:41] LABS: HEMATOCRIT 22.8 % (35.4-49); HEMOGLOBIN 7.6 GM/dL (11.7-16.9); MCH 29.7 pg (25.7-33.7); MCHC 33.4 g/dl (32.0-35.9); MEAN CELL VOLUME 88.7 fl (80-96); MEAN PLT VOLUME 7.1 fl (7.5-11.1); PLATELET COUNT 546 10^3/uL (134-434); RBC 2.57 M/mm3 (4.00-5.60); RDW 15.3 % (11.9-15.9)
[2024-02-17 08:48] LABS: WHITE BLOOD COUNT 31.6 K/mm3 (4.0-10.0)
[2024-02-17 08:52] LABS: POTASSIUM 4.2 mmol/L (3.5-5.1)
[2024-02-17 08:55] LABS: ALBUMIN 1.2 g/dl (3.4-5.0); BLOOD UREA NITROGEN 14.1 mg/dL (7-18); CALCIUM 7.3 mg/dL (8.5-10.1)
[2024-02-17 08:58] LABS: CREATININE 1.1 mg/dL (0.55-1.3)
[2024-02-17 09:02] LABS: BILIRUBIN,TOTAL 0.4 mg/dL (0.2-1)
[2024-02-17 10:07] LABS: ANISOCYTOSIS 0; MACROCYTOSIS 0
[2024-02-17 10:10] LABS: PLATELET ESTIMATE INCREASED
[2024-02-17] MEDS: VANCOMYCIN/WATER 1250 MG 1,250 MG/250 ML BAG IVPB SCH (14:39)
[2024-02-17] MEDS: DAPTOMYCIN 650 MG in SODIUM CHLORIDE 50 ML IVPB SCH (14:43)
[2024-02-17] MEDS ORDERED: INSULIN (LEVEMIR) 100 UNITS/ML UNITS SQ SCH ×2 (15:39→16:27)
[2024-02-17] MEDS: SODIUM CHLORIDE 1,000 ML IV SCH (18:57)
[2024-02-17] MEDS: INSULIN (LEVEMIR) 100 UNITS/ML UNITS SQ SCH (22:06)
[2024-02-17] MEDS: SENNOSIDES/DOCUSATE COMBO (SENNA PLUS) TABLET (UD) PO SCH (22:07)
[2024-02-18] MEDS ORDERED: ONDANSETRON 4 MG/2 ML VIAL ONE (07:42)
[2024-02-18] MEDS ORDERED: LIDOCAINE HCL/PF 2% SDV 5ML VIAL ONE (07:42)
[2024-02-18] MEDS ORDERED: DEXAMETHASONE SOD PHOSPHATE 4 MG/1 ML VIAL ONE (07:42)
[2024-02-18] MEDS ORDERED: SUCCINYLCHOLINE CHLORIDE 200 MG/10 ML SYRINGE ONE (07:46)
[2024-02-18] MEDS ORDERED: ACETAMINOPHEN INJECTION 100 ML ONE (07:49)
[2024-02-18] MEDS ORDERED: SODIUM CHLORIDE 1,000 ML IV SCH (08:15)
[2024-02-18] MEDS ORDERED: ONDANSETRON 4 MG/2 ML VIAL IVPUSH PRN ×2 (08:49→11:45)
[2024-02-18] MEDS ORDERED: LACTATED RINGERS SOLUTION 1,000 ML IV SCH (09:00)
[2024-02-18] MEDS ORDERED: MIDAZOLAM HCL 2 MG/2 ML SINGLE DOSE VIAL ONE (09:11)
[2024-02-18 09:36] LABS: INR 1.12 (0.83-1.09); PROTHROMBIN TIME (PATIENT) 12.6 SEC (9.7-13.0)
[2024-02-18 09:38] LABS: ACTIVATED PTT 27.5 SECONDS (25.2-36.5)
[2024-02-18] MEDS ORDERED: HYDROmorphone HCl 2 MG/ML VIAL ONE (09:41)
[2024-02-18 09:46] LABS: POTASSIUM 4.4 mmol/L (3.5-5.1)
[2024-02-18 09:48] LABS: CALCIUM 7.5 mg/dL (8.5-10.1)
[2024-02-18 09:49] LABS: ALBUMIN 1.1 g/dl (3.4-5.0); BLOOD UREA NITROGEN 14.8 mg/dL (7-18)
[2024-02-18 09:52] LABS: CREATININE 0.8 mg/dL (0.55-1.3)
[2024-02-18 09:54] LABS: BILIRUBIN,TOTAL 0.3 mg/dL (0.2-1); TOT PROT 5.8 g/dl (6.4-8.2)
[2024-02-18 10:05] LABS: HEMATOCRIT 20.1 % (35.4-49); MCH 28.8 pg (25.7-33.7); MCHC 32.4 g/dl (32.0-35.9); PLATELET COUNT 462 10^3/uL (134-434); RBC 2.26 M/mm3 (4.00-5.60); RDW 15.4 % (11.9-15.9); WHITE BLOOD COUNT 29.8 K/mm3 (4.0-10.0)
[2024-02-18 10:12] LABS: HEMOGLOBIN 6.5 GM/dL (11.7-16.9)
[2024-02-18 10:42] LABS: ANISOCYTOSIS 0; MACROCYTOSIS 0
[2024-02-18] MEDS ORDERED: cloNIDine HCL 0.1 MG TABLET PO PRN (11:45)
[2024-02-18] MEDS: LACTATED RINGERS SOLUTION 1,000 ML IV SCH (11:45)
[2024-02-18 12:20] LABS: HIV INTERPRETATION NEGATIVE (NEGATIVE)
[2024-02-18] MEDS: DAPTOMYCIN 650 MG in SODIUM CHLORIDE 50 ML IVPB SCH (13:52)
[2024-02-18] MEDS: INSULIN ASPART SLIDING SCALE (NOVOLOG) 1 VIAL SQ SCH (16:44)
[2024-02-18] MEDS: POLYETHYLENE GLYCOL (HEALTHYLAX) 3350 17 GM PACKET PO SCH (19:44)
[2024-02-18] MEDS: SENNOSIDES/DOCUSATE COMBO (SENNA PLUS) TABLET (UD) PO SCH (21:07)
[2024-02-18] MEDS: INSULIN (LEVEMIR) 100 UNITS/ML UNITS SQ SCH (21:12)
[2024-02-18 22:06] LABS: ANTIGLOMERULAR BASEMENT MEN.AB <0.2 units (0.0-0.9)
[2024-02-18 22:32] LABS: HEMATOCRIT 24.2 % (35.4-49); HEMOGLOBIN 7.5 GM/dL (11.7-16.9); MCHC 30.9 g/dl (32.0-35.9); MEAN CELL VOLUME 90.7 fl (80-96); MEAN PLT VOLUME 7.5 fl (7.5-11.1); PLATELET COUNT 499 10^3/uL (134-434); RBC 2.67 M/mm3 (4.00-5.60); RDW 18.3 % (11.9-15.9)
[2024-02-18 22:39] LABS: WHITE BLOOD COUNT 31.6 K/mm3 (4.0-10.0)
[2024-02-19] MEDS: ACETAMINOPHEN 325 MG TABLET (FP) PO PRN (02:59)
[2024-02-19 08:10] LABS: HEMATOCRIT 19.8 % (35.4-49); MCH 28.6 pg (25.7-33.7); MCHC 32.6 g/dl (32.0-35.9); MEAN CELL VOLUME 87.6 fl (80-96); PLATELET COUNT 501 10^3/uL (134-434); RBC 2.27 M/mm3 (4.00-5.60); RDW 17.5 % (11.9-15.9); WHITE BLOOD COUNT 25.6 K/mm3 (4.0-10.0)
[2024-02-19 08:33] LABS: POTASSIUM 4.6 mmol/L (3.5-5.1)
[2024-02-19 08:37] LABS: BLOOD UREA NITROGEN 18.2 mg/dL (7-18); CALCIUM 7.8 mg/dL (8.5-10.1)
[2024-02-19 08:41] LABS: CREATININE 0.9 mg/dL (0.55-1.3)
[2024-02-19 08:47] LABS: HEMOGLOBIN 6.5 GM/dL (11.7-16.9)
[2024-02-19 10:13] LABS: ANISOCYTOSIS 1+; MACROCYTOSIS 0
[2024-02-19 10:14] LABS: PLATELET ESTIMATE INCREASED
[2024-02-19] MEDS: POLYETHYLENE GLYCOL (HEALTHYLAX) 3350 17 GM PACKET PO SCH (10:53)
[2024-02-19] MEDS: NICOTINE 21 MG/24 HOURS TOPICAL PATCH TD SCH (10:54)
[2024-02-19] MEDS ORDERED: NICOTINE POLACRILEX 4 MG LOZENGE BC PRN ×2 (11:06→20:10)
[2024-02-19 16:09] LABS: C-ANCA <1:20 titer (Neg:<1:20)
[2024-02-19 18:33] LABS: HEMATOCRIT 19.1 % (35.4-49); MCH 28.9 pg (25.7-33.7); MCHC 32.5 g/dl (32.0-35.9); MEAN CELL VOLUME 88.8 fl (80-96); MEAN PLT VOLUME 6.9 fl (7.5-11.1); PLATELET COUNT 507 10^3/uL (134-434); RBC 2.16 M/mm3 (4.00-5.60); RDW 17.1 % (11.9-15.9); WHITE BLOOD COUNT 23.6 K/mm3 (4.0-10.0)
[2024-02-19 18:37] LABS: HEMOGLOBIN 6.2 GM/dL (11.7-16.9)
[2024-02-20] MEDS: NICOTINE POLACRILEX 4 MG GUM BUC PRN (05:28)
[2024-02-20] MEDS: INSULIN (NOVOLOG) ASPART 100 UNITS/ML 10ML VIAL SQ SCH ×3 (06:17→17:01)
[2024-02-20 12:00] LABS: HEMATOCRIT 23.3 % (35.4-49); HEMOGLOBIN 7.5 GM/dL (11.7-16.9); MCH 28.1 pg (25.7-33.7); MCHC 32.3 g/dl (32.0-35.9); MEAN CELL VOLUME 86.9 fl (80-96); MEAN PLT VOLUME 7.1 fl (7.5-11.1); PLATELET COUNT 532 10^3/uL (134-434); RBC 2.68 M/mm3 (4.00-5.60); RDW 15.9 % (11.9-15.9); WHITE BLOOD COUNT 25.9 K/mm3 (4.0-10.0)
[2024-02-20 12:20] LABS: CALCIUM 8.2 mg/dL (8.5-10.1); CHLORIDE 101 mmol/L (98-107); POTASSIUM 4.5 mmol/L (3.5-5.1); SODIUM 138 mmol/L (136-145)
[2024-02-20 12:21] LABS: ANION GAP 6 mmol/L (4-13); BLOOD UREA NITROGEN 13.2 mg/dL (7-18); CO2 32 mmol/L (21-32); MAGNESIUM 1.7 mg/dL (1.8-2.4)
[2024-02-20] MEDS: DEXTROSE 50%-WATER - 25 GM/50 ML VIAL IVPB ONE (12:22)
[2024-02-20 12:24] LABS: CREATININE 0.6 mg/dL (0.55-1.3); PHOSPHOROUS 3.2 mg/dL (2.5-4.9)
[2024-02-20 12:31] LABS: GLUCOSE,RANDOM 43 mg/dL (74-106)
[2024-02-20] MEDS: INSULIN (LEVEMIR) 100 UNITS/ML UNITS SQ SCH (21:02)
[2024-02-21 08:20] LABS: HEMATOCRIT 24.6 % (35.4-49); MCH 29.1 pg (25.7-33.7); MCHC 32.7 g/dl (32.0-35.9); MEAN PLT VOLUME 7.4 fl (7.5-11.1); PLATELET COUNT 483 10^3/uL (134-434); RBC 2.77 M/mm3 (4.00-5.60); RDW 15.3 % (11.9-15.9); WHITE BLOOD COUNT 19.8 K/mm3 (4.0-10.0)
[2024-02-21 08:31] LABS: POTASSIUM 4.6 mmol/L (3.5-5.1)
[2024-02-21 08:33] LABS: BLOOD UREA NITROGEN 14.5 mg/dL (7-18); CALCIUM 7.6 mg/dL (8.5-10.1); MAGNESIUM 1.6 mg/dL (1.8-2.4)
[2024-02-21 08:37] LABS: CREATININE 0.8 mg/dL (0.55-1.3); PHOSPHOROUS 4.3 mg/dL (2.5-4.9)
[2024-02-21] MEDS: MAGNESIUM 1GM/D5W 100ML - 100 ML IVPB IVPB ONE (16:45)
[2024-02-21] MEDS: SENNOSIDES 8.8 MG/5 ML SYRUP PO SCH (21:37)
[2024-02-22] MEDS ORDERED: methaDONE HCL 40 MG DISPERSABLE TABLET PO ONE (06:00)
[2024-02-22] MEDS: INSULIN (LEVEMIR) 100 UNITS/ML UNITS SQ SCH ×2 (07:00→21:52)
[2024-02-22 10:52] LABS: HEMATOCRIT 25.2 % (35.4-49); HEMATOCRIT 26.1 % (35.4-49); HEMOGLOBIN 8.4 GM/dL (11.7-16.9); HEMOGLOBIN 8.5 GM/dL (11.7-16.9); MCH 29.3 pg (25.7-33.7); MCH 29.9 pg (25.7-33.7); MCHC 32.7 g/dl (32.0-35.9); MCHC 33.5 g/dl (32.0-35.9); MEAN CELL VOLUME 89.5 fl (80-96); MEAN PLT VOLUME 7.3 fl (7.5-11.1); PLATELET COUNT 560 10^3/uL (134-434); PLATELET COUNT 573 10^3/uL (134-434); RBC 2.81 M/mm3 (4.00-5.60); RBC 2.92 M/mm3 (4.00-5.60); RDW 15.3 % (11.9-15.9); RDW 15.4 % (11.9-15.9); WHITE BLOOD COUNT 22.3 K/mm3 (4.0-10.0)
[2024-02-22 11:20] LABS: POTASSIUM 4.5 mmol/L (3.5-5.1)
[2024-02-22 11:23] LABS: CALCIUM 8.4 mg/dL (8.5-10.1)
[2024-02-22 11:24] LABS: BLOOD UREA NITROGEN 13.8 mg/dL (7-18)
[2024-02-22 11:27] LABS: CREATININE 0.7 mg/dL (0.55-1.3)
[2024-02-22 11:58] LABS: ANISOCYTOSIS 0; MACROCYTOSIS 0
[2024-02-22] MEDS: ENOXAPARIN NA (PORCINE) 40 MG/0.4 ML DISP.SYRIN SQ SCH (17:11)
[2024-02-22] MEDS: AMINO ACIDS/PROTEIN HYDROLYS 30 ML LIQUID.PKT PO SCH (17:11)
[2024-02-23 08:13] LABS: BASO % 0.9 % (0-2.0); EOS % 1.1 % (0-4.5); HEMOGLOBIN 7.7 GM/dL (11.7-16.9); MCH 29.8 pg (25.7-33.7); MCHC 33.4 g/dl (32.0-35.9); MEAN CELL VOLUME 89.1 fl (80-96); MEAN PLT VOLUME 7.2 fl (7.5-11.1); MONO % 5.4 % (3.8-10.2); NEUT % 79.6 % (42.8-82.8); PLATELET COUNT 521 10^3/uL (134-434); RBC 2.58 M/mm3 (4.00-5.60); RDW 15.8 % (11.9-15.9); WHITE BLOOD COUNT 16.2 K/mm3 (4.0-10.0)
[2024-02-23 08:38] LABS: POTASSIUM 4.3 mmol/L (3.5-5.1)
[2024-02-23 08:40] LABS: BLOOD UREA NITROGEN 15.8 mg/dL (7-18); MAGNESIUM 1.9 mg/dL (1.8-2.4)
[2024-02-23 08:43] LABS: CREATININE 0.8 mg/dL (0.55-1.3)
[2024-02-23] MEDS: MULTIVITAMINS (DAILY MVI) TABLET (FP) PO SCH (09:47)
[2024-02-23] MEDS ORDERED: methaDONE HCL 40 MG DISPERSABLE TABLET PO SCH (10:00)
[2024-02-24 08:30] LABS: BASO % 0.8 % (0-2.0); EOS % 0.8 % (0-4.5); HEMATOCRIT 24.2 % (35.4-49); HEMOGLOBIN 8.1 GM/dL (11.7-16.9); LYMPH % 13.4 % (8-40); MCHC 33.6 g/dl (32.0-35.9); MEAN CELL VOLUME 89.2 fl (80-96); MEAN PLT VOLUME 7.6 fl (7.5-11.1); MONO % 4.9 % (3.8-10.2); NEUT % 80.1 % (42.8-82.8); PLATELET COUNT 545 10^3/uL (134-434); RBC 2.71 M/mm3 (4.00-5.60); RDW 15.9 % (11.9-15.9); WHITE BLOOD COUNT 11.3 K/mm3 (4.0-10.0)
[2024-02-24 08:58] LABS: CHLORIDE 97 mmol/L (98-107); POTASSIUM 4.6 mmol/L (3.5-5.1); SODIUM 131 mmol/L (136-145)
[2024-02-24 09:10] LABS: ALBUMIN 1.2 g/dl (3.4-5.0); ANION GAP 6 mmol/L (4-13); BLOOD UREA NITROGEN 21.8 mg/dL (7-18); CO2 29 mmol/L (21-32); SGPT/ALT 62 U/L (13-61)
[2024-02-24 09:11] LABS: GLUCOSE,RANDOM 411 mg/dL (74-106); SGOT/AST 104 U/L (15-37)
[2024-02-24 09:12] LABS: BILIRUBIN,TOTAL 0.2 mg/dL (0.2-1); TOT PROT 6.5 g/dl (6.4-8.2)
[2024-02-24 09:17] LABS: ALK PHOS 183 U/L (45-117)
[2024-02-25 08:38] LABS: EOS % 1.1 % (0-4.5); HEMATOCRIT 22.9 % (35.4-49); HEMOGLOBIN 7.7 GM/dL (11.7-16.9); LYMPH % 15.6 % (8-40); MCH 30.4 pg (25.7-33.7); MCHC 33.7 g/dl (32.0-35.9); MEAN CELL VOLUME 90.1 fl (80-96); MEAN PLT VOLUME 7.8 fl (7.5-11.1); MONO % 5.8 % (3.8-10.2); NEUT % 76.5 % (42.8-82.8); PLATELET COUNT 556 10^3/uL (134-434); RBC 2.54 M/mm3 (4.00-5.60); WHITE BLOOD COUNT 9.1 K/mm3 (4.0-10.0)
[2024-02-25 08:50] LABS: POTASSIUM 4.5 mmol/L (3.5-5.1)
[2024-02-25 08:55] LABS: CALCIUM 8.3 mg/dL (8.5-10.1)
[2024-02-25 08:56] LABS: ALBUMIN 1.2 g/dl (3.4-5.0); BLOOD UREA NITROGEN 20.9 mg/dL (7-18)
[2024-02-25 08:59] LABS: CREATININE 0.8 mg/dL (0.55-1.3)
[2024-02-25 09:00] LABS: BILIRUBIN,TOTAL 0.6 mg/dL (0.2-1)
[2024-02-25 09:01] LABS: TOT PROT 6.8 g/dl (6.4-8.2)
[2024-02-25] MEDS: INSULIN (NOVOLOG) ASPART 100 UNITS/ML 10ML VIAL SQ SCH (18:03)
[2024-02-25] MEDS: KETOROLAC TROMETHAMINE 15 MG/ML VIAL IVPUSH PRN (21:39)
[2024-02-25] MEDS: MELATONIN 5 MG TABLETS PO PRN (21:40)
[2024-02-26 10:29] LABS: BASO % 0.7 % (0-2.0); EOS % 1.2 % (0-4.5); HEMATOCRIT 23.8 % (35.4-49); HEMOGLOBIN 7.9 GM/dL (11.7-16.9); LYMPH % 22.6 % (8-40); MCH 29.7 pg (25.7-33.7); MCHC 33.1 g/dl (32.0-35.9); MEAN CELL VOLUME 89.7 fl (80-96); MEAN PLT VOLUME 7.9 fl (7.5-11.1); MONO % 5.8 % (3.8-10.2); NEUT % 69.7 % (42.8-82.8); PLATELET COUNT 521 10^3/uL (134-434); RBC 2.65 M/mm3 (4.00-5.60); RDW 16.1 % (11.9-15.9); WHITE BLOOD COUNT 7.4 K/mm3 (4.0-10.0)
[2024-02-26 10:39] LABS: POTASSIUM 4.3 mmol/L (3.5-5.1)
[2024-02-26 10:47] LABS: ALBUMIN 1.2 g/dl (3.4-5.0); BLOOD UREA NITROGEN 23.5 mg/dL (7-18); CALCIUM 8.1 mg/dL (8.5-10.1)
[2024-02-26 10:48] LABS: MAGNESIUM 2.2 mg/dL (1.8-2.4)
[2024-02-26 10:51] LABS: BILIRUBIN,TOTAL 0.9 mg/dL (0.2-1); CREATININE 0.7 mg/dL (0.55-1.3)
[2024-02-26 10:52] LABS: TOT PROT 6.9 g/dl (6.4-8.2)
[2024-02-26] MEDS: FUROSEMIDE 40 MG/4 ML INJECTABLE VIAL IVPUSH ONE (11:42)
[2024-02-26] MEDS: ALBUMIN HUMAN 25% 100 ML VIAL IV ONE (12:20)
[2024-02-26 12:24] VITALS: BMI 23.6
[2024-02-27 08:29] LABS: BASO % 1.3 % (0-2.0); EOS % 1.6 % (0-4.5); HEMATOCRIT 23.6 % (35.4-49); HEMOGLOBIN 7.8 GM/dL (11.7-16.9); LYMPH % 23.9 % (8-40); MCH 29.4 pg (25.7-33.7); MCHC 32.8 g/dl (32.0-35.9); MEAN CELL VOLUME 89.6 fl (80-96); MEAN PLT VOLUME 8.3 fl (7.5-11.1); MONO % 5.2 % (3.8-10.2); PLATELET COUNT 487 10^3/uL (134-434); RBC 2.64 M/mm3 (4.00-5.60); RDW 16.5 % (11.9-15.9); WHITE BLOOD COUNT 9.9 K/mm3 (4.0-10.0)
[2024-02-27 08:54] LABS: POTASSIUM 4.2 mmol/L (3.5-5.1)
[2024-02-27 09:00] LABS: BLOOD UREA NITROGEN 22.8 mg/dL (7-18); CALCIUM 8.2 mg/dL (8.5-10.1)
[2024-02-27 09:01] LABS: ALBUMIN 1.4 g/dl (3.4-5.0)
[2024-02-27 09:03] LABS: CREATININE 0.7 mg/dL (0.55-1.3)
[2024-02-27 09:04] LABS: TOT PROT 7.2 g/dl (6.4-8.2)
[2024-02-27] MEDS: FUROSEMIDE 40 MG/4 ML INJECTABLE VIAL IVPUSH ONE (11:31)
[2024-02-27] MEDS: ALBUMIN HUMAN 25% 12.5 GM/50 ML VIAL IV ONE (11:33)
[2024-02-28 07:21] LABS: WHITE BLOOD COUNT 9.5 K/mm3 (4.0-10.0)
[2024-02-28 07:22] LABS: HEMATOCRIT 25.4 % (35.4-49); HEMOGLOBIN 8.1 GM/dL (11.7-16.9); MCHC 31.9 g/dl (32.0-35.9); MEAN CELL VOLUME 90.9 fl (80-96); PLATELET COUNT 527 10^3/uL (134-434); RBC 2.79 M/mm3 (4.00-5.60); RDW 16.8 % (11.9-15.9)
[2024-02-28 07:26] LABS: POTASSIUM 3.9 mmol/L (3.5-5.1)
[2024-02-28 07:28] LABS: CALCIUM 7.9 mg/dL (8.5-10.1)
[2024-02-28 07:29] LABS: ALBUMIN 1.4 g/dl (3.4-5.0); BLOOD UREA NITROGEN 23.7 mg/dL (7-18)
[2024-02-28 07:32] LABS: CREATININE 0.7 mg/dL (0.55-1.3)
[2024-02-28 07:33] LABS: BILIRUBIN,TOTAL 0.7 mg/dL (0.2-1); TOT PROT 6.8 g/dl (6.4-8.2)
[2024-02-29 09:55] LABS: BASO % 1.7 % (0-2.0); EOS % 0.6 % (0-4.5); HEMATOCRIT 23.9 % (35.4-49); HEMOGLOBIN 7.6 GM/dL (11.7-16.9); LYMPH % 22.3 % (8-40); MCH 29.1 pg (25.7-33.7); MEAN CELL VOLUME 90.9 fl (80-96); MEAN PLT VOLUME 8.6 fl (7.5-11.1); MONO % 5.2 % (3.8-10.2); NEUT % 70.2 % (42.8-82.8); PLATELET COUNT 590 10^3/uL (134-434); RBC 2.63 M/mm3 (4.00-5.60); RDW 17.1 % (11.9-15.9); WHITE BLOOD COUNT 11.6 K/mm3 (4.0-10.0)
[2024-02-29 10:13] LABS: POTASSIUM 4.7 mmol/L (3.5-5.1)
[2024-02-29 10:26] LABS: CALCIUM 8.2 mg/dL (8.5-10.1)
[2024-02-29 10:27] LABS: ALBUMIN 1.5 g/dl (3.4-5.0); BLOOD UREA NITROGEN 21.9 mg/dL (7-18)
[2024-02-29 10:30] LABS: CREATININE 0.9 mg/dL (0.55-1.3)
[2024-02-29 10:31] LABS: BILIRUBIN,TOTAL 0.6 mg/dL (0.2-1); TOT PROT 7.2 g/dl (6.4-8.2)
[2024-02-29] MEDS: FUROSEMIDE 40 MG TABLET (FP) PO ONE (14:27)
[2024-03-01] MEDS ORDERED: methaDONE HCL 40 MG DISPERSABLE TABLET PO ONE (06:02)
[2024-03-02] MEDS ORDERED: methaDONE HCL 40 MG DISPERSABLE TABLET PO SCH (06:00)
[2024-03-02 08:16] LABS: EOS % 2.7 % (0-4.5); HEMATOCRIT 21.5 % (35.4-49); HEMOGLOBIN 7.2 GM/dL (11.7-16.9); LYMPH % 22.6 % (8-40); MCH 30.6 pg (25.7-33.7); MCHC 33.6 g/dl (32.0-35.9); MEAN CELL VOLUME 90.8 fl (80-96); MONO % 5.8 % (3.8-10.2); NEUT % 67.9 % (42.8-82.8); PLATELET COUNT 579 10^3/uL (134-434); RBC 2.37 M/mm3 (4.00-5.60); RDW 17.8 % (11.9-15.9); WHITE BLOOD COUNT 10.4 K/mm3 (4.0-10.0)
[2024-03-02 08:24] LABS: POTASSIUM 4.2 mmol/L (3.5-5.1)
[2024-03-02 08:33] LABS: ALBUMIN 1.3 g/dl (3.4-5.0); CALCIUM 8.2 mg/dL (8.5-10.1)
[2024-03-02 08:34] LABS: BLOOD UREA NITROGEN 23.4 mg/dL (7-18)
[2024-03-02 08:37] LABS: BILIRUBIN,TOTAL 0.4 mg/dL (0.2-1); CREATININE 0.7 mg/dL (0.55-1.3); TOT PROT 6.7 g/dl (6.4-8.2)
[2024-03-03 11:40] LABS: POTASSIUM 4.7 mmol/L (3.5-5.1)
[2024-03-03 11:43] LABS: BLOOD UREA NITROGEN 20.2 mg/dL (7-18); CALCIUM 8.1 mg/dL (8.5-10.1)
[2024-03-03 11:44] LABS: ALBUMIN 1.4 g/dl (3.4-5.0)
[2024-03-03 11:46] LABS: CREATININE 0.8 mg/dL (0.55-1.3)
[2024-03-03 11:48] LABS: BILIRUBIN,TOTAL 0.3 mg/dL (0.2-1); TOT PROT 7.1 g/dl (6.4-8.2)
[2024-03-04 10:24] LABS: BASO % 1.3 % (0-2.0); EOS % 2.2 % (0-4.5); HEMATOCRIT 22.5 % (35.4-49); HEMOGLOBIN 7.3 GM/dL (11.7-16.9); LYMPH % 25.5 % (8-40); MCH 29.9 pg (25.7-33.7); MCHC 32.5 g/dl (32.0-35.9); MEAN CELL VOLUME 91.8 fl (80-96); MEAN PLT VOLUME 7.8 fl (7.5-11.1); MONO % 5.2 % (3.8-10.2); NEUT % 65.8 % (42.8-82.8); PLATELET COUNT 619 10^3/uL (134-434); RBC 2.45 M/mm3 (4.00-5.60); WHITE BLOOD COUNT 10.3 K/mm3 (4.0-10.0)
[2024-03-04 11:01] LABS: POTASSIUM 4.8 mmol/L (3.5-5.1)
[2024-03-04 11:14] LABS: ALBUMIN 1.4 g/dl (3.4-5.0); CALCIUM 8.1 mg/dL (8.5-10.1)
[2024-03-04 11:16] LABS: BLOOD UREA NITROGEN 18.2 mg/dL (7-18)
[2024-03-04 11:17] LABS: CREATININE 0.7 mg/dL (0.55-1.3)
[2024-03-04 11:19] LABS: BILIRUBIN,TOTAL 0.4 mg/dL (0.2-1); TOT PROT 7.3 g/dl (6.4-8.2)
[2024-03-04] MEDS ORDERED: FUROSEMIDE 40 MG TABLET (FP) PO ONE (12:45)
[2024-03-04] MEDS: FUROSEMIDE 40 MG TABLET (FP) PO ONE (16:26)
[2024-03-05 08:56] LABS: POTASSIUM 4.4 mmol/L (3.5-5.1)
[2024-03-05 09:01] LABS: BLOOD UREA NITROGEN 18.9 mg/dL (7-18); CALCIUM 8.1 mg/dL (8.5-10.1)
[2024-03-05 09:02] LABS: ALBUMIN 1.4 g/dl (3.4-5.0)
[2024-03-05 09:04] LABS: CREATININE 0.7 mg/dL (0.55-1.3)
[2024-03-05 09:06] LABS: BILIRUBIN,TOTAL 0.3 mg/dL (0.2-1)
[2024-03-06 09:15] LABS: BASO % 0.7 % (0-2.0); EOS % 1.7 % (0-4.5); HEMATOCRIT 22.1 % (35.4-49); HEMOGLOBIN 7.5 GM/dL (11.7-16.9); LYMPH % 21.4 % (8-40); MCH 30.4 pg (25.7-33.7); MCHC 33.8 g/dl (32.0-35.9); MEAN CELL VOLUME 90.2 fl (80-96); MEAN PLT VOLUME 7.5 fl (7.5-11.1); MONO % 6.9 % (3.8-10.2); NEUT % 69.3 % (42.8-82.8); PLATELET COUNT 547 10^3/uL (134-434); RBC 2.45 M/mm3 (4.00-5.60); WHITE BLOOD COUNT 10.2 K/mm3 (4.0-10.0)
[2024-03-06] MEDS: ACETAMINOPHEN 325 MG TABLET (FP) PO PRN (09:27)
[2024-03-06 09:37] LABS: POTASSIUM 4.4 mmol/L (3.5-5.1)
[2024-03-06 09:42] LABS: ALBUMIN 1.4 g/dl (3.4-5.0); BLOOD UREA NITROGEN 21.8 mg/dL (7-18); CALCIUM 8.2 mg/dL (8.5-10.1)
[2024-03-06 09:43] LABS: CREATININE 0.8 mg/dL (0.55-1.3)
[2024-03-06 09:46] LABS: PHOSPHOROUS 4.7 mg/dL (2.5-4.9)
[2024-03-06 09:47] LABS: BILIRUBIN,TOTAL 0.3 mg/dL (0.2-1); TOT PROT 7.1 g/dl (6.4-8.2)
[2024-03-06] MEDS: PANTOPRAZOLE 40 MG TABLET PO SCH (12:48)
[2024-03-07] MEDS: POTASSIUM CHLORIDE ORAL LIQUID 20 MEQ/15 ML PO ONE (15:10)
[2024-03-07] MEDS: FUROSEMIDE 40 MG TABLET (FP) PO ONE (15:10)
[2024-03-07] MEDS: CLINDAMYCIN 600MG PREMIX IVPB 600 MG/50 ML BAG IVPB ONE (16:39)
[2024-03-07] MEDS: MELATONIN 5 MG TABLETS PO PRN (21:37)
[2024-03-08 08:30] LABS: BASO % 0.8 % (0-2.0); EOS % 2.2 % (0-4.5); HEMATOCRIT 21.8 % (35.4-49); HEMOGLOBIN 7.1 GM/dL (11.7-16.9); LYMPH % 23.8 % (8-40); MCH 29.9 pg (25.7-33.7); MCHC 32.7 g/dl (32.0-35.9); MEAN CELL VOLUME 91.4 fl (80-96); MEAN PLT VOLUME 7.7 fl (7.5-11.1); MONO % 6.5 % (3.8-10.2); NEUT % 66.7 % (42.8-82.8); PLATELET COUNT 447 10^3/uL (134-434); RBC 2.38 M/mm3 (4.00-5.60); RDW 16.9 % (11.9-15.9)
[2024-03-08 08:37] LABS: POTASSIUM 4.2 mmol/L (3.5-5.1)
[2024-03-08 08:40] LABS: CALCIUM 8.3 mg/dL (8.5-10.1)
[2024-03-08 08:41] LABS: ALBUMIN 1.4 g/dl (3.4-5.0); BLOOD UREA NITROGEN 26.5 mg/dL (7-18)
[2024-03-08 08:44] LABS: CREATININE 0.8 mg/dL (0.55-1.3)
[2024-03-08 08:46] LABS: BILIRUBIN,TOTAL 0.3 mg/dL (0.2-1)
[2024-03-08 08:50] LABS: TOT PROT 6.7 g/dl (6.4-8.2)
[2024-03-09] MEDS ORDERED: methaDONE HCL 40 MG DISPERSABLE TABLET PO ONE (05:41)
[2024-03-09 07:16] LABS: EOS % 2.4 % (0-4.5); HEMATOCRIT 24.2 % (35.4-49); HEMOGLOBIN 7.9 GM/dL (11.7-16.9); LYMPH % 27.7 % (8-40); MCH 29.9 pg (25.7-33.7); MCHC 32.7 g/dl (32.0-35.9); MEAN CELL VOLUME 91.5 fl (80-96); MEAN PLT VOLUME 7.8 fl (7.5-11.1); NEUT % 61.9 % (42.8-82.8); PLATELET COUNT 406 10^3/uL (134-434); RBC 2.65 M/mm3 (4.00-5.60); RDW 16.8 % (11.9-15.9); WHITE BLOOD COUNT 8.6 K/mm3 (4.0-10.0)
[2024-03-09 07:49] LABS: POTASSIUM 4.5 mmol/L (3.5-5.1)
[2024-03-09 07:51] LABS: ALBUMIN 1.4 g/dl (3.4-5.0); BLOOD UREA NITROGEN 24.7 mg/dL (7-18)
[2024-03-09 07:54] LABS: CREATININE 0.9 mg/dL (0.55-1.3)
[2024-03-09 07:56] LABS: BILIRUBIN,TOTAL 0.2 mg/dL (0.2-1)
[2024-03-10] MEDS: LIDOCAINE HCL 1%, 10 MG/ML (20ML VIAL) NR ONE
[2024-03-10] MEDS: BUPIVACAINE HCL/PF 0.5% (5MG/ML) 10 ML VIAL IJ ONE
[2024-03-10 09:03] LABS: BASO % 0.8 % (0-2.0); EOS % 1.8 % (0-4.5); HEMATOCRIT 26.6 % (35.4-49); HEMOGLOBIN 8.6 GM/dL (11.7-16.9); MCH 29.5 pg (25.7-33.7); MCHC 32.4 g/dl (32.0-35.9); MEAN PLT VOLUME 7.7 fl (7.5-11.1); MONO % 5.5 % (3.8-10.2); NEUT % 67.9 % (42.8-82.8); PLATELET COUNT 457 10^3/uL (134-434); RBC 2.93 M/mm3 (4.00-5.60); RDW 16.2 % (11.9-15.9)
[2024-03-10 09:21] LABS: POTASSIUM 4.3 mmol/L (3.5-5.1)
[2024-03-10 09:25] LABS: CALCIUM 8.4 mg/dL (8.5-10.1)
[2024-03-10 09:26] LABS: ALBUMIN 1.6 g/dl (3.4-5.0); BLOOD UREA NITROGEN 21.8 mg/dL (7-18)
[2024-03-10 09:29] LABS: CREATININE 0.9 mg/dL (0.55-1.3)
[2024-03-10 09:30] LABS: BILIRUBIN,TOTAL 0.3 mg/dL (0.2-1)
[2024-03-10 09:31] LABS: TOT PROT 7.7 g/dl (6.4-8.2)
[2024-03-10 10:16] LABS: INR 1.03 (0.83-1.09); PROTHROMBIN TIME (PATIENT) 11.8 SEC (9.7-13.0)
[2024-03-10 10:19] LABS: ACTIVATED PTT 34.3 SECONDS (25.2-36.5)
[2024-03-10] MEDS ORDERED: GENTAMICIN SO4 80 MG/2 ML VIAL ONE (11:16)
[2024-03-10] MEDS ORDERED: BUPIVACAINE HCL/PF 0.5% (5MG/ML) 10 ML VIAL ONE (11:16)
[2024-03-10] MEDS ORDERED: LIDOCAINE HCL 1%, 10 MG/ML (20ML VIAL) ONE (11:16)
[2024-03-10] MEDS ORDERED: ONDANSETRON 4 MG/2 ML VIAL IVPUSH PRN ×2 (11:20→13:42)
[2024-03-10] MEDS ORDERED: PROPOFOL 20 ML ONE (11:27)
[2024-03-10] MEDS ORDERED: MIDAZOLAM HCL 2 MG/2 ML SINGLE DOSE VIAL ONE ×2 (11:28→12:51)
[2024-03-10] MEDS ORDERED: LACTATED RINGERS SOLUTION 1,000 ML IV SCH (11:30)
[2024-03-10] MEDS ORDERED: ONDANSETRON 4 MG/2 ML VIAL ONE (12:30)
[2024-03-10] MEDS ORDERED: DEXAMETHASONE SOD PHOSPHATE 4 MG/1 ML VIAL ONE (12:30)
[2024-03-10] MEDS ORDERED: methaDONE 80 MG, methaDONE 10 MG PO ONE (13:33)
[2024-03-10] MEDS: LACTATED RINGERS SOLUTION 1,000 ML IV SCH (14:25)
[2024-03-10] MEDS: ACETAMINOPHEN 325 MG TABLET (FP) PO PRN (16:41)
[2024-03-10] MEDS: methaDONE 80 MG, methaDONE 10 MG PO ONE (16:54)
[2024-03-10] MEDS: INSULIN ASPART SLIDING SCALE (NOVOLOG) 1 VIAL SQ SCH (17:25)
[2024-03-10] MEDS: INSULIN (NOVOLOG) ASPART 100 UNITS/ML 10ML VIAL SQ SCH (17:25)
[2024-03-10] MEDS: AMINO ACIDS/PROTEIN HYDROLYS 30 ML LIQUID.PKT PO SCH (17:31)
[2024-03-10] MEDS: INSULIN (LEVEMIR) 100 UNITS/ML UNITS SQ ONE ×2 (18:07→21:56)
[2024-03-10] MEDS: INSULIN (NOVOLOG) ASPART 100 UNITS/ML 10ML VIAL SQ ONE (19:55)
[2024-03-10] MEDS: MELATONIN 5 MG TABLETS PO PRN (21:55)
[2024-03-10] MEDS ORDERED: INSULIN (LEVEMIR) 100 UNITS/ML UNITS SQ SCH (22:00)
[2024-03-10] MEDS: NICOTINE POLACRILEX 4 MG GUM BUC PRN (22:19)
[2024-03-11] MEDS: INSULIN (LEVEMIR) 100 UNITS/ML UNITS SQ SCH ×2 (06:23→22:39)
[2024-03-11 09:08] LABS: BASO % 0.8 % (0-2.0); EOS % 0.5 % (0-4.5); HEMATOCRIT 23.4 % (35.4-49); HEMOGLOBIN 7.7 GM/dL (11.7-16.9); LYMPH % 21.7 % (8-40); MCH 29.8 pg (25.7-33.7); MCHC 32.9 g/dl (32.0-35.9); MEAN CELL VOLUME 90.4 fl (80-96); MEAN PLT VOLUME 7.7 fl (7.5-11.1); MONO % 5.5 % (3.8-10.2); NEUT % 71.5 % (42.8-82.8); PLATELET COUNT 433 10^3/uL (134-434); RBC 2.58 M/mm3 (4.00-5.60); RDW 16.3 % (11.9-15.9); WHITE BLOOD COUNT 13.4 K/mm3 (4.0-10.0)
[2024-03-11 09:13] LABS: POTASSIUM 4.3 mmol/L (3.5-5.1)
[2024-03-11 09:18] LABS: CALCIUM 8.2 mg/dL (8.5-10.1)
[2024-03-11 09:19] LABS: ALBUMIN 1.4 g/dl (3.4-5.0); BLOOD UREA NITROGEN 31.6 mg/dL (7-18); MAGNESIUM 1.9 mg/dL (1.8-2.4)
[2024-03-11 09:22] LABS: CREATININE 0.9 mg/dL (0.55-1.3)
[2024-03-11 09:23] LABS: BILIRUBIN,TOTAL 0.5 mg/dL (0.2-1); TOT PROT 6.8 g/dl (6.4-8.2)
[2024-03-11] MEDS ORDERED: methaDONE HCL 40 MG DISPERSABLE TABLET PO SCH (10:00)
[2024-03-11] MEDS: PANTOPRAZOLE 40 MG TABLET PO SCH (10:56)
[2024-03-11] MEDS: MULTIVITAMINS (DAILY MVI) TABLET (FP) PO SCH (10:56)
[2024-03-11] MEDS: POLYETHYLENE GLYCOL (HEALTHYLAX) 3350 17 GM PACKET PO SCH (10:57)
[2024-03-11] MEDS: NICOTINE 21 MG/24 HOURS TOPICAL PATCH TD SCH (10:58)
[2024-03-11] MEDS: DAPTOMYCIN 650 MG in SODIUM CHLORIDE 50 ML IVPB SCH (12:51)
[2024-03-11] MEDS: KETOROLAC TROMETHAMINE 30 MG/1 ML VIAL IVPUSH PRN (17:10)
[2024-03-11] MEDS ORDERED: INSULIN (LEVEMIR) 100 UNITS/ML UNITS SQ SCH ×2 (22:00→23:11)
[2024-03-11] MEDS: SENNOSIDES 8.8 MG/5 ML SYRUP PO SCH (22:00)
[2024-03-12 00:22] LABS: HEMATOCRIT 18.3 % (35.4-49); MCH 29.5 pg (25.7-33.7); MCHC 32.6 g/dl (32.0-35.9); MEAN CELL VOLUME 90.5 fl (80-96); MEAN PLT VOLUME 7.3 fl (7.5-11.1); PLATELET COUNT 411 10^3/uL (134-434); RBC 2.03 M/mm3 (4.00-5.60); RDW 16.2 % (11.9-15.9); WHITE BLOOD COUNT 12.7 K/mm3 (4.0-10.0)
[2024-03-12] MEDS: ACETAMINOPHEN 325 MG TABLET (FP) PO PRN ×2 (02:00→21:53)
[2024-03-12 08:39] LABS: BASO % 0.4 % (0-2.0); EOS % 0.2 % (0-4.5); HEMATOCRIT 15.8 % (35.4-49); LYMPH % 14.2 % (8-40); MCH 29.5 pg (25.7-33.7); MEAN CELL VOLUME 89.5 fl (80-96); MEAN PLT VOLUME 7.7 fl (7.5-11.1); MONO % 4.6 % (3.8-10.2); NEUT % 80.6 % (42.8-82.8); PLATELET COUNT 331 10^3/uL (134-434); RBC 1.76 M/mm3 (4.00-5.60); RDW 15.5 % (11.9-15.9); WHITE BLOOD COUNT 13.7 K/mm3 (4.0-10.0)
[2024-03-12 08:56] LABS: HEMOGLOBIN 5.2 GM/dL (11.7-16.9)
[2024-03-12 08:59] LABS: POTASSIUM 4.3 mmol/L (3.5-5.1)
[2024-03-12 09:02] LABS: ALBUMIN 1.2 g/dl (3.4-5.0); BLOOD UREA NITROGEN 33.1 mg/dL (7-18); MAGNESIUM 1.8 mg/dL (1.8-2.4)
[2024-03-12 09:03] LABS: CALCIUM 7.2 mg/dL (8.5-10.1)
[2024-03-12 09:05] LABS: PHOSPHOROUS 4.9 mg/dL (2.5-4.9)
[2024-03-12 09:07] LABS: BILIRUBIN,TOTAL 0.4 mg/dL (0.2-1); TOT PROT 5.2 g/dl (6.4-8.2)
[2024-03-12] MEDS: SODIUM CHLORIDE 1,000 ML IV STA (10:22)
[2024-03-12] MEDS ORDERED: PROPOFOL 40 ML ONE (10:43)
[2024-03-12] MEDS ORDERED: LIDOCAINE HCL/PF 2% SDV 5ML VIAL ONE (10:44)
[2024-03-12] MEDS ORDERED: MIDAZOLAM HCL 2 MG/2 ML SINGLE DOSE VIAL ONE (10:44)
[2024-03-12] MEDS ORDERED: PHENYLEPHRINE HCL 10 MG/1 ML SINGLE DOSE VIAL ONE (10:45)
[2024-03-12] MEDS ORDERED: ROCURONIUM BROMIDE 50 MG/5 ML SYRINGE ONE (11:27)
[2024-03-12] MEDS: ACETAMINOPHEN 1000 MG/100 ML BAG IVPB ONE ×2 (13:13→14:14)
[2024-03-12] MEDS: LACTATED RINGERS SOLUTION 1,000 ML IV SCH ×2 (14:14→14:15)
[2024-03-12] MEDS: NICOTINE POLACRILEX 4 MG GUM BUC PRN (14:22)
[2024-03-12] MEDS: KETOROLAC TROMETHAMINE 30 MG/1 ML VIAL IVPUSH PRN (16:14)
[2024-03-12] MEDS: INSULIN ASPART SLIDING SCALE (NOVOLOG) 1 VIAL SQ SCH (17:12)
[2024-03-12] MEDS: INSULIN (NOVOLOG) ASPART 100 UNITS/ML 10ML VIAL SQ SCH (17:17)
[2024-03-12] MEDS: AMINO ACIDS/PROTEIN HYDROLYS 30 ML LIQUID.PKT PO SCH (18:05)
[2024-03-12 19:02] LABS: BASO % 0.7 % (0-2.0); EOS % 1.2 % (0-4.5); HEMATOCRIT 20.5 % (35.4-49); LYMPH % 18.8 % (8-40); MCH 29.7 pg (25.7-33.7); MCHC 33.3 g/dl (32.0-35.9); MEAN CELL VOLUME 89.2 fl (80-96); MEAN PLT VOLUME 7.7 fl (7.5-11.1); NEUT % 73.3 % (42.8-82.8); PLATELET COUNT 247 10^3/uL (134-434); RDW 14.5 % (11.9-15.9)
[2024-03-12] MEDS: MELATONIN 5 MG TABLETS PO PRN (21:53)
[2024-03-12] MEDS: INSULIN (LEVEMIR) 100 UNITS/ML UNITS SQ SCH (21:54)
[2024-03-12] MEDS: SENNOSIDES 8.8 MG/5 ML SYRUP PO SCH (21:54)
[2024-03-12 23:34] LABS: HEMOGLOBIN 6.8 GM/dL (11.7-16.9)
[2024-03-13] MEDS: INSULIN (LEVEMIR) 100 UNITS/ML UNITS SQ SCH (06:23)
[2024-03-13] MEDS ORDERED: INSULIN (LEVEMIR) 100 UNITS/ML UNITS SQ SCH (07:00)
[2024-03-13] MEDS: ACETAMINOPHEN 1000 MG/100 ML BAG IVPB ONE (07:30)
[2024-03-13 08:51] LABS: BASO % 0.6 % (0-2.0); EOS % 1.7 % (0-4.5); HEMATOCRIT 24.6 % (35.4-49); HEMOGLOBIN 8.4 GM/dL (11.7-16.9); LYMPH % 24.7 % (8-40); MCH 29.4 pg (25.7-33.7); MCHC 34.3 g/dl (32.0-35.9); MEAN CELL VOLUME 85.9 fl (80-96); MEAN PLT VOLUME 7.5 fl (7.5-11.1); MONO % 6.6 % (3.8-10.2); NEUT % 66.4 % (42.8-82.8); PLATELET COUNT 306 10^3/uL (134-434); RBC 2.87 M/mm3 (4.00-5.60); RDW 15.7 % (11.9-15.9); WHITE BLOOD COUNT 18.9 K/mm3 (4.0-10.0)
[2024-03-13 08:58] LABS: INR 0.99 (0.83-1.09); PROTHROMBIN TIME (PATIENT) 11.2 SEC (9.7-13.0)
[2024-03-13 09:13] LABS: CHLORIDE 105 mmol/L (98-107); POTASSIUM 3.9 mmol/L (3.5-5.1); SODIUM 137 mmol/L (136-145)
[2024-03-13 09:16] LABS: ANION GAP 6 mmol/L (4-13); CO2 27 mmol/L (21-32)
[2024-03-13 09:17] LABS: MAGNESIUM 1.9 mg/dL (1.8-2.4)
[2024-03-13 09:19] LABS: SGPT/ALT 26 U/L (13-61)
[2024-03-13 09:20] LABS: CREATININE 0.9 mg/dL (0.55-1.3); PHOSPHOROUS 4.1 mg/dL (2.5-4.9); SGOT/AST 24 U/L (15-37)
[2024-03-13 09:21] LABS: BILIRUBIN,TOTAL 0.6 mg/dL (0.2-1); TOT PROT 5.9 g/dl (6.4-8.2)
[2024-03-13 09:22] LABS: ALK PHOS 105 U/L (45-117)
[2024-03-13] MEDS: MULTIVITAMINS (DAILY MVI) TABLET (FP) PO SCH (09:23)
[2024-03-13] MEDS: PANTOPRAZOLE 40 MG TABLET PO SCH (09:23)
[2024-03-13 09:24] LABS: ALBUMIN 1.4 g/dl (3.4-5.0); GLUCOSE,RANDOM 45 mg/dL (74-106)
[2024-03-13] MEDS: POLYETHYLENE GLYCOL (HEALTHYLAX) 3350 17 GM PACKET PO SCH (09:25)
[2024-03-13] MEDS: NICOTINE 21 MG/24 HOURS TOPICAL PATCH TD SCH (09:27)
[2024-03-13] MEDS: DAPTOMYCIN 650 MG in SODIUM CHLORIDE 50 ML IVPB SCH (14:06)
[2024-03-13 15:15] LABS: BASO % 0.5 % (0-2.0); EOS % 1.5 % (0-4.5); HEMATOCRIT 22.5 % (35.4-49); HEMOGLOBIN 7.8 GM/dL (11.7-16.9); LYMPH % 15.1 % (8-40); MCH 29.7 pg (25.7-33.7); MCHC 34.6 g/dl (32.0-35.9); MEAN CELL VOLUME 85.8 fl (80-96); MEAN PLT VOLUME 7.5 fl (7.5-11.1); MONO % 6.5 % (3.8-10.2); NEUT % 76.4 % (42.8-82.8); PLATELET COUNT 255 10^3/uL (134-434); RBC 2.62 M/mm3 (4.00-5.60); WHITE BLOOD COUNT 15.1 K/mm3 (4.0-10.0)
[2024-03-13] MEDS: DEXTROSE 5%-0.45% SALINE 1,000 ML IV SCH (15:34)
[2024-03-13] MEDS ORDERED: DEXTROSE 50%-WATER - 25 GM/50 ML VIAL IVPUSH PRN (19:56)
[2024-03-13] MEDS: INSULIN ASPART SLIDING SCALE (NOVOLOG) 1 VIAL SQ SCH (21:57)
[2024-03-13] MEDS ORDERED: INSULIN (LEVEMIR) 100 UNITS/ML UNITS SQ ONE (22:00)
[2024-03-14] MEDS: ACETAMINOPHEN 1000 MG/100 ML BAG IVPB ONE (03:49)
[2024-03-14] MEDS ORDERED: INSULIN (LEVEMIR) 100 UNITS/ML UNITS SQ ONE (06:00)
[2024-03-14] MEDS: INSULIN ASPART SLIDING SCALE (NOVOLOG) 1 VIAL SQ SCH (08:04)
[2024-03-14] MEDS: INSULIN (LEVEMIR) 100 UNITS/ML UNITS SQ ONE (08:05)
[2024-03-14 09:33] LABS: BASO % 1.1 % (0-2.0); EOS % 1.5 % (0-4.5); HEMATOCRIT 21.7 % (35.4-49); HEMOGLOBIN 7.3 GM/dL (11.7-16.9); LYMPH % 19.6 % (8-40); MCH 29.5 pg (25.7-33.7); MCHC 33.5 g/dl (32.0-35.9); MEAN CELL VOLUME 88.1 fl (80-96); MEAN PLT VOLUME 8.4 fl (7.5-11.1); NEUT % 72.8 % (42.8-82.8); PLATELET COUNT 271 10^3/uL (134-434); RBC 2.47 M/mm3 (4.00-5.60); WHITE BLOOD COUNT 13.2 K/mm3 (4.0-10.0)
[2024-03-14 09:53] LABS: ALBUMIN 1.4 g/dl (3.4-5.0); BLOOD UREA NITROGEN 22.1 mg/dL (7-18)
[2024-03-14 09:57] LABS: CREATININE 0.8 mg/dL (0.55-1.3); PHOSPHOROUS 5.2 mg/dL (2.5-4.9)
[2024-03-14 09:58] LABS: BILIRUBIN,TOTAL 0.9 mg/dL (0.2-1); TOT PROT 6.1 g/dl (6.4-8.2)
[2024-03-14] MEDS: CLINDAMYCIN HCL 150 MG CAPSULE (FP) PO SCH (17:09)
[2024-03-14] MEDS ORDERED: DEXTROSE 50%-WATER 25 GM/50 ML DISP.SYRIN IVPUSH PRN (23:42)
[2024-03-14] MEDS: KETOROLAC TROMETHAMINE 30 MG/1 ML VIAL IVPUSH ONE (23:57)
[2024-03-15 10:15] LABS: BASO % 0.9 % (0-2.0); EOS % 2.5 % (0-4.5); HEMATOCRIT 21.6 % (35.4-49); HEMOGLOBIN 7.4 GM/dL (11.7-16.9); LYMPH % 21.3 % (8-40); MCH 30.7 pg (25.7-33.7); MCHC 34.4 g/dl (32.0-35.9); MEAN CELL VOLUME 89.3 fl (80-96); MEAN PLT VOLUME 7.8 fl (7.5-11.1); MONO % 6.3 % (3.8-10.2); PLATELET COUNT 319 10^3/uL (134-434); RBC 2.42 M/mm3 (4.00-5.60); RDW 15.6 % (11.9-15.9); WHITE BLOOD COUNT 10.8 K/mm3 (4.0-10.0)
[2024-03-15 12:15] LABS: POTASSIUM 4.5 mmol/L (3.5-5.1)
[2024-03-15 12:21] LABS: CALCIUM 8.1 mg/dL (8.5-10.1)
[2024-03-15 12:22] LABS: ALBUMIN 1.4 g/dl (3.4-5.0); BLOOD UREA NITROGEN 21.1 mg/dL (7-18); MAGNESIUM 1.9 mg/dL (1.8-2.4)
[2024-03-15 12:25] LABS: CREATININE 0.7 mg/dL (0.55-1.3)
[2024-03-15 12:26] LABS: BILIRUBIN,TOTAL 0.4 mg/dL (0.2-1)
[2024-03-15 12:27] LABS: TOT PROT 6.2 g/dl (6.4-8.2)
[2024-03-15] MEDS: ACETAMINOPHEN 325 MG TABLET (FP) PO PRN (16:36)
[2024-03-15] MEDS: INSULIN (LEVEMIR) 100 UNITS/ML UNITS SQ SCH (22:27)
[2024-03-16 07:22] LABS: BASO % 0.9 % (0-2.0); EOS % 2.3 % (0-4.5); HEMATOCRIT 22.9 % (35.4-49); HEMOGLOBIN 7.8 GM/dL (11.7-16.9); MCH 30.3 pg (25.7-33.7); MCHC 34.1 g/dl (32.0-35.9); MEAN CELL VOLUME 88.8 fl (80-96); MEAN PLT VOLUME 7.4 fl (7.5-11.1); MONO % 6.6 % (3.8-10.2); NEUT % 65.2 % (42.8-82.8); PLATELET COUNT 359 10^3/uL (134-434); RBC 2.58 M/mm3 (4.00-5.60); RDW 15.8 % (11.9-15.9); WHITE BLOOD COUNT 9.6 K/mm3 (4.0-10.0)
[2024-03-16 08:06] LABS: POTASSIUM 4.1 mmol/L (3.5-5.1)
[2024-03-16 08:10] LABS: ALBUMIN 1.3 g/dl (3.4-5.0); BLOOD UREA NITROGEN 23.8 mg/dL (7-18); MAGNESIUM 1.6 mg/dL (1.8-2.4)
[2024-03-16 08:12] LABS: BILIRUBIN,TOTAL 0.4 mg/dL (0.2-1); CREATININE 0.9 mg/dL (0.55-1.3); PHOSPHOROUS 4.8 mg/dL (2.5-4.9)
[2024-03-16] MEDS ORDERED: MAGNESIUM OXIDE 400 MG TABLET (FP) PO ONE (08:16)
[2024-03-16] MEDS: LACTOBACILLUS ACIDOPHILUS 1 TABLET PO SCH (10:29)
[2024-03-16] MEDS: MAGNESIUM OXIDE 400 MG TABLET (FP) PO ONE ×2 (10:39→15:28)
[2024-03-16] MEDS ORDERED: CYCLOBENZAPRINE HCL 10 MG TABLET (FP) PO PRN (10:55)
[2024-03-16 20:19] VITALS: RESP 18
[2024-03-16] MEDS: CYCLOBENZAPRINE HCL 5 MG TABLET PO PRN (22:00)
[2024-03-17 10:05] LABS: HEMATOCRIT 24.8 % (35.4-49); HEMOGLOBIN 8.3 GM/dL (11.7-16.9); MCH 30.2 pg (25.7-33.7); MCHC 33.4 g/dl (32.0-35.9); MEAN CELL VOLUME 90.4 fl (80-96); MEAN PLT VOLUME 7.7 fl (7.5-11.1); PLATELET COUNT 401 10^3/uL (134-434); RBC 2.74 M/mm3 (4.00-5.60); RDW 15.9 % (11.9-15.9); WHITE BLOOD COUNT 8.7 K/mm3 (4.0-10.0)
[2024-03-17 10:09] LABS: POTASSIUM 4.4 mmol/L (3.5-5.1)
[2024-03-17 10:16] LABS: CALCIUM 8.3 mg/dL (8.5-10.1)
[2024-03-17 10:17] LABS: ALBUMIN 1.4 g/dl (3.4-5.0); BLOOD UREA NITROGEN 21.4 mg/dL (7-18)
[2024-03-17 10:20] LABS: CREATININE 0.7 mg/dL (0.55-1.3)
[2024-03-17 10:22] LABS: BILIRUBIN,TOTAL 0.4 mg/dL (0.2-1); TOT PROT 6.3 g/dl (6.4-8.2)
[2024-03-17] MEDS: INSULIN ASPART SLIDING SCALE (NOVOLOG) 1 VIAL SQ SCH (21:29)
[2024-03-18 09:35] LABS: BASO % 0.7 % (0-2.0); EOS % 3.3 % (0-4.5); HEMATOCRIT 24.3 % (35.4-49); HEMOGLOBIN 8.2 GM/dL (11.7-16.9); LYMPH % 27.7 % (8-40); MCHC 33.8 g/dl (32.0-35.9); MEAN CELL VOLUME 88.8 fl (80-96); MEAN PLT VOLUME 7.2 fl (7.5-11.1); MONO % 6.4 % (3.8-10.2); NEUT % 61.9 % (42.8-82.8); PLATELET COUNT 413 10^3/uL (134-434); RBC 2.74 M/mm3 (4.00-5.60); WHITE BLOOD COUNT 9.5 K/mm3 (4.0-10.0)
[2024-03-18 09:43] LABS: POTASSIUM 4.5 mmol/L (3.5-5.1)
[2024-03-18 09:51] LABS: ALBUMIN 1.3 g/dl (3.4-5.0); CALCIUM 8.5 mg/dL (8.5-10.1)
[2024-03-18 09:52] LABS: BLOOD UREA NITROGEN 25.3 mg/dL (7-18); MAGNESIUM 1.7 mg/dL (1.8-2.4)
[2024-03-18 09:55] LABS: CREATININE 0.8 mg/dL (0.55-1.3); PHOSPHOROUS 4.8 mg/dL (2.5-4.9)
[2024-03-18 09:56] LABS: BILIRUBIN,TOTAL 0.3 mg/dL (0.2-1); TOT PROT 6.3 g/dl (6.4-8.2)
[2024-03-18] MEDS: MAGNESIUM SULF 50% (8.12 MEQ/2 ML-1 GM VIAL) IVPB ONE (12:45)
[2024-03-18] MEDS: diphenhydrAMINE HCL 25 MG CAPSULE (FP) PO PRN (23:40)
[2024-03-19 09:51] LABS: BASO % 0.8 % (0-2.0); HEMATOCRIT 22.7 % (35.4-49); HEMOGLOBIN 7.9 GM/dL (11.7-16.9); LYMPH % 26.1 % (8-40); MCH 30.7 pg (25.7-33.7); MCHC 34.6 g/dl (32.0-35.9); MEAN CELL VOLUME 88.7 fl (80-96); MEAN PLT VOLUME 7.4 fl (7.5-11.1); MONO % 5.5 % (3.8-10.2); NEUT % 64.6 % (42.8-82.8); PLATELET COUNT 442 10^3/uL (134-434); RBC 2.56 M/mm3 (4.00-5.60); RDW 15.8 % (11.9-15.9)
[2024-03-19] MEDS: INSULIN ASPART SLIDING SCALE (NOVOLOG) 1 VIAL SQ SCH (10:59)
[2024-03-19] MEDS: INSULIN (LEVEMIR) 100 UNITS/ML UNITS SQ SCH ×2 (10:59→21:40)
[2024-03-19 11:07] LABS: ALBUMIN 1.4 g/dl (3.4-5.0); BLOOD UREA NITROGEN 28.5 mg/dL (7-18); CALCIUM 8.2 mg/dL (8.5-10.1); MAGNESIUM 2.1 mg/dL (1.8-2.4)
[2024-03-19 11:10] LABS: CREATININE 0.9 mg/dL (0.55-1.3)
[2024-03-19 11:11] LABS: PHOSPHOROUS 4.8 mg/dL (2.5-4.9)
[2024-03-19 11:12] LABS: BILIRUBIN,TOTAL 0.3 mg/dL (0.2-1); TOT PROT 6.3 g/dl (6.4-8.2)
[2024-03-19] MEDS ORDERED: INSULIN (LEVEMIR) 100 UNITS/ML UNITS SQ SCH ×2 (12:53→22:00)
[2024-03-20] MEDS: INSULIN (LEVEMIR) 100 UNITS/ML UNITS SQ SCH (07:51)
[2024-03-20] MEDS: methaDONE HCL 40 MG DISPERSABLE TABLET PO ONE (10:19)
[2024-03-20 10:27] LABS: BASO % 0.6 % (0-2.0); EOS % 3.2 % (0-4.5); HEMATOCRIT 25.6 % (35.4-49); HEMOGLOBIN 8.8 GM/dL (11.7-16.9); LYMPH % 30.6 % (8-40); MCH 30.7 pg (25.7-33.7); MCHC 34.4 g/dl (32.0-35.9); MEAN CELL VOLUME 89.2 fl (80-96); MEAN PLT VOLUME 7.1 fl (7.5-11.1); MONO % 6.4 % (3.8-10.2); NEUT % 59.2 % (42.8-82.8); PLATELET COUNT 463 10^3/uL (134-434); RBC 2.87 M/mm3 (4.00-5.60); WHITE BLOOD COUNT 8.9 K/mm3 (4.0-10.0)
[2024-03-20 10:52] LABS: POTASSIUM 4.5 mmol/L (3.5-5.1)
[2024-03-20 11:05] LABS: ALBUMIN 1.5 g/dl (3.4-5.0); CALCIUM 8.6 mg/dL (8.5-10.1); MAGNESIUM 1.9 mg/dL (1.8-2.4)
[2024-03-20 11:07] LABS: PHOSPHOROUS 5.7 mg/dL (2.5-4.9)
[2024-03-20 11:08] LABS: CREATININE 0.9 mg/dL (0.55-1.3); TOT PROT 6.9 g/dl (6.4-8.2)
[2024-03-20 11:12] LABS: BILIRUBIN,TOTAL 0.3 mg/dL (0.2-1)
[2024-03-20 11:16] LABS: BLOOD UREA NITROGEN 28.6 mg/dL (7-18)
[2024-03-21] MEDS ORDERED: methaDONE HCL 40 MG DISPERSABLE TABLET PO SCH (06:00)
[2024-03-21 06:16] VITALS: TEMP 97.7
[2024-03-21 10:10] LABS: BASO % 0.9 % (0-2.0); EOS % 3.6 % (0-4.5); HEMATOCRIT 26.4 % (35.4-49); HEMOGLOBIN 8.6 GM/dL (11.7-16.9); LYMPH % 34.9 % (8-40); MCH 29.7 pg (25.7-33.7); MCHC 32.6 g/dl (32.0-35.9); MEAN CELL VOLUME 91.1 fl (80-96); MEAN PLT VOLUME 7.3 fl (7.5-11.1); MONO % 6.8 % (3.8-10.2); NEUT % 53.8 % (42.8-82.8); PLATELET COUNT 520 10^3/uL (134-434); RDW 16.4 % (11.9-15.9)
[2024-03-21 10:36] LABS: POTASSIUM 4.8 mmol/L (3.5-5.1)
[2024-03-21 10:41] LABS: ALBUMIN 1.5 g/dl (3.4-5.0); CALCIUM 8.6 mg/dL (8.5-10.1)
[2024-03-21 10:42] LABS: BLOOD UREA NITROGEN 30.9 mg/dL (7-18); MAGNESIUM 2.1 mg/dL (1.8-2.4)
[2024-03-21 10:45] LABS: CREATININE 0.9 mg/dL (0.55-1.3); PHOSPHOROUS 5.8 mg/dL (2.5-4.9)
[2024-03-21 10:46] LABS: BILIRUBIN,TOTAL 0.2 mg/dL (0.2-1)
[2024-03-21 17:31] VITALS: BP 105/76; PULSE 68
== END 2024-03-21 14:11 | disposition home or self-care (01) | DRG 710 ==
LOC: JER 05:47 → JERBED 12:14 → OBSVTOIN 13:52 → J7W 21:52 → J6S 03-10 14:46
PROVIDERS: ADMIT Internal Medicine
PROC: 0W980ZZ Drainage of Chest Wall, Open Approach (ICD-10-PCS; 2024-02-15)
PROC: 0JB60ZZ Excision of Chest Subcutaneous Tissue and Fascia, Open Approach (ICD-10-PCS; 2024-02-15)
PROC: 30233N1 Transfusion of Nonautologous Red Blood Cells into Peripheral Vein, Percutaneous Approach (ICD-10-PCS; 2024-02-16)
PROC: 0J990ZZ Drainage of Buttock Subcutaneous Tissue and Fascia, Open Approach (ICD-10-PCS; 2024-02-18)
PROC: 0J9N0ZZ Drainage of Right Lower Leg Subcutaneous Tissue and Fascia, Open Approach (ICD-10-PCS; principal; 2024-02-18 14:45)
PROC: 0Y9D0ZZ Drainage of Left Upper Leg, Open Approach (ICD-10-PCS; 2024-03-10)
PROC: 0Y3H0ZZ Control Bleeding in Right Lower Leg, Open Approach (ICD-10-PCS; 2024-03-12)
DX: A41.02 Sepsis due to Methicillin resistant Staphylococcus aureus (principal); E10.10 Type 1 diabetes mellitus with ketoacidosis without coma; N17.9 Acute kidney failure, unspecified; E44.0 Moderate protein-calorie malnutrition; D62 Acute posthemorrhagic anemia; E87.1 Hypo-osmolality and hyponatremia; F14.20 Cocaine dependence, uncomplicated; E87.5 Hyperkalemia; M96.830 Postprocedural hemorrhage of a musculoskeletal structure following a musculoskeletal system procedure; S21.101A Unspecified open wound of right front wall of thorax without penetration into thoracic cavity, initial encounter; E88.09 Other disorders of plasma-protein metabolism, not elsewhere classified; L02.415 Cutaneous abscess of right lower limb; Y83.9 Surgical procedure, unspecified as the cause of abnormal reaction of the patient, or of later complication, without mention of misadventure at the time of the procedure; D47.3 Essential (hemorrhagic) thrombocythemia; F11.10 Opioid abuse, uncomplicated; F39 Unspecified mood [affective] disorder; L08.9 Local infection of the skin and subcutaneous tissue, unspecified; Z59.00 Homelessness unspecified; A49.02 Methicillin resistant Staphylococcus aureus infection, unspecified site; Z68.23 Body mass index [BMI] 23.0-23.9, adult; L02.31 Cutaneous abscess of buttock
CPT/HCPCS: 36415; 36430; 70450-TC; 71045-TC-FY; 71260-TC; 72131-TC; 72158-TC; 73552-TC-RT-FY; 73562-TC-RT-FY; 73590-TC-RT-FY; 73701-TC-RT; 74176-TC; 75635-TC; 76700-TC; 76775-TC; 80048; 80053; 80307; 81003; 82010; 82272; 82550; 82607; 82728; 82747; 82803; 82962; 82977; 83010; 83036; 83516; 83520; 83540; 83550; 83605; 83615; 83735; 83880; 84100; 84439; 84443; 84484; 85014; 85025; 85027; 85045; 85610; 85651; 85730; 86038; 86140; 86160; 86225; 86256; 86705; 86850; 86880; 86900; 86901; 86922; 87040; 87070; 87086; 87186; 87205; 87340; 87389; 87517; 87522; 88304-TC; 93005; 93010; 93306-TC; 93970-TC; 93971-TC; 94760; 97116-GP; 97162-GP; 99285-25; G0378; G0480; J0131; J0878; J1100; J1644; P9038; P9047; P9058; Q9967